=== PATIENT | male | born 1955 | race Caucasian/White ===

== ENCOUNTER 2018-12-15 03:45 | Emergency (ER) | payer OTHER, SELFPAY ==
[2018-12-15 03:46] VITALS: BP 159/102; PULSE 76; RESP 22; TEMP 36.4; O2SAT 100; BMI 29.9
--- NOTE | 2018-12-15 03:58 | ED.VISSUMM ---
- ER Visit Summary Date of Service: 12/15/18 Chief Complaint: Difficulty urinating, bleeding History of Present Illness: The patient is a 63 M who recently started to perform self cath at home due to not being able to empty his bladder. He is still undergoing testing. He follows with Dr. Menezes who comes down to the [facility]. Patient states he was given different chronic catheter to try that had a curved tip. He self cathed around midnight tonight after getting off work and has had bleeding from his penis since that time. He tried to increase fluids to flush himself out, but continues to bleed significantly. Patient takes baby aspirin daily but no other anticoagulants. Physical Examination: Vital signs significant for blood pressure 159/102, otherwise unremarkable. Patient standing at bedside holding a urinal with bloody urine in it. Heart is regular rate and rhythm. Lungs sounds are clear. Abdomen is soft nontender. Test Results: CBC was a hemoglobin of 12.0. Chemistry studies reveal glucose of 179, BUN 28, creatinine 1.83. Coags are normal. I do not have any prior lab values to compare to here. I checked [employer] and do not have prior lab values. Emergency Department Course and Treatment: Patient had a three-way catheter placed and irrigation was started.. There is return of dark bloody urine. Manual irrigation has been required frequently to break up clots. I did review notes from [facility] urology. Patient had an elevated PSA of 4.49 on October 02. He is scheduled to have a cystoscopy in December in [place]. I discussed with the patient his need for hospital admission. I spoke with our local urologist, but he will be out of town this weekend and not able to care for the patient unless bleeding stops very shortly. He recommended hospitalization at a tertiary facility. I spoke with [facility] and patient has been accepted by Dr. Delgado. Treatment Plan: [] Disposition: Transfer Impression: Gross hematuria This note was generated with [employer] dictation software. It may contain incorrect words, spelling, and punctuation that were not noted in review of the chart prior to signing ED Disposition - Plan for ED Patient: Referrals: Care Physician,No Primary [NON-STAFF] -
[2018-12-15 04:18] LABS: Absolute Lymphocyte Count 2.05 X10^3/ul (0.83-4.51); Basophil# 0.06 X10^3/uL; Basophil% 0.7 % (0-1); Eosinophil# 0.23 X10^3/uL; Eosinophils% 2.7 % (0-5); Hematocrit 35.5 % (40-54); Lymphocyte # 2.05 X10^3/ul (4.0); Lymphocyte % 24.5 % (19-41); Mean Corp Hgb Conc 33.8 g/gl (32-36); Mean Corpuscular Hgb 29.1 pg (27.0-32.0); Monocyte% 11.9 % (0-10); Neutrophil # 5.01 X10^3/uL (2.7-7.7); Platelet Count 259 K/mm3 (150-450); RBC Distribution Width CV 12.9 % (11.6-14.6); RBC Distribution Width SD 39.5 fl (35.1-43.9); Red Blood Count 4.13 M/mm3 (4.6-6.2); White Blood Count 8.4 K/mm3 (4.4-11.0)
[2018-12-15] MEDS: 0.9% Normal Saline 1,000 ML 150 ML IV (04:18)
[2018-12-15 04:19] LABS: POSITIVE COUNT NO; POSITIVE DIFFERENTIAL NO; POSITIVE MORPHOLOGY NO
[2018-12-15 04:27] LABS: Prothrombin Time (Protime)PT. 13.4 SECONDS (11.7-14.9)
[2018-12-15 04:28] LABS: Partial Thromboplast Time 29.1 Seconds (24.1-36.2)
[2018-12-15 04:36] LABS: Anion Gap 13 (5-15); BUN 28 mg/dL (7-18); BUN/Creat Ratio 15.3 RATIO (10-20); Calcium,Total 8.5 mg/dL (8.5-10.1); Chloride 105 mmol/L (98-107); Creatinine, Serum 1.83 mg/dL (0.70-1.30); EST Glomerular Filtration Rate 40 mL/min (>60); Est Glom Filt Rate - Afr Amer 48 mL/min (>60); Estimated Creatinine Clearance 42.86 ml/min; Glucose 179 mg/dL (74-106); Potassium 3.7 mmol/L (3.5-5.1); Sodium Level 139 mmol/L (136-145)
[2018-12-15] MEDS: LORazepam 2 MG/ML Syringe 0.5 MG IV (05:00)
--- NOTE | 2018-12-15 05:56 | ED.RN ---
PT DOOLEY MANUALLY IRRIGATED FOR MANY LUZ SIZE CLOTS. DOOLEY WILL DRAIN WITH THE CONTINUOUS IRRIGATION FOR BRIEF TIME THEN WILL REQUIRE MANUAL IRRIGATION. AT THIS TIME, DOOLEY DRAINING NUR RED
--- NOTE | 2018-12-15 06:11 | NURSING ---
ACCEPTED TO [facility] BY DR. LAM 1 BED REPORT
[2018-12-15 06:29] VITALS: BP 122/64; PULSE 76; RESP 16; O2SAT 98
[2018-12-15 07:04] VITALS: BP 122/74; PULSE 94; RESP 16; TEMP 36.4; O2SAT 98
[2018-12-15 08:21] VITALS: BP 124/71; PULSE 87; RESP 14; O2SAT 97
--- NOTE | 2018-12-15 08:22 | ED.RN ---
EMS IN ED.
== END 2018-12-15 08:28 | disposition short-term general hospital (02) ==
PROVIDERS: Emergency Provider Emergency Medicine; Family Provider Family Medicine; PCP Family Medicine
DX: R31.0 Gross hematuria (principal); E11.9 Type 2 diabetes mellitus without complications; E78.00 Pure hypercholesterolemia, unspecified; I10 Essential (primary) hypertension; Z79.82 Long term (current) use of aspirin; Z79.84 Long term (current) use of oral hypoglycemic drugs; Z79.899 Other long term (current) drug therapy
CPT/HCPCS: 51702; 80048; 85025; 85610; 85730; 86850; 86900; 96361; 96374; 99285; J7120; A4216

== ENCOUNTER → 2020-04-22 | Outpatient (CLI) | payer OTHER, SELFPAY ==
[2020-04-22 11:41] VITALS: BMI 28.7
--- NOTE | 2020-04-22 11:50 | LES_PTH ---
PATIENT: FABIO ROSE LOC: [facility] U#:[id number] AGE/SX: 64/M ROOM: RE04/22/[address]: Dr. Clifton Giles MD : [id number] BED: DIS: 04/22/2020 SPEC #: [id number] RECD: 04/22/20 12:46 STATUS: JOHANA CHERRYLele #: [id number] BERNARD: 04/22/20 11:[address]: Clifton Giles DEPT: SURGICAL PATHOLOGY RECD BY: Elkin Christine ENTERED: 04/23/20 09:26 SP TYPE: Lesion OTHR DR: Dr. Alexandre Giles III, MD Tissues: A - Skin of abdomen, NOS B - Skin of abdomen, NOS Procedures: Surgery Specimen Level IV HEADER OPERATION: Excision of abdominal lesion x2 PRE-OP DIAGNOSIS: Neoplasm abdomen x2 TISSUE SUBMITTED: A - Right superior abdomen, B - Right inferior abdomen MICROSCOPIC DIAGNOSIS A. Right superior abdomen lesion, excisional biopsy: Compound nevus, completely excised in the planes of sections examined. B. Right inferior abdomen lesion, excisional biopsy: Compound nevus, completely excised in the planes of sections examined. SJ:rg 04/24/20 COMMENT Case has been reviewed in consultation with Dr. Mathias who concurs with the above diagnosis. IDC:AM MICROSCOPIC DESCRIPTION Slides are reviewed. GROSS DESCRIPTION A - Received in fixative is one container labeled with the patient's name and designated right superior abdomen. The specimen consists of a piece of castillo-white skin measuring 1.4 x 0.5 x 0.3 cm. A brown lesion is noted on the surface measuring 0.3 x 0.3 cm. The specimen is inked, serially sectioned and submitted entirely in one cassette. B - Received in fixative is one container labeled with the patient's name and designated right inferior abdomen. The specimen consists of a piece of castillo-white skin measuring 1 x 0.5 cm and up to 0.5 cm in thickness. A brown lesion is noted in the center measuring 0.3 x 0.2 cm. The specimen is inked, serially sectioned and submitted entirely in one cassette. / JOHN:avila 04/23/20 TC:1 CPT: 87745 x2
== END | disposition home or self-care (01) ==
LOC: LABSPEC 12:50
PROVIDERS: PCP Family Medicine; Referring Provider Surgery; Visit Provider Surgery
DX: D22.5 Melanocytic nevi of trunk (principal)
CPT/HCPCS: 88305

== ENCOUNTER 2021-11-04 13:30 | Outpatient (CLI) | payer OTHER, SELFPAY ==
--- NOTE | 2021-11-04 13:34 | ECHOD_ITS ---
Reason For Study: Arrhythmia Procedure This was a 2D Doppler, Color Flow transthoracic echocardiogram. Exam performed in department. Left Ventricle Normal LV size. Left ventricular systolic function is normal. The estimated ejection fraction is 60 %. Stage 1 diastolic dysfunction. No regional wall motion abnormalities noted. Right Ventricle Normal RV size. Normal systolic function. Atria Normal left atrium. Normal right atrium. Mitral Valve Normal mitral valve. Mild (1+) eccentric mitral valve insufficiency. Tricuspid Valve Normal tricuspid valve. Mild (1+) tricuspid valve insufficiency. Pulmonary artery systolic pressure is 28 mmHg. Aortic Valve Trisinus/trileaflet aortic valve. Pulmonic Valve Normal pulmonic valve. Great Vessels Normal aortic root. The pulmonary artery is normal size. Normal inferior vena cava. Pericardium/Pleural No pericardial effusion. MMode/2D Measurements & Calculations LVIDd: 4.1 cm IVSd: 1.1 cm LA dimension: 4.5 cm LVIDs: 2.6 cm LVPWd: 0.94 cm FS: 35.0 % LAV(MOD-bp): 59.9 ml LA A4 area: 19.9 cm2 RA A4 area: 20.4 cm2 LAV(MOD-bp) Indexed: 28.6 ml/m2 LAV(MOD-sp2): 62.6 ml LAV(MOD-sp4): 56.0 ml Time Measurements MV dec time: 0.27 sec Doppler Measurements & Calculations MV E max sumit: 62.0 cm/sec Lat Peak E' Sumit: 6.5 cm/sec Med Peak E' Sumit: 4.4 cm/sec MV A max sumit: 97.5 cm/sec E/E' lat: 9.5 E/E' med: 14.1 MV E/A: 0.64 MV V2 max: 111.7 cm/sec MV P1/2t max sumit: 80.8 cm/sec Ao V2 max: 128.4 cm/sec MV max P.0 mmHg MV P1/2t: 102.7 msec Ao max P.6 mmHg MV V2 mean: 55.0 cm/sec MV dec slope: 230.3 cm/sec2 MV mean P.5 mmHg MVA(P1/2t): 2.1 cm2 MV V2 VTI: 25.8 cm LV V1 max: 105.1 cm/sec PA V2 max: 88.6 cm/sec TR max sumit: 245.0 cm/sec LV V1 max P.4 mmHg TR max P.0 mmHg ECHO/Echo Complete Interpretation Summary Normal LV size. Left ventricular systolic function is normal. The estimated ejection fraction is 60 %. Mild (1+) eccentric mitral valve insufficiency. Pulmonary artery systolic pressure is 28 mmHg. Stage 1 diastolic dysfunction. Structurally normal valves. Ordering Physician: Kashif Schneider Referring Physician: Cruz Damon Performed By: Michael Romeo RCS
== END 2021-11-04 23:59 | disposition short-term general hospital (02) ==
LOC: CVS 13:33
PROVIDERS: PCP Family Medicine; Referring Provider Internal Medicine Cardiovascular Disease; Visit Provider Internal Medicine Cardiovascular Disease
DX: I10 Essential (primary) hypertension (principal); I47.1 Supraventricular tachycardia
CPT/HCPCS: 93306

== ENCOUNTER 2022-02-03 10:09 | Emergency (ER) | payer OTHER, SELFPAY ==
[2022-02-03 10:11] VITALS: BP 153/90; PULSE 69; RESP 14; TEMP 36.5; O2SAT 98; BMI 28.4
--- NOTE | 2022-02-03 10:35 | EDS_ITS ---
HPI History of Present Illness Chief Complaint: Eye Problem Informant: patient Onset/Context/Timing Location: Right Eye Onset: Today Timing: Continuous Current Severity: Mild Maximum Severity: Mild Associated Symptoms Associated Symptoms - Eyes: Foreign body sensation and Itching; Negative for Burning, Crusting, Drainage, Eyelid swelling, Matting, Pain, Photophobia and Redness History of injury: No Narrative Narrative: History of diabetes and hypertension. He wears glasses. No contacts. No prior eye surgery. States 1 to 2 weeks ago it is similar episode where he felt there was a foreign body or something in his eye. He went to an urgent care they did not see anything specific they placed him on eye ointment. He denies any discharge or swelling no specific change in his vision. 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 Patient is having painless decreased vision in his right eye Prior similar symptoms: Yes Recent Illness/Hospitalization: No PFSH PFSH Medical History Anxiety Back problem BPH (benign prostatic hyperplasia) COVID-19 virus detected (07/06/21) Depression Dyslipidemia Essential hypertension GERD (gastroesophageal reflux disease) Paroxysmal supraventricular tachycardia Superficial spreading malignant melanoma of skin Type 2 diabetes mellitus Home Medications rosuvastatin 5 mg PO DAILY 03/13/17 [History Last Taken Unknown] cyclobenzaprine 10 mg tablet 10 mg PO TID PRN 02/12/20 [History Last Taken Unknown] esomeprazole magnesium 40 mg granules delayed release for susp 40 mg PO DAILY 02/12/20 [History Last Taken Unknown] dulaglutide 1.5 mg/0.5 mL subcutaneous pen injector 1.5 mg SUBCUT QWEEK 10/21/21 [History Last Taken Unknown] metformin 1,000 mg tablet 1,000 mg PO BIDCM tab 10/21/21 [History Last Taken Unknown] trazodone 100 mg tablet 100 mg PO DAILY tab 10/21/21 [History Last Taken Unknown] amlodipine 10 mg tablet 10 mg PO DAILY #90 tab 12/02/21 [Rx Last Taken Unknown] carvedilol 25 mg tablet 25 mg PO BID #180 tab 12/02/21 [Rx Last Taken Unknown] losartan 100 mg tablet 100 mg PO DAILY #90 tab 12/02/21 [Rx Last Taken Unknown] erythromycin 02/03/22 [History Last Taken Unknown] Allergy/AdvReac Type Severity Reaction Status Date / Time tramadol Allergy Mild rash Verified 02/03/22 10:13 amitriptyline Allergy Hives Verified 02/03/22 10:13 bee venom protein (honey bee) Allergy Anaphylaxis Verified 02/03/22 10:13 Family History Mother Cancer lung Father Alzheimer disease Surgical History History of colonoscopy History of prostatectomy History of radiofrequency ablation procedure for cardiac arrhythmia (2013) History of repair of left rotator cuff History of tonsillectomy Social History Smoking Status: Former smoker how long ago did patient quit smokin years ago alcohol intake: current alcohol intake frequency: holidays/special occasions only substance use type: does not use caffeine: Yes Type: coffee ROS ROS ED Review of Systems ROS Unobtainable: Denies due to encephalopathy Constitutional Constitutional ED: Denies fever(s) Eyes Eyes: Denies blurry vision, change in vision or diplopia ENT ENT ED: Denies ear pain Cardiovascular Cardiovascular: Denies chest pain Respiratory/Chest Respiratory/Chest: Denies dyspnea Gastrointestinal Gastrointestinal: Denies abdominal pain, diarrhea, nausea or vomiting Genitourinary Genitourinary ED: Denies dysuria Musculoskeletal Musculoskeletal: Denies myalgias Integumentary Denies rash Neurologic Neurologic: Denies headache(s) Psychiatric Psychiatric: Denies depression Endocrine Endocrinology: Denies polyuria Hematologic/Lymphatic Hematologic/Lymphatic: Denies easy bruising Allergic/Immunologic Allergic/Immunologic ED: Denies urticaria EXAM Physical Exam Narrative Exam Narrative: 66-year-old male no acute distress. Vital signs stable afebrile. Visual acuity is 20/50 right eye and 20/25 left eye and 20/25 bilaterally. Pupils round reactive light extra motions are intact. There is no signs of any swelling to either the upper or lower lid of the right eye. There is no discharge or drainage there is no excessive watering. He can open and close both eyes without difficulty. I everted the upper and lower lids of the right eye there is no foreign body or any abnormality. Lungs are clear. Heart regular rhythm. Abdomen soft nontender. Neurologic exam normal. Const Vital Signs: 02/03/22 10:11 Temperature 97.7 F L Temperature Source Temporal Pulse Rate 69 Respiratory Rate 14 Blood Pressure 153/90 H Blood Pressure Mean 111 Pulse Ox 98 Oxygen Delivery Method Room Air Positive well nourished and well developed; Negative for obese, cachectic, contractures or unkempt General Appearance ED: well developed and NAD; Negative for unkempt, cachectic or contractures Nutritional Appearance: Negative for cachectic or obese HEENT atraumatic; Negative for trauma or tenderness Eyes General Eye ED: Yes normal appearance of both eyes, normal light reflex and exophthalmos; Negative for enophthalmos, proptosis, pale conjunctiva or scleral icterus Visual Acuity: visual acuity right eye 50 and visual acuity left eye 25 Periorbital: periorbital findings normal Eyelid: eyelids normal Conjunctiva: conjunctiva normal Sclera: sclera normal Cornea: cornea normal Pupil: PERRL and accommodation reflex normal; Negative for dilated, fixed, irregular, not reactive, sluggish or Thiago [place] pupil Neck no lymphadenopathy, supple and no JVD General: Negative for tenderness Resp normal respiratory effort, no retractions, no use of accessory muscles, clear to auscultation bilaterally and No percussion normal Cardio regular rate, regular rhythm, S1 normal heart sound, S2 normal heart sound and no murmurs GI non-tender, non-distended and no masses Auscultation: normoactive bowel sounds Palpation: soft Back/Spine no CVA tenderness General Back: Negative for CVA tenderness Extremity normal to inspection General Extremety ED: Negative for edema General Extremity: Negative for edema Neuro oriented x3 Sensorium / Orientation: alert, oriented to person, oriented to place and oriented to time Psych Appearance: Negative for unkempt Attitude: No agitated Mood & Affect: Negative for depressed or tearful Skin no wounds Lesions: no lesions Rashes: no rashes MDM MDM MDM Narrative Medical decision making narrative: 66-year-old male with right eye discomfort and foreign body sensation. Visual acuity 20/50 in the right eye and 20/25 left eye. 20/25 bilaterally. Slit lamp examination of his right eye with fluorescein and tetracaine shows no abnormality. No scratch. No foreign body. No ulcer. Funduscopic exam was limited I did not see any acute abnormality. This was done with the pupil not dilated. Patient's neurologic exam is normal. He does not want undergo a CAT scan. I spoke to Dr. Ball from the [facility] they will see him in the office today at 1:00. I discussed this with the patient. He is comfortable with the plan. Discharge Plan Triage Chief Complaint: Eye Problem ED Provider: Rajeev Griffith Dx/Rx/DC Orders Clinical Impression: Decreased vision of right eye, History of diabetes mellitus Instructions: ED Blurred Vision Prescriptions: No Action esomeprazole magnesium [address] for susp in packet 40 mg PO DAILY RF: 0 cyclobenzaprine 10 mg tablet 10 mg PO TID PRNRF: 0 trazodone 100 mg tablet 100 mg PO DAILY RF: 0 Trulicity 1.5 mg/0.5 mL pen injector 1.5 mg subcut QWEEK RF: 0 amlodipine 10 mg tablet 10 mg PO DAILY Qty: 90 RF: 3 carvedilol 25 mg tablet 25 mg PO BID Qty: 180 RF: 3 losartan 100 mg tablet 100 mg PO DAILY Qty: 90 RF: 3 rosuvastatin 5 MG tablet 5 mg PO DAILY RF: 0 metformin 1,000 mg tablet 1,000 mg PO BIDCM RF: 0 erythromycin 5 mg/gram (0.5 %) ointment RF: 0 Primary Care Provider: rCuz Damon Referrals: Cruz Damon MD [Primary Care Provider] - Lexa Ball MD [STAFF PHYSICIAN] - (Go to the [facility] and I will see you today.) Activity Restrictions/Additional Instructions: Go to the [facility] and they will see you today at 1:00 p.m.. Disposition Disposition: Home, Self Care
[2022-02-03] MEDS: Tetracaine 0.5% Ophthalmic Bottle 1 DRP OPHTHALMIC (11:22)
[2022-02-03] MEDS: Fluorescein 1 MG STRIP 1 STRIP OPHTHALMIC (11:22)
== END 2022-02-03 11:22 | disposition home or self-care (01) ==
LOC: ED 10:53
PROVIDERS: Emergency Provider Emergency Medicine; PCP Family Medicine; Visit Provider Emergency Medicine
DX: H54.7 Unspecified visual loss (principal); E11.9 Type 2 diabetes mellitus without complications; I10 Essential (primary) hypertension; E78.5 Hyperlipidemia, unspecified; N40.0 Benign prostatic hyperplasia without lower urinary tract symptoms; Z86.16 Personal history of COVID-19; K21.9 Gastro-esophageal reflux disease without esophagitis; Z79.899 Other long term (current) drug therapy; Z79.84 Long term (current) use of oral hypoglycemic drugs; F41.9 Anxiety disorder, unspecified; F32.A Depression, unspecified; Z87.891 Personal history of nicotine dependence
CPT/HCPCS: 99283

== ENCOUNTER → 2022-08-04 | Outpatient (CLI) | payer OTHER, SELFPAY ==
--- NOTE | 2022-08-04 14:53 | NEURO ---
NCS and/or EMG Patient Report Ordering Doctor: Cruz Damon DATE OF SERVICE: 08/04/22 Dar presents for electrodiagnostic testing of the lower limbs. He reports frequent numbness in the toes. He reports intermittent low back pain. Electrodiagnostic findings right peroneal motor nerve demonstrates prolonged distal latency with reduced amplitude and reduced conduction velocity. Left peroneal motor nerve demonstrates reduced amplitude and reduced conduction velocity. Tibial motor conduction is decreased bilaterally. Sensory responses are within normal limits. Prolonged peroneal and tibial F waves bilaterally. Prolonged H reflex bilaterally. Needle EMG, all muscles tested in the lower limbs showed no evidence of denervation with normal motor unit action potentials. Electrodiagnostic impression: This is an abnormal study in the lower limbs 1. Electrodiagnostic findings suggestive of peripheral polyneuropathy, primarily with motor involvement and demyelination. 2. There is no electrodiagnostic evidence for lumbosacral radiculopathy.
== END | disposition home or self-care (01) ==
LOC: PSN 06:02
PROVIDERS: PCP Family Medicine; Referring Provider Family Medicine; Visit Provider Family Medicine
DX: R20.0 Anesthesia of skin (principal); R20.2 Paresthesia of skin
CPT/HCPCS: 95886; 95913

== ENCOUNTER 2023-05-10 17:05 | Emergency (ER) | payer OTHER, SELFPAY ==
[2023-05-10 17:09] VITALS: BP 152/69; PULSE 104; RESP 17; TEMP 36.3; O2SAT 98; BMI 27.9
[2023-05-10] MEDS: DiphenhydrAMINE 25 MG Capsule 50 MG PO (17:13)
--- NOTE | 2023-05-10 18:56 | ED.RN ---
PT STATES RASH TO B/L ARMS AND CHEST AFTER BEE STING. BENADRYL GIVEN AT 1713, PT STATES RASH IS MUCH BETTER AT THIS TIME
--- NOTE | 2023-05-10 19:43 | EDS_ITS ---
HPI History of Present Illness Chief Complaint: Allergic Reaction Narrative Narrative: 67-year-old male presenting with allergic reaction. He states that he got stung by a wasp and is allergic to bees. Initially had localized allergic reaction to the right leg but started having itching everywhere and developed a rash. He did state he had a little bit of shortness of breath but also states he was just anxious because of his allergy. No abdominal pain. [facility] Medical History Anxiety Back problem BPH (benign prostatic hyperplasia) COVID-19 virus detected (07/06/21) Depression Dyslipidemia Essential hypertension GERD (gastroesophageal reflux disease) Paroxysmal supraventricular tachycardia Superficial spreading malignant melanoma of skin Type 2 diabetes mellitus Home Medications metformin 1,000 mg tablet 1,000 mg PO BIDCM 10/21/21 [History Last Taken Unknown] epinephrine 0.3 mg/0.3 mL injection, auto-injector 0.3 ml subcut ONCE PRN 10/20/22 [History Last Taken Unknown] esomeprazole magnesium 40 mg capsule,delayed release 40 mg PO DAILY 10/20/22 [History Last Taken Unknown] fluticasone propionate 50 mcg/actuation nasal spray,suspension 2 spray intranasal DAILY PRN 10/20/22 [History Last Taken Unknown] gabapentin 100 mg capsule 200 mg PO DAILY 10/20/22 [History Last Taken Unknown] ropinirole 0.5 mg tablet 0.5 mg PO .COMPLEX 10/20/22 [History Last Taken Unknown] trazodone 100 mg tablet 100 mg PO QHS 10/20/22 [History Last Taken Unknown] amlodipine 10 mg tablet 10 mg PO DAILY #90 tabs 03/29/23 [Rx Last Taken Unknown] carvedilol 25 mg tablet 25 mg PO BID #180 tabs 03/29/23 [Rx Last Taken Unknown] losartan 100 mg tablet 100 mg PO DAILY #90 tabs 03/29/23 [Rx Last Taken Unknown] Allergy/AdvReac Type Severity Reaction Status Date / Time tramadol Allergy Mild rash Verified 10/20/22 10:55 amitriptyline Allergy Hives Verified 10/20/22 10:55 bee venom protein (honey bee) Allergy Anaphylaxis Verified 10/20/22 10:55 Family History Mother Cancer lung Father Alzheimer disease Surgical History History of colonoscopy History of prostatectomy History of radiofrequency ablation procedure for cardiac arrhythmia (2013) History of repair of left rotator cuff History of tonsillectomy Social History Smoking Status: Former smoker how long ago did patient quit smokin years ago alcohol intake: current alcohol intake frequency: holidays/special occasions only substance use type: does not use caffeine: Yes Type: coffee ROS ROS ED Constitutional Constitutional ED: Denies chills, fever(s) or sweats Eyes Eyes: Denies blurry vision or change in vision ENT ENT ED: Denies ear pain or sore throat Cardiovascular Cardiovascular: Denies chest pain, palpitations or racing heartbeat Respiratory/Chest Respiratory/Chest: Reports dyspnea; Denies cough or sputum Gastrointestinal Gastrointestinal: Denies abdominal pain, constipation, diarrhea, nausea or vomiting Genitourinary Genitourinary ED: Denies dysuria, hematuria or urinary frequency Musculoskeletal Musculoskeletal: Denies arthralgias, myalgias or neck pain Integumentary Reports rash; Denies abscess or Abrasions Neurologic Neurologic: Denies headache(s), paresthesias or weakness Psychiatric Psychiatric: Denies anxiety, depression, suicidal ideation or suicidal thoughts Endocrine Endocrinology: Denies polydipsia or polyuria EXAM Physical Exam Const Vital Signs: 05/10/23 17:09 05/10/23 19:53 Temperature 97.4 F L Temperature Source Temporal Pulse Rate 104 H 81 Respiratory Rate 17 18 Blood Pressure 152/69 H Blood Pressure Mean 96 Pulse Ox 98 98 Oxygen Delivery Method Room Air Positive well nourished General Appearance ED: NAD HEENT Reports moist mucous membranes Eyes PERRL and EOMs intact bilaterally General Eye ED: Negative for pale conjunctiva or scleral icterus Resp normal respiratory effort and clear to auscultation bilaterally Cardio regular rate and regular rhythm GI normal to inspection, nondistended, normoactive bowel sounds Neuro oriented x3 and CN's II-XII intact bilaterally Sensorium / Orientation: alert Skin Skin Narrative: Erythema to the right medial distal calf. No induration. Mild edema MDM MDM MDM Narrative Medical decision making narrative: Patient presenting with allergic reaction. Due to heavy volumes in the ER she did take a while for the patient to get back to her room. He was given Benadryl in triage. On examination he states his symptoms are nearly gone except for the place where he was actually stung. He does not have any shortness of breath. The rashes on his upper extremities have resolved. No abdominal pain he is not nauseous. At this point I feel he stable for discharge. Return precautions were discussed. Impression: 1. Allergic reaction 2. Wasp sting Discharge Plan Triage Chief Complaint: Allergic Reaction ED Provider: Nito Crystal Dx/Rx/DC Orders Instructions: ED Insect Sting, Local Reaction Prescriptions: No Action trazodone 100 mg tablet 100 mg PO QHS Patient Comments: Take 1 tablet by mouth daily at bedtime for 14 days. esomeprazole magnesium 40 mg capsule,delayed release(DR/EC) 40 mg PO DAILY ropinirole 0.5 mg tablet 0.5 mg PO .COMPLEX Rx Instructions: 0.5 mg orally; Take one tablet in an evening for 2 weeks then go to two in the evening. gabapentin 100 mg capsule 200 mg PO DAILY Patient Comments: TAKE 1 CAPSULE in the evening for one week then TAKE 2 CAPSULES DAILY FOR 1 WEEK, then TAKE 3 CAPSULES DAILY fluticasone propionate 50 mcg/actuation spray,suspension 2 spray intranasal DAILY PRN Patient Comments: Use 2 Sprays in each nostril once daily. Rinse mouth after use. epinephrine 0.3 mg/0.3 mL auto-injector 0.3 ml subcut ONCE PRN Patient Comments: Inject 0.3 mL intramuscularly as needed. metformin 1,000 mg tablet 1,000 mg PO BIDCM amlodipine 10 mg tablet 10 mg PO DAILY Qty: 90 3RF carvedilol 25 mg tablet 25 mg PO BID Qty: 180 3RF Rx Instructions: must administer with a meal/food losartan 100 mg tablet 100 mg PO DAILY Qty: 90 3RF Primary Care Provider: Cruz Damon Referrals: Cruz Damon MD [Primary Care Provider] - Disposition Disposition: Home, Self Care Discharge Date/Time: 05/10/23 19:53
[2023-05-10 19:53] VITALS: PULSE 81; RESP 18; O2SAT 98
== END 2023-05-10 19:53 | disposition home or self-care (01) ==
PROVIDERS: Emergency Provider Student in an Organized Health Care Education/Training Program; PCP Family Medicine; Visit Provider Student in an Organized Health Care Education/Training Program
DX: T63.464A Toxic effect of venom of wasps, undetermined, initial encounter (principal); E11.9 Type 2 diabetes mellitus without complications; Z87.891 Personal history of nicotine dependence; R06.02 Shortness of breath; I10 Essential (primary) hypertension; R21 Rash and other nonspecific skin eruption; E78.5 Hyperlipidemia, unspecified
CPT/HCPCS: 99283; A4216

== ENCOUNTER 2023-06-02 15:07 | Emergency (ER) | payer OTHER, SELFPAY ==
[2023-06-02] VITALS (33 sets, daily range): BP systolic 69–143; BP diastolic 40–85; PULSE 18–96; RESP 11–24; TEMP 36.4; O2SAT 91–100; BMI 28.3
--- NOTE | 2023-06-02 15:23 | EX.ED.DYSGE1 ---
HPI History of Present Illness Chief Complaint: Allergic Reaction Informant: patient Narrative Narrative: Patient is a 67-year-old male with history of anaphylaxis to bee stings as well as SVT, type 2 diabetes mellitus (last A1c less than 7) presenting after a bee sting to his left foot. Occurred approximately 50 minutes prior to arrival. While patient has an EpiPen at home he decided to come to the ER and not use his home EpiPen. He is complaining of itchy rash and he feels that his legs are swelling his chest is getting tight. He denies any nausea or vomiting. He has a history of anaphylaxis to bee stings. Did take 2 [id number] Benadryl prior to arrival. No other complaints or concerns at this time. [facility] Medical History Anxiety Back problem BPH (benign prostatic hyperplasia) COVID-19 virus detected (07/06/21) Depression Dyslipidemia Essential hypertension GERD (gastroesophageal reflux disease) Paroxysmal supraventricular tachycardia Superficial spreading malignant melanoma of skin Type 2 diabetes mellitus Home Medications metformin 1,000 mg tablet 1,000 mg PO BIDCM 10/21/21 [History Last Taken Unknown] epinephrine 0.3 mg/0.3 mL injection, auto-injector 0.3 ml subcut ONCE PRN 10/20/22 [History Last Taken Unknown] esomeprazole magnesium 40 mg capsule,delayed release 40 mg PO DAILY 10/20/22 [History Last Taken Unknown] fluticasone propionate 50 mcg/actuation nasal spray,suspension 2 spray intranasal DAILY PRN 10/20/22 [History Last Taken Unknown] gabapentin 100 mg capsule 200 mg PO DAILY 10/20/22 [History Last Taken Unknown] ropinirole 0.5 mg tablet 0.5 mg PO .COMPLEX 10/20/22 [History Last Taken Unknown] trazodone 100 mg tablet 100 mg PO QHS 10/20/22 [History Last Taken Unknown] carvedilol 25 mg tablet 25 mg PO BID #180 tabs 03/29/23 [Rx Last Taken Unknown] losartan 100 mg tablet 100 mg PO DAILY #90 tabs 03/29/23 [Rx Last Taken Unknown] amlodipine 10 mg tablet 10 mg PO DAILY #90 tabs 05/26/23 [Rx Last Taken Unknown] famotidine 20 mg tablet (Pepcid) 20 mg PO DAILY #7 tabs 06/02/23 [Rx Last Taken Unknown] prednisone 20 mg tablet 40 mg (2 x 20 mg) PO DAILY #8 tabs 06/02/23 [Rx Last Taken Unknown] Allergy/AdvReac Type Severity Reaction Status Date / Time tramadol Allergy Mild rash Verified 06/02/23 15:08 amitriptyline Allergy Hives Verified 06/02/23 15:08 bee venom protein (honey bee) Allergy Anaphylaxis Verified 06/02/23 15:08 Family History Mother Cancer lung Father Alzheimer disease Surgical History History of colonoscopy History of prostatectomy History of radiofrequency ablation procedure for cardiac arrhythmia (2013) History of repair of left rotator cuff History of tonsillectomy Social History Smoking Status: Former smoker how long ago did patient quit smokin years ago alcohol intake: current alcohol intake frequency: holidays/special occasions only substance use type: does not use caffeine: Yes Type: coffee ROS ROS ED Constitutional Constitutional ED: Denies chills or fever(s) Eyes Eyes: Denies blurry vision or change in vision ENT ENT ED: Reports other Details: lip swelling , itchy eyes ; Denies sore throat Cardiovascular Cardiovascular: Denies chest pain or palpitations Respiratory/Chest Respiratory/Chest: Denies cough Gastrointestinal Gastrointestinal: Denies abdominal pain, diarrhea, nausea or vomiting Musculoskeletal Musculoskeletal: Denies arthralgias or myalgias Integumentary Reports rash Neurologic Neurologic: Denies headache(s) Psychiatric Psychiatric: Reports anxiety EXAM Physical Exam Const Vital Signs: 06/02/23 15:08 06/02/23 15:07 06/02/23 15:28 Temperature 97.5 F L Temperature Source Temporal Pulse Rate 76 Respiratory Rate 18 14 Respiratory Effort Respiratory Depth Respiratory Pattern Blood Pressure 74/42 L 69/40 L 104/58 L Blood Pressure Mean 52 49 73 Pulse Ox 94 93 Oxygen Delivery Method Room Air Room Air 06/02/23 15:19 06/02/23 15:57 06/02/23 16:25 Temperature Temperature Source Pulse Rate 18 L 82 Respiratory Rate 16 15 Respiratory Effort Short of Breath Respiratory Depth Deep Respiratory Pattern Tachypnea Blood Pressure 124/70 H 143/80 H Blood Pressure Mean 88 101 Pulse Ox 100 96 Oxygen Delivery Method Room Air Room Air 06/02/23 16:43 06/02/23 15:58 06/02/23 16:00 Temperature Temperature Source Pulse Rate 83 78 72 Respiratory Rate 18 21 H 13 Respiratory Effort Respiratory Depth Respiratory Pattern Blood Pressure 143/80 H 131/73 H Blood Pressure Mean 101 91 Pulse Ox 96 95 96 Oxygen Delivery Method Room Air 06/02/23 16:10 06/02/23 16:15 06/02/23 16:22 Temperature Temperature Source Pulse Rate 80 79 Respiratory Rate 13 13 11 L Respiratory Effort Respiratory Depth Respiratory Pattern Blood Pressure 143/80 H Blood Pressure Mean 98 Pulse Ox 95 Oxygen Delivery Method 06/02/23 16:30 06/02/23 16:40 06/02/23 16:50 Temperature Temperature Source Pulse Rate 96 84 Respiratory Rate 18 18 24 H Respiratory Effort Respiratory Depth Respiratory Pattern Blood Pressure Blood Pressure Mean Pulse Ox 94 98 Oxygen Delivery Method 06/02/23 17:00 06/02/23 18:08 06/02/23 17:10 Temperature Temperature Source Pulse Rate 76 88 81 Respiratory Rate 19 H 16 19 H Respiratory Effort Respiratory Depth Respiratory Pattern Blood Pressure 126/85 H 118/77 Blood Pressure Mean 97 90 Pulse Ox 95 93 94 Oxygen Delivery Method Room Air 06/02/23 17:15 06/02/23 17:20 06/02/23 17:30 Temperature Temperature Source Pulse Rate 80 Respiratory Rate 17 Respiratory Effort Respiratory Depth Respiratory Pattern Blood Pressure 125/73 H 117/67 Blood Pressure Mean 90 83 Pulse Ox 95 92 Oxygen Delivery Method 06/02/23 17:40 06/02/23 17:45 06/02/23 17:50 Temperature Temperature Source Pulse Rate Respiratory Rate Respiratory Effort Respiratory Depth Respiratory Pattern Blood Pressure 115/70 Blood Pressure Mean 85 Pulse Ox 93 92 Oxygen Delivery Method 06/02/23 18:00 06/02/23 18:01 06/02/23 18:10 Temperature Temperature Source Pulse Rate Respiratory Rate Respiratory Effort Respiratory Depth Respiratory Pattern Blood Pressure 118/77 Blood Pressure Mean 86 Pulse Ox 94 92 Oxygen Delivery Method 06/02/23 18:15 06/02/23 18:20 06/02/23 18:30 Temperature Temperature Source Pulse Rate Respiratory Rate Respiratory Effort Respiratory Depth Respiratory Pattern Blood Pressure 108/74 118/74 Blood Pressure Mean 87 87 Pulse Ox 91 96 93 Oxygen Delivery Method 06/02/23 18:40 06/02/23 18:45 06/02/23 18:50 Temperature Temperature Source Pulse Rate Respiratory Rate Respiratory Effort Respiratory Depth Respiratory Pattern Blood Pressure 119/72 Blood Pressure Mean 86 Pulse Ox 92 93 96 Oxygen Delivery Method 06/02/23 19:28 Temperature Temperature Source Pulse Rate 76 Respiratory Rate Respiratory Effort Respiratory Depth Respiratory Pattern Blood Pressure 117/76 Blood Pressure Mean 86 Pulse Ox 96 Oxygen Delivery Method Positive well nourished and well developed General Appearance ED: well developed and NAD HEENT Reports moist mucous membranes HEENT Narrative: Normal tympanic membranes. No obvious oral pharyngeal or tongue swelling appreciated on my exam. No buccal edema. Eyes PERRL and EOMs intact bilaterally Eyes Narrative: Mild redness and puffiness around the eyes and some conjunctival injection present Neck supple and no JVD Neck Narrative: No stridor Chest Wall inspection of chest normal and palpation of chest normal Resp normal respiratory effort and clear to auscultation bilaterally Auscultation: Negative for rhonchi or wheezes Cardio regular rate, regular rhythm and no murmurs GI normal to inspection, nondistended, normoactive bowel sounds, non-tender and non-distended Extremity normal to inspection General Extremety ED: Negative for edema or tenderness General Extremity: Negative for edema Neuro oriented x3 Sensorium / Orientation: alert Motor Exam: Negative for general weakness Psych mental status grossly normal Mood & Affect: anxious Skin Skin Narrative: Scattered urticaria on the trunk as well as the extremities. Patient has pinpoint puncture wound on the top of the left ankle which is consistent with a bee sting, no retained stinger is appreciated MDM MDM MDM Narrative Medical decision making narrative: Patient is evaluated for allergic reaction after bee sting. Upon arrival he is hypotensive however blood pressure improved when he is brought back to the room. He does have hives. Given his hypotension decision was made to give him epinephrine in addition to IV Pepcid and Solu-Medrol. He is also given IV fluids with no further hypotension. Patient took 50 mg of oral Benadryl prior to arrival. Then an hour later patient started to feel that his tongue is swelling. I do not appreciate any significant angioedema at this time however his hives do appear mildly worse and will be given an additional dose of IM epinephrine. He is evaluated for additional 2 hours. He has improvement of symptoms. Will be discharged home with strict return precautions. He has an epinephrine pen at home. Is placed on a short burst of steroids as well as Pepcid and as needed Benadryl. Is given return precautions. Discharged home in stable and improved condition. Discharge Plan Triage Chief Complaint: Allergic Reaction ED Provider: Desiree Stubbs Dx/Rx/DC Orders Clinical Impression: Urticaria, Anaphylactic reaction to bee sting Prescriptions: New prednisone 20 mg tablet 40 mg PO DAILY Qty: 8 0RF famotidine [Pepcid] 20 mg tablet 20 mg PO DAILY Qty: 7 0RF Rx Instructions: for allergic reaction No Action trazodone 100 mg tablet 100 mg PO QHS Patient Comments: Take 1 tablet by mouth daily at bedtime for 14 days. esomeprazole magnesium 40 mg capsule,delayed release(DR/EC) 40 mg PO DAILY ropinirole 0.5 mg tablet 0.5 mg PO .COMPLEX Rx Instructions: 0.5 mg orally; Take one tablet in an evening for 2 weeks then go to two in the evening. gabapentin 100 mg capsule 200 mg PO DAILY Patient Comments: TAKE 1 CAPSULE in the evening for one week then TAKE 2 CAPSULES DAILY FOR 1 WEEK, then TAKE 3 CAPSULES DAILY fluticasone propionate 50 mcg/actuation spray,suspension 2 spray intranasal DAILY PRN Patient Comments: Use 2 Sprays in each nostril once daily. Rinse mouth after use. epinephrine 0.3 mg/0.3 mL auto-injector 0.3 ml subcut ONCE PRN Patient Comments: Inject 0.3 mL intramuscularly as needed. metformin 1,000 mg tablet 1,000 mg PO BIDCM carvedilol 25 mg tablet 25 mg PO BID Qty: 180 3RF Rx Instructions: must administer with a meal/food losartan 100 mg tablet 100 mg PO DAILY Qty: 90 3RF amlodipine 10 mg tablet 10 mg PO DAILY Qty: 90 3RF Stand Alone Forms: ED Work / School Excuse Primary Care Provider: Cruz Damon Referrals: Cruz Damon MD [Primary Care Provider] - Activity Restrictions/Additional Instructions: Please take 2 [id number] Benadryl capsules every 6 hours as needed for itching and allergic symptoms. If you have recurrence of your facial swelling/mouth swelling please use your EpiPen and then call 911. Disposition Disposition: Home, Self Care Discharge Date/Time: 06/02/23 19:53
[2023-06-02] MEDS: Epi Pen (EQUIV) 0.3 MG Syringe IM ×2 (15:24→16:26)
[2023-06-02] MEDS: Famotidine 200 MG/20 ML MDV 20 MG in 0.9% Normal Saline (Pres. free 8 ML 300 MG IV (15:26)
[2023-06-02] MEDS: 0.9% Normal Saline 1,000 ML 999 ML IV (15:26)
[2023-06-02] MEDS: MethylPREDNISolone 125 MG/2 ML Vial IV (15:26)
[2023-06-02] MEDS: Ondansetron 4 MG/2 ML Vial IV (16:09)
[2023-06-02] MEDS: DiphenhydrAMINE 50 MG/ML Syringe 25 MG IV (16:41)
== END 2023-06-02 19:53 | disposition home or self-care (01) ==
PROVIDERS: Emergency Provider Emergency Medicine; PCP Family Medicine; Visit Provider Emergency Medicine
DX: T63.441A Toxic effect of venom of bees, accidental (unintentional), initial encounter (principal); E11.9 Type 2 diabetes mellitus without complications; I95.9 Hypotension, unspecified; L50.9 Urticaria, unspecified; I10 Essential (primary) hypertension; E78.5 Hyperlipidemia, unspecified; N40.0 Benign prostatic hyperplasia without lower urinary tract symptoms; Z79.84 Long term (current) use of oral hypoglycemic drugs; Z79.899 Other long term (current) drug therapy; Z87.891 Personal history of nicotine dependence
CPT/HCPCS: 96361; 96372; 96374; 96375; 99283; J7030; A4216; J2405; J3490

== ENCOUNTER 2023-06-20 11:40 | Emergency (ER) | payer OTHER, SELFPAY ==
[2023-06-20 11:41] VITALS: BP 141/88; PULSE 84; RESP 17; TEMP 37; O2SAT 96; BMI 29.3
--- NOTE | 2023-06-20 11:51 | EX.ED.DYSGE1 ---
HPI History of Present Illness Chief Complaint: Allergic Reaction Detail of Chief Complaint: Bit by insect Informant: patient Onset/Context/Timing Onset: Hours (5 to 10 minutes prior to arrival) Context: Sudden Onset Timing: Continuous Quality: Pruritic area that is raised near the base of the occiput Location: Occiput Current Severity: Mild Maximum Severity: Mild Worsened by: Insect Relieved by: Nothing Associated Symptoms Associated Symptoms: Presently no others Narrative Narrative: Patient is a 4-year-old male with history of paroxysmal supraventricular tachycardia, essential hypertension, dyslipidemia and type 2 diabetes. Patient has had anaphylactic reaction to hymenoptera envenomation in the past. He is uncertain what he may have been stung/bit by. He presents because he was close to the hospital and has itching and swelling of the area. He denies systemic symptoms i.e. swelling of lips tongue or throat. He denies shortness of breath. [place] chest discomfort. Denies orthostatic symptoms. He denies nausea, vomiting or diarrhea. Patient was not carrying his EpiPen. Prior similar symptoms: Yes Recent Illness/Hospitalization: No PFSH PFSH Medical History Anxiety Back problem BPH (benign prostatic hyperplasia) COVID-19 virus detected (07/06/21) Depression Dyslipidemia Essential hypertension GERD (gastroesophageal reflux disease) Paroxysmal supraventricular tachycardia Superficial spreading malignant melanoma of skin Type 2 diabetes mellitus Home Medications metformin 1,000 mg tablet 1,000 mg PO BIDCM 10/21/21 [History Last Taken Unknown] epinephrine 0.3 mg/0.3 mL injection, auto-injector 0.3 ml subcut ONCE PRN anaphylaxis 10/20/22 [History Last Taken Unknown] esomeprazole magnesium 40 mg capsule,delayed release 40 mg PO DAILY 10/20/22 [History Last Taken Unknown] fluticasone propionate 50 mcg/actuation nasal spray,suspension 2 spray intranasal DAILY PRN nasal congestion 10/20/22 [History Last Taken Unknown] gabapentin 100 mg capsule 200 mg PO DAILY 10/20/22 [History Last Taken Unknown] ropinirole 0.5 mg tablet 0.5 mg PO .COMPLEX 10/20/22 [History Last Taken Unknown] trazodone 100 mg tablet 100 mg PO QHS 10/20/22 [History Last Taken Unknown] carvedilol 25 mg tablet 25 mg PO BID #180 tabs 03/29/23 [Rx Last Taken Unknown] losartan 100 mg tablet 100 mg PO DAILY #90 tabs 03/29/23 [Rx Last Taken Unknown] amlodipine 10 mg tablet 10 mg PO DAILY #90 tabs 05/26/23 [Rx Last Taken Unknown] famotidine 20 mg tablet (Pepcid) 20 mg PO DAILY #7 tabs 06/02/23 [Rx Last Taken Unknown] prednisone 20 mg tablet 40 mg (2 x 20 mg) PO DAILY #8 tabs 06/02/23 [Rx Last Taken Unknown] Allergy/AdvReac Type Severity Reaction Status Date / Time tramadol Allergy Mild rash Verified 06/20/23 11:40 amitriptyline Allergy Hives Verified 06/20/23 11:40 bee venom protein (honey bee) Allergy Anaphylaxis Verified 06/20/23 11:40 Family History Mother Cancer lung Father Alzheimer disease Surgical History History of colonoscopy History of prostatectomy History of radiofrequency ablation procedure for cardiac arrhythmia (2013) History of repair of left rotator cuff History of tonsillectomy Social History Smoking Status: Former smoker how long ago did patient quit smokin years ago alcohol intake: current alcohol intake frequency: holidays/special occasions only substance use type: does not use caffeine: Yes Type: coffee ROS ROS ED Constitutional Constitutional ED: Denies chills or fever(s) Eyes Eyes: Denies blurry vision or change in vision ENT ENT ED: Denies rhinorrhea or sore throat Cardiovascular Cardiovascular: Denies chest pain or palpitations Respiratory/Chest Respiratory/Chest: Denies dyspnea or dyspnea on exertion Gastrointestinal Gastrointestinal: Denies diarrhea, nausea or vomiting Musculoskeletal Musculoskeletal: Denies arthralgias or myalgias Integumentary Reports rash Neurologic Neurologic: Denies paresthesias Hematologic/Lymphatic Hematologic/Lymphatic: Reports systems reviewed and no addt'l complaints, except as documented Allergic/Immunologic Allergic/Immunologic ED: Denies mouth swelling, tongue swelling or urticaria EXAM Physical Exam Const Vital Signs: 06/20/23 11:41 Temperature 98.6 F Temperature Source Temporal Pulse Rate 84 Respiratory Rate 17 Blood Pressure 141/88 H Blood Pressure Mean 105 Pulse Ox 96 Oxygen Delivery Method Room Air Positive well nourished and well developed General Appearance ED: well developed and NAD; Negative for cyanotic, diaphoretic or pallor HEENT Reports moist mucous membranes HEENT Narrative: Head is atraumatic normocephalic. Patient does have a raised area with erythema where he was stung. There is no evidence of angioedema. Eyes PERRL and EOMs intact bilaterally General Eye ED: Negative for pale conjunctiva or scleral icterus Neck no lymphadenopathy, supple and no JVD Neck Narrative: Trachea is midline. There is no in-store expiratory stridor. There is no dysphonia. Chest Wall inspection of chest normal and palpation of chest normal Resp normal respiratory effort and clear to auscultation bilaterally Cardio regular rate, regular rhythm, S1 normal heart sound, S2 normal heart sound and no murmurs GI normal to inspection, nondistended, normoactive bowel sounds, non-tender, non-distended and no masses; Negative for hepatosplenomegaly Back/Spine Back/Spine Narrative: Inspection is normal. Extremity normal to inspection General Extremety ED: Negative for edema or tenderness General Extremity: Negative for edema Neuro oriented x3, CN's II-XII intact bilaterally and no sensory deficits noted Sensorium / Orientation: alert Psych mental status grossly normal Skin no wounds and skin turgor normal Skin Narrative: There are no hives. General Skin Exam: Negative for jaundice or pallor MDM MDM MDM Narrative Medical decision making narrative: Patient was placed on the monitor. IV was established. We will treat with H1 H2 estelita and systemic steroids. Since patient only has a raised area of 2 to 3 cm in diameter and no other findings and no systemic symptoms will not at this time treat with epinephrine. Treatment and Re-Evaluation :: Was reevaluated at 1230. Patient has no systemic symptoms. His itching is improved. Will discharge to home. Discharge Plan Triage Chief Complaint: Allergic Reaction ED Provider: Eloy Graham Dx/Rx/DC Orders Clinical Impression: Allergic reaction to insect sting, Essential hypertension, Type 2 diabetes mellitus, Dyslipidemia Instructions: Allergy Medicines: Nrif-kko-Rqqgste Prescriptions: No Action trazodone 100 mg tablet 100 mg PO QHS Patient Comments: Take 1 tablet by mouth daily at bedtime for 14 days. esomeprazole magnesium 40 mg capsule,delayed release(DR/EC) 40 mg PO DAILY ropinirole 0.5 mg tablet 0.5 mg PO .COMPLEX Rx Instructions: 0.5 mg orally; Take one tablet in an evening for 2 weeks then go to two in the evening. gabapentin 100 mg capsule 200 mg PO DAILY Patient Comments: TAKE 1 CAPSULE in the evening for one week then TAKE 2 CAPSULES DAILY FOR 1 WEEK, then TAKE 3 CAPSULES DAILY fluticasone propionate 50 mcg/actuation spray,suspension 2 spray intranasal DAILY PRN (Reason: nasal congestion) Patient Comments: Use 2 Sprays in each nostril once daily. Rinse mouth after use. epinephrine 0.3 mg/0.3 mL auto-injector 0.3 ml subcut ONCE PRN (Reason: anaphylaxis) Patient Comments: Inject 0.3 mL intramuscularly as needed. metformin 1,000 mg tablet 1,000 mg PO BIDCM prednisone 20 mg tablet 40 mg PO DAILY Qty: 8 0RF famotidine [Pepcid] 20 mg tablet 20 mg PO DAILY Qty: 7 0RF Rx Instructions: for allergic reaction carvedilol 25 mg tablet 25 mg PO BID Qty: 180 3RF Rx Instructions: must administer with a meal/food losartan 100 mg tablet 100 mg PO DAILY Qty: 90 3RF amlodipine 10 mg tablet 10 mg PO DAILY Qty: 90 3RF Primary Care Provider: Cruz Damon Referrals: Cruz Damon MD [Primary Care Provider] - As Needed Activity Restrictions/Additional Instructions: You should carry your EpiPen with you at all times. Disposition Disposition: Home, Self Care
[2023-06-20] MEDS: MethylPREDNISolone 125 MG/2 ML Vial IV (11:53)
[2023-06-20] MEDS: DiphenhydrAMINE 50 MG/ML Syringe 25 MG IV (11:53)
[2023-06-20] MEDS: Famotidine 200 MG/20 ML MDV 20 MG in 0.9% Normal Saline (Pres. free 8 ML 300 MG IV (12:04)
[2023-06-20 12:34] VITALS: BP 144/82; PULSE 81; RESP 18; O2SAT 98
== END 2023-06-20 12:36 | disposition home or self-care (01) ==
PROVIDERS: Emergency Provider Emergency Medicine; PCP Family Medicine; Visit Provider Emergency Medicine
DX: L29.9 Pruritus, unspecified (principal); E11.9 Type 2 diabetes mellitus without complications; L53.9 Erythematous condition, unspecified; T63.441A Toxic effect of venom of bees, accidental (unintentional), initial encounter; I10 Essential (primary) hypertension; Z87.891 Personal history of nicotine dependence; E78.5 Hyperlipidemia, unspecified
CPT/HCPCS: 96374; 96375; 99282; J7030; A4216; J3490

== ENCOUNTER → 2024-10-15 | Outpatient (CLI) | payer OTHER, SELFPAY ==
--- NOTE | 2024-10-15 08:28 | US_ITS ---
STUDY: ABDOMINAL ULTRASOUND - RIGHT UPPER QUADRANT; ELASTOGRAPHY REASON FOR VISIT: Male, 69 years old. Steatosis. Right upper quadrant pain. TECHNIQUE: Ultrasound evaluation of the right upper quadrant was performed with real-time and static almanza-scale imaging. Point quantification shear wave elastography was performed ([facility]). TECHNICAL QUALITY: Adequate. COMPARISON: None. FINDINGS: Liver: The liver measures 17.7 cm. There is increased echogenicity consistent with fatty infiltration. The bile ducts are within normal limits. There is hepatic color flow. The direction of portal flow is hepatopetal. There is a 2.7 cm x 1.9 cm x 1.8 cm cyst in the mid inferior aspect of the right lobe. There is also evidence of a 11 cm x 9.97 x 11 cm cyst in the inferior aspect of the right lobe of the liver. Median liver stiffness measured 8.7 kPa. Gallbladder: Normal distended gallbladder. The gallbladder wall measures 3 mm. There is a negative sonographic Mahoney''s sign. There is no pericholecystic fluid. There are no gallstones. Sludge is seen in the gallbladder lumen. Common Bile Duct (C.B.D.): The common bile duct measures 3.1 mm. Pancreas: There is normal echogenicity of the visualized pancreas. There is no demonstrated pancreatic mass or cyst. Right Kidney: Normal size of the right kidney. The right kidney measures 10.1 sono by 5.6 cm x 4.7 cm. Normal renal cortex. The right cortex measures 1.1 cm. There is a 2.3 cm x 2.7 x 2 cm cyst in the upper pole of the right kidney. There is no right hydronephrosis. US/ABD Limited w/ Elastography IMPRESSION: 1. Liver stiffness measures 8.7 kPa compatible with F2-F3 (Mild to moderate liver fibrosis) Metavir score. 2. Sludge is seen in the gallbladder lumen. 3. Cysts in the right lobe of liver. 4. Right renal cyst. Electronically Signed: Murphy Fan MD at 15:23 EST ,
== END | disposition home or self-care (01) ==
PROVIDERS: PCP Family Medicine; Referring Provider Nurse Practitioner Acute Care; Visit Provider Nurse Practitioner Acute Care
DX: R10.11 Right upper quadrant pain (principal); R19.4 Change in bowel habit; K76.89 Other specified diseases of liver; K76.0 Fatty (change of) liver, not elsewhere classified
CPT/HCPCS: 76705; 76981

== ENCOUNTER → 2024-11-13 | Outpatient (CLI) | payer OTHER, SELFPAY ==
--- NOTE | 2024-11-13 15:19 | MRI_ITS ---
MRI Abdomen w/ and w/out contrast 11/13/2024 3:39 PM COMPARISON: 10/15/2024 CLINICAL HISTORY: significantly larger liver cyst -- Attn LIVER, COMPARE TO ULTRASOUNDS TECHNIQUE: Multiplanar T1 and T2 weighted, diffusion and dynamic post-gadolinium images were obtained through the abdomen before and after administration of 17 cc of IV Clariscan.. FINDINGS: Liver: Multiple simple cysts throughout the liver, largest measuring 2.3 cm. Slightly nodular liver contour. Gallbladder: Unremarkable Pancreas: Unremarkable Spleen: Unremarkable Adrenal Glands: Unremarkable Kidneys: Multiple simple cysts throughout both kidneys, largest measuring 11.8 x 10.6 x 11 cm in the right upper renal pole. No evidence of signal dropout on T1 opposed phase images compared to T1 in phase images. No evidence of signal drop on fat saturation sequence. No significant enhancement. GI Tract: 2.8 x 2.9 x 2.8 cm round T1 and 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 No evidence of signal dropout on T1 opposed phase images compared to T1 in phase images. No evidence of signal drop on fat saturation sequence. It demonstrates heterogeneous gradual enhancement. Lymphadenopathy: Absent Ascites: Absent Bones: No suspicious lesions MRI/MRI Abd WITH and W/O Contrast IMPRESSION: 3 cm round enhancing intraluminal mass in the antrum of the stomach is concerning for malignancy. Recommend endoscopy. Simple nonenhancing 12 cm cyst in the right upper renal pole. Multiple nonenhancing simple cysts throughout the liver, largest measuring 2.3 cm. Slightly nodular liver contour could represent early cirrhosis. Electronically Signed: Reuben Lopez MD at 8:11 EST ,
== END | disposition home or self-care (01) ==
LOC: MRI 15:11
PROVIDERS: PCP Family Medicine; Referring Provider Nurse Practitioner Acute Care; Visit Provider Nurse Practitioner Acute Care
DX: R10.11 Right upper quadrant pain (principal); K76.89 Other specified diseases of liver

== ENCOUNTER 2024-11-20 12:31 | Day surgery (SDC) | payer OTHER, SELFPAY ==
--- NOTE | 2024-11-15 11:51 | PAT.ANESEVAL ---
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 When Was Last Pacemaker Check QUESTION #4 FULL TEXT: You/Your Family Experience fever (hyperthermia) with Anesthesia Last Oral Intake Last Oral intake: Last Oral Intake NPO since Meds taken in AM with sips of water? 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 Has anyone observed you stop No 11/15/24 10:33 breathing during sleep? STOP Results Positive 11/15/24 10:33 QUESTION #5 FULL TEXT : Do you snore loudly (louder than talking or can be heard through closed doors)? 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 Specify any problems Hx of Preganancy in last 3 N/A 11/15/24 10:33 Months Nurse Filling Out Transfusion [email or web address] 11/15/24 10:33 & Questions: Date: 11/15/24 11/15/24 10:33 Time: 10:36 11/15/24 10:33 Patient unable to answer at this time (ie. 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 Hx Now Gestational Age (in weeks): EDC: Hx Hx Para Hx Section SAB [facility] Medical History (Updated 11/15/24 @ 10:40 by Jun Newman) Wears glasses Cardiology follow-up encounter Anxiety COVID-19 virus detected (07/06/21) Dyslipidemia Paroxysmal supraventricular tachycardia Type 2 diabetes mellitus Essential hypertension Superficial spreading malignant melanoma of skin Depression BPH (benign prostatic hyperplasia) Back problem GERD (gastroesophageal reflux disease) Home Medications ?Medication ?Instructions ?Recorded ?Last Taken ?Type metformin 1,000 mg tablet 1,000 mg PO BIDCM 10/21/21 Unknown History epinephrine 0.3 mg/0.3 mL 0.3 ml subcut ONCE PRN anaphylaxis 10/20/22 Unknown History injection, auto-injector fluticasone propionate 50 2 spray intranasal DAILY PRN nasal 10/20/22 Unknown History mcg/actuation nasal congestion spray,suspension amlodipine 10 mg tablet 10 mg PO DAILY #90 tabs 09/06/24 Unknown Rx carvedilol 25 mg tablet 25 mg PO BID #180 tabs 09/06/24 Unknown Rx losartan 100 mg tablet 100 mg PO DAILY #90 tabs 09/06/24 Unknown Rx atorvastatin 10 mg tablet (Lipitor) 10 mg PO QHS 09/24/24 Unknown History baclofen 10 mg tablet 10 mg PO QHS PRN pain 09/24/24 Unknown History esomeprazole magnesium 40 mg 40 mg PO DAILY #90 caps 09/24/24 Unknown Rx capsule,delayed release trazodone 100 mg tablet 50 mg PO QHS 09/24/24 Unknown History dicyclomine 10 mg capsule 10 mg PO QHS 11/15/24 Unknown History semaglutide 0.25 mg or 0.5 mg (2 0.5 mg subcut TU 11/15/24 11/13/24 History mg/3 mL) subcutaneous pen injector (Ozempic) Allergy/AdvReac Type Severity Reaction Status Date / Time tramadol Allergy Mild rash Verified 11/15/24 10:27 amitriptyline Allergy Hives Verified 11/15/24 10:27 bee venom protein (honey bee) Allergy Anaphylaxis Verified 11/15/24 10:27 Family History (Updated 09/25/24 @ 07:55 by Julissa Rodriguez) Mother Cancer lung Father Alzheimer disease Son Ulcerative colitis Surgical History History of radiofrequency ablation procedure for cardiac arrhythmia (2013) History of colonoscopy History of prostatectomy History of tonsillectomy History of repair of left rotator cuff Social History Smoking Status: Former smoker how long ago did patient quit smokin years ago alcohol intake: current alcohol intake frequency: holidays/special occasions only substance use type: does not use caffeine: Yes Type: coffee Audit: Pertinent Findings Pertinent Findings EKG Perinent findings: 10/21/2021 sinus rhythm within normal limits Echo (EF%) pertinent findings: 11/04/2021 ejection fraction 60% structurally normal valves pulmonary artery pressure 28 Consult pertinent findings: Cardiology 10/20/2022 hypertension chronic stable paroxysmal supraventricular tachycardia chronic stable status post AV frankie ablation has had not any recurrence Recommendation Anesthesia Recommendation Anesthesia recommendation: OPTIMIZED for anesthesia
[2024-11-20] VITALS (8 sets, daily range): BP systolic 101–152; BP diastolic 67–80; PULSE 60–74; RESP 16; TEMP 36.2–36.6; O2SAT 93–100; BMI 26.9
[2024-11-20 13:12] LABS: Bedside Glucose 105 mg/dL (74-106)
--- NOTE | 2024-11-20 13:30 | EGD_PTH ---
PATIENT: FABIO ROSE LOC: [facility] U#:[id number] AGE/SX: 69/M ROOM: RE11/20/[address]: Dr. Dany Abdi DO : 1955 BED: DIS: 11/20/2024 SPEC #: [id number] RECD: 11/20/24 15:12 STATUS: JOHANA BHUPINDER #: [id number] BERNARD: 11/20/24 13:[address]: Dany Abdi DEPT: SURGICAL PATHOLOGY RECD BY: Mildred Segovia ENTERED: 11/21/24 08:45 SP TYPE: EGD BIOPSY JOSEPHINE DR: Dr. Cruz Damon MD Tissues: Esophagus, NOS Procedures: Special Stain Group I Surgery Specimen Level IV Alcian Blue/PAS (control) HEADER OPERATION: EGD with biopsy PRE-OP DIAGNOSIS: Right upper quadrant pain, liver cyst, steatosis of liver, altered bowel habits, GERD, Matthew's esophagus TISSUE SUBMITTED: Distal esophagus biopsy MICROSCOPIC DIAGNOSIS Distal esophagus, biopsy: Fragments of gastroesophageal mucosa with chronic inflammation. Intestinal metaplasia (goblet cell metaplasia) not identified. See comment. 11/22/2024 COMMENT Alcian blue/PAS stain with matched control is used in the evaluation of the specimen. MICROSCOPIC DESCRIPTION Slides are reviewed. GROSS DESCRIPTION Received in fixative is one container labeled with the patient's name and designated Distal esophagus biopsy. The specimen consists of multiple irregular fragments of light castillo soft tissue that in aggregate measure 1.2 x 0.3 x 0.2 cm. The specimen is totally submitted in one cassette. 11/21/2024 TC:3 CPT:86575,35848
--- NOTE | 2024-11-20 13:30 | PCM.HP.STD ---
HPI - General General Date of Admission: 11/20/24 Date of Service: 11/20/24 Chief Complaint: Abdominal plain and Matthew's esophagus HPI Narrative 68y/o male presents for c/o right sided abdominal pain. COLON: 06/01/2022 diverticulosis - recall 10 years EGD: 06/01/2022 short-segment Matthew's w/o dysplasia US: 2020 2 cysts are seen within the liver. The larger within the left lobe posteriorly measures 3.3 x 3.0 x 2.2 cm and demonstrates a thin septation. The smaller is within the inferior right hepatic lobe and measures 2.5 x 2.4 x 1.8 cm. - denies any family h/o colon or esophageal cancer - son with UC - personal h/o prostatectomy - s/p cardiac ablation - does not take any anticoagulants - bowel habits are unpredictable - right sided abdominal discomfort - reports a significant improvement with dicyclomine - HB well controlled with Nexium 40mg daily - he can have 2-3 BM a day that are small, diarrhea or constipation - alternating bowels have been an issue for many years - was using Dicyclomine in the past - states this has helped with bowels and RUQ discomfort in the past - RUQ discomfort has been present for many years - radiates through to his back at times - denies any N/V - denies any weight loss - denies any change with PO intake - 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 8pm in the evening making it hard to eat a balanced diet - reports walking can help alleviate RUQ discomfort - denies any alcohol - he is a non-smoker - Tylenol as needed - denies use of any NSAIDS - coffee daily B: skips L: often skips D: changes, not balanced RECALL EGD MAY 2025, COLONOSCOPY MAY 2032 PENDING SALE TO [facility] Medical History Wears glasses Cardiology follow-up encounter Anxiety COVID-19 virus detected (07/06/21) Dyslipidemia Paroxysmal supraventricular tachycardia Type 2 diabetes mellitus Essential hypertension Superficial spreading malignant melanoma of skin Depression BPH (benign prostatic hyperplasia) Back problem GERD (gastroesophageal reflux disease) Home Medications ?Medication ?Instructions ?Recorded ?Last Taken ?Type metformin 1,000 mg tablet 1,000 mg PO BIDCM 10/21/21 Unknown History epinephrine 0.3 mg/0.3 mL 0.3 ml subcut ONCE PRN anaphylaxis 10/20/22 Unknown History injection, auto-injector fluticasone propionate 50 2 spray intranasal DAILY PRN nasal 10/20/22 Unknown History mcg/actuation nasal congestion spray,suspension amlodipine 10 mg tablet 10 mg PO DAILY #90 tabs 09/06/24 11/20/24 08:00 Rx carvedilol 25 mg tablet 25 mg PO BID #180 tabs 09/06/24 11/20/24 08:00 Rx losartan 100 mg tablet 100 mg PO DAILY #90 tabs 09/06/24 11/20/24 08:00 Rx atorvastatin 10 mg tablet (Lipitor) 10 mg PO QHS 09/24/24 Unknown History baclofen 10 mg tablet 10 mg PO QHS PRN pain 09/24/24 Unknown History esomeprazole magnesium 40 mg 40 mg PO DAILY #90 caps 09/24/24 11/20/24 08:00 Rx capsule,delayed release trazodone 100 mg tablet 50 mg PO QHS 09/24/24 Unknown History dicyclomine 10 mg capsule 10 mg PO QHS 11/15/24 Unknown History semaglutide 0.25 mg or 0.5 mg (2 0.5 mg subcut TU 11/15/24 11/13/24 History mg/3 mL) subcutaneous pen injector (Ozempic) Allergy/AdvReac Type Severity Reaction Status Date / Time tramadol Allergy Mild rash Verified 11/20/24 12:51 amitriptyline Allergy Hives Verified 11/20/24 12:51 bee venom protein (honey bee) Allergy Anaphylaxis Verified 11/20/24 12:51 Family History Mother Cancer lung Father Alzheimer disease Son Ulcerative colitis Surgical History History of radiofrequency ablation procedure for cardiac arrhythmia (2013) History of colonoscopy History of prostatectomy History of tonsillectomy History of repair of left rotator cuff Social History Smoking Status: Former smoker how long ago did patient quit smokin years ago alcohol intake: current alcohol intake frequency: holidays/special occasions only substance use type: does not use caffeine: Yes Type: coffee ROS Constitutional Constitutional: Denies fatigue, fever(s), poor appetite, weight gain or weight loss Gastrointestinal Gastrointestinal: Denies belching, bloating, change in bowel habits, change in stool character, chewing difficulty, coffee ground emesis, constipation, cramping, diarrhea, dyspepsia, dysphagia, early satiety, excessive flatus, fecal incontinence, heartburn, hematemesis, hematochezia, hemorrhoids, loose stools, melena, nausea, odynophagia, rectal bleeding, tenesmus, vomiting or weight changes Vital Signs Vital Signs Vital Signs: 11/20/24 12:55 11/20/24 12:55 Temperature 97.2 F L Temperature Source Temporal Pulse Rate 60 Respiratory Rate 16 Respiratory Pattern Normal Blood Pressure 152/80 H Blood Pressure Mean 104 Blood Pressure Source Monitor Blood Pressure Position Semi-Fowlers Blood Pressure Location Left Arm Pulse Ox 100 Oxygen Delivery Method Room Air Weight Weight: 187 lb 13.341 oz Body Mass Index (BMI) 26.9 Physical Exam Const alert, oriented x3, no apparent distress and healthy appearing General Appearance: cooperative GI normal to inspection, nondistended, normoactive bowel sounds, soft to palpation, non-tender and non-distended Percussion: normal to percussion Rectal Exam: deferred Results Lab / Micro Data Labs: Laboratory Results - last 24 hr 11/20/24 12:52: POC Glucose 105 Assessment & Plan Assessment/Plan (1) Altered bowel habits: (2) RUQ pain: PLAN: Plan Assessment and Plan (1) RUQ pain: Status: Acute (2) Liver cyst: Status: Acute (3) Steatosis of liver: Status: Acute (4) Altered bowel habits: Status: Acute (5) GERD (gastroesophageal reflux disease): Qualifiers: Esophagitis presence: without esophagitis Qualified Code(s): K21.9 - Gastro-esophageal reflux disease without esophagitis (6) Barretts esophagus: Qualifiers: Matthew's esophagus type: without dysplasia Qualified Code(s): K22.70 - 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 Orders: Orders ABD Limited w/ Elastography Today K76.0 - Fatty (change of) liver, not elsewhere classified, K76.89 - Other specified diseases of liver, R10.11 - Right upper quadrant pain, R19.4 - Change in bowel habit Medications: New dicyclomine 10 mg PO BID 180 caps 1RF esomeprazole magnesium 40 mg PO DAILY 90 caps 3RF Plan 68y/o male presents for c/o right sided abdominal pain. His PMH is significant for HTN, short segment Matthew's (esomeprazole), GERD, liver cyst, diverticulosis. Family history is significant for son with UC. Pain is dull, intermittent, non-radiating and has been present for many years. He is unable to associate a trigger for pain but does note improvement with ambulation and dicyclomine. He reports a long history of alternating bowel habits and we have reviewed his dietary habits with lack of fiber are likely a main contributor. I have recommended a balanced diet with the addition of Fibercon tablets daily. ABD US completed in 2020 revealed a complex liver cyst and coarsened echotexture of the liver. He will schedule ABD US with Elastography and follow-up in three months. Patient Instructions: 1. Encouraged balanced diet with increased fiber intake 2. Start 2 Fibercon tablets daily every morning with at leats 8 ounces of water 3. Continue Esomeprazole indefinitely (Matthew's) 4. ABD US to f/u 2020 complex liver cyst 5. Elastography to f/u coarsened liver noted on 2020 US 6. Continue dicyclomine as needed; we have reviewed risks assoc. with antispasmodic medications 7. RECALL EGD MAY 2025 (Matthew's), RECALL COLONOSCOPY MAY 2032 8. Follow-up 3 months Plan Details
--- NOTE | 2024-11-20 13:38 | PRE.ANES_ITS ---
ASA Classification* ASA Classification ASA Classification: 2 Assessment & Plan Anesthesia* Anesthesia Assessment Anesthesia Assessment: Discussed sedation and/or anesthesia options, risks, benefits, and alternatives with patient/parents/legal guardian/POA. Questions invited. The patient/parents/legal guardian/POA seems to understand and agrees to proceed with anesthesia plan. Reviewed the physical assessment, medical history, allergy history and patient home medications list prior to surgery/procedure/anesthetic and documented any changes. Performed airway and anesthesia risk assessments. Anesthesia Type Anesthesia Type: MAC History Source History Obtained from:: Patient and Chart Anesthesia Focused Assessment* Temperature: 97.2 F Pulse Rate: 60 Blood Pressure: 152/80 Respiratory Rate: 16 Pulse Ox: 100 Oxygen Delivery Method: Room Air Airway Assessment Mouth opens: 2 cm Mallampati Score: III Teeth Condition: Intact Neck Range of motion (ROM): Full ROM Focused Labs Anesthesia Preop lab: CBC WBC 8.4 K/mm3 (4.4-11.0) 12/15/18 04:10 RBC 4.13 M/mm3 (4.6-6.2) L 12/15/18 04:10 Hgb 12.0 g/dl (13.0-16.5) L 12/15/18 04:10 Hct 35.5 % (40-54) L 12/15/18 04:10 Plt Count 259 K/mm3 (150-450) 12/15/18 04:10 CHEMISTRY Potassium 3.7 mmol/L (3.5-5.1) 12/15/18 04:10 Sodium 139 mmol/L (136-145) 12/15/18 04:10 BUN 28 mg/dL (7-18) H 12/15/18 04:10 Creatinine 1.83 mg/dL (0.70-1.30) H 12/15/18 04:10 Glucose 179 mg/dL (74-106) H 12/15/18 04:10 POC Glucose 105 mg/dL (74-106) 11/20/24 12:52 COAG PT 13.4 SECONDS (11.7-14.9) 12/15/18 04:10 Pre-Assessment Diagnosis/Proposed Procedure Planned Operative Procedure(s): EGD Anesthesia History 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 When Was Last Pacemaker Check QUESTION #4 FULL TEXT: You/Your Family Experience fever (hyperthermia) with Anesthesia Last Oral Intake Last Oral intake: Last Oral Intake NPO since 08:00 11/20/24 12:55 Meds taken in AM with sips of Yes 11/20/24 12:55 water? 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 Female No 11/15/24 10:33 HX of Motion Sickness No 11/15/24 10:33 HX of N/V After Surgery No 11/15/24 10:33 Non-Smoker Yes 11/15/24 10:33 Duration of Surgery greater No 11/15/24 10:33 than 60 minutes Number of Risk Factors 1 11/15/24 10:33 PONV Score Low Risk 11/15/24 10:33 Height & Weight Height & Weight: Anesthesia: Height & Weight Height 5 ft 10 in 11/20/24 12:55 Weight: 85.2 kg 11/20/24 12:55 Body Mass Index (BMI) 26.9 11/20/24 12:55 Respiratory Assessment Respiratory Assessment - butcher all round: Respiratory Tract Infection Hx - butcher all round Hx Respiratory Tract Infection No 11/15/24 10:33 STOP Sleep Apnea STOP Sleep Apnea - butcher all round: STOP Sleep Apnea - butcher all round Hx Hypertension Yes: CONTROLLED WITH MEDS 11/15/24 10:33 Hx Sleep Apnea No 11/15/24 10:33 CPAP BIPAP Do you snore loudly (louder Yes 11/15/24 10:33 than talking or can be heard Do you often feel tired/ No 11/15/24 10:33 fatigued/ sleepy during daytime? Has anyone observed you stop No 11/15/24 10:33 breathing during sleep? STOP Results Positive 11/15/24 10:33 QUESTION #5 FULL TEXT : Do you snore loudly (louder than talking or can be heard through closed doors)? 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 Specify any problems Hx of Preganancy in last 3 N/A 11/15/24 10:33 Months Nurse Filling Out Transfusion [email or web address] 11/15/24 10:33 & Questions: Date: 11/15/24 11/15/24 10:33 Time: 10:36 11/15/24 10:33 Patient unable to answer at this time (ie. 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 Hx Now Gestational Age (in weeks): EDC: Hx Hx Para Hx Section SAB PFSH Medical History Wears glasses Cardiology follow-up encounter Anxiety COVID-19 virus detected (07/06/21) Dyslipidemia Paroxysmal supraventricular tachycardia Type 2 diabetes mellitus Essential hypertension Superficial spreading malignant melanoma of skin Depression BPH (benign prostatic hyperplasia) Back problem GERD (gastroesophageal reflux disease) Home Medications ?Medication ?Instructions ?Recorded ?Last Taken ?Type metformin 1,000 mg tablet 1,000 mg PO BIDCM 10/21/21 Unknown History epinephrine 0.3 mg/0.3 mL 0.3 ml subcut ONCE PRN anaphylaxis 10/20/22 Unknown History injection, auto-injector fluticasone propionate 50 2 spray intranasal DAILY PRN nasal 10/20/22 Unknown History mcg/actuation nasal congestion spray,suspension amlodipine 10 mg tablet 10 mg PO DAILY #90 tabs 09/06/24 11/20/24 08:00 Rx carvedilol 25 mg tablet 25 mg PO BID #180 tabs 09/06/24 11/20/24 08:00 Rx losartan 100 mg tablet 100 mg PO DAILY #90 tabs 09/06/24 11/20/24 08:00 Rx atorvastatin 10 mg tablet (Lipitor) 10 mg PO QHS 09/24/24 Unknown History baclofen 10 mg tablet 10 mg PO QHS PRN pain 09/24/24 Unknown History esomeprazole magnesium 40 mg 40 mg PO DAILY #90 caps 09/24/24 11/20/24 08:00 Rx capsule,delayed release trazodone 100 mg tablet 50 mg PO QHS 09/24/24 Unknown History dicyclomine 10 mg capsule 10 mg PO QHS 11/15/24 Unknown History semaglutide 0.25 mg or 0.5 mg (2 0.5 mg subcut TU 11/15/24 11/13/24 History mg/3 mL) subcutaneous pen injector (Ozempic) Allergy/AdvReac Type Severity Reaction Status Date / Time tramadol Allergy Mild rash Verified 11/20/24 12:51 amitriptyline Allergy Hives Verified 11/20/24 12:51 bee venom protein (honey bee) Allergy Anaphylaxis Verified 11/20/24 12:51 Family History Mother Cancer lung Father Alzheimer disease Son Ulcerative colitis Surgical History History of radiofrequency ablation procedure for cardiac arrhythmia (2013) History of colonoscopy History of prostatectomy History of tonsillectomy History of repair of left rotator cuff Social History Smoking Status: Former smoker how long ago did patient quit smokin years ago alcohol intake: current alcohol intake frequency: holidays/special occasions only substance use type: does not use caffeine: Yes Type: coffee Review of Systems (Anesthesia) ROS Narrative System reviewed and no additional complaints, except as documented.
--- NOTE | 2024-11-20 14:03 | OP.EGD_ITS ---
Patient Name: Dar Manzano Procedure Date: 11/20/2024 1:35 PM Date of : 1955 Age: 69 Procedure: Upper GI endoscopy Indications: Epigastric abdominal pain, Follow-up of Matthew's esophagus Providers: Dany Abdi DO Referring MD: Cruz Damon MD Medicines: Monitored Anesthesia Care Patient Profile: This is a 69 year old male. Refer to note in patient chart for documentation of history and physical. Patient has symptoms of chronic abdominal distention, chronic epigastric abdominal pain, chronic dyspepsia and chronic nausea. Complications: No immediate complications. Procedure: Pre-Anesthesia Assessment: - Prior to the procedure, a History and Physical was performed, and patient medications and allergies were reviewed. The patient is competent. The risks and benefits of the procedure and the sedation options and risks were discussed with the patient. All questions were answered and informed consent was obtained. Patient identification and proposed procedure were verified by the physician in the pre-procedure area. Mental Status Examination: alert and oriented. Airway Examination: normal oropharyngeal airway and neck mobility. Respiratory Examination: clear to auscultation. CV Examination: normal. Prophylactic Antibiotics: The patient does not require prophylactic antibiotics. Prior Anticoagulants: The patient has taken no anticoagulant or antiplatelet agents except for NSAID medication. ASA Grade Assessment: II - A patient with mild systemic disease. After reviewing the risks and benefits, the patient was deemed in satisfactory condition to undergo the procedure. The anesthesia plan was to use monitored anesthesia care (MAC). Immediately prior to administration of medications, the patient was re-assessed for adequacy to receive sedatives. The heart rate, respiratory rate, oxygen saturations, blood pressure, adequacy of pulmonary ventilation, and response to care were monitored throughout the procedure. The physical status of the patient was re-assessed after the procedure. After obtaining informed consent, the endoscope was passed under direct vision. Throughout the procedure, the patient's blood pressure, pulse, and oxygen saturations were monitored continuously. The Endoscope was introduced through the mouth, and advanced to the second part of duodenum. The upper GI endoscopy was accomplished without difficulty. The patient tolerated the procedure well. Scope In: 1:51:29 PM Scope Out: 1:55:22 PM Total Procedure Duration Time 0 hours 3 minutes 53 seconds Findings: There were esophageal mucosal changes secondary to established short-segment Matthew's disease present in the lower third of the esophagus. The maximum longitudinal extent of these mucosal changes was 2 cm in length. Mucosa was biopsied with a cold forceps for histology in a targeted manner at intervals of 1 cm in the lower third of the esophagus. One specimen bottle was sent to pathology. Verification of patient identification for the specimen was done. Estimated blood loss was minimal. A large, submucosal, non-circumferential mass with no bleeding and no stigmata of recent bleeding was found at the incisura. No gross lesions were noted in the duodenal bulb. Impression: - 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 Biopsied. 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 - No gross lesions in the duodenal bulb. Recommendation: - Discharge patient to home. - Resume previous diet. - Continue present medications. - Await pathology results. - Endoscopic ultrasound with possible fine-needle aspiration Procedure Code(s): --- Professional --- 20784, Esophagogastroduodenoscopy, flexible, transoral; with biopsy, single or multiple CPT copyright 2021 [employer]. All rights reserved. The codes documented in this report are preliminary and upon recycling tech review may be revised to meet current compliance requirements. Dany Abdi DO 11/20/2024 2:03:34 PM This report has been signed electronically. Number of Addenda: 0 Note Initiated On: 11/20/2024 1:35 PM
--- NOTE | 2024-11-20 14:03 | OP.CCLET_ITS ---
11/20/2024 Cruz Damon MD Re : Upper GI endoscopy procedure for Dar Manzano Dear Dr. Damon This procedure was performed on Wednesday, November 20, 2024. My impressions and recommendations are as follows: Impressions : - 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 Biopsied. 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 - No gross lesions in the duodenal bulb. Recommendations : - Discharge patient to home. - Resume previous diet. - Continue present medications. - Await pathology results. - Endoscopic ultrasound with possible fine-needle aspiration My findings are described in the full procedure note, which is enclosed. If I can be of further assistance, please feel free to contact me at . Sincerely, Dany Abdi, 11/20/2024 2:03:34 PM This report has been signed electronically.
--- NOTE | 2024-11-20 14:06 | PCM.POST.ANE ---
Anesthesia: Postop Eval I Current Vital Signs Temperature: 98 F Pulse Rate: 74 Blood Pressure: 101/67 Respiratory Rate: 16 Pulse Ox: 96 Oxygen Delivery Method: Room Air Assessment Airway patent: Yes Spontaneous unlabored respirations: Yes Mental status: Awake and Calm nausea: No Vomiting: No Anesthesia Complication: No Fluid Hydration Crystalloid volume administer (ml): 30 Total IV fluid infused: 30 Progress Note Anesthesia document: Postop Eval 1 completed: Yes
--- NOTE | 2024-11-20 19:42 | PCM.POSTANE2 ---
Anesthesia Postop Eval I Sum Postop Eval Completion status Anesthesia document: Postop Eval 1 completed: Yes Anesthesia Postop Eval I Summary Anesthesia Postop Eval I Summary: Anesthesia Postop Eval I: Assessment Summary Airway patent Yes 11/20/24 14:07 [email or web address] Spontaneous unlabored Yes 11/20/24 14:07 [email or web address] respirations Mental status Awake,Calm 11/20/24 14:07 [email or web address] nausea No 11/20/24 14:07 [email or web address] Vomiting No 11/20/24 14:07 [email or web address] Anesthesia Postop Eval I: Fluid Summary Crystalloid volume administer 30 11/20/24 14:07 [email or web address] (ml) Colloids volume administered ( ml) Blood Product volume administered (ml) Total IV fluid infused 30 11/20/24 14:07 [email or web address] Anesthesia Postop Eval I: Summary Notes Anesthesia Complication No 11/20/24 14:07 [email or web address] Anesthesia Complication Comment: Post-operative progress note Anesthesia: Postop Eval II Evaluation Mental status: Awake and Calm Pain Level: 0 nausea: No Vomiting: No Complications Anesthesia Complication: No
== END 2024-11-20 14:45 | disposition home or self-care (01) ==
LOC: EN 12:31 → AC 12:34
PROVIDERS: PCP Family Medicine; Referring Provider Family Medicine; Visit Provider Internal Medicine Gastroenterology
PROC: 0DJ08ZZ Inspection of Upper Intestinal Tract, Via Natural or Artificial Opening Endoscopic (ICD-10-PCS; CPT 43235; principal; 2024-11-20 13:25)
DX: K21.00 Gastro-esophageal reflux disease with esophagitis, without bleeding (principal); E11.9 Type 2 diabetes mellitus without complications; K22.70 Barrett's esophagus without dysplasia; I10 Essential (primary) hypertension; Z87.891 Personal history of nicotine dependence; E78.5 Hyperlipidemia, unspecified; Z79.899 Other long term (current) drug therapy; Z79.85 Long-term (current) use of injectable non-insulin antidiabetic drugs
CPT/HCPCS: 43239; 82962; 88305; 88312; A4216; J2405

== ENCOUNTER → 2024-11-28 | Outpatient (CLI) | payer OTHER, SELFPAY ==
[2024-11-28 16:14] LABS: Absolute Lymphocyte Count 1.44 X10^3/uL (0.83-4.51); Absolute Neutrophil Count 5.3 X10^3/uL (2.0-7.7); Basophil# 0.07 X10^3/uL; Basophil% 0.9 % (0-1); Eosinophil# 0.23 X10^3/uL; Hematocrit 37.6 % (40-54); Hemoglobin 12.5 g/dL (13.0-16.5); Lymphocyte # 1.44 X10^3/ul (0.83-4.51); Lymphocyte % 18.9 % (19-41); Mean Corp Hgb Conc 33.2 g/dL (32-36); Mean Corpuscular Hgb 28.7 pg (27.0-32.0); Mean Corpuscular Volume 86.4 fL (80-94); Mean Platelet Vol. 9.9 fl (6.2-12.0); Monocyte# 0.61 X10^3/uL; NRBC Flagged by Analyzer 0 % (0-5); Neutrophil # 5.25 X10^3/uL (2.7-7.7); Neutrophil % 68.8 % (47-70); Platelet Count 290 K/mm3 (150-450); RBC Distribution Width SD 40.9 fl (35.1-43.9); Red Blood Count 4.35 M/mm3 (4.6-6.2); White Blood Count 7.6 K/mm3 (4.4-11.0)
[2024-11-28 17:09] LABS: ALB/GLOB Ratio 1.3 RATIO (0.9-2.4); AST(SGOT) 15 U/L (15-37); Alanine Aminotransfer ALT/SGPT 25 U/L (16-61); Albumin, Serum 3.9 g/dL (3.2-5.0); Alkaline Phosphatase 57 U/L (45-117); Anion Gap 7 (5-15); BUN 17 mg/dL (7-18); BUN/Creat Ratio 10.9 RATIO (10-20); Calcium,Total 8.9 mg/dL (8.5-10.1); Chloride 106 mmol/L (98-107); Creatinine, Serum 1.56 mg/dL (0.70-1.30); EST Glomerular Filtration Rate 47 mL/min (>60); Est Glom Filt Rate - Afr Amer 57 mL/min (>60); Globulin 3.1 g/dL (2.2-4.2); Glucose 101 mg/dL (74-106); Potassium 4.2 mmol/L (3.5-5.1); Sodium Level 137 mmol/L (136-145)
[2024-11-28 17:33] LABS: Hepatitis B Surface Antibody Reactive; Hepatitis B Surface Antigen Non-Reactive (Nonreactive); Hepatitis C Antibody Non-Reactive (Nonreactive)
[2024-11-30 05:06] LABS: Hepatitis A AB, Total Negative (Negative); Hepatitis B Core Ab Total Negative (Negative)
== END | disposition home or self-care (01) ==
PROVIDERS: PCP Family Medicine; Referring Provider Nurse Practitioner Acute Care; Visit Provider Nurse Practitioner Acute Care
DX: K31.89 Other diseases of stomach and duodenum (principal); E11.9 Type 2 diabetes mellitus without complications; K76.89 Other specified diseases of liver; K76.0 Fatty (change of) liver, not elsewhere classified
CPT/HCPCS: 36415; 80053; 85025; 86704; 86706; 86708; 86803; 87340

== ENCOUNTER → 2025-08-17 | Outpatient (CLI) | payer OTHER, SELFPAY ==
--- OUTSIDE RECORDS SUMMARY | 2025-08-17 10:11 | XMS RPT_ITS | CCD ---
Author Organization [facility] Care Team Providers Care [employer] Name Role Phone Say Snyder Unavailable Unavailable PROVIDER, UNKNOWN Unavailable Unavailable UNKNOWN, PROVIDER Unavailable Unavailable Cruz Prado MD Primary Care Provider Dr. Alexandre Giles III Referring Provider Dr. Kashif Schneider Attending Provider Dr. Cruz Prado Primary Care Provider Dr. Cruz Prado Referring Provider Stewart DELONG, BALJEET-C Susi Attending Provider Cruz Prado MD Primary Care Provider Tisha MONTOYA MD, Frank A Primary Care Provider Sue saloilable Cruz Prado MD Primary Care Provider Dr. rCuz Prado Primary Care Provider Dr. Cruz Prado Referring Provider Stewart DELONG, BALJEET-C Susi Attending Provider Cruz Prado MD Primary Care Provider LORIE MOSES Referring Unavailable CRUZ PRADO Primary Care Unavailable Cruz Prado MD Primary Care Provider Tisha MONTOYA MD, Frank A Primary Care Provider Sue vailafreda Moses LIFE SCIENCE TECHNICAL OFFICER.Lorie CRISOSTOMO Unavailable Anette Arreola PA-C Unavailable Dr. Cruz Prado MD Primary Care Provider Dr. Cruz Prado MD Referring Provider Juan Manuel GAYTANCWhit Attending Provider Talya MCKAY.SOCIAL MEDIA MANAGER, Lorie Unavailable Anette Arreola PA-C Unavailable Kevin UNDERGROUND ROOF BOLTER-CIrma Attending Provider Johan, Cruz Primary Care Unavailable Whit Zambrano Attending Unavailable Johan, Cruz Referring Unavailable Johan, Cruz Primary Care Unavailable Johan, Cruz Referring Unavailable FriendDany Attending Unavailable Johan, Cruz Primary Care Unavailable Assessment, Health Risk Attending Unavaila ble Assessment, Health Risk Referring Unavaila ble Irma Brown Referring Unavailable Irma Brown Attending Unavailable Johan, Cruz Primary Care Unavailable KevinIrma ya Referring Unavailable Johan, Cruz Primary Care Unavailable KevinIrma ya Attending Unavailable Johan, Cruz Primary Care Unavailable Johan, Cruz Referring Unavailable Whit Zambrano Attending Unavailable Johan, Cruz Primary Care Unavailable Irma Brown Attending Unavailable Johan, Cruz Referring Unavailable Johan, Cruz Primary Care Unavailable Dany Abdi Consulting Unavailable FriendDany Attending Unavailable Johan, Cruz Referring Unavailable Johan, Cruz Primary Care Unavailable Whit Zambrano Attending Unavailable Johan, Cruz Referring Unavailable Johan, Cruz Primary Care Unavailable KevinIrma ya Attending Unavailable Johan, Cruz Referring Unavailable Johan, Cruz Primary Care Unavailable KevinIrma ya Attending Unavailable Johan, Cruz Referring Unavailable Lucrecia Rayo Attending Unavailabl e Johan, Cruz Primary Care Unavailable Johan, Cruz Referring Unavailable KevinIrma Attending Unavailable KevinIrma Referring Unavailable Johan, Cruz Primary Care Unavailable Johan GUERRERO, Dr. Arroyo Primary Care Physician Dr. Cruz Prado MD Referring Provider Juan Manuel UNDERGROUND ROOF BOLTERWhit Garcia Attending Physician Irma Philippe Attending Physician [phone] JOHAN, CRUZ A Referring Unavailable JOHAN, CRUZ A Primary Care Unavailable JOHAN, CRUZ A Attending Unavailable JOHAN, CRUZ A Primary Care Unavailable JOHAN, CRUZ A Primary Care Unavailable JOHAN, CRUZ A Primary Care Unavailable LORIE MOSES Referring Unavailable CRUZ PRADO A Attending Unavailable CRUZ PRADO A Primary Care Unavailable CRUZ PRADO A Referring Unavailable CRUZ PRADO A Primary Care Unavailable ANI LINARES Attending Unavailable JOHAN, CRUZ A Primary Care Unavailable LOREN VALLECILLO Attending Unavailable JOHAN, CRUZ A Primary Care Unavailable JOHAN, CRUZ A Primary Care Unavailable CRUZ PRADO A Primary Care Unavailable ASIM DENIS Attending Unavailable ANI LINARES Attending Unavailable SELF Referring Unavailable JOHANCHERYL CASTREY A Primary Care Unavailable JOHANCHERYL CASTREY A Referring Unavailable JOHANCHERYL CASTREY A Primary Care Unavailable Allergies Allergy Classification Reported Allergen(s) Allergy Type Date of Onset Reaction(s) Facility Amitriptyline (1 source) Amitriptyline Drug Allergy 8 Intolerance [facility] Work Phone: Opioid Agonists (1 source) traMADol Drug Allergy 8 Vomiting [facility] (20 sources) Amitriptyline; Translations: [AMITRIPTYLINE] Drug Allergy 8 Intolerance [facility] Work Phone: (20 sources) traMADol; Translations: [TRAMADOL] Drug Allergy 8 Vomiting [facility] Work Phone: (20 sources) Bee Sting; Translations: [BEE STING] Allergy to substance 1 Anaphylaxis [facility] Work Phone: (8 sources) bee venom protein (honey bee) Allergy to substance 2 Anaphylaxis [facility] (10 sources) traZODone; Translations: [TRAZODONE] Drug Allergy 5 Other: See Comments [facility] (1 source) Amitriptyline Drug Allergy 5 [facility] (1 source) traMADol Drug Allergy 5 [facility] (1 source) bee venom protein (honey bee) Drug allergy (disorder) 5 [facility] Medications Current Medications Medication Drug Class(es) Dates Sig (Normalized) Sig (Original) amoxicillin 875 mg / clavulanate 125 mg oral tablet (8 sources) Penicillin-class Antibacterial Start: 02-18-2025 End: 02-25-2025 take 1 tablet by mouth twice daily amoxicillin-clavulan ate potassium (AUGMENTIN) 875-125 mg per tablet Indications: Rhinosinusitis Take 1 tablet by mouth two times a day for 7 days. 14 tablet 02/18/2025 02/25/2025 Active Start: 12-12-2024 End: 12-22-2024 take 1 tablet by mouth twice daily amoxicillin-clavulanate potassium (AUGMENTIN) 875-125 mg per tablet Indications: Acute recurrent sinusitis, unspecified location Take 1 tablet by mouth two times a day for 10 days. 20 tablet 12/12/2024 12/22/2024 Active Start: 04-02-2024 End: 04-07-2024 take 1 tablet by mouth twice daily amoxicillin-clavulanate potassium (AUGMENTIN) 875-125 mg per tablet Indications: Acute non-recurrent sinusitis, unspecified location Take 1 tablet by mouth two times a day for 5 days. 10 tablet 0 04/02/2024 04/07/2024 Start: 09-27-2023 End: 10-07-2023 take 1 tablet by mouth twice daily amoxicillin-clavulanate potassium (AUGMENTIN) 875-125 mg per tablet Indications: Pain of maxillary sinus Take 1 tablet by mouth two times a day for 10 days. 20 tablet 0 09/27/2023 10/07/2023 Active Start: 02-19-2022 End: 02-24-2022 take 1 tablet by mouth twice daily amoxicillin-clavulanic acid (AUGMENTIN) 875-125 mg per tablet Take 1 tablet by mouth twice daily for 5 days. 10 tablet 0 02/19/2022 02/24/2022 Active Comment on above: Take 1 tablet by gulshan th twice daily for 5 days. Take 1 tablet by gulshan th two times a day for 10 days. atorvastatin 10 mg oral tablet (20 sources) HMG-CoA Reductase Inhibitor Start: End: take 1 tablet by mouth at bedtime Atorvastatin (Lipitor) 10 mg tablet Active 10 mg PO AT BEDTIME September 24, 2024 1:00am Complies with drug therapy Comment on above: Take 1 tablet by gulshan th daily at bedtime. For cholesterol. azelastine hydrochloride 0.137 mg/actuat metered dose nasal spray (3 sources) Histamine-1 Receptor Antagonist Start: 5 take 1 spray(s) nasal route twice daily azelastine 0.1% nasal spray Indications: Seasonal allergic rhinitis due to other allergic trigger Use 1 spray in each nostril two times a day. 30 mL 2 04/01/2025 Active baclofen 10 mg oral tablet (20 sources) gamma-Aminobutyric Acid-ergic Agonist Start: 4 End: 5 take 1 tablet by mouth at bedtime as needed for pain Baclofen 10 mg tablet Active 10 mg PO AT BEDTIME as needed for pain September 24, 2024 1:00am Complies with drug therapy Start: 08-04-2023 take 1 tablet by gulshan th every eight hours as needed baclofen 10 mg tablet Take 1 tablet by mouth three times a day as needed (muscle spasms). 30 tablet 5 08/04/2023 Active Comment on above: Take 1 tablet by gulshan th three times a day as needed (muscle spasms). benzonatate 100 mg oral capsule (2 sources) Non-narcotic Antitussive Start: 5 End: 5 take 1 capsule by mouth three times daily as needed for cough benzonatate (TESSALON PERLE) 100 mg capsule Indications: Acute cough Take 1 capsule by mouth three times a day as needed for cough for up to 7 days. 21 capsule 04/01/2025 04/08/2025 Active Start: 12-12-2024 End: 12-19-2024 take 1 capsule by mouth three times daily as needed for cough benzonatate (TESSALON PERLE) 100 mg capsule Indications: Acute recurrent sinusitis, unspecified location Take 1 capsule by mouth three times a day as needed for cough for up to 7 days. 21 capsule 12/12/2024 12/19/2024 Active Blood-Glucose Meter (Onetouch Verio Reflect) kit (3 sources) Start: 04-29-2025 Blood-Glucose Meter (Onetouch Verio Reflect) kit Active 0 .Route 1 0 April 29, 2025 12:00am Type 2 diabetes mellitus Type 2 diabetes mellitus without complications As directed Blood-Glucose Meter monitoring kit (1 source) Start: 10-18-2024 End: 10-19-2024 Blood-Glucose Meter monitoring kit Glucose Meter of Choice - Kit - Dx: Other DM Code E11.22 1 Each 10/18/2024 10/19/2024 Active docusate sodium 100 mg oral capsule (20 sources) Start: 02-03-2019 End: 05-02-2024 take 1 capsule by mouth every twelve hours as needed docusate sodium (COLACE) 100 mg capsule Take 1 capsule by mouth two times a day as needed for constipation. 60 capsule 5 05/02/2024 Active Comment on above: Take 1 capsule by mo uth twice daily as needed for Constipation. Take 1 capsule by mo uth two times a day as needed for constipation. doxycycline monohydrate 100 mg oral capsule (6 sources) Tetracycline-c lass Drug Start: 04-01-2025 End: 04-08-2025 take 1 capsule by mouth twice daily doxycycline monohydrate (MONODOX) 100 mg capsule Indications: Acute non-recurrent pansinusitis Take 1 capsule by mouth two times a day for 7 days. 14 capsule 04/01/2025 04/08/2025 Active Start: 07-19-2022 End: 07-24-2022 take 1 tablet by mouth twice daily doxycycline monohydrate 100 mg tablet Take 1 tablet by mouth twice daily for 5 days. 10 tablet 0 07/19/2022 07/24/2022 Active Start: 07-08-2022 End: 07-18-2022 take 1 tablet by mouth twice daily doxycycline (VIBRA-TABS) 100 mg tablet Take 1 tablet by mouth twice daily for 10 days. 20 tablet 0 07/08/2022 07/18/2022 Active Comment on above: Take 1 tablet by gulshan twice daily for 10 days. Take 1 tablet by gulshan twice daily for 5 days. [id number] 0.3 ml EPINEPHrine 1 mg/ml auto-injector (20 sources) alpha-Adrenergic Agonist, beta-Adrenergic Agonist, Catecholamine Start: 10-20-2022 Epinephrine 0.3 mg/0.3 mL auto-injector Active 0.3 mL SC ONCE as needed for anaphylaxis October 20, 2022 1:00am Complies with drug therapy Start: 10-20-2022 Epinephrine Ac tive 0.3 ML SC ONCE October 20, 2022 1:00am Start: 05-20-2021 End: 08-31-2024 EPINEPHrine (AUVI-Q) 0.3 mg/ 0.3 mL auto-injector Inject 0.3 mL intramuscularly as needed. 1 Each 1 08/31/2024 Active Comment on above: Inject 0.3 mL intram uscularly as needed. erythromycin 0.005 mg/mg ophthalmic ointment (20 sources) Macrolide, Macrolide Antimicrobial Start: 01-08-2023 End: 01-15-2023 erythromycin (ROMYCIN) 5 mg/gram (0.5 %) ophthalmic ointment Use 1 application in the left eye four times daily for 7 days. 1 g 0 01/08/2023 01/15/2023 Active Start: 02-03-2022 End: 06-15-2022 Erythromycin 5 mg/gram (0.5 %) ointment Discontinued February 03, 2022 12:00am June 15, 2022 8:19am Start: 01-24-2022 End: 01-08-2023 erythromycin (ROMYCIN) 5 mg/ gram (0.5 %) ophthalmic ointment Indications: Irritation of right eye Use 1 application in the right eye three times daily. 3.5 g 0 01/24/2022 01/08/2023 Discontinued Comment on above: Use 1 application in the right eye three times daily. Use 1 application in the left eye four times daily for 7 days. esomeprazole 40 mg delayed release oral capsule (20 sources) Proton Pump Inhibitor Start: 01-17-20 take 1 capsule by mouth twice daily esomeprazole (NEXIUM) 40 mg capsule Indications: Gastroesophageal reflux disease with esophagitis without hemorrhage Take 1 capsule by mouth two times a day. 180 capsule 1 01/16/2025 Active Start: 08-04-2022 End: 01-16-2025 take 1 capsule by mouth once daily Esomeprazole Magnesium 40 mg capsule,delayed release(DR/EC) Discontinued 40 mg PO DAILY October 20, 2022 1:00am September 24, 2024 10:11am Start: 12-14-2021 End: 02-18-2022 take 1 capsule by mouth once daily esomeprazole (NEXIUM) 40 mg capsule Take 1 capsule by mouth once daily. 90 capsule 1 02/19/2022 Active Start: 03-12-2020 End: 11-06-2021 take 1 capsule by mouth once daily esomeprazole (NEXIUM) 40 mg capsule Take 1 capsule by mouth once daily. 90 capsule 3 09/11/2020 05/20/2021 Discontinued Start: 02-12-2020 End: 10-20-2022 take 40 mg by mouth once daily Esomeprazole Magnesium [address] for susp in packet Discontinued 40 mg PO DAILY February 12, 2020 12:00am October 20, 2022 11:56am Comment on above: Take 1 capsule by [facility] once daily. ferrous sulfate 325 mg oral tablet (17 sources) Start: 01-18-2025 take 1 tablet by mouth every other day ferrous sulfate 325 mg (65 mg iron) tablet Take 1 tablet by mouth every other day. 45 tablet 3 01/18/2025 Active Start: 02-12-2020 End: 10-20-2021 take 1 tablet by mouth twice daily Ferrous Sulfate (Iron (Ferrous Sulfate)) 325 mg (65 mg iron) tablet Discontinued 325 mg PO TWICE A DAY February 12, 2020 12:00am October 20, 2021 10:33pm fluticasone propionate 0.05 mg/actuat metered dose nasal spray (20 sources) Corticosteroid Start: 04-01-2025 take 1 spray(s) nasal route twice daily fluticasone (FLONASE ALLERGY RELIEF) 50 mcg/actuation nasal spray Indications: Seasonal allergic rhinitis due to other allergic trigger Use 1 spray in each nostril two times a day. 16 g 2 04/01/2025 Active Start: 10-20-2022 Fluticasone Pr opionate 50 mcg/actuation spray,suspension Active 2 NMA INTRANASAL DAILY as needed for nasal congestion October 20, 2022 1:00am Complies with drug therapy Start: 10-20-2022 Fluticasone Pr opionate Active 2 SPRAY INTRANASAL DAILY October 20, 2022 1:00am Start: 02-12-2020 End: 10-21-2021 Fluticasone Propionate 50 mc g/actuation spray,suspension Discontinued INTRANASAL February 12, 2020 12:00am October 21, 2021 12:41pm Start: 02-24-2019 End: 04-01-2025 take 2 spray(s) by mouth once daily fluticasone (FLONASE) 50 mcg/actuation nasal spray Indications: ETD (Eustachian tube dysfunction), bilateral , Seasonal allergic rhinitis due to other allergic trigger Use 2 Sprays in each nostril once daily. Rinse mouth after use. 1 Each 08/31/2024 04/01/2025 Discontinued Comment on above: Use 2 Sprays in each nostril once daily. Rinse mouth after use. meloxicam 15 mg oral tablet (2 sources) Nonsteroidal Anti-inflammatory Drug Start: 09-26-20 End: 11-25-19 take 1 tablet by mouth once daily meloxicam (MOBIC) 15 mg tablet Indications: Trigger ring finger of right hand , Dupuytren's disease of palm Take 1 tablet by mouth once daily. 30 tablet 1 09/26/2023 11/25/2023 Active Comment on above: Take 1 tablet by gulshan once daily. nirmatrelvir tablet 150 mg and ritonavir tablet 100 mg in a dose pack (PAXLOVID) (1 source) Start: 07-09-20 End: 07-14-20 nirmatrelvir tablet 150 mg and ritonavir tablet 100 mg in a dose pack (PAXLOVID) Indications: Upper respiratory tract infection due to COVID-19 virus Administer ONE pink nirmatrelvir 150 mg tablet and ONE white ritonavir 100 mg tablet for a total of two tablets twice daily. 20 tablet 0 07/09/2022 07/14/2022 Active Comment on above: Administer ONE pink nirmatrelvir 150 mg tablet and ONE white ritonavir 100 mg tablet for a total of two tablets twice daily. predniSONE 10 mg oral tablet (20 sources) Start: 04-12-20 End: 04-18-20 take 4 tablets by mouth once daily, then take 2 tablets by mouth once daily, then take 1 tablet by mouth once daily predniSONE (DELTASONE) 10 mg tablet Indications: Chronic sinusitis, unspecified location Take 4 tablets by mouth once daily for 3 days, THEN 2 tablets once daily for 2 days, THEN 1 tablet once daily for 1 day. Take with food.. 17 tablet 0 04/12/2024 04/18/2024 Active Start: 10-26-2023 predniSONE (DE LTASONE) 10 mg tablet Indications: Trigger ring finger of right hand , Dupuytren's disease of palm 6 tabs po day 1, then 5 tabs day 2, 4 tabs day 3, 3 tabs day 4, 2 tabs day 5, 1 tab day 6. 21 tablet 0 10/26/2023 Active Start: 06-02-2023 End: 09-24-2024 take 2 tablets by mouth once daily Prednisone 20 mg tablet Discontinued 40 mg PO DAILY 8 June 02, 2023 12:00am September 24, 2024 9:29am Start: 06-02-2023 take 40 mg by mouth once daily Prednisone Active 40 MG PO DAILY June 02, 2023 12:00am Start: 01-21-2023 End: 05-13-2023 predniSONE (DELTASONE) 10 mg tablet Indications: Greater trochanteric bursitis of both hips Take 6 tabs by mouth for 3 days then 4 tabs a day for 3 days then 2 tabs a day for 3 days and then 1 tab a day for 3 days. 39 tablet 01/21/2023 05/13/2023 Discontinued Start: 12-09-2022 predniSONE (DE LTASONE) 10 mg tablet Indications: Greater trochanteric bursitis of both hips Take 6 tabs by mouth for 3 days then 4 tabs a day for 3 days then 2 tabs a day for 3 days and then 1 tab a day for 3 days. 39 tablet 0 12/09/2022 Active Start: 08-23-2022 End: 08-28-2022 take 2 tablets by mouth once daily predniSONE (DELTASONE) 20 mg tablet Indications: ETD (Eustachian tube dysfunction), bilateral Take 2 tablets by mouth once daily for 5 days. 10 tablet 0 08/23/2022 08/28/2022 Active Start: 07-19-2022 End: 07-24-2022 take 1 tablet by mouth once daily predniSONE (DELTASONE) 20 mg tablet Take 1 tablet by mouth once daily for 5 days. 5 tablet 0 07/19/2022 07/24/2022 Active Comment on above: Take 1 tablet by gulshan once daily for 5 days. Take 2 tablets by mo [facility] once daily for 5 days. Take 6 tabs by mouth for 3 days then 4 tabs a day for 3 days then 2 tabs a day for 3 days and then 1 tab a day for 3 days. 6 tabs po day 1, the n 5 tabs day 2, 4 tabs day 3, 3 tabs day 4, 2 tabs day 5, 1 tab day 6. 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 1 Each 1 10/17/2024 Active sodium chloride 0.111 meq/ml nasal spray (20 sources) Start: 04-01-2025 sodium chlorid e (SALINE NASAL) 0.65 % nasal spray Indications: Seasonal allergic rhinitis due to other allergic trigger Use 1 spray in the nose two times a day. 100 mL 2 04/01/2025 Active Start: 07-08-2022 End: 05-13-2023 sodium chloride (SALINE MIST ) 0.65 % nasal spray Use 1 [place] in the nose as needed for cold/allergy symptoms. 15 mL 07/08/2022 05/13/2023 Discontinued Comment on above: Use 1 [place] in the n ose as needed for cold/allergy symptoms. traZODone hydrochloride 50 mg oral tablet (20 sources) Serotonin Reuptake Inhibitor Start: End: take 1 tablet by mouth once daily at bedtime traZODone (DESYREL) 50 mg tablet Indications: Chronic insomnia Take 1 tablet by mouth daily at bedtime. 90 tablet 1 05/30/2025 11/26/2025 Active Start: 03-29-2025 End: 09-25-2025 take 0.5 tablet by mouth once daily at bedtime traZODone (DESYREL) 50 mg tablet Indications: Chronic insomnia Take 0.5 tablets by mouth daily at bedtime. 45 tablet 1 03/29/2025 05/30/2025 Discontinued Start: 09-24-2024 End: 04-29-2025 Trazodone 100 mg tablet Disc ontinued 50 mg PO AT BEDTIME September 24, 2024 9:30am April 29, 2025 9:08am Start: 05-02-2024 End: 04-27-2025 take 1 tablet by mouth once daily at bedtime traZODone (DESYREL) 50 mg tablet Indications: Chronic insomnia Take 1 tablet by mouth daily at bedtime. 90 tablet 1 10/29/2024 01/16/2025 Discontinued (Adverse Reaction) Start: 09-21-2021 End: 09-24-2024 take 1 tablet by mouth at bedtime Trazodone 100 mg tablet Discontinued 100 mg PO AT BEDTIME October 20, 2022 11:56am September 24, 2024 9:33am Start: 02-12-2020 End: 10-20-2021 Trazodone 50 mg tablet Disco ntinued PO February 12, 2020 12:00am October 20, 2021 10:33pm Start: 02-12-2020 End: 10-20-2021 take 0.5 tablet by mouth once daily at bedtime traZODone (DESYREL) 50 mg tablet Take 0.5 tablets by mouth daily at bedtime. 45 tablet 3 09/11/2020 01/23/2021 Discontinued Comment on above: Take 1 tablet by gulshan th daily at bedtime. Completed/Discontinued Medications Medication Drug Class(es) Dates Sig (Normalized) Sig (Original) 24 hr alfuzosin hydrochloride 10 mg extended release oral tablet (8 sources) alpha-Adrenergic Estelita Start: 03-13-2017 End: 02-12-2020 take 1 tablet by mouth once daily Alfuzosin 10 MG tablet extended release 24 hr Discontinued 10 mg PO DAILY March 13, 2017 12:00am February 12, 2020 8:23am amLODIPine 10 mg oral tablet (20 sources) Dihydropyridine Calcium Channel Estelita Start: 10-21-2021 End: 09-06-2024 take 1 tablet by mouth once daily Amlodipine 10 mg tablet Discontinued 10 mg PO DAILY 90 3 March 02, 2024 4:00pm September 06, 2024 11:17am Comment on above: Take 1 tablet by gulshan th once daily. Per CardioDr. Schneider aspirin 81 mg chewable tablet (8 sources) Platelet Aggregation Inhibitor, Nonsteroidal Anti-inflammatory Drug Start: 03-13-2017 End: 02-12-2020 take 1 tablet by mouth once daily Aspirin 81 MG tablet,chewable Discontinued 81 mg PO DAILY@0800 March 13, 2017 12:00am February 12, 2020 8:23am baclofen 2 % cmap (5 sources) Start: 09-01-2023 baclofen 2 % cmap Indications: Muscle tightness Apply 1 Dose to affected area two times a day as needed. 30 g 1 09/01/2023 Active Comment on above: Apply 1 Dose to affe cted area two times a day as needed. betamethasone 3 mg/ml / betamethasone acetate 3 mg/ml injectable suspension (2 sources) Corticosteroid Start: 12-24-2019 End: 04-01-2021 betamethasone acetate-betamethas one sodium phosphate 3 mg injection (CELESTONE) carvedilol 25 mg oral tablet (20 sources) alpha-Adrenergic Estelita, beta-Adrenergic Estelita Start: 10-21-2021 End: 09-06-2024 take 1 tablet by mouth twice daily at mealtime Carvedilol 25 mg tablet Discontinued 25 mg PO TWICE A DAY 180 3 November 29, 2023 1:18pm September 06, 2024 11:17am must administer with a meal/food Start: 03-13-2017 End: 10-21-2021 take 1 capsule by mouth once daily Carvedilol Phosphate 20 MG capsule, ER multiphase 24 hr Discontinued 20 mg PO DAILY March 13, 2017 12:00am October 21, 2021 1:08pm Comment on above: [facility] Per [facility]. Schneider celecoxib 200 mg oral capsule (13 sources) Nonsteroidal Anti-inflammatory Drug Start: 2022 End: 2022 take 1 capsule by mouth once daily celecoxib (CELEBREX) 200 mg capsule Take 1 capsule by mouth once daily. 90 capsule 1 05/19/2023 08/19/2023 Discontinued (Course of therapy completed) Comment on above: Take 1 capsule by mo [facility] once daily. cyclobenzaprine hydrochloride 10 mg oral tablet (20 sources) Muscle Relaxant Start: 2019 End: 2022 take 1 tablet by mouth three times daily as needed Cyclobenzaprine 10 mg tablet Discontinued 10 mg PO THREE TIMES A DAY as needed February 12, 2020 12:00am June 15, 2022 8:19am Comment on above: Take 1 tablet by gulshan three times daily as needed. dicyclomine hydrochloride 10 mg oral capsule (20 sources) Anticholinergic Start: 2022 End: 2024 take 1 capsule by mouth twice daily Dicyclomine 10 mg capsule Discontinued 10 mg PO TWICE A DAY 180 September 24, 2024 10:04am November 15, 2024 11:29am Comment on above: Take 1 capsule by mo ut before meals and at bedtime. 0.5 ml dulaglutide 1.5 mg/ml auto-injector (20 sources) GLP-1 Receptor Agonist Start: 2023 End: 2023 inject 0.75 mg by subcutaneous injection every week dulaglutide (TRULICITY) 0.75 mg/0.5 mL pen injector Inject 0.75 mg subcutaneously one time a week. Inject dose once per week. Discard Pen After 1 Each 10/08/2024 10/17/2024 Discontinued (Not on Formulary) Start: 11-29-2023 End: 11-15-2024 Dulaglutide (Trulicity) 1.5 mg/0.5 mL pen injector Discontinued 1.5 mg SC EVERY WEEK September 24, 2024 1:00am November 15, 2024 11:28am Start: 08-04-2022 End: 08-04-2023 dulaglutide (TRULICITY) 1.5 mg/0.5 mL pen injector Indications: Controlled type 2 diabetes mellitus with stage 3 chronic kidney disease, without long-term current use of insulin (HCC) Inject 1.5 mg subcutaneously one time a week. Inject once per week. Discard Pen After 12 Each 1 08/04/2023 Active Start: 02-16-2021 End: 06-15-2022 Dulaglutide (Trulicity) 1.5 mg/0.5 mL pen injector Discontinued 1.5 mg SC EVERY WEEK October 21, 2021 1:00am June 15, 2022 8:19am Start: 02-12-2020 End: 10-21-2021 Dulaglutide 0.75 mg/0.5 mL p en injector Discontinued mg SC February 12, 2020 12:00am October 21, 2021 12:41pm Comment on above: Inject 1.5 mg subcut aneously one time a week. Inject once per week. Discard Pen After empagliflozin 25 mg oral tablet (8 sources) Sodium-Glucose Cotransporter 2 Inhibitor Start: 01-29-20 End: 05-30-20 take 1 tablet by mouth once daily in the morning Empagliflozin (Jardiance) 25 mg tablet Discontinued 25 mg PO EVERY MORNING 90 January 28, 2025 12:00am April 29, 2025 9:07am famotidine 20 mg oral tablet (5 sources) Histamine-2 Receptor Antagonist Start: 06-02-20 End: 09-24-20 take 1 tablet by mouth once daily Famotidine (Pepcid) 20 mg tablet Discontinued 20 mg PO DAILY 7 June 02, 2023 12:00am September 24, 2024 9:28am for allergic reaction ferrous sulfate (SLOW FE) 137 mg (45 mg iron) TbER (20 sources) Start: 08-31-20 End: 01-17-20 take 1 tablet by mouth every other day ferrous sulfate (SLOW FE) 137 mg (45 mg iron) TbER Take 1 tablet by mouth every other day. 90 tablet 1 08/31/2024 01/16/2025 Discontinued (Discontinued by Patient) Start: 08-31-2024 take 1 tablet by gulshan th every other day ferrous sulfate (SLOW FE) 137 mg (45 mg iron) TbER Take 1 tablet by mouth every other day. 90 tablet 1 08/31/2024 Active Start: 05-02-2024 End: 08-31-2024 take 1 tablet by mouth every other day ferrous sulfate (SLOW FE) 137 mg (45 mg iron) TbER Take 1 tablet by mouth every other day. 90 tablet 1 05/02/2024 08/31/2024 Discontinued Start: 05-02-2024 take 1 tablet by gulshan th every other day ferrous sulfate (SLOW FE) 137 mg (45 mg iron) TbER Take 1 tablet by mouth every other day. 90 tablet 1 05/02/2024 Active Start: 12-30-2023 End: 05-02-2024 take 1 tablet by mouth every other day ferrous sulfate (SLOW FE) 137 mg (45 mg iron) TbER Take 1 tablet by mouth every other day. 0 12/30/2023 05/02/2024 Discontinued Start: 12-30-2023 take 1 tablet by gulshan th every other day ferrous sulfate (SLOW FE) 137 mg (45 mg iron) TbER Take 1 tablet by mouth every other day. 0 12/30/2023 Active Comment on above: Take 1 tablet by gulshan th every other day. gabapentin 100 mg oral capsule (20 sources) Anti-epileptic Agent Start: 03-29-2025 End: 09-25-2025 gabapentin (NEURONTIN) 100 mg capsule Take gabapentin 100 mg in the evening before bed. 03/29/2025 05/30/2025 Discontinued Start: 01-16-2025 End: 11-26-2025 take 2 capsules by mouth once daily at bedtime gabapentin (NEURONTIN) 100 mg capsule Take 2 capsules by mouth daily at bedtime for 180 days. Take gabapentin 100 mg in the evening before bed. 180 capsule 1 05/30/2025 11/26/2025 Active Start: 10-20-2022 End: 09-24-2024 take 2 capsules by mouth once daily Gabapentin 100 mg capsule Discontinued 200 mg PO DAILY October 20, 2022 1:00am September 24, 2024 9:28am Start: 10-20-2022 take 200 mg by mouth once albino y Gabapentin Active 200 MG PO DAILY October 20, 2022 1:00am Start: 09-09-2022 End: 05-13-2023 gabapentin (NEURONTIN) 100 m g capsule Take gabapentin 100 mg in the evening for a week, then increase to two 100 mg capsules for a week, and then increase up to three 100 mg capsules 90 capsule 5 09/09/2022 05/13/2023 Discontinued Start: 02-12-2020 End: 10-20-2021 take 1 capsule by mouth three times daily Gabapentin (Neurontin) 100 mg capsule Discontinued 100 mg PO THREE TIMES A DAY February 12, 2020 12:00am October 20, 2021 10:33pm Comment on above: Take gabapentin 100 mg in the evening for a week, then increase to two 100 mg capsules for a week, and then increase up to three 100 mg capsules hydroCHLOROthiazide 12.5 mg oral capsule (10 sources) Thiazide Diuretic Start: End: Hydrochlorothiazide 12.5 mg capsule Discontinued PO February 12, 2020 12:00am October 20, 2021 10:33pm Start: 02-12-2020 End: 10-20-2021 take 1 capsule by mouth once daily Hydrochlorothiazide 12.5 mg capsule Take 1 capsule by mouth once daily. 10 capsule 1 06/20/2020 01/12/2021 Discontinued (Changing Therapy/Dosage Form) hydrOXYzine hydrochloride 10 mg oral tablet (20 sources) Antihistamine Start: 05-13-2023 take 1 tablet by mouth every eight hours as needed for anxiety and anxiety hydrOXYzine HCl (ATARAX) 10 mg tablet Indications: Anxiety Take 1 tablet by mouth three times daily as needed for anxiety. 270 tablet 1 05/13/2023 Active Start: 01-21-2023 End: 01-26-2023 take 1 tablet by mouth every eight hours as needed for anxiety and anxiety hydrOXYzine HCl (ATARAX) 10 mg tablet Indications: Anxiety Take 1 tablet by mouth three times daily as needed for anxiety. 270 tablet 1 01/21/2023 01/26/2023 Discontinued Start: 08-09-2022 take 1 tablet by gulshan th every eight hours as needed for anxiety and anxiety hydrOXYzine HCl (ATARAX) 10 mg tablet Indications: Anxiety Take 1 tablet by mouth three times daily as needed for anxiety. 270 tablet 1 08/09/2022 Active Start: 05-20-2021 End: 08-06-2022 take 1 tablet by mouth three times daily as needed Hydroxyzine Hcl 10 mg tablet Discontinued 10 mg PO THREE TIMES A DAY as needed October 20, 2021 1:00am October 21, 2021 12:41pm Comment on above: Take 1 tablet by gulshan th three times daily as needed for anxiety. 10 ml lidocaine hydrochloride 10 mg/ml injection (2 sources) Antiarrhythmic, Amide Local Anesthetic Start: 12-24-19 End: 04-01-20 lidocaine (PF) 10 mg/mL (1 %) 0.5 mL injection (XYLOCAINE) lisinopril 10 mg oral tablet (8 sources) Angiotensin Converting Enzyme Inhibitor Start: 03-13-20 End: 02-12-20 take 1 tablet by mouth once daily Lisinopril 10 MG tablet Discontinued 10 mg PO DAILY March 13, 2017 12:00am February 12, 2020 8:23am LORazepam 2 mg oral tablet (13 sources) Benzodiazepine End: 05-13-20 23 LORazepam (ATIVAN) 2 mg tab 05/13/2023 Discontinued losartan potassium 100 mg oral tablet (20 sources) Angiotensin 2 Receptor Estelita Start: 06-10-20 End: 09-06-20 24 take 1 tablet by mouth once daily Losartan 100 mg tablet Discontinued 100 mg PO DAILY 90 3 November 29, 2023 1:18pm September 06, 2024 11:17am Start: 02-12-2020 End: 10-20-2021 Losartan 50 mg tablet Discon tinued PO February 12, 2020 12:00am October 20, 2021 10:31pm Start: 02-12-2020 End: 10-20-2021 take 1 tablet by mouth once daily losartan (COZAAR) 50 mg tablet Indications: Essential hypertension, benign Take 1 tablet by mouth once daily. 30 tablet 07/10/2020 01/12/2021 Discontinued Comment on above: Take 1 tablet by gulshan th once daily. MEDICATION, NON-DATABASE (2 sources) End: 11-06-2021 MEDICATION, NON-DATABASE SARAPIN INJECTION NEEDED LIDOCAINE INJECTION NEEDED 11/06/2021 Discontinued metFORMIN hydrochloride 1000 mg oral tablet (20 sources) Biguanide Start: 10-20-2021 End: 10-21-2021 Metformin 1,000 mg tablet Discontinued 500 mg PO TWICE DAILY WITH MEALS October 20, 2021 10:32pm October 21, 2021 12:41pm Start: 10-20-2021 End: 10-21-2021 take 500 mg by mouth twice daily at mealtime Metformin Discontinued 500 MG PO TWICE DAILY WITH MEALS October 20, 2021 10:32pm October 21, 2021 12:41pm Start: 06-21-2020 End: 10-21-2020 take 0.5 tablet by mouth twice daily at mealtime metFORMIN (GLUCOPHAGE) 1,000 mg tablet Take 0.5 tablets by mouth twice daily with meals. 180 tablet 3 06/21/2020 10/21/2020 Discontinued Start: 03-13-2017 End: 01-28-2025 take 1 tablet by mouth twice daily at mealtime Metformin 1,000 mg tablet Discontinued 1000 mg PO TWICE DAILY WITH MEALS October 21, 2021 12:40pm January 28, 2025 10:28am Comment on above: Take 1 tablet by gulshan th twice daily with meals. Take 1 tablet by gulshan th two times a day with meals. omeprazole 40 mg delayed release oral capsule (8 sources) Proton Pump Inhibitor Start: 03-13-20 End: 02-12-20 take 1 capsule by mouth once daily Omeprazole 40 MG capsule Discontinued 40 mg PO DAILY March 13, 2017 12:00am February 12, 2020 8:19am ondansetron 4 mg disintegrating oral tablet (20 sources) Serotonin-3 Receptor Antagonist Start: 01-31-20 24 End: 05-30-20 25 take 1 tablet by mouth every six hours as needed for nausea ondansetron orally disintegrating (ZOFRAN ODT) 4 mg disintegrating tablet Indications: Irritable bowel syndrome with both constipation and diarrhea Take 1 tablet by mouth every 6 hours as needed for nausea/vomiting. 30 tablet 01/31/2024 05/30/2025 Discontinued (Course of therapy completed) Comment on above: Take 1 tablet by gulshan th every 6 hours as needed for nausea/vomiting. phentolamine-alprostad il 0.5 mg - 20 mcg/mL injection (CPD) (20 sources) Start: 01-30-20 End: 05-13-20 23 phentolamine-alprostad il 0.5 mg - 20 mcg/mL injection (CPD) Inject 20 units into the intracavernosal region of the penis 5 mL 2 01/29/2022 05/13/2023 Discontinued Start: 01-29-2022 phentolamine-a lprostadil 0.5 mg - 20 mcg/mL injection (CPD) Inject 20 units into the intracavernosal region of the penis 5 mL 2 01/29/2022 Active Comment on above: Inject 20 units into the intracavernosal region of the penis polyethylene glycol 3350 984678 mg / potassium chloride 2970 mg / sodium bicarbonate 6740 mg / sodium chloride 5860 mg / sodium sulfate 89320 mg powder for oral solution (2 sources) Osmotic Laxative Start: End: peg 3350-Electrolytes (GOLYTELY) 236-22.74-6.74 -5.86 gram suspension Take 4,000 mL by mouth one time only for 1 dose. 1 Each 0 04/02/2022 04/02/2022 Comment on above: Take 4,000 mL by gulshan th one time only for 1 dose. polymyxin b 38021 unt/ml / trimethoprim 1 mg/ml ophthalmic solution (10 sources) Dihydrofolate Reductase Inhibitor Antibacterial, Polymyxin-class Antibacterial Start: 023 take 2 drop(s) into the eye(s) three times daily trimethoprim-polymyxin (POLYTRIM) 10,000 unit- 1 mg/mL ophthalmic solution Use 2 Drops in the left eye three times a day. 10 mL 0 08/19/2023 Active Comment on above: Use 2 Drops in the l eft eye three times a day. pseudoephedrine hydrochloride 30 mg oral tablet (20 sources) alpha-Adrenergic Agonist Start: End: pseudoephedrine (SUDAFED) 30 mg tablet Take Four 4 (30 mg) Tablets for an erection lasting more than 2 hours. If not improved in 1 hour MUST go to ER 12 tablet 1 02/16/2022 01/03/2024 Discontinued Comment on above: Take Four 4 (30 mg) Tablets for an erection lasting more than 2 hours. If not improved in 1 hour MUST go to ER rOPINIRole 0.5 mg oral tablet (20 sources) Nonergot Dopamine Agonist Start: End: Ropinirole 0.5 mg tablet Discontinued 0.5 mg PO .COMPLEX October 20, 2022 1:00am September 24, 2024 9:30am 0.5 mg orally; Take one tablet in an evening for 2 weeks then go to two in the evening. Start: 10-13-2022 End: 05-13-2023 take 1 tablet by mouth three times daily rOPINIRole (REQUIP) 1 mg tablet Take 1 tablet by mouth three times daily. 270 tablet 1 10/18/2022 05/13/2023 Discontinued Comment on above: Take one tablet in a n evening for 2 weeks then go to two in the evening. Take 1 tablet by gulshan th three times daily. rosuvastatin calcium 5 mg oral tablet (20 sources) HMG-CoA Reductase Inhibitor Start: 7 End: 2 take 1 tablet by mouth once daily Rosuvastatin 5 MG tablet Discontinued 5 mg PO DAILY March 13, 2017 12:00am June 15, 2022 8:19am Comment on above: Take 1 tablet by gulshan th daily at bedtime. Semaglutide (6 sources) Start: 5 End: 5 Semaglutide (Ozempic) 0.25 mg or 0.5 mg (2 mg/3 mL) pen injector Discontinued 0.5 mg SC February 20, 2025 3:08pm July 29, 2025 3:01pm Type 2 diabetes mellitus Type 2 diabetes mellitus without complications Start: 02-20-2025 Semaglutide (O zempic) 0.25 mg or 0.5 mg (2 mg/3 mL) pen injector Active 0.5 mg SC February 20, 2025 3:08pm Type 2 diabetes mellitus Type 2 diabetes mellitus without complications Start: 11-15-2024 End: 02-20-2025 Semaglutide (Ozempic) 0.25 m g or 0.5 mg (2 mg/3 mL) pen injector Discontinued 0.5 mg SC November 15, 2024 1:00am February 20, 2025 3:08pm tadalafil 20 mg oral tablet (20 sources) Phosphodiesterase 5 Inhibitor Start: 10-20-2021 End: 10-21-2021 take 1 tablet by mouth every twenty-four hours Tadalafil (Cialis) 20 mg tablet Discontinued 20 mg PO DAILY as needed October 20, 2021 1:00am October 21, 2021 12:41pm administer approximately 30min before sexual activity; do not use more than 1 dose per 24hrs Start: 05-20-2021 End: 05-13-2023 take 1 tablet by mouth once daily as needed Tadalafil (CIALIS) 20 mg tab(s) Take 1 tablet by mouth once daily. As needed 30 tablet 2 05/20/2021 05/13/2023 Discontinued Comment on above: Take 1 tablet by gulshan once daily. As needed Problems Active Problems Problem Classification Problem Date Documented Da te Episodic/Chronic Allergic reactions (5 sources) Urticaria; Translations: [Urticaria, unspecified] 06-02-2023 Episodic Anxiety disorders (20 sources) Anxiety; Translations: [Anxiety disorder, unspecified] Onset: 3 05-20-2021 Chronic Blindness and vision defects (8 sources) Visual impairment; Translations: [Unqualified visual loss, right eye, normal vision left eye] 02-11-2022 Chronic Cardiac dysrhythmias (20 sources) Supraventricular tachycardia; Translations: [Supraventricular tachycardia] Onset: 1 11-06-2021 Chronic Comment on above: AVNRT Cardiac dysrhythmias (8 sources) Palpitations - rapid; Translations: [Palpitations] 10-19-2022 Episodic Cataract (20 sources) Nuclear sclerotic cataract; Translations: [Age-related nuclear cataract, bilateral] Onset: 5 05-20-2021 Chronic Chronic kidney disease (20 sources) Chronic kidney disease stage 3A ; Translations: [Stage 3a chronic kidney disease (HCC)] Onset: 4 07-12-2024 Chronic Chronic kidney disease (2 sources) Chronic kidney disease; Translations: [Chronic kidney disease, stage 3a] Onset: 5 Diabetes mellitus with complications (20 sources) Type 2 diabetes mellitus; Translations: [Type 2 diabetes mellitus with diabetic chronic kidney disease] Onset: 7 Resolved: 9 Chronic Diabetes mellitus without complication (17 sources) Type 2 diabetes mellitus without complications; Translations: [Type 2 diabetes mellitus] Onset: 8 10-20-2021 Chronic Diabetes mellitus without complication (1 source) Diabetes mellitus without complication; Translations: [Controlled type 2 diabetes mellitus with stage 3 chronic kidney disease, without long-term current use of insulin ([facility])] Onset: 5 Disorders of lipid metabolism (20 sources) Mixed hyperlipidemia; Translations: [Mixed hyperlipidemia] Onset: 3 05-20-2021 Chronic Diverticulosis and diverticulitis (1 source) Diverticular disease; Translations: [Diverticulosis of intestine, part unspecified, without perforation or abscess without bleeding] Chronic Esophageal disorders (20 sources) Gastro-esophageal reflux disease without esophagitis; 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] Onset: 6 Resolved: 8 05-20-2021 Chronic Esophageal disorders (1 source) Esophageal disorders; Translations: [Gastroesophageal reflux disease with esophagitis without hemorrhage] Onset: 1 Essential hypertension (20 sources) Essential (primary) hypertension; Translations: [Benign essential hypertension] Onset: 6 05-20-2021 Chronic Gastritis and duodenitis (1 source) Chronic superficial gastritis; Translations: [Chronic superficial gastritis without bleeding] Chronic Genitourinary symptoms and ill-defined conditions (20 sources) Blood in urine; Translations: [Hematuria, unspecified] Onset: 9 Resolved: 9 12-17-2018 Episodic Hepatitis (20 sources) Steatohepatitis; Translations: [Nonalcoholic steatohepatitis (MCKEON)] Onset: 4 10-17-2024 Chronic Inflammation; infection of eye (except that caused by tuberculosis or sexually transmitteddisease) (20 sources) Chronic allergic conjunctivitis; Translations: [Other chronic allergic conjunctivitis] Onset: 5 Resolved: 8 08-17-2018 Chronic Inflammation; infection of eye (except that caused by tuberculosis or sexually transmitteddisease) (1 source) Conjunctivitis of left eye; Translations: [Unspecified conjunctivitis] Episodic Malaise and fatigue (20 sources) Fatigue; Translations: [Other fatigue] Onset: 3 Episodic Melanomas of skin (20 sources) Malignant melanoma of trunk; Translations: [Malignant melanoma of other part of trunk] Onset: 0 05-20-2021 Chronic Melanomas of skin (1 source) H/O Malignant melanoma; Translations: [Personal history of malignant melanoma of skin] Episodic Miscellaneous mental health disorders (20 sources) Chronic insomnia; Translations: [Psychophysiologic insomnia] Onset: 9 05-20-2021 Chronic Osteoarthritis (4 sources) Arthritis of joint of toe; Translations: [Primary osteoarthritis, unspecified ankle and foot] Onset: 5 01-29-2025 Chronic Other and unspecified benign neoplasm (3 sources) History of polyp of colon; Translations: [Personal history of colonic polyps] Episodic Other connective tissue disease (1 source) Pain in both feet; Translations: [Pain in right foot] Episodic Other connective tissue disease (2 sources) Dupuytren's disease of palm; Translations: [Palmar fascial fibromatosis [Dupuytren]] 08-22-2023 Episodic Other connective tissue disease (1 source) Bursitis of right foot; Translations: [Other enthesopathy of right foot and ankle] 05-27-2025 Episodic Other connective tissue disease (1 source) Other enthesopathy of right foot and ankle; Translations: [Bursitis of right foot] Onset: 5 Episodic Other diseases of veins and lymphatics (1 source) Vascular insufficiency; Translations: [Venous insufficiency (chronic) (peripheral)] 06-07-2024 Episodic Other disorders of stomach and duodenum (4 sources) Lesion of stomach; Translations: [Other diseases of stomach and duodenum] 11-27-2024 Episodic Other ear and sense organ disorders (1 source) Impacted cerumen in left ear; Translations: [Impacted cerumen, left ear] 04-12-2024 Episodic Other eye disorders (20 sources) Vitreous syneresis; Translations: [Other vitreous opacities, bilateral] Onset: 5 05-20-2021 Chronic Other eye disorders (20 sources) Posterior vitreous detachment of left eye; Translations: [Vitreous degeneration, left eye] Onset: 6 05-20-2021 Chronic Other eye disorders (20 sources) Posterior vitreous detachment of right eye; Translations: [Vitreous degeneration, right eye] Onset: 7 05-20-2021 Chronic Other eye disorders (1 source) Inflammatory disorder of the eye; Translations: [Other specified disorders of eye and adnexa] Episodic Other eye disorders (1 source) Disorder of eye; Translations: [Unspecified disorder of eye and adnexa] 08-19-2023 Episodic Other gastrointestinal disorders (20 sources) Irritable bowel syndrome; Translations: [Mixed irritable bowel syndrome] Onset: 1 07-31-2021 Chronic Other gastrointestinal disorders (1 source) Diarrhea; Translations: [Diarrhea, unspecified] Episodic Other gastrointestinal disorders (3 sources) Altered bowel function; Translations: [Change in bowel habit] 09-24-2024 Episodic Other liver diseases (20 sources) Liver cyst; Translations: [Other specified diseases of liver] Onset: 1 08-10-2021 Chronic Other liver diseases (5 sources) Fatty (change of) liver, not elsewhere classified; Translations: [Metabolic dysfunction-associated steatotic liver disease (MASLD)] Onset: 5 11-27-2024 Chronic Other liver diseases (3 sources) Steatosis of liver; Translations: [Fatty (change of) liver, not elsewhere classified] 09-24-2024 Chronic Other liver diseases (1 source) Other specified diseases of liver; Translations: [Other specified diseases of liver] Onset: 5 Chronic Other lower respiratory disease (1 source) Snoring; Translations: [Snoring] Episodic Other lower respiratory disease (1 source) Cough; Translations: [Acute cough] 04-01-2025 Episodic Other male genital disorders (20 sources) Male erectile dysfunction, unspecified; Translations: [Impotence of organic origin] Onset: 1 05-20-2021 Chronic Other male genital disorders (2 sources) Secondary erectile dysfunction; Translations: [Male erectile dysfunction, unspecified] Chronic Other male genital disorders (20 sources) H/O: male genital disorder; Translations: [Personal history of other diseases of male genital organs] Episodic Other male genital disorders (1 source) Right testicular pain; Translations: [Right testicular pain] Onset: 3 Episodic Other nervous system disorders (5 sources) Neuropathy; Translations: [Polyneuropathy, unspecified] 01-28-2025 Chronic Other nervous system disorders (2 sources) Paresthesia of foot ; Translations: [Other disturbances of skin sensation] Episodic Other nutritional; endocrine; and metabolic disorders (1 source) Hypercalcemia; Translations: [Hypercalcemia] 01-17-2025 Chronic Other nutritional; endocrine; and metabolic disorders (1 source) Hypercalcemia; Translations: [Hypercalcemia] Onset: 5 Chronic Other nutritional; endocrine; and metabolic disorders (8 sources) H/O: diabetes mellitus; Translations: [Personal history of other endocrine, nutritional and metabolic disease] 02-11-2022 Episodic Other nutritional; endocrine; and metabolic disorders (8 sources) Overweight; Translations: [Overweight] 01-28-2025 Episodic Other skin disorders (1 source) Scar of skin; Translations: [Scar conditions and fibrosis of skin] 05-02-2024 Episodic Other upper respiratory disease (2 sources) Seasonal allergic rhinitis; Translations: [Other allergic rhinitis] 08-31-2024 Chronic Other upper respiratory disease (1 source) Other allergic rhinitis; Translations: [Seasonal allergic rhinitis due to other allergic trigger] Onset: 5 Chronic Other upper respiratory disease (1 source) Respiratory tract congestion; Translations: [Nasal congestion] Episodic Other upper respiratory disease (1 source) Congestion of nasal sinus; Translations: [Nasal congestion] Episodic Other upper respiratory disease (1 source) Maxillary sinus pain; Translations: [Other specified disorders of nose and nasal sinuses] 09-27-2023 Episodic Other upper respiratory infections (3 sources) Chronic sinusitis; Translations: [Chronic sinusitis, unspecified] Onset: 5 04-12-2024 Chronic Otitis media and related conditions (1 source) Dysfunction of bilateral eustachian tubes; Translations: [Unspecified Eustachian tube disorder, bilateral] 08-31-2024 Episodic Poisoning by nonmedicinal substances (9 sources) Bee sting-induced anaphylaxis; Translations: [Toxic effect of venom of bees, accidental (unintentional), initial encounter] 06-02-2023 Episodic Residual codes; unclassified (1 source) Hypersomnia; Translations: [Hypersomnia, unspecified] Chronic Retinal detachments; defects; vascular occlusion; and retinopathy (20 sources) Drusen of retina of bilateral eyes; Translations: [Drusen (degenerative) of macula, bilateral] Onset: 5 05-20-2021 Chronic Skin and subcutaneous tissue infections (1 source) Infection of skin; Translations: [Local infection of the skin and subcutaneous tissue, unspecified] Episodic Spondylosis; intervertebral disc disorders; other back problems (20 sources) Prolapsed lumbar intervertebral disc; Translations: [Other intervertebral disc displacement, lumbar region] Onset: 3 05-20-2021 Chronic Superficial injury; contusion (2 sources) Contusion of left lesser toe; Translations: [Contusion of left lesser toe(s) without damage to nail, initial encounter] Onset: 5 05-27-2025 Episodic Unclassified (2 sources) senior living (current) use of oral hypoglycemic drugs; Translations: [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] Onset: 8 Unclassified (1 source) Acute cough; Translations: [Acute cough] Onset: 5 Past or Other Problems Problem Classification Problem Date Documented Da te Episodic/Chronic Abdominal pain (20 sources) Right upper quadrant pain; Translations: [Right upper quadrant pain] Onset: 07-31-2021 07-31-2021 Episodic Administrative/social admission (20 sources) Advance directive discussed with patient; Translations: [Other specified counseling] Onset: 10-13-2022 Episodic Calculus of urinary tract (2 sources) Personal history of urinary calculi; Translations: [Personal history of urinary calculi] Onset: 12-23-2017 Episodic Deficiency and other anemia (20 sources) Iron deficiency anemia; Translations: [Iron deficiency anemia, unspecified] Onset: 06-21-2020 05-20-2021 Episodic Deficiency and other anemia (1 source) Iron deficiency anemia, unspecified; Translations: [Iron deficiency anemia, unspecified iron deficiency anemia type] Onset: 05-20-2021 Episodic Immunizations and screening for infectious disease (2 sources) Vaccination needed; Translations: [Encounter for immunization] Onset: 03-19-2025 01-16-2025 Episodic Other aftercare (20 sources) Patient encounter status; Translations: [Other 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 (current) drug therapy] Onset: 08-23-2022 Episodic Other aftercare (1 source) Other mcc (current) drug therapy; Translations: [Medication management] Onset: 08-23-2022 Episodic Other connective tissue disease (4 sources) Trigger finger, left ring finger; Translations: [Palmar fascial fibromatosis [Dupuytren]] Onset: 12-23-2017 Episodic Other connective tissue disease (20 sources) Cramp in lower limb; Translations: [Cramp and spasm] Onset: 01-30-2018 05-20-2021 Episodic Other connective tissue disease (20 sources) Pain in bilateral legs; Translations: [Pain in right leg] Onset: 10-13-2022 Episodic Other connective tissue disease (20 sources) Trochanteric bursitis; Translations: [Trochanteric bursitis, right hip] Onset: 01-10-2023 Resolved: 04-01-2023 Episodic Other connective tissue disease (20 sources) Muscle weakness of limb; Translations: [Muscle weakness (generalized)] Onset: 01-10-2023 Resolved: 04-01-2023 Episodic Other connective tissue disease (20 sources) Triggering of digit; Translations: [Trigger finger, right ring finger] Onset: 08-25-2017 Resolved: 08-17-2018 08-22-2023 Episodic Other connective tissue disease (20 sources) Dupuytren's contracture; Translations: [Palmar fascial fibromatosis [Dupuytren]] Onset: 08-25-2017 Resolved: 08-17-2018 08-17-2018 Episodic Other diseases of kidney and ureters (20 sources) Cyst of kidney; Translations: [Cyst of kidney, acquired] Onset: 08-10-2021 08-10-2021 Episodic Other disorders of stomach and duodenum (1 source) Other diseases of stomach and duodenum; Translations: [Other diseases of stomach and duodenum] Onset: 12-17-2024 Episodic Other ear and sense organ disorders (20 sources) Bilateral tinnitus; Translations: [Tinnitus, bilateral] Onset: 12-30-2023 12-30-2023 Episodic Other gastrointestinal disorders (2 sources) Change in bowel habit; Translations: [Change in bowel habit] Onset: 09-24-2024 Episodic Other infections; including parasitic (20 sources) Personal history of other infectious and parasitic diseases; Translations: [History of COVID-19] Onset: 08-03-2021 08-03-2021 Episodic Other non-traumatic joint disorders (20 sources) Hip pain; Translations: [Pain in right hip] Onset: 01-21-2023 01-21-2023 Episodic Other screening for suspected conditions (not mental disorders or infectious disease) (20 sources) Decreased testosterone level ; Translations: [Other specified abnormal findings of blood chemistry] Onset: 06-21-2020 05-20-2021 Episodic Other skin disorders (20 sources) Actinic keratosis; Translations: [Actinic keratosis] Onset: 05-20-2021 05-20-2021 Episodic Other skin disorders (20 sources) Foot callus; Translations: [Corns and callosities] Onset: 09-22-2023 08-16-2023 Episodic Other skin disorders (1 source) Corns and callosities; Translations: [Callus of foot] Onset: 09-22-2023 Episodic Other upper respiratory infections (7 sources) Acute upper respiratory infection; Translations: [Acute upper respiratory infection, unspecified] Onset: 04-01-2025 Episodic Residual codes; unclassified (20 sources) Reduced libido; Translations: [Decreased libido] Onset: 01-30-2018 05-20-2021 Episodic Residual codes; unclassified (20 sources) Active living will ; Translations: [Other specified health status] Onset: 10-13-2022 Episodic Screening or history of mental health and substance abuse (20 sources) Personal history of nicotine dependence; Translations: [H/O: depression] Onset: 12-23-2017 05-20-2021 Episodic Spondylosis; intervertebral disc disorders; other back problems (20 sources) Lumbar radiculopathy; Translations: [Radiculopathy, lumbar region] Onset: 02-24-2019 Resolved: 04-01-2023 05-20-2021 Episodic Viral infection (8 sources) COVID-19; Translations: [Severe acute respiratory syndrome coronavirus 2 (SARS-CoV-2) detected] Onset: 07-06-2021 10-19-2022 Episodic Results Test Name Value Interpretation Reference Range Facil ity CNOVon 08-05-2025 CNOV Office Visit (FAMPWS ) DAR ROSE ([id number]) 1955 M Date Time Provider Department 08/05/25 10:20 AM [facility] During your visit today, we recorded the following information about you: Pulse Respiration Blood pressure Weight 66/minute 16/minute 137/78 84.9 kg Cruz Prado MD 08/05/2025 5:06 PM Signed Chief Complaint Patient presents with: F/U 6 Month HPI Dar Rose is a 69 year old male who presents here today for a routine follow up. Patient with hx of HTN, hyperlipidemia, SVT, DM2, CKD, Matthew's melanoma, and those as below. 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 He also notes occasional mild pedal edema, which he describes as sock johnson that resolve by morning. He denies any recent fevers, lumps or swelling in the neck, wheezing, dyspnea, hemoptysis, chest pain, palpitations, or leg swelling. Reagan is currently taking Nexium for heartburn, which is well-controlled. He is also on Neurontin for neuropathy, which he takes at night. While he does not believe it resolves his neuropathy, he notes some improvement. He uses compression sleeves on his feet at night for additional relief. He reports that his feet are very touchy and cannot be covered by blankets due to neuropathy. Reagan is on trazodone for sleep, which he reports helps, but he still experiences poor sleep quality. He has not been tested for sleep apnea and is not currently interested in a sleep study. Reagan received cataract surgery and reports significant improvement in vision, stating he can see 100% better out of the affected eye. However, he continues to experience floaters, which he finds bothersome. He denies frequent headaches, syncope, seizures, or tremors. Reagan is on Ozempic, which was recently increased to 1 mg. He reports constipation as a side effect, for which he has been using Miralax with good effect. He denies any other adverse effects from Ozempic. He also reports occasional dysuria, which he attributes to fatigue, and notes frequent urination. He denies hematuria. Reagan experiences occasional symptoms of hypoglycemia and carries glucose tablets for management. He denies frequent headaches, syncope, seizures, or tremors. He also reports a lack of energy, which he attributes to multiple episodes of COVID-19, having had it three times. Reagan has a history of prostate removal 6-7 years ago for BPH and denies any current issues related to it. He also reports a recent insect bite, for which he applied Benadryl cream. He notes a history of anaphylactic reactions to bee stings but not to wasp stings. Past medical history, appointments, medications, allergies reviewed. 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 07/06/2018 Basal cell carcinoma 12/02/2021 Bilateral hip pain 01/21/2023 BPH (benign prostatic hyperplasia) s/p removal Callus of foot 09/22/2023 Seeing podiatry Chronic insomnia 02/24/2019 Controlled type 2 diabetes mellitus with stage 3 chronic kidney disease, without long-term current use of insulin (HCC) 02/24/2019 Decreased libido 01/30/2018 Degenerative retinal drusen of both eyes 05/30/2015 Diabetic eye exam (HCC) 03/18/2022 Last done 01/05/22 Non-Proliferative Diabetic Retinopathy mild [facility] (erectile dysfunction) 05/20/2021 Essential hypertension, benign 06/06/2006 Ex-smoker 05/20/2021 Started age 16, up to 2 PPD quit age 21 Fatigue 08/05/2025 Gastroesophageal reflux disease with esophagitis without hemorrhage 05/20/2021 Herniated lumbar intervertebral disc History of BPH s/p removal History of depression Iron deficiency anemia 06/21/2020 Irritable bowel syndrome with both constipation and diarrhea 07/31/2021 Leg cramps 01/30/2018 Living will on file at physician's office 10/13/2022 DPA: catherine () Low testosterone in male 06/21/2020 Lumbar radiculopathy 02/24/2019 Lumbar spinal stenosis 05/18/2023 MRI 02/2023- [facility] Malignant melanoma of torso excluding breast (HCC) 02/11/2020 Metabolic dysfunction-associate d steatohepatitis (MASH) 10/17/2024 US with elstography 09/2024 was F2-F3, seeing ? 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 Normal [facility] 08-05-2025 CNPN Telephone (INTMWS) DAR ROSE ([id number]) 1955 M Date Time Provider Department 08/05/25 [facility] PRAD[facility] During your visit today, we recorded the following information about you: Patricia Johnson LPN 08/05/2025 3:48 PM Signed Thank you for creating a prior authorization request using [employer]. The prior authorization department will contact you if additional information is needed. Once a decision is made you will be notified of the decision. You can check the status of your request using the Check Status link. Please note down (Prior Auth EOC ID) to check status. Prior Authorization request details: Prior Auth (EOC) ID: [id number] Drug/Service Name: ESOMEPRAZOLE MAG DR 40 MG CAP Patient: DAR ROSE Date Requested: 08/05/2025 3:39:22 PM MemberID: [id number] : 1955 Unable to complete PA on covermymeds. Notes to complete on rxb promptpa Natasha Saunders MA 08/08/2025 8:19 AM Signed Approval received via fax. Approved from 08/06/25 - 08/05/26. Has been scanned into pt's chart. Natasha Saunders MA Allergies As of Date: 08/05/2025 Noted Allergy Reaction BEE STING 09/29/2011 10 - Anaphylaxis AMITRIPTYLINE 12/30/2017 5 - Intolerance TRAMADOL 08/17/2018 11 - Vomiting Comments: Pt reports that he can take this medication, does not need to have listed Date Reviewed: 08/05/2025 Reviewed by: Cruz Prado MD - Fully Assessed Reason for Visit: Insurance Authorization [[id number]] Prescriptions as of 08/08/2025 - esomeprazole (NEXIUM) 40 mg capsule Take 1 capsule by mouth two times a day. - atorvastatin (LIPITOR) 10 mg tablet Take 1 tablet by mouth daily at bedtime. For cholesterol. - dicyclomine (BENTYL) 10 mg capsule Take 1 capsule by mouth before meals and at bedtime. PRN - EPINEPHrine (EPIPEN) 0.3 mg/0.3 mL auto-injector Inject 0.3 mL intramuscularly as needed. - losartan (COZAAR) 100 mg tablet Take 1 tablet by mouth once daily. - semaglutide (OZEMPIC) 1 mg/dose (4 mg/3 mL) pen Inject 1 mg subcutaneously one time a week. Per Curly Mireles - traZODone (DESYREL) 50 mg tablet Take 1 tablet by mouth daily at bedtime. - gabapentin (NEURONTIN) 100 mg capsule Take 2 capsules by mouth daily at bedtime for 180 days. Take gabapentin 100 mg in the evening before bed. - sodium chloride (SALINE NASAL) 0.65 % nasal spray Use 1 spray in the nose two times a day. - azelastine 0.1% nasal spray Use 1 spray in each nostril two times a day. - fluticasone (FLONASE ALLERGY RELIEF) 50 mcg/actuation nasal spray Use 1 spray in each nostril two times a day. - ferrous sulfate 325 mg (65 mg iron) tablet Take 1 tablet by mouth every other day. - blood sugar diagnostic (BLOOD GLUCOSE TEST) test strip Test blood sugar(s) 2 times daily. Dx: Other DM Code E11.22 Insulin: No - Lancets Test blood sugar(s) 2 times daily. Dx: Other DM Code E11.22 Insulin: No - docusate sodium (COLACE) 100 mg capsule Take 1 capsule by mouth two times a day as needed for constipation. - carvedilol (COREG) 25 mg tablet Take 1 tablet by mouth twice daily. Per Cardio, Dr. Schneider - amLODIPine (NORVASC) 10 mg tablet Take 1 tablet by mouth once daily. Per CardioDr. Schneider Problem List As Of Date 08/05/2025 Noted Resolved Essential hypertension, benign [I10] 06/06/2006 Health maintenance examination [Z00.00] 09/29/2011 02/15/2013 Anxiety [F41.9] 11/16/2012 Herniated lumbar intervertebral disc [M51.26] Mixed hyperlipidemia [E78.2] 03/20/2013 Nuclear sclerotic cataract of both eyes [H25.13]05/30/2015 Other chronic allergic conjunctivitis [H10.45] 05/30/2015 08/17/2018 Degenerative retinal drusen of both eyes [H35.3*05/30/2015 Vitreous syneresis of both eyes [H43.393] 05/30/2015 Posterior vitreous detachment of left eye [H43.*08/31/2016 Senile nuclear sclerosis [H25.10] 05/17/2017 Posterior vitreous detachment of right eye [H43*09/09/2017 Type 2 diabetes mellitus with retinopathy, with*09/09/2017 Senile nuclear sclerosis, bilateral [H25.13] 09/09/2017 Peripheral retinal degeneration, paving stone, *09/09/2017 Matthew's esophagus [K22.70] 04/01/2016 08/28/2018 Leg cramps [R25.2] 01/30/2018 Uncontrolled type 2 diabetes mellitus with stag*01/30/2018 02/24/2019 Decreased libido [R68.82] 01/30/2018 Dupuytren contracture [M72.0] 08/25/2017 08/17/2018 Trigger middle finger of right hand [M65.331] 08/25/2017 08/17/2018 Trigger ring finger of left hand [M65.342] 08/25/2017 08/17/2018 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 Normal [facility] 08-02-2025 [facility] ([id number]) 1955 M Date Time Provider Department 08/02/25 [facility] During your visit today, we recorded the following information about you: An Renee 08/02/2025 8:44 AM Signed Patient requesting the following medication that is : lisinopril (ZESTRIL) 40 mg tablet Patient last seen: 03-19-25 Future visit scheduled: no PHARMACY: [facility]. Cruz Prado MD 08/05/2025 3:01 PM Signed Let patient know he is no longer on lisinopril he is on losartan instead and it was refilled on 08/02/2025. Natasha Saunders MA 08/07/2025 2:13 PM Addendum Call to pt received VM, didn't LM. Sent pt a [employer] message notifying him of message below from PCP. Pt also seen in office on 08/05/25. Natasha Saunders MA Allergies As of Date: 08/02/2025 Noted Allergy Reaction BEE STING 09/29/2011 10 - Anaphylaxis AMITRIPTYLINE 12/30/2017 5 - Intolerance TRAMADOL 08/17/2018 11 - Vomiting Date Reviewed: 05/27/2025 Reviewed by: Izabela Garcia RN - Fully Assessed Reason for Visit: requesting medication that is [Other] Prescriptions as of 08/07/2025 - esomeprazole (NEXIUM) 40 mg capsule Take 1 capsule by mouth two times a day. - atorvastatin (LIPITOR) 10 mg tablet Take 1 tablet by mouth daily at bedtime. For cholesterol. - dicyclomine (BENTYL) 10 mg capsule Take 1 capsule by mouth before meals and at bedtime. PRN - EPINEPHrine (EPIPEN) 0.3 mg/0.3 mL auto-injector Inject 0.3 mL intramuscularly as needed. - losartan (COZAAR) 100 mg tablet Take 1 tablet by mouth once daily. - semaglutide (OZEMPIC) 1 mg/dose (4 mg/3 mL) pen Inject 1 mg subcutaneously one time a week. Per Curly Mireles - traZODone (DESYREL) 50 mg tablet Take 1 tablet by mouth daily at bedtime. - gabapentin (NEURONTIN) 100 mg capsule Take 2 capsules by mouth daily at bedtime for 180 days. Take gabapentin 100 mg in the evening before bed. - sodium chloride (SALINE NASAL) 0.65 % nasal spray Use 1 spray in the nose two times a day. - azelastine 0.1% nasal spray Use 1 spray in each nostril two times a day. - fluticasone (FLONASE ALLERGY RELIEF) 50 mcg/actuation nasal spray Use 1 spray in each nostril two times a day. - ferrous sulfate 325 mg (65 mg iron) tablet Take 1 tablet by mouth every other day. - blood sugar diagnostic (BLOOD GLUCOSE TEST) test strip Test blood sugar(s) 2 times daily. Dx: Other DM Code E11.22 Insulin: No - Lancets Test blood sugar(s) 2 times daily. Dx: Other DM Code E11.22 Insulin: No - docusate sodium (COLACE) 100 mg capsule Take 1 capsule by mouth two times a day as needed for constipation. - carvedilol (COREG) 25 mg tablet Take 1 tablet by mouth twice daily. Per Cardio, Dr. Schneider - amLODIPine (NORVASC) 10 mg tablet Take 1 tablet by mouth once daily. Per Cardio, Dr. Schneider Problem List As Of Date 08/02/2025 Noted Resolved Essential hypertension, benign [I10] 06/06/2006 Health maintenance examination [Z00.00] 09/29/2011 02/15/2013 Anxiety [F41.9] 11/16/2012 Herniated lumbar intervertebral disc [M51.26] Mixed hyperlipidemia [E78.2] 03/20/2013 Nuclear sclerotic cataract of both eyes [H25.13]05/30/2015 Other chronic allergic conjunctivitis [H10.45] 05/30/2015 08/17/2018 Degenerative retinal drusen of both eyes [H35.3*05/30/2015 Vitreous syneresis of both eyes [H43.393] 05/30/2015 Posterior vitreous detachment of left eye [H43.*08/31/2016 Senile nuclear sclerosis [H25.10] 05/17/2017 Posterior vitreous detachment of right eye [H43*09/09/2017 Type 2 diabetes mellitus with retinopathy, with*09/09/2017 Senile nuclear sclerosis, bilateral [H25.13] 09/09/2017 Peripheral retinal degeneration, paving stone, *09/09/2017 Matthew's esophagus [K22.70] 04/01/2016 08/28/2018 Leg cramps [R25.2] 01/30/2018 Uncontrolled type 2 diabetes mellitus with stag*01/30/2018 02/24/2019 Decreased libido [R68.82] 01/30/2018 Dupuytren contracture [M72.0] 08/25/2017 08/17/2018 Trigger middle finger of right hand [M65.331] 08/25/2017 08/17/2018 Trigger ring finger of left hand [M65.342] 08/25/2017 08/17/2018 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 [K22.70] 07/06/2018 Hematuria [R31.9] 12/15/2018 12/16/2018 Controlled type 2 diabetes mellitus with stage *02/24/2019 Lumbar radiculopathy [M54.16] 02/24/2019 Chronic insomnia [F51.04] 02/24/2019 Malignant melanoma of torso excluding breast (H*02/11/2020 Low testosterone in male [R79.89] 06/21/2020 Iron deficiency anemia [D50.9] 06/21/2020 History of depression [Z86.59] Ex-smoker [Z87.891] 05/20/2021 Gastroesophageal reflux disease with esophagiti*05/20/2021 ED (erectile dysfunction) [N52.9] 05/20/2021 SVT (supraventricular tachycardia) (HCC) [I47.1*05/20/2021 AK (actinic keratosis) [L57.0] 05/20/2021 Irritable bowel syndrome with both constipation*07/31/20 RUQ abdominal pain [R10.11] 07/31/2021 History of COVID-1 (more content not included)... Normal [facility] CBC W Auto Differential pane l (Bld)on 07-30-2025 Basophils (Bld) [#/Vol] 0.06 10*3/uL Normal <0.11 [facility] Comment on above: Order Comment: Speci men Type: BLOOD SPECIMENOrdering Facility: [facility] Address: [address] [place] [address] Performed By: #### 5 7021-8 ####[facility] [id number] [place] [address] [place] Basophils/100 WBC (Bld) 0.8 % Normal [facility] Comment on above: Order Comment: Speci men Type: BLOOD SPECIMENOrdering Facility: [facility] Address: [address] [place] [address] Performed By: #### 5 7021-8 ####[facility] [id number] [address], [place] [address] [place] Differential cell count method Nom (Bld) Auto Normal [facility] Comment on above: Order Comment: Speci men Type: BLOOD SPECIMENOrdering Facility: [facility] Address: [address] [place] [address] Performed By: #### 5 7021-8 ####[facility] [id number] [place] [address] [place] Eosinophils (Bld) [#/Vol] 0.21 10*3/uL Normal <0.46 [facility] Comment on above: Order Comment: Speci men Type: BLOOD SPECIMENOrdering Facility: [facility] Address: [address] [place] [address] Performed By: #### 5 7021-8 ####[facility] [id number] [place] [address] [place] Eosinophils/100 WBC (Bld) 2.6 % Normal [facility] Comment on above: Order Comment: Speci men Type: BLOOD SPECIMENOrdering Facility: [facility] Address: [address] [place] [address] Performed By: #### 5 7021-8 ####[facility] [id number] [place] [address] [place] Erythrocyte distribution width (RBC) [Ratio] 13.1 % Normal 11.5-15.0 [facility] Comment on above: Order Comment: Speci men Type: BLOOD SPECIMENOrdering Facility: [facility] Address: [address] [place] [address] Performed By: #### 5 7021-8 ####[facility] [id number] [place] [id number] [place] Hematocrit (Bld) [Volume fraction] 41.2 % Normal 39.0-51.0 [facility] Comment on above: Order Comment: Speci men Type: BLOOD SPECIMENOrdering Facility: [facility] Address: [address] [place] [address] Performed By: #### 5 7021-8 ####[facility] [id number] [place] [address] [place] Hemoglobin (Bld) [Mass/Vol] 13.7 g/dL Normal 13.0-17.0 [facility] Comment on above: Order Comment: Speci men Type: BLOOD SPECIMENOrdering Facility: [facility] Address: [address] [place] [address] Performed By: #### 5 7021-8 ####[facility] [id number] [place] [address] [place] Immature granulocytes (Bld) [#/Vol] 0.03 10*3/uL Normal <0.10 [facility] Comment on above: Order Comment: Speci men Type: BLOOD SPECIMENOrdering Facility: [facility] Address: [address] [place] [address] Performed By: #### 5 7021-8 ####[facility] [id number] [place] [address] [place] Immature granulocytes/100 WBC (Bld) 0.4 % Normal [facility] Comment on above: Order Comment: Speci men Type: BLOOD SPECIMENOrdering Facility: [facility] Address: [address] [place] [address] Performed By: #### 5 7021-8 ####[facility] [id number] [place] [address] [place] Lymphocytes (Bld) [#/Vol] 1.10 10*3/uL Normal 1.00-4.00 [facility] Comment on above: Order Comment: Speci men Type: BLOOD SPECIMENOrdering Facility: [facility] Address: [address] [place] [address] Performed By: #### 5 7021-8 ####[facility] [id number] [place] [address] [place] Lymphocytes/100 WBC (Bld) 13.8 % Normal [facility] Comment on above: Order Comment: Speci men Type: BLOOD SPECIMENOrdering Facility: [facility] Address: [address] [place] [address] Performed By: #### 5 7021-8 ####[facility] [id number] [place] [address] [place] MCH (RBC) [Entitic mass] 30.0 pg Normal 26.0-34.0 [facility] Comment on above: Order Comment: Speci men Type: BLOOD SPECIMENOrdering Facility: [facility] Address: [address] [place] [address] Performed By: #### 5 7021-8 ####[facility] [id number] [place] [address] [place] MCHC (RBC) [Mass/Vol] 33.3 g/dL Normal 30.5-36.0 [facility] Comment on above: Order Comment: Speci men Type: BLOOD SPECIMENOrdering Facility: [facility] Address: [address] [place] [address] Performed By: #### 5 7021-8 ####[facility] [id number] [place] [address] [place] MCV (RBC) [Entitic vol] 90.2 fL Normal 80.0-100.0 [facility] Comment on above: Order Comment: Speci men Type: BLOOD SPECIMENOrdering Facility: [facility] Address: [address] [place] [address] Performed By: #### 5 7021-8 ####[facility] [id number] [place] [address] [place] Monocytes (Bld) [#/Vol] 0.69 10*3/uL Normal <0.87 [facility] Comment on above: Order Comment: Speci men Type: BLOOD SPECIMENOrdering Facility: [facility] Address: [address] [place] [address] Performed By: #### 5 7021-8 ####[facility] [id number] [address] [address] [place] Monocytes/100 WBC (Bld) 8.6 % Normal [facility] Comment on above: Order Comment: Speci men Type: BLOOD SPECIMENOrdering Facility: [facility] Address: [address] [place] [address] Performed By: #### 5 7021-8 ####[facility] [id number] [address], [place] [address] [place] Neutrophils (Bld) [#/Vol] 5.90 10*3/uL Normal 1.45-7.50 [facility] Comment on above: Order Comment: Speci men Type: BLOOD SPECIMENOrdering Facility: [facility] Address: [address] [place] [address] Performed By: #### 5 7021-8 ####[facility] [id number] [place] [id number] [place] Neutrophils/100 WBC (Bld) 73.8 % Normal [facility] Comment on above: Order Comment: Speci men Type: BLOOD SPECIMENOrdering Facility: [facility] Address: [address] [place] [address] Performed By: #### 5 7021-8 ####[facility] [id number] [place] [id number] [place] Nucleated RBC (Bld) [#/Vol] 10*3/uL Normal <0.01 [facility] Comment on above: Order Comment: Speci men Type: BLOOD SPECIMENOrdering Facility: [facility] Address: [address] [place] [address] Performed By: #### 5 7021-8 ####[facility] [id number] [address], [place] [address] [place] Nucleated RBC/100 WBC (Bld) [Ratio] 0.0 /100 WBC Normal [facility] Comment on above: Order Comment: Speci men Type: BLOOD SPECIMENOrdering Facility: [facility] Address: [address] [place] [address] Performed By: #### 5 7021-8 ####[facility] [id number] [address], [place] [address] [place] Platelet mean volume (Bld) [Entitic vol] 10.5 fL Normal 9.0-12.7 [facility] Comment on above: Order Comment: Speci men Type: BLOOD SPECIMENOrdering Facility: [facility] Address: [address] [place] [address] Performed By: #### 5 7021-8 ####[facility] [id number] [place] [address] [place] Platelets (Bld) [#/Vol] 243 10*3/uL Normal 150-400 [facility] Comment on above: Order Comment: Speci men Type: BLOOD SPECIMENOrdering Facility: [facility] Address: [address] [place] [address] Performed By: #### 5 7021-8 ####[facility] [id number] [place] [address] [place] RBC (Bld) [#/Vol] 4.57 10*6/uL Normal 4.20-6.00 [facility] Comment on above: Order Comment: Speci men Type: BLOOD SPECIMENOrdering Facility: [facility] Address: [address] [place] [address] Performed By: #### 5 7021-8 ####[facility] [id number] [place] [id number] [place] WBC (Bld) [#/Vol] 7.99 10*3/uL Normal 3.70-11.00 [facility] Comment on above: Order Comment: Speci men Type: BLOOD SPECIMENOrdering Facility: [facility] Address: [address] [place] [address] Performed By: #### 5 7021-8 ####[facility] [id number] [place] [address] [place] Comprehensive metabolic 2000 panelon 07-30-2025 Albumin [Mass/Vol] 4.2 g/dL Normal 3.9-4.9 [facility] Comment on above: Order Comment: Speci men Type: BLOOD SPECIMENOrdering Facility: [facility] Address: [address] [place] [address] Performed By: #### 2 4323-8, LIPNF, 50846-4 ####[facility] [id number] [place] [address] [place] ALP [Catalytic activity/Vol] 68 U/L Normal 38-113 [facility] Comment on above: Order Comment: Speci men Type: BLOOD SPECIMENOrdering Facility: [facility] Address: [address] [place] [address] Performed By: #### 2 4323-8, LIPNF, 35661-3 ####[facility] [id number] [place] [address] [place] ALT [Catalytic activity/Vol] 26 U/L Normal 10-54 [facility] Comment on above: Order Comment: Speci men Type: BLOOD SPECIMENOrdering Facility: [facility] Address: [address] [place] [address] Performed By: #### 2 4323-8, LIPNF, 93386-4 ####[facility] [id number] [place] [id number] [place] Anion gap [Moles/Vol] 12 mmol/L Normal 8-15 [facility] Comment on above: Order Comment: Speci men Type: BLOOD SPECIMENOrdering Facility: [facility] Address: [address] [place] [address] Performed By: #### 2 4323-8, LIPNF, 89091-4 ####[facility] [id number] [place] [id number] [place] AST [Catalytic activity/Vol] 21 U/L Normal 14-40 [facility] Comment on above: Order Comment: Speci men Type: BLOOD SPECIMENOrdering Facility: [facility] Address: [address] [place] [address] Performed By: #### 2 4323-8, LIPNF, 40245-9 ####[facility] [id number] [place] [address] [place] Bilirubin [Mass/Vol] 0.4 mg/dL Normal 0.2-1.3 [facility] Comment on above: Order Comment: Speci men Type: BLOOD SPECIMENOrdering Facility: [facility] Address: [address] [place] [address] Performed By: #### 2 4323-8, LIPNF, 83403-7 ####[facility] [id number] [place] [id number] [place] Calcium [Mass/Vol] 9.3 mg/dL Normal 8.5-10.2 [facility] Comment on above: Order Comment: Speci men Type: BLOOD SPECIMENOrdering Facility: [facility] Address: [address] [place], [place] [address] Performed By: #### 2 4323-8, LIPNF, 95320-0 ####[facility] [id number] [place] [id number] [place] Chloride [Moles/Vol] 100 mmol/L Normal 98-107 [facility] Comment on above: Order Comment: Speci men Type: BLOOD SPECIMENOrdering Facility: [facility] Address: [address] [place] [address] Performed By: #### 2 4323-8, LIPNF, 84673-7 ####[facility] [id number] [place] [address] [place] CO2 [Moles/Vol] 24 mmol/L Normal 22-30 [facility] Comment on above: Order Comment: Speci men Type: BLOOD SPECIMENOrdering Facility: [facility] Address: [address] [place] [address] Performed By: #### 2 4323-8, LIPNF, 05362-0 ####[facility] [id number] [place] [address] [place] Creatinine [Mass/Vol] 1.66 mg/dL High 0.73-1.22 [facility] Comment on above: Order Comment: Speci men Type: BLOOD SPECIMENOrdering Facility: [facility] Address: [address] [place] [address] Performed By: #### 2 4323-8, LIPNF, 87689-7 ####[facility] [id number] [place] [address] [place] eGFRcr SerPlBld CKD-EPI 2020 44 mL/min/1.73m??? Low >=60 [facility] Comment on above: Order Comment: Speci men Type: BLOOD SPECIMENOrdering Facility: [facility] Address: [address] [place] [address] Result Comment: Rosalba mated Glomerular Filtration Rate (eGFR) is calculated using the 2020 CKD-EPI creatinine equation. This equation utilizes serum creatinine, sex, and age as parameters. The creatinine assay has traceable calibration to isotope dilution-mass spectrometry. Refer to KDIGO guidelines for clinical interpretation. In patients with unstable renal function, e.g. those with acute kidney injury, the eGFR may not accurately reflect actual GFR. Performed By: #### 2 4323-8, LIPNF, 64669-5 ####[facility] [id number] [place] [address] [place] Glucose [Mass/Vol] 160 mg/dL High 74-99 [facility] Comment on above: Order Comment: Speci men Type: BLOOD SPECIMENOrdering Facility: [facility] Address: [address] [place] [address] Result Comment: The [place] Diabetes Association (ADA) provides guidance for cutoff values for fasting glucose and random glucose. The ADA defines fasting as no caloric intake for at least 8 hours. Fasting plasma glucose results between 100 to 125 mg/dL indicate increased risk for diabetes (prediabetes). Fasting plasma glucose results greater than or equal to 126 mg/dL meet the criteria for diagnosis of diabetes. In the absence of unequivocal hyperglycemia, results should be confirmed by repeat testing. In a patient with classic symptoms of hyperglycemia or hyperglycemic crisis, random plasma glucose results greater than or equal to 200 mg/dL meet the criteria for diagnosis of diabetes. Reference: Standards of Medical Care in Diabetes 2016, [place] Diabetes Association. Diabetes Care. 2016.39(Suppl 1). Performed By: #### 2 4323-8, LIPNF, 74943-5 ####[facility] [id number] [place] [address] [place] Potassium [Moles/Vol] 4.6 mmol/L Normal 3.7-5.1 [facility] Comment on above: Order Comment: Speci men Type: BLOOD SPECIMENOrdering Facility: [facility] Address: [address] [place] [address] Performed By: #### 2 4323-8, LIPNF, 55787-5 ####[facility] [id number] [place] [address] [place] Protein [Mass/Vol] 6.5 g/dL Normal 6.3-8.0 [facility] Comment on above: Order Comment: Speci men Type: BLOOD SPECIMENOrdering Facility: [facility] Address: [address] [place] [address] Performed By: #### 2 4323-8, LIPNF, 15151-9 ####[facility] [id number] [address] [place] [address] [place] Sodium [Moles/Vol] 136 mmol/L Normal 136-144 [facility] Comment on above: Order Comment: Speci men Type: BLOOD SPECIMENOrdering Facility: [facility] Address: [address] [place] [address] Performed By: #### 2 4323-8, LIPCORNELIO, 43896-7 ####[facility] [id number] [address] [place] [address] [place] Urea nitrogen [Mass/Vol] 23 mg/dL Normal 9-24 [facility] Comment on above: Order Comment: Speci men Type: BLOOD SPECIMENOrdering Facility: [facility] Address: [address] [place] [address] Performed By: #### 2 4323-8, LIPCORNELIO, 84732-8 ####[facility] [id number] [address] [place] [address] [place] HbA1c (Bld)on 07-30-2025 Average glucose Estimated from glycated hemoglobin (Bld) [Mass/Vol] 123 mg/dL Normal [facility] Comment on above: Order Comment: Speci men Type: BLOOD SPECIMENOrdering Facility: [facility] Address: [address] [place] [address] Result Comment: eAG: (Estimated average glucose) is a calculated value from HgbA1c and is client care representative of the average blood glucose level in the last 2-3 month period. Performed By: #### 5 5454-3 ####[facility] [id number] [address] [address] [place] HbA1c (Bld) [Mass fraction] 5.9 % High 4.3-5.6 [facility] Comment on above: Order Comment: Speci men Type: BLOOD SPECIMENOrdering Facility: [facility] Address: [address] [place] [address] Result Comment: Amer [place] Diabetes Association guidelines indicate that patients with HgbA1c in the range 5.7-6.4% are at increased risk for development of diabetes, and intervention by lifestyle modification may be beneficial. HgbA1c greater or equal to 6.5% is considered diagnostic of diabetes. Performed By: #### 5 5454-3 ####[facility] [id number] [address] [address] [place] Iron and Iron binding capaci ty panelon 07-30-2025 Iron [Mass/Vol] 70 ug/dL Normal 41-186 [facility] Comment on above: Order Comment: Speci men Type: BLOOD SPECIMENOrdering Facility: [facility] Address: [address] [place] [address] Performed By: #### 2 4323-8, LIPNF, 23898-9 ####[facility] [id number] [place] [address] [place] [facility] Iron binding capacity [Mass/Vol] 310 ug/dL Normal 232-386 [facility] Comment on above: Order Comment: Speci men Type: BLOOD SPECIMENOrdering Facility: [facility] Address: [address] [place] [address] Performed By: #### 2 4323-8, LIPNF, 25104-3 ####[facility] [id number] [address] [address] [place] Iron/TIBC [Molar ratio] 22.6 % Normal 15.0-57.0 [facility] Comment on above: Order Comment: Speci men Type: BLOOD SPECIMENOrdering Facility: [facility] Address: [address] [place] [id number] Performed By: #### 2 4323-8, LIPNF, 80699-4 ####[facility] [id number] [address] [address] [place] LIPID PANEL, NONFASTINGon Cholesterol [Mass/Vol] 112 mg/dL Normal <200 [facility] Comment on above: Order Comment: Speci men Type: BLOOD SPECIMENOrdering Facility: [facility] Address: [address] [place] [address] Result Comment: <200 mg/dL, Desirable 200-239 mg/dL, Borderline high >239 mg/dL, High Performed By: #### 2 4323-8, LIPNF, 92573-8 ####[facility] [id number] [facility] [place] [id number], [place] [address] [place] HDL CHOLESTEROL, NF 33 mg/dL Low >39 [facility] Comment on above: Order Comment: Speci men Type: BLOOD SPECIMENOrdering Facility: [facility] Address: [address] [place] [address] Result Comment: 40-5 9 mg/dL, Acceptable >59 mg/dL, High: Negative risk factor for coronary heart disease <40 mg/dL, Low: Positive risk factor for coronary heart disease Performed By: #### 2 4323-8, LIPNF, 66604-4 ####[facility] [id number] [address], [facility] [place] LDL CHOLESTEROL CALCULATED, NF 55 mg/dL Normal <100 [facility] Comment on above: Order Comment: Speci men Type: BLOOD SPECIMENOrdering Facility: [facility] Address: [address] [place] [address] Result Comment: <100 mg/dL, Optimal 100-129 mg/dL, Near optimal/above optimal 130-159 mg/dL, Borderline high 160-189 mg/dL, High >189 mg/dL, Very high Secondary prevention optimal LDL Cholesterol levels are recommended to be <70 mg/dL LDL cholesterol is calculated using the Flowers-NIH equation. Performed By: #### 2 4323-8, LIPNF, 33503-1 ####[facility] [id number] [facility] [id number], [place] [address] [place] LDL/HDL RATIO, NF 1.67 mg/dL Normal <2.54 [facility] Comment on above: Order Comment: Speci men Type: BLOOD SPECIMENOrdering Facility: [facility] Address: [address] [place] [address] Result Comment: Denise benitez: 1. National Cholesterol Education Program ATP III Guideline At-A-Glance Quick Desk Reference: National Heart, Lung, and Blood Stearns. National Institutes of Health. 2001: NIH Publication No. 01-3305. 2. An International Atherosclerosis Society position paper: global recommendations for the management of dyslipidemia: executive summary, Atherosclerosis. 2014: 232(2):410-413. Performed By: #### 2 4323-8, LIPNF, 01797-9 ####[facility] [id number] [place] [address] [place] NON HDL CHOL, NF 79 mg/dL Normal <130 [facility] Comment on above: Order Comment: Speci men Type: BLOOD SPECIMENOrdering Facility: [facility] Address: [address] [place] [address] Result Comment: <130 mg/dL, Optimal 130-159 mg/dL, Near optimal/above optimal 160-189 mg/dL, Borderline high 190-219 mg/dL, High >219 mg/dL, Very high Secondary prevention optimal non HDL Cholesterol levels are recommended to be <100 mg/dL Performed By: #### 2 4323-8, LIPNF, 50397-9 ####[facility] [id number] [place] [address] [place] T CHOL/HDL RATIO NF 3.39 mg/dL Normal <5.10 [facility] Comment on above: Order Comment: Speci men Type: BLOOD SPECIMENOrdering Facility: [facility] Address: [address] [place] [address] Performed By: #### 2 4323-8, LIPNF, 11902-9 ####[facility] [id number] [place] [id number] [place] TRIGLYCERIDES, NF 139 mg/dL Normal <150 [facility] Comment on above: Order Comment: Speci men Type: BLOOD SPECIMENOrdering Facility: [facility] Address: [address] [place] [id number] Result Comment: <150 mg/dL, Normal 150-199 mg/dL, Borderline high 200-499 mg/dL, High >499 mg/dL, Very high Performed By: #### 2 4323-8, LIPNF, 98297-2 ####[facility] [id number] [place] [id number] [place] VLDL CHOLESTEROL, NF 20 mg/dL Normal <30 [facility] Comment on above: Order Comment: Speci men Type: BLOOD SPECIMENOrdering Facility: [facility] Address: [address] [place] [address] Performed By: #### 2 4323-8, LIPNF, 58048-0 ####[facility] [id number] [place] [id number] [place] Endocrinology Visit Reporton 07-29-2025 Endocrinology Visit Report [facility] [address] [place] [address] OFFICE VISIT Date of Service: 07/29/25 MR#: [id number] Acct: [id number] Name: DAR ROSE Rep #: [id number] : 1955 Provider: AKOSUA huffman Age/Sex: 69/M [place] [facility] [place]: Signed Intake Vital Signs 04/29/25 09:03 05/28/25 09:07 07/29/25 14:40 Height 5 ft 10 in 5 ft 10 in 5 ft 10 in Weight: 185 lb 186 lb 188 lb 4 oz BMI 26.5 26.6 27.0 BP 145/81 H 118/75 130/78 H Blood Pressure Location Lt brachial Rt brachial Position Sitting Respiration 16 Pulse 63 69 66 Pulse Source Monitor Monitor Temp 98.1 F Temp Source Temporal Pulse Oximetry (%) 98 95 97 Oxygen Delivery Method room air room air room air Intake Visit Reasons: 3 M FU Chief Complaint: f/u diabetes Is patient in pain?: No Allergies bee venom protein (honey bee) Allergy (Verified 07/29/25 14:44) Anaphylaxis Medications ???Medication ???Instructions ???Recorded ???Confirmed ???Type epinephrine 0.3 mg/0.3 mL 0.3 ml subcut ONCE PRN anaphylaxis 10/20/22 07/29/25 History injection, auto-injector fluticasone propionate 50 2 spray intranasal DAILY PRN nasal 10/20/22 07/29/25 History mcg/actuation nasal congestion spray,suspension amlodipine 10 mg tablet 10 mg PO DAILY #90 tabs 09/06/24 0 07/29/25 Rx carvedilol 25 mg tablet 25 mg PO BID #180 tabs 09/06/24 Rx losartan 100 mg tablet 100 mg PO DAILY #90 tabs 09/06/24 07/29/25 Rx atorvastatin 10 mg tablet (Lipitor) 10 mg PO QHS 09/24/24 07/29/25 History baclofen 10 mg tablet 10 mg PO QHS PRN pain 09/24/24 History esomeprazole magnesium 40 mg 40 mg PO DAILY #90 caps 09/24/24 0 07/29/25 Rx capsule,delayed release dicyclomine 10 mg capsule 10 mg PO QHS 11/15/24 07/29/25 His tory blood sugar diagnostic (OneTouch #100 ea 04/29/25 07/29/25 Rx Verio test strips) blood-glucose meter (OneTouch #1 ea 04/29/25 07/29/25 Rx Verio Reflect kit) trazodone 50 mg tablet 25 mg PO QHS 04/29/25 07/29/25 His tory semaglutide 1 mg/dose (4 mg/3 mL) 1 mg (0.75 mL) subcut QWEEK #3 mL 07/29/25 07/29/25 Rx subcutaneous pen injector (Ozempic) Have you fallen in the past year?: No PFSH Medical History (Updated 05/28/25 @ 09:21 by AKOSUA Durant) Wears glasses Cardiology follow-up encounter Anxiety COVID-19 virus detected (07/06/21) Dyslipidemia Paroxysmal supraventricular tachycardia Type 2 diabetes mellitus Essential hypertension Superficial spreading malignant melanoma of skin Depression BPH (benign prostatic hyperplasia) Back problem GERD (gastroesophageal reflux disease) Surgical History History of radiofrequency ablation procedure for cardiac arrhythmia (2013) History of colonoscopy History of prostatectomy History of tonsillectomy History of repair of left rotator cuff Family History Mother Cancer lung Father Alzheimer disease Son Ulcerative colitis Social History Smoking Status: Former smoker how long ago did patient quit smokin years ago alcohol intake: current alcohol intake frequency: holidays/special occasions only substance use type: does not use caffeine: Yes Type: coffee HPI HPI Chief Complaint: f/u diabetes Details: DAR ROSE, is a 69 M who presents to the office today for evaluation and management of diabetes. A1C today is 6.1%, consistent with 04/29/25. He has gained 3 lbs since that time, this is upsetting to him. Currently taking Ozempic 0.5 mg qweek- tolerating well. He admits that he has indulged in more processed carbs than typical, he was also on vacation. BP is stable. Currently taking amlodipine 5m once daily, losartan 50 mg once daily, and carvedilol 25 mg BID. He has CKD and microalbuminuria. He was unable to tolerate SGLT2. He is taking a daily statin. He has labs ordered through the [facility], he intends to have these done within the upcoming weeks. Denies any acute concerns. ROS Const Constitutional: Positive for fatigue and weight change (gain) ENT ENT: No dizziness/vertigo Cardio Cardiology: No chest pain at rest, chest pain with exertion, shortness of breath or palpitations Skin Skin: No wounds Endo Endocrine: Positive for fatigue and weight change (gain) Exam Const General: cooperative, healthy appearing, comfortable and no acute distress Nutritional Appearance: overweight Orientation: alert, awake and oriented x3 HENMT Head: normal to inspection Ears: hearing grossly normal bilaterally Nose: external nose normal Face and sinus: normal (more content not included)... [facility] Telephone (FAMDNA) DAR ROSE ([id number]) 1955 M Date Time Provider Department 05/30/25 CRUZ PRADO During your visit today, we recorded the following information about you: [place] 05/30/2025 12:14 PM Signed Reagan is calling Cruz Prado MD today with concern regarding the change in lower dose of Trazodone 50 mg tablet that was reduced to one half tab daily is not working so patient has been taking a whole 50 mg tablet and is now running out. Please advise if provider will switch back to the Trazodone 50 mg tablet once daily at bedtime? Second medication patient asking too switch back to 200 mg gabapentin as the 100 mg is not effective. Please send new RX for the 200 mg gabapentin if provider agrees. Patient does have one week left of that medication Pharmacy is [facility] please send new Rx's to that pharmacy Patient has been identified by name and birthdate. Duration of symptoms: N/A Person calling: self Call patient at: on cell [phone] (home) [phone] (cell) Was an appointment scheduled: No Closing statement: Results or non-symptom based questions: Thank you for calling [facility], your call will be returned within the next business day. Rain Lanier [facility] LPN 05/30/2025 1:09 PM Signed Please see message from patient. Prescription Refill Information The patient has been identified by name and date of : Yes Caregiver verified no other encounters exist for this prescription request: Yes Caregiver confirmed with patient/requestor that no other refills are due, in the near future, with this provider at this time: Yes The last office visit in the department: 01/16/25 Does the patient have a future office visit with this provider/department: Yes 07/23/25 Requested Prescriptions Pending Prescriptions Disp Refills traZODone (DESYREL) 50 mg tablet 45 tablet 1 Sig: Take by mouth daily at bedtime. gabapentin (NEURONTIN) 100 mg capsule Sig: Take 2 capsules by mouth daily at bedtime. Take gabapentin 100 mg in the evening before bed. Nely Soriano LPN May 30, 2025 1:08 PM Cruz Prado MD 05/30/2025 8:39 PM Signed Let patient know both med refills sent in. However remind him that he was advised with the last change not to make changes in his meds on his own with discussing with me first. 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 The following approved medication requests have been transmitted electronically. Requested Prescriptions Signed Prescriptions Disp Refills traZODone (DESYREL) 50 mg tablet 90 tablet 1 Sig: Take 1 tablet by mouth daily at bedtime. Authorizing Provider: CRUZ PRADO gabapentin (NEURONTIN) 100 mg capsule 180 capsule 1 Sig: Take 2 capsules by mouth daily at bedtime for 180 days. Take gabapentin 100 mg in the evening before bed. Authorizing Provider: CRUZ PRADO semaglutide (OZEMPIC) 0.25 mg or 0.5 mg (2 mg/3 mL) pen Sig: Inject 0.5 mg subcutaneously one time a week. Per Curly Mireles Authorizing Provider: CRUZ PRADO MD Hambel, Sherill A, LPN 05/31/2025 1:44 PM Signed Spoke with pt and advised him word for word of Dr Prado's message. Pt verbalizes understanding. Raul Domingo LPN Allergies As of Date: 05/30/2025 Noted Allergy Reaction BEE STING 09/29/2011 10 - Anaphylaxis AMITRIPTYLINE 12/30/2017 5 - Intolerance TRAMADOL 08/17/2018 11 - Vomiting Date Reviewed: 05/27/2025 Reviewed by: Izabela Garcia, PATEL - Fully Assessed Reason for Visit: Medication Request [138] Cmt: Request to increase two medications Primary Visit Diagnosis:Type 2 diabetes mellitus with retinopathy, without long-term current use of insulin, macular edema presence unspecified, unspecified laterality, unspecified retinopathy severity (HCC) [E11.319] Other Visit Diagnoses:Chronic insomnia [F51.04] Controlled type 2 diabetes mellitus with stage 3 chronic kidney disease, without long-term current use of insulin (HCC) [E11.22, N18.30] 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) [E11.42] Order(s):traZODone (DESYREL) 50 mg tabletTake 1 tablet by mouth daily at bedtime.Disp: 90 tabletRfl: 1 gabapentin (NEURONTIN) 100 mg capsuleTake 2 capsules by mouth daily at bedtime for 180 days. Take gabapentin 100 mg in the evening before bed.Disp: 180 capsuleRfl: 1 semaglutide (OZEMPIC) 0.25 mg or 0.5 mg (2 mg/3 mL) penInject 0.5 mg subcutaneously one time a week. Per Curly Celestin: Rfl: Prescriptions as of 05/31/2025 - traZODone (DESYREL) 50 mg tablet Take 1 tablet by mouth daily at bedtime. - gabapentin (NEURONTIN) 100 mg capsule Take 2 capsules by mouth daily at bedtime f (more content not included)... Normal [facility] Gastroenterology Visit Repor ton 05-28-2025 Gastroenterology Visit Report [facility] Gastroenterology [address] [place] [address] OFFICE VISIT Date of Service: 05/28/25 MR#: [id number] Acct: [id number] Name: DAR ROSE Rep #: [id number] : 1955 Provider: AKOSUA medina Age/Sex: 69/M [place] [facility] [place] Status: Signed Intake Vital Signs 11/27/24 08:38 01/28/25 09:45 04/29/25 09:03 05/28/25 09:07 Height 5 ft 10 in 5 ft 10 in 5 ft 10 in 5 ft 10 in Weight: 182 lb 6 oz 186 lb BMI 26.2 26.6 BP 132/76 H 118/75 Blood Pressure Location Rt brachial Position Sitting Respiration 16 Pulse 55 L 69 Pulse Source Monitor Temp 98.1 F Temp Source Temporal Pulse Oximetry (%) 98 95 Oxygen Delivery Method room air room air Intake Visit Reasons: 6 M FU Chief Complaint: follow-up [place] Required: No Accompanied by: Self Is patient in pain?: No Allergies bee venom protein (honey bee) Allergy (Verified 05/28/25 08:56) Anaphylaxis Medications ???Medication ???Instructions ???Recorded ???Confirmed ???Type epinephrine 0.3 mg/0.3 mL 0.3 ml subcut ONCE PRN anaphylaxis 10/20/22 05/28/25 History injection, auto-injector fluticasone propionate 50 2 spray intranasal DAILY PRN nasal 10/20/22 05/28/25 History mcg/actuation nasal congestion spray,suspension amlodipine 10 mg tablet 10 mg PO DAILY #90 tabs 09/06/24 0 05/28/25 Rx carvedilol 25 mg tablet 25 mg PO BID #180 tabs 09/06/24 Rx losartan 100 mg tablet 100 mg PO DAILY #90 tabs 09/06/24 05/28/25 Rx atorvastatin 10 mg tablet (Lipitor) 10 mg PO QHS 09/24/24 05/28/25 History baclofen 10 mg tablet 10 mg PO QHS PRN pain 09/24/24 History esomeprazole magnesium 40 mg 40 mg PO DAILY #90 caps 09/24/24 0 05/28/25 Rx capsule,delayed release dicyclomine 10 mg capsule 10 mg PO QHS 11/15/24 05/28/25 His tory semaglutide 0.25 mg or 0.5 mg (2 0.5 mg (0.736 mL) subcut TU #3 mL 02/20/25 05/28/25 Rx mg/3 mL) subcutaneous pen injector (SplashCast) blood sugar diagnostic (OneTouch #100 ea 04/29/25 05/28/25 Rx Verio test strips) blood-glucose meter (OneTouch #1 ea 04/29/25 05/28/25 Rx Verio Reflect kit) trazodone 50 mg tablet 25 mg PO QHS 04/29/25 05/28/25 His tory Have you fallen in the past year?: No PFSH Medical History (Updated 05/28/25 @ 09:21 by AKOSUA Durant) Wears glasses Cardiology follow-up encounter Anxiety COVID-19 virus detected (07/06/21) Dyslipidemia Paroxysmal supraventricular tachycardia Type 2 diabetes mellitus Essential hypertension Superficial spreading malignant melanoma of skin Depression BPH (benign prostatic hyperplasia) Back problem GERD (gastroesophageal reflux disease) Surgical History History of radiofrequency ablation procedure for cardiac arrhythmia (2013) History of colonoscopy History of prostatectomy History of tonsillectomy History of repair of left rotator cuff Family History Mother Cancer lung Father Alzheimer disease Son Ulcerative colitis Social History Smoking Status: Former smoker how long ago did patient quit smokin years ago alcohol intake: current alcohol intake frequency: holidays/special occasions only substance use type: does not use caffeine: Yes Type: coffee HPI HPI Chief Complaint: follow-up Details: MRI 11/13/2024 GI Tract: 2.8 x 2.9 x 2.8 cm round T1 and 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 No evidence of signal dropout on T1 opposed phase images compared to T1 in phase images. No evidence of signal drop on fat saturation sequence. It demonstrates heterogeneous gradual enhancement. 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 Biopsied. 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 - No gross lesions in the duodenal bulb. - Endoscopic ultrasound with possible fine-needle aspiration OV 11/27/2024 69y/o male presents for three month follow-up. He was initially seen in the office 09/24/2024 with complaints of right sided abdominal pain. Today he presents with improvement in pain with dietary modifications and weight loss. Abdominal US completed 10/15/2024 was revealing for a large cyst within the right lobe of the liver, significantly larger than previous imaging in 2020. MRI reveals multiple simple liver cysts, largest measuring 2.3cm. Of greater concern is a lesion noted within the stomach. 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 EUS is recommended for further evaluation, I have provided him a referral to Dr. Denisse Miller at [facility] in (more content not included)... Normal [facility] CNOVon 05-27-2025 CNOV Office Visit (PODIWS ) DAR ROSE ([id number]) 1955 M Date Time Provider Department 05/27/25 11:30 AM ANI LINARES During your visit today, we recorded the following information about you: Izabela Garcia, PATEL 05/27/2025 12:41 PM Signed Patient presents with: Right Foot - Established Patient, Follow Up Left Foot - Established Patient, Pain AMB ROOMING INTAKE FLOWSHEET DATA Pain Pain Level: 8 (when wearing shoes) Pain Location: Foot-Right Patient presents for right foot follow up. Has corn to right great toe, has been using at home treatments. States that he did not get the xrays that were ordered previously. Also states that he stubbed his left 3rd toe 2 days ago, some pain, bruising noted to toe tip. ROBSON 01/29/25 Ani Linares 05/27/2025 12:01 PM Signed Diabetes Foot Care Instructions When you have diabetes, proper foot care is very important. Poor foot care may lead to amputation of a foot or leg. As a person with diabetes, you are more vulnerable to foot problems, because diabetes can damage your nerves and reduce blood flow to your feet. Here are some diabetes foot care tips to follow: Wash and Dry Your Feet Daily Use mild soaps Use warm water Pat your skin dry; do not rub. Thoroughly dry your feet. After washing, use lotion on your feet to prevent cracking. Do not put lotion between your toes. Examine Your Feet Each Day Check the tops and bottoms of your feet. Have someone else look at your feet if you cannot see them. Check for dry, cracked skin. Look for blisters, cuts, scratches, or other sores. Check for redness, increased warmth, or tenderness when touching any area of your feet. Check for ingrown toenails, corns, and calluses. If you get a blister or sore from your shoes, do not pop it. Apply a bandage and wear a different pair of shoes. Take Care of Your Toenails Cut toenails after bathing, when they are soft. Cut toenails straight across and smooth with a nail file. Avoid cutting into the corners of toes. Do not cut cuticles. If you have neuropathy (or decreased sensation in your feet) a air pumper should always cut your toenails. Be Careful When Exercising Walk and exercise in comfortable shoes. Do not exercise when you have open sores on your feet. Protect Your Feet With Shoes and Socks Never go barefoot. Always protect your feet by wearing shoes or hard-soled slippers or footwear. Avoid shoes with high heels and pointed toes. Avoid shoes that expose your toes or heels (such as open-toed shoes or sandals). These types of shoes increase your risk for injury and potential infections. Try on new footwear with the type of socks you usually wear. Do not wear new shoes for more than an hour at a time. Change your socks daily. Look and feel inside your shoes before putting them on to make sure there are no foreign objects or rough areas. Avoid tight socks. Wear natural-fiber socks (cotton, wool, or a cotton-wool blend). Wear special shoes if your health care provider recommends them. Wear shoes/boots that will protect your feet from various weather conditions (cold, moisture, etc.). Make sure your shoes fit properly. If you have neuropathy (nerve damage), you may not notice that your shoes are too tight. Perform the footwear test described below. Footwear Test Use this simple test to see if your shoes fit correctly: Stand on a piece of paper. (Make sure you are standing and not sitting, because your foot changes shape when you stand.) Trace the outline of your foot. Trace the outline of your shoe. Compare the tracings: Is the shoe too narrow? Is your foot crammed into the shoe? The shoe should be at least 1/2 inch longer than your longest toe and as wide as your foot. Proper Shoe Choices The following types of shoes are best for people with diabetes Closed toes and heels Leather uppers without a seam inside At least 1/2 inch extra space at the end of your longest toe Inside of shoe should be soft with no rough areas Outer sole should be made of stiff material Shoes should be at least as wide as your feet Tips for Foot Care in Diabetes Don't wait to treat a minor foot problem if you have diabetes. Follow your health care provider's guidelines and first aid guidelines. Report foot injuries and infections to your health care provider immediately. Check water temperature with your elbow, not your foot. Do not use a heating pad on your feet. Do not cross your legs. Do not self-treat your corns, calluses, or other foot problems. Go to your health care provider or air pumper to treat these conditions. Powerstep Original Full length. Can purchase at [employer] and boots,shoes and more here in [place], [employer] in [place] or [place]. Also can find in [place] in [facility]. Powersteps can also be purchased [employer] (more content not included)... Normal [facility] Endocrinology Visit Reporton 04-29-2025 Endocrinology Visit Report [facility] [address] [place] [address] OFFICE VISIT Date of Service: 04/29/25 MR#: [id number] Acct: [id number] Name: DAR ROSE Rep #: [id number] : 1955 Provider: AKOSUA huffman Age/Sex: 69/M [place] [facility] [place] Signed Intake Vital Signs 01/28/25 09:45 04/29/25 09:03 Height 5 ft 10 in 5 ft 10 in Weight: 182 lb 6 oz 185 lb BMI 26.2 26.5 BP 132/76 H 145/81 H Blood Pressure Location Rt brachial Lt brachial Position Sitting Sitting Pulse 55 L 63 Pulse Source Monitor Monitor Pulse Oximetry (%) 98 98 Oxygen Delivery Method room air room air Intake Visit Reasons: 3 M FU Chief Complaint: f/u diabetes [place] Required: No Accompanied by: Self Is patient in pain?: No Allergies bee venom protein (honey bee) Allergy (Verified 12/24/24 09:22) Anaphylaxis Medications ???Medication ???Instructions ???Recorded ???Confirmed ???Type epinephrine 0.3 mg/0.3 mL 0.3 ml subcut ONCE PRN anaphylaxis 10/20/22 04/29/25 History injection, auto-injector fluticasone propionate 50 2 spray intranasal DAILY PRN nasal 10/20/22 04/29/25 History mcg/actuation nasal congestion spray,suspension amlodipine 10 mg tablet 10 mg PO DAILY #90 tabs 09/06/24 0 04/29/25 Rx carvedilol 25 mg tablet 25 mg PO BID #180 tabs 09/06/24 Rx losartan 100 mg tablet 100 mg PO DAILY #90 tabs 09/06/24 01/28/25 Rx atorvastatin 10 mg tablet (Lipitor) 10 mg PO QHS 09/24/24 04/29/25 History baclofen 10 mg tablet 10 mg PO QHS PRN pain 09/24/24 History esomeprazole magnesium 40 mg 40 mg PO DAILY #90 caps 09/24/24 0 04/29/25 Rx capsule,delayed release dicyclomine 10 mg capsule 10 mg PO QHS 11/15/24 04/29/25 His tory semaglutide 0.25 mg or 0.5 mg (2 0.5 mg (0.736 mL) subcut TU #3 mL 02/20/25 04/29/25 Rx mg/3 mL) subcutaneous pen injector (SplashCast) blood sugar diagnostic (OneTouch #100 ea 04/29/25 04/29/25 Rx Verio test strips) blood-glucose meter (OneTouch #1 ea 04/29/25 04/29/25 Rx Verio Reflect kit) trazodone 50 mg tablet 25 mg PO QHS 04/29/25 04/29/25 His tory Have you fallen in the past year?: No PFSH Medical History Wears glasses Cardiology follow-up encounter Anxiety COVID-19 virus detected (07/06/21) Dyslipidemia Paroxysmal supraventricular tachycardia Type 2 diabetes mellitus Essential hypertension Superficial spreading malignant melanoma of skin Depression BPH (benign prostatic hyperplasia) Back problem GERD (gastroesophageal reflux disease) Surgical History History of radiofrequency ablation procedure for cardiac arrhythmia (2013) History of colonoscopy History of prostatectomy History of tonsillectomy History of repair of left rotator cuff Family History Mother Cancer lung Father Alzheimer disease Son Ulcerative colitis Social History Smoking Status: Former smoker how long ago did patient quit smokin years ago alcohol intake: current alcohol intake frequency: holidays/special occasions only substance use type: does not use caffeine: Yes Type: coffee HPI HPI Chief Complaint: f/u diabetes Details: DAR ROSE, is a 69 M who presents to the office today for evaluation and management of diabetes. A1C today is 6.1%, increased from 01/28/25 at 5.9%. He he has gained 3 lbs since that time. Currently taking Ozempic 0.5 mg qweek- tolerating well. At initial appointment he was placed on Jardiance 25 mg once daily. He was experiencing frequent low blood sugars with weakness and general feelings of being unwell. He did try reducing the dose without improvement and ultimately discontinued medication approximately 1 month ago. He states since stopping medication that he is feeling better and is without complaint. He reports continued feelings of low blood sugar late mornings with activity, he is taking glucose tablets to address. BP is controlled. Currently taking amlodipine 10 mg once daily, carvedilol 25 mg BID, and losartan 100 mg once daily. He has CKD and microalbuminuria. He is taking taking a daily statin. He has labs scheduled with PCP this coming fall. Denies any acute concerns. ROS Const Constitutional: Positive for other (ROS negative x10 body systems ) Exam Const General: cooperative, healthy appearing, comfortable and no acute distress Nutritional Appearance: overweight Orientation: alert, awake and oriented x3 HENMT Head: normal to inspection Ears: hearing grossly normal bilaterally Nose: external nose normal (more content not included)... Normal [facility] - Hematology and Cell countsOrdered By: Whit Zambrano on 04-29-2025 HbA1c (Bld) [Mass fraction] 6.1 % 4.2-6.3 [facility] CNOVon 04-01-2025 CNOV Office Visit (UCWSTR ) MILTON,DAR Coello ([id number]) 1955 M Date Time Provider Department 04/01/25 8:15 AM LOREN VALLECILLOWSTR During your visit today, we recorded the following information about you: Temperature Pulse Respiration Blood pressure 97.2 degrees 60/minute 16/minute 122/78 Weight 84.2 kg Loren Vallecillo APRN.SOCIAL MEDIA MANAGER 04/01/2025 8:40 AM Signed Patient presents with: Cough: Cough, sinus, congestion and WYNN x 2 weeks 69 year old male presents with two weeks of symptoms including dry cough, facial pain, and facial tenderness and are gradually worsening since that time. PMH: Sinusitis Seasonal allergies Review of Systems Constitutional: Positive for fever and malaise/fatigue. Negative for chills. HENT: Positive for sinus pain. Eyes: Negative for pain, discharge and redness. Respiratory: Positive for cough. Negative for shortness of breath and wheezing. Cardiovascular: Negative for chest pain, palpitations and leg swelling. Gastrointestinal: Negative for diarrhea, heartburn, nausea and vomiting. Genitourinary: Negative for dysuria, frequency and urgency. Musculoskeletal: Negative for myalgias. Skin: Negative for rash. Neurological: Negative for headaches. Physical Exam Vitals reviewed. Constitutional: General: He is not in acute distress. Appearance: Normal appearance. He is not ill-appearing or toxic-appearing. HENT: Head: Normocephalic and atraumatic. Right Ear: Hearing, ear canal and external ear normal. Left Ear: Hearing, ear canal and external ear normal. Nose: Mucosal edema present. Right Turbinates: Swollen and pale. Left Turbinates: Swollen and pale. Right Sinus: Maxillary sinus tenderness and frontal sinus tenderness present. Left Sinus: Maxillary sinus tenderness and frontal sinus tenderness present. Mouth/Throat: Mouth: Mucous membranes are moist. Pharynx: Oropharynx is clear. No oropharyngeal exudate or posterior oropharyngeal erythema. Eyes: Extraocular Movements: Extraocular movements intact. Conjunctiva/sclera: Conjunctivae normal. Pupils: Pupils are equal, round, and reactive to light. Cardiovascular: Rate and Rhythm: Normal rate and regular rhythm. Pulses: Normal pulses. Heart sounds: Normal heart sounds. No murmur heard. Pulmonary: Effort: Pulmonary effort is normal. No respiratory distress. Breath sounds: Normal breath sounds. No wheezing or rhonchi. Abdominal: General: Bowel sounds are normal. Palpations: Abdomen is soft. Musculoskeletal: Cervical back: Normal range of motion and neck supple. No tenderness. Lymphadenopathy: Cervical: No cervical adenopathy. Skin: General: Skin is warm and dry. Capillary Refill: Capillary refill takes less than 2 seconds. Neurological: General: No focal deficit present. Mental Status: He is alert and oriented to person, place, and time. ASSESSMENT: (J01.40) Acute non-recurrent pansinusitis (primary encounter diagnosis) Comment: Plan: doxycycline monohydrate (MONODOX) 100 mg capsule (J30.89) Seasonal allergic rhinitis due to other allergic trigger Plan: sodium chloride (SALINE NASAL) 0.65 % nasal spray, azelastine 0.1% nasal spray, fluticasone (FLONASE ALLERGY RELIEF) 50 mcg/actuation nasal spray (R05.1) Acute cough Plan: benzonatate (TESSALON PERLE) 100 mg capsule Patient given educational materials - see patient instructions. Discussed use, benefit, and side effects of prescribed medications. All patient questions answered. Pt voiced understanding and agrees with treatment plan. Patient advised to follow up with PCP within one week, or sooner if symptoms worsen or persist. If symptoms become severe- GO TO ED. Patient agreeable with treatment plan. Loren Vallecillo APRN.SOCIAL MEDIA MANAGER Subjective The patient is a 69-year-old male with a history of recurrent sinusitis and HTN, presenting with worsening sinus congestion and ear fullness over melisas past 2 weeks. Sinus Congestion: - Worsening sinus congestion x2 weeks. - Experiences sinus issues approximately 3 times a year. - Uses nasal spray PRN when unable to breathe through the nose. - Currently using an OTC decongestant. - Denies sore throat, significant facial pressure, or dyspnea. - Reports low-grade fever and inability to breathe through the nose. - Wakes up at 0300 and is unable to return to sleep due to nasal congestion. - Denies hemoptysis, nausea, emesis, diarrhea, or urinary issues. 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 Ear Fullness: - Chronic ear fullness, exacerbated by changes in elevation and weather. - Reports dizziness associated with ear fullness. - Denies otalgia. HTN: - Cautious with decongestant use due to HTN and medications. - Reports dizziness as a side effect of medications. GERD: - Managed with Nexium (more content not included)... Normal [facility] CNPNon 03-28-2025 [facility] (FAMPWS[facility] MILTONDAR Mode ([id number]) 1955 Date Time Provider Department 03/28/25 CRUZ PRADO During your visit today, we recorded the following information about you: Irma Schmid 03/28/2025 2:02 PM Signed Prescription Refill Information The patient has been identified by name and date of : Yes Caregiver verified no other encounters exist for this prescription request: Yes Caregiver confirmed with patient/requestor that no other refills are due, in the near future, with this provider at this time: Yes The last office visit in the department: 01-16-25 Does the patient have a future office visit with this provider/department: Yes Requested prescription Trazodone 50 mg tablet 1 tablet daily 90 tablets. Pharmacy has been updated in [facility] Irma Collier March 28, 2025 1:59 PM Irma Schmid 03/28/2025 2:02 PM Signed Patient states that he uses 100 mg of gabapentin at night, but it makes him too sleepy during the day, so he is requesting the trazodonexw to be reinstated. Raul Domingo LPN 03/28/2025 2:34 PM Signed Please see message below. ROBSON 01/16/25 NOV 07/23/25 Cruz Prado MD 03/28/2025 3:31 PM Signed Let patient know that with stopping the gabapentin his neuropathy will most likely increase again. I also have that he stopped the trazodone due to feeling to tired the next day. Izabela Skelton RN 03/28/2025 7:03 PM Signed Pt called and is notified of providers message. Pt states he didn't stop taking them. He states he is only taking 100 mg of the Gabapentin in the evening and 25 mg of the Trazodone. Pt states he is cutting the Trazodone pills in half, he said he doesn't know if they come in 25 mg. PATEL Stapleton Jeffrey A, MD 03/29/2025 8:46 AM Signed So let patient know per our last office visit on 01/16/2025 I have he did not like the fogginess he was getting from the trazodone. He was instructed to stop the trazodone before bed and start gabapentin 100 mg before bed for a week and the go to taking 2 100 mg tabs before bed. I see no interaction between now and then that we discussed any issues with the gabapentin and a discission was made to cut back on the gabapentin 100 mg to one before bed and to re-start the Trazodone 50 mg at 1/2 a tab. Patient's are not supposed to make medication changes on their own without discussing it with their provider first. I adjusted the gabapentin order in his chart to one before bed. I sent in a script for trazodone 50 mg 1/2 a tab before bed since there is no 25 mg dosage. The following approved medication requests have been transmitted electronically. Requested Prescriptions Signed Prescriptions Disp Refills gabapentin (NEURONTIN) 100 mg capsule Sig: Take gabapentin 100 mg in the evening before bed. Authorizing Provider: CRUZ PRADO traZODone (DESYREL) 50 mg tablet 45 tablet 1 Sig: Take 0.5 tablets by mouth daily at bedtime. Authorizing Provider: CRUZ PRADO MD James, Roxanne, MA 03/29/2025 10:20 AM Signed Patient notified and voiced understanding. Milind Denis MA Allergies As of Date: 03/28/2025 Noted Allergy Reaction BEE STING 09/29/2011 10 - Anaphylaxis AMITRIPTYLINE 12/30/2017 5 - Intolerance TRAMADOL 08/17/2018 11 - Vomiting TRAZODONE 01/16/2025 14 - Other: See Comments Comments: Makes him groggy the next day Date Reviewed: 02/18/2025 Reviewed by: Kelsey Silva MA - Fully Assessed Reason for Visit: Refill Request [94] Visit Diagnosis:Chronic insomnia [F51.04] Order(s):gabapentin (NEURONTIN) 100 mg capsuleTake gabapentin 100 mg in the evening before bed.Disp: Rfl: traZODone (DESYREL) 50 mg tabletTake 0.5 tablets by mouth daily at bedtime.Disp: 45 tabletRfl: 1 Prescriptions as of 03/29/2025 - gabapentin (NEURONTIN) 100 mg capsule Take gabapentin 100 mg in the evening before bed. - traZODone (DESYREL) 50 mg tablet Take 0.5 tablets by mouth daily at bedtime. - empagliflozin (JARDIANCE) 25 mg tablet Take 1 tablet by mouth daily with breakfast. Per Endo: Dr. Mireles - ferrous sulfate 325 mg (65 mg iron) tablet Take 1 tablet by mouth every other day. - atorvastatin (LIPITOR) 10 mg tablet Take 1 tablet by mouth daily at bedtime. For cholesterol. - esomeprazole (NEXIUM) 40 mg capsule Take 1 capsule by mouth two times a day. - semaglutide (OZEMPIC) 0.25 mg or 0.5 mg (2 mg/3 mL) pen Inject 0.25 mg subcutaneously one time a week. - blood sugar diagnostic (BLOOD GLUCOSE TEST) test strip Test blood sugar(s) 2 times daily. Dx: Other DM Code E11.22 Insulin: No - Lancets Test blood sugar(s) 2 times daily. Dx: Other DM Code E11.22 Insulin: No - dicyclomine (BENTYL) 10 mg capsule Take 1 capsule by mouth before meals and at bedtime. PRN - EPINEPHrine (AUVI-Q) 0.3 mg/0.3 mL auto-injecto (more content not included)... [facility] Nurse Visit (FAMPWS) DAR ROSE ([id number]) 1955 M Date Time Provider Department 03/19/25 10:00 AM [place] NURSE MICK During your visit today, we recorded the following information about you: ESTHER YESSICA 03/19/2025 10:25 AM Signed Patient presents for Shingrix vaccine. Denies any problems at this time. Tolerated injection well. Yessica Smith LPN Allergies As of Date: 03/19/2025 Noted Allergy Reaction BEE STING 09/29/2011 10 - Anaphylaxis AMITRIPTYLINE 12/30/2017 5 - Intolerance TRAMADOL 08/17/2018 11 - Vomiting TRAZODONE 01/16/2025 14 - Other: See Comments Comments: Makes him groggy the next day Date Reviewed: 02/18/2025 Reviewed by: Kelsey Silva MA - Fully Assessed Reason for Visit: Imm/Inj [58] Primary Visit Diagnosis:Encounter for immunization [Z23] Prescriptions as of 03/19/2025 - empagliflozin (JARDIANCE) 25 mg tablet Take 1 tablet by mouth daily with breakfast. Per Endo: Dr. Mireles - ferrous sulfate 325 mg (65 mg iron) tablet Take 1 tablet by mouth every other day. - atorvastatin (LIPITOR) 10 mg tablet Take 1 tablet by mouth daily at bedtime. For cholesterol. - esomeprazole (NEXIUM) 40 mg capsule Take 1 capsule by mouth two times a day. - gabapentin (NEURONTIN) 100 mg capsule Take gabapentin 100 mg in the evening for a week, then increase to two 100 mg capsules before bed. - semaglutide (OZEMPIC) 0.25 mg or 0.5 mg (2 mg/3 mL) pen Inject 0.25 mg subcutaneously one time a week. - blood sugar diagnostic (BLOOD GLUCOSE TEST) test strip Test blood sugar(s) 2 times daily. Dx: Other DM Code E11.22 Insulin: No - Lancets Test blood sugar(s) 2 times daily. Dx: Other DM Code E11.22 Insulin: No - dicyclomine (BENTYL) 10 mg capsule Take 1 capsule by mouth before meals and at bedtime. PRN - EPINEPHrine (AUVI-Q) 0.3 mg/0.3 mL auto-injector Inject 0.3 mL intramuscularly as needed. - fluticasone (FLONASE) 50 mcg/actuation nasal spray Use 2 Sprays in each nostril once daily. Rinse mouth after use. - docusate sodium (COLACE) 100 mg capsule Take 1 capsule by mouth two times a day as needed for constipation. - ondansetron orally disintegrating (ZOFRAN ODT) 4 mg disintegrating tablet Take 1 tablet by mouth every 6 hours as needed for nausea/vomiting. - losartan (COZAAR) 100 mg tablet Take 1 tablet by mouth once daily. - carvedilol (COREG) 25 mg tablet Take 1 tablet by mouth twice daily. Per Cardio, Dr. Schneider - amLODIPine (NORVASC) 10 mg tablet Take 1 tablet by mouth once daily. Per Cardio, Dr. Schneider Problem List As Of Date 03/19/2025 Noted Resolved Essential hypertension, benign [I10] 06/06/2006 Health maintenance examination [Z00.00] 09/29/2011 02/15/2013 Anxiety [F41.9] 11/16/2012 Herniated lumbar intervertebral disc [M51.26] Mixed hyperlipidemia [E78.2] 03/20/2013 Nuclear sclerotic cataract of both eyes [H25.13]05/30/2015 Other chronic allergic conjunctivitis [H10.45] 05/30/2015 08/17/2018 Degenerative retinal drusen of both eyes [H35.3*05/30/2015 Vitreous syneresis of both eyes [H43.393] 05/30/2015 Posterior vitreous detachment of left eye [H43.*08/31/2016 Senile nuclear sclerosis [H25.10] 05/17/2017 Posterior vitreous detachment of right eye [H43*09/09/2017 Type 2 diabetes mellitus with retinopathy, with*09/09/2017 Senile nuclear sclerosis, bilateral [H25.13] 09/09/2017 Peripheral retinal degeneration, paving stone, *09/09/2017 Matthew's esophagus [K22.70] 04/01/2016 08/28/2018 Leg cramps [R25.2] 01/30/2018 Uncontrolled type 2 diabetes mellitus with stag*01/30/2018 02/24/2019 Decreased libido [R68.82] 01/30/2018 Dupuytren contracture [M72.0] 08/25/2017 08/17/2018 Trigger middle finger of right hand [M65.331] 08/25/2017 08/17/2018 Trigger ring finger of left hand [M65.342] 08/25/2017 08/17/2018 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 [K22.70] 07/06/2018 Hematuria [R31.9] 12/15/2018 12/16/2018 Controlled type 2 diabetes mellitus with stage *02/24/2019 Lumbar radiculopathy [M54.16] 02/24/2019 Chronic insomnia [F51.04] 02/24/2019 Malignant melanoma of torso excluding breast (H*02/11/2020 Low testosterone in male [R79.89] 06/21/2020 Iron deficiency anemia [D50.9] 06/21/2020 History of depression [Z86.59] Ex-smoker [Z87.891] 05/20/2021 Gastroesophageal reflux disease with esophagiti*05/20/2021 ED (erectile dysfunction) [N52.9] 05/20/2021 SVT (supraventricular tachycardia) (HCC) [I47.1*05/20/2021 AK (actinic keratosis) [L57.0] 05/20/2021 Irritable bowel syndrome with both constipation*07/31/20 RUQ abdominal pain [R10.11] 07/31/2021 History of COVID-19 [Z86.16] 08/03/2021 Renal cyst, right [N28.1] 08/10/2021 Liver cyst [K76.89] 08/10/2021 Diabetic eye exam (HCC) [Z01.00, E11.9] 03/18/2022 Retinopathy [H35.00] 03/19/2022 Medication management [Z79.899] 08/23/2022 Well adult exam [Z00.00] 08/23/2022 Peripheral sensory neuropathy due to t (more content not included)... Normal [facility] CNOVon 02-18-2025 CNOV Office Visit (UCWSTR ) DAR ROSE ([id number]) 1955 M Date Time Provider Department 02/18/25 8:45 AM ASIM DENIS During your visit today, we recorded the following information about you: Temperature Pulse Respiration Blood pressure 96.9 degrees 78/minute 16/minute 102/60 Weight 83.2 kg Asim Denis APRN.SOCIAL MEDIA MANAGER 02/18/2025 9:06 AM Signed [facility] Subjective Dar Rose is a 69 year old male. Patient presents with: Sinus Problem: sinus pressure, drainage, left ear and jaw pain x 2 weeks Patient came in with complaints of left-sided ear pain sinus pressure and congestion for about 2 weeks. Said he also has a little bit of tooth pain on the left side.. Denies any shortness of breath. Denies any other symptoms. Patient says he usually does get sinus infections. The history is provided by the patient. No language arts teacher was used. Sinus Problem Associated symptoms include congestion. Review of Systems Constitutional: Negative. HENT: Positive for congestion, ear pain and sinus pressure. Objective BP 102/60 Pulse 78 Temp 36.1 ?C (96.9 ?F) Resp 16 Wt 83.2 kg (183 lb 6.8 oz) SpO2 97% BMI 27.48 kg/m? Physical Exam Constitutional: Appearance: Normal appearance. HENT: Right Ear: Tympanic membrane, ear canal and external ear normal. Left Ear: Tympanic membrane, ear canal and external ear normal. Mouth/Throat: Mouth: Mucous membranes are moist. Pharynx: Oropharynx is clear. Comments: Some dental caries noted. No significant swelling redness or abscesses noted. No trismus noted. Eyes: Pupils: Pupils are equal, round, and reactive to light. Cardiovascular: Rate and Rhythm: Normal rate and regular rhythm. Heart sounds: Normal heart sounds. Pulmonary: Effort: Pulmonary effort is normal. Breath sounds: Normal breath sounds. Neurological: Mental Status: He is alert. 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 07/06/2018 Basal cell carcinoma 12/02/2021 Bilateral hip pain 01/21/2023 BPH (benign prostatic hyperplasia) s/p removal Callus of foot 09/22/2023 Seeing podiatry Chronic insomnia 02/24/2019 Controlled type 2 diabetes mellitus with stage 3 chronic kidney disease, without long-term current use of insulin (HCC) 02/24/2019 Decreased libido 01/30/2018 Degenerative retinal drusen of both eyes 05/30/2015 Diabetic eye exam (HCC) 03/18/2022 Last done 01/05/22 Non-Proliferative Diabetic Retinopathy mild [facility] (erectile dysfunction) 05/20/2021 Essential hypertension, benign 06/06/2006 Ex-smoker 05/20/2021 Started age 16, up to 2 PPD quit age 21 Gastroesophageal reflux disease with esophagitis without hemorrhage 05/20/2021 Herniated lumbar intervertebral disc History of BPH s/p removal History of depression Iron deficiency anemia 06/21/2020 Irritable bowel syndrome with both constipation and diarrhea 07/31/2021 Leg cramps 01/30/2018 Living will on file at physician's office 10/13/2022 DPA: catherine () Low testosterone in male 06/21/2020 Lumbar radiculopathy 02/24/2019 Lumbar spinal stenosis 05/18/2023 MRI 02/2023- [facility] Malignant melanoma of torso excluding breast (HCC) 02/11/2020 Metabolic dysfunction-associate d steatohepatitis (MASH) 10/17/2024 US with elstography 09/2024 was F2-F3, seeing ? 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 Along with HS's and body aches: Has FMLA for Posterior vitreous detachment of left eye 08/31/2016 Posterior vitreous detachment of right eye 09/09/2017 Renal cyst, right 08/10/2021 Simple, benign US 07/2021 Retinopathy 03/19/2022 Mild B/l Rotator cuff tear, left Senile nuclear sclerosis 05/17/2017 Senile nuclear sclerosis, bilateral 09/09/2017 Stage 3a chronic kidney disease ([facility]) 07/12/2024 SVT (supraventricular tachycardia) ([facility]) 05/20/2021 Treated with Ablation: 2013 Tinnitus of both ears 12/30/2023 Type 2 diabetes mellitus with retinopathy, without long-term current use of insulin ([facility]) 09/09/2017 Uncontrolled type 2 diabetes mellitus with stage 3 chronic kidney disease, without long-term current use of insulin 01/30/2018 Vitreous syneresis of both eyes 05/30/2015 Well adult exam 08/23/2022 PAST SURGICAL HISTORY Procedure Laterality Date COLONOSCOPY 2011 COLONOSCOPY 06/01/2022 COLONOSCOPY FLX (more content not included)... Normal [facility] CNOVon 01-29-2025 CNOV Office Visit (PODIWS ) MILTON,DAR Mode ([id number]) 1955 M Date Time Provider Department 01/29/25 10:15 AM ANI LINARES During your visit today, we recorded the following information about you: Izabela Garcia, RN 01/29/2025 12:44 PM Signed Patient presents with: Right Foot - Established Patient, Follow Up, Pain, Diabetic Foot Care Left Foot - Established Patient, Diabetic Foot Care Patient presents for right big toe pain. State that this is the same one he has seen us for previously, pain has returned as the corn has returned. Hx of neuropathy and diabetes. ROBSON 06/07/24 Ani Linares 01/29/2025 12:44 PM Signed Initial Office Visit Subjective: This 69 year old male presents to clinic for diabetic foot check. Patient has the following complaints: corn of right hallux. Patient presents to clinic with primary complaint of corn to the right great toe. He complains of annoying type pain. He has treated with corn pad. He states the pain is steadily getting worse. Patient admits to being diabetic for multiple years now. Patient +B/T/N in feet at this time. Patient is now taking gabapentin at night and that does seem to help. Patient -pain in legs when walking. No other pedal complaints at this time. No change in medications or medical history since last visit. PAIN EVALUATION No data found in the last 1 encounters. 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 07/06/2018 Basal cell carcinoma 12/02/2021 Bilateral hip pain 01/21/2023 BPH (benign prostatic hyperplasia) s/p removal Callus of foot 09/22/2023 Seeing podiatry Chronic insomnia 02/24/2019 Controlled type 2 diabetes mellitus with stage 3 chronic kidney disease, without long-term current use of insulin ([facility]) 02/24/2019 Decreased libido 01/30/2018 Degenerative retinal drusen of both eyes 05/30/2015 Diabetic eye exam (HCC) 03/18/2022 Last done 01/05/22 Non-Proliferative Diabetic Retinopathy mild [facility] (erectile dysfunction) 05/20/2021 Essential hypertension, benign 06/06/2006 Ex-smoker 05/20/2021 Started age 16, up to 1 PPD quit age 21 Gastroesophageal reflux disease with esophagitis without hemorrhage 05/20/2021 Herniated lumbar intervertebral disc History of BPH s/p removal History of depression Iron deficiency anemia 06/21/2020 Irritable bowel syndrome with both constipation and diarrhea 07/31/2021 Leg cramps 01/30/2018 Living will on file at physician's office 10/13/2022 DPA: catherine () Low testosterone in male 06/21/2020 Lumbar radiculopathy 02/24/2019 Lumbar spinal stenosis 05/18/2023 MRI 02/2023- [facility] Malignant melanoma of torso excluding breast (HCC) 02/11/2020 Metabolic dysfunction-associate d steatohepatitis (MASH) 10/17/2024 US with elstography 09/2024 was F2-F3, seeing ? 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 Along with HS's and body aches: Has FMLA for Posterior vitreous detachment of left eye 08/31/2016 Posterior vitreous detachment of right eye 09/09/2017 Renal cyst, right 08/10/2021 Simple, benign US 07/2021 Retinopathy 03/19/2022 Mild B/l Rotator cuff tear, left Senile nuclear sclerosis 05/17/2017 Senile nuclear sclerosis, bilateral 09/09/2017 Stage 3a chronic kidney disease (HCC) 07/12/2024 SVT (supraventricular tachycardia) ([facility]) 05/20/2021 Treated with Ablation: 2013 Tinnitus of both ears 12/30/2023 Type 2 diabetes mellitus with retinopathy, without long-term current use of insulin (HCC) 09/09/2017 Uncontrolled type 2 diabetes mellitus with stage 3 chronic kidney disease, without long-term current use of insulin 01/30/2018 Vitreous syneresis of both eyes 05/30/2015 Well adult exam 08/23/2022 Current Outpatient Medications Medication Sig ferrous sulfate 325 mg (65 mg iron) tablet Take 1 tablet by mouth every other day. atorvastatin (LIPITOR) 10 mg tablet Take 1 tablet by mouth daily at bedtime. For cholesterol. esomeprazole (NEXIUM) 40 mg capsule Take 1 capsule by mouth two times a day. gabapentin (NEURONTIN) 100 mg capsule Take gabapentin 100 mg in the evening for a week, then i (more content not included)... Normal [facility] Endocrinology Visit Reporton 01-28-2025 Endocrinology Visit Report [facility] [address] [place] [address] OFFICE VISIT Date of Service: 01/28/25 MR#: [id number] Acct: [id number] Name: DAR ROSE Rep #: [id number] : 1955 Provider: AKOSUA huffman Age/Sex: 69/M [place] [facility] [place] Status: Signed Intake Vital Signs 06/20/23 11:41 12/24/24 08:46 01/28/25 09:45 Height 5 ft 10.08 in 5 ft 10 in 5 ft 10 in Weight: 183 lb 182 lb 6 oz BMI 26.2 26.2 BP 116/72 132/76 H Blood Pressure Location Lt brachial Rt brachial Position Sitting Sitting Respiration 18 Pulse 68 55 L Pulse Source Monitor Monitor Pulse Oximetry (%) 98 98 Oxygen Delivery Method room air Intake Visit Reasons: Diabetes Chief Complaint: establish care- diabetes Is patient in pain?: No Allergies bee venom protein (honey bee) Allergy (Verified 12/24/24 09:22) Anaphylaxis Medications ???Medication ???Instructions ???Recorded ???Confirmed ???Type epinephrine 0.3 mg/0.3 mL 0.3 ml subcut ONCE PRN anaphylaxis 10/20/22 01/28/25 History injection, auto-injector fluticasone propionate 50 2 spray intranasal DAILY PRN nasal 10/20/22 01/28/25 History mcg/actuation nasal congestion spray,suspension amlodipine 10 mg tablet 10 mg PO DAILY #90 tabs 09/06/24 0 01/28/25 Rx carvedilol 25 mg tablet 25 mg PO BID #180 tabs 09/06/24 Rx losartan 100 mg tablet 100 mg PO DAILY #90 tabs 09/06/24 01/28/25 Rx atorvastatin 10 mg tablet (Lipitor) 10 mg PO QHS 09/24/24 01/28/25 History baclofen 10 mg tablet 10 mg PO QHS PRN pain 09/24/24 History esomeprazole magnesium 40 mg 40 mg PO DAILY #90 caps 09/24/24 0 01/28/25 Rx capsule,delayed release trazodone 100 mg tablet 50 mg PO QHS 09/24/24 01/28/25 His tory dicyclomine 10 mg capsule 10 mg PO QHS 11/15/24 01/28/25 His tory semaglutide 0.25 mg or 0.5 mg (2 0.5 mg subcut TU 11/15/24 01/28/25 History mg/3 mL) subcutaneous pen injector (Ozempic) empagliflozin 25 mg tablet 25 mg PO QAM #90 tabs 01/28/25 Rx (Jardiance) Have you fallen in the past year?: No PFSH Medical History Wears glasses Cardiology follow-up encounter Anxiety COVID-19 virus detected (07/06/21) Dyslipidemia Paroxysmal supraventricular tachycardia Type 2 diabetes mellitus Essential hypertension Superficial spreading malignant melanoma of skin Depression BPH (benign prostatic hyperplasia) Back problem GERD (gastroesophageal reflux disease) Surgical History History of radiofrequency ablation procedure for cardiac arrhythmia (2013) History of colonoscopy History of prostatectomy History of tonsillectomy History of repair of left rotator cuff Family History Mother Cancer lung Father Alzheimer disease Son Ulcerative colitis Social History Smoking Status: Former smoker how long ago did patient quit smokin years ago alcohol intake: current alcohol intake frequency: holidays/special occasions only substance use type: does not use caffeine: Yes Type: coffee HPI HPI Chief Complaint: establish care- diabetes Details: DAR ROSE, is a 69 M who presents to the office today for evaluation and management of diabetes. Patient requested referral to endocrine office. He has been seen by endocrine years prior. He was diagnosed with diabetes approximately 20+ years ago. Denies family history. Complications include neuropathy to bilateral lower extremities, retinopathy to bilateral eyes, and CKD with proteinuria. A1C on 01/16/25 with PCP was 5.7%. His diabetes has typically been well controlled. Currently taking Ozempic 0.5 mg qweek- tolerating well and metformin 1 gm once daily. BP is controlled. Currently taking amlodipine 10 mg once daily, carvedilol 25 mg BID (hx of SVT), and losartan 100 mg once daliy. He takes a daily statin. Labs are up to date and unremarkable. He denies any acute concerns. ROS Const Constitutional: No fatigue or weight change ENT ENT: No dizziness/vertigo Cardio Cardiology: No chest pain at rest, chest pain with exertion, shortness of breath or palpitations Musc Musculoskeletal: Positive for numbness (bilateral lower extremities) and tingling Neuro Neurology: Positive for numbness (bilateral lower extremities) and tingling Skin Skin: No wounds Endo Endocrine: No fatigue or weight change Exam Const General: cooperative, healthy appearing, comfortable and no acute distress Nutritional Appearance: overweight Orientation: alert, awake and oriented x3 HENMT Head: normal to inspectio (more content not included)... Normal [facility] 25(OH)D3 [facility] 25-hydroxyvitamin D3 [Mass/Vol] 33.6 ng/mL Normal 31.0-80.0 [facility] Comment on above: Order Comment: Speci men Type: BLOOD SPECIMENOrdering Facility: [facility] Address: [address] [place] [address] Result Comment: Clas sification of 25 [place] Vitamin D status: Deficiency/Insufficiency: < or = 30 ng/ml. Sufficiency/Optimal Levels: 31-80 ng/mL Toxicity: > 100 ng/mL. Test performed by chemiluminescent immunoassay. Performed By: #### 1 989-3 ####[facility] [id number] [place] [address] [place] Calcium [facility] 025 Calcium [Mass/Vol] 9.7 mg/dL Normal 8.5-10.2 [facility] Comment on above: Order Comment: Speci men Type: BLOOD SPECIMENOrdering Facility: [facility] Address: [address] [place] [address] Performed By: #### 1 7861-6, 2731-8 ####[facility] [id number] [place] [address] [place] PTH-Intact [facility] - Parathyrin.intact [Mass/Vol] 35 pg/mL Normal 15-65 [facility] Comment on above: Order Comment: Speci men Type: BLOOD SPECIMENOrdering Facility: [facility] Address: [address] [place] [address] Performed By: #### 1 7861-6, 2731-8 ####[facility] [id number] [place] [address] [place] ALBUMIN/CREATININE RATIO, UR INEon 01-16-2025 Albumin DL <= 20 mg/L (U) [Mass/Vol] mg/dL Normal [facility] Comment on above: Order Comment: Speci men Type: URINE SPECIMENOrdering Facility: [facility] Address: [address] [place] [address] Performed By: #### U ACR ####[facility] [id number] [place] [address] [place] Albumin/Creatinine (U) [Mass ratio] <15 Normal <30 [facility] Comment on above: Order Comment: Speci men Type: URINE SPECIMENOrdering Facility: [facility] Address: [address] [place] [address] Result Comment: Adul t Male and Female Nephrotic Criteria: <30 mg/g is considered normal to mildly increased 30-300 mg/g is considered moderately increased >300 mg/g is considered severely increased KDIGO. (2013). KDIGO 2012 Clinical Practice Guideline for the Evaluation and Management of Chronic Kidney Disease. Official Journal of the International Society of Nephrology, 3(1), 1-150. Performed By: #### U ACR ####[facility] [id number] [place] [address] [place] Creatinine (U) [Mass/Vol] 82.7 mg/dL Normal 20.0-300.0 [facility] Comment on above: Order Comment: Speci men Type: URINE SPECIMENOrdering Facility: [facility] Address: [address] [place] [address] Performed By: #### U ACR ####[facility] [id number] [address], [facility]95 [place] CBC W Auto Differential pane l (Bld)on 01-16-2025 Basophils (Bld) [#/Vol] 0.05 10*3/uL Normal <0.11 [facility] Comment on above: Order Comment: Speci men Type: BLOOD SPECIMENOrdering Facility: [facility] Address: [address] [place] [address] Performed By: #### 5 7021-8 ####[facility] [id number] [address], [place] [address] [place] Basophils/100 WBC (Bld) 0.8 % Normal [facility] Comment on above: Order Comment: Speci men Type: BLOOD SPECIMENOrdering Facility: [facility] Address: [address] [place] [address] Performed By: #### 5 7021-8 ####[facility] [id number] [place] [address] [place] Differential cell count method Nom (Bld) Auto Normal [facility] Comment on above: Order Comment: Speci men Type: BLOOD SPECIMENOrdering Facility: [facility] Address: [address] [place] [address] Performed By: #### 5 7021-8 ####[facility] [id number] [place] [address] [place] Eosinophils (Bld) [#/Vol] 0.18 10*3/uL Normal <0.46 [facility] Comment on above: Order Comment: Speci men Type: BLOOD SPECIMENOrdering Facility: [facility] Address: [address] [place] [address] Performed By: #### 5 7021-8 ####[facility] [id number] [place] [address] [place] Eosinophils/100 WBC (Bld) 2.7 % Normal [facility] Comment on above: Order Comment: Speci men Type: BLOOD SPECIMENOrdering Facility: [facility] Address: [address] [place] [address] Performed By: #### 5 7021-8 ####[facility] [id number] [place] [address] [place] Erythrocyte distribution width (RBC) [Ratio] 13.2 % Normal 11.5-15.0 [facility] Comment on above: Order Comment: Speci men Type: BLOOD SPECIMENOrdering Facility: [facility] Address: [address] [place] [address] Performed By: #### 5 7021-8 ####[facility] [id number] [place] [address] [place] Hematocrit (Bld) [Volume fraction] 39.5 % Normal 39.0-51.0 [facility] Comment on above: Order Comment: Speci men Type: BLOOD SPECIMENOrdering Facility: [facility] Address: [address] [place] [address] Performed By: #### 5 7021-8 ####[facility] [id number] [place] [address] [place] Hemoglobin (Bld) [Mass/Vol] 12.9 g/dL Low 13.0-17.0 [facility] Comment on above: Order Comment: Speci men Type: BLOOD SPECIMENOrdering Facility: [facility] Address: [address] [place] [address] Performed By: #### 5 7021-8 ####[facility] [id number] [place] [address] [place] Immature granulocytes (Bld) [#/Vol] 0.03 10*3/uL Normal <0.10 [facility] Comment on above: Order Comment: Speci men Type: BLOOD SPECIMENOrdering Facility: [facility] Address: [address] [place] [address] Performed By: #### 5 7021-8 ####[facility] [id number] [place] [address] [place] Immature granulocytes/100 WBC (Bld) 0.5 % Normal [facility] Comment on above: Order Comment: Speci men Type: BLOOD SPECIMENOrdering Facility: [facility] Address: [address] [place] [address] Performed By: #### 5 7021-8 ####[facility] [id number] [place] [address] [place] Lymphocytes (Bld) [#/Vol] 1.37 10*3/uL Normal 1.00-4.00 [facility] Comment on above: Order Comment: Speci men Type: BLOOD SPECIMENOrdering Facility: [facility] Address: [address] [place] [address] Performed By: #### 5 7021-8 ####[facility] [id number] [place] [address] [place] Lymphocytes/100 WBC (Bld) 20.7 % Normal [facility] Comment on above: Order Comment: Speci men Type: BLOOD SPECIMENOrdering Facility: [facility] Address: [address] [place] [address] Performed By: #### 5 7021-8 ####[facility] [id number] [place] [address] [place] MCH (RBC) [Entitic mass] 28.8 pg Normal 26.0-34.0 [facility] Comment on above: Order Comment: Speci men Type: BLOOD SPECIMENOrdering Facility: [facility] Address: [address] [place] [address] Performed By: #### 5 7021-8 ####[facility] [id number] [place] [id number] [place] MCHC (RBC) [Mass/Vol] 32.7 g/dL Normal 30.5-36.0 [facility] Comment on above: Order Comment: Speci men Type: BLOOD SPECIMENOrdering Facility: [facility] Address: [address] [place] [address] Performed By: #### 5 7021-8 ####[facility] [id number] [address] [address] [place] MCV (RBC) [Entitic vol] 88.2 fL Normal 80.0-100.0 [facility] Comment on above: Order Comment: Speci men Type: BLOOD SPECIMENOrdering Facility: [facility] Address: [address] [place] [address] Performed By: #### 5 7021-8 ####[facility] [id number] [place] [address] [place] Monocytes (Bld) [#/Vol] 0.60 10*3/uL Normal <0.87 [facility] Comment on above: Order Comment: Speci men Type: BLOOD SPECIMENOrdering Facility: [facility] Address: [address] [place] [address] Performed By: #### 5 7021-8 ####[facility] [id number] [place] [address] [place] Monocytes/100 WBC (Bld) 9.0 % Normal [facility] Comment on above: Order Comment: Speci men Type: BLOOD SPECIMENOrdering Facility: [facility] Address: [address] [place] [address] Performed By: #### 5 7021-8 ####[facility] [id number] [place] [address] [place] Neutrophils (Bld) [#/Vol] 4.40 10*3/uL Normal 1.45-7.50 [facility] Comment on above: Order Comment: Speci men Type: BLOOD SPECIMENOrdering Facility: [facility] Address: [address] [place] [address] Performed By: #### 5 7021-8 ####[facility] [id number] [place] [address] [place] Neutrophils/100 WBC (Bld) 66.3 % Normal [facility] Comment on above: Order Comment: Speci men Type: BLOOD SPECIMENOrdering Facility: [facility] Address: [address] [place] [address] Performed By: #### 5 7021-8 ####[facility] [id number] [place] [address] [place] Nucleated RBC (Bld) [#/Vol] 10*3/uL Normal <0.01 [facility] Comment on above: Order Comment: Speci men Type: BLOOD SPECIMENOrdering Facility: [facility] Address: [address] [place] [address] Performed By: #### 5 7021-8 ####[facility] [id number] [place] [address] [place] Nucleated RBC/100 WBC (Bld) [Ratio] 0.0 /100 WBC Normal [facility] Comment on above: Order Comment: Speci men Type: BLOOD SPECIMENOrdering Facility: [facility] Address: [address] [place] [address] Performed By: #### 5 7021-8 ####[facility] [id number] [place] [address] [place] Platelet mean volume (Bld) [Entitic vol] 10.4 fL Normal 9.0-12.7 [facility] Comment on above: Order Comment: Speci men Type: BLOOD SPECIMENOrdering Facility: [facility] Address: [address] [place] [address] Performed By: #### 5 7021-8 ####[facility] [id number] [place] [address] [place] Platelets (Bld) [#/Vol] 308 10*3/uL Normal 150-400 [facility] Comment on above: Order Comment: Speci men Type: BLOOD SPECIMENOrdering Facility: [facility] Address: [address] [place] [address] Performed By: #### 5 7021-8 ####[facility] [id number] [place] [address] [place] RBC (Bld) [#/Vol] 4.48 10*6/uL Normal 4.20-6.00 [facility] Comment on above: Order Comment: Speci men Type: BLOOD SPECIMENOrdering Facility: [facility] Address: [address] [place] [address] Performed By: #### 5 7021-8 ####[facility] [id number] [place] [address] [place] WBC (Bld) [#/Vol] 6.63 10*3/uL Normal 3.70-11.00 [facility] Comment on above: Order Comment: Speci men Type: BLOOD SPECIMENOrdering Facility: [facility] Address: [address] [place] [address] Performed By: #### 5 7021-8 ####[facility] [id number] [place] [address] [place] CNOVon 01-16-2025 CNOV Office Visit (FAMPWS ) DAR ROSE ([id number]) 1955 M Date Time Provider Department 01/16/25 8:00 AM CRUZ PRADO FAMPWS During your visit today, we recorded the following information about you: Pulse Respiration Blood pressure Weight 72/minute 16/minute 118/70 81.2 kg Height 1.74 m Cruz Prado MD 01/16/2025 9:48 AM Signed Chief Complaint Patient presents with: Physical HPI Dar Rose is a 69 year old male who presents here today for Physical. Patient with hx of HTN, hyperlipidemia, SVT, DM2, CKD, Matthew's melanoma, and those as below. Ref Range AND Units 1 mo ago (11/21/24) 7 mo ago (05/28/24) 1 yr ago (11/25/23) 1 yr ago (05/09/23) 2 yr ago (09/29/22) 2 yr ago (04/02/22) 3 yr ago (11/06/21) Hemoglobin A1C 4.3 - 5.6 % 5.7 High 6.3 High CM 6.3 High CM 6.3 High CM 6.0 High CM 6.0 High CM 6.9 High CM Comment: [place] [employer] guidelines indicate that patients with HgbA1c in the range 5.7-6.4% ar Patient sees Podiatry next visit 01/2025 Patient sees Ophthalmology last visit 05/[address] Abdi in [facility] for his MASH. Last 6 Encounter BP Readings: Date: BP: 07/12/2024 148/78 05/02/2024 130/70 04/12/2024 158/80 04/04/2024 120/64 04/02/2024 134/68 01/31/2024 142/80 Patient has been doing ok. Has noted he sometimes needs an extra dose of nexiu inj the evenings and would like to have his script adjust to support this when needed. He would also like to see if he can try something different then the trazodone for sleep since it makes him feel groggy the next day. Otherwise has been on the same medication for about 6 years with good benefit. He is also noting increased neuropathy in both feet at night which affects his sleep. Past medical history, appointments, medications, allergies reviewed. 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 07/06/2018 Basal cell carcinoma 12/02/2021 Bilateral hip pain 01/21/2023 BPH (benign prostatic hyperplasia) s/p removal Callus of foot 09/22/2023 Seeing podiatry Chronic insomnia 02/24/2019 Controlled type 2 diabetes mellitus with stage 3 chronic kidney disease, without long-term current use of insulin (HCC) 02/24/2019 Decreased libido 01/30/2018 Degenerative retinal drusen of both eyes 05/30/2015 Diabetic eye exam (HCC) 03/18/2022 Last done 01/05/22 Non-Proliferative Diabetic Retinopathy mild [facility] (erectile dysfunction) 05/20/2021 Essential hypertension, benign 06/06/2006 Ex-smoker 05/20/2021 Started age 16, up to 2 PPD quit age 21 Gastroesophageal reflux disease with esophagitis without hemorrhage 05/20/2021 Herniated lumbar intervertebral disc History of BPH s/p removal History of depression Iron deficiency anemia 06/21/2020 Irritable bowel syndrome with both constipation and diarrhea 07/31/2021 Leg cramps 01/30/2018 Living will on file at physician's office 10/13/2022 DPA: catherine () Low testosterone in male 06/21/2020 Lumbar radiculopathy 02/24/2019 Lumbar spinal stenosis 05/18/2023 MRI 02/2023- [facility] Malignant melanoma of torso excluding breast (HCC) 02/11/2020 Metabolic dysfunction-associate d steatohepatitis (MASH) 10/17/2024 US with elstography 09/2024 was F2-F3, seeing ? 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 Along with HS's and body aches: Has FMLA for Posterior vitreous detachment of left eye 08/31/2016 Posterior vitreous detachment of right eye 09/09/2017 Renal cyst, right 08/10/2021 Simple, benign US 07/2021 Retinopathy 03/19/2022 Mild B/l Rotator cuff tear, left Senile nuclear sclerosis 05/17/2017 Senile nuclear sclerosis, bilateral 09/09/2017 SVT (supraventricular tachycardia) (HCC) 05/20/2021 Treated with Ablation: 2013 Tinnitus of both ears 12/30/2023 Type 2 diabetes mellitus with retinopathy, without long-term current use of insulin (HCC) 09/09/2017 Uncontrolled type 2 diabetes mellitus with stage 3 chronic kidney disease, without long-term current use of insulin 01/30/2018 Vitreous syneresis of both eyes 05/30/2015 Well adult exam 08/23/2022 Previous Surgical History PAST SURGICAL HISTORY Procedure Laterality Date COLONOSCOPY 2012 COLONOSCOPY 06/01/2022 COLONOSCOPY FLX DX W/COLLJ SPEC WHEN PFRMD 08/21/2018 repeat 5 years EGD (more content not included)... Normal [facility] Comprehensive metabolic 2000 panelon 01-16-2025 Albumin [Mass/Vol] 4.6 g/dL Normal 3.9-4.9 [facility] Comment on above: Order Comment: Speci men Type: BLOOD SPECIMENOrdering Facility: [facility] Address: [address] [place] [address] Performed By: #### 2 4323-8, 39908-7, LIPNF, 20744-4 ####[facility] [id number] [place] [address] [place] ALP [Catalytic activity/Vol] 55 U/L Normal 38-113 [facility] Comment on above: Order Comment: Speci men Type: BLOOD SPECIMENOrdering Facility: [facility] Address: [address] [place] [address] Performed By: #### 2 4323-8, 81955-3, LIPNF, 90519-4 ####[facility] [id number] [place] [id number] [place] ALT [Catalytic activity/Vol] 26 U/L Normal 10-54 [facility] Comment on above: Order Comment: Speci men Type: BLOOD SPECIMENOrdering Facility: [facility] Address: [address] [place] [address] Performed By: #### 2 4323-8, 44533-8, LIPNF, 92179-4 ####[facility] [id number] [address] [address] [place] Anion gap [Moles/Vol] 11 mmol/L Normal 8-15 [facility] Comment on above: Order Comment: Speci men Type: BLOOD SPECIMENOrdering Facility: [facility] Address: [address] [place] [address] Performed By: #### 2 4323-8, 04521-7, LIPNF, 16542-5 ####[facility] [id number] [place] [address] [place] AST [Catalytic activity/Vol] 27 U/L Normal 14-40 [facility] Comment on above: Order Comment: Speci men Type: BLOOD SPECIMENOrdering Facility: [facility] Address: [address] [place] [address] Performed By: #### 2 4323-8, 58715-7, LIPNF, 92638-3 ####[facility] [id number] [place] [id number] [place] Bilirubin [Mass/Vol] 0.3 mg/dL Normal 0.2-1.3 [facility] Comment on above: Order Comment: Speci men Type: BLOOD SPECIMENOrdering Facility: [facility] Address: [address] [place] [address] Performed By: #### 2 4323-8, 53048-7, LIPNF, 97109-8 ####[facility] [id number] [place] [id number] [place] Calcium [Mass/Vol] 10.8 mg/dL High 8.5-10.2 [facility] Comment on above: Order Comment: Speci men Type: BLOOD SPECIMENOrdering Facility: [facility] Address: [address] [place] [address] Performed By: #### 2 4323-8, 65020-1, LIPNF, 33965-9 ####[facility] [id number] [address] [address] [place] Chloride [Moles/Vol] 102 mmol/L Normal 98-107 [facility] Comment on above: Order Comment: Speci men Type: BLOOD SPECIMENOrdering Facility: [facility] Address: [address] [place] [address] Performed By: #### 2 4323-8, 67267-4, LIPNF, 97409-0 ####[facility] [id number] [place] [address] [place] CO2 [Moles/Vol] 26 mmol/L Normal 22-30 [facility] Comment on above: Order Comment: Speci men Type: BLOOD SPECIMENOrdering Facility: [facility] Address: [address] [place] [address] Performed By: #### 2 4323-8, 12097-7, LIPNF, 31893-6 ####[facility] [id number] [place] [address] [place] Creatinine [Mass/Vol] 1.58 mg/dL High 0.73-1.22 [facility] Comment on above: Order Comment: Speci men Type: BLOOD SPECIMENOrdering Facility: [facility] Address: [address] [place] [address] Performed By: #### 2 4323-8, 69843-6, LIPNF, 35402-7 ####[facility] [id number] [place] [id number] [place] Creatinine and Glomerular filtration rate.predicted panel (S/P/Bld) 46 mL/min/1.73m??? Low >=60 [facility] Comment on above: Order Comment: Speci men Type: BLOOD SPECIMENOrdering Facility: [facility] Address: [address] [place], [place] [address] Result Comment: Rosalba mated Glomerular Filtration Rate (eGFR) is calculated using the 2020 CKD-EPI creatinine equation. This equation utilizes serum creatinine, sex, and age as parameters. The creatinine assay has traceable calibration to isotope dilution-mass spectrometry. Refer to KDIGO guidelines for clinical interpretation. In patients with unstable renal function, e.g. those with acute kidney injury, the eGFR may not accurately reflect actual GFR. Performed By: #### 2 4323-8, 98349-7, STEPHANE, 71018-5 ####[facility] [id number] [address] [address] [place] Glucose [Mass/Vol] 74 mg/dL Normal 74-99 [facility] Comment on above: Order Comment: Morena edwards Type: BLOOD SPECIMENOrdering Facility: [facility] [facility] Address: [address] [place] [address] Result Comment: The [place] Diabetes Association (ADA) provides guidance for cutoff values for fasting glucose and random glucose. The ADA defines fasting as no caloric intake for at least 8 hours. Fasting plasma glucose results between 100 to 125 mg/dL indicate increased risk for diabetes (prediabetes). Fasting plasma glucose results greater than or equal to 126 mg/dL meet the criteria for diagnosis of diabetes. In the absence of unequivocal hyperglycemia, results should be confirmed by repeat testing. In a patient with classic symptoms of hyperglycemia or hyperglycemic crisis, random plasma glucose results greater than or equal to 200 mg/dL meet the criteria for diagnosis of diabetes. Reference: Standards of Medical Care in Diabetes 2016, [place] Diabetes Association. Diabetes Care. 2016.39(Suppl 1). Performed By: #### 2 4323-8, 53700-1, STEPHANE, 97183-6 ####[facility] [id number] [address] [address] [place] Potassium [Moles/Vol] 5.0 mmol/L Normal 3.7-5.1 [facility] Comment on above: Order Comment: Speci men Type: BLOOD SPECIMENOrdering Facility: [facility] Address: [address] [place] [address] Performed By: #### 2 3-8, 47761-9, LIPNF, 74034-8 ####[facility] [id number] [address] [address] [place] Protein [Mass/Vol] 7.0 g/dL Normal 6.3-8.0 [facility] Comment on above: Order Comment: Speci men Type: BLOOD SPECIMENOrdering Facility: [facility] Address: [address] [place] [address] Performed By: #### 2 4323-8, 77388-6, LIPNF, 75018-4 ####[facility] [id number] [place] [id number] [place] Sodium [Moles/Vol] 139 mmol/L Normal 136-144 [facility] Comment on above: Order Comment: Speci men Type: BLOOD SPECIMENOrdering Facility: [facility] Address: [address] [place] [address] Performed By: #### 2 4323-8, 34164-3, LIPNF, 94027-5 ####[facility] [id number] [place] [id number] [place] Urea nitrogen [Mass/Vol] 28 mg/dL High 9-24 [facility] Comment on above: Order Comment: Speci men Type: BLOOD SPECIMENOrdering Facility: [facility] Address: [address] [place] [address] Performed By: #### 2 4323-8, 36370-9, LIPNF, 50873-4 ####[facility] [id number] [address] [address] [place] HbA1c (Bld)on 01-16-2025 Average glucose Estimated from glycated hemoglobin (Bld) [Mass/Vol] 117 mg/dL Normal [facility] Comment on above: Order Comment: Speci men Type: BLOOD SPECIMENOrdering Facility: [facility] Address: [address] [place] [address] Result Comment: eAG: (Estimated average glucose) is a calculated value from HgbA1c and is client care representative of the average blood glucose level in the last 2-3 month period. Performed By: #### 5 5454-3 ####[facility] [id number] [place] [address] [place] HbA1c (Bld) [Mass fraction] 5.7 % High 4.3-5.6 [facility] Comment on above: Order Comment: Speci men Type: BLOOD SPECIMENOrdering Facility: [facility] Address: [address] [place] [address] Result Comment: Amer [place] Diabetes Association guidelines indicate that patients with HgbA1c in the range 5.7-6.4% are at increased risk for development of diabetes, and intervention by lifestyle modification may be beneficial. HgbA1c greater or equal to 6.5% is considered diagnostic of diabetes. Performed By: #### 5 5454-3 ####[facility] [id number] [place] [address] [place] Iron and Iron binding capaci ty panelon 01-16-2025 Iron [Mass/Vol] 63 ug/dL Normal 41-186 [facility] Comment on above: Order Comment: Speci men Type: BLOOD SPECIMENOrdering Facility: [facility] Address: [address] [place] [address] Performed By: #### 2 4323-8, 75065-0, LIPNF, 96268-1 ####[facility] [id number] [address] [place] Iron binding capacity [Mass/Vol] 412 ug/dL High 232-386 [facility] Comment on above: Order Comment: Speci men Type: BLOOD SPECIMENOrdering Facility: [facility] Address: [address] [place] [address] Performed By: #### 2 4323-8, 31328-2, LIPNF, 26967-2 ####[facility] [id number] [place] [id number] [place] Iron/TIBC [Molar ratio] 15.3 % Normal 15.0-57.0 [facility] Comment on above: Order Comment: Speci men Type: BLOOD SPECIMENOrdering Facility: [facility] Address: [address] [place] [address] Performed By: #### 2 4323-8, 75823-8, LIPNF, 98433-5 ####[facility] [id number] [address], [address] [place] LIPID PANEL, NONFASTINGon Cholesterol [Mass/Vol] 138 mg/dL Normal <200 [facility] Comment on above: Order Comment: Speci men Type: BLOOD SPECIMENOrdering Facility: [facility] Address: [address] [place] [address] Result Comment: <200 mg/dL, Desirable 200-239 mg/dL, Borderline high >239 mg/dL, High Performed By: #### 2 4323-8, 11019-4, LIPNF, 42245-8 ####[facility] [id number] [place] [id number] [place] HDL CHOLESTEROL, NF 38 mg/dL Low >39 [facility] Comment on above: Order Comment: Speci men Type: BLOOD SPECIMENOrdering Facility: [facility] Address: [address] [place] [address] Result Comment: 40-5 9 mg/dL, Acceptable >59 mg/dL, High: Negative risk factor for coronary heart disease <40 mg/dL, Low: Positive risk factor for coronary heart disease Performed By: #### 2 4323-8, 93527-8, LIPNF, 77947-0 ####[facility] [id number] [place] [id number] [place] LDL CHOLESTEROL, NF 83 mg/dL Normal <100 [facility] Comment on above: Order Comment: Speci men Type: BLOOD SPECIMENOrdering Facility: [facility] Address: [address] [place] [address] Result Comment: <100 mg/dL, Optimal 100-129 mg/dL, Near optimal/above optimal 130-159 mg/dL, Borderline high 160-189 mg/dL, High >189 mg/dL, Very high Secondary prevention optimal LDL Cholesterol levels are recommended to be < 70 mg/dL Performed By: #### 2 4323-8, 61178-2, LIPNF, 24887-2 ####[facility] [id number] [address] OF [facility] LDL/HDL RATIO, NF 2.18 mg/dL Normal <2.54 [facility] Comment on above: Order Comment: Speci men Type: BLOOD SPECIMENOrdering Facility: [facility] Address: [address] [place] [address] Result Comment: Refe rence: 1. National Cholesterol Education Program ATP III Guideline At-A-Glance Quick Desk Reference: National Heart, Lung, and Blood Stearns. National Institutes of Health. 2001: NIH Publication No. 01-3305. 2. An International Atherosclerosis Society position paper: global recommendations for the management of dyslipidemia: executive summary, Atherosclerosis. 2014: 232(2):410-413. Performed By: #### 2 4323-8, 07646-5, LIPNF, 16809-5 ####[facility] [id number] [address] [place] NON HDL CHOL, NF 100 mg/dL Normal <130 [facility] Comment on above: Order Comment: Morena men Type: BLOOD SPECIMENOrdering Facility: [facility] Address: [address] [place] [address] Result Comment: <130 mg/dL, Optimal 130-159 mg/dL, Near optimal/above optimal 160-189 mg/dL, Borderline high 190-219 mg/dL, High >219 mg/dL, Very high Secondary prevention optimal non HDL Cholesterol levels are recommended to be <100 mg/dL Performed By: #### 2 4323-8, 96560-0, LIPNF, 30868-7 ####[facility] [id number] [address] [place] [address] [place] T CHOL/HDL RATIO NF 3.63 mg/dL Normal <5.10 [facility] Comment on above: Order Comment: Speci men Type: BLOOD SPECIMENOrdering Facility: [facility] Address: [address] [place] [address] Performed By: #### 2 4323-8, , LIPNF, 20225-5 ####[facility] [id number] [address] [address] [place] TRIGLYCERIDES, NF 86 mg/dL Normal <150 [facility] Comment on above: Order Comment: Speci men Type: BLOOD SPECIMENOrdering Facility: [facility] Address: [address] [place] [address] Result Comment: <150 mg/dL, Normal 150-199 mg/dL, Borderline high 200-499 mg/dL, High >499 mg/dL, Very high Performed By: #### 2 4323-8, , LIPNF, 91584-7 ####[facility] [id number] [place] [id number] [place] VLDL CHOLESTEROL, NF 17 mg/dL Normal <30 [facility] Comment on above: Order Comment: Speci men Type: BLOOD SPECIMENOrdering Facility: [facility] Address: [address] [place] [address] Performed By: #### 2 4323-8, , LIPNF, 20193-0 ####[facility] [id number] [address] [place] [address] [place] Magnesium SerPl-mCncon 01-16 Magnesium [Mass/Vol] 2.0 mg/dL Normal 1.7-2.3 [facility] Comment on above: Order Comment: Speci men Type: BLOOD SPECIMENOrdering Facility: [facility] Address: [address] [place] [address] Performed By: #### 2 4323-8, 44317-4, LIPNF, 46456-8 ####[facility] [id number] [address], [facility]95 [place] Urinalysis complete panel (U )on 01-16-2025 Bacteria LM.HPF (Urine sed) [#/Area] Negative Normal Negative [facility] Comment on above: Order Comment: Speci men Type: URINE SPECIMENOrdering Facility: [facility] Address: [address] [place] [address] Performed By: #### 2 4356-8 ####[facility] [id number] [place] [address] [place] Bilirubin Ql (U) Negative Normal Negative [facility] Comment on above: Order Comment: Speci men Type: URINE SPECIMENOrdering Facility: [facility] Address: [address] [place] [address] Performed By: #### 2 4356-8 ####[facility] [id number] [place] [phone] [place] Clarity (Unsp spec) Clear Normal Clear [facility] Comment on above: Order Comment: Speci men Type: URINE SPECIMENOrdering Facility: [facility] Address: [address] [place] [address] Performed By: #### 2 4356-8 ####[facility] [id number] [place] [id number] [place] [facility] Color (U) Yellow Normal Yellow [facility] Comment on above: Order Comment: Speci men Type: URINE SPECIMENOrdering Facility: [facility] Address: [address] [place] [address] Performed By: #### 2 4356-8 ####[facility] [id number] [address] [place] [address] [place] Epithelial cells LM.HPF (Urine sed) [#/Area] None Seen Normal [facility] Comment on above: Order Comment: Speci men Type: URINE SPECIMENOrdering Facility: [facility] Address: [address] [place] [address] Performed By: #### 2 4356-8 ####[facility] [id number] [address] [place] [address] [place] Glucose Test strip (U) [Mass/Vol] Negative Normal Negative [facility] Comment on above: Order Comment: Speci men Type: URINE SPECIMENOrdering Facility: [facility] Address: [address] [place] [address] Performed By: #### 2 4356-8 ####[facility] [id number] [address], [place] [address] [place] Hemoglobin Ql (U) Negative Normal Negative [facility] Comment on above: Order Comment: Speci men Type: URINE SPECIMENOrdering Facility: [facility] Address: [address] [place] [address] Performed By: #### 2 4356-8 ####[facility] [id number] [address], [place] [address] [place] Hyaline casts (Urine sed) [#/Area] 0 /[LPF] Normal 0 /LPF [facility] Comment on above: Order Comment: Speci men Type: URINE SPECIMENOrdering Facility: [facility] Address: [address] [place] [address] Performed By: #### 2 4356-8 ####[facility] [id number] [address] [place] [address] [place] Ketones Ql (U) Negative Normal Negative [facility] Comment on above: Order Comment: Speci men Type: URINE SPECIMENOrdering Facility: [facility] Address: [address] [place] [address] Performed By: #### 2 4356-8 ####[facility] [id number] [place] [address] [place] Leukocyte esterase Test strip Ql (U) Negative Normal Negative [facility] Comment on above: Order Comment: Speci men Type: URINE SPECIMENOrdering Facility: [facility] Address: [address] [place] [address] Performed By: #### 2 4356-8 ####[facility] [id number] [place] [address] [place] Nitrite Ql (U) Negative Normal Negative [facility] Comment on above: Order Comment: Speci men Type: URINE SPECIMENOrdering Facility: [facility] Address: [address] [place] [address] Performed By: #### 2 4356-8 ####[facility] [id number] [place] [address] [place] pH (U) 6.0 [pH] Normal <8.5 [facility] Comment on above: Order Comment: Speci men Type: URINE SPECIMENOrdering Facility: [facility] Address: [address] [place] [address] Performed By: #### 2 4356-8 ####[facility] [id number] [place] [address] [place] Protein (U) [Mass/Vol] Negative Normal Negative [facility] Comment on above: Order Comment: Speci men Type: URINE SPECIMENOrdering Facility: [facility] Address: [address] [place] [address] Performed By: #### 2 4356-8 ####[facility] [id number] [place] [address] [place] RBC LM.HPF (Urine sed) [#/Area] 0-2 /HPF Normal 0-2 /HPF [facility] Comment on above: Order Comment: Speci men Type: URINE SPECIMENOrdering Facility: [facility] Address: [address] [place] [address] Performed By: #### 2 4356-8 ####[facility] [id number] [place] [address] [place] Specific gravity (U) [Rel density] 1.016 Normal 1.005-1.030 [facility] Comment on above: Order Comment: Speci men Type: URINE SPECIMENOrdering Facility: [facility] Address: [address] [place] [address] Performed By: #### 2 4356-8 ####[facility] [id number] [place] [address] [place] Urobilinogen Ql (U) 0.2 EU/dL Normal 0.2-1.0 EU/dL [facility] Comment on above: Order Comment: Speci men Type: URINE SPECIMENOrdering Facility: [facility] Address: [address] [place] [address] Performed By: #### 2 4356-8 ####[facility] [id number] [place] [address] [place] WBC LM.HPF (Urine sed) [#/Area] 0-5 /HPF Normal 0-5 /HPF [facility] Comment on above: Order Comment: Speci men Type: URINE SPECIMENOrdering Facility: [facility] Address: [address] [place] [address] Performed By: #### 2 4356-8 ####[facility] [id number] [place] [address] [place] Vit [facility]2 025 Cobalamin (Vitamin B12) [Mass/Vol] 725 pg/mL Normal 232-1245 [facility] Comment on above: Order Comment: Speci men Type: BLOOD SPECIMENOrdering Facility: [facility] Address: [address] [place] [address] Performed By: #### 2 132-9 ####[facility] [id number] [address] [address] [place] Cardiology Visit Reporton Cardiology Visit Report [facility] [address] [place], [place] [address] OFFICE VISIT Date of Service: 12/24/24 MR#: [id number] Acct: [id number] Name: DAR ROSE Rep #: [id number] : 1955 Provider: EDY Flores Age/Sex: 69/M Location: [facility] Status: Signed HPI HPI History of Present Illness Details: Dar Rose is a 69-year-old male who presents to the office today for a cardiovascular visit. 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 He had undergone radiofrequency ablation in 2013. Since then he has had hypertension in addition to dyslipidemia. He did undergo an echocardiographic in 2021 evaluation which demonstrated an ejection fraction of 60% with mild concentric hypertrophy. He was last seen in the office in 2021. 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 He is retired from [employer]. From a cardiac standpoint, patient is doing well. He does not have any chest discomfort/heaviness/ tightness. His exercise tolerance is stable for his age. He does not have any worsening symptoms of shortness of breath. He denies any PND. He does not have any orthopnea. He does not have any symptoms of congestive heart failure. He does rarely have palpitations. He does sometimes have positional dizziness. He does not have any near-syncope or syncope. He does not have any lower extremity edema. He does not have any symptoms of claudication. Intake Vital Signs 06/20/23 11:41 12/24/24 08:46 Height 5 ft 10.08 in 5 ft 10 in Weight: 183 lb BMI 26.2 BP 116/72 Blood Pressure Location Lt brachial Position Sitting Respiration 18 Pulse 68 Pulse Source Monitor Pulse Oximetry (%) 98 Intake Visit Reasons: 1 Y [employer] Required: No Is patient in pain?: No Allergies tramadol Allergy (Mild, Verified 12/24/24 09:22) rash amitriptyline Allergy (Verified 12/24/24 09:22) Hives bee venom protein (honey bee) Allergy (Verified 12/24/24 09:22) Anaphylaxis Medications ???Medication ???Instructions ???Recorded ???Confirmed ???Type metformin 1,000 mg tablet 1,000 mg PO BIDCM 10/21/21 5 History epinephrine 0.3 mg/0.3 mL 0.3 ml subcut ONCE PRN anaphylaxis 10/20/22 12/24/24 History injection, auto-injector fluticasone propionate 50 2 spray intranasal DAILY PRN nasal 10/20/22 12/24/24 History mcg/actuation nasal congestion spray,suspension amlodipine 10 mg tablet 10 mg PO DAILY #90 tabs 09/06/24 0 12/24/24 Rx carvedilol 25 mg tablet 25 mg PO BID #180 tabs 09/06/24 Rx losartan 100 mg tablet 100 mg PO DAILY #90 tabs 09/06/24 12/24/24 Rx atorvastatin 10 mg tablet (Lipitor) 10 mg PO QHS 09/24/24 12/24/24 History baclofen 10 mg tablet 10 mg PO QHS PRN pain 09/24/24 History esomeprazole magnesium 40 mg 40 mg PO DAILY #90 caps 09/24/24 0 12/24/24 Rx capsule,delayed release trazodone 100 mg tablet 50 mg PO QHS 09/24/24 11/27/24 His tory dicyclomine 10 mg capsule 10 mg PO QHS 11/15/24 12/24/24 His tory semaglutide 0.25 mg or 0.5 mg (2 0.5 mg subcut TU 11/15/24 12/24/24 History mg/3 mL) subcutaneous pen injector (Ozempic) Ejection fraction %: 60 Have you fallen in the past year?: No [facility] Medical History (Updated 12/24/24 @ 09:51 by Lucrecia SNOW, PA) Wears glasses Cardiology follow-up encounter Anxiety COVID-19 virus detected (07/06/21) Dyslipidemia Paroxysmal supraventricular tachycardia Type 2 diabetes mellitus Essential hypertension Superficial spreading malignant melanoma of skin Depression BPH (benign prostatic hyperplasia) Back problem GERD (gastroesophageal reflux disease) Surgical History History of radiofrequency ablation procedure for cardiac arrhythmia (2014) History of colonoscopy History of prostatectomy History of tonsillectomy History of repair of left rotator cuff Family History Mother Cancer lung Father Alzheimer disease Son Ulcerative colitis Social History Smoking Status: Former smoker how long ago did patient quit smokin years ago alcohol intake: current alcohol intake frequency: holidays/special occasions only substance use type: does not use caffeine: Yes Type: coffee ROS Const Const: Negative for fatigue, weakness, body ache, fever(s), headache(s), chills, frequent falls, night sweats, daytime sleepiness, difficulty sleeping, excessive sweating, weight gain, weight loss, increased appetite, poor appetite, ano (more content not included)... [facility] DAR ROSE ([id number]) 1955 M Date Time Provider Department 12/12/24 8:15 AM JEFFERY BROTHERS [facility] During your visit today, we recorded the following information about you: Temperature Pulse Respiration Blood pressure 97 degrees 69/minute 18/minute 148/75 Weight 83.3 kg Jeffery Brothers PA-C 12/12/2024 8:36 AM Signed This note was created using [employer]. Subjective Dar Rose is a 69 year old male. Patient is a 69-year-old male who complains of ongoing and worsening congestion, sinus pressure, ear fullness, sore throat and cough that he has been experiencing for the past 2 weeks. Patient denies fever, chills or myalgia. Patient did get the influenza vaccine and states he had been feeling in good health prior to onset of his sinus congestion symptoms 2 weeks ago. Patient states that he does have a history of sinus infection and explains that his current symptoms are entirely consistent with same. Cough Associated symptoms include ear pain and sore throat. Review of Systems HENT: Positive for congestion, ear pain, sinus pressure, sinus pain and sore throat. Respiratory: Positive for cough. All other systems reviewed and are negative. Objective BP 148/75 Pulse 69 Temp 36.1 ?C (97 ?F) Resp 18 Wt 83.3 kg (183 lb 10.3 oz) SpO2 99% BMI 27.32 kg/m? Physical Exam Vitals and nursing note reviewed. Constitutional: Appearance: Normal appearance. He is normal weight. HENT: Head: Normocephalic and atraumatic. Right Ear: Tympanic membrane, ear canal and external ear normal. Left Ear: Tympanic membrane, ear canal and external ear normal. Nose: Congestion present. Mouth/Throat: Mouth: Mucous membranes are moist. Pharynx: Oropharynx is clear. Eyes: Extraocular Movements: Extraocular movements intact. Conjunctiva/sclera: Conjunctivae normal. Pupils: Pupils are equal, round, and reactive to light. Cardiovascular: Rate and Rhythm: Normal rate and regular rhythm. Pulses: Normal pulses. Heart sounds: Normal heart sounds. Pulmonary: Effort: Pulmonary effort is normal. Breath sounds: Normal breath sounds. Musculoskeletal: Cervical back: Normal range of motion and neck supple. Skin: General: Skin is warm and dry. Capillary Refill: Capillary refill takes less than 2 seconds. Neurological: General: No focal deficit present. Mental Status: He is alert and oriented to person, place, and time. Psychiatric: Mood and Affect: Mood normal. Behavior: Behavior normal. Thought Content: Thought content normal. Judgment: Judgment normal. Assessment and Plan Physical exam findings as noted above. Patient was provided with prescriptions for Augmentin 875-125 mg and Tessalon 100 mg and supportive care instructions were discussed. Patient verbalizes excellent understanding of same. CLINICAL IMPRESSION: Acute Sinusitis ASSESSMENT/PLAN: 1. Acute recurrent sinusitis, unspecified location - ICD9: 461.9, ICD10: J01.91 - AMOXICILLIN 875 MG-POTASSIUM CLAVULANATE 125 MG TABLET - BENZONATATE 100 MG CAPSULE [employer] Allergies As of Date: 12/12/2024 Noted Allergy Reaction BEE STING 09/29/2011 10 - Anaphylaxis AMITRIPTYLINE 12/30/2017 5 - Intolerance TRAMADOL 08/17/2018 11 - Vomiting Date Reviewed: 12/12/2024 Reviewed by: Yuko Corbin MA - Fully Assessed Reason for Visit: Cough [28] Cmt: ST, congestion x1 week Primary Visit Diagnosis:Acute recurrent sinusitis, unspecified location [J01.91] Order(s):amoxicillin- clavulanate potassium (AUGMENTIN) 875-125 mg per tabletTake 1 tablet by mouth two times a day for 10 days.Disp: 20 tabletRfl: 0 benzonatate (TESSALON PERLE) 100 mg capsuleTake 1 capsule by mouth three times a day as needed for cough for up to 7 days.Disp: 21 capsuleRfl: 0 Prescriptions as of 12/12/2024 - amoxicillin-clavulana te potassium (AUGMENTIN) 875-125 mg per tablet Take 1 tablet by mouth two times a day for 10 days. - benzonatate (TESSALON PERLE) 100 mg capsule Take 1 capsule by mouth three times a day as needed for cough for up to 7 days. - metFORMIN (GLUCOPHAGE) 1,000 mg tablet Take 1 tablet by mouth two times a day with meals. - traZODone (DESYREL) 50 mg tablet Take 1 tablet by mouth daily at bedtime. - baclofen 10 mg tablet Take 1 tablet by mouth three times a day as needed (muscle spasms). - blood sugar diagnostic (BLOOD GLUCOSE TEST) test strip Test blood sugar(s) 2 times daily. Dx: Other DM Code E11.22 Insulin: No - Lancets Test blood sugar(s) 2 times daily. Dx: Other DM Code E11.22 Insulin: No - semaglutide (OZEMPIC) 0.25 mg or 0.5 mg (2 mg/3 mL) pen Inject 0.25 mg subcutaneously one time a week. - ferrous sulfate (SLOW FE) 137 mg (45 mg iron) TbER Take 1 tablet by mouth every other day. - dicyclomine (BENTYL) 10 mg capsule Take 1 capsule by mouth before meals and at bedtime. PRN (more content not included)... Normal [facility] L3410.9998on 12-03-2024 [facility] Misc. COMMENT Normal . [facility] Comment on above: Order Comment: [id number] 9ELF SERUM RED RF Result Comment: Test Ordered: [id number] Enhanced Liver Fibrosis (ELF) ELF(TM) Score 9.31 Reference Range: <9.80 ELF(TM) Score Interpretation: Risk cut-offs to assess the likelihood of progression to cirrhosis and liver-related clinical events within 3.9 years following baseline ELF score (IQR: 14.0-22.4 months)*: Lower risk < 9.80 Mid risk 9.80 - 11.29 Higher risk >11.29 Note: The ELF(TM) Score is a unitless numerical value. *Greg SA, Scooby VW, George T, et al. Selonsertib for patients with bridging fibrosis or compensated cirrhosis due to MCKEON: Results from randomized phase III STELLAR trials. J Hepatol. 2020 Apr;73(1):26-39. Performed at: [address] [id number] Senior Manager Asset Protection: Josh Jolley MD, Phone: [phone] Performed at: [address] [id number] Senior Manager Asset Protection: Julio Cesar Cooper PhD, Phone: [phone] Performed By: #### L 3890.6300, L3100.0300, L3100.0460, L3410.9998, L100.0100, L500.4050, L3890.6100, L3890.6200 ####[facility] [address] [place], [place], [address] Hepatitis A AB, Totalon - HEPATITIS A,TOT Negative Normal Negative [facility] Comment on above: Result Comment: Comm ent: The HAV total antibody assay detects both IgG and IgM but does not differentiate between them. A negative result suggests susceptibility to infection. A positive result could be due to vaccination, previously resolved infection or active infection. Testing for HAV IgM should be performed if active HAV infection is suspected. [facility] offers profiles that will automatically reflex positive HAV total antibody results to IgM (e.g., panel #[id number] HAV Antibody w/ Rfx). Performed at: [address] [id number] Senior Manager Asset Protection: Julio Cesar Cooper PhD, Phone: [phone] Performed By: #### L 3890.6300, L3100.0300, L3100.0460, L3410.9998, L100.0100, L500.4050, L3890.6100, L3890.6200 ####[facility] [address] [place], [address] Hepatitis B Core Ab Totalon 11-30-2024 HEP B CORE,TOT Negative Normal Negative [facility] Comment on above: Performed By: #### L 3890.6300, L3100.0300, L3100.0460, L3410.9998, L100.0100, L500.4050, L3890.6100, L3890.6200 ####[facility] [address] [place], [address] CBC W/Diff, Automatedon 11-01 Absolute Lymph 1.44 X10 3/uL Normal 0.83-4.51 [facility] Comment on above: Performed By: #### P SSI #### [facility] [address] [place], [address] Absolute Neut 5.3 X10 3/uL Normal 2.0-7.7 [facility] Comment on above: Performed By: #### P SSI #### [facility] [address] [place], [address] Basophils/100 WBC (Bld) 0.9 % Normal 0-1 [facility] Comment on above: Performed By: #### P SSI #### [facility] [address] [place], [address] Eosinophils/100 WBC (Bld) 3.0 % Normal 0-5 [facility] Comment on above: Performed By: #### P SSI #### [facility] [address] [place], [address] Erythrocyte distribution width (RBC) [Ratio] 13.0 % Normal 11.6-14.6 [facility] Comment on above: Performed By: #### P SSI #### [facility] [address] [place], [address] Hematocrit (Bld) [Volume fraction] 37.6 % Low 40-54 [facility] Comment on above: Performed By: #### P SSI #### [facility] [address] [place], [address] Hemoglobin (Bld) [Mass/Vol] 12.5 g/dL Low 13.0-16.5 [facility] Comment on above: Performed By: #### P SSI #### [facility] [address] [place], [address] IG% 0.400 Normal 0.0-0.9 [facility] Comment on above: Result Comment: IG% - Immature Granulocytes (promyelocytes, myelocytes and metamyelocytes) > 1% indicates that a LEFT SHIFT is Present. Performed By: #### P SSI #### [facility] [address] [place], [address] Lymphocytes/100 WBC (Bld) 18.9 % Low 19-41 [facility] Comment on above: Performed By: #### P SSI #### [facility] [address] [place], [address] MCH (RBC) [Entitic mass] 28.7 pg Normal 27.0-32.0 [facility] Comment on above: Performed By: #### P SSI #### [facility] [address] [place], [address] MCHC (RBC) [Mass/Vol] 33.2 g/dL Normal 32-36 [facility] Comment on above: Performed By: #### P SSI #### [facility] [address] [place], [address] MCV (RBC) [Entitic vol] 86.4 fL Normal 80-94 [facility] Comment on above: Performed By: #### P SSI #### [facility] [address] [place], [address] Monocytes/100 WBC (Bld) 8.0 % Normal 0-10 [facility] Comment on above: Performed By: #### P SSI #### [facility] [address] [place], [address] Neutrophils/100 WBC (Bld) 68.8 % Normal 47-70 [facility] Comment on above: Performed By: #### P SSI #### [facility] [address] [place], [address] Nucleated RBC (Bld) [#/Vol] 0 10*3/uL Normal 0-5 [facility] Comment on above: Performed By: #### P SSI #### [facility] [address] [place], [address] Platelet mean volume (Bld) [Entitic vol] 9.9 fL Normal 6.2-12.0 [facility] Comment on above: Performed By: #### P SSI #### [facility] [address] [place], [address] Platelets (Bld) [#/Vol] 290 10*3/uL Normal 150-450 [facility] Comment on above: Performed By: #### P SSI #### [facility] [address] [place], [address] RBC (Bld) [#/Vol] 4.35 10*6/uL Low 4.6-6.2 [facility] Comment on above: Performed By: #### P SSI #### [facility] [address] [place], [address] RDW SD 40.9 fl Normal 35.1-43.9 [facility] Comment on above: Performed By: #### P SSI #### [facility] [address] [place], [address] WBC (Bld) [#/Vol] 7.6 10*3/uL Normal 4.4-11.0 [facility] Comment on above: Performed By: #### P SSI #### [facility] [address] [place], [address] Comprehensive Metabolic Prof ilon 11-28-2024 Albumin [Mass/Vol] 3.9 g/dL Normal 3.2-5.0 [facility] Comment on above: Performed By: #### P SSI #### [facility] [address] [place], [address] Albumin/Globulin [Mass ratio] 1.3 {ratio} Normal 0.9-2.4 [facility] Comment on above: Performed By: #### P SSI #### [facility] [address] [place], [address] ALK P 57 U/L Normal 45-117 [facility] Comment on above: Performed By: #### P SSI #### [facility] [address] [place], [address] ALT [Catalytic activity/Vol] 25 U/L Normal 16-61 [facility] Comment on above: Performed By: #### P SSI #### [facility] [address] [place], [address] AST [Catalytic activity/Vol] 15 U/L Normal 15-37 [facility] Comment on above: Performed By: #### P SSI #### [facility] [address] [place], [address] Bilirubin [Mass/Vol] 0.30 mg/dL Normal 0.20-1.00 [facility] Comment on above: Result Comment: For patients on eltrombopag therapy, use of Dimension [place] TBIL is not recommended. Performed By: #### P SSI #### [facility] [address] [place], [address] BUN/CRE 10.9 RATIO Normal 10-20 [facility] Comment on above: Performed By: #### P SSI #### [facility] [address] [place], [address] CA,Total 8.9 mg/dL Normal 8.5-10.1 [facility] Comment on above: Performed By: #### P SSI #### [facility] [address] [place], [address] Chloride [Moles/Vol] 106 mmol/L Normal 98-107 [facility] Comment on above: Performed By: #### P SSI #### [facility] [address] [place], [address] CO2 [Moles/Vol] 25.0 mmol/L Normal 21.0-32.0 [facility] Comment on above: Performed By: #### P SSI #### [facility] [address] [place], [address] Creatinine [Mass/Vol] 1.56 mg/dL High 0.70-1.30 [facility] Comment on above: Result Comment: The validity of the calculated GFR GFRAA in patients over 70 years has not been determined. Clinical correlation is essential. Performed By: #### P SSI #### [facility] [address] [place], [address] EST GFR - AA 57 mL/min Low >60 [facility] Comment on above: Result Comment: Afri can [place] GFR Calc Performed By: #### P SSI #### [facility] [address] [place], [address] GAP 7 Normal 5-15 [facility] Comment on above: Performed By: #### P SSI #### [facility] [address] [place], [address] GFR/1.73 sq M.predicted among non-blacks MDRD (S/P/Bld) [Vol rate/Area] 47 mL/min/{1.73_m2} Low >60 [facility] Comment on above: Result Comment: Non- GFR Calc Performed By: #### P SSI #### [facility] [address] [place], [address] Globulin (S) [Mass/Vol] 3.1 g/dL Normal 2.2-4.2 [facility] Comment on above: Performed By: #### P SSI #### [facility] [address] [place], [address] Glucose [Mass/Vol] 101 mg/dL Normal 74-106 [facility] Comment on above: Result Comment: Fast ing Glucose result from 100 to 125 mg/dL suggests IMPAIRED HOMEOSTASIS per A.D.A. criteria. Performed By: #### P SSI #### [facility] [address] [place], [address] Potassium [Moles/Vol] 4.2 mmol/L Normal 3.5-5.1 [facility] Comment on above: Performed By: #### P SSI #### [facility] [address] [place], [address] Sodium [Moles/Vol] 137 mmol/L Normal 136-145 [facility] Comment on above: Performed By: #### P SSI #### [facility] [address] [place], [address] T PROT 7.0 g/dL Normal 6.4-8.2 [facility] Comment on above: Performed By: #### P SSI #### [facility] [address] [place], [address] Urea nitrogen [Mass/Vol] 17 mg/dL Normal 7-18 [facility] Comment on above: Performed By: #### P SSI #### [facility] [address] [place], [address] Hepatitis B Surface Antibody on 11-28-2024 HEP B Surf Ab Reactive Normal [facility] Comment on above: Order Comment: Reaso n for Exam: MASLD Result Comment: Non Reactive: Inconsistent with immunity less than <10 mIU/mL Reactive: Consistent with immunity greater than or equal to 10 mIU/mL Performed By: #### P SSI #### [facility] [address] [place], [place], [address] Hepatitis B Surface Antigeno n 11-28-2024 HEP B Surf Ag Non-Reactive Normal Nonreactive [facility] Comment on above: Order Comment: Reaso n for Exam: MASLD Performed By: #### P SSI #### [facility] [address] [place], [address] Hepatitis C Antibodyon 11-28 Hepatitis C AB Non-Reactive Normal Nonreactive [facility] Comment on above: Order Comment: Reaso n for Exam: MASLD Result Comment: Non Reactive: < 0.8 Equivocal: >/= 0.8 to < 1.0 Reactive: >/= 1.0 The CDC requires that a reactive/equivocal HCV antibody result be sent out for confirmation. HCV Quant by PCR testing. Performed By: #### L 3890.6300, L3100.0300, L3100.0460, L3410.9998, L100.0100, L500.4050, L3890.6100, L3890.6200 ####[facility] [address] [place], [place], [address] Gastroenterology Visit Repor ton 11-27-2024 Gastroenterology Visit Report [facility] [address] [place] [address] OFFICE VISIT Date of Service: 11/27/24 MR#: [id number] Acct: [id number] Name: DAR ROSE Rep #: [id number] : 1955 Provider: AKOSUA medina Age/Sex: 69/M [place] [facility] Status: Signed Intake Vital Signs 06/20/23 11:41 11/20/24 12:55 11/27/24 08:38 Height 5 ft 10.08 in 5 ft 10 in 5 ft 10 in Weight: 187 lb 4 oz BMI 26.9 BP 154/81 H Respiration 18 Pulse 64 Pulse Oximetry (%) 98 Oxygen Delivery Method room air Intake Visit Reasons: 3 M FU Chief Complaint: RUQ pain [place] Required: No Accompanied by: Is patient in pain?: No Allergies tramadol Allergy (Mild, Verified 11/27/24 08:39) rash amitriptyline Allergy (Verified 11/27/24 08:39) Hives bee venom protein (honey bee) Allergy (Verified 11/27/24 08:39) Anaphylaxis Medications ???Medication ???Instructions ???Recorded ???Confirmed ???Type metformin 1,000 mg tablet 1,000 mg PO BIDCM 10/21/21 11/27/24 History epinephrine 0.3 mg/0.3 mL 0.3 ml subcut ONCE PRN anaphylaxis 10/20/22 11/27/24 History injection, auto-injector fluticasone propionate 50 2 spray intranasal DAILY PRN nasal 10/20/22 11/27/24 History mcg/actuation nasal congestion spray,suspension amlodipine 10 mg tablet 10 mg PO DAILY #90 tabs 09/06/24 11/27/24 Rx carvedilol 25 mg tablet 25 mg PO BID #180 tabs 09/06/24 11/27/24 Rx losartan 100 mg tablet 100 mg PO DAILY #90 tabs 09/06/24 11/27/24 Rx atorvastatin 10 mg tablet (Lipitor) 10 mg PO QHS 09/24/24 11/27/24 History baclofen 10 mg tablet 10 mg PO QHS PRN pain 09/24/24 11/27/24 History esomeprazole magnesium 40 mg 40 mg PO DAILY #90 caps 09/24/24 11/27/24 Rx capsule,delayed release trazodone 100 mg tablet 50 mg PO QHS 09/24/24 11/27/24 History dicyclomine 10 mg capsule 10 mg PO QHS 11/15/24 11/27/24 History semaglutide 0.25 mg or 0.5 mg (2 0.5 mg subcut TU 11/15/24 11/27/24 History mg/3 mL) subcutaneous pen injector (Ozempic) Have you fallen in the past year?: No Nurse's Note: Just has episodes of gas and occasional bloating. Here for results and plan going forward. [facility] Medical History Wears glasses Cardiology follow-up encounter Anxiety COVID-19 virus detected (07/06/21) Dyslipidemia Paroxysmal supraventricular tachycardia Type 2 diabetes mellitus Essential hypertension Superficial spreading malignant melanoma of skin Depression BPH (benign prostatic hyperplasia) Back problem GERD (gastroesophageal reflux disease) Surgical History History of radiofrequency ablation procedure for cardiac arrhythmia (2013) History of colonoscopy History of prostatectomy History of tonsillectomy History of repair of left rotator cuff Family History Mother Cancer lung Father Alzheimer disease Son Ulcerative colitis Social History Smoking Status: Former smoker how long ago did patient quit smokin years ago alcohol intake: current alcohol intake frequency: holidays/special occasions only substance use type: does not use caffeine: Yes Type: coffee HPI HPI Chief Complaint: RUQ pain Details: DAR ROSE, is a 69 M who presents to the office today for - patient seen in office today with EGD 11/20/2024 - 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 Biopsied. 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 - No gross lesions in the duodenal bulb. 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 HAV Total Ab: HBVsAg: HBVsAb: HBV Core Ab Total: HCV Ab: ELF: CBC: CMP: - Metamucil has loosened stools - he is having a BM daily - normal formed without Metamucil - Right sided abdominal discomfort has improved - believes this is secondary to dietary modifications - reports he is now on Ozempic and no longer has any cravings for sweets - he has reduced his carbohydrate intake - he is also limiting fried foods - he is eating - denies any alcohol consumption - maybe 1 beer a year - he is a non-smoker - DM II ROS Const Constitutional: Positive for weight change; No fatigue or fever(s) ENT ENT: No difficulty swallowing Gastro GI: Positive for bloating, constipation and heartburn; No abdominal pain, belching, change in bowel habits, change in stool character, coffee ground emesis, cramping, diarrhea, difficulty swallowing, feeling full early, excessive flatus, incontinent of stools, V (more content not included)... Normal [facility] 11[facility]21-20[facility] MILTONDAR Mode ([id number]) 1955 M Date Time Provider Department 11/21/24 CRUZ PRADO During your visit today, we recorded the following information about you: Cruz Prado MD 11/21/2024 7:21 PM Signed Let patient know his A1c is very good at 5.7% Izabela Skelton RN 11/22/2024 8:41 AM Signed Pt called and is notified of providers results. Pt voices understanding. Izabela Skelton RN Allergies As of Date: 11/21/2024 Noted Allergy Reaction BEE STING 09/29/2011 10 - Anaphylaxis AMITRIPTYLINE 12/30/2017 5 - Intolerance Comments: Did not tolerate. TRAMADOL 08/17/2018 11 - Vomiting Date Reviewed: 07/12/2024 Reviewed by: Raul Domingo LPN - Fully Assessed Reason for Visit: Results [95] Prescriptions as of 11/22/2024 - metFORMIN (GLUCOPHAGE) 1,000 mg tablet Take 1 tablet by mouth two times a day with meals. - traZODone (DESYREL) 50 mg tablet Take 1 tablet by mouth daily at bedtime. - baclofen 10 mg tablet Take 1 tablet by mouth three times a day as needed (muscle spasms). - blood sugar diagnostic (BLOOD GLUCOSE TEST) test strip Test blood sugar(s) 2 times daily. Dx: Other DM Code E11.22 Insulin: No - Lancets Test blood sugar(s) 2 times daily. Dx: Other DM Code E11.22 Insulin: No - semaglutide (OZEMPIC) 0.25 mg or 0.5 mg (2 mg/3 mL) pen Inject 0.25 mg subcutaneously one time a week. - ferrous sulfate (SLOW FE) 137 mg (45 mg iron) TbER Take 1 tablet by mouth every other day. - dicyclomine (BENTYL) 10 mg capsule Take 1 capsule by mouth before meals and at bedtime. PRN - EPINEPHrine (AUVI-Q) 0.3 mg/0.3 mL auto-injector Inject 0.3 mL intramuscularly as needed. - fluticasone (FLONASE) 50 mcg/actuation nasal spray Use 2 Sprays in each nostril once daily. Rinse mouth after use. - esomeprazole (NEXIUM) 40 mg capsule Take 1 capsule by mouth once daily. - atorvastatin (LIPITOR) 10 mg tablet Take 1 tablet by mouth daily at bedtime. For cholesterol. - docusate sodium (COLACE) 100 mg capsule Take 1 capsule by mouth two times a day as needed for constipation. - ondansetron orally disintegrating (ZOFRAN ODT) 4 mg disintegrating tablet Take 1 tablet by mouth every 6 hours as needed for nausea/vomiting. - losartan (COZAAR) 100 mg tablet Take 1 tablet by mouth once daily. - carvedilol (COREG) 25 mg tablet Take 1 tablet by mouth twice daily. Per CardioDr. Schneider - amLODIPine (NORVASC) 10 mg tablet Take 1 tablet by mouth once daily. Per CardioDr. Schneider Meds Comments as of 09/09/2017: Patient states that he is on a new medication and unsure of the name at this time. Problem List As Of Date 11/21/2024 Noted Resolved Essential hypertension, benign [I10] 06/06/2006 Health maintenance examination [Z00.00] 09/29/2011 02/15/2013 Anxiety [F41.9] 11/16/2012 Herniated lumbar intervertebral disc [M51.26] Mixed hyperlipidemia [E78.2] 03/20/2013 Nuclear sclerotic cataract of both eyes [H25.13]05/30/2015 Other chronic allergic conjunctivitis [H10.45] 05/30/2015 08/17/2018 Degenerative retinal drusen of both eyes [H35.3*05/30/2015 Vitreous syneresis of both eyes [H43.393] 05/30/2015 Posterior vitreous detachment of left eye [H43.*08/31/2016 Senile nuclear sclerosis [H25.10] 05/17/2017 Posterior vitreous detachment of right eye [H43*09/09/2017 Type 2 diabetes mellitus with retinopathy, with*09/09/2017 Senile nuclear sclerosis, bilateral [H25.13] 09/09/2017 Peripheral retinal degeneration, paving stone, *09/09/2017 Matthew's esophagus [K22.70] 04/01/2016 08/28/2018 Leg cramps [R25.2] 01/30/2018 Uncontrolled type 2 diabetes mellitus with stag*01/30/2018 02/24/2019 Decreased libido [R68.82] 01/30/2018 Dupuytren contracture [M72.0] 08/25/2017 08/17/2018 Trigger middle finger of right hand [M65.331] 08/25/2017 08/17/2018 Trigger ring finger of left hand [M65.342] 08/25/2017 08/17/2018 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 [K22.70] 07/06/2018 Hematuria [R31.9] 12/15/2018 12/16/2018 Controlled type 2 diabetes mellitus with stage *02/24/2019 Lumbar radiculopathy [M54.16] 02/24/2019 Chronic insomnia [F51.04] 02/24/2019 Malignant melanoma of torso excluding breast (H*02/11/2020 Low testosterone in male [R79.89] 06/21/2020 Iron deficiency anemia [D50.9] 06/21/2020 History of depression [Z86.59] Ex-smoker [Z87.891] 05/20/2021 Gastroesophageal reflux disease with esophagiti*05/20/2021 ED (erectile dysfunction) [N52.9] 05/20/2021 SVT (supraventricular tachycardia) (HCC) [I47.1*05/20/2021 AK (actinic keratosis) [L57.0] 05/20/2021 Irritable bowel syndrome with both constipation*07/31/20 RUQ abdominal pain [R10.11] 07/31/2021 History of COVID-19 [Z86.16] 08/03/2021 Renal cyst, right [N28.1] 08/10/2021 Liver cyst [K76.89] 08/10/2021 Diabetic eye exam (HCC) [Z01.00, E11.9] 03/18/2022 Retinopathy [H35.00] 03/19/2022 Medication management [Z (more content not included)... Normal [facility] HbA1c (Bld)on 11-21-2024 Average glucose Estimated from glycated hemoglobin (Bld) [Mass/Vol] 117 mg/dL Normal [facility] Comment on above: Order Comment: Speci men Type: BLOOD SPECIMENOrdering Facility: [facility] Address: [address] [place] [address] Result Comment: eAG: (Estimated average glucose) is a calculated value from HgbA1c and is client care representative of the average blood glucose level in the last 2-3 month period. Performed By: #### 5 5454-3 ####[facility] [id number] [place] [address] [place] HbA1c (Bld) [Mass fraction] 5.7 % High 4.3-5.6 [facility] Comment on above: Order Comment: Morena edwards Type: BLOOD SPECIMENOrdering Facility: [facility] Address: [address] [place] [address] Result Comment: [place] Diabetes Association guidelines indicate that patients with HgbA1c in the range 5.7-6.4% are at increased risk for development of diabetes, and intervention by lifestyle modification may be beneficial. HgbA1c greater or equal to 6.5% is considered diagnostic of diabetes. Performed By: #### 5 5454-3 ####[facility] [id number] [place] [address] [place] Bedside Glucoseon 11-20-2024 FINGERSTICK GLU 105 mg/dL Normal 74-106 [facility] Comment on above: Result Comment: OMID KATE OF PATIENT CARE PER NURSING PROTOCOL Performed By: #### L 501.080 #### [facility] [address] [place], [address] EGD Reporton 11-20-2024 EGD Report [facility] Medical Records Department [address] [place] [address] EGD Report MR#: [id number] Acct: [id number] Name: DAR ROSE Rep #: [id number] : 1955 69 From: Dany Abdi DO PCP: Dr. Cruz Prado MD Status:[facility] Patient Name: Dar Rose Procedure Date: 11/20/2024 1:35 PM Date of : 1955 Age: 69 Procedure: Upper GI endoscopy Indications: Epigastric abdominal pain, Follow-up of Matthew's esophagus Providers: Dany Abdi DO Referring MD: Cruz Prado MD Medicines: Monitored Anesthesia Care Patient Profile: This is a 69 year old male. Refer to note in patient chart for documentation of history and physical. Patient has symptoms of chronic abdominal distention, chronic epigastric abdominal pain, chronic dyspepsia and chronic nausea. Complications: No immediate complications. Procedure: Pre-Anesthesia Assessment: - Prior to the procedure, a History and Physical was performed, and patient medications and allergies were reviewed. The patient is competent. The risks and benefits of the procedure and the sedation options and risks were discussed with the patient. All questions were answered and informed consent was obtained. Patient identification and proposed procedure were verified by the physician in the pre-procedure area. Mental Status Examination: alert and oriented. Airway Examination: normal oropharyngeal airway and neck mobility. Respiratory Examination: clear to auscultation. CV Examination: normal. Prophylactic Antibiotics: The patient does not require prophylactic antibiotics. Prior Anticoagulants: The patient has taken no anticoagulant or antiplatelet agents except for NSAID medication. ASA Grade Assessment: II - A patient with mild systemic disease. After reviewing the risks and benefits, the patient was deemed in satisfactory condition to undergo the procedure. The anesthesia plan was to use monitored anesthesia care (MAC). Immediately prior to administration of medications, the patient was re-assessed for adequacy to receive sedatives. The heart rate, respiratory rate, oxygen saturations, blood pressure, adequacy of pulmonary ventilation, and response to care were monitored throughout the procedure. The physical status of the patient was re-assessed after the procedure. After obtaining informed consent, the endoscope was passed under direct vision. Throughout the procedure, the patient's blood pressure, pulse, and oxygen saturations were monitored continuously. The Endoscope was introduced through the mouth, and advanced to the second part of duodenum. The upper GI endoscopy was accomplished without difficulty. The patient tolerated the procedure well. Scope In: 1:51:29 PM Scope Out: 1:55:22 PM Total Procedure Duration Time 0 hours 3 minutes 53 seconds Findings: There were esophageal mucosal changes secondary to established short-segment Matthew's disease present in the lower third of the esophagus. The maximum longitudinal extent of these mucosal changes was 2 cm in length. Mucosa was biopsied with a cold forceps for histology in a targeted manner at intervals of 1 cm in the lower third of the esophagus. One specimen bottle was sent to pathology. Verification of patient identification for the specimen was done. Estimated blood loss was minimal. A large, submucosal, non-circumferential mass with no bleeding and no stigmata of recent bleeding was found at the incisura. No gross lesions were noted in the duodenal bulb. Impression: - 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 Biopsied. 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 - No gross lesions in the duodenal bulb. Recommendation: - Discharge patient to home. - Resume previous diet. - Continue present medications. - Await pathology results. - Endoscopic ultrasound with possible fine-needle aspiration Procedure Code(s): --- Professional --- 04690, Esophagogastroduodeno scopy, flexible, transoral; with biopsy, single or multiple CPT copyright 2021 [employer]. All rights reserved. The codes documented in this report are preliminary and upon supervisor functional testing review may be revised to meet current compliance requirements. Dany Abdi DO 11/20/2024 2:03:34 PM This report has been signed electronically. Number of Addenda: 0 Note Initiated On: 11/20/2024 1:35 PM 11/20/24 140 Date Dany Davila Signature: Date (if indicated) CC: Dr. Cruz Prado MD; Dany Abdi DO Date Dictated: 11/20/24 1335 Date Transcribed: Kitchen Aide: BENJA Signed [facility] MR/POSTOP.ANE 11-20-2024 MR/POSTOP.[facility] Medical Records Department [address] [place] [address] Anesthesia Postop Eval I 11/20/241405 MR#: [id number] Acct: [id number] Name: DAR ROSE Rep #: [id number] : 1955 69 From: Payton José PCP: Dr. Cruz Prado MD Status:REG SD Y Race: C Location: [place] [address] Anesthesia: Postop Eval I Current Vital Signs Temperature: 98 F Pulse Rate: 74 Blood Pressure: 101/67 Respiratory Rate: 16 Pulse Ox: 96 Oxygen Delivery Method: Room Air Assessment Airway patent: Yes Spontaneous unlabored respirations: Yes Mental status: Awake and Calm nausea: No Vomiting: No Anesthesia Complication: No Fluid Hydration Crystalloid volume administer (ml): 30 Total IV fluid infused: 30 Progress Note Anesthesia document: Postop Eval 1 completed: Yes 11/20/241406 Date Payton Chapman Signature: Date CC: Signed [facility] MR/KUOLTRWI2da 11-20-2024 MR/POSTOPAN2 [facility] Medical Records Department [address] [place] [address] Anesthesia Postop Eval II 11/20/241941 MR#: [id number] Acct: [id number] Name: DAR ROSE Rep #: [id number] : 1955 69 From: Addison Ellis MD PCP: Dr. Cruz Prado MD Status:[facility] Y Race: C Location: EN Anesthesia Postop Eval I Sum Postop Eval Completion status Anesthesia document: Postop Eval 1 completed: Yes Anesthesia Postop Eval I Summary Anesthesia Postop Eval I Summary: Anesthesia Postop Eval I: Assessment Summary Airway patent Yes 11/20/24 14:07 [email or web address] Spontaneous unlabored Yes 11/20/24 14:07 [email or web address] respirations Mental status Awake,Calm 11/20/24 14:07 [email or web address] nausea No 11/20/24 14:07 [email or web address] Vomiting No 11/20/24 14:07 [email or web address] Anesthesia Postop Eval I: Fluid Summary Crystalloid volume administer 30 11/20/24 14:07 [email or web address] (ml) Colloids volume administered ( ml) Blood Product volume administered (ml) Total IV fluid infused 30 11/20/24 14:07 [email or web address] Anesthesia Postop Eval I: Summary Notes Anesthesia Complication No 11/20/24 14:07 [email or web address] Anesthesia Complication Comment: Post-operative progress note Anesthesia: Postop Eval II Evaluation Mental status: Awake and Calm Pain Level: 0 nausea: No Vomiting: No Complications Anesthesia Complication: No 11/20/241941 Date Addison Ellis MD Cosigner Signature: Date CC: Signed [facility] Special Stain Group Ion 11-01 Special Stain Group I --- -------- Patient Age/Sex Location Account Attending Physician -------- DAR ROSE 69/M EN [id number] Dany Abdi DO -------- Specimen: [id number] Received: 11/20/24 Status: JOHANA Dahl Num: [id number] Spec Type: EGD BIOPSY Subm Dr: Dany Abdi DO HEADER OPERATION: EGD with biopsy PRE-OP DIAGNOSIS: Right upper quadrant pain, liver cyst, steatosis of liver, altered bowel habits, GERD, Matthew's esophagus TISSUE SUBMITTED: Distal esophagus biopsy -------- MICROSCOPIC DIAGNOSIS Distal esophagus, biopsy: Fragments of gastroesophageal mucosa with chronic inflammation. Intestinal metaplasia (goblet cell metaplasia) not identified. See comment. SJ.mr 11/22/2024 COMMENT Alcian blue/PAS stain with matched control is used in the evaluation of the specimen. MICROSCOPIC DESCRIPTION Slides are reviewed. GROSS DESCRIPTION Received in fixative is one container labeled with the patient's name and designated Distal esophagus biopsy. The specimen consists of multiple irregular fragments of light castillo soft tissue that in aggregate measure 1.2 x 0.3 x 0.2 cm. The specimen is totally submitted in one cassette. BW.mr 11/21/2024 TC:3 [facility]:[id number] -------- Patient Age/Sex Location Account Attending Physician -------- DAR ROSE 69/M EN [id number] Dany Abdi DO -------- Signed (signature on file) Dr. David Ruiz MD 11/22/24 1155 -------- [facility] Comment on above: Performed By: #### P SSI #### [facility] [address] [place], [address] MR/PAT.ANEon 11-15-2024 MR/PAT.ANE [facility] Medical Records Department [address] [place] [address] PAT - Anesthesia 11/15/24 1151 MR#: [id number] Acct: [id number] Name: DAR ROSE Rep #: [id number] : 1955 69 From: Tony Lilly MD PCP: Dr. Cruz Prado MD Status:PRE SD Y Race: C Location: EN Pre-Assessment Diagnosis/Proposed Procedure Planned Operative Procedure(s): EGD Anesthesia History Anesthesia History - cleat feeder: Anesthesia History - cleat feeder Hx Hospitalization No 11/15/24 10:33 Any Problems With Anesthesia No 11/15/24 10:33 Cholinesterase deficiency No 11/15/24 10:33 You/Your Family Experience No 11/15/24 10:33 fever (hyperthermia) with Relationship Recent Exposure to Contagious Disease Does patient have nerve No 11/15/24 10:33 stimulator Patient instructed to have device shut off --Does patient have Pacemaker or ICD? When Was Last Pacemaker Check QUESTION #4 FULL TEXT: You/Your Family Experience fever (hyperthermia) with Anesthesia Last Oral Intake Last Oral intake: Last Oral Intake NPO since Meds taken in AM with sips of water? Meds patient instructed to take am of surgery PONV PONV - cleat feeder: PONV - cleat feeder Female No 11/15/24 10:33 HX of Motion Sickness No 11/15/24 10:33 HX of N/V After Surgery No 11/15/24 10:33 Non-Smoker Yes 11/15/24 10:33 Duration of Surgery greater No 11/15/24 10:33 than 60 minutes Number of Risk Factors 1 11/15/24 10:33 PONV Score Low Risk 11/15/24 10:33 Height Weight Height Weight: Anesthesia: Height Weight Height 5 ft 10.08 in 06/20/23 11:41 Respiratory Assessment Respiratory Assessment - cleat feeder: Respiratory Tract Infection Hx - cleat feeder Hx Respiratory Tract Infection No 11/15/24 10:33 STOP Sleep Apnea STOP Sleep Apnea - cleat feeder: STOP Sleep Apnea - cleat feeder Hx Hypertension Yes: CONTROLLED WITH MEDS 11/15/24 10:33 Hx Sleep Apnea No 11/15/24 10:33 CPAP BIPAP Do you snore loudly (louder Yes 11/15/24 10:33 than talking or can be heard Do you often feel tired/ No 11/15/24 10:33 fatigued/ sleepy during daytime? Has anyone observed you stop No 11/15/24 10:33 breathing during sleep? STOP Results Positive 11/15/24 10:33 QUESTION #5 FULL TEXT : Do you snore loudly (louder than talking or can be heard through closed doors)? 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 Specify any problems Hx of Preganancy in last 3 N/A 11/15/24 10:33 Months Nurse Filling Out Transfusion [email or web address] 11/15/24 10:33 Questions: Date: 11/15/24 11/15/24 10:33 Time: 10:36 11/15/24 10:33 Patient unable to answer at this time (ie. confused, unrespo /Reproductio n History /Reproductiv e History - cleat feeder: /Reproductiv e Hx- cleat feeder Hx Now Gestational Age (in weeks): EDC: Hx Hx Para Hx Section SAB [facility] Medical History (Updated 11/15/24 @ 10:40 by Jun Newman) Wears glasses Cardiology follow-up encounter Anxiety COVID-19 virus detected (07/06/21) Dyslipidemia Paroxysmal supraventricular tachycardia Type 2 diabetes mellitus Essential hypertension Superficial spreading malignant melanoma of skin Depression BPH (benign prostatic hyperplasia) Back problem GERD (gastroesophageal reflux disease) Home Medications ???Medication ???Instructions ???Recorded ???Last Taken ???Type metformin 1,000 mg tablet 1,000 mg PO BIDCM 10/21/21 Unknown History epinephrine 0.3 mg/0.3 mL 0.3 ml subcut ONCE PRN anaphylaxis 10/20/22 Unknown History injection, auto-injector fluticasone propionate 50 2 spray intranasal DAILY PRN nasal 10/20/22 Unknown History mcg/actuation nasal congestion spray,suspension amlodipine 10 mg tablet 10 mg PO DAILY #90 tabs 09/06/24 Unknown Rx carvedilol 25 mg tablet 25 mg PO BID #180 tabs 09/06/24 (more content not included)... [facility] MRI Abd WITH and W/O Contras ton 11-13-2024 MRI Abd WITH and W/O Contrast [facility] Imaging Services [address] [place] [id number] MRI Abd WITH and W/O Contrast MR#: [id number] Acct: [id number] Name: DAR ROSE Rep #: [id number] : 1955 M 69 From: Reuben brewster MD PCP: Dr. Cruz Prado MD Status: REG CLI Study: MRI Abd WITH and W/O Contrast Date of Exam: Exam# [id number] Ordering Dr: Irma Brown [employer]ER[employer]OOF BOLTER- C [id number] MRI Abdomen w/ and w/out contrast 11/13/2024 3:39 PM COMPARISON: 10/15/2024 CLINICAL HISTORY: significantly larger liver cyst -- Attn LIVER, COMPARE TO ULTRASOUNDS TECHNIQUE: Multiplanar T1 and T2 weighted, diffusion and dynamic post-gadolinium images were obtained through the abdomen before and after administration of 17 cc of IV Clariscan.. FINDINGS: Liver: Multiple simple cysts throughout the liver, largest measuring 2.3 cm. Slightly nodular liver contour. Gallbladder: Unremarkable Pancreas: Unremarkable Spleen: Unremarkable Adrenal Glands: Unremarkable Kidneys: Multiple simple cysts throughout both kidneys, largest measuring 11.8 x 10.6 x 11 cm in the right upper renal pole. No evidence of signal dropout on T1 opposed phase images compared to T1 in phase images. No evidence of signal drop on fat saturation sequence. No significant enhancement. GI Tract: 2.8 x 2.9 x 2.8 cm round T1 and 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 No evidence of signal dropout on T1 opposed phase images compared to T1 in phase images. No evidence of signal drop on fat saturation sequence. It demonstrates heterogeneous gradual enhancement. Lymphadenopathy: Absent Ascites: Absent Bones: No suspicious lesions MRI/MRI Abd WITH and W/O Contrast IMPRESSION: 3 cm round enhancing intraluminal mass in the antrum of the stomach is concerning for malignancy. Recommend endoscopy. Simple nonenhancing 12 cm cyst in the right upper renal pole. Multiple nonenhancing simple cysts throughout the liver, largest measuring 2.3 cm. Slightly nodular liver contour could represent early cirrhosis. Electronically Signed: Reuben Lopez MD at 8:11 EST , CC: AKOSUA Brown; Dr. Cruz Prado MD Kitchen Aide: Signed [facility] 11-07-2024 [facility] Telephone (FAMPWS) DAR ROSE ([id number]) 1955 M Date Time Provider Department 11/07/24 CRUZ PRADO During your visit today, we recorded the following information about you: Mary Beltran, RN 11/07/2024 1:32 PM Signed [facility] reports the fax sent to them this morning needs resent, only received 2 pages out of 19, and the 2 they have are blurred and difficult to read. Re-faxed recent ov notes, demographics, consult order, lab results to [facility]- attn: Dr. Mireles, to fax # [phone] Allergies As of Date: 11/07/2024 Noted Allergy Reaction BEE STING 09/29/2011 10 - Anaphylaxis AMITRIPTYLINE 12/30/2017 5 - Intolerance Comments: Did not tolerate. TRAMADOL 08/17/2018 11 - Vomiting Date Reviewed: 07/12/2024 Reviewed by: Raul Domingo LPN - Fully Assessed Reason for Visit: Faxed to [facility] [Other] Prescriptions as of 11/07/2024 - metFORMIN (GLUCOPHAGE) 1,000 mg tablet Take 1 tablet by mouth two times a day with meals. - traZODone (DESYREL) 50 mg tablet Take 1 tablet by mouth daily at bedtime. - baclofen 10 mg tablet Take 1 tablet by mouth three times a day as needed (muscle spasms). - blood sugar diagnostic (BLOOD GLUCOSE TEST) test strip Test blood sugar(s) 2 times daily. Dx: Other DM Code E11.22 Insulin: No - Lancets Test blood sugar(s) 2 times daily. Dx: Other DM Code E11.22 Insulin: No - semaglutide (OZEMPIC) 0.25 mg or 0.5 mg (2 mg/3 mL) pen Inject 0.25 mg subcutaneously one time a week. - ferrous sulfate (SLOW FE) 137 mg (45 mg iron) TbER Take 1 tablet by mouth every other day. - dicyclomine (BENTYL) 10 mg capsule Take 1 capsule by mouth before meals and at bedtime. PRN - EPINEPHrine (AUVI-Q) 0.3 mg/0.3 mL auto-injector Inject 0.3 mL intramuscularly as needed. - fluticasone (FLONASE) 50 mcg/actuation nasal spray Use 2 Sprays in each nostril once daily. Rinse mouth after use. - esomeprazole (NEXIUM) 40 mg capsule Take 1 capsule by mouth once daily. - atorvastatin (LIPITOR) 10 mg tablet Take 1 tablet by mouth daily at bedtime. For cholesterol. - docusate sodium (COLACE) 100 mg capsule Take 1 capsule by mouth two times a day as needed for constipation. - ondansetron orally disintegrating (ZOFRAN ODT) 4 mg disintegrating tablet Take 1 tablet by mouth every 6 hours as needed for nausea/vomiting. - losartan (COZAAR) 100 mg tablet Take 1 tablet by mouth once daily. - carvedilol (COREG) 25 mg tablet Take 1 tablet by mouth twice daily. Per Cardio, Dr. Schneider - amLODIPine (NORVASC) 10 mg tablet Take 1 tablet by mouth once daily. Per Cardio, Dr. Schneider Meds Comments as of 09/09/2017: Patient states that he is on a new medication and unsure of the name at this time. Problem List As Of Date 11/07/2024 Noted Resolved Essential hypertension, benign [I10] 06/06/2006 Health maintenance examination [Z00.00] 09/29/2011 02/15/2013 Anxiety [F41.9] 11/16/2012 Herniated lumbar intervertebral disc [M51.26] Mixed hyperlipidemia [E78.2] 03/20/2013 Nuclear sclerotic cataract of both eyes [H25.13]05/30/2015 Other chronic allergic conjunctivitis [H10.45] 05/30/2015 08/17/2018 Degenerative retinal drusen of both eyes [H35.3*05/30/2015 Vitreous syneresis of both eyes [H43.393] 05/30/2015 Posterior vitreous detachment of left eye [H43.*08/31/2016 Senile nuclear sclerosis [H25.10] 05/17/2017 Posterior vitreous detachment of right eye [H43*09/09/2017 Type 2 diabetes mellitus with retinopathy, with*09/09/2017 Senile nuclear sclerosis, bilateral [H25.13] 09/09/2017 Peripheral retinal degeneration, paving stone, *09/09/2017 Matthew's esophagus [K22.70] 04/01/2016 08/28/2018 Leg cramps [R25.2] 01/30/2018 Uncontrolled type 2 diabetes mellitus with stag*01/30/2018 02/24/2019 Decreased libido [R68.82] 01/30/2018 Dupuytren contracture [M72.0] 08/25/2017 08/17/2018 Trigger middle finger of right hand [M65.331] 08/25/2017 08/17/2018 Trigger ring finger of left hand [M65.342] 08/25/2017 08/17/2018 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 [K22.70] 07/06/2018 Hematuria [R31.9] 12/15/2018 12/16/2018 Controlled type 2 diabetes mellitus with stage *02/24/2019 Lumbar radiculopathy [M54.16] 02/24/2019 Chronic insomnia [F51.04] 02/24/2019 Malignant melanoma of torso excluding breast (H*02/11/2020 Low testosterone in male [R79.89] 06/21/2020 Iron deficiency anemia [D50.9] 06/21/2020 History of depression [Z86.59] Ex-smoker [Z87.891] 05/20/2021 Gastroesophageal reflux disease with esophagiti*05/20/2021 ED (erectile dysfunction) [N52.9] 05/20/2021 SVT (supraventricular tachycardia) (HCC) [I47.1*05/20/2021 AK (actinic keratosis) [L57.0] 05/20/2021 Irritable bowel syndrome with both constipation*07/31/20 RUQ abdominal pain [R10.11] 07/31/2021 History of COVID-19 [Z86.16] 08/03/2021 Renal cyst, right [N28.1] 08/10/2021 Liver cyst [K76.89] more content not included)... Normal [facility] 10-17-2024 [facility] Tele[facility] (FAMWS) DAR ROSE ([id number]) 1955 Date Time Provider Department 10/17/24 [facility] During your visit today, we recorded the following information about you: Kori Mike LPN 10/17/2024 9:24 AM Signed Pt calling to let you know he has been off the Trulicity for 2 months due to change in insurance. Pt was given the higher dose of Trulicity but felt he needed to start back on the lower dose. Pt's insurance will not cover the lower dose. Pt would like to not take Trulicity and start on Ozempic at the lower dose. Please advise pt. TIA Holloway Jeffrey A, MD 10/17/2024 10:14 AM Signed Let patient know script for Ozempic at starting dose sent. The following approved medication requests have been transmitted electronically. Requested Prescriptions Signed Prescriptions Disp Refills semaglutide (OZEMPIC) 0.25 mg or 0.5 mg (2 mg/3 mL) pen 1 Each 1 Sig: Inject 0.25 mg subcutaneously one time a week. Authorizing Provider: CRUZ PRADO MD James, Roxanne, MA 10/17/2024 10:42 AM Signed Patient notified and voiced understanding. Milind Denis MA Allergies As of Date: 10/17/2024 Noted Allergy Reaction BEE STING 09/29/2011 10 - Anaphylaxis AMITRIPTYLINE 12/30/2017 5 - Intolerance Comments: Did not tolerate. TRAMADOL 08/17/2018 11 - Vomiting Date Reviewed: 07/12/2024 Reviewed by: Raul Domingo LPN - Fully Assessed Reason for Visit: medication issue [Other] Primary Visit Diagnosis:Controlled type 2 diabetes mellitus with stage 3 chronic kidney disease, without long-term current use of insulin (HCC) [E11.22, N18.30] Other Visit Diagnosis: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) [E11.42] Order(s):semaglutide (OZEMPIC) 0.25 mg or 0.5 mg (2 mg/3 mL) penInject 0.25 mg subcutaneously one time a week.Disp: 1 EachRfl: 1 Prescriptions as of 10/17/2024 - semaglutide (OZEMPIC) 0.25 mg or 0.5 mg (2 mg/3 mL) pen Inject 0.25 mg subcutaneously one time a week. - ferrous sulfate (SLOW FE) 137 mg (45 mg iron) TbER Take 1 tablet by mouth every other day. - metFORMIN (GLUCOPHAGE) 1,000 mg tablet Take 1 tablet by mouth two times a day with meals. - traZODone (DESYREL) 50 mg tablet Take 1 tablet by mouth daily at bedtime. - baclofen 10 mg tablet Take 1 tablet by mouth three times a day as needed (muscle spasms). - dicyclomine (BENTYL) 10 mg capsule Take 1 capsule by mouth before meals and at bedtime. PRN - EPINEPHrine (AUVI-Q) 0.3 mg/0.3 mL auto-injector Inject 0.3 mL intramuscularly as needed. - fluticasone (FLONASE) 50 mcg/actuation nasal spray Use 2 Sprays in each nostril once daily. Rinse mouth after use. - esomeprazole (NEXIUM) 40 mg capsule Take 1 capsule by mouth once daily. - atorvastatin (LIPITOR) 10 mg tablet Take 1 tablet by mouth daily at bedtime. For cholesterol. - docusate sodium (COLACE) 100 mg capsule Take 1 capsule by mouth two times a day as needed for constipation. - ondansetron orally disintegrating (ZOFRAN ODT) 4 mg disintegrating tablet Take 1 tablet by mouth every 6 hours as needed for nausea/vomiting. - blood sugar diagnostic (BLOOD GLUCOSE TEST) test strip Test blood sugar(s) 2 times daily. Dx: Other DM Code E11.22 Insulin: Yes - losartan (COZAAR) 100 mg tablet Take 1 tablet by mouth once daily. - carvedilol (COREG) 25 mg tablet Take 1 tablet by mouth twice daily. Per Cardio, Dr. Schneider - amLODIPine (NORVASC) 10 mg tablet Take 1 tablet by mouth once daily. Per Cardio, Dr. Schneider - Lancets lancets Test blood sugar(s) 2 times daily. Dx: Other DM Code E11.22 Insulin: Yes Meds Comments as of 09/09/2017: Patient states that he is on a new medication and unsure of the name at this time. Problem List As Of Date 10/17/2024 Noted Resolved Essential hypertension, benign [I10] 06/06/2006 Health maintenance examination [Z00.00] 09/29/2011 02/15/2013 Anxiety [F41.9] 11/16/2012 Herniated lumbar intervertebral disc [M51.26] Mixed hyperlipidemia [E78.2] 03/20/2013 Nuclear sclerotic cataract of both eyes [H25.13]05/30/2015 Other chronic allergic conjunctivitis [H10.45] 05/30/2015 08/17/2018 Degenerative retinal drusen of both eyes [H35.3*05/30/2015 Vitreous syneresis of both eyes [H43.393] 05/30/2015 Posterior vitreous detachment of left eye [H43.*08/31/2016 Senile nuclear sclerosis [H25.10] 05/17/2017 Posterior vitreous detachment of right eye [H43*09/09/2017 Type 2 diabetes mellitus with retinopathy, with*09/09/2017 Senile nuclear sclerosis, bilateral [H25.13] 09/09/2017 Peripheral retinal degeneration, paving stone, *09/09/2017 Matthew's esophagus [K22.70] 04/01/2016 08/28/2018 Leg cramps [R25.2] 01/30/2018 Uncontrolled type 2 diabetes mellitus with stag*01/30/2018 02/24/2019 Decreased libido [R68.82] 01/30/2018 Dupuytren contracture [M72.0] (more content not included)... [facility] ([id number]) 1955 M Date Time Provider Department 10/17/24 CRUZ PRADO INTMWS During your visit today, we recorded the following information about you: Patricai Johnson LPN 10/18/2024 11:30 AM Addendum PA completed for ozemppic. Geri Baptiste MA 10/18/2024 5:59 PM Addendum PA is denied did call Rx benefits to see why denied and was due to documetntaion not received. Completed all new PA and faxed with chart notes/a1c GALLO Dubon Janice, LPN 10/19/2024 8:35 AM Signed Appeal approval rec'd for Ozmepic 0.25/0.5mg pens from 10/18/24 to 10/17/25. Pharmacy notified and pt via my chart. Shabana Reed LPN 10/19/2024 10:21 AM Signed Patient calling asking about PA, went over notes below with understanding. Allergies As of Date: 10/17/2024 Noted Allergy Reaction BEE STING 09/29/2011 10 - Anaphylaxis AMITRIPTYLINE 12/30/2017 5 - Intolerance Comments: Did not tolerate. 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 Dx: Other DM Code E11.22 Insulin: No - Lancets Test blood sugar(s) 2 times daily. Dx: Other DM Code E11.22 Insulin: No - Blood-Glucose Meter monitoring kit Glucose Meter of Choice - Kit - Dx: Other DM Code E11.22 - semaglutide (OZEMPIC) 0.25 mg or 0.5 mg (2 mg/3 mL) pen Inject 0.25 mg subcutaneously one time a week. - ferrous sulfate (SLOW FE) 137 mg (45 mg iron) TbER Take 1 tablet by mouth every other day. - metFORMIN (GLUCOPHAGE) 1,000 mg tablet Take 1 tablet by mouth two times a day with meals. - traZODone (DESYREL) 50 mg tablet Take 1 tablet by mouth daily at bedtime. - baclofen 10 mg tablet Take 1 tablet by mouth three times a day as needed (muscle spasms). - dicyclomine (BENTYL) 10 mg capsule Take 1 capsule by mouth before meals and at bedtime. PRN - EPINEPHrine (AUVI-Q) 0.3 mg/0.3 mL auto-injector Inject 0.3 mL intramuscularly as needed. - fluticasone (FLONASE) 50 mcg/actuation nasal spray Use 2 Sprays in each nostril once daily. Rinse mouth after use. - esomeprazole (NEXIUM) 40 mg capsule Take 1 capsule by mouth once daily. - atorvastatin (LIPITOR) 10 mg tablet Take 1 tablet by mouth daily at bedtime. For cholesterol. - docusate sodium (COLACE) 100 mg capsule Take 1 capsule by mouth two times a day as needed for constipation. - ondansetron orally disintegrating (ZOFRAN ODT) 4 mg disintegrating tablet Take 1 tablet by mouth every 6 hours as needed for nausea/vomiting. - losartan (COZAAR) 100 mg tablet Take 1 tablet by mouth once daily. - carvedilol (COREG) 25 mg tablet Take 1 tablet by mouth twice daily. Per Cardio, Dr. Schneider - amLODIPine (NORVASC) 10 mg tablet Take 1 tablet by mouth once daily. Per Cardio, Dr. Schneider Meds Comments as of 09/09/2017: Patient states that he is on a new medication and unsure of the name at this time. Problem List As Of Date 10/17/2024 Noted Resolved Essential hypertension, benign [I10] 06/06/2006 Health maintenance examination [Z00.00] 09/29/2011 02/15/2013 Anxiety [F41.9] 11/16/2012 Herniated lumbar intervertebral disc [M51.26] Mixed hyperlipidemia [E78.2] 03/20/2013 Nuclear sclerotic cataract of both eyes [H25.13]05/30/2015 Other chronic allergic conjunctivitis [H10.45] 05/30/2015 08/17/2018 Degenerative retinal drusen of both eyes [H35.3*05/30/2015 Vitreous syneresis of both eyes [H43.393] 05/30/2015 Posterior vitreous detachment of left eye [H43.*08/31/2016 Senile nuclear sclerosis [H25.10] 05/17/2017 Posterior vitreous detachment of right eye [H43*09/09/2017 Type 2 diabetes mellitus with retinopathy, with*09/09/2017 Senile nuclear sclerosis, bilateral [H25.13] 09/09/2017 Peripheral retinal degeneration, paving stone, *09/09/2017 Matthew's esophagus [K22.70] 04/01/2016 08/28/2018 Leg cramps [R25.2] 01/30/2018 Uncontrolled type 2 diabetes mellitus with stag*01/30/2018 02/24/2019 Decreased libido [R68.82] 01/30/2018 Dupuytren contracture [M72.0] 08/25/2017 08/17/2018 Trigger middle finger of right hand [M65.331] 08/25/2017 08/17/2018 Trigger ring finger of left hand [M65.342] 08/25/2017 08/17/2018 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 [K22.70] 07/06/2018 Hematuria [R31.9] 12/15/2018 12/16/2018 Controlled type 2 diabetes mellitus with stage *02/24/2019 Lumbar radiculopathy [M54.16] 02/24/2019 Chronic insomnia [F51.04] 02/24/2019 Malignant melanoma of torso exclud (more content not included)... Normal [facility] ABD Limited w/ Elastographyo n 10-15-2024 ABD Limited w/ Elastography [facility] Services [address] [place] [address] [id number] ABD Limited w/ Elastography MR#: [id number] Acct: [id number] Name: DAR ROSE Rep #: [id number] : 1955 M 69 From: Murphy scott MD PCP: Dr. Cruz Prado MD Status: [facility] CL Study: ABD Limited w/ Elastography Date of Exam: 09/30 04/23 Exam# [id number] Ordering Dr: Irma Brown [employer]ERGROUND [employer]OOF BOLTER- Sukumar [id number] STUDY: ABDOMINAL ULTRASOUND - RIGHT UPPER QUADRANT; ELASTOGRAPHY REASON FOR VISIT: Male, 69 years old. Steatosis. Right upper quadrant pain. TECHNIQUE: Ultrasound evaluation of the right upper quadrant was performed with real-time and static almanza-scale imaging. Point quantification shear wave elastography was performed ([employer]). TECHNICAL QUALITY: Adequate. COMPARISON: None. FINDINGS: Liver: The liver measures 17.7 cm. There is increased echogenicity consistent with fatty infiltration. The bile ducts are within normal limits. There is hepatic color flow. The direction of portal flow is hepatopetal. There is a 2.7 cm x 1.9 cm x 1.8 cm cyst in the mid inferior aspect of the right lobe. There is also evidence of a 11 cm x 9.97 x 11 cm cyst in the inferior aspect of the right lobe of the liver. Median liver stiffness measured 8.7 kPa. Gallbladder: Normal distended gallbladder. The gallbladder wall measures 3 mm. There is a negative sonographic Mahoney''s sign. There is no pericholecystic fluid. There are no gallstones. Sludge is seen in the gallbladder lumen. Common Bile Duct (C.B.D.): The common bile duct measures 3.1 mm. Pancreas: There is normal echogenicity of the visualized pancreas. There is no demonstrated pancreatic mass or cyst. Right Kidney: Normal size of the right kidney. The right kidney measures 10.1 sono by 5.6 cm x 4.7 cm. Normal renal cortex. The right cortex measures 1.1 cm. There is a 2.3 cm x 2.7 x 2 cm cyst in the upper pole of the right kidney. There is no right hydronephrosis. US/ABD Limited w/ Elastography IMPRESSION: 1. Liver stiffness measures 8.7 kPa compatible with F2-F3 (Mild to moderate liver fibrosis) Metavir score. 2. Sludge is seen in the gallbladder lumen. 3. Cysts in the right lobe of liver. 4. Right renal cyst. Electronically Signed: Murphy Fan MD at 15:23 EST , CC: AKOSUA Brown; Dr. Cruz Prado MD Kitchen Aide: [facility]FAMPWS[facility] MILTONDAR Coello ([id number]) 1955 M Date Time Provider Department 10/08/24 [facility] During your visit today, we recorded the following information about you: Milind Denis MA 10/08/2024 11:07 AM Signed Was speaking to the patient regarding his medications and he indicated that was billed for $840.00 for an office visit in 07/12/2024. Patient indicated that he has no recollection of coming in and the reason he wouldn't have come in because he was without insurance from July until August so he didn't come in as to not incur any medication bills and he would not have come in for just a follow up. I explained that it shows that an appointment was made; and he checked into the [employer] machine on 07/12/12 and that Anette did a routine visit. I indicated that vitals were completed and complete chart shows. Again patient indicated that he didn't come in. GALLO Leung Rayanne, PA-C 10/08/2024 11:18 AM Signed The visit occurred. He will need to speak with the financial department if he is concerned about cost. NELY Castillo Sherill A, LPN 10/08/2024 12:59 PM Signed Spoke with pt and advised him of Anette's message and instructions. Pt verbalizes understanding. Pt was not where he could write down denny phone numbers. Advised pt that this nurse could send them to him through My Chart. Pt agreeable to this. Phone numbers to [facility] billing sent to pt via . Raul Domingo LPN Allergies As of Date: 10/08/2024 Noted Allergy Reaction BEE STING 09/29/2011 10 - Anaphylaxis AMITRIPTYLINE 12/30/2017 5 - Intolerance Comments: Did not tolerate. TRAMADOL 08/17/2018 11 - Vomiting Date Reviewed: 07/12/2024 Reviewed by: Raul Domingo LPN - Fully Assessed Reason for Visit: Appointment [186] Prescriptions as of 10/08/2024 - dulaglutide (TRULICITY) 0.75 mg/0.5 mL pen injector Inject 0.75 mg subcutaneously one time a week. Inject dose once per week. Discard Pen After - dulaglutide (TRULICITY) 1.5 mg/0.5 mL pen injector Inject 1.5 mg subcutaneously one time a week. Inject once per week. Discard Pen After - ferrous sulfate (SLOW FE) 137 mg (45 mg iron) TbER Take 1 tablet by mouth every other day. - metFORMIN (GLUCOPHAGE) 1,000 mg tablet Take 1 tablet by mouth two times a day with meals. - traZODone (DESYREL) 50 mg tablet Take 1 tablet by mouth daily at bedtime. - baclofen 10 mg tablet Take 1 tablet by mouth three times a day as needed (muscle spasms). - dicyclomine (BENTYL) 10 mg capsule Take 1 capsule by mouth before meals and at bedtime. PRN - EPINEPHrine (AUVI-Q) 0.3 mg/0.3 mL auto-injector Inject 0.3 mL intramuscularly as needed. - fluticasone (FLONASE) 50 mcg/actuation nasal spray Use 2 Sprays in each nostril once daily. Rinse mouth after use. - esomeprazole (NEXIUM) 40 mg capsule Take 1 capsule by mouth once daily. - atorvastatin (LIPITOR) 10 mg tablet Take 1 tablet by mouth daily at bedtime. For cholesterol. - docusate sodium (COLACE) 100 mg capsule Take 1 capsule by mouth two times a day as needed for constipation. - ondansetron orally disintegrating (ZOFRAN ODT) 4 mg disintegrating tablet Take 1 tablet by mouth every 6 hours as needed for nausea/vomiting. - blood sugar diagnostic (BLOOD GLUCOSE TEST) test strip Test blood sugar(s) 2 times daily. Dx: Other DM Code E11.22 Insulin: Yes - losartan (COZAAR) 100 mg tablet Take 1 tablet by mouth once daily. - carvedilol (COREG) 25 mg tablet Take 1 tablet by mouth twice daily. Per Cardio, Dr. Schneider - amLODIPine (NORVASC) 10 mg tablet Take 1 tablet by mouth once daily. Per Cardio, Dr. Schneider - Lancets lancets Test blood sugar(s) 2 times daily. Dx: Other DM Code E11.22 Insulin: Yes Meds Comments as of 09/09/2017: Patient states that he is on a new medication and unsure of the name at this time. Problem List As Of Date 10/08/2024 Noted Resolved Essential hypertension, benign [I10] 06/06/2006 Health maintenance examination [Z00.00] 09/29/2011 02/15/2013 Anxiety [F41.9] 11/16/2012 Herniated lumbar intervertebral disc [M51.26] Mixed hyperlipidemia [E78.2] 03/20/2013 Nuclear sclerotic cataract of both eyes [H25.13]05/30/2015 Other chronic allergic conjunctivitis [H10.45] 05/30/2015 08/17/2018 Degenerative retinal drusen of both eyes [H35.3*05/30/2015 Vitreous syneresis of both eyes [H43.393] 05/30/2015 Posterior vitreous detachment of left eye [H43.*08/31/2016 Senile nuclear sclerosis [H25.10] 05/17/2017 Posterior vitreous detachment of right eye [H43*09/09/2017 Type 2 diabetes mellitus with retinopathy, with*09/09/2017 Senile nuclear sclerosis, bilateral [H25.13] 09/09/2017 Peripheral retinal degeneration, paving stone, *09/09/2017 Matthew's esophagus [K22.70] 04/01/2016 08/28/2018 Leg cramps [R25.2] 01/30/2018 Uncontrolled type 2 diabetes reji (more content not included)... Normal [facility] CNPN Telephone (FAMPWS) DAR ROSE ([id number]) 1955 Date Time Provider Department 10/08/24 CRUZ PRADO During your visit today, we recorded the following information about you: Jenn Goodman RN 10/08/2024 10:08 AM Signed Patient calls to ask about Trulicity 1.5 mg. Patient reports that he went without Trulicity for two months because of insurance. He now has Trulicity medication back. Took first dose last Tuesday10/01/2024 and experienced facial flushing and face felt like it was on fire for a couple of days. No breathing difficulties. Patient asking if he should continue taking the Trulicity 1.5 mg dose or should he have started back on the lower dose (he would need a prescription for this). Please review and advise, PATEL Colindres Jeffrey A, MD 10/08/2024 10:24 AM Signed Let patient know he needs to start back at the starting dose of 0.75 mg a week for the first month and then go back to the 1.5 mg dosing. The following approved medication requests have been transmitted electronically. Requested Prescriptions Signed Prescriptions Disp Refills dulaglutide (TRULICITY) 0.75 mg/0.5 mL pen injector 1 Each 0 Sig: Inject 0.75 mg subcutaneously one time a week. Inject dose once per week. Discard Pen After Authorizing Provider: CRUZ PRADO MD James, Roxanne, MA 10/08/2024 11:02 AM Signed Spoke with patient and gave instructions. Patient would like this to go [facility] pharmacy. Removed Drug [place]. GALLO Leung Jeffrey A, MD 10/08/2024 11:11 AM Signed The following approved medication requests have been transmitted electronically. Requested Prescriptions Signed Prescriptions Disp Refills dulaglutide (TRULICITY) 0.75 mg/0.5 mL pen injector 1 Each 0 Sig: Inject 0.75 mg subcutaneously one time a week. Inject dose once per week. Discard Pen After Authorizing Provider: CRUZ PRADO MD Allergies As of Date: 10/08/2024 Noted Allergy Reaction BEE STING 09/29/2011 10 - Anaphylaxis AMITRIPTYLINE 12/30/2017 5 - Intolerance Comments: Did not tolerate. TRAMADOL 08/17/2018 11 - Vomiting Date Reviewed: 07/12/2024 Reviewed by: Raul Domingo LPN - Fully Assessed Reason for Visit: Patient Question [1477] Order(s):dulaglutide (TRULICITY) 0.75 mg/0.5 mL pen injectorInject 0.75 mg subcutaneously one time a week. Inject dose once per week. Discard Pen AfterDisp: 1 EachRfl: 0 Prescriptions as of 10/08/2024 - dulaglutide (TRULICITY) 0.75 mg/0.5 mL pen injector Inject 0.75 mg subcutaneously one time a week. Inject dose once per week. Discard Pen After - dulaglutide (TRULICITY) 1.5 mg/0.5 mL pen injector Inject 1.5 mg subcutaneously one time a week. Inject once per week. Discard Pen After - ferrous sulfate (SLOW FE) 137 mg (45 mg iron) TbER Take 1 tablet by mouth every other day. - metFORMIN (GLUCOPHAGE) 1,000 mg tablet Take 1 tablet by mouth two times a day with meals. - traZODone (DESYREL) 50 mg tablet Take 1 tablet by mouth daily at bedtime. - baclofen 10 mg tablet Take 1 tablet by mouth three times a day as needed (muscle spasms). - dicyclomine (BENTYL) 10 mg capsule Take 1 capsule by mouth before meals and at bedtime. PRN - EPINEPHrine (AUVI-Q) 0.3 mg/0.3 mL auto-injector Inject 0.3 mL intramuscularly as needed. - fluticasone (FLONASE) 50 mcg/actuation nasal spray Use 2 Sprays in each nostril once daily. Rinse mouth after use. - esomeprazole (NEXIUM) 40 mg capsule Take 1 capsule by mouth once daily. - atorvastatin (LIPITOR) 10 mg tablet Take 1 tablet by mouth daily at bedtime. For cholesterol. - docusate sodium (COLACE) 100 mg capsule Take 1 capsule by mouth two times a day as needed for constipation. - ondansetron orally disintegrating (ZOFRAN ODT) 4 mg disintegrating tablet Take 1 tablet by mouth every 6 hours as needed for nausea/vomiting. - blood sugar diagnostic (BLOOD GLUCOSE TEST) test strip Test blood sugar(s) 2 times daily. Dx: Other DM Code E11.22 Insulin: Yes - losartan (COZAAR) 100 mg tablet Take 1 tablet by mouth once daily. - carvedilol (COREG) 25 mg tablet Take 1 tablet by mouth twice daily. Per Cardio, Dr. Schneider - amLODIPine (NORVASC) 10 mg tablet Take 1 tablet by mouth once daily. Per Cardio, Dr. Schneider - Lancets lancets Test blood sugar(s) 2 times daily. Dx: Other DM Code E11.22 Insulin: Yes Meds Comments as of 09/09/2017: Patient states that he is on a new medication and unsure of the name at this time. Problem List As Of Date 10/08/2024 Noted Resolved Essential hypertension, benign [I10] 06/06/2006 Health maintenance examination [Z00.00] 09/29/2011 02/15/2013 Anxiety [F41.9] 11/16/2012 Herniated lumbar intervertebral disc [M51.26] Mixed hyperlipidemia [E78.2] 03/20/2013 Nuclear sclerotic cataract of both eyes [H25.13]05/30/2015 O (more content not included)... Normal [facility] Gastroenterology Visit Repor ton 09-24-2024 Gastroenterology Visit Report [facility] Gastroenterology [address] [place] [address] OFFICE VISIT Date of Service: 09/24/24 MR#: [id number] Acct: [id number] Name: DAR ROSE Rep #: [id number] : 1955 Provider: AKOSUA medina Age/Sex: 68/M [place] [facility] [place]: Signed Intake Vital Signs 06/20/23 11:41 09/24/24 08:36 Height 5 ft 10.08 in Weight: 200 lb 6 oz BP 130/85 H Respiration 16 Pulse 63 Pulse Oximetry (%) 97 Oxygen Delivery Method room air Intake Visit Reasons: Right side pain Chief Complaint: RUQ pain [place] Required: No Is patient in pain?: Yes Allergies tramadol Allergy (Mild, Verified 09/24/24 08:26) rash amitriptyline Allergy (Verified 09/24/24 08:26) Hives bee venom protein (honey bee) Allergy (Verified 09/24/24 08:26) Anaphylaxis Medications ???Medication ???Instructions ???Recorded ???Confirmed ???Type metformin 1,000 mg tablet 1,000 mg PO BIDCM 10/21/21 09/24/24 History epinephrine 0.3 mg/0.3 mL 0.3 ml subcut ONCE PRN anaphylaxis 10/20/22 09/24/24 History injection, auto-injector fluticasone propionate 50 2 spray intranasal DAILY PRN nasal 10/20/22 09/24/24 History mcg/actuation nasal congestion spray,suspension amlodipine 10 mg tablet 10 mg PO DAILY #90 tabs 09/06/24 09/24/24 Rx carvedilol 25 mg tablet 25 mg PO BID #180 tabs 09/06/24 09/24/24 Rx losartan 100 mg tablet 100 mg PO DAILY #90 tabs 09/06/24 09/24/24 Rx atorvastatin 10 mg tablet (Lipitor) 10 mg PO QHS 09/24/24 09/24/24 History baclofen 10 mg tablet 10 mg PO QHS PRN 09/24/24 09/24/24 History dicyclomine 10 mg capsule 10 mg PO BID #180 caps 09/24/24 09/24/24 Rx dulaglutide 1.5 mg/0.5 mL 1.5 mg subcut QWEEK 09/24/24 09/24/24 History subcutaneous pen injector (Trulicity) esomeprazole magnesium 40 mg 40 mg PO DAILY #90 caps 09/24/24 09/24/24 Rx capsule,delayed release trazodone 100 mg tablet 50 mg PO QHS 09/24/24 09/24/24 History Have you fallen in the past year?: No Nurse's Note: Feels like something is stuck in the right abd. This has been happening off and on for years. Walking helps. Bowel habits are unpredictable. They range from normal to constipation to diarrhea. Had a colonoscopy and EGD a few years ago at [facility]. [facility] Medical History Anxiety Back problem BPH (benign prostatic hyperplasia) COVID-19 virus detected (07/06/21) Depression Dyslipidemia Essential hypertension GERD (gastroesophageal reflux disease) Paroxysmal supraventricular tachycardia Superficial spreading malignant melanoma of skin Type 2 diabetes mellitus Surgical History History of colonoscopy History of prostatectomy History of radiofrequency ablation procedure for cardiac arrhythmia (2013) History of repair of left rotator cuff History of tonsillectomy Family History Mother Cancer lung Father Alzheimer disease Son No problems noted. Social History Smoking Status: Former smoker how long ago did patient quit smokin years ago alcohol intake: current alcohol intake frequency: holidays/special occasions only substance use type: does not use caffeine: Yes Type: coffee HPI HPI Chief Complaint: RUQ pain Details: 68y/o male presents for c/o right sided abdominal pain. COLON: 06/01/2022 diverticulosis - recall 10 years EGD: 06/01/2022 short-segment Matthew's w/o dysplasia US: 2020 2 cysts are seen within the liver. The larger within the left lobe posteriorly measures 3.3 x 3.0 x 2.2 cm and demonstrates a thin septation. The smaller is within the inferior right hepatic lobe and measures 2.5 x 2.4 x 1.8 cm. - denies any family h/o colon or esophageal cancer - son with UC - personal h/o prostatectomy - s/p cardiac ablation - does not take any anticoagulants - bowel habits are unpredictable - right sided abdominal discomfort - reports a significant improvement with dicyclomine - HB well controlled with Nexium 40mg daily - he can have 2-3 BM a day that are small, diarrhea or constipation - alternating bowels have been an issue for many years - was using Dicyclomine in the past - states this has helped with bowels and RUQ discomfort in the past - RUQ discomfort has been present for many years - radiates through to his back at times - denies any N/V - denies any weight loss - denies any change with PO intake - 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 [facility] Telephone (INTMWS) DAR ROSE ([id number]) 1955 M Date Time Provider Department 09/21/24 CRUZ PRADO INTMWS During your visit today, we recorded the following information about you: Patricia Johnson LPN 09/21/2024 3:08 PM Signed ELECTRONIC PA REC'D AND COMPLETED FOR Geri Francisco MA 09/24/2024 3:23 PM Signed Rx needs completed through rx[facility] Completed through portal Prior Auth (EOC) ID: [id number] MemberID: [id number] [email or web address]_so- [email or web address] Dutm_medium=referralA NDutm_campaign=prior+ auth+Geri Barr MA 09/26/2024 3:06 PM Signed PA approved till 09/23/25 and was faxed to pharmacy. Patient was notified. Geri Baptiste MA Allergies As of Date: 09/21/2024 Noted Allergy Reaction BEE STING 09/29/2011 10 - Anaphylaxis AMITRIPTYLINE 12/30/2017 5 - Intolerance Comments: Did not tolerate. TRAMADOL 08/17/2018 11 - Vomiting Date Reviewed: 07/12/2024 Reviewed by: Raul Domingo LPN - Fully Assessed Reason for Visit: Insurance Authorization [[id number]] Prescriptions as of 09/26/2024 - dulaglutide (TRULICITY) 1.5 mg/0.5 mL pen injector Inject 1.5 mg subcutaneously one time a week. Inject once per week. Discard Pen After - ferrous sulfate (SLOW FE) 137 mg (45 mg iron) TbER Take 1 tablet by mouth every other day. - metFORMIN (GLUCOPHAGE) 1,000 mg tablet Take 1 tablet by mouth two times a day with meals. - traZODone (DESYREL) 50 mg tablet Take 1 tablet by mouth daily at bedtime. - baclofen 10 mg tablet Take 1 tablet by mouth three times a day as needed (muscle spasms). - dicyclomine (BENTYL) 10 mg capsule Take 1 capsule by mouth before meals and at bedtime. PRN - EPINEPHrine (AUVI-Q) 0.3 mg/0.3 mL auto-injector Inject 0.3 mL intramuscularly as needed. - fluticasone (FLONASE) 50 mcg/actuation nasal spray Use 2 Sprays in each nostril once daily. Rinse mouth after use. - esomeprazole (NEXIUM) 40 mg capsule Take 1 capsule by mouth once daily. - atorvastatin (LIPITOR) 10 mg tablet Take 1 tablet by mouth daily at bedtime. For cholesterol. - docusate sodium (COLACE) 100 mg capsule Take 1 capsule by mouth two times a day as needed for constipation. - ondansetron orally disintegrating (ZOFRAN ODT) 4 mg disintegrating tablet Take 1 tablet by mouth every 6 hours as needed for nausea/vomiting. - blood sugar diagnostic (BLOOD GLUCOSE TEST) test strip Test blood sugar(s) 2 times daily. Dx: Other DM Code E11.22 Insulin: Yes - losartan (COZAAR) 100 mg tablet Take 1 tablet by mouth once daily. - carvedilol (COREG) 25 mg tablet Take 1 tablet by mouth twice daily. Per Cardio, Dr. Schneider - amLODIPine (NORVASC) 10 mg tablet Take 1 tablet by mouth once daily. Per Cardio, Dr. Schneider - Lancets lancets Test blood sugar(s) 2 times daily. Dx: Other DM Code E11.22 Insulin: Yes Meds Comments as of 09/09/2017: Patient states that he is on a new medication and unsure of the name at this time. Problem List As Of Date 09/21/2024 Noted Resolved Essential hypertension, benign [I10] 06/06/2006 Health maintenance examination [Z00.00] 09/29/2011 02/15/2013 Anxiety [F41.9] 11/16/2012 Herniated lumbar intervertebral disc [M51.26] Mixed hyperlipidemia [E78.2] 03/20/2013 Nuclear sclerotic cataract of both eyes [H25.13]05/30/2015 Other chronic allergic conjunctivitis [H10.45] 05/30/2015 08/17/2018 Degenerative retinal drusen of both eyes [H35.3*05/30/2015 Vitreous syneresis of both eyes [H43.393] 05/30/2015 Posterior vitreous detachment of left eye [H43.*08/31/2016 Senile nuclear sclerosis [H25.10] 05/17/2017 Posterior vitreous detachment of right eye [H43*09/09/2017 Type 2 diabetes mellitus with retinopathy, with*09/09/2017 Senile nuclear sclerosis, bilateral [H25.13] 09/09/2017 Peripheral retinal degeneration, paving stone, *09/09/2017 Matthew's esophagus [K22.70] 04/01/2016 08/28/2018 Leg cramps [R25.2] 01/30/2018 Uncontrolled type 2 diabetes mellitus with stag*01/30/2018 02/24/2019 Decreased libido [R68.82] 01/30/2018 Dupuytren contracture [M72.0] 08/25/2017 08/17/2018 Trigger middle finger of right hand [M65.331] 08/25/2017 08/17/2018 Trigger ring finger of left hand [M65.342] 08/25/2017 08/17/2018 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 [K22.70] 07/06/2018 Hematuria [R31.9] 12/15/2018 12/16/2018 Controlled type 2 diabetes mellitus with stage *02/24/2019 Lumbar radiculopathy [M54.16] 02/24/2019 Chronic insomnia [F51.04] 02/24/2019 Malignant melanoma of torso excluding breast (H*02/11/2020 Low testosterone in male [R79.89] 06/21/2020 Iron deficiency anemia [D50.9] 06/21/2020 History of depression [Z86.59] Ex-smoker [Z87.891] 05/20/2021 Gastroesophageal reflux disease with esophagiti*05/20/2021 ED (erectile dysfunction) [N52.9] 05/20/2021 SVT (supraventricular tachy (more content not included)... Normal [facility] 09-11-2024 [facility] Telephone (FAMPWS) DAR ROSE ([id number]) 1955 M Date Time Provider Department 09/11/24 MILIND DENIS [facility] During your visit today, we recorded the following information about you: Milind Denis MA 09/11/2024 10:42 AM Signed Let patient know I received a copy of his Hep B immunity test which shows he is not immune. He needs to get the Hep- B series. Milind Denis MA Spoke with patient and he just finished his series. Milind Denis MA Allergies As of Date: 09/11/2024 Noted Allergy Reaction BEE STING 09/29/2011 10 - Anaphylaxis AMITRIPTYLINE 12/30/2017 5 - Intolerance Comments: Did not tolerate. TRAMADOL 08/17/2018 11 - Vomiting Date Reviewed: 07/12/2024 Reviewed by: Raul Domingo LPN - Fully Assessed Reason for Visit: Results [95] Prescriptions as of 09/11/2024 - ferrous sulfate (SLOW FE) 137 mg (45 mg iron) TbER Take 1 tablet by mouth every other day. - metFORMIN (GLUCOPHAGE) 1,000 mg tablet Take 1 tablet by mouth two times a day with meals. - traZODone (DESYREL) 50 mg tablet Take 1 tablet by mouth daily at bedtime. - baclofen 10 mg tablet Take 1 tablet by mouth three times a day as needed (muscle spasms). - dulaglutide (TRULICITY) 1.5 mg/0.5 mL pen injector Inject 1.5 mg subcutaneously one time a week. Inject once per week. Discard Pen After - dicyclomine (BENTYL) 10 mg capsule Take 1 capsule by mouth before meals and at bedtime. PRN - EPINEPHrine (AUVI-Q) 0.3 mg/0.3 mL auto-injector Inject 0.3 mL intramuscularly as needed. - fluticasone (FLONASE) 50 mcg/actuation nasal spray Use 2 Sprays in each nostril once daily. Rinse mouth after use. - esomeprazole (NEXIUM) 40 mg capsule Take 1 capsule by mouth once daily. - atorvastatin (LIPITOR) 10 mg tablet Take 1 tablet by mouth daily at bedtime. For cholesterol. - docusate sodium (COLACE) 100 mg capsule Take 1 capsule by mouth two times a day as needed for constipation. - ondansetron orally disintegrating (ZOFRAN ODT) 4 mg disintegrating tablet Take 1 tablet by mouth every 6 hours as needed for nausea/vomiting. - blood sugar diagnostic (BLOOD GLUCOSE TEST) test strip Test blood sugar(s) 2 times daily. Dx: Other DM Code E11.22 Insulin: Yes - losartan (COZAAR) 100 mg tablet Take 1 tablet by mouth once daily. - carvedilol (COREG) 25 mg tablet Take 1 tablet by mouth twice daily. Per Cardio, Dr. Schneider - amLODIPine (NORVASC) 10 mg tablet Take 1 tablet by mouth once daily. Per Cardio, Dr. Schneider - Lancets lancets Test blood sugar(s) 2 times daily. Dx: Other DM Code E11.22 Insulin: Yes Meds Comments as of 09/09/2017: Patient states that he is on a new medication and unsure of the name at this time. Problem List As Of Date 09/11/2024 Noted Resolved Essential hypertension, benign [I10] 06/06/2006 Health maintenance examination [Z00.00] 09/29/2011 02/15/2013 Anxiety [F41.9] 11/16/2012 Herniated lumbar intervertebral disc [M51.26] Mixed hyperlipidemia [E78.2] 03/20/2013 Nuclear sclerotic cataract of both eyes [H25.13]05/30/2015 Other chronic allergic conjunctivitis [H10.45] 05/30/2015 08/17/2018 Degenerative retinal drusen of both eyes [H35.3*05/30/2015 Vitreous syneresis of both eyes [H43.393] 05/30/2015 Posterior vitreous detachment of left eye [H43.*08/31/2016 Senile nuclear sclerosis [H25.10] 05/17/2017 Posterior vitreous detachment of right eye [H43*09/09/2017 Type 2 diabetes mellitus with retinopathy, with*09/09/2017 Senile nuclear sclerosis, bilateral [H25.13] 09/09/2017 Peripheral retinal degeneration, paving stone, *09/09/2017 Matthew's esophagus [K22.70] 04/01/2016 08/28/2018 Leg cramps [R25.2] 01/30/2018 Uncontrolled type 2 diabetes mellitus with stag*01/30/2018 02/24/2019 Decreased libido [R68.82] 01/30/2018 Dupuytren contracture [M72.0] 08/25/2017 08/17/2018 Trigger middle finger of right hand [M65.331] 08/25/2017 08/17/2018 Trigger ring finger of left hand [M65.342] 08/25/2017 08/17/2018 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 [K22.70] 07/06/2018 Hematuria [R31.9] 12/15/2018 12/16/2018 Controlled type 2 diabetes mellitus with stage *02/24/2019 Lumbar radiculopathy [M54.16] 02/24/2019 Chronic insomnia [F51.04] 02/24/2019 Malignant melanoma of torso excluding breast (H*02/11/2020 Low testosterone in male [R79.89] 06/21/2020 Iron deficiency anemia [D50.9] 06/21/2020 History of depression [Z86.59] Ex-smoker [Z87.891] 05/20/2021 Gastroesophageal reflux disease with esophagiti*05/20/2021 ED (erectile dysfunction) [N52.9] 05/20/2021 SVT (supraventricular tachycardia) (HCC) [I47.1*05/20/2021 AK (actinic keratosis) [L57.0] 05/20/2021 Irritable bowel syndrome with both constipation*07/31/20 21 RUQ abdominal pain [R10.11] 07/31/2021 History of COVID-19 [Z86.16] 08/03/2021 Renal cyst, right [N28.1] 08/10/2021 Liver cyst [K76.89] 08/10/2021 Diabetic eye exam (HCC) [Z01.00, E11 (more content not included)... Normal [facility] Hepatitis B Surf AB - EMPon 09-07-2024 HEP B Surf Ab Reactive Normal [facility] Comment on above: Result Comment: Non Reactive: Inconsistent with immunity less than <10 mIU/mL Reactive: Consistent with immunity greater than or equal to 10 mIU/mL Performed By: #### L [phone] ####[facility] [id number] [place], [address] [facility] Telephone ([facility]) DAR ROSE ([id number]) 1955 M Date Time Provider Department 08/20/24 CRUZ PRADO [facility] During your visit today, we recorded the following information about you: An Renee 08/20/2024 10:00 AM Signed Patient requesting the following medication that is no longer on list. Patient last seen: 07-12-24 Future visit scheduled: yes PHARMACY: [facility]. Milind Denis MA 08/20/2024 10:15 AM Signed Prescription Refill Information The patient has been identified by name and date of : Yes Caregiver verified no other encounters exist for this prescription request: Yes Caregiver confirmed with patient/requestor that no other refills are due, in the near future, with this provider at this time: Yes The last office visit in the department: 07/2024 Does the patient have a future office visit with this provider/department: Yes 12/2024 Requested Prescriptions Pending Prescriptions Disp Refills esomeprazole (NEXIUM) 40 mg capsule 90 capsule 1 Sig: Take 1 capsule by mouth once daily. Milind Denis MA August 20, 2024 10:14 AM Allergies As of Date: 08/20/2024 Noted Allergy Reaction BEE STING 09/29/2011 10 - Anaphylaxis AMITRIPTYLINE 12/30/2017 5 - Intolerance Comments: Did not tolerate. TRAMADOL 08/17/2018 11 - Vomiting Date Reviewed: 07/12/2024 Reviewed by: Raul Domingo LPN - Fully Assessed Reason for Visit: requesting medication that is [Other] Primary Visit Diagnosis:Gastroesoph ageal reflux disease with esophagitis without hemorrhage [K21.00] Order(s):esomeprazole (NEXIUM) 40 mg capsuleTake 1 capsule by mouth once daily.Disp: 90 capsuleRfl: 1 Prescriptions as of 08/20/2024 - esomeprazole (NEXIUM) 40 mg capsule Take 1 capsule by mouth once daily. - atorvastatin (LIPITOR) 10 mg tablet Take 1 tablet by mouth daily at bedtime. For cholesterol. - docusate sodium (COLACE) 100 mg capsule Take 1 capsule by mouth two times a day as needed for constipation. - ferrous sulfate (SLOW FE) 137 mg (45 mg iron) TbER Take 1 tablet by mouth every other day. - metFORMIN (GLUCOPHAGE) 1,000 mg tablet Take 1 tablet by mouth two times a day with meals. - traZODone (DESYREL) 50 mg tablet Take 1 tablet by mouth daily at bedtime. - baclofen 10 mg tablet Take 1 tablet by mouth three times a day as needed (muscle spasms). - ondansetron orally disintegrating (ZOFRAN ODT) 4 mg disintegrating tablet Take 1 tablet by mouth every 6 hours as needed for nausea/vomiting. - dulaglutide (TRULICITY) 1.5 mg/0.5 mL pen injector Inject 1.5 mg subcutaneously one time a week. Inject once per week. Discard Pen After - dicyclomine (BENTYL) 10 mg capsule Take 1 capsule by mouth before meals and at bedtime. - EPINEPHrine (AUVI-Q) 0.3 mg/0.3 mL auto-injector Inject 0.3 mL intramuscularly as needed. - blood sugar diagnostic (BLOOD GLUCOSE TEST) test strip Test blood sugar(s) 2 times daily. Dx: Other DM Code E11.22 Insulin: Yes - fluticasone (FLONASE) 50 mcg/actuation nasal spray Use 2 Sprays in each nostril once daily. Rinse mouth after use. - losartan (COZAAR) 100 mg tablet Take 1 tablet by mouth once daily. - carvedilol (COREG) 25 mg tablet Take 1 tablet by mouth twice daily. Per Cardio, Dr. Schneider - amLODIPine (NORVASC) 10 mg tablet Take 1 tablet by mouth once daily. Per Cardio, Dr. Schneider - Lancets lancets Test blood sugar(s) 2 times daily. Dx: Other DM Code E11.22 Insulin: Yes Meds Comments as of 09/09/2017: Patient states that he is on a new medication and unsure of the name at this time. Problem List As Of Date 08/20/2024 Noted Resolved Essential hypertension, benign [I10] 06/06/2006 Health maintenance examination [Z00.00] 09/29/2011 02/15/2013 Anxiety [F41.9] 11/16/2012 Herniated lumbar intervertebral disc [M51.26] Mixed hyperlipidemia [E78.2] 03/20/2013 Nuclear sclerotic cataract of both eyes [H25.13]05/30/2015 Other chronic allergic conjunctivitis [H10.45] 05/30/2015 08/17/2018 Degenerative retinal drusen of both eyes [H35.3*05/30/2015 Vitreous syneresis of both eyes [H43.393] 05/30/2015 Posterior vitreous detachment of left eye [H43.*08/31/2016 Senile nuclear sclerosis [H25.10] 05/17/2017 Posterior vitreous detachment of right eye [H43*09/09/2017 Type 2 diabetes mellitus with retinopathy, with*09/09/2017 Senile nuclear sclerosis, bilateral [H25.13] 09/09/2017 Peripheral retinal degeneration, paving stone, *09/09/2017 Matthew's esophagus [K22.70] 04/01/2016 08/28/2018 Leg cramps [R25.2] 01/30/2018 Uncontrolled type 2 diabetes mellitus with stag*01/30/2018 02/24/2019 Decreased libido [R68.82] 01/30/2018 Dupuytren contracture [M72.0] 08/25/2017 08/17/2018 Trigger middle finger of right hand [M65.331] 08/25/2017 08/17/2018 Trigger ring finger of left hand [M65.342] 08/25/2017 08/17/2018 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 [K2 (more content not included)... [facility][id number][facility] 1955 M Date Time Provider Department 08/20/24 CRUZ PRADO During your visit today, we recorded the following information about you: Bebe Hines RN 08/20/2024 1:49 PM Signed Patient calling to request referral to GASTRO be faxed to [facility]. Order from 01/31/24, demographics and OV note faxed per request. Bebe Hines RN Allergies As of Date: 08/20/2024 Noted Allergy Reaction BEE STING 09/29/2011 10 - Anaphylaxis AMITRIPTYLINE 12/30/2017 5 - Intolerance Comments: Did not tolerate. TRAMADOL 08/17/2018 11 - Vomiting Date Reviewed: 07/12/2024 Reviewed by: Raul Domingo LPN - Fully Assessed Reason for Visit: Consult [502] Prescriptions as of 08/20/2024 - esomeprazole (NEXIUM) 40 mg capsule Take 1 capsule by mouth once daily. - atorvastatin (LIPITOR) 10 mg tablet Take 1 tablet by mouth daily at bedtime. For cholesterol. - docusate sodium (COLACE) 100 mg capsule Take 1 capsule by mouth two times a day as needed for constipation. - ferrous sulfate (SLOW FE) 137 mg (45 mg iron) TbER Take 1 tablet by mouth every other day. - metFORMIN (GLUCOPHAGE) 1,000 mg tablet Take 1 tablet by mouth two times a day with meals. - traZODone (DESYREL) 50 mg tablet Take 1 tablet by mouth daily at bedtime. - baclofen 10 mg tablet Take 1 tablet by mouth three times a day as needed (muscle spasms). - ondansetron orally disintegrating (ZOFRAN ODT) 4 mg disintegrating tablet Take 1 tablet by mouth every 6 hours as needed for nausea/vomiting. - dulaglutide (TRULICITY) 1.5 mg/0.5 mL pen injector Inject 1.5 mg subcutaneously one time a week. Inject once per week. Discard Pen After - dicyclomine (BENTYL) 10 mg capsule Take 1 capsule by mouth before meals and at bedtime. - EPINEPHrine (AUVI-Q) 0.3 mg/0.3 mL auto-injector Inject 0.3 mL intramuscularly as needed. - blood sugar diagnostic (BLOOD GLUCOSE TEST) test strip Test blood sugar(s) 2 times daily. Dx: Other DM Code E11.22 Insulin: Yes - fluticasone (FLONASE) 50 mcg/actuation nasal spray Use 2 Sprays in each nostril once daily. Rinse mouth after use. - losartan (COZAAR) 100 mg tablet Take 1 tablet by mouth once daily. - carvedilol (COREG) 25 mg tablet Take 1 tablet by mouth twice daily. Per Cardio, Dr. Schneider - amLODIPine (NORVASC) 10 mg tablet Take 1 tablet by mouth once daily. Per Cardio, Dr. Schneider - Lancets lancets Test blood sugar(s) 2 times daily. Dx: Other DM Code E11.22 Insulin: Yes Meds Comments as of 09/09/2017: Patient states that he is on a new medication and unsure of the name at this time. Problem List As Of Date 08/20/2024 Noted Resolved Essential hypertension, benign [I10] 06/06/2006 Health maintenance examination [Z00.00] 09/29/2011 02/15/2013 Anxiety [F41.9] 11/16/2012 Herniated lumbar intervertebral disc [M51.26] Mixed hyperlipidemia [E78.2] 03/20/2013 Nuclear sclerotic cataract of both eyes [H25.13]05/30/2015 Other chronic allergic conjunctivitis [H10.45] 05/30/2015 08/17/2018 Degenerative retinal drusen of both eyes [H35.3*05/30/2015 Vitreous syneresis of both eyes [H43.393] 05/30/2015 Posterior vitreous detachment of left eye [H43.*08/31/2016 Senile nuclear sclerosis [H25.10] 05/17/2017 Posterior vitreous detachment of right eye [H43*09/09/2017 Type 2 diabetes mellitus with retinopathy, with*09/09/2017 Senile nuclear sclerosis, bilateral [H25.13] 09/09/2017 Peripheral retinal degeneration, paving stone, *09/09/2017 Matthew's esophagus [K22.70] 04/01/2016 08/28/2018 Leg cramps [R25.2] 01/30/2018 Uncontrolled type 2 diabetes mellitus with stag*01/30/2018 02/24/2019 Decreased libido [R68.82] 01/30/2018 Dupuytren contracture [M72.0] 08/25/2017 08/17/2018 Trigger middle finger of right hand [M65.331] 08/25/2017 08/17/2018 Trigger ring finger of left hand [M65.342] 08/25/2017 08/17/2018 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 [K22.70] 07/06/2018 Hematuria [R31.9] 12/15/2018 12/16/2018 Controlled type 2 diabetes mellitus with stage *02/24/2019 Lumbar radiculopathy [M54.16] 02/24/2019 Chronic insomnia [F51.04] 02/24/2019 Malignant melanoma of torso excluding breast (H*02/11/2020 Low testosterone in male [R79.89] 06/21/2020 Iron deficiency anemia [D50.9] 06/21/2020 History of depression [Z86.59] Ex-smoker [Z87.891] 05/20/2021 Gastroesophageal reflux disease with esophagiti*05/20/2021 ED (erectile dysfunction) [N52.9] 05/20/2021 SVT (supraventricular tachycardia) (HCC) [I47.1*05/20/2021 AK (actinic keratosis) [L57.0] 05/20/2021 Irritable bowel syndrome with both constipation*07/31/20 21 RUQ abdominal pain [R10.11] 07/31/2021 History of COVID-19 [Z86.16] 08/03/2021 Renal cyst, right [N28.1] 08/10/2021 Liver cyst [K76.89] 08/10/2021 Diabetic eye exam (HCC) [Z01.00, E11.9] 03/18/2022 Retinopathy [H35.00] 03/19 (more content not included)... Normal [facility] US SCROTUM AND CONTENTSon US SCROTUM AND CONTENTS * * *Final Report* * * DATE OF EXAM: Oct 27 2023 9:07AM LDU 1063 - US SCROTUM AND CONTENTS / PROCEDURE REASON: Right testicular pain * * * * Physician Interpretation * * * * EXAMINATION: SCROTAL ULTRASOUND WITH DOPPLER IMAGING CLINICAL HISTORY: Right testicular pain TECHNIQUE: Sonography of the scrotal contents with color flow and spectral Doppler imaging of the testicular vasculature was performed. Images were obtained and stored in a permanent archive. M: [id number] COMPARISON: None RESULT: RIGHT SCROTUM: Right testis: 3.9 x 2.8 x 2.3 cm. Homogeneous with no calcifications or mass. Normal intratesticular arterial and venous flow with normal spectral waveforms. Epididymis: Normal. Vascular flow on Color Doppler is symmetric to the contralateral side. Hydrocele: Absent. Varicocele: Small. LEFT SCROTUM: Left testis: 2.9 x 2.9 x 1.7 cm. Homogeneous with no calcifications or mass. Normal intratesticular arterial and venous flow with normal spectral waveforms. Epididymis: Normal. Vascular flow on Color Doppler is symmetric to the contralateral side. Hydrocele: Absent. Varicocele: Small. IMPRESSION: 1. Small bilateral varicoceles. 2. Remainder of scrotal contents are normal. Kitchen Aide: LARRY Transcribe Date/Time: Oct 27 2023 9:12A Dictated by : PAYTON STAPLES MD This examination was interpreted and the report reviewed and electronically signed by: PAYTON STAPLES MD on Oct 27 2023 9:14AM EST [id number] N Normal [facility] COVID NAAT, UPPER RESPIRATOR Y, ROUTINEon 08-06-2023 SARS-CoV-2 (COVID-19) RNA CHRISTA+probe Ql (Resp) Not detected See comment [facility] ROUTINE FLU A/B + RSVon 10-0 FLUAV RNA CHRISTA+probe Ql (Unsp spec) Not detected Not Detected [facility] FLUBV RNA CHRISTA+probe Ql (Unsp spec) Not detected Not Detected [facility] RSV A RNA CHRISTA+probe Ql (Unsp spec) Not detected Not Detected [facility] XR HIP BILATERAL 5V PEL/AP/L AT EACH HIPon 01-26-2023 IMPRESSION: No acute osseous abnormality. Mild RIGHT hip osteoarthritis. Kitchen Aide: ROBERTS CHAPEL Transcribe Date/Time: Jan 26 2023 11:48A Dictated by : TUSHAR ESTRADA DO This examination was interpreted and the report reviewed and electronically signed by: TUSHAR ESTRADA DO on Jan 26 2023 11:51AM [facility] DIVISION OF RADIOLOGY * * *Final Report* * * DATE OF EXAM: Jan 21 2023 10:15AM WOX [id number] - XR HIP MADDY 5V PEL+ AP/LAT EA HIP / PROCEDURE REASON: multiple diagnoses * * * * Physician Interpretation * * * * EXAMINATION: XR HIP MADYD 5V PEL+ AP/LAT EA HIP PATIENT/TECHNOLOGIST PROVIDED HISTORY: pain for 6-9 months mostly in the right hip lateral side, left same not as bad no inj CLINICAL INFORMATION: 67 years old Male with Bilateral hip pain TECHNIQUE: XR HIP MADDY 5V PEL+ AP/LAT EA HIP Laterality: BILATERAL Number of different views (projections): 5 COMPARISON: None RESULT: No fracture. Mild RIGHT hip osteoarthritis. LEFT hip joint space is maintained. Degenerative changes RIGHT sacroiliac joint and lower lumbar spine. LEFT sacroiliac joint and pubic symphysis are within normal limits. DIVISION OF RADIOLOGY Provider, [facility] - 01/26/2023 * * *Final Report* * * DATE OF EXAM: Jan 21 2023 10:15AM WOX [id number] - XR HIP MADDY 5V PEL+ AP/LAT EA HIP / PROCEDURE REASON: multiple diagnoses * * * * Physician Interpretation * * * * EXAMINATION: XR HIP MADDY 5V PEL+ AP/LAT EA HIP PATIENT/TECHNOLOGIST PROVIDED HISTORY: pain for 6-9 months mostly in the right hip lateral side, left same not as bad no inj CLINICAL INFORMATION: 67 years old Male with Bilateral hip pain TECHNIQUE: XR HIP MADDY 5V PEL+ AP/LAT EA HIP Laterality: BILATERAL Number of different views (projections): 5 COMPARISON: None RESULT: No fracture. Mild RIGHT hip osteoarthritis. LEFT hip joint space is maintained. Degenerative changes RIGHT sacroiliac joint and lower lumbar spine. LEFT sacroiliac joint and pubic symphysis are within normal limits. IMPRESSION IMPRESSION: No acute osseous abnormality. Mild RIGHT hip osteoarthritis. Kitchen Aide: PSCB Transcribe Date/Time: Jan 26 2023 11:48A Dictated by : TUSHAR ESTRADA DO This examination was interpreted and the report reviewed and electronically signed by: TUSHAR ESTRADA DO on Jan 26 2023 11:51AM EST [facility] XR HIP BILATERAL 5V PEL/AP/L AT EACH HIPOrdered By: [facility] Provider on 01-26-2023 [facility] XR HIP BILATERAL 5V PEL/AP/L AT EACH HIPon 01-21-2023 Radiology Study observation (narrative) [facility] XR Lumbar spine AP and Later al and obliqueon 12-14-2022 IMPRESSION: Lower lumbar degenerative disc disease Kitchen Aide: LARRY Transcribe Date/Time: Dec 14 2022 1:28P Dictated by : CIRA CÁRDENAS MD This examination was interpreted and the report reviewed and electronically signed by: CIRA CÁRDENAS MD on Dec 14 2022 1:28PM EST DIVISION OF RADIOLOGY * * *Final Report* * * DATE OF EXAM: Dec 09 2022 11:54AM WOX [id number] - XR LUMBAR PARS 4V AP/LAT/OBL X2 / PROCEDURE REASON: Acute midline low back pain without sciatica * * * * Physician Interpretation * * * * PROCEDURE: Lumbar spine INDICATION: Acute midline low back pain without sciatica .Worsening lower back pain x6 months TECHNIQUE: XR LUMBAR PARS 4V AP/LAT/OBL X2 COMPARISON: None FINDINGS: Slight dextroscoliosis without fracture or subluxation. Mild to moderate L4-5 and moderate to advanced L5-S1 degenerative disc disease. No pars defects or significant facet arthrosis. Sacroiliac joints are maintained. DIVISION OF RADIOLOGY Provider, [facility] - 12/14/2022 * * *Final Report* * * DATE OF EXAM: Dec 09 2022 11:54AM WOX 5233 - XR LUMBAR PARS 4V AP/LAT/OBL X2 / PROCEDURE REASON: Acute midline low back pain without sciatica * * * * Physician Interpretation * * * * PROCEDURE: Lumbar spine INDICATION: Acute midline low back pain without sciatica .Worsening lower back pain x6 months TECHNIQUE: XR LUMBAR PARS 4V AP/LAT/OBL X2 COMPARISON: None FINDINGS: Slight dextroscoliosis without fracture or subluxation. Mild to moderate L4-5 and moderate to advanced L5-S1 degenerative disc disease. No pars defects or significant facet arthrosis. Sacroiliac joints are maintained. IMPRESSION IMPRESSION: Lower lumbar degenerative disc disease Kitchen Aide[facility] Transcribe Date/Time: Dec 14 2022 1:28P Dictated by : CIRA CÁRDENAS MD This examination was interpreted and the report reviewed and electronically signed by: CIRA CÁRDENAS MD on Dec 14 2022 1:28PM EST [facility] XR Lumbar spine AP and Later al and obliqueOrdered By: Ccf Provider on 12-14-2022 [facility] XR Lumbar spine AP and Later al and obliqueon 12-09-2022 Radiology Study observation (narrative) [facility] GLUCOSE, BLOOD (POC)on 06-01 Glucose [Mass/Vol] 80 mg/dL 74 - 99 mg/dL [facility] Glucose [Mass/Vol] 92 mg/dL 74 - 99 mg/dL [facility] No Panel Informationon 06-01 [facility] XR Abdomen Supine and Uprigh ton 08-03-2021 IMPRESSION: Nonobstructive bowel gas pattern. Large colonic stool burden, which may be seen with constipation. Kitchen Aide: ROBERTS [place] Transcribe Date/Time: Aug 03 2021 4:52P Dictated by : COLE ESTRADA MD This examination was interpreted and the report reviewed and electronically signed by: COLE ESTRADA MD on Aug 03 2021 4:53PM [facility] DIVISION OF RADIOLOGY * * *Final Report* * * DATE OF EXAM: Aug 03 2021 4:47PM WOX 5289 - XR ABDOMEN 1V SUPINE / PROCEDURE REASON: RUQ abdominal pain * * * * Physician Interpretation * * * * EXAMINATION / TECHNIQUE: XR ABDOMEN 1V SUPINE PATIENT/TECHNOLOGIST PROVIDED HISTORY: Chronic but intermittent RUQ pain. CLINICAL INFORMATION ( PROVIDED BY ORDERING CLINICIAN) : RUQ abdominal pain COMPARISON: 10/18/2020 RESULT: Scattered gas and stool are seen within normal-caliber large bowel loops. No dilated gas-filled small bowel loops are visualized. Large amount of stool is seen within the colon, most notable within the ascending and transverse colon. Included lungs are clear. Multilevel degenerative changes in the spine. DIVISION OF RADIOLOGY Provider, [facility] - 08/03/2021 * * *Final Report* * * DATE OF EXAM: Aug 03 2021 4:47PM WOX 5289 - XR ABDOMEN 1V SUPINE / PROCEDURE REASON: RUQ abdominal pain * * * * Physician Interpretation * * * * EXAMINATION / TECHNIQUE: XR ABDOMEN 1V SUPINE PATIENT/TECHNOLOGIST PROVIDED HISTORY: Chronic but intermittent RUQ pain. CLINICAL INFORMATION ( PROVIDED BY ORDERING CLINICIAN) : RUQ abdominal pain COMPARISON: 10/18/2020 RESULT: Scattered gas and stool are seen within normal-caliber large bowel loops. No dilated gas-filled small bowel loops are visualized. Large amount of stool is seen within the colon, most notable within the ascending and transverse colon. Included lungs are clear. Multilevel degenerative changes in the spine. IMPRESSION IMPRESSION: Nonobstructive bowel gas pattern. Large colonic stool burden, which may be seen with constipation. Kitchen Aide: LARRY Transcribe Date/Time: Aug 03 2021 4:52P Dictated by : COLE ESTRADA MD This examination was interpreted and the report reviewed and electronically signed by: COLE ESTRADA MD on Aug 03 2021 4:53PM EST [facility] Radiology Study observation (narrative) [facility] XR Abdomen Supine and Uprigh tOrdered By: Ccf Provider on 08-03-2021 [facility] Coronavirus 2019on SARS-CoV-2 (COVID-19) RNA CHRISTA+probe Ql (Unsp spec) UPPER RESPIRATORY TRACT SWAB Normal [facility] Comment on above: Performed By: #### C OVID #### [facility] [address] [place] [address] SARS-CoV-2 (COVID-19) RNA CHRISTA+probe Ql (Unsp spec) Negative for COVID19 (SARS CoV2) by RT-PCR or equivalent method. Normal Negative for COVID19 (SARS CoV2) by RT-PCR or equivalent method. [facility] Comment on above: Result Comment: This test was developed and its performance characteristics determined by [facility]'s [facility]. This test has been authorized by FDA under an Emergency Use Authorization (EUA). This test has been validated in accordance with the FDA's Guidance Document Policy for Diagnostics Testing in Laboratories Certified to Perform High Complexity Testing under CLIA prior to Emergency use Authorization for Coronavirus Disease 2019 during the Public Health Emergency issued on December 29, 2019. Test performed by [facility], [facility], [address] [place] [address], [place] [address]. Performed By: #### C OVID #### [facility] [address] [id number] ED NOTEon 07-01-2021 ED NOTE HNO ID: [id number] Author: Taylor Segovia, Medic Service: ? Author Type: Stock Receiver and Medical Assistant Type: ED Notes Filed: 07/01/2021 11:18 AM Note Text: Swab walked down to lab [facility] ED PROV NOTEon 07-01-2021 ED PROV NOTE HNO ID: [id number] Author: Julissa Zapata PA-C Service: ? Author Type: Physician Lean Consultant Type: ED Provider Notes Filed: 07/01/2021 11:39 AM Note Text: ED Provider Note Patient Name: Dar Rose SERVICE DATE: 07/01/21 History Patient presents with: Viral Syndrome Patient is a 65-year-old male with a history of GERD, diabetes mellitus, kidney disease who presents to the emergency department for viral syndrome. Patient reports that yesterday he developed a a headache across the front part of his head. States the pain is currently 4 out of 10. States he has been taking Tylenol with some relief of symptoms. Denies any provocative factors. Denies any associated visual disturbance, double vision, blurry vision. Denies any associated numbness, tingling, weakness of arms or legs. Denies any neck pain or stiffness. Denies any rhinorrhea, congestion, sore throat, cough, shortness of breath or chest pain. Patient is vaccinated for Covid. Patient's is positive, due to his associated headache, wanted to get tested for Covid. PAST MEDICAL HISTORY Diagnosis Date - Anxiety 11/16/2012 - Arrhythmia - 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 07/06/2018 - BPH (benign prostatic hyperplasia) s/p removal - Chronic insomnia 02/24/2019 - Controlled type 2 diabetes mellitus with stage 3 chronic kidney disease, without long-term current use of insulin (HCC) 02/24/2019 - Decreased libido 01/30/2018 - Degenerative retinal drusen of both eyes 05/30/2015 - ED (erectile dysfunction) 05/20/2021 - Essential hypertension, benign 06/06/2006 - Ex-smoker 05/20/2021 Started age 16, up to 2 PPD quit age 21 - Gastroesophageal reflux disease with esophagitis without hemorrhage 05/20/2021 - Herniated lumbar intervertebral disc - History of depression - Iron deficiency anemia 06/21/2020 - Leg cramps 01/30/2018 - Low testosterone in male 06/21/2020 - Lumbar radiculopathy 02/24/2019 - Malignant melanoma of torso excluding breast (HCC) 02/11/2020 - Mixed hyperlipidemia 03/20/2013 - Nuclear sclerotic cataract of both eyes 05/30/2015 - Peripheral retinal degeneration, paving stone, bilateral 09/09/2017 - Posterior vitreous detachment of left eye 08/31/2016 - Posterior vitreous detachment of right eye 09/09/2017 - Rotator cuff tear, left - Senile nuclear sclerosis 05/17/2017 - Senile nuclear sclerosis, bilateral 09/09/2017 - SVT (supraventricular tachycardia) ([facility]) 05/20/2021 Treated with Ablation: 2013 - Type 2 diabetes mellitus with retinopathy, without long-term current use of insulin ([facility]) 09/09/2017 - Uncontrolled type 2 diabetes mellitus with stage 3 chronic kidney disease, without long-term current use of insulin ([facility]) 01/30/2018 - Vitreous syneresis of both eyes 05/30/2015 PAST SURGICAL HISTORY Procedure Laterality Date - COLONOSCOP W/ OR W/O BRSH SPEC 08/21/2018 repeat 5 years - COLONOSCOPY 2011 - EGD W/O OR W/BRUSH/WASH 08/21/2018 repeat 2 years - HEART SURGERY HX - LAPARO RADICAL PROSTATECTOMY 02/02/2019 for enlarged prostate - PALMAR FASCIECTOMY Left 01/05/2018 A1 sánchez release ring finger - PAST SURGICAL HISTORY OF 1999 rotator cuff left - PAST SURGICAL HISTORY OF 2013 ablation, SVT - TONSILLECTOMY HX FAMILY HISTORY Problem Relation Age of Onset - other (cancer, lung) Mother - Alzheimer's Disease Father - None Brother - None Sister Social History Tobacco Use - Smoking status: Former Smoker - Smokeless tobacco: Never Used - Tobacco comment: quit around 1983 Vaping Use - Vaping Use: Never used Substance and Sexual Activity - Alcohol use: Yes Comment: seldom beer - Drug use: No - Sexual activity: Not Currently Partners: Female ALLERGIES Allergen Reactions - Bee Sting Anaphylaxis - Amitriptyline Intolerance Did not tolerate. - Tramadol Vomiting Review of Systems Constitutional: Negative for chills and fever. HENT: Negative for congestion and rhinorrhea. Eyes: Negative for visual disturbance. Respiratory: Negative for cough and shortness of breath. Cardiovascular: Negative for chest pain and palpitations. Gastrointestinal: Negative for abdominal pain, diarrhea, nausea and vomiting. Genitourinary: Negative for difficulty urinating. Musculoskeletal: Negative for arthralgias, neck pain and neck stiffness. Skin: Negative for color change. Neurological: Positive for headaches. Negative for syncope and weakness. Hematological: Does not bruise/bleed easily. Psychiatric/Behaviora l: The patient is not nervous/anxious. Physical Exam BP 158/89 Pulse 85 Temp (Src) 99 (Oral) Resp 18 SpO2 99% Physical Exam Vitals and nursing note reviewed. Constitutional: General: He is not in acute distress. HENT: Head: Normocephalic and atraumatic. Jaw: There is normal jaw occlusion. Mouth/Throat: Lips: [place]. Eyes: Extraocular Movements: Extraocular movements intact. Pupils: Pupils are equal, round, an (more content not included)... Normal [facility] XR Abdomen GE 3 Views AP and Oblique and Coneon 10-20-2020 IMPRESSION: NO ACUTE ABDOMINAL PATHOLOGY VISUALIZED Kitchen Aide: LARRY Transcribe Date/Time: Oct 20 2020 8:42A Dictated by : YESSICA OVERTON MD This examination was interpreted and the report reviewed and electronically signed by: YESSICA OVERTON MD on Oct 20 2020 8:45AM [facility] DIVISION OF RADIOLOGY * * *Final Report* * * DATE OF EXAM: Oct 18 2020 9:00AM WOX 5358 - XR ABDOMEN 3V KUB W/OBLIQUES / PROCEDURE REASON: Right flank pain * * * * Physician Interpretation * * * * Indication: Right flank pain Comparison: None KUB and oblique x-rays of the abdomen are obtained. There is a non-obstructed bowel gas pattern. There is no hepatomegaly or splenomegaly. No abnormal calcifications are visualized. There are no acute osseous abnormalities. DIVISION OF RADIOLOGY Provider, [facility] - 10/20/2020 * * *Final Report* * * DATE OF EXAM: Oct 18 2020 9:00AM WOX 5358 - XR ABDOMEN 3V KUB W/OBLIQUES / PROCEDURE REASON: Right flank pain * * * * Physician Interpretation * * * * Indication: Right flank pain Comparison: None KUB and oblique x-rays of the abdomen are obtained. There is a non-obstructed bowel gas pattern. There is no hepatomegaly or splenomegaly. No abnormal calcifications are visualized. There are no acute osseous abnormalities. IMPRESSION IMPRESSION: NO ACUTE ABDOMINAL PATHOLOGY VISUALIZED Kitchen Aide: ROBERTS [place]APEL Transcribe Date/Time: Oct 20 2020 8:42A Dictated by : YESSICA OVERTON MD This examination was interpreted and the report reviewed and electronically signed by: YESSICA OVERTON MD on Oct 20 2020 8:45AM EST [facility] XR Abdomen GE 3 Views AP and Oblique and ConeOrdered By: Ccf Provider on 10-20-2020 [facility] XR Abdomen GE 3 Views AP and Oblique and Coneon 10-18-2020 Radiology Study observation (narrative) [facility] Coronavirus 2019on 0 SARS-CoV-2 (COVID-19) RNA CHRISTA+probe Ql (Unsp spec) UPPER RESPIRATORY TRACT SWAB Normal [facility] Comment on above: Performed By: #### C OVID #### [facility] [address] [place], [place] [address] SARS-CoV-2 (COVID-19) RNA CHRISTA+probe Ql (Unsp spec) Negative Normal [facility] Comment on above: Result Comment: This test was developed and its performance characteristics determined by [facility]'s [facility]. This test has been authorized by FDA under an Emergency Use Authorization (EUA). This test has been validated in accordance with the FDA's Guidance Document Policy for Diagnostics Testing in Laboratories Certified to Perform High Complexity Testing under CLIA prior to Emergency use Authorization for Coronavirus Disease 2019 during the Public Health Emergency issued on December 29, 2019. Performed By: #### C OVID #### [facility] [address] [place], [place] [address] ED NOTEon 09-10-2020 ED NOTE HNO ID: [id number] Author: Filiberto (Rn) PATEL Theodore Service: ? Author Type: Registered Nurse Type: ED Notes Filed: 09/10/2020 10:01 AM Note Text: Discharge instructions given to patient, pt aware to self isolate until COVID resulted. Pt left ED in no acute distress, aware to return if s/s worsen. 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 The patient states that for the last 3 weeks he has had persistent headaches, diarrhea, fatigue and muscle aches. He states that his diarrhea and headaches are improving, however they have not gone away. Pain is currently 3/10 in severity, some relief with Tylenol. He states that he spoke to his PCP a few weeks ago but did not meet criteria for testing. He notes that he works for the [employer] office and there have now been a few coworkers with Covid. He states he was instructed to undergo Covid testing. He denies any chest pain shortness of breath, leg swelling, history of DVT/PE. PAST MEDICAL HISTORY Diagnosis Date - Abdominal pain - Arrhythmia - BPH (benign prostatic hyperplasia) - Depression - Diabetes mellitus type II, uncontrolled ([facility]) 08/31/2008 - Elevated PSA 10/04/2018 01/17/18: PSA 4.63 10/02/18 PSA 4.49 - Herniated lumbar intervertebral disc - Hypertension - Rotator cuff tear, left - RUQ pain - Uncontrolled type 2 diabetes mellitus with stage 3 chronic kidney disease, without long-term current use of insulin ([facility]) 01/30/2018 PAST SURGICAL HISTORY Procedure Laterality Date - COLONOSCOP W/ OR W/O BRSH SPEC 08/21/2018 repeat 5 years - COLONOSCOPY 2011 - EGD W/O OR W/BRUSH/WASH 08/21/2018 repeat 2 years - HEART SURGERY HX - LAPARO RADICAL PROSTATECTOMY 02/02/2019 - PALMAR FASCIECTOMY Left 01/05/2018 A1 sánchez release ring finger - PAST SURGICAL HISTORY OF 1999 rotator cuff left - PAST SURGICAL HISTORY OF 2013 ablation, SVT - TONSILLECTOMY HX FAMILY HISTORY Problem Relation Age of Onset - other (cancer, lung) Mother - Alzheimer's Disease Father - None Brother - None Sister Social History Tobacco Use - Smoking status: Former Smoker - Smokeless tobacco: Never Used - Tobacco comment: quit around 1983 Substance and Sexual Activity - Alcohol use: Yes Comment: seldom beer - Drug use: No - Sexual activity: Not Currently Partners: Female ALLERGIES Allergen Reactions - Amitriptyline Intolerance Did not tolerate. - Bee Sting Anaphylaxis - Tramadol Vomiting Review of Systems Constitutional: Positive for chills and fatigue. Negative for fever. HENT: Negative for sore throat. Eyes: Negative for visual disturbance. Respiratory: Negative for cough and shortness of breath. Cardiovascular: Negative for chest pain and palpitations. Gastrointestinal: Positive for diarrhea. Negative for abdominal pain, nausea and vomiting. Genitourinary: Negative for dysuria and frequency. Musculoskeletal: Negative for neck pain and neck stiffness. Skin: Negative for rash and wound. Neurological: Positive for headaches. Negative for weakness and numbness. Physical Exam BP 159/97 Pulse 94 Temp (Src) 98.3 (Oral) Resp 20 Ht 5' 10 (1.78m) Wt 200 lb (90.7kg) SpO2 97% BMI 28.70 kg/(m2). O2 Therapy: Room Air Physical Exam Vitals signs and nursing note reviewed. Constitutional: General: He is not in acute distress. Appearance: He is not diaphoretic. Neck: Musculoskeletal: Neck supple. Comments: Full range of motion, negative Kernig and Brudzinski Cardiovascular: Rate and Rhythm: Normal rate and regular rhythm. Heart sounds: Normal heart sounds. Pulmonary: Effort: Pulmonary effort is normal. No respiratory distress. Breath sounds: Normal breath sounds. No wheezing or rales. Abdominal: General: Bowel sounds are normal. There is no distension. Palpations: Abdomen is soft. Tenderness: There is no abdominal tenderness. There is no guarding or rebound. Musculoskeletal: Comments: No lower extremity edema, no calf redness or tenderness Skin: General: Skin is warm and dry. Neurological: Mental Status: He is alert and oriented to person, place, and time. Psychiatric: Behavior: Behavior normal. Diagnostic Testing ED Labs Ordered and Reviewed - No data to display Procedures ED Course / Clinical Impression Clinical Impressions as of Sep 10 939 Suspected COVID-19 virus infection Hypertension, unspecified type Diarrhea, unspecified type Nonintractable headache, unspecified chronicity pattern, unspecified headache type COVID-19 test performed per [facility] policy for suspected COVID community exposure. MDM / Disposition / Plan MDM Chart review significant for outpatient family medicine visit for gastroenteritis on August 12, 2020 Patient is a 64-year-old male who presents ED for concern of Covid. Upon eval (more content not included)... Normal [facility] Basic Panelon 02-03-2019 Creatinine [Mass/Vol] 1.42 mg/dL High 0.67-1.17 [facility] Comment on above: Performed By: #### P 8 #### [facility] [address] [place], [place] [address] Anion gap [Moles/Vol] 8 mmol/L Normal 8-16 [facility] Comment on above: Performed By: #### P 8 #### [facility] [address] [place], [place] [address] Calcium [Mass/Vol] 8.0 mg/dL Low 8.5-10.1 [facility] Comment on above: Performed By: #### P 8 #### [facility] [address] [place], [place] [address] CO2 [Moles/Vol] 27 mmol/L Normal 21-32 [facility] Comment on above: Performed By: #### P 8 #### [facility] [address] [place], [place] [address] Glucose [Mass/Vol] 112 mg/dL High 70-99 [facility] Comment on above: Performed By: #### P 8 #### [facility] [address] [place], [place] [address] Urea nitrogen [Mass/Vol] 20 mg/dL High 7-18 [facility] Comment on above: Performed By: #### P 8 #### [facility] [address] [place], [place] [address] Chloride [Moles/Vol] 106 mmol/L Normal 98-107 [facility] Comment on above: Performed By: #### P 8 #### [facility] [address] [place] [address] Potassium [Moles/Vol] 4.3 mmol/L Normal 3.5-5.1 [facility] Comment on above: Performed By: #### P 8 #### [facility] [address] [place], [place] [address] Sodium [Moles/Vol] 137 mmol/L Normal 136-145 [facility] Comment on above: Performed By: #### P 8 #### [facility] [address] [place] [address] Glucose Meteron 02-03-2019 Glucose [Mass/Vol] 94 mg/dL Normal 70-99 [facility] Comment on above: Result Comment: PATEL SWEENEY Performed By: #### G LMET #### [facility] [address] [place] [address] Hemogramon 02-03-2019 Erythrocyte distribution width (RBC) [Ratio] 13.6 % Normal 11.6-14.4 [facility] Comment on above: Performed By: #### C BC1 #### [facility] [address] [place] [address] Hematocrit (Bld) [Volume fraction] 25.6 % Low 40.1-51.0 [facility] Comment on above: Performed By: #### C BC1 #### [facility] [address] [place] [address] Hemoglobin (Bld) [Mass/Vol] 7.8 g/dL Low 13.7-17.5 [facility] Comment on above: Performed By: #### C BC1 #### [facility] [address] [place] [address] MCH (RBC) [Entitic mass] 24.9 pg Low 25.7-32.2 [facility] Comment on above: Performed By: #### C BC1 #### [facility] [address] [place] [address] MCHC (RBC) [Mass/Vol] 30.5 % Low 32.3-36.5 [facility] Comment on above: Performed By: #### C BC1 #### [facility] [address] [place], [place] [address] MCV (RBC) [Entitic vol] 81.8 fL Low 83.2-95.6 [facility] Comment on above: Performed By: #### C BC1 #### [facility] [address] [place], [place] [address] Platelet mean volume (Bld) [Entitic vol] 10.1 fL Normal 8.7-12.0 [facility] Comment on above: Performed By: #### C BC1 #### [facility] [address] [place], [place] [address] Platelets (Bld) [#/Vol] 296 thou/cmm Normal 141-365 [facility] Comment on above: Performed By: #### C BC1 #### [facility] [address] [place], [place] [address] RBC (Bld) [#/Vol] 3.13 mil/cmm Low 4.63-6.08 [facility] Comment on above: Performed By: #### C BC1 #### [facility] [address] [place] [address] RDW SD 40.2 fl Normal 36.1-45.8 [facility] Comment on above: Performed By: #### C BC1 #### [facility] [address] [place], [place] [address] WBC (Bld) [#/Vol] 9.88 thou/cmm High 4.23-9.07 [facility] Comment on above: Performed By: #### C BC1 #### [facility] [address] [place], [place] [address] MDRD GFRon 02-03-2019 GFR/1.73 sq M predicted among non-blacks MDRD (S/P/Bld) [Vol rate/Area] 49.98 mL/min/{1.73_m2} Normal >60mL/min/1.73m 2 [facility] Comment on above: Result Comment: If t he patient is , multiply the result by 1.210. Performed By: #### G FR #### [place] [address] ABO/Rh Confirmationon 2018 ABO group Nom (Bld) A Normal [facility] Comment on above: Performed By: #### A PHILLIP #### [place] [address] RH Type Positive Normal [facility] Comment on above: Performed By: #### A PHILLIP #### [place] [address] Surgical Tissue Examon 02-02 Surgical Tissue Exam Test performed at [place] [address] NAME: DAR ROSE REQUESTING: SAMIRA LAGOS JR, M.D. FINAL DIAGNOSIS: PROSTATE, PROSTATECTOMY - BENIGN PROSTATIC TISSUE. OPERATIVE PROCEDURE: Robotic prostatectomy CLINICAL INFORMATION: BPH [N40.0] GROSS DESCRIPTION: Prostate Received in formalin labeled prostate is specimen consisting of greater than five nodular masses of tissue with an aggregate weight of 55 gm. The largest tissue segment measures 6.0 x 6.0 x 3.5 cm and the smallest measures 1.2 x 1.0 x 0.4 cm. These appear to be from the periurethral portion of the prostate gland and a smooth surface consistent with prostatic urethra. The masses are formed of nodules of rubbery firm pink tissue which on section measures in cross diameter 0.3 to 1.5 cm. Online Content Coordinator sections are submitted in formalin in six cassettes. ARH:felisa KELLEY M.D.,PATHOLOGIST (Electronic signature on file) Signed out: 02/06/2019 12:48 PRINTED: 02/06/2019 Page 1 of 1 Normal [facility] Comment on above: Performed By: #### S URG #### [place] [address] Basic Panelon 01-22-2019 Creatinine [Mass/Vol] 1.52 mg/dL High 0.67-1.17 [facility] Comment on above: Performed By: #### P 8 #### [place] [address] Anion gap [Moles/Vol] 13 mmol/L Normal 8-16 [facility] Comment on above: Performed By: #### P 8 #### [facility] [address] [place], [place] [address] Calcium [Mass/Vol] 9.3 mg/dL Normal 8.5-10.1 [facility] Comment on above: Performed By: #### P 8 #### [facility] [address] [place], [place] [address] CO2 [Moles/Vol] 26 mmol/L Normal 21-32 [facility] Comment on above: Performed By: #### P 8 #### [facility] [address] [place], [place] [address] Glucose [Mass/Vol] 115 mg/dL High 70-99 [facility] Comment on above: Performed By: #### P 8 #### [facility] [address] [place], [place] [address] Urea nitrogen [Mass/Vol] 20 mg/dL High 7-18 [facility] Comment on above: Performed By: #### P 8 #### [facility] [address] [place], [place] [address] Chloride [Moles/Vol] 103 mmol/L Normal 98-107 [facility] Comment on above: Performed By: #### P 8 #### [facility] [address] [place], [place] [address] Potassium [Moles/Vol] 4.6 mmol/L Normal 3.5-5.1 [facility] Comment on above: Performed By: #### P 8 #### [facility] [address] [place], [place] [address] Sodium [Moles/Vol] 137 mmol/L Normal 136-145 [facility] Comment on above: Performed By: #### P 8 #### [facility] [address] [place], [place] [address] Hemogramon 01-22-2019 Erythrocyte distribution width (RBC) [Ratio] 12.9 % Normal 11.6-14.4 [facility] Comment on above: Performed By: #### C BC1 #### [facility] [address] [place], [place] [address] Hematocrit (Bld) [Volume fraction] 30.2 % Low 40.1-51.0 [facility] Comment on above: Performed By: #### C BC1 #### [facility] 1 [place] [address] Hemoglobin (Bld) [Mass/Vol] 9.4 g/dL Low 13.7-17.5 [facility] Comment on above: Performed By: #### C BC1 #### [facility] [address] [place] [address] MCH (RBC) [Entitic mass] 26.3 pg Normal 25.7-32.2 [facility] Comment on above: Performed By: #### C BC1 #### [facility] [address] [place] [address] MCHC (RBC) [Mass/Vol] 31.1 % Low 32.3-36.5 [facility] Comment on above: Performed By: #### C BC1 #### [facility] [address] [place] [address] MCV (RBC) [Entitic vol] 84.4 fL Normal 83.2-95.6 [facility] Comment on above: Performed By: #### C BC1 #### [facility] 1 [place] [address] Platelet mean volume (Bld) [Entitic vol] 10.1 fL Normal 8.7-12.0 [facility] Comment on above: Performed By: #### C BC1 #### [facility] [address] [place] [address] Platelets (Bld) [#/Vol] 395 thou/cmm High 141-365 [facility] Comment on above: Performed By: #### C BC1 #### [facility] [address] [place] [address] RBC (Bld) [#/Vol] 3.58 mil/cmm Low 4.63-6.08 [facility] Comment on above: Performed By: #### C BC1 #### [facility] [address] [place] [address] RDW SD 39.5 fl Normal 36.1-45.8 [facility] Comment on above: Performed By: #### C BC1 #### [facility] [address] [place] [address] WBC (Bld) [#/Vol] 9.81 thou/cmm High 4.23-9.07 [facility] Comment on above: Performed By: #### C BC1 #### [facility] [address] [place] [address] MDRD GFRon 01-22-2019 GFR/1.73 sq M predicted among non-blacks MDRD (S/P/Bld) [Vol rate/Area] 46.21 mL/min/{1.73_m2} Normal >60mL/min/1.73m 2 [facility] Comment on above: Result Comment: If t he patient is , multiply the result by 1.210. Performed By: #### G FR #### [place] [address] Type and Screenon 01-22-2019 ABO group Nom (Bld) A Normal [facility] Comment on above: Performed By: #### T &S #### [place] [address] Comment PAT specimen Normal [facility] Comment on above: Performed By: #### T &S #### [place] [address] RH Type Positive Normal [facility] Comment on above: Performed By: #### T &S #### [place] [address] EGD - THERAPEUTIC, EUS, OR T UBE INTERVENTIONSon 08-21-2018 [facility] Vital Signs Date Time Vital Sign Value Performing Clinician Facility 07-29-2025 14:40-0400 Body height 177.[address] Cruz Prado MD Work Phone: [facility] 07-29-2025 14:40-0400 Body mass index (BMI) [Ratio] 27 kg/m2 Dr. Cruz Prado MD Work Phone: [facility] 07-29-2025 14:40-0400 Body weight 85.[address] Cruz Prado MD Work Phone: 2(435)211-764560 [place] [address] 07-29-2025 14:40-0400 Diastolic blood pressure 78 mm[Hg] Dr. Cruz Prado MD Work Phone: 3(631)103-575160 [place] [address] 07-29-2025 14:40-0400 Heart rate 66 /min Dr. Cruz Prado MD Work Phone: 9(380)116-930660 [place] [address] 07-29-2025 14:40-0400 SaO2% (BldA) [Mass fraction] 97 % Dr. Cruz Prado MD Work Phone: 5(675)941-365660 [place] [address] 07-29-2025 14:40-0400 Systolic blood pressure 130 mm[Hg] Dr. Cruz Prado MD Work Phone: 2(073)790-393760 [place] [address] 05-28-2025 09:07-0400 Body height 177.[address] Cruz Prado MD Work Phone: 1(467)210-645560 [place] [address] 05-28-2025 09:07-0400 Body mass index (BMI) [Ratio] 26.6 kg/m2 Dr. Cruz Prado MD Work Phone: 2(022)015-290560 [place] [address] 05-28-2025 09:07-0400 Body temperature 98.1 [degF] Dr. Cruz Prado MD Work Phone: 1(983)529-771160 [place] [address] 05-28-2025 09:07-0400 Body weight 84.[address] Cruz Prado MD Work Phone: 5(632)317-940560 [place] [address] 05-28-2025 09:07-0400 Diastolic blood pressure 75 mm[Hg] Dr. Cruz Prado MD Work Phone: 3(847)145-997160 [place] [address] 05-28-2025 09:07-0400 Heart rate 69 /min Dr. Cruz Prado MD Work Phone: 5(961)090-443160 [place] [address] 05-28-2025 09:07-0400 Respiratory rate 16 /min Dr. Cruz Prado MD Work Phone: 3(953)137-739460 [place] [address] 05-28-2025 09:07-0400 SaO2% (BldA) [Mass fraction] 95 % Dr. Cruz Prado MD Work Phone: 8(825)677-162513 [address] [place] [address] 05-28-2025 09:07-0400 Systolic blood pressure 118 mm[Hg] Dr. Cruz Prado MD Work Phone: 5(683)983-376760 [place] [address] 04-29-2025 09:03-0400 Body height 177.[address] Cruz Prado MD Work Phone: 9(471)306-184760 [place] [address] 04-29-2025 09:03-0400 Body mass index (BMI) [Ratio] 26.5 kg/m2 Dr. Cruz Prado MD Work Phone: 2(764)194-481360 [place] [address] 04-29-2025 09:03-0400 Body weight 83.[address] Cruz Prado MD Work Phone: 5(363)630-822560 [place] [address] 04-29-2025 09:03-0400 Diastolic blood pressure 81 mm[Hg] Dr. Cruz Prado MD Work Phone: 6(971)059-562013 [address] [address] 04-29-2025 09:03-0400 Heart rate 63 /min Dr. Cruz Prado MD Work Phone: 3(000)035-810860 [place] [address] 04-29-2025 09:03-0400 SaO2% (BldA) [Mass fraction] 98 % Dr. Cruz Prado MD Work Phone: 1(384)682-817913 [place] [address] 04-29-2025 09:03-0400 Systolic blood pressure 145 mm[Hg] Dr. Cruz Prado MD Work Phone: [facility] 04-01-2025 08:14-0400 Body mass index (BMI) [Ratio] 27.81 kg/m2 Loren Vallecillo APRN.SOCIAL MEDIA MANAGER Work Phone: [facility] 04-01-2025 08:14-0400 Body temperature 97.2 [degF] Loren Vallecillo APRN.SOCIAL MEDIA MANAGER Work Phone: [facility] 04-01-2025 08:14-0400 Body weight 84.2 kg Loren Vallecillo APRN.SOCIAL MEDIA MANAGER Work Phone: [facility] 04-01-2025 08:14-0400 Diastolic blood pressure 78 mm[Hg] Loren Vallecillo APRN.SOCIAL MEDIA MANAGER Work Phone: [facility] 04-01-2025 08:14-0400 Heart rate 60 /min Loren Vallecillo APRN.SOCIAL MEDIA MANAGER Work Phone: [facility] 04-01-2025 08:14-0400 Respiratory rate 16 /min Loren Vallecillo APRN.SOCIAL MEDIA MANAGER Work Phone: [facility] 04-01-2025 08:14-0400 SaO2% (BldA) [Mass fraction] 98 % Loren Vallecillo APRN.SOCIAL MEDIA MANAGER Work Phone: [facility] 04-01-2025 08:14-0400 Systolic blood pressure 122 mm[Hg] Loren Vallecillo APRN.SOCIAL MEDIA MANAGER Work Phone: [facility] 02-18-2025 08:47-0400 Body mass index (BMI) [Ratio] 27.48 kg/m2 Asim Denis APRN.SOCIAL MEDIA MANAGER Work Phone: [facility] 02-18-2025 08:47-0400 Body temperature 96.91 [degF] Asim Denis APRN.SOCIAL MEDIA MANAGER Work Phone: [facility] 02-18-2025 08:47-0400 Body weight 83.2 kg Asim Dneis APRN.SOCIAL MEDIA MANAGER Work Phone: [facility] 02-18-2025 08:47-0400 Diastolic blood pressure 60 mm[Hg] Asim Denis APRN.SOCIAL MEDIA MANAGER Work Phone: [facility] 02-18-2025 08:47-0400 Heart rate 78 /min Asim Denis APRN.SOCIAL MEDIA MANAGER Work Phone: [facility] 02-18-2025 08:47-0400 Respiratory rate 16 /min Asim Denis APRN.SOCIAL MEDIA MANAGER Work Phone: [facility] 02-18-2025 08:47-0400 SaO2% (BldA) [Mass fraction] 97 % Asim Denis APRN.SOCIAL MEDIA MANAGER Work Phone: [facility] 02-18-2025 08:47-0400 Systolic blood pressure 102 mm[Hg] Asim Denis APRN.SOCIAL MEDIA MANAGER Work Phone: [facility] 01-28-2025 09:45-0400 Body mass index (BMI) [Ratio] 26.2 kg/m2 Dr. Cruz Prado MD Work Phone: [facility] 01-28-2025 09:45-0400 Body weight 82.[address] Cruz Prado MD Work Phone: [facility] 01-28-2025 09:45-0400 Diastolic blood pressure 76 mm[Hg] Dr. Cruz Prado MD Work Phone: [facility] 01-28-2025 09:45-0400 Heart rate 55 /min Dr. Cruz Prado MD Work Phone: [facility] 01-28-2025 09:45-0400 SaO2% (BldA) [Mass fraction] 98 % Dr. Cruz Prado MD Work Phone: [facility] 01-28-2025 09:45-0400 Systolic blood pressure 132 mm[Hg] Dr. Cruz Prado MD Work Phone: [facility] 01-16-2025 07:57-0400 Body height 174 cm Cruz Prado MD Work Phone: [facility] 01-16-2025 07:57-0400 Body mass index (BMI) [Ratio] 26.82 kg/m2 Cruz Prado MD Work Phone: [facility] 01-16-2025 07:57-0400 Body weight 81.19 kg Cruz Prado MD Work Phone: [facility] 01-16-2025 07:57-0400 Diastolic blood pressure 70 mm[Hg] Cruz Prado MD Work Phone: [facility] 01-16-2025 07:57-0400 Heart rate 72 /min Cruz Prado MD Work Phone: [facility] 01-16-2025 07:57-0400 Respiratory rate 16 /min Cruz Prado MD Work Phone: [facility] 01-16-2025 07:57-0400 Systolic blood pressure 118 mm[Hg] Cruz Prado MD Work Phone: [facility] 12-12-2024 08:15-0500 Body mass index (BMI) [Ratio] 27.32 kg/m2 Jeffery Clutter PA-C Work Phone: [facility] 12-12-2024 08:15-0500 Body temperature 97 [degF] Jeffery Clutter PA-C Work Phone: [facility] 12-12-2024 08:15-0500 Body weight 83.3 kg Jeffery Clutter PA-C Work Phone: [facility] 12-12-2024 08:15-0500 Diastolic blood pressure 75 mm[Hg] Jeffery Clutter PA-C Work Phone: [facility] 12-12-2024 08:15-0500 Heart rate 69 /min Jeffery Clutter PA-C Work Phone: [facility] 12-12-2024 08:15-0500 Respiratory rate 18 /min Jeffery Clutter PA-C Work Phone: [facility] 12-12-2024 08:15-0500 SaO2% (BldA) [Mass fraction] 99 % Jeffery Clutter PA-C Work Phone: [facility] 12-12-2024 08:15-0500 Systolic blood pressure 148 mm[Hg] Jeffery Clutter PA-C Work Phone: [facility] 07-12-2024 10:24-0400 Diastolic blood pressure 80 mm[Hg] Anette Arreola PA-C Work Phone: [facility] Comment on above: average with machine 07-12-2024 10:24-0400 Heart rate 75 /min Anette Arreola PA-C Work Phone: [facility] 07-12-2024 10:24-0400 Systolic blood pressure 139 mm[Hg] Anette Arreola PA-C Work Phone: [facility] Comment on above: average with machine 07-12-2024 09:54-0400 Body mass index (BMI) [Ratio] 29.6 kg/m2 Anette Arreola PA-C Work Phone: [facility] 07-12-2024 09:54-0400 Body temperature 97.7 [degF] Anette Arreola PA-C Work Phone: [facility] 07-12-2024 09:54-0400 Body weight 90.27 kg Anette Arreola PA-C Work Phone: [facility] 07-12-2024 09:54-0400 Respiratory rate 16 /min Anette Arreola PA-C Work Phone: [facility] 07-12-2024 09:54-0400 SaO2% (BldA) [Mass fraction] 98 % Aentte Arreola PA-C Work Phone: [facility] 05-02-2024 09:12-0400 Body mass index (BMI) [Ratio] 29.6 kg/m2 Cruz Prado MD Work Phone: [facility] 05-02-2024 09:12-0400 Body temperature 97.3 [degF] Cruz Prado MD Work Phone: [facility] 05-02-2024 09:12-0400 Body weight 90.27 kg Cruz Prado MD Work Phone: [facility] 05-02-2024 09:12-0400 Diastolic blood pressure 70 mm[Hg] Cruz Prado MD Work Phone: [facility] 05-02-2024 09:12-0400 Heart rate 64 /min Cruz Prado MD Work Phone: [facility] 05-02-2024 09:12-0400 Respiratory rate 16 /min Cruz Prado MD Work Phone: [facility] 05-02-2024 09:12-0400 Systolic blood pressure 130 mm[Hg] Cruz Prado MD Work Phone: [facility] 04-12-2024 09:56-0400 Body mass index (BMI) [Ratio] 29.51 kg/m2 Francisco Suh MD Work Phone: [facility] 04-12-2024 09:56-0400 Body temperature 97.11 [degF] Francisco Suh MD Work Phone: [facility] 04-12-2024 09:56-0400 Body weight 90 kg Francisco Suh MD Work Phone: [facility] 04-12-2024 09:56-0400 Diastolic blood pressure 80 mm[Hg] Francisco Suh MD Work Phone: [facility] 04-12-2024 09:56-0400 Heart rate 72 /min Francisco Suh MD Work Phone: [facility] 04-12-2024 09:56-0400 Respiratory rate 18 /min Francisco Suh MD Work Phone: [facility] 04-12-2024 09:56-0400 SaO2% (BldA) [Mass fraction] 97 % Francicso Suh MD Work Phone: [facility] 04-12-2024 09:56-0400 Systolic blood pressure 158 mm[Hg] Francisco Suh MD Work Phone: [facility] 04-04-2024 10:44-0400 Body mass index (BMI) [Ratio] 30.07 kg/m2 Tanya Vega LIFE SCIENCE TECHNICAL OFFICER.SOCIAL MEDIA MANAGER Work Phone: [facility] 04-04-2024 10:44-0400 Body temperature 97.59 [degF] Tanya Vega LIFE SCIENCE TECHNICAL OFFICER.SOCIAL MEDIA MANAGER Work Phone: [facility] 04-04-2024 10:44-0400 Body weight 91.7 kg Tanya Vega LIFE SCIENCE TECHNICAL OFFICER.SOCIAL MEDIA MANAGER Work Phone: [facility] 06-05-2024 10:44-0400 Diastolic blood pressure 64 mm[Hg] Tanya Vega LIFE SCIENCE TECHNICAL OFFICER.SOCIAL MEDIA MANAGER Work Phone: [facility] 04-04-2024 10:44-0400 Heart rate 90 /min Tanya Vega LIFE SCIENCE TECHNICAL OFFICER.SOCIAL MEDIA MANAGER Work Phone: [facility] 04-04-2024 10:44-0400 Respiratory rate 21 /min Tanya Vega LIFE SCIENCE TECHNICAL OFFICER.SOCIAL MEDIA MANAGER Work Phone: [facility] 04-04-2024 10:44-0400 SaO2% (BldA) [Mass fraction] 98 % Tanya Vega LIFE SCIENCE TECHNICAL OFFICER.SOCIAL MEDIA MANAGER Work Phone: [facility] 04-04-2024 10:44-0400 Systolic blood pressure 120 mm[Hg] Tanya Vega LIFE SCIENCE TECHNICAL OFFICER.SOCIAL MEDIA MANAGER Work Phone: [facility] 04-02-2024 11:13-0400 Body mass index (BMI) [Ratio] 29.84 kg/m2 Francisco Suh MD Work Phone: [facility] 04-02-2024 11:13-0400 Body temperature 98.1 [degF] Francisco Suh MD Work Phone: [facility] 04-02-2024 11:13-0400 Body weight 91 kg Francisco Suh MD Work Phone: [facility] 04-02-2024 11:13-0400 Diastolic blood pressure 68 mm[Hg] Francisco Suh MD Work Phone: [facility] 04-02-2024 11:13-0400 Heart rate 99 /min Francisco Suh MD Work Phone: [facility] 04-02-2024 11:13-0400 Respiratory rate 18 /min Francisco Suh MD Work Phone: [facility] 04-02-2024 11:13-0400 SaO2% (BldA) [Mass fraction] 97 % Francisco Suh MD Work Phone: [facility] 04-02-2024 11:13-0400 Systolic blood pressure 134 mm[Hg] Francisco Suh MD Work Phone: [facility] 01-31-2024 15:20-0400 Body weight 91.17 kg Lorie Moses LIFE SCIENCE TECHNICAL OFFICER.SOCIAL MEDIA MANAGER Work Phone: [facility] 01-31-2024 15:20-0400 Diastolic blood pressure 80 mm[Hg] Lorie Moses LIFE SCIENCE TECHNICAL OFFICER.SOCIAL MEDIA MANAGER Work Phone: [facility] 01-31-2024 15:20-0400 Heart rate 74 /min Lorie Moses LIFE SCIENCE TECHNICAL OFFICER.SOCIAL MEDIA MANAGER Work Phone: [facility] 01-31-2024 15:20-0400 Respiratory rate 16 /min Lorie Moses LIFE SCIENCE TECHNICAL OFFICER.SOCIAL MEDIA MANAGER Work Phone: [facility] 01-31-2024 15:20-0400 Systolic blood pressure 142 mm[Hg] Lorie Moses LIFE SCIENCE TECHNICAL OFFICER.SOCIAL MEDIA MANAGER Work Phone: [facility] 09-27-2023 09:52-0500 Body temperature 96.01 [degF] Alexandria Podlogar LIFE SCIENCE TECHNICAL OFFICER.SOCIAL MEDIA MANAGER Work Phone: [facility] 09-27-2023 09:52-0500 Body weight 93.44 kg Alexandria Podlogar LIFE SCIENCE TECHNICAL OFFICER.SOCIAL MEDIA MANAGER Work Phone: [facility] 09-27-2023 09:52-0500 Diastolic blood pressure 82 mm[Hg] Alexandria Podlogar LIFE SCIENCE TECHNICAL OFFICER.SOCIAL MEDIA MANAGER Work Phone: [facility] 09-27-2023 09:52-0500 Heart rate 68 /min Alexandria Podlogar LIFE SCIENCE TECHNICAL OFFICER.SOCIAL MEDIA MANAGER Work Phone: [facility] 09-27-2023 09:52-0500 Respiratory rate 18 /min Alexandria Podlogar LIFE SCIENCE TECHNICAL OFFICER.SOCIAL MEDIA MANAGER Work Phone: [facility] 09-27-2023 09:52-0500 SaO2% (BldA) [Mass fraction] 96 % Alexandria Podlogar LIFE SCIENCE TECHNICAL OFFICER.SOCIAL MEDIA MANAGER Work Phone: [facility] 09-27-2023 09:52-0500 Systolic blood pressure 150 mm[Hg] Alexandria Contreras LIFE SCIENCE TECHNICAL OFFICER.SOCIAL MEDIA MANAGER Work Phone: [facility] 08-19-2023 10:53-0400 Body temperature 97.2 [degF] Gabby Stark LIFE SCIENCE TECHNICAL OFFICER.SOCIAL MEDIA MANAGER Work Phone: [facility] 08-19-2023 10:53-0400 Body weight 93.62 kg Gabby Lincoln LIFE SCIENCE TECHNICAL OFFICER.SOCIAL MEDIA MANAGER Work Phone: [facility] 08-19-2023 10:53-0400 Diastolic blood pressure 78 mm[Hg] Gabby Lincoln LIFE SCIENCE TECHNICAL OFFICER.SOCIAL MEDIA MANAGER Work Phone: [facility] 08-19-2023 10:53-0400 Heart rate 77 /min Gabby Lincoln LIFE SCIENCE TECHNICAL OFFICER.SOCIAL MEDIA MANAGER Work Phone: [facility] 08-19-2023 10:53-0400 Respiratory rate 16 /min Gabby Lincoln LIFE SCIENCE TECHNICAL OFFICER.SOCIAL MEDIA MANAGER Work Phone: [facility] 08-19-2023 10:53-0400 SaO2% (BldA) [Mass fraction] 96 % Gabby Lincoln LIFE SCIENCE TECHNICAL OFFICER.SOCIAL MEDIA MANAGER Work Phone: [facility] 08-19-2023 10:53-0400 Systolic blood pressure 138 mm[Hg] Gabby Lincoln LIFE SCIENCE TECHNICAL OFFICER.SOCIAL MEDIA MANAGER Work Phone: [facility] 08-05-2023 15:47-0400 Body temperature 99 [degF] Asim Denis LIFE SCIENCE TECHNICAL OFFICER.SOCIAL MEDIA MANAGER Work Phone: [facility] 08-05-2023 15:47-0400 Body weight 93.26 kg Asim Denis LIFE SCIENCE TECHNICAL OFFICER.SOCIAL MEDIA MANAGER Work Phone: [facility] 08-05-2023 15:47-0400 Diastolic blood pressure 70 mm[Hg] Asim Denis LIFE SCIENCE TECHNICAL OFFICER.SOCIAL MEDIA MANAGER Work Phone: [facility] 08-05-2023 15:47-0400 Heart rate 86 /min Asim Denis LIFE SCIENCE TECHNICAL OFFICER.SOCIAL MEDIA MANAGER Work Phone: [facility] 08-05-2023 15:47-0400 Respiratory rate 18 /min Asim Denis APRN.SOCIAL MEDIA MANAGER Work Phone: [facility] 08-05-2023 15:47-0400 SaO2% (BldA) [Mass fraction] 97 % Asim Denis APRN.SOCIAL MEDIA MANAGER Work Phone: [facility] 08-05-2023 15:47-0400 Systolic blood pressure 125 mm[Hg] Asim Denis APRN.SOCIAL MEDIA MANAGER Work Phone: [facility] 08-04-2023 07:53-0400 Body temperature 97.2 [degF] Anette Arreola PA-C Work Phone: [facility] 08-04-2023 07:53-0400 Body weight 91.17 kg Anette Arreola PA-C Work Phone: [facility] 08-04-2023 07:53-0400 Diastolic blood pressure 70 mm[Hg] Anette Arreola PA-C Work Phone: [facility] 08-04-2023 07:53-0400 Heart rate 80 /min Anette Arreola PA-C Work Phone: [facility] 08-04-2023 07:53-0400 Respiratory rate 16 /min Anette Arreola PA-C Work Phone: [facility] 08-04-2023 07:53-0400 Systolic blood pressure 122 mm[Hg] Anette Arreola PA-C Work Phone: [facility] 06-20-2023 12:34-0400 Diastolic blood pressure 82 mm[Hg] [facility] 06-20-2023 12:34-0400 Heart rate 81 /min [facility] 06-20-2023 12:34-0400 Respiratory rate 18 /min [facility] 06-20-2023 12:34-0400 SaO2% (BldA) [Mass fraction] 98 % [facility] 06-20-2023 12:34-0400 Systolic blood pressure 144 mm[Hg] [facility] 06-20-2023 11:41-0400 Body height 178 cm [facility] 06-20-2023 11:41-0400 Body mass index (BMI) [Ratio] 29.3 kg/m2 [facility] 06-20-2023 11:41-0400 Body temperature 98.6 [degF] [facility] 06-20-2023 11:41-0400 Body weight 92.9 kg [facility] 06-02-2023 19:28-0400 Diastolic blood pressure 76 mm[Hg] [facility] 06-02-2023 19:28-0400 Heart rate 76 /min [facility] 06-02-2023 19:28-0400 SaO2% (BldA) [Mass fraction] 96 % [facility] 06-02-2023 19:28-0400 Systolic blood pressure 117 mm[Hg] [facility] 06-02-2023 18:08-0400 Respiratory rate 16 /min [facility] 06-02-2023 15:08-0400 Body height 177.8 cm [facility] 06-02-2023 15:08-0400 Body mass index (BMI) [Ratio] 28.3 kg/m2 [facility] 06-02-2023 15:08-0400 Body temperature 97.5 [degF] [facility] 06-02-2023 15:08-0400 Body weight 89.4 kg [facility] 05-10-2023 19:53-0400 Heart rate 81 /min [facility] 05-10-2023 19:53-0400 Respiratory rate 18 /min [facility] 05-10-2023 19:53-0400 SaO2% (BldA) [Mass fraction] 98 % [facility] 05-10-2023 17:09-0400 Body height 177.8 cm [facility] 05-10-2023 17:09-0400 Body mass index (BMI) [Ratio] 27.9 kg/m2 [facility] 05-10-2023 17:09-0400 Body temperature 97.4 [degF] [facility] 05-10-2023 17:09-0400 Body weight 88.45 kg [facility] 05-10-2023 17:09-0400 Diastolic blood pressure 69 mm[Hg] [facility] 05-10-2023 17:09-0400 Systolic blood pressure 152 mm[Hg] [facility] 01-08-2023 12:03-0500 Body temperature 97.59 [degF] Krislyn Aberegg PA Work Phone: [facility] 01-08-2023 12:03-0500 Body weight 89.63 kg Krislyn Aberegg PA Work Phone: [facility] 01-08-2023 12:03-0500 Diastolic blood pressure 64 mm[Hg] Krislyn Aberegg PA Work Phone: [facility] 01-08-2023 12:03-0500 Heart rate 85 /min Krislyn Aberegg PA Work Phone: [facility] 01-08-2023 12:03-0500 Respiratory rate 21 /min Krislyn Aberegg PA Work Phone: [facility] 01-08-2023 12:03-0500 SaO2% (BldA) [Mass fraction] 98 % Krislyn Aberegg PA Work Phone: [facility] 01-08-2023 12:03-0500 Systolic blood pressure 118 mm[Hg] Krislyn Aberegg PA Work Phone: [facility] 12-14-2022 13:23-0500 Body temperature 97.5 [degF] Gabby Lincoln LIFE SCIENCE TECHNICAL OFFICER.SOCIAL MEDIA MANAGER Work Phone: [facility] 12-14-2022 13:23-0500 Body weight 88.45 kg Gabby Lincoln LIFE SCIENCE TECHNICAL OFFICER.SOCIAL MEDIA MANAGER Work Phone: [facility] 12-14-2022 13:23-0500 Diastolic blood pressure 78 mm[Hg] Gabby Lincoln LIFE SCIENCE TECHNICAL OFFICER.SOCIAL MEDIA MANAGER Work Phone: [facility] 12-14-2022 13:23-0500 Heart rate 69 /min Gabby Lincoln LIFE SCIENCE TECHNICAL OFFICER.SOCIAL MEDIA MANAGER Work Phone: [facility] 02-14-2023 13:23-0500 Respiratory rate 18 /min Gabby Stark APRN.SOCIAL MEDIA MANAGER Work Phone: [facility] 12-14-2022 13:23-0500 SaO2% (BldA) [Mass fraction] 97 % Gabby Stark APRN.SOCIAL MEDIA MANAGER Work Phone: [facility] 12-14-2022 13:23-0500 Systolic blood pressure 130 mm[Hg] Gabby Stark APRN.SOCIAL MEDIA MANAGER Work Phone: [facility] 10-13-2022 14:16-0500 Diastolic blood pressure 70 mm[Hg] Cruz Prado MD Work Phone: [facility] 10-13-2022 14:16-0500 Systolic blood pressure 124 mm[Hg] Cruz Prado MD Work Phone: [facility] 10-13-2022 13:33-0500 Body height 174 cm Cruz Prado MD Work Phone: [facility] 10-13-2022 13:33-0500 Body weight 85.73 kg Cruz Prado MD Work Phone: [facility] 10-13-2022 13:33-0500 Heart rate 76 /min Cruz Prado MD Work Phone: [facility] 10-13-2022 13:33-0500 Respiratory rate 16 /min Cruz Prado MD Work Phone: [facility] 07-19-2022 18:05-0400 Body temperature 98.1 [degF] Asim Denis APRN.SOCIAL MEDIA MANAGER Work Phone: [facility] 07-19-2022 18:05-0400 Body weight 88.36 kg Asim Denis APRN.SOCIAL MEDIA MANAGER Work Phone: [facility] 07-19-2022 18:05-0400 Diastolic blood pressure 80 mm[Hg] Asim Denis APRN.SOCIAL MEDIA MANAGER Work Phone: [facility] 07-19-2022 18:05-0400 Heart rate 78 /min Asim Denis APRN.SOCIAL MEDIA MANAGER Work Phone: [facility] 07-19-2022 18:05-0400 Respiratory rate 16 /min Asim Denis LIFE SCIENCE TECHNICAL OFFICER.SOCIAL MEDIA MANAGER Work Phone: [facility] 07-19-2022 18:05-0400 SaO2% (BldA) [Mass fraction] 97 % Asim Denis LIFE SCIENCE TECHNICAL OFFICER.SOCIAL MEDIA MANAGER Work Phone: [facility] 07-19-2022 18:05-0400 Systolic blood pressure 128 mm[Hg] Asim Denis LIFE SCIENCE TECHNICAL OFFICER.SOCIAL MEDIA MANAGER Work Phone: [facility] 07-08-2022 16:52-0400 Body temperature 99.3 [degF] Alexandria Callow LIFE SCIENCE TECHNICAL OFFICER.SOCIAL MEDIA MANAGER Work Phone: [facility] 07-08-2022 16:52-0400 Body weight 89.09 kg Alexandria Callow LIFE SCIENCE TECHNICAL OFFICER.SOCIAL MEDIA MANAGER Work Phone: [facility] 07-08-2022 16:52-0400 Diastolic blood pressure 82 mm[Hg] Alexandria Callow LIFE SCIENCE TECHNICAL OFFICER.SOCIAL MEDIA MANAGER Work Phone: [facility] 07-08-2022 16:52-0400 Heart rate 87 /min Alexandria Callow LIFE SCIENCE TECHNICAL OFFICER.SOCIAL MEDIA MANAGER Work Phone: [facility] 07-08-2022 16:52-0400 Respiratory rate 16 /min Alexandria Callow LIFE SCIENCE TECHNICAL OFFICER.SOCIAL MEDIA MANAGER Work Phone: [facility] 07-08-2022 16:52-0400 SaO2% (BldA) [Mass fraction] 96 % Alexandria Callow LIFE SCIENCE TECHNICAL OFFICER.SOCIAL MEDIA MANAGER Work Phone: [facility] 07-08-2022 16:52-0400 Systolic blood pressure 136 mm[Hg] Alexandria Callow LIFE SCIENCE TECHNICAL OFFICER.SOCIAL MEDIA MANAGER Work Phone: [facility] 06-15-2022 08:08-0400 Body height 177.[address] Cruz Prado Work Phone: [facility] Work Phone: 06-15-2022 08:08-0400 Body mass index (BMI) [Ratio] 27.3 kg/m2 Dr. Cruz Prado Work Phone: [facility] Work Phone: 06-15-2022 08:08-0400 Body weight 86.[address] Cruz Prado Work Phone: [facility] Work Phone: 06-15-2022 08:08-0400 Diastolic blood pressure 84 mm[Hg] Dr. Cruz Prado Work Phone: [facility] Work Phone: 06-15-2022 08:08-0400 Heart rate 71 /min Dr. Cruz Prado Work Phone: [facility] Work Phone: 06-15-2022 08:08-0400 Respiratory rate 18 /min Dr. Cruz Prado Work Phone: [facility] Work Phone: 06-15-2022 08:08-0400 SaO2% (BldA) [Mass fraction] 97 % Dr. Cruz Prado Work Phone: [facility] Work Phone: 06-15-2022 08:08-0400 Systolic blood pressure 138 mm[Hg] Dr. Cruz Prado Work Phone: [facility] Work Phone: 06-01-2022 19:41-0400 Diastolic blood pressure 66 mm[Hg] Gilberto Ca MD Work Phone: [facility] 06-01-2022 19:41-0400 Heart rate 89 /min Gilberto Ca MD Work Phone: [facility] 06-01-2022 19:41-0400 Respiratory rate 16 /min Gilberto Ca MD Work Phone: [facility] 06-01-2022 19:41-0400 SaO2% (BldA) [Mass fraction] 95 % Gilberto Ca MD Work Phone: [facility] 06-01-2022 19:41-0400 Systolic blood pressure 136 mm[Hg] Gilberto Ca MD Work Phone: [facility] 06-01-2022 16:40-0400 Body temperature 99.1 [degF] Gilberto Ca MD Work Phone: [facility] 05-12-2022 16:55-0400 Body height 174 cm Cruz Prado MD Work Phone: [facility] 05-12-2022 16:55-0400 Body weight 88.91 kg Cruz Prado MD Work Phone: [facility] 05-12-2022 16:55-0400 Diastolic blood pressure 84 mm[Hg] Cruz Prado MD Work Phone: [facility] 05-12-2022 16:55-0400 Heart rate 64 /min Cruz Prado MD Work Phone: [facility] 05-12-2022 16:55-0400 Respiratory rate 16 /min Cruz Prado MD Work Phone: [facility] 05-12-2022 16:55-0400 Systolic blood pressure 128 mm[Hg] Cruz Prado MD Work Phone: [facility] 03-31-2022 09:53-0400 Body height 177.8 cm Izabela Primitivo PA-C Work Phone: [facility] 03-31-2022 09:53-0400 Body temperature 98.2 [degF] Izabela Primitivo PA-C Work Phone: [facility] 03-31-2022 09:53-0400 Body weight 88.45 kg Izabela [place] PA-C Work Phone: [facility] 03-31-2022 09:53-0400 Diastolic blood pressure 76 mm[Hg] Izabela [place] PA-C Work Phone: [facility] 03-31-2022 09:53-0400 Heart rate 82 /min Izabela Primitivo PA-C Work Phone: [facility] 03-31-2022 09:53-0400 SaO2% (BldA) [Mass fraction] 99 % Izabela Langford PA-C Work Phone: [facility] 03-31-2022 09:53-0400 Systolic blood pressure 142 mm[Hg] Izabela Langford PA-C Work Phone: [facility] 03-16-2022 14:00-0400 Body temperature 97.5 [degF] Anette Arreola PA-C Work Phone: [facility] 03-16-2022 14:00-0400 Body weight 88 kg Anette Arreola PA-C Work Phone: [facility] 03-16-2022 14:00-0400 Diastolic blood pressure 76 mm[Hg] Anette Arreola PA-C Work Phone: [facility] 03-16-2022 14:00-0400 Heart rate 72 /min Anette Arreola PA-C Work Phone: [facility] 03-16-2022 14:00-0400 Respiratory rate 18 /min Anette Arreola PA-C Work Phone: [facility] 03-16-2022 14:00-0400 Systolic blood pressure 130 mm[Hg] Anette Arreola PA-C Work Phone: [facility] 02-19-2022 16:59-0400 Body temperature 98.01 [degF] Asim Denis APRN.SOCIAL MEDIA MANAGER Work Phone: [facility] 02-19-2022 16:59-0400 Body weight 90.08 kg Asim Denis APRN.SOCIAL MEDIA MANAGER Work Phone: [facility] 02-19-2022 16:59-0400 Diastolic blood pressure 78 mm[Hg] Asim Denis APRN.SOCIAL MEDIA MANAGER Work Phone: [facility] 02-19-2022 16:59-0400 Heart rate 71 /min Asim Denis APRN.SOCIAL MEDIA MANAGER Work Phone: [facility] 02-19-2022 16:59-0400 Respiratory rate 20 /min Asim Denis APRN.SOCIAL MEDIA MANAGER Work Phone: [facility] 02-19-2022 16:59-0400 SaO2% (BldA) [Mass fraction] 96 % Asim Denis APRN.SOCIAL MEDIA MANAGER Work Phone: [facility] 02-19-2022 16:59-0400 Systolic blood pressure 130 mm[Hg] Asim Denis APRN.SOCIAL MEDIA MANAGER Work Phone: [facility] 02-16-2022 10:07-0400 Body height 177.8 cm Bear Menezes PA-C Work Phone: [facility] 02-16-2022 10:07-0400 Body temperature 97.5 [degF] Bear Menezes PA-C Work Phone: [facility] 02-16-2022 10:07-0400 Body weight 89.81 kg Bear Menezes PA-C Work Phone: [facility] 02-16-2022 10:07-0400 Diastolic blood pressure 76 mm[Hg] Bear Menezes PA-C Work Phone: [facility] 02-16-2022 10:07-0400 Heart rate 80 /min Bear Menezes PA-C Work Phone: [facility] 02-16-2022 10:07-0400 Respiratory rate 14 /min Bear Menezes PA-C Work Phone: [facility] 02-16-2022 10:07-0400 SaO2% (BldA) [Mass fraction] 97 % Bear Menezes PA-C Work Phone: [facility] 02-16-2022 10:07-0400 Systolic blood pressure 136 mm[Hg] Bear Menezes PA-C Work Phone: [facility] 02-03-2022 10:11-0400 Body height 177.[address] Alexandre Giles III Work Phone: [facility] Work Phone: 02-03-2022 10:11-0400 Body mass index (BMI) [Ratio] 28.4 kg/m2 Dr. Alexandre Giles III Work Phone: [facility] Work Phone: 02-03-2022 10:11-0400 Body temperature 97.7 [degF] Dr. Alexandre Giles III Work Phone: [facility] Work Phone: 02-03-2022 10:11-0400 Body weight [address] Alexandre Giles III Work Phone: [facility] Work Phone: 02-03-2022 10:11-0400 Diastolic blood pressure 90 mm[Hg] Dr. Alexandre Giles III Work Phone: [facility] Work Phone: 02-03-2022 10:11-0400 Heart rate 69 /min Dr. Alexandre Giles III Work Phone: [facility] Work Phone: 02-03-2022 10:11-0400 Respiratory rate 14 /min Dr. Alexandre Giles III Work Phone: [facility] Work Phone: 02-03-2022 10:11-0400 SaO2% (BldA) [Mass fraction] 98 % Dr. Alexandre Giles III Work Phone: [facility] Work Phone: 02-03-2022 10:11-0400 Systolic blood pressure 153 mm[Hg] Dr. Alexandre Giles III Work Phone: [facility] Work Phone: 01-24-2022 10:28-0400 Body temperature 97 [degF] Carlos A Mireles APRN.SOCIAL MEDIA MANAGER Work Phone: [facility] 01-24-2022 [id number] Body weight 94.44 kg Carlos A Mireles APRN.SOCIAL MEDIA MANAGER Work Phone: [facility] 01-24-2022 10:28-0400 Diastolic blood pressure 84 mm[Hg] Carlos A Mireles LIFE SCIENCE TECHNICAL OFFICER.SOCIAL MEDIA MANAGER Work Phone: [facility] 01-24-2022 10:28-0400 Heart rate 73 /min Carlos A Mierles LIFE SCIENCE TECHNICAL OFFICER.SOCIAL MEDIA MANAGER Work Phone: [facility] 01-24-2022 10:28-0400 Respiratory rate 20 /min Carlos A Mireles LIFE SCIENCE TECHNICAL OFFICER.SOCIAL MEDIA MANAGER Work Phone: [facility] 01-24-2022 10:28-0400 SaO2% (BldA) [Mass fraction] 97 % Carlos A Mireles LIFE SCIENCE TECHNICAL OFFICER.SOCIAL MEDIA MANAGER Work Phone: [facility] 01-24-2022 10:28-0400 Systolic blood pressure 138 mm[Hg] Carlos A Mireles LIFE SCIENCE TECHNICAL OFFICER.SOCIAL MEDIA MANAGER Work Phone: [facility] 12-02-2021 07:38-0500 Body mass index (BMI) [Ratio] 29 kg/m2 Dr. Alexandre Giles III Work Phone: [facility] Work Phone: 12-02-2021 07:38-0500 Body weight 91.[address] Alexandre Giles III Work Phone: [facility] Work Phone: 12-02-2021 07:38-0500 Diastolic blood pressure 72 mm[Hg] Dr. Alexandre Giles III Work Phone: [facility] Work Phone: 12-02-2021 07:38-0500 Heart rate 64 /min Dr. Alexandre Giles III Work Phone: [facility] Work Phone: 12-02-2021 07:38-0500 Respiratory rate 16 /min Dr. Alexandre Giles III Work Phone: [facility] Work Phone: 12-02-2021 07:38-0500 Systolic blood pressure 136 mm[Hg] Dr. Alexandre Giles III Work Phone: [facility] Work Phone: 10-21-2021 10:34-0500 Body mass index (BMI) [Ratio] 29 kg/m2 Dr. Alexandre Giles III Work Phone: [facility] Work Phone: 10-21-2021 10:34-0500 Body weight 91.[address] Alexandre Giles III Work Phone: [facility] Work Phone: 10-21-2021 10:34-0500 Diastolic blood pressure 109 mm[Hg] Dr. Alexandre Giles III Work Phone: [facility] Work Phone: 10-21-2021 10:34-0500 Heart rate 82 /min Dr. Alexandre Giles III Work Phone: [facility] Work Phone: 10-21-2021 10:34-0500 Respiratory rate 16 /min Dr. Alexandre Giles III Work Phone: [facility] Work Phone: 10-21-2021 10:34-0500 SaO2% (BldA) [Mass fraction] 97 % Dr. Alexandre Giles III Work Phone: [facility] Work Phone: 10-21-2021 10:34-0500 Systolic blood pressure 200 mm[Hg] Dr. Alexandre Giles III Work Phone: [facility] Work Phone: Encounters Encounter Date Encounter Type Care Provider Facility Start: 08-05-2025 End: 08-05-2025 ambulatory [facility] Facility:[facility] Start: 07-30-2025 End: 07-30-2025 ambulatory [facility] Facility:[facility] Start: 07-29-2025 End: 07-29-2025 Patient encounter procedure Whit SOUTH -[facility] Work Phone: Start: 07-29-2025 End: 07-29-2025 ambulatory Cruz Prado [place] Start: 05-30-2025 End: 05-31-2025 Telephone encounter Cruz Prado MD Work Phone: [facility] [place] Comment on above: Medication Request ( Request to increase two medications) Start: 05-28-2025 End: 05-28-2025 Patient encounter procedure Irma Brown UNDERGROUND ROOF BOLTERKelvinC -[facility] Work Phone: Start: 05-28-2025 End: 05-28-[address] Cruz Prado MD Work Phone: [facility] Start: 05-27-2025 End: 05-27-2025 Patient encounter procedure Ani Linares Work Phone: Podiatry Comment on above: Diabetic polyneuropa thy associated with type 2 diabetes mellitus (HCC) (Primary Dx); Arthritis of joint of toe; Callus of foot; Bursitis of right foot; Contusion of third toe of left foot, initial encounter Start: 05-27-2025 End: 05-27-2025 ambulatory ANI LINARES Facility:[facility] Start: 04-29-2025 End: 04-29-2025 Patient encounter procedure Whit Zambrano NP- -[facility] Work Phone: Start: 04-29-2025 End: 04-29-[address] Cruz Prado MD Work Phone: [facility] Start: 04-01-2025 End: 04-01-2025 Office outpatient visit 25 minutes Loren Vallecillo APRN.SOCIAL MEDIA MANAGER Work Phone: [facility] Comment on above: Acute non-recurrent pansinusitis (Primary Dx); Seasonal allergic rhinitis due to other allergic trigger; Acute cough Start: 04-01-2025 End: 04-01-2025 ambulatory LOREN VALLECILLO Facility:[facility] Start: 03-28-2025 End: 03-29-2025 Telephone encounter Cruz Prado MD Work Phone: [facility] [place] Comment on above: Refill Request Start: 03-19-2025 End: 03-19-2025 ambulatory CRUZ PRADO Facility:[facility] Start: 02-18-2025 End: 02-18-2025 Patient encounter procedure Asim Denis APRN.CNP Work Phone: [facility] Comment on above: Rhinosinusitis (Prim stewart Dx) Start: 02-18-2025 End: 02-18-2025 ambulatory CRUZ PRADO Facility:[facility] Start: 01-30-2025 End: 01-30-2025 Chart abstracting Milind Denis MA [facility] [facility] Comment on above: Consult (Outside End ocrinology /) Start: 01-29-2025 End: 01-29-2025 ambulatory ANI LINARES Facility:[facility] Start: 01-29-2025 End: 01-29-2025 Patient encounter procedure Ani Linares Work Phone: Podiatry Comment on above: Diabetic polyneuropa thy associated with type 2 diabetes mellitus (HCC) (Primary Dx); Arthritis of joint of toe; Callus of foot Start: 01-28-2025 End: 01-28-2025 Patient encounter procedure Whit Zambrano NP-C -[facility] Work Phone: Start: 01-28-2025 End: 01-28-2025 ambulatory Cruz Prado Facility:[facility] Start: 01-22-2025 End: 01-22-2025 Follow-up encounter Cruz Prado MD Work Phone: [facility] Start: 01-21-2025 End: 01-21-2025 ambulatory CRUZ PRADO Facility:[facility] Start: 01-17-2025 End: 01-18-2025 Follow-up encounter Cruz Prado MD Work Phone: [facility] Start: 01-16-2025 End: 01-16-2025 E-mail encounter from caregiver Milind Denis MA [facility] Start: 01-16-2025 End: 01-16-2025 ambulatory Milind Denis MA [facility] [place] [facility] Comment on above: 2nd shingriix Start: 01-16-2025 End: 01-16-2025 Ophthalmic examination and evaluation Cruz Prado MD Work Phone: [facility] Start: 01-16-2025 End: 01-16-2025 Patient encounter procedure Cruz Prado MD Work Phone: [facility] [place] Comment on above: Well adult exam ([facility] parvin Dx); Type 2 diabetes mellitus with retinopathy, without long-term current use of insulin, macular edema presence unspecified, unspecified laterality, unspecified retinopathy severity (HCC); Controlled type 2 diabetes mellitus with stage 3 chronic kidney disease, without long-term current use of insulin (HCC); Stage 3a chronic kidney disease (HCC); Diabetic eye exam (HCC); Essential hypertension, benign; Mixed hyperlipidemia; 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); SVT (supraventricular tachycardia) (HCC); Gastroesophageal reflux disease with esophagitis without hemorrhage; Iron deficiency anemia, unspecified iron deficiency anemia type; Anxiety; Chronic insomnia; Metabolic dysfunction-associated steatohepatitis (MASH); Malignant melanoma of torso excluding breast (HCC); Need for vaccination; Screening for depression; Medication management Start: 01-16-2025 End: 01-16-2025 Patient encounter status Cruz Prado MD Work Phone: [facility] Work Phone: Start: 01-08-2025 End: 01-15-2025 Refill Cruz Prado MD Work Phone: [facility] Comment on above: Refill Request Start: 12-24-2024 End: 12-24-2024 ambulatory Lucrecia Rayo [place] Start: 12-12-2024 End: 12-12-2024 ambulatory CRUZ PRADO Facility:[facility] Start: 12-12-2024 End: 12-12-2024 Office outpatient visit 25 minutes Jeffery Brothers PA-C Work Phone: [facility] Comment on above: Acute recurrent sinu sitis, unspecified location (Primary Dx) Start: 12-04-2024 End: 12-04-2024 Chart abstracting Cruz Prado MD Work Phone: [facility] [place] Comment on above: Outside [id number] Ordered Start: 11-30-2024 End: 11-30-2024 Chart abstracting Cruz Prado MD Work Phone: [facility] Comment on above: Outside [id number]-[id number] Ordered Start: 11-29-2024 End: 11-29-2024 Chart abstracting Cruz Prado MD Work Phone: [facility] [place] Comment on above: Outside Xidd-Wli-WMK Ordered Start: 11-27-2024 End: 11-28-2024 ambulatory [facility] Facility:[facility] Start: 11-21-2024 End: 11-21-2024 Chart abstracting Cruz Prado MD Work Phone: [facility] Comment on above: Outside EGD/ H&P Start: 11-21-2024 End: 11-22-2024 Telephone encounter Cruz Prado MD Work Phone: [facility] Comment on above: Results Start: 11-21-2024 End: 11-21-2024 ambulatory CRUZ PRADO Facility:[facility] Start: 11-20-2024 End: 11-20-2024 ambulatory Cruz Prado MD Work Phone: [facility] Comment on above: Ozempic Start: 11-14-2024 End: 11-14-2024 Chart abstracting Cruz Prado MD Work Phone: [facility] Comment on above: Outside Imaging Start: 11-13-2024 End: 11-13-[facility] Start: 11-07-2024 End: 11-07-2024 Telephone encounter Cruz Prado MD Work Phone: [facility] Comment on above: Faxed to [facility] Start: 11-06-2024 End: 11-07-2024 ambulatory Cruz Prado MD Work Phone: [facility] Start: 11-06-2024 End: 11-07-2024 Patient encounter procedure Cruz Prado MD Work Phone: [facility] Comment on above: Could you please fanta e a referral to the [place] [facility] department at [facility]? I cannot get in without that. Start: 10-29-2024 End: 10-29-2024 Refill Cruz Prado MD Work Phone: [facility] Comment on above: Refill Request Start: 10-22-2024 End: 10-22-2024 ambulatory Cruz Prado MD Work Phone: [facility] Comment on above: A1c Start: 10-18-2024 End: 10-18-2024 Refill Cruz Prado MD Work Phone: [facility] Comment on above: Refill Request Start: 10-17-2024 End: 10-17-2024 Chart abstracting Milind Denis MA [facility] [place] Comment on above: Results (Outside [facility] ) Start: 10-17-2024 End: 10-19-2024 Telephone encounter Cruz Prado MD Work Phone: [facility] Comment on above: medication issue Insurance Authorizat ion Start: 10-15-2024 End: 10-15-2024 ambulatory Irma Kevin Facility:[facility] Start: 10-08-2024 End: 10-08-2024 Telephone encounter Cruz Prado MD Work Phone: [facility] Comment on above: Patient Question Appointment Start: 09-24-2024 End: 09-24-2024 ambulatory Cruz Prado Facility:[facility] Start: 09-21-2024 End: 09-26-2024 Refill Cruz Prado MD Work Phone: [facility] Comment on above: Refill Request Insurance Authorizat ion Start: 09-11-2024 End: 09-11-2024 Telephone encounter Milind Denis MA [facility] [place] Comment on above: Results Start: 09-07-2024 End: 09-07-2024 Chart abstracting [facility] Start: 09-07-2024 ambulatory Cruz Prado Facility :[facility] Start: 08-31-2024 End: 08-31-2024 Refill Cruz Prado MD Work Phone: [facility] Comment on above: Refill Request Start: 08-20-2024 End: 08-20-2024 Telephone encounter Cruz Prado MD Work Phone: [facility] [facility] Comment on above: requesting medicatio n that is Consult Start: 07-12-2024 End: 07-12-2024 Patient encounter procedure Anette Arreola PA-C Work Phone: [facility] Comment on above: Essential hypertensi on, benign (Primary Dx); Controlled type 2 diabetes mellitus with stage 3 chronic kidney disease, without long-term current use of insulin (HCC); Type 2 diabetes mellitus with retinopathy, without long-term current use of insulin, macular edema presence unspecified, unspecified laterality, unspecified retinopathy severity (HCC); Gastroesophageal reflux disease with esophagitis without hemorrhage; Stage 3a chronic kidney disease (HCC); SVT (supraventricular tachycardia) (HCC); 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) Start: 07-06-2024 End: 07-06-2024 Telephone encounter Lorie Moses APRN.CNP Work Phone: [facility] Comment on above: Results Start: 06-26-2024 End: 06-26-2024 Telephone encounter Milind Denis MA [facility] [address] Comment on above: Results Start: 06-07-2024 End: 06-07-2024 Patient encounter procedure Ani Linares Work Phone: Podiatry Comment on above: 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) (Primary Dx); Venous insufficiency Start: 05-14-2024 [facility] Comment on above: FMLA Paperwork Start: 05-02-2024 End: 05-02-2024 Patient encounter procedure Cruz Prado MD Work Phone: [facility] Comment on above: Scar pain (Primary D x); Chronic insomnia; Irritable bowel syndrome with both constipation and diarrhea Start: 04-26-2024 End: 04-26-2024 Patient encounter procedure Ani Linares Work Phone: Podiatry Comment on above: 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) (Primary Dx); Callus of foot Start: 04-12-2024 End: 04-12-2024 Patient encounter procedure Francisco Suh MD Work Phone: [facility] Comment on above: Chronic sinusitis, u nspecified location (Primary Dx); Impacted cerumen of left ear; Controlled type 2 diabetes mellitus with stage 3 chronic kidney disease, without long-term current use of insulin (HCC) Start: 04-09-2024 Telephone encounter Cruz Prado MD Work Phone: [facility] [place] Comment on above: Forms Start: 04-05-2024 ambulatory Cruz cast MD Work Phone: [facility] [place] Comment on above: Fmla paper work Start: 04-04-2024 End: 04-04-2024 Patient encounter procedure Tanya Vega LIFE SCIENCE TECHNICAL OFFICER.SOCIAL MEDIA MANAGER Work Phone: [facility] Comment on above: Encounter to obtain excuse from work (Primary Dx); Acute non-recurrent sinusitis, unspecified location Start: 04-02-2024 End: 04-02-2024 Patient encounter procedure Francisco Suh MD Work Phone: [facility] Comment on above: Acute non-recurrent sinusitis, unspecified location (Primary Dx) Refill Request Start: 01-31-2024 End: 01-31-2024 Patient encounter procedure Lorie Moses LIFE SCIENCE TECHNICAL OFFICER.SOCIAL MEDIA MANAGER Work Phone: [facility] [place] Comment on above: Irritable bowel synd jemal with both constipation and diarrhea (Primary Dx) Start: 01-02-2024 Telephone encounter Cruz Prado MD Work Phone: [facility] [place] Comment on above: Results Start: 12-30-2023 Patient encounter status Elidia Prado MD Work Phone: [facility] Work Phone: Start: 12-20-2023 Telephone encounter Cruz Prado MD Work Phone: [facility] [place] Comment on above: Medication Problem Start: 10-27-2023 ambulatory LORIE KNJONO Maharaj y:[facility] Start: 09-27-2023 End: 09-27-2023 Patient encounter procedure Alexandria Contreras LIFE SCIENCE TECHNICAL OFFICER.SOCIAL MEDIA MANAGER Work Phone: [facility] [place] Comment on above: Pain of maxillary si nus (Primary Dx) Start: 09-26-2023 End: 09-26-2023 Patient encounter procedure Nkechi Ramos PA-C Work Phone: Orthopaedics Comment on above: Trigger ring finger of right hand (Primary Dx); Dupuytren's disease of palm Start: 09-15-2023 Telephone encounter Cruz Prado MD Work Phone: [facility] [place] Comment on above: FMLA Paperwork (Rece rtification ) Start: 09-12-2023 Telephone encounter Milind Denis MA [facility] [place] Comment on above: Orders Start: 09-07-2023 Telephone encounter Pablito pugh MD Work Phone: Orthopaedics Comment on above: [facility] Paperwork Start: 08-22-2023 End: 08-22-2023 Patient encounter procedure Pablito Ruiz MD Work Phone: Orthopaedics Comment on above: Trigger ring finger of right hand (Primary Dx); Dupuytren's disease of palm Start: 08-22-2023 Telephone encounter Pablito pugh MD Work Phone: Orthopaedics Comment on above: Schedule Surgery Start: 08-19-2023 End: 08-19-2023 Patient encounter procedure Gabby Stark LIFE SCIENCE TECHNICAL OFFICER.SOCIAL MEDIA MANAGER Work Phone: [facility] Comment on above: Eye problem (Primary Dx) Start: 08-16-2023 End: 08-16-2023 Patient encounter procedure Ani Linares Work Phone: Podiatry Comment on above: 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) (Primary Dx); Other diabetic neurological complication associated with type 2 diabetes mellitus (HCC); Callus of foot Start: 08-05-2023 End: 08-05-2023 Patient encounter procedure Asim Cira RIVERA Work Phone: [facility] Comment on above: URI, acute (Primary Dx) Start: 08-05-2023 Telephone encounter Anette urbano PA-C Work Phone: [facility] Comment on above: Patient Question Start: 08-04-2023 End: 08-04-2023 Patient encounter procedure Anette Arreola PA-C Work Phone: [facility] Comment on above: Irritable bowel synd jemal with both constipation and diarrhea (Primary Dx); Encounter for immunization; Controlled type 2 diabetes mellitus with stage 3 chronic kidney disease, without long-term current use of insulin ([facility]) Start: 06-20-2023 End: 06-20-2023 Emergency department patient visit [facility] Work Phone: Start: 06-02-2023 End: 06-02-2023 Emergency department patient visit [facility] Work Phone: Start: 05-19-2023 Vaishnavi cast MD Work Phone: [facility] Start: 05-10-2023 End: 05-10-2023 Emergency department patient visit [facility] Work Phone: Start: 02-23-2023 End: 02-23-2023 ambulatory Jannet Rock PT Work Phone: [facility] Comment on above: Pain in both lower e xtremities (Primary Dx); Greater trochanteric bursitis of both hips; Acute midline low back pain without sciatica; Muscle weakness of lower extremity Start: 02-15-2023 End: 02-15-2023 ambulatory Jannet Rock PT Work Phone: [facility] Comment on above: Pain in both lower e xtremities (Primary Dx); Greater trochanteric bursitis of both hips; Acute midline low back pain without sciatica; Muscle weakness of lower extremity Start: 02-01-2023 Refill Cruz cast MD Work Phone: [facility] Comment on above: Refill Request Start: 01-26-2023 Telephone encounter Milind Denis MA [facility] Comment on above: Medication Problem Results Start: 01-21-2023 End: 01-21-2023 Subsequent hospital visit by physician [facility] Work Phone: Radiology Comment on above: Bilateral hip pain [ M25.551, M25.552] Start: 01-10-2023 End: 01-11-2023 ambulatory Jannet Pranav PT Work Phone: [facility] Comment on above: Pain in both lower e xtremities; Greater trochanteric bursitis of both hips; Acute midline low back pain without sciatica; Muscle weakness of lower extremity Start: 01-08-2023 End: 01-08-2023 Patient encounter procedure Jesus Mc PA Work Phone: [facility] Comment on above: Conjunctivitis of le ft eye, unspecified conjunctivitis type (Primary Dx) Start: 12-24-2022 Refill Cruz cast MD Work Phone: [facility] Comment on above: Refill Request Start: 12-14-2022 Telephone encounter Cruz Prado MD Work Phone: [facility] Comment on above: Results Start: 12-14-2022 End: 12-14-2022 Patient encounter procedure Gabby Stark APRN.SOCIAL MEDIA MANAGER Work Phone: [facility] Comment on above: Fatigue, unspecified type (Primary Dx); Diarrhea, unspecified type Start: 12-10-2022 Telephone encounter Cruz Prado MD Work Phone: [facility] Comment on above: Results Start: 12-09-2022 End: 12-09-2022 Subsequent hospital visit by physician [facility] [place] Work Phone: Radiology Comment on above: Acute midline low ba ck pain without sciatica [M54.50] Start: 11-11-2022 Refill Cruz cast MD Work Phone: [facility] [place] Comment on above: Refill Request Start: 11-02-2022 Telephone encounter Cruz Prado MD Work Phone: [facility] [place] Comment on above: Results Start: 10-18-2022 Refill Cruz cast MD Work Phone: [facility] [place] Comment on above: Refill Request Start: 10-13-2022 Ophthalmic examinati on and evaluation CRUZ PRADO [facility] Work Phone: Start: 10-13-2022 End: 10-13-2022 Patient encounter procedure Cruz Prado MD Work Phone: [facility] [place] Comment on above: Well adult exam (Nilda parvin Dx); Controlled type 2 diabetes mellitus with stage 3 chronic kidney disease, without long-term current use of insulin (HCC); Type 2 diabetes mellitus with retinopathy, without long-term current use of insulin, macular edema presence unspecified, unspecified laterality, unspecified retinopathy severity (HCC); 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); SVT (supraventricular tachycardia) (HCC); Essential hypertension, benign; Mixed hyperlipidemia; Iron deficiency anemia, unspecified iron deficiency anemia type; Gastroesophageal reflux disease with esophagitis without hemorrhage; 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; Anxiety; Chronic insomnia; Malignant melanoma of torso excluding breast (HCC); Retinopathy; Living will on file at physician's office; Advance directive discussed with patient; History of BPH; Pain in both lower extremities; Encounter for immunization Start: 10-13-2022 End: 10-13-2022 Patient encounter status Cruz Prado MD Work Phone: [facility] [place] Start: 08-25-2022 Telephone encounter Ani Suarez Work Phone: Podiatry Comment on above: Results Start: 08-23-2022 Patient encounter status Elidia Prado MD Work Phone: [facility] [place] Start: 08-23-2022 Telephone encounter Cruz Prado MD Work Phone: [facility] Comment on above: Orders Start: 08-08-2022 Refill Anette Munizins on PA-C Work Phone: [facility] Comment on above: Refill Request Start: 08-06-2022 Telephone encounter Anette urbano PA-C Work Phone: [facility] Comment on above: requesting 90 day dorantes pply for rx Start: 08-04-2022 End: 08-04-[address] Cruz Prado Work Phone: [facility] Work Phone: Start: 08-04-2022 End: 08-04-[address] Cruz Prado Work Phone: [facility]Neu[facility] Start: 07-19-2022 End: 07-19-2022 Patient encounter procedure Asim Denis APRN.SOCIAL MEDIA MANAGER Work Phone: [facility] Comment on above: Skin infection (Prim stewart Dx) Start: 07-09-2022 ambulatory Cruz cast MD Work Phone: [facility] Comment on above: Question regarding C OVID WITH FLUA+B, ROUTINE COVID positive; inqu iring about paxlovid Start: 07-08-2022 End: 07-08-2022 Patient encounter procedure Alexandria Pace APRN.SOCIAL MEDIA MANAGER Work Phone: [facility] Comment on above: Sinus congestion (Pr imary Dx); Acute upper respiratory infection, unspecified Start: 07-06-2022 Telephone encounter Antete urbano PA-C Work Phone: [facility] Comment on above: Appointment Canceled (FYI) Start: 06-18-2022 End: 06-18-2022 ambulatory Izabela Langford PA-C Work Phone: General Surgery Comment on above: 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 (Primary Dx); Chronic superficial gastritis without bleeding; Diverticulosis Start: 06-18-2022 End: 06-18-2022 Telemedicine consultation with patient Izabela Langford PA-C Work Phone: [facility] Start: 06-15-2022 End: 06-15-[address] Cruz Prado Work Phone: [facility] Start: 06-09-2022 Telephone encounter Rema Aburto APRN.CNP Work Phone: G[facility]enterology [place] Comment on above: Opened In Error Start: 06-01-2022 End: 06-01-2022 Subsequent hospital visit by physician Gilberto Ca MD Work Phone: Ambulatory Surgery Comment on above: Abdominal pain, unsp ecified abdominal location [R10.9] Start: 05-30-2022 Telephone encounter Cruz Prado MD Work Phone: [facility] Comment on above: Results Start: 05-12-2022 End: 05-12-2022 Patient encounter procedure Cruz Prado MD Work Phone: [facility] Comment on above: Burning sensation of foot (Primary Dx); Numbness and tingling of foot; Pain in both lower extremities; Foot pain, bilateral Start: 03-31-2022 Telephone encounter Izabela zazueta PA-C Work Phone: General Surgery Comment on above: 06-01-2022 COLON EGD [facility] Start: 03-31-2022 End: 03-31-2022 Patient encounter procedure Izabela Langford PA-C Work Phone: General Surgery Comment on above: History of colonic p olyps (Primary Dx); Abdominal pain, unspecified abdominal location; 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; History of malignant melanoma Start: 03-18-2022 Ophthalmic examinati on and evaluation Izabela Langford PA-C Work Phone: [facility] Start: 03-16-2022 End: 03-16-2022 Patient encounter procedure Anette Arreola PA-C Work Phone: [facility] Comment on above: Hypersomnia (Primary Dx); Fatigue, unspecified type; Snoring; 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; Abdominal pain, unspecified abdominal location; Mixed hyperlipidemia; Essential hypertension, benign; Controlled type 2 diabetes mellitus with stage 3 chronic kidney disease, without long-term current use of insulin (HCC); Type 2 diabetes mellitus with retinopathy, without long-term current use of insulin, macular edema presence unspecified, unspecified laterality, unspecified retinopathy severity (HCC) Start: 02-19-2022 End: 02-19-2022 Patient encounter procedure Asim Cira LEDBETTERSOCIAL MEDIA MANAGER Work Phone: [facility] Comment on above: Head congestion (Nilda parvin Dx) Start: 02-18-2022 ambulatory Cruz cast MD Work Phone: [facility] [place] Comment on above: [id number] mg Prescription Refills Start: 02-16-2022 End: 02-16-2022 Patient encounter procedure Bear Menezes PA-C Work Phone: Urology Comment on above: Impotence of organic origin (Primary Dx) Start: 02-04-2022 ambulatory Bear Menezes PA-C Work Phone: Urology Comment on above: Penile injections Start: 02-03-2022 Telephone encounter Bear novoa PA-C Work Phone: Urology Comment on above: Appointment Start: 02-03-2022 End: 02-03-2022 Emergency department patient visit Dr. Alexandre Giles III Work Phone: [facility] Start: 01-29-2022 End: 01-29-2022 ambulatory Bear Menezes PA-C Work Phone: Urology Comment on above: Impotence of organic origin (Primary Dx); Controlled type 2 diabetes mellitus with stage 3 chronic kidney disease, without long-term current use of insulin ([facility]) Start: 01-29-2022 End: 01-29-2022 Telemedicine consultation with patient Bear Menezes PA-C Work Phone: [facility] Start: 01-29-2022 Telephone encounter Bear novoa PA-C Work Phone: Urology Comment on above: Question patient asking for r eferral Start: 01-24-2022 End: 01-24-2022 Patient encounter procedure Carlos A Mireles WOODYMaureenSOCIAL MEDIA MANAGER Work Phone: [facility] Comment on above: Irritation of right eye (Primary Dx) Start: 01-22-2022 Telephone encounter Bear Ortez bright MCKAY Work Phone: Urology Comment on above: appointment question Start: 01-18-2022 Refill Cruz cast MD Work Phone: [facility] Comment on above: Refill Request Start: 12-02-2021 End: 12-02-[address] Alexandre Giles III Work Phone: [facility] Start: 11-04-2021 Non-patient / Non-visit Dr. Fr lorrie Giles III Work Phone: [facility] Start: 11-04-2021 End: 11-04-[address] [facility] Start: 10-21-2021 End: 10-21-[address] Alexandre Giles III Work Phone: [facility] Start: 08-03-2021 End: 08-03-2021 Subsequent hospital visit by physician X[facility] Work Phone: Radiology Comment on above: RUQ abdominal pain [ R10.11] Start: 10-18-2020 End: 10-18-2020 Subsequent hospital visit by physician Xr [facility] Work Phone: Radiology Comment on above: Right flank pain [R1 0.9] Start: 08-21-2018 End: 08-21-2018 ambulatory Proce Wstr Work Phone: Gastro/Endoscopy Comment on above: No Show Start: 08-21-2018 End: 08-21-2018 Patient encounter procedure Proce Rm [facility] Work Phone: [facility] Start: 12-23-2017 Ambulatory Say [facility] Start: 09-29-2011 End: 02-15-2013 Patient encounter status Francisco Suh MD Work Phone: [facility] Work Phone: Procedures Date Procedure Procedure Detail Performing Clinician Start: 01-16-2025 Adult depression screening assessment Cruz Prado MD Work Phone: Start: 08-05-2023 COVID & INFLUENZA A/B & RSV NAAT, ROUTINE Asim Denis APRN.SOCIAL MEDIA MANAGER Work Phone: Start: 08-05-2023 Iadna respiratry probe & rev trnscr 3-5 targets Asim Denis APRN.SOCIAL MEDIA MANAGER Work Phone: Start: 08-05-2023 Sars-cov-2 detection by dna/rna Dora Denis APRN.SOCIAL MEDIA MANAGER Work Phone: Start: 08-04-2023 INFLUENZA VACCINE, PRSV FREE, AGE 65+ YR, HIGH DOSE, QUADRIVALENT (FLUZONE HIGH-DOSE) Anette Arreola PA-C Work Phone: Start: 01-21-2023 Radex hips bilateral with pelvis minimum 5 views Cruz Prado MD Work Phone: Start: 12-09-2022 Radex spine lumbosacral minimum 4 views Cruz Prado MD Work Phone: Start: 10-13-2022 INFLUENZA SEASONAL QUADRIVALENT HIGH DOSE AGE 65+ Cruz Prado MD Work Phone: Start: 06-01-2022 Gluc bld gluc mntr dev cleared fda spec home use Gilberto Ca MD Work Phone: Start: 06-01-2022 Esophagogastroduodenoscopy transoral diagnostic Izabela Langford PA-C Work Phone: Start: 06-01-2022 Colon ca scrn not hi rsk ind Izabela JAUREGUIC Work Phone: Start: 06-01-2022 Gluc bld gluc mntr dev cleared fda spec home use Gilberto Ca MD Work Phone: Start: 06-01-2022 Colonoscopy Gilberto Ca MD Work Phone: Start: 08-03-2021 Radiologic exam abdomen 1 view Cruz Prado MD Work Phone: Start: 10-18-2020 Radiologic exam abdomen 3+ views Jered Butler APRN.SOCIAL MEDIA MANAGER, DNP Work Phone: Start: 01-22-2019 Antibody screen Comment on above: Performed By: #### T&S #### [place] [id number] Start: 08-21-2018 EGD - THERAPEUTIC, EUS, OR TUBE INTERVENTIONS [facility] Provider Start: 08-21-2018 Colonoscopy Cruz Prado MD Work Phone: Plan of Treatment Date Care Activity Detail Author Start: 06-01-2027 Colonoscopy COLONOSCOPY [facility] Start: 06-01-2027 COLORECTAL CANCER SCREENING COLORECTAL CANCER SCREENING [facility] Start: 06-01-2027 Screening for malignant neoplasm of colon [facility] Start: 03-13-2027 Urine microalbumin profile [facility] Start: 12-12-2026 PROSTATE CANCER SCREENING DISCUSSION PROSTATE CANCER SCREENING DISCUSSION [facility] Start: 04-01-2026 BP Controlled (<130/80) BP Controlled (<130/80) [facility] Start: 02-18-2026 BP Controlled (<130/80) BP Controlled (<130/80) [facility] Start: 01-16-2026 Annual PCP Team Chronic Disease Visit Annual PCP Team Chronic Disease Visit [facility] Start: 01-16-2026 BP Controlled (<130/80) BP Controlled (<130/80) [facility] Start: 01-16-2026 Complete blood count Hemoglobin/Hematocrit [facility] Start: 01-16-2026 Creatinine measurement Serum Creatinine [facility] Start: 01-16-2026 Depression Screening Depression Screening [facility] Start: 01-16-2026 Diabetic foot examination Diabetic Foot Exam [facility] Start: 01-16-2026 Hepatitis B screening Urine Albumin:Creatinine Ratio [facility] Start: 01-16-2026 Hepatitis B surface antibody level LDL Cholesterol [facility] Start: 01-16-2026 RSV Vaccine (1 - Risk 60-74 years 1-dose series) RSV Vaccine (1 - Risk 60-74 years 1-dose series) [facility] Comment on above: Postponed from 2013 (Insurance Cov erage) Start: 08-27-2025 End: 08-27-2025 Patient encounter procedure 08/27/2025 8:30 AM EDT Office Visit Podiatry [address] [place], [place] [phone] Ani Linares [address] [place], [place] [id number] 3 month follow up nail care and possible procedure Podiatry Comment on above: 3 month follow up nail care and possible procedure Start: 07-23-2025 End: 07-23-2025 Patient encounter procedure 07/23/2025 9:20 AM EDT Office Visit Family [facility] [address] [facility] [place] [id number] Lorie Moses APRN.[facility] [address] [place], [place] [id number] 6 month follow up Family [facility] Comment on above: 6 month follow up Start: 07-19-2025 Hemoglobin A1c measurement HbA1C [facility] Start: 07-12-2025 Annual PCP Team Chronic Disease Visit Annual PCP Team Chronic Disease Visit [facility] Start: 07-08-2025 End: 07-08-2025 ambulatory 07/08/2025 9:00 AM EDT Results Only [facility] [address] [facility] [place] [id number] [facility] Start: 07-05-2025 End: 10-04-2025 CBC W Auto Differential panel - Blood COMPLETE BLOOD COUNT AND DIFFERENTIAL Lab Routine Type 2 diabetes mellitus with retinopathy, without long-term current use of insulin, macular edema presence unspecified, unspecified laterality, unspecified retinopathy severity (HCC) Controlled type 2 diabetes mellitus with stage 3 chronic kidney disease, without long-term current use of insulin (HCC) Iron deficiency anemia, unspecified iron deficiency anemia type Expected: 07/05/2025, Expires: 10/04/2025 [facility] Comment on above: Expected: 07/05/2025, Expires: Start: 07-05-2025 End: 10-04-2025 Comprehensive metabolic 2000 panel - Serum or Plasma COMPREHENSIVE METABOLIC PANEL Lab Routine Type 2 diabetes mellitus with retinopathy, without long-term current use of insulin, macular edema presence unspecified, unspecified laterality, unspecified retinopathy severity (HCC) Controlled type 2 diabetes mellitus with stage 3 chronic kidney disease, without long-term current use of insulin (HCC) Stage 3a chronic kidney disease (HCC) Essential hypertension, benign Mixed hyperlipidemia Expected: 07/05/2025, Expires: 10/04/2025 [facility] Comment on above: Expected: 07/05/2025, Expires: Start: 07-05-2025 End: 10-04-2025 Hemoglobin A1c in Blood HEMOGLOBIN A1C Lab Routine Type 2 diabetes mellitus with retinopathy, without long-term current use of insulin, macular edema presence unspecified, unspecified laterality, unspecified retinopathy severity (HCC) Controlled type 2 diabetes mellitus with stage 3 chronic kidney disease, without long-term current use of insulin (HCC) Expected: 07/05/2025, Expires: 10/04/2025 [facility] Comment on above: Expected: 07/05/2025, Expires: Start: 07-05-2025 End: 10-04-2025 Iron and Iron binding capacity panel - Serum or Plasma IRON AND TIBC Lab Routine Iron deficiency anemia, unspecified iron deficiency anemia type Expected: 07/05/2025, Expires: 10/04/2025 [facility] Comment on above: Expected: 07/05/2025, Expires: Start: 07-05-2025 End: 10-04-2025 LIPID PANEL, NONFASTING LIPID PANEL, NONFASTING Lab Routine Type 2 diabetes mellitus with retinopathy, without long-term current use of insulin, macular edema presence unspecified, unspecified laterality, unspecified retinopathy severity (HCC) Controlled type 2 diabetes mellitus with stage 3 chronic kidney disease, without long-term current use of insulin (HCC) Essential hypertension, benign Mixed hyperlipidemia Expected: 07/05/2025, Expires: 10/04/2025 [facility] Comment on above: Expected: 07/05/2025, Expires: Start: 07-01-2025 Influenza vaccination Influenza Vaccine (#1) [facility] Start: 06-07-2025 Diabetic foot examination Diabetic Foot Exam [facility] Start: 06-01-2025 Glaucoma screening Dilated Retinal Exam [facility] Start: 05-28-2025 Complete blood count Hemoglobin/Hematocrit [facility] Start: 05-28-2025 Creatinine measurement Serum Creatinine [facility] Start: 05-28-2025 Hepatitis B surface antibody level LDL Cholesterol [facility] Start: 05-21-2025 Hemoglobin A1c measurement HbA1C [facility] Start: 05-02-2025 Annual PCP Team Chronic Disease Visit Annual PCP Team Chronic Disease Visit [facility] Start: 04-04-2025 BP Controlled (<130/80) BP Controlled (<130/80) [facility] Start: 03-19-2025 End: 03-19-2025 Nursing evaluation of patient and report 03/19/2025 9:15 AM EDT Nurse Visit [facility] [place] [address] [place], [place] [id number] Nurse, [place] [address] [place], [place] [phone] 2nd Shingrix [facility] [place] Comment on above: 2nd Shingrix Start: 03-17-2025 Hzv zoster vacc recombinant adjuvanted im njx ZOSTER VACCINE, RECOMBINANT (SHINGRIX) Immunization/Injection Routine Need for vaccination Expected: 03/17/2025 (Approximate) [facility] Work Phone: Comment on above: Expected: 03/17/2025 (Approximate) Start: 03-13-2025 Shingrix Vaccine (2 of 2) Shingrix Vaccine (2 of 2) [facility] Start: 01-30-2025 Annual PCP Team Chronic Disease Visit Annual PCP Team Chronic Disease Visit [facility] Start: 01-29-2025 End: 01-29-2025 Patient encounter procedure Podiatry Comment on above: Aching toe right foot big toe, Annual ex am Start: 01-17-2025 End: 04-18-2025 25-hydroxyvitamin D3 [Mass/volume] in Serum or Plasma VITAMIN D 25 HYDROXY Lab Routine Hypercalcemia Expected: 01/17/2025, Expires: 04/18/2025 [facility] Work Phone: Comment on above: Expected: 01/17/2025, Expires: Start: 01-17-2025 End: 04-18-2025 Calcium [Mass/volume] in Serum or Plasma CALCIUM, TOTAL Lab Routine Hypercalcemia Expected: 01/17/2025, Expires: 04/18/2025 [facility] Comment on above: Expected: 01/17/2025, Expires: Start: 01-17-2025 End: 04-18-2025 Parathyrin.intact [Mass/volume] in Serum or Plasma PTH INTACT Lab Routine Hypercalcemia Expected: 01/17/2025, Expires: 04/18/2025 [facility] Comment on above: Expected: 01/17/2025, Expires: Start: 01-16-2025 End: 04-17-2025 CBC W Auto Differential panel - Blood [facility] Comment on above: Expected: 01/16/2025, Expires: Start: 01-16-2025 End: 04-17-2025 Cobalamin (Vitamin B12) [Mass/volume] in Serum or Plasma [facility] Comment on above: Expected: 01/16/2025, Expires: Start: 01-16-2025 End: 04-17-2025 Comprehensive metabolic 2000 panel - Serum or Plasma [facility] Comment on above: Expected: 01/16/2025, Expires: Start: 01-16-2025 End: 04-17-2025 Hemoglobin A1c in Blood [facility] Comment on above: Expected: 01/16/2025, Expires: Start: 01-16-2025 End: 04-17-2025 Iron and Iron binding capacity panel - Serum or Plasma [facility] Comment on above: Expected: 01/16/2025, Expires: Start: 01-16-2025 End: 04-17-2025 LIPID PANEL, NONFASTING [facility] Comment on above: Expected: 01/16/2025, Expires: Start: 01-16-2025 End: 04-17-2025 Magnesium [Mass/volume] in Serum or Plasma [facility] Comment on above: Expected: 01/16/2025, Expires: Start: 01-16-2025 End: 04-17-2025 Microalbumin/Creatini ne [Mass Ratio] in Urine [facility] Comment on above: Expected: 01/16/2025, Expires: Start: 01-16-2025 End: 04-17-2025 Urinalysis complete panel - Urine [facility] Comment on above: Expected: 01/16/2025, Expires: Start: 01-16-2025 End: 01-16-2025 Patient encounter procedure [facility] [place] Comment on above: physical Start: 12-29-2024 Annual PCP Team Chronic Disease Visit Annual PCP Team Chronic Disease Visit [facility] Start: 12-29-2024 BP Controlled (<130/80) BP Controlled (<130/80) [facility] Start: 12-29-2024 RSV Vaccine (1 - 1-dose 60+ series) RSV Vaccine (1 - 1-dose 60+ series) [facility] Comment on above: Postponed from 2013 (Insurance Cov erage) Start: 12-29-2024 RSV Vaccine (1 - Risk 60-74 years 1-dose series) RSV Vaccine (1 - Risk 60-74 years 1-dose series) [facility] Comment on above: Postponed from 2013 (Insurance Cov erage) Start: 12-29-2024 Shingrix Vaccine (1 of 2) Shingrix Vaccine (1 of 2) [facility] Comment on above: Postponed from 2003 (Insurance Cov erage) Start: 11-29-2024 Annual PCP Team Chronic Disease Visit Annual PCP Team Chronic Disease Visit [facility] Start: 11-28-2024 Hemoglobin A1c measurement HbA1C [facility] Start: 11-25-2024 Complete blood count Hemoglobin/Hematocrit [facility] Start: 11-25-2024 Creatinine measurement Serum Creatinine [facility] Start: 11-25-2024 Hepatitis B screening Urine Albumin:Creatinine Ratio [facility] Start: 11-25-2024 Hepatitis B surface antibody level LDL Cholesterol [facility] Start: 11-20-2024 End: 02-19-2025 Hemoglobin A1c in Blood HEMOGLOBIN A1C Lab Routine Controlled type 2 diabetes mellitus with stage 3 chronic kidney disease, without long-term current use of insulin (HCC) Expected: 11/20/2024, Expires: 02/19/2025 [facility] Work Phone: Comment on above: Expected: 11/20/2024, Expires: 5 Start: 10-31-2024 Advance Directive Discussion Advance Directive Discussion [facility] Start: 10-30-2024 Behavioral Health Screening Behavioral Health Screening [facility] Comment on above: Postponed from 10/31/2023 (Declined at t his time) Start: 10-30-2024 Depression Assessment Depression Assessment [facility] Comment on above: Postponed from 10/31/2023 (Declined at t his time) Start: 10-22-2024 End: 01-21-2025 Hemoglobin A1c in Blood HEMOGLOBIN A1C Lab Routine Controlled type 2 diabetes mellitus with stage 3 chronic kidney disease, without long-term current use of insulin (HCC) Expected: 10/22/2024, Expires: 01/21/2025 [facility] Work Phone: Comment on above: Expected: 10/22/2024, Expires: Start: 09-27-2024 Annual PCP Team Chronic Disease Visit Annual PCP Team Chronic Disease Visit [facility] Start: 09-27-2024 Covid-19 Vaccine () Covid-19 Vaccine () [facility] Comment on above: Postponed from 07/01/2023 (Declined at t his time) Start: 09-01-2024 Annual PCP Team Chronic Disease Visit Annual PCP Team Chronic Disease Visit [facility] Start: 08-16-2024 3 comp foot exam completed Diabetic Foot Exam [facility] Start: 08-16-2024 Diabetic foot examination Diabetic Foot Exam [facility] Start: 08-05-2024 BP Controlled (<130/80) BP Controlled (<130/80) [facility] Start: 08-04-2024 Annual PCP Team Chronic Disease Visit Annual PCP Team Chronic Disease Visit [facility] Start: 07-06-2024 End: 07-06-2024 Patient encounter procedure 07/06/2024 9:40 AM EDT Office Visit [facility] [place] [address] [place] [address] Lorie Moses APRN.[employer]IAL [employer]IA MANAGER [address] [place] [address] 6 month follow up [facility] [place] Comment on above: 6 month follow up Start: 07-01-2024 Covid-19 Vaccine ( season) Covid-19 Vaccine () [facility] Start: 07-01-2024 Covid-19 Vaccine () Covid-19 Vaccine () [facility] Start: 07-01-2024 Influenza vaccination Influenza Vaccine (#1) [facility] Start: 06-18-2024 End: 06-18-2024 Patient encounter procedure 06/18/2024 8:50 AM EDT Office Visit [facility] [address] [id number] Cheryle Acosta PA-C [address] [place], [place] [phone] Irritable bowel syndrome with both constipation and diarrhea [K58.2] [facility] Comment on above: Irritable bowel syndrome with both const ipation and diarrhea [K58.2] Start: 06-07-2024 End: 06-07-2024 Patient encounter procedure 06/07/2024 8:45 AM EDT Office Visit Podiatry [address] [place], [place] [phone] Ani Linares [address] [place] [address] 6 week follow up diabetic foot Podiatry Comment on above: 6 week follow up diabetic foot Start: 05-25-2024 Hemoglobin A1c measurement HbA1C [facility] Start: 05-13-2024 3 comp foot exam completed DIABETIC FOOT EXAM [facility] Start: 05-13-2024 ANNUAL PCP TEAM CHRONIC DISEASE VISIT ANNUAL PCP TEAM CHRONIC DISEASE VISIT [facility] Start: 05-13-2024 BP CONTROLLED (<130/80) BP CONTROLLED (<130/80) [facility] Start: 05-09-2024 HEMOGLOBIN/HEMATOCRIT HEMOGLOBIN/HEMATOCRIT [facility] Start: 05-09-2024 Hepatitis B surface antibody level LDL CHOLESTEROL [facility] Start: 05-09-2024 SERUM CREATININE SERUM CREATININE [facility] Start: 05-02-2024 End: 05-02-2024 Patient encounter procedure 05/02/2024 9:20 AM EDT Office Visit [facility] [place] [address] [place] [address] Cruz Prado MD [address] [place] [address] IBS issues [facility] [place] Comment on above: IBS issues Start: 04-26-2024 End: 04-26-2024 Patient encounter procedure 04/26/2024 9:45 AM EDT Office Visit Podiatry [address] [place], [place] [phone] Ani Lina[place] [address] [place] [address] maddy foot diabetic follow up Podiatry Comment on above: maddy foot diabetic follow up Start: 02-04-2024 Glaucoma screening Dilated Retinal Exam [facility] Start: 02-04-2024 Hepatitis C antibody, confirmatory test DILATED RETINAL EXAM [facility] Start: 01-22-2024 ANNUAL PCP TEAM CHRONIC DISEASE VISIT ANNUAL PCP TEAM CHRONIC DISEASE VISIT [facility] Start: 01-22-2024 BP CONTROLLED (<130/80) BP CONTROLLED (<130/80) [facility] Start: 01-09-2024 BP CONTROLLED (<130/80) BP CONTROLLED (<130/80) [facility] Start: 12-09-2023 ANNUAL PCP TEAM CHRONIC DISEASE VISIT ANNUAL PCP TEAM CHRONIC DISEASE VISIT [facility] Start: 12-09-2023 BP CONTROLLED (<130/80) BP CONTROLLED (<130/80) [facility] Start: 11-09-2023 Hemoglobin A1c/Hemoglobin.total in Blood HBA1C [facility] Start: 10-31-2023 Depression Assessment Depression Assessment [facility] Start: 10-13-2023 ANNUAL PCP TEAM CHRONIC DISEASE VISIT ANNUAL PCP TEAM CHRONIC DISEASE VISIT [facility] Start: 10-13-2023 BP CONTROLLED (<130/80) BP CONTROLLED (<130/80) [facility] Start: 10-13-2023 COVID-19 VACCINE (3 - Booster for Pfizer series) COVID-19 VACCINE (3 - Booster for Pfizer series) [facility] Comment on above: Postponed from 03/28/2021 (Declined at t his time) Start: 10-13-2023 COVID-19 VACCINE (3 - Pfizer series) COVID-19 VACCINE (3 - Pfizer series) [facility] Comment on above: Postponed from 03/28/2021 (Declined at t his time) Start: 10-13-2023 SHINGRIX VACCINE (1 of 2) SHINGRIX VACCINE (1 of 2) [facility] Comment on above: Postponed from 2003 (Declined at t his time) Start: 09-29-2023 HEMOGLOBIN/HEMATOCRIT HEMOGLOBIN/HEMATOCRIT [facility] Start: 09-29-2023 Hepatitis B screening URINE ALBUMIN:CREATININE RATIO [facility] Start: 09-29-2023 Hepatitis B surface antibody level LDL CHOLESTEROL [facility] Start: 09-29-2023 SERUM CREATININE SERUM CREATININE [facility] Start: 08-21-2023 Colonoscopy COLONOSCOPY [facility] Start: 08-21-2023 COLORECTAL CANCER SCREENING COLORECTAL CANCER SCREENING [facility] Start: 07-09-2023 ANNUAL PCP TEAM CHRONIC DISEASE VISIT ANNUAL PCP TEAM CHRONIC DISEASE VISIT [facility] Start: 07-01-2023 Covid-19 Vaccine ( season) Covid-19 Vaccine ( season) [facility] Start: 07-01-2023 Influenza vaccination INFLUENZA (#1) [facility] Start: 05-26-2023 HEMOGLOBIN/HEMATOCRIT HEMOGLOBIN/HEMATOCRIT [facility] Start: 05-12-2023 ANNUAL PCP TEAM CHRONIC DISEASE VISIT ANNUAL PCP TEAM CHRONIC DISEASE VISIT [facility] Start: 04-02-2023 Hepatitis B screening URINE ALBUMIN:CREATININE RATIO [facility] Start: 04-02-2023 Hepatitis B surface antibody level LDL CHOLESTEROL [facility] Start: 04-02-2023 SERUM CREATININE SERUM CREATININE [facility] Start: 04-01-2023 End: 06-01-2023 Basic metabolic 2000 panel - Serum or Plasma BASIC METABOLIC PNL Lab Routine Controlled type 2 diabetes mellitus with stage 3 chronic kidney disease, without long-term current use of insulin (HCC) Type 2 diabetes mellitus with retinopathy, without long-term current use of insulin, macular edema presence unspecified, unspecified laterality, unspecified retinopathy severity (HCC) Expected: 04/01/2023, Expires: 06/01/2023 [facility] Work Phone: Comment on above: Expected: 04/01/2023, Expires: Start: 04-01-2023 End: 06-01-2023 CBC W Auto Differential panel - Blood CBC + DIFF Lab Routine Controlled type 2 diabetes mellitus with stage 3 chronic kidney disease, without long-term current use of insulin (HCC) Type 2 diabetes mellitus with retinopathy, without long-term current use of insulin, macular edema presence unspecified, unspecified laterality, unspecified retinopathy severity (HCC) Expected: 04/01/2023, Expires: 06/01/2023 [facility] Work Phone: Comment on above: Expected: 04/01/2023, Expires: Start: 04-01-2023 End: 06-01-2023 Hemoglobin A1c in Blood HGB A1C Lab Routine Controlled type 2 diabetes mellitus with stage 3 chronic kidney disease, without long-term current use of insulin (HCC) Type 2 diabetes mellitus with retinopathy, without long-term current use of insulin, macular edema presence unspecified, unspecified laterality, unspecified retinopathy severity (HCC) Expected: 04/01/2023, Expires: 06/01/2023 [facility] Work Phone: Comment on above: Expected: 04/01/2023, Expires: Start: 04-01-2023 End: 06-01-2023 LIPID PANEL, NONFASTING LIPID PANEL, NONFASTING Lab Routine Controlled type 2 diabetes mellitus with stage 3 chronic kidney disease, without long-term current use of insulin (HCC) Type 2 diabetes mellitus with retinopathy, without long-term current use of insulin, macular edema presence unspecified, unspecified laterality, unspecified retinopathy severity (HCC) Essential hypertension, benign Mixed hyperlipidemia Expected: 04/01/2023, Expires: 06/01/2023 [facility] Work Phone: Comment on above: Expected: 04/01/2023, Expires: 3 Start: 03-29-2023 Hemoglobin A1c/Hemoglobin.total in Blood HBA1C [facility] Start: 03-16-2023 ANNUAL PCP TEAM CHRONIC DISEASE VISIT ANNUAL PCP TEAM CHRONIC DISEASE VISIT [facility] Start: 02-02-2023 3 comp foot exam completed DIABETIC FOOT EXAM [facility] Start: 01-05-2023 Hepatitis C antibody, confirmatory test DILATED RETINAL EXAM [facility] Start: 12-30-2022 PNEUMOCOCCAL: 65+ (3 - PPSV23 if available, else PCV20) PNEUMOCOCCAL: 65+ (3 - PPSV23 if available, else PCV20) [facility] Start: 12-30-2022 PNEUMOCOCCAL: 65+ (3 - PPSV23 or PCV20) PNEUMOCOCCAL: 65+ (3 - PPSV23 or PCV20) [facility] Start: 12-30-2022 PNEUMOVAX AGE 65 AND OVER WITH 5YR LOOKBACK (#1) PNEUMOVAX AGE 65 AND OVER WITH 5YR LOOKBACK (#1) [facility] Start: 12-14-2022 End: 12-28-2022 Influenza virus A and B RNA and SARS-CoV-2 (COVID-19) N gene panel - Respiratory specimen by CHRISTA with probe detection [facility] Work Phone: Comment on above: Expected: 12/14/2022, Expires: 3 Start: 12-12-2022 HEMOGLOBIN/HEMATOCRIT HEMOGLOBIN/HEMATOCRIT [facility] Start: 11-06-2022 ANNUAL PCP TEAM CHRONIC DISEASE VISIT ANNUAL PCP TEAM CHRONIC DISEASE VISIT [facility] Start: 11-06-2022 Hepatitis B surface antibody level LDL CHOLESTEROL [facility] Start: 11-06-2022 SERUM CREATININE SERUM CREATININE [facility] Start: 10-31-2022 ADVANCE DIRECTIVE DISCUSSION ADVANCE DIRECTIVE DISCUSSION [facility] Start: 10-31-2022 DEPRESSION ASSESSMENT DEPRESSION ASSESSMENT [facility] Start: 10-02-2022 Hemoglobin A1c/Hemoglobin.total in Blood HBA1C [facility] Start: 08-23-2022 End: 10-23-2022 ALBUMIN/CREAT RATIO RND UR ALBUMIN/CREAT RATIO RND UR Lab Routine Controlled type 2 diabetes mellitus with stage 3 chronic kidney disease, without long-term current use of insulin (HCC) Expected: 08/23/2022, Expires: 10/23/2022 [facility] Work Phone: Comment on above: Expected: 08/23/2022, Expires: 2 Start: 08-23-2022 End: 10-23-2022 CBC W Auto Differential panel - Blood CBC + DIFF Lab Routine Controlled type 2 diabetes mellitus with stage 3 chronic kidney disease, without long-term current use of insulin (HCC) Iron deficiency anemia, unspecified iron deficiency anemia type Expected: 08/23/2022, Expires: 10/23/2022 [facility] Work Phone: Comment on above: Expected: 08/23/2022, Expires: 2 Start: 08-23-2022 End: 10-23-2022 Cobalamin (Vitamin B12) [Mass/volume] in Serum or Plasma VITAMIN B12 BLOOD Lab Routine Gastroesophageal reflux disease with esophagitis without hemorrhage Medication management Expected: 08/23/2022, Expires: 10/23/2022 [facility] Work Phone: Comment on above: Expected: 08/23/2022, Expires: 2 Start: 08-23-2022 End: 10-23-2022 Comprehensive metabolic 2000 panel - Serum or Plasma COMP METABOLIC PANEL Lab Routine Controlled type 2 diabetes mellitus with stage 3 chronic kidney disease, without long-term current use of insulin (HCC) Essential hypertension, benign Mixed hyperlipidemia Type 2 diabetes mellitus with retinopathy, without long-term current use of insulin, macular edema presence unspecified, unspecified laterality, unspecified retinopathy severity (HCC) Expected: 08/23/2022, Expires: 10/23/2022 [facility] Work Phone: Comment on above: Expected: 08/23/2022, Expires: 2 Start: 08-23-2022 End: 10-23-2022 Hemoglobin A1c in Blood HGB A1C Lab Routine Controlled type 2 diabetes mellitus with stage 3 chronic kidney disease, without long-term current use of insulin (HCC) Type 2 diabetes mellitus with retinopathy, without long-term current use of insulin, macular edema presence unspecified, unspecified laterality, unspecified retinopathy severity (HCC) Expected: 08/23/2022, Expires: 10/23/2022 [facility] Work Phone: Comment on above: Expected: 08/23/2022, Expires: 2 Start: 08-23-2022 End: 10-23-2022 Iron and Iron binding capacity panel - Serum or Plasma IRON + TIBC Lab Routine Iron deficiency anemia, unspecified iron deficiency anemia type Expected: 08/23/2022, Expires: 10/23/2022 [facility] Work Phone: Comment on above: Expected: 08/23/2022, Expires: 2 Start: 08-23-2022 End: 10-23-2022 LIPID PANEL, NONFASTING LIPID PANEL, NONFASTING Lab Routine Controlled type 2 diabetes mellitus with stage 3 chronic kidney disease, without long-term current use of insulin (HCC) Essential hypertension, benign Mixed hyperlipidemia Type 2 diabetes mellitus with retinopathy, without long-term current use of insulin, macular edema presence unspecified, unspecified laterality, unspecified retinopathy severity (HCC) Expected: 08/23/2022, Expires: 10/23/2022 [facility] Work Phone: Comment on above: Expected: 08/23/2022, Expires: 2 Start: 08-23-2022 End: 10-23-2022 Magnesium [Mass/volume] in Serum or Plasma MAGNESIUM BLD Lab Routine Gastroesophageal reflux disease with esophagitis without hemorrhage Medication management Expected: 08/23/2022, Expires: 10/23/2022 [facility] Work Phone: Comment on above: Expected: 08/23/2022, Expires: 2 Start: 08-23-2022 End: 10-23-2022 Urinalysis complete panel - Urine URINALYSIS, WITH MICROSCOPIC Lab Routine Controlled type 2 diabetes mellitus with stage 3 chronic kidney disease, without long-term current use of insulin (HCC) Essential hypertension, benign Mixed hyperlipidemia Type 2 diabetes mellitus with retinopathy, without long-term current use of insulin, macular edema presence unspecified, unspecified laterality, unspecified retinopathy severity (HCC) Expected: 08/23/2022, Expires: 10/23/2022 [facility] Work Phone: Comment on above: Expected: 08/23/2022, Expires: 2 Start: 07-08-2022 End: 07-22-2022 Influenza virus A and B RNA and SARS-CoV-2 (COVID-19) N gene panel - Respiratory specimen by CHRISTA with probe detection COVID WITH FLUA+B, ROUTINE Microbiology Routine Sinus congestion Acute upper respiratory infection, unspecified Expected: 07/08/2022, Expires: 07/22/2022 [facility] Work Phone: Comment on above: Expected: 07/08/2022, Expires: 2 Start: 07-01-2022 Influenza vaccination INFLUENZA (#1) [facility] Start: 05-20-2022 SHINGRIX VACCINE (1 of 2) SHINGRIX VACCINE (1 of 2) [facility] Comment on above: Postponed from 2003 (Insurance Cov erage) Start: 05-12-2022 End: 07-12-2022 CBC W Auto Differential panel - Blood CBC + DIFF Lab Routine Burning sensation of foot Numbness and tingling of foot Expected: 05/12/2022, Expires: 07/12/2022 [facility] Work Phone: Comment on above: Expected: 05/12/2022, Expires: 2 Start: 05-12-2022 End: 07-12-2022 Cobalamin (Vitamin B12) [Mass/volume] in Serum or Plasma VITAMIN B12 BLOOD Lab Routine Burning sensation of foot Numbness and tingling of foot Expected: 05/12/2022, Expires: 07/12/2022 [facility] Work Phone: Comment on above: Expected: 05/12/2022, Expires: 2 Start: 05-12-2022 End: 07-12-2022 Folate [Mass/volume] in Serum or Plasma FOLATE SERUM Lab Routine Burning sensation of foot Numbness and tingling of foot Expected: 05/12/2022, Expires: 07/12/2022 [facility] Work Phone: Comment on above: Expected: 05/12/2022, Expires: 2 Start: 05-12-2022 End: 07-12-2022 Thyrotropin [Units/volume] in Serum or Plasma TSH BLD Lab Routine Burning sensation of foot Numbness and tingling of foot Expected: 05/12/2022, Expires: 07/12/2022 [facility] Work Phone: Comment on above: Expected: 05/12/2022, Expires: 2 Start: 05-12-2022 End: 07-12-2022 Thyroxine (T4) free [Mass/volume] in Serum or Plasma T4 FREE/FREE THYROX Lab Routine Burning sensation of foot Numbness and tingling of foot Expected: 05/12/2022, Expires: 07/12/2022 [facility] Work Phone: Comment on above: Expected: 05/12/2022, Expires: 2 Start: 05-06-2022 Hemoglobin A1c/Hemoglobin.total in Blood HBA1C [facility] Start: 03-16-2022 End: 05-16-2022 ALBUMIN/CREAT RATIO RND UR ALBUMIN/CREAT RATIO RND UR Lab Routine Controlled type 2 diabetes mellitus with stage 3 chronic kidney disease, without long-term current use of insulin (HCC) Expected: 03/16/2022, Expires: 05/16/2022 [facility] Work Phone: Comment on above: Expected: 03/16/2022, Expires: 2 Start: 03-16-2022 End: 05-16-2022 Comprehensive metabolic 2000 panel - Serum or Plasma COMP METABOLIC PANEL Lab Routine Essential hypertension, benign Controlled type 2 diabetes mellitus with stage 3 chronic kidney disease, without long-term current use of insulin (HCC) Expected: 03/16/2022, Expires: 05/16/2022 [facility] Work Phone: Comment on above: Expected: 03/16/2022, Expires: 2 Start: 03-16-2022 End: 05-16-2022 Hemoglobin A1c/Hemoglobin.total in Blood HGB A1C Lab Routine Controlled type 2 diabetes mellitus with stage 3 chronic kidney disease, without long-term current use of insulin (HCC) Expected: 03/16/2022, Expires: 05/16/2022 [facility] Work Phone: Comment on above: Expected: 03/16/2022, Expires: 2 Start: 03-16-2022 End: 05-16-2022 LIPID PANEL, NONFASTING LIPID PANEL, NONFASTING Lab Routine Mixed hyperlipidemia Expected: 03/16/2022, Expires: 05/16/2022 [facility] Work Phone: Comment on above: Expected: 03/16/2022, Expires: 2 Start: 03-16-2022 End: 05-16-2022 Urinalysis complete panel - Urine URINALYSIS, WITH MICROSCOPIC Lab Routine Essential hypertension, benign Controlled type 2 diabetes mellitus with stage 3 chronic kidney disease, without long-term current use of insulin (HCC) Expected: 03/16/2022, Expires: 05/16/2022 [facility] Work Phone: Comment on above: Expected: 03/16/2022, Expires: 2 Start: 02-16-2022 Hepatitis B screening URINE ALBUMIN:CREATININE RATIO [facility] Start: 02-03-2022 Hepatitis C antibody, confirmatory test DILATED RETINAL EXAM [facility] Start: 02-02-2022 3 comp foot exam completed DIABETIC FOOT EXAM [facility] Start: 10-31-2021 ADVANCE DIRECTIVE DISCUSSION ADVANCE DIRECTIVE DISCUSSION [facility] Start: 10-31-2021 DEPRESSION ASSESSMENT DEPRESSION ASSESSMENT [facility] Start: 07-03-2021 COVID-19 VACCINE (3 - Booster for Pfizer series) COVID-19 VACCINE (3 - Booster for Pfizer series) [facility] Start: 03-28-2021 COVID-19 VACCINE (3 - Booster for Pfizer series) COVID-19 VACCINE (3 - Booster for Pfizer series) [facility] Start: 2013 Hepatitis B Vaccine (1 of 3 - Risk 3-dose series) Hepatitis B Vaccine (1 of 3 - Risk 3-dose series) [facility] Start: 2013 RSV Vaccine (1 - 1-dose 60+ series) RSV Vaccine (1 - 1-dose 60+ series) [facility] Start: 2013 RSV Vaccine (1 - Risk 60-74 years 1-dose series) RSV Vaccine (1 - Risk 60-74 years 1-dose series) [facility] Start: 2003 SHINGRIX VACCINE (1 of 2) SHINGRIX VACCINE (1 of 2) [facility] Start: 1998 COLOGUARD (FIT-DNA) COLOGUARD (FIT-DNA) [facility] Start: [address] COLONOGRAPHY [facility] Start: 1998 FECAL OCCULT BLOOD FECAL OCCULT BLOOD [facility] Start: 1998 Screening for malignant neoplasm of colon [facility] Start: 1998 SIGMOIDOSCOPY SIGMOIDOSCOPY [facility] Start: 1971 BP CONTROLLED (<130/80) BP CONTROLLED (<130/80) [facility] Start: 1971 Depression Screening Depression Screening [facility] Patient Education [facility] Work Phone: Patient referral [facility] Work Phone: End: 03-16-2023 Polysomnogram POLYSOMNOGRAM (PSG) Procedures Routine Hypersomnia Fatigue, unspecified type Snoring 1 Occurrences starting 03/16/2022 until 03/16/2023 [facility] Work Phone: Comment on above: 1 Occurrences starting 03/16/2022 until 03/16/2023 PT PLAN OF CARE CERTIFICATION PT PLAN OF CARE CERTIFICATION Procedures Routine Pain in both lower extremities Greater trochanteric bursitis of both hips Acute midline low back pain without sciatica Muscle weakness of lower extremity Ordered: 01/11/2023 [facility] Work Phone: Comment on above: Ordered: 01/11/2023 PT PLAN OF CARE CERTIFICATION PT PLAN OF CARE CERTIFICATION Procedures Routine Pain in both lower extremities Greater trochanteric bursitis of both hips Acute midline low back pain without sciatica Muscle weakness of lower extremity Ordered: 02/16/2023 [facility] Work Phone: Comment on above: Ordered: 02/16/2023 End: 05-12-2023 PVR LEG W/EXC [facility] PVR LEG W/EXC [facility] Vascular Lab Routine Burning sensation of foot Numbness and tingling of foot Pain in both lower extremities Foot pain, bilateral 1 Occurrences starting 05/12/2022 until 05/12/2023 [facility] Work Phone: Comment on above: 1 Occurrences starting 05/12/2022 until 05/12/2023 SURGICAL PATHOLOGY SURGICAL PATH OLOGY Lab Routine Abdominal pain, unspecified abdominal location History of colon polyps Matthew's esophagus with dysplasia Release Upon Ordering for 1 Occurrences starting 06/01/2022 [facility] Work Phone: Comment on above: Release Upon Ordering for 1 Occurrences starting 06/01/2022 End: 10-13-2023 US LEG VEIN DVT [facility] US LEG VEIN DVT [facility] Vascular Lab Routine Pain in both lower extremities 1 Occurrences starting 10/13/2022 until 10/13/2023 [facility] Work Phone: Comment on above: 1 Occurrences starting 10/13/2022 until 10/13/2023 End: 02-28-2026 XR Foot - right AP and Lateral and oblique XR FOOT GENERAL 3V AP/LAT/OBL RIGHT Radiology Routine Arthritis of joint of toe Callus of foot 1 Occurrences starting 01/29/2025 until 02/28/2026 [facility] Work Phone: Comment on above: 1 Occurrences starting 01/29/2025 until 02/28/2026 [facility] Immunizations Immunization Date Immunization Notes Care Provider Jordan klein 03-19-2025 zoster vaccine recombinant Cruz Prado MD Work Phone: [facility] 01-16-2025 zoster vaccine recombinant Cruz Prado MD Work Phone: [facility] 09-14-2024 influenza, seasonal, injectable, preservative free Dr. Cruz Prado MD Work Phone: [facility] 09-14-2024 influenza virus vacc ine, unspecified formulation Ani Linares Work Phone: [facility] 08-17-2024 Hepatitis B vaccine (recombinant), CpG adjuvanted Dr. Cruz Prado MD Work Phone: [facility] 07-10-2024 influenza, high dose seasonal, preservative-free Cruz Prado MD Work Phone: [facility] 07-09-2024 Hepatitis B vaccine (recombinant), CpG adjuvanted Anette Arreoal PA-C Work Phone: [facility] 08-04-2023 influenza (HD-IIV4) vaccine, age 65+ yr, high dose, quadrivalent, PF (FLUZONE HIGH-DOSE) Anette Arreola PA-C Work Phone: [facility] 08-04-2023 influenza virus vacc ine, unspecified formulation Cruz Prado MD Work Phone: [facility] 01-21-2023 pneumococcal (PCV20) vaccine, 20 valent (PREVNAR 20) Milind Denis MA [facility] 10-13-2022 influenza, high-dose , quadrivalent vaccine (FLUZONE HIGH DOSE QUADRIVALENT) Cruz Prado MD Work Phone: [facility] 11-06-2021 influenza, high-dose , quadrivalent vaccine (FLUZONE HIGH DOSE QUADRIVALENT) Cruz Prado MD Work Phone: [facility] 01-31-2021 COVID-19 vaccine, ag e 12+ yr (PFIZER-BIONTECH - PURPLE TOP) Cruz Prado MD Work Phone: [facility] 01-10-2021 COVID-19 vaccine, ag e 12+ yr (PFIZER-BIONTECH - PURPLE TOP) Cruz Prado MD Work Phone: [facility] 07-31-2020 influenza, seasonal, injectable Cruz Prado MD Work Phone: [facility] 08-22-2019 influenza, high dose seasonal, preservative-free Cruz Prado MD Work Phone: [facility] 04-13-2019 pneumococcal conjuga te vaccine, 13 valent Cruz Prado MD Work Phone: [facility] 09-05-2018 hepatitis A vaccine, adult dosage Cruz Prado MD Work Phone: [facility] 08-17-2018 influenza, injectabl e, quadrivalent, contains preservative Cruz Prado MD Work Phone: [facility] 12-30-2017 pneumococcal polysaccharide vaccine, 23 valent Cruz Prado MD Work Phone: [facility] 09-28-2017 influenza, injectabl e, quadrivalent, contains preservative Cruz Prado MD Work Phone: [facility] 03-13-2017 tetanus toxoid, redu mireya diphtheria toxoid, and acellular pertussis vaccine, adsorbed Cruz Prado MD Work Phone: [facility] 09-03-2015 influenza, seasonal, injectable Cruz Prado MD Work Phone: [facility] 09-11-2009 novel influenza-H1N1 -09, preservative-free, injectable Cruz Prado MD Work Phone: [facility] Payers Date Payer Category Payer Self-pay [id number] 2024 Private Health Insurance [id number] 2024 Unknown [id number] 2020 Unknown MMO MMO [employer] [id number] 2020-Present [phone] [address] [place] [address] PPO [id number] 2020 Unknown [id number] 2018 Medicare [id number] 1998 Unknown Unknown [id number] 62 Unknown [id number] 62 Unknown [id number] 62 Unknown [id number] 62 Unknown [id number] 62 Unknown [id number] 62 Unknown [id number] 62 Unknown [id number] 62 Unknown [id number] 62 Unknown [id number] 62 Unknown [id number] 62 Unknown [id number] 62 Unknown [id number] 62 Social History Date Type Detail Facility Start: 03-23-2016 End: 05-28-2025 Tobacco smoking status NHIS Ex-smoker [facility] Start: 03-23-2016 End: 07-08-2022 Tobacco use and exposure Smokeless tobacco non-user [facility] Start: 12-14-2021 End: 05-27-2025 Alcohol intake Current drinker of alcohol (finding) [facility] Start: 07-06-2018 History SDOH Alcohol Comment seldom beer [facility] Start: 10-02-2018 End: 07-08-2022 Tobacco Comment quit around 1983 [facility] Start: 1955 Sex Assigned At Not on file [facility] Start: 09-18-2020 End: 07-19-2022 Exposure to SARS-CoV-2 (event) Not sure [facility] Start: 02-03-2022 End: 06-20-2023 Tobacco smoking status NHIS Unknown if ever smoked [facility] Start: 1955 Sex Assigned At Male W [facility] History of tobacco use Current smoker [facility] Work Phone: Start: 08-21-2018 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) [facility] Start: 03-02-2023 End: 05-13-2023 History of Social function [facility] Work Phone: Start: 03-02-2023 End: 05-13-2023 Tobacco use panel [facility] Work Phone: Adult Depression Scr eening Assessment 0 [facility] Work Phone: Has the [employer], [employer], or [employer] threatened to shut off services in your home in past 12Mo No [facility] Do you belong to any clubs or organizations such as restoration groups, unions, fraternal or athletic groups, or school groups? Yes [facility] Are you now , , , , never or living with a partner? [facility] How often to you hav e a drink containing alcohol? Never [facility] Do you feel stress - tense, restless, nervous, or anxious, or unable to sleep at night because your mind is troubled all the time - these days [OSQ] To some extent [facility] (I/We) worried whejosue er (my/our) food would run out before (I/we) got money to buy more. Never true [facility] Medical Equipment Procedure Code Equipment Code Equipment Origin al Text Equipment Identifier Dates [id number], [id number], [id number], [id number], [id number], [id number], [id number] Start: 12-05-2019 End: 10-29-2024 Comment on above: Test blood sugar(s) 2 times daily. Dx: Other DM Code E11.22 Insulin: Yes 1 Each as needed. Fo r Intercavernal Injections Blood Sugar Diagnostic (Onetouch Verio Test Strips) strip Start: 04-29-2025 Blood Sugar Diagnostic (Onetouch Verio Test Strips) strip Start: 04-29-2025 Blood Sugar Diagnostic (Onetouch Verio Test Strips) strip Start: 04-29-2025 Functional Status Date Assessment Result Facility 02-03-2019 Are you deaf, or do you have serious difficulty hearing No 02/03/2019 12:35 PM EDT Julissa Farrell RN No [facility] 02-03-2019 Are you blind, or do you have serious difficulty seeing, even when wearing glasses No 02/03/2019 12:35 PM EDT Julissa Farrell, PATEL [facility] 02-03-2019 Do you have serious difficulty walking or climbing stairs No 02/03/2019 12:35 PM EDT Julissa Farrell RN [facility] 02-03-2019 Do you have difficul ty dressing or bathing No 02/03/2019 12:35 PM EDT Julissa Farrell, PATEL [facility] 02-03-2019 Because of a physica l, mental, or emotional condition, do you have difficulty doing errands alone such as visiting a physician's office or shopping No 02/03/2019 12:35 PM Julissa Lei RN [facility] Mental Status Date Assessment Result Facility 02-03-2019 Because of a physica l, mental, or emotional condition, do you have serious difficulty concentrating, remembering, or making decisions No 02/03/2019 12:35 PM EDJulissa Dominguez RN No [facility] Clinical Notes 12-15-2018 to 08-05-2025 Note Date & Type Note Facility 08-05-2025 Note HNO ID: [id number] Author: CRUZ PRADO MD Service: ? Author Type: Physician Type: Progress Notes Filed: 08/05/2025 17:06 Note Text: Chief Complaint Patient presents with: F/U 6 Month HPI Dar Rose is a 69 year old male who presents here today for a routine follow up. Patient with hx of HTN, hyperlipidemia, SVT, DM2, CKD, Matthew's melanoma, and those as below. 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 He also notes occasional mild pedal edema, which he describes as sock johnson that resolve by morning. He denies any recent fevers, lumps or swelling in the neck, wheezing, dyspnea, hemoptysis, chest pain, palpitations, or leg swelling. Reagan is currently taking Nexium for heartburn, which is well-controlled. He is also on Neurontin for neuropathy, which he takes at night. While he does not believe it resolves his neuropathy, he notes some improvement. He uses compression sleeves on his feet at night for additional relief. He reports that his feet are very touchy and cannot be covered by blankets due to neuropathy. Reagan is on trazodone for sleep, which he reports helps, but he still experiences poor sleep quality. He has not been tested for sleep apnea and is not currently interested in a sleep study. Reagan received cataract surgery and reports significant improvement in vision, stating he can see 100% better out of the affected eye. However, he continues to experience floaters, which he finds bothersome. He denies frequent headaches, syncope, seizures, or tremors. Reagan is on Ozempic, which was recently increased to 1 mg. He reports constipation as a side effect, for which he has been using Miralax with good effect. He denies any other adverse effects from Ozempic. He also reports occasional dysuria, which he attributes to fatigue, and notes frequent urination. He denies hematuria. Reagan experiences occasional symptoms of hypoglycemia and carries glucose tablets for management. He denies frequent headaches, syncope, seizures, or tremors. He also reports a lack of energy, which he attributes to multiple episodes of COVID-19, having had it three times. Reagan has a history of prostate removal 6-7 years ago for BPH and denies any current issues related to it. He also reports a recent insect bite, for which he applied Benadryl cream. He notes a history of anaphylactic reactions to bee stings but not to wasp stings. Past medical history, appointments, medications, allergies reviewed. 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 07/06/2018 Basal cell carcinoma 12/02/2021 Bilateral hip pain 01/21/2023 BPH (benign prostatic hyperplasia) s/p removal Callus of foot 09/22/2023 Seeing podiatry Chronic insomnia 02/24/2019 Controlled type 2 diabetes mellitus with stage 3 chronic kidney disease, without long-term current use of insulin ([facility]) 02/24/2019 Decreased libido 01/30/2018 Degenerative retinal drusen of both eyes 05/30/2015 Diabetic eye exam (HCC) 03/18/2022 Last done 01/05/22 Non-Proliferative Diabetic Retinopathy mild [facility] (erectile dysfunction) 05/20/2021 Essential hypertension, benign 06/06/2006 Ex-smoker 05/20/2021 Started age 16, up to 2 PPD quit age 21 Fatigue 08/05/2025 Gastroesophageal reflux disease with esophagitis without hemorrhage 05/20/2021 Herniated lumbar intervertebral disc History of BPH s/p removal History of depression Iron deficiency anemia 06/21/2020 Irritable bowel syndrome with both constipation and diarrhea 07/31/2021 Leg cramps 01/30/2018 Living will on file at physician's office 10/13/2022 DPA: catherine () Low testosterone in male 06/21/2020 Lumbar radiculopathy 02/24/2019 Lumbar spinal stenosis 05/18/2023 MRI 02/2023- [facility] Malignant melanoma of torso excluding breast (HCC) 02/11/2020 Metabolic dysfunction-associated steatohepatitis (MASH) 10/17/2024 US with elstography 09/2024 was F2-F3, seeing ? 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 Along with HS's and body aches: Has FMLA for Posterior vitreous detachment of left eye 08/31/2016 Posterior vitreous detachment of right eye 09/09/2017 Renal cyst, right 08/10/2021 Simple, benign US 07/2021 Retinopathy 03/19/2022 Mild B/l Rotator cuff tear, left Senile nuclear scl (more content not included)... [facility] 07-30-2025 Note HNO ID: [id number] Author: LUREDS HERNANDEZ MA Service: ? Author Type: Flavoring Maker Type: Progress Notes Filed: 07/30/2025 08:56 Note Text: Scan on 07/29/2025 4:38 PM by Provider, External, PA-C: [facility] 07-29-2025 Progress note [facility] 07-29-2025 Progress note Note Date/Time July 29, 2025 3:14pm [facility] [address] [place] [address] OFFICE VISIT Date of Service: 07/29/25 MR#: [id number] Acct: [id number] Name: DAR ROSE Rep #: [id number] 1955 Provider: AKOSUA Zambrano Age/Sex: 69/M [place] [facility] [place] Status: Signed Intake Vital Signs 04/29/25 09:03 05/28/25 09:07 07/29/25 14:40 Height 5 ft 10 in 5 ft 10 in 5 ft 10 in Weight: 185 lb 186 lb 188 lb 4 oz BMI 26.5 26.6 27.0 BP 145/81 H 118/75 130/78 H Blood Pressure Location Lt brachial Rt brachial Position Sitting Respiration 16 Pulse 63 69 66 Pulse Source Monitor Monitor Temp 98.1 F Temp Source Temporal Pulse Oximetry (%) 98 95 97 Oxygen Delivery Method room air room air room air Intake Visit Reasons: 3 M FU Chief Complaint: f/u diabetes Is patient in pain?: No Allergies bee venom protein (honey bee) Allergy (Verified 07/29/25 14:44) Anaphylaxis Medications ?Medication ?Instructions ?Recorded ?Confirmed ?Type epinephrine 0.3 mg/0.3 mL 0.3 ml subcut ONCE PRN anaph ylaxis 10/20/22 07/29/25 History injection, auto-injector fluticasone propionate 50 2 spray intranasal DAILY PRN nasal 10/20/22 07/29/25 History mcg/actuation nasal congestion spray,suspension amlodipine 10 mg tablet 10 mg PO DAILY #90 tabs 11/0 05/2307/29/25 Rx carvedilol 25 mg tablet 25 mg PO BID #180 tabs 09/0607/29/25 Rx losartan 100 mg tablet 100 mg PO DAILY #90 tabs 05/2307/29/25 Rx atorvastatin 10 mg tablet (Lipitor) 10 mg PO QHS 09/2407/29/25 History baclofen 10 mg tablet 10 mg PO QHS PRN pain 07/29/25 History esomeprazole magnesium 40 mg 40 mg PO DAILY #90 caps 1 11/24/23 07/29/25 Rx capsule,delayed release dicyclomine 10 mg capsule 10 mg PO QHS 11/15/24 History blood sugar diagnostic (OneTouch #100 ea 04/29/25/07/25 Rx Verio test strips) blood-glucose meter (OneTouch #1 ea 04/29/25 07/29/25 Rx Verio Reflect kit) trazodone 50 mg tablet 25 mg PO QHS 04/29/25 History semaglutide 1 mg/dose (4 mg/3 mL) 1 mg (0.75 mL) subcu t QWEEK #3 mL 07/29/25 07/29/25 Rx subcutaneous pen injector (Ozempic) Have you fallen in the past year?: No [facility] Medical History (Updated 05/28/25 @ 09:21 by AKOSUA Durant) Wears glasses Cardiology follow-up encounter Anxiety COVID-19 virus detected (07/06/21) Dyslipidemia Paroxysmal supraventricular tachycardia Type 2 diabetes mellitus Essential hypertension Superficial spreading malignant melanoma of skin Depression BPH (benign prostatic hyperplasia) Back problem GERD (gastroesophageal reflux disease) Surgical History History of radiofrequency ablation procedure for cardiac arrhythmia (2013) History of colonoscopy History of prostatectomy History of tonsillectomy History of repair of left rotator cuff Family History Mother Cancer lung Father Alzheimer disease Son Ulcerative colitis Social History Smoking Status: Former smoker how long ago did patient quit smokin years ago alcohol intake: current alcohol intake frequency: holidays/special occasions only substance use type: does not use caffeine: Yes Type: coffee HPI HPI Chief Complaint: f/u diabetes Details: DAR ROSE, is a 69 M who presents to the office today for evaluation and management of diabetes. A1C today is 6.1%, consistent with 04/29/25. He has gained 3 lbs since that time,this is upsetting to him. Currently taking Ozempic 0.5 mg qweek- tolerating well. He admits that he has indulged in more processed carbs than typical, he was alsoon vacation. BP is stable. Currently taking amlodipine 5m once daily, losartan 50 mg once daily, and carvedilol 25 mg BID. He has CKD and microalbuminuria. He was unable to tolerate SGLT2. He is taking a daily statin. He has labs ordered through the [facility], he intends to have these done within the upcoming weeks. Denies any acute concerns. ROS Const Constitutional: Positive for fatigue and weight change (gain) ENT ENT: No dizziness/vertigo Cardio Cardiology: No chest pain at rest, chest pain with exertion, shortness of breathor palpitations Skin Skin: No wounds Endo Endocrine: Positive for fatigue and weight change (gain) Exam Const General: cooperative, healthy appearing, comfortable and no acute distress Nutritional Appearance: overweight Orientation: alert, awake and oriented x3 HENMT Head: normal to inspection Ears: hearing grossly normal bilaterally Nose: external nose normal Face and sinus: normal facial exam Eyes General: appearance normal, both eyes and all related structures Alignment and Position: alignment normal Sclera: sclerae normal Neck Neck: normal visual inspection Chest Chest palpation & inspection: normal inspection of the chest Resp Effort & Inspection: normal respiratory effort, able to speak in complete sentences, symmetric chest movement, normal respiratory pattern, no audible wheezes and no cough Auscultation: Bilateral: Clear to Auscultation Cardio Rate: regular rate Rhythm: regular rhythm Heart Sounds: S1 normal and S2 normal GI Inspection: normal to inspection Musc Cervical Spine: normal cervical lordosis Thoracic/Lumbar Spine: thoracic and lumbar spine normal to inspection Skin General: no rashes or lesions noted Lesions: no lesions Rashes: no rashes Trauma: no lacerations or abrasions Wounds: no wounds Neuro General: patient alert, patient awake and patient oriented x3 Cognition: normal cognition Speech: speech normal Gait: normal gait Extrem General: normal to inspection and no pedal edema Psych Appearance: grossly normal Mental Status: mental status grossly normal Mood: congruent mood Affect: normal affect Speech and Movement: speech and movement normal Attitude: cooperative Thought Process: normal Thought Content: normal Judgment: judgment good Results POC A1C POC A1C 6.1 % Last Edit by Blake Shrestha RN on 07/29/25 14:47 Clinical Quality Measures Falls Risk Screening/Assistive Devices Have you fallen in the past year?: No Assessment and Plan Assessment and Plan (1) Type 2 diabetes mellitus: Status: Chronic Qualifiers: Diabetes mellitus 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 insulin use: without 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 use Diabetesmellitus complication status: without complication Qualified Code(s): E11.9 - Type 2 diabetes mellitus without complications Plan: Chronic- controlled. Longitudinal care provided. G2211. I reviewed with the patient the risk of developing and worsening of diabetes complications including retinopathy, neuropathy, nephropathy, heart attack, stroke, amputation, and sudden . Diabetes education provided. A1C at goal: <7.5%. Increase Ozempic to 1 mg qweek- reviewed potential side effects associated with increase in dose, emphasized importance of food volume reduction. Avoid processed carbohydrates. Request that upcoming labs be sent to our practice. The patient was counseled regarding the importance of foot care including daily visual and tactile inspection. The patient was instructed not to go barefoot andto always wear socks with their shoes. Follow up in 3 months. (2) Essential hypertension: Status: Chronic Plan: Chronic- controlled. Continue amlodipine 5 mg once daily. Continue losartan 50 mg once daily. Continue carvedilol 25 mg BID. GLP1 likely aiding in control. Avoid dietary sodium. Will continue to monitor. (3) CKD (chronic kidney disease): Status: Chronic Qualifiers: Chronic kidney disease stage: stage 3 (moderate) Chronic kidney diseasestage 3 subtype: stage 3a (GFR 45-59) Qualified Code(s): N18.31 - Chronic kidney disease, stage 3a Plan: Chronic- stability unknown. Request upcoming labs be sent to our office. Assure adequate hydration. Avoid NSAIDs. Continue GLP1. Maintain glycemic control. Maintain BP control. (4) Microalbuminuria due to type 2 diabetes mellitus: Status: Chronic Plan: Chronic- stability unknown. Plan same as #3. (5) Dyslipidemia: Status: Chronic Plan: Chronic- stability unknown. Request upcoming labs be sent to our office. Continue atorvastatin 10 mg once daily. Avoid processed carbohydrates, increase vegetable intake, choose lean cuts of meat. (6) Overweight: Status: Chronic Plan: Chronic- worsening. Encouraged a diet that contains high quality carbohydrates rich in fiber. I have spent [26] minutes today reviewing labs, records and history. Time includes coordinating care, interpretation of tests, discussion with patient's other health care providers via telephone. This also includes time I spent with the patient for exam, treatment plan and education as well as documenting clinical information. Orders: Orders POC A1C Today E11.9 - Type 2 diabetes mellitus without complications Medications: New semaglutide (Ozempic) 1 mg (0.75 mL) subcut QWEEK 3 mL 4RF E11.9 - Type 2 diabetes mellitus without complications, N18.31 - Chronic kidney disease, stage 3a Discontinued semaglutide (Ozempic) Discontinued Reason: Order Changed 0.5 mg (0.736 mL) subcut TU 3 mL 5RF E11.9 - Type 2 diabetes mellitus without complications Coding Level of Care Code Off vis,est,level 3 Extra Time Spent Extra Time Spent Extra Time Spent: G2211 Diagnoses Type 2 diabetes mellitus without complication, without long-term current use of insulin E11.9 Diabetes mellitus mcc insulin use: without mcc use Diabetes mellitus complication status: without complication Essential hypertension I10 Stage 3a chronic kidney disease N18.31 Chronic kidney disease stage: stage 3 (moderate) Chronic kidney disease stage 3 subtype: stage 3a (GFR 45-59) Microalbuminuria due to type 2 diabetes mellitus E11.29; R80.9 Dyslipidemia E78.5 Overweight E66.3 Additional Codes Extra Time Spent - Extra Time Spent: G2211 (G2211) 07/29/25 1626 <Electronically signed by Whit GAYTANC> Date _ Whit Zambrano [employer] Cosigner Signature: Date (if applicable) CC: Dr. Cruz Prado MD ~ [facility] Work Phone: [phone]) 743-553808-01-2025 Telephone encounter Note* Telephone Encounter - Raul Domingo LPN - 05/31/2025 1:42 PM EDT Spoke with pt and advised him word for word of Dr Prado's message. Pt verbalizes understanding. Raul Domingo LPN [facility]08-01-2025 Miscellaneous Notes* Telephone Encounter - Raul Domingo LPN - 05/31/2025 1:42 PM EDT Spoke with pt and advised him word for word of Dr Prado's message. Pt verbalizes understanding. Raul Domingo LPN * Telephone Encounter - Cruz Prado MD - 05/30/2025 8:36 PM EDT Let patient know both med refills sent in. However remind him that he was advised with the last change not to make changes in his meds on his own with discussing with me first. 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 The following approved medication requests have been transmitted electronically. Requested Prescriptions Signed Prescriptions Disp Refills traZODone (DESYREL) 50 mg tablet 90 tablet 1 Sig: Take 1 tablet by mouth daily at bedtime. Authorizing Provider: CRUZ PRADO gabapentin (NEURONTIN) 100 mg capsule 180 capsule 1 Sig: Take 2 capsules by mouth daily at bedtime for 180 days. Take gabapentin 100 mg in the evening before bed. Authorizing Provider: CRUZ PRADO semaglutide (OZEMPIC) 0.25 mg or 0.5 mg (2 mg/3 mL) pen Sig: Inject 0.5 mg subcutaneously one time a week. Per Curly Mireles Authorizing Provider: CRUZ PRADO MD * Telephone Encounter - Nely Soriano LPN - 05/30/2025 1:07 PM EDT Please see message from patient. Prescription Refill Information The patient has been identified by name and date of : Yes Caregiver verified no other encounters exist for this prescription request: Yes Caregiver confirmed with patient/requestor that no other refills are due, in the near future, with this provider at this time: Yes The last office visit in the department: 01/16/25 Does the patient have a future office visit with this provider/department: Yes 07/23/25 Requested Prescriptions Pending Prescriptions Disp Refills traZODone (DESYREL) 50 mg tablet 45 tablet 1 Sig: Take by mouth daily at bedtime. gabapentin (NEURONTIN) 100 mg capsule Sig: Take 2 capsules by mouth daily at bedtime. Take gabapentin 100 mg in the evening before bed. Nely Soriano LPN May 30, 2025 1:08 PM * Telephone Encounter - Dre Hilldi - 05/30/2025 12:03 PM EDT Reagan is calling Cruz Prado MD today with concern regarding the change in lower dose of Trazodone 50 mg tablet that was reduced to one half tab daily is not working so patient has been taking a whole 50 mg tablet and is now running out. Please advise if provider will switch back to the Trazodone 50 mg tablet once daily at bedtime? Second medication patient asking too switch back to 200 mg gabapentin as the 100 mg is not effective. Please send new RX for the 200 mg gabapentin if provider agrees. Patient does have one week left of that medication Pharmacy is [facility] please send new Rx's to that pharmacy Patient has been identified by name and birthdate. Duration of symptoms: N/A Person calling: self Call patient at: on cell [phone] (home) [phone] (cell) Was an appointment scheduled: No Closing statement: Results or non-symptom based questions: Thank you for calling [facility], your call will be returned within the next business day. Rain Anguianoc documented in this encounter[facility] Telephone encounter Note * Telephone Encounter - Cruz Prado MD - 05/30/2025 8:36 PM EDT Let patient know both med refills sent in. However remind him that he was advised with the last change not to make changes in his meds on his own with discussing with me first. 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 The following approved medication requests have been transmitted electronically. Requested Prescriptions Signed Prescriptions Disp Refills traZODone (DESYREL) 50 mg tablet 90 tablet 1 Sig: Take 1 tablet by mouth daily at bedtime. Authorizing Provider: CRUZ PRADO gabapentin (NEURONTIN) 100 mg capsule 180 capsule 1 Sig: Take 2 capsules by mouth daily at bedtime for 180 days. Take gabapentin 100 mg in the evening before bed. Authorizing Provider: CRUZ PRADO semaglutide (OZEMPIC) 0.25 mg or 0.5 mg (2 mg/3 mL) pen Sig: Inject 0.5 mg subcutaneously one time a week. Per Curly Mireles Authorizing Provider: CRUZ PRADO MD [facility]07-31-2025 Telephone encounter Note* Telephone Encounter - Nely Soriano LPN - 05/30/2025 1:07 PM EDT Please see message from patient. Prescription Refill Information The patient has been identified by name and date of : Yes Caregiver verified no other encounters exist for this prescription request: Yes Caregiver confirmed with patient/requestor that no other refills are due, in the near future, with this provider at this time: Yes The last office visit in the department: 01/16/25 Does the patient have a future office visit with this provider/department: Yes 07/23/25 Requested Prescriptions Pending Prescriptions Disp Refills traZODone (DESYREL) 50 mg tablet 45 tablet 1 Sig: Take by mouth daily at bedtime. gabapentin (NEURONTIN) 100 mg capsule Sig: Take 2 capsules by mouth daily at bedtime. Take gabapentin 100 mg in the evening before bed. Nely Soriano LPN May 30, 2025 1:08 PM [facility]07-31-2025 Telephone encounter Note* Telephone Encounter - Rain Hill - 05/30/2025 12:03 PM EDT Reagan is calling Cruz Prado MD today with concern regarding the change in lower dose of Trazodone 50 mg tablet that was reduced to one half tab daily is not working so patient has been taking a whole 50 mg tablet and is now running out. Please advise if provider will switch back to the Trazodone 50 mg tablet once daily at bedtime? Second medication patient asking too switch back to 200 mg gabapentin as the 100 mg is not effective. Please send new RX for the 200 mg gabapentin if provider agrees. Patient does have one week left of that medication Pharmacy is [facility] please send new Rx's to that pharmacy Patient has been identified by name and birthdate. Duration of symptoms: N/A Person calling: self Call patient at: on cell [phone] (home) [phone] (cell) Was an appointment scheduled: No Closing statement: Results or non-symptom based questions: Thank you for calling [facility], your call will be returned within the next business day. Rain Booth [facility]07-28-2025 NoteHNO ID: [id number] Author: ANI LINARES, ? Service: ? Author Type: Physician Type: Progress Notes Filed: 05/27/2025 12:41 Note Text: Subjective Reagan Rose is a 69-year-old male with a history of chronic neuropathy, presenting for evaluation of a chronic callus on the medial aspect of the right hallux interphalangeal joint, a protrusion on the lateral aspect of the right foot, and a recent injury to the left third toe. Reagan reports a chronic callus on the medial aspect of the right hallux interphalangeal joint, which he has been managing by applying a corn remover pad and filing it down periodically. He also notes a protrusion on the lateral aspect of the right foot, which he describes as a bump that has been present for an unspecified duration. He denies any significant pain associated with this protrusion but mentions that it feels slightly more swollen than usual. Two days ago, Reagan sustained an injury to the left third toe after accidentally walking into a TV console. He initially thought he might have fractured the toe but now believes it is not broken. He reports bruising but denies significant pain and notes that he can still move the toe. He inquires about ingrowing toenails of b/l hallux Skin: (+) callus medial right great toe, (+) bruising left third toe Musculoskeletal: (+) right lateral foot swelling, (-) foot pain 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 07/06/2018 Basal cell carcinoma 12/02/2021 Bilateral hip pain 01/21/2023 BPH (benign prostatic hyperplasia) s/p removal Callus of foot 09/22/2023 Seeing podiatry Chronic insomnia 02/24/2019 Controlled type 2 diabetes mellitus with stage 3 chronic kidney disease, without long-term current use of insulin (HCC) 02/24/2019 Decreased libido 01/30/2018 Degenerative retinal drusen of both eyes 05/30/2015 Diabetic eye exam ([facility]) 03/18/2022 Last done 01/05/22 Non-Proliferative Diabetic Retinopathy mild [facility] (erectile dysfunction) 05/20/2021 Essential hypertension, benign 06/06/2006 Ex-smoker 05/20/2021 Started age 16, up to 2 PPD quit age 21 Gastroesophageal reflux disease with esophagitis without hemorrhage 05/20/2021 Herniated lumbar intervertebral disc History of BPH s/p removal History of depression Iron deficiency anemia 06/21/2020 Irritable bowel syndrome with both constipation and diarrhea 07/31/2021 Leg cramps 01/30/2018 Living will on file at physician's office 10/13/2022 DPA: catherine () Low testosterone in male 06/21/2020 Lumbar radiculopathy 02/24/2019 Lumbar spinal stenosis 05/18/2023 MRI 02/2023- [facility] Malignant melanoma of torso excluding breast ([facility]) 02/11/2020 Metabolic dysfunction-associated steatohepatitis (MASH) 10/17/2024 US with elstography 09/2024 was F2-F3, seeing ? Mixed hyperlipidemia 03/20/2013 Nuclear sclerotic cataract of both eyes 05/30/2015 Pain in both lower extremities 10/13/2022 Peripheral retinal degeneration, paving stone, bilateral 09/09/2017 Peripheral sensory neuropathy due to type 2 diabetes mellitus ([facility]) 08/30/2022 Post-COVID chronic fatigue 09/22/2023 Along with HS's and body aches: Has FMLA for Posterior vitreous detachment of left eye 08/31/2016 Posterior vitreous detachment of right eye 09/09/2017 Renal cyst, right 08/10/2021 Simple, benign US 07/2021 Retinopathy 03/19/2022 Mild B/l Rotator cuff tear, left Senile nuclear sclerosis 05/17/2017 Senile nuclear sclerosis, bilateral 09/09/2017 Stage 3a chronic kidney disease ([facility]) 07/12/2024 SVT (supraventricular tachycardia) ([facility]) 05/20/2021 Treated with Ablation: 2014 Tinnitus of both ears 12/30/2023 Type 2 diabetes mellitus with retinopathy, without long-term current use of insulin ([facility]) 09/09/2017 Uncontrolled type 2 diabetes mellitus with stage 3 chronic kidney disease, without long-term current use of insulin 01/30/2018 Vitreous syneresis of both eyes 05/30/2015 Well adult exam 08/23/2022 Current Outpatient Medications Medication Sig Dispense Refill sodium chloride (SALINE NASAL) 0.65 % nasal spray Use 1 spray in the nose two times a day. 100 mL 2 azelastine 0.1% nasal spray Use 1 spray in each nostril two times a day. 30 mL 2 fluticasone (FLONASE ALLERGY RELIEF) 50 mcg/actuation nasal spray Use 1 spray in each nostril two times a day. 16 g 2 gabapentin (NEURONTIN) 100 mg capsule Take gabapentin 100 mg in the evening before bed. (Patient taking differently: Take 200 mg by mouth daily at bedtime. Take gabapentin 100 mg in the evening before bed.) traZODone (DESYREL) 50 mg tablet Take 0.5 tablets by mouth daily at bedtime. 45 tablet 1 ferrous sulfate 325 mg (65 mg i (more content not included)...[facility]07-28-2025 History of Present illness Narrative* Ani Linares - 05/27/2025 12:40 PM EDT Subjective Reagan Rose is a 69-year-old male with a history of chronic neuropathy, presenting for evaluation of a chronic callus on the medial aspect of the right hallux interphalangeal joint, a protrusion on the lateral aspect of the right foot, and a recent injury to the left third toe. Reagan reports a chronic callus on the medial aspect of the right hallux interphalangeal joint, which he has been managing by applying a corn remover pad and filing it down periodically. He also notes aprotrusion on the lateral aspect of the right foot, which he describes as a bump that has been present for an unspecified duration. He denies any significant pain associated with this protrusion but mentions that it feels slightly more swollen than usual. Two days ago, Reagan sustained an injury to the left third toe after accidentally walking into a TV console. He initially thought he might have fractured the toe but now believes it is not broken. He reports bruising but denies significant pain and notes that he can still move the toe. He inquires about ingrowing toenails of b/l hallux Skin: (+) callus medial right great toe, (+) bruising left third toe Musculoskeletal: (+) right lateral foot swelling, (-) foot pain 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 07/06/2018 Basal cell carcinoma 12/02/2021 Bilateral hip pain 01/21/2023 BPH (benign prostatic hyperplasia) s/p removal Callus of foot 09/22/2023 Seeing podiatry Chronic insomnia 02/24/2019 Controlled type 2 diabetes mellitus with stage 3 chronic kidney disease, without long-term current use of insulin ([facility]) 02/24/2019 Decreased libido 01/30/2018 Degenerative retinal drusen of both eyes 05/30/2015 Diabetic eye exam (HCC) 03/18/2022 Last done 01/05/22 Non-Proliferative Diabetic Retinopathy mild [facility] (erectile dysfunction) 05/20/2021 Essential hypertension, benign 06/06/2006 Ex-smoker 05/20/2021 Started age 16, up to 1 PPD quit age 21 Gastroesophageal reflux disease with esophagitis without hemorrhage 05/20/2021 Herniated lumbar intervertebral disc History of BPH s/p removal History of depression Iron deficiency anemia 06/21/2020 Irritable bowel syndrome with both constipation and diarrhea 07/31/2021 Leg cramps 01/30/2018 Living will on file at physician's office 10/13/2022 DPA: catherine () Low testosterone in male 06/21/2020 Lumbar radiculopathy 02/24/2019 Lumbar spinal stenosis 05/18/2023 MRI 02/2023- [facility] Malignant melanoma of torso excluding breast (HCC) 02/11/2020 Metabolic dysfunction-associated steatohepatitis (MASH) 10/17/2024 US with elstography 09/2024 was F2-F3, seeing ? Mixed hyperlipidemia 03/20/2013 Nuclear sclerotic cataract of both eyes 05/30/2015 Pain in both lower extremities 10/13/2022 Peripheral retinal degeneration, paving stone, bilateral 09/09/2017 Peripheral sensory neuropathy due to type 2 diabetes mellitus ([facility]) 08/30/2022 Post-COVID chronic fatigue 09/22/2023 Along with HS's and body aches: Has FMLA for Posterior vitreous detachment of left eye 08/31/2016 Posterior vitreous detachment of right eye 09/09/2017 Renal cyst, right 08/10/2021 Simple, benign US 07/2021 Retinopathy 03/19/2022 Mild B/l Rotator cuff tear, left Senile nuclear sclerosis 05/17/2017 Senile nuclear sclerosis, bilateral 09/09/2017 Stage 3a chronic kidney disease ([facility]) 07/12/2024 SVT (supraventricular tachycardia) ([facility]) 05/20/2021 Treated with Ablation: 2013 Tinnitus of both ears 12/30/2023 Type 2 diabetes mellitus with retinopathy, without long-term current use of insulin ([facility]) 09/09/2017 Uncontrolled type 2 diabetes mellitus with stage 3 chronic kidney disease, without long-term current use of insulin 01/30/2018 Vitreous syneresis of both eyes 05/30/2015 Well adult exam 08/23/2022 Current Outpatient Medications Medication Sig Dispense Refill sodium chloride (SALINE NASAL) 0.65 % nasal spray Use 1 spray in the nose two times a day. 100 mL 2 azelastine 0.1% nasal spray Use 1 spray in each nostril two times a day. 30 mL 2 fluticasone (FLONASE ALLERGY RELIEF) 50 mcg/actuation nasal spray Use 1 spray in each nostril two times a day. 16 g 2 gabapentin (NEURONTIN) 100 mg capsule Take gabapentin 100 mg in the evening before bed. (Patient taking differently: Take 200 mg by mouth daily at bedtime. Take gabapentin 100 mg in the evening before bed.) traZODone (DESYREL) 50 mg tablet Take 0.5 tablets by mouth daily at bedtime. 45 tablet 1 ferrous sulfate 325 mg (65 mg iron) tablet Take 1 tablet by mouth every other day. 45 tablet 3 atorvastatin (LIPITOR) 10 mg tablet Take 1 tablet by mouth daily at bedtime. For cholesterol. 90 tablet 1 esomeprazole (NEXIUM) 40 mg capsule Take 1 capsule by mouth two times a day. 180 capsule 1 semaglutide (OZEMPIC) 0.25 mg or 0.5 mg (2 mg/3 mL) pen Inject 0.25 mg subcutaneously one time a week. (Patient taking differently: Inject 0.5 mg subcutaneously one time a week.) 1 Each 0 blood sugar diagnostic (BLOOD GLUCOSE TEST) test strip Test blood sugar(s) 2 times daily. Dx: OtherDM Code E11.22 Insulin: No 200 Strip 4 Lancets Test blood sugar(s) 2 times daily. Dx: Other DM Code E11.22 Insulin: No 100 Each 11 dicyclomine (BENTYL) 10 mg capsule Take 1 capsule by mouth before meals and at bedtime. PRN 30 capsule 5 EPINEPHrine (AUVI-Q) 0.3 mg/0.3 mL auto-injector Inject 0.3 mL intramuscularly as needed. 1 Each 1 docusate sodium (COLACE) 100 mg capsule Take 1 capsule by mouth two times a day as needed for constipation. 60 capsule 5 losartan (COZAAR) 100 mg tablet Take 1 tablet by mouth once daily. 90 tablet 1 carvedilol (COREG) 25 mg tablet Take 1 tablet by mouth twice daily. Per Cardio, Dr. Schneider amLODIPine (NORVASC) 10 mg tablet Take 1 tablet by mouth once daily. Per Cardio, Dr. Schneider empagliflozin (JARDIANCE) 25 mg tablet Take 1 tablet by mouth daily with breakfast. Per Endo: Dr. Mireles (Patient not taking: Reported on 05/27/2025) ondansetron orally disintegrating (ZOFRAN ODT) 4 mg disintegrating tablet Take 1 tablet by mouth every 6 hours as needed for nausea/vomiting. (Patient not taking: Reported on 05/27/2025) 30 tablet 0 No current facility-administered medications for this visit. Family History Problem Relation Age of Onset other (cancer, lung) Mother Alzheimer's Disease Father No Known Problems Sister Heart Attack Brother 69 3 vessle CABG No Known Problems Maternal Grandmother No Known Problems Maternal Grandfather No Known Problems Paternal Grandmother No Known Problems Paternal Grandfather Objective There were no vitals taken for this visit. - Cardiovascular: DP and PT pulses palpable bilaterally; capillary refill <5 seconds; skin temperature warm to cool from proximal to distal. - Skin: Small callus on the medial aspect of the right hallux interphalangeal joint; bruising alongthe proximal medial nail fold of the left third toe; nail plate clear with a small collection of dry blood, no lifting of the nail plate, no signs of infection. - Neurological: Protective sensation intact bilaterally; vibratory sensation diminished in the lower extremities. -Musculoskeletal: + swelling along right 5th metatarsal base consistent with likely bursitis. bruising of left 3rd toe Imaging: (2019) Right Foot X-ray: Prominent bony flare at the medial aspect of the right hallux. Assessment & Plan 1. Diabetic polyneuropathy associated with type 2 diabetes mellitus (HCC) (E11.42) Chronic neuropathy with diminished vibratory sensation in the lower extremities. Protective sensation intact bilaterally. - Emphasized importance of avoiding barefoot walking and wearing well-fitting, wider shoes. - Provided gel insert for additional foot support. 2. 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 - Continue regular callus debridement. - Advised against using gel corn pads due to moisture retention; recommended gentle filing with a nail file. - callus was reduced today with 15 blade and dremmel as courtesy - continue with gel inserts. - discussed exostectomy as an option. patient is going to defer. 3. Callus of foot (L84) Small callus noted on the medial aspect of the right hallux interphalangeal joint, likely due to chronic pressure and friction. - Debrided callus during the visit. - Advised regular filing to prevent buildup and potential ulceration. 4. Bursitis of right foot (M77.51) Mild swelling at the styloid process of the fifth metatarsal, consistent with bursitis. No significant pain reported. - Monitor for changes or increased swelling. - Recommended wearing supportive shoes ([place], [place], [employer]ics). - powerstep inserts dispensed 5. Contusion of third toe of left foot, initial encounter (S90.122A) Bruising along the proximal medial nail fold with a small collection of dry blood. No lifting of the nail plate or signs of infection. - Monitor for signs of infection or worsening symptoms. - Offered to order an X-ray to rule out fracture; patient to decide based on symptom progression. 6. ingrowing toenail. no signs of infection nor any pain today. patient is considering partial nailmatrixectomy follow-up in 3 months Recording using ambient SwiftStack software for draft documentation of the visit was discussed with the patient/authorized client care representative; all questions welcomed and answered. Patient/authorized client care representative agreed to proceed Ani Linares DPM * Izabela Garcia RN - 05/27/2025 11:24 AM EDT Patient presents with: Right Foot - Established Patient, Follow Up Left Foot - Established Patient, Pain AMB ROOMING INTAKE FLOWSHEET DATA Pain Pain Level: 8 (when wearing shoes) Pain Location: Foot-Right Patient presents for right foot follow up. Has corn to right great toe, has been using at home treatments. States that he did not get the xrays that were ordered previously. Also states that he stubbed his left 3rd toe 2 days ago, some pain, bruising noted to toe tip. ROBSON 01/29/25 documented in this encounterAv[facility] Instructions* Patient Instructions* Ani Linares - 05/27/2025 12:01 PM EDT Diabetes Foot Care Instructions When you have diabetes, proper foot care is very important. Poor foot care may lead to amputation of a foot or leg. As a person with diabetes, you are more vulnerable to foot problems, because diabetes can damage your nerves and reduce blood flow to your feet. Here are some diabetes foot care tips to follow: Wash and Dry Your Feet Daily Use mild soaps Use warm water Pat your skin dry; do not rub. Thoroughly dry your feet. After washing, use lotion on your feet to prevent cracking. Do not put lotion between your toes. Examine Your Feet Each Day Check the tops and bottoms of your feet. Have someone else look at your feet if you cannot see them. Check for dry, cracked skin. Look for blisters, cuts, scratches, or other sores. Check for redness, increased warmth, or tenderness when touching any area of your feet. Check for ingrown toenails, corns, and calluses. If you get a blister or sore from your shoes, do not pop it. Apply a bandage and wear a differentpair of shoes. Take Care of Your Toenails Cut toenails after bathing, when they are soft. Cut toenails straight across and smooth with a nail file. Avoid cutting into the corners of toes. Do not cut cuticles. If you have neuropathy (or decreased sensation in your feet) a air pumper should always cut your toenails. Be Careful When Exercising Walk and exercise in comfortable shoes. Do not exercise when you have open sores on your feet. Protect Your Feet With Shoes and Socks Never go barefoot. Always protect your feet by wearing shoes or hard-soled slippers or footwear. Avoid shoes with high heels and pointed toes. Avoid shoes that expose your toes or heels (such as open-toed shoes or sandals). These types of shoes increase your risk for injury and potential infections. Try on new footwear with the type of socks you usually wear. Do not wear new shoes for more than an hour at a time. Change your socks daily. Look and feel inside your shoes before putting them on to make sure there are no foreign objects orrough areas. Avoid tight socks. Wear natural-fiber socks (cotton, wool, or a cotton-wool blend). Wear special shoes if your health care provider recommends them. Wear shoes/boots that will protect your feet from various weather conditions (cold, moisture, etc.). Make sure your shoes fit properly. If you have neuropathy (nerve damage), you may not notice that your shoes are too tight. Perform the footwear test described below. Footwear Test Use this simple test to see if your shoes fit correctly: Stand on a piece of paper. (Make sure you are standing and not sitting, because your foot changes shape when you stand.) Trace the outline of your foot. Trace the outline of your shoe. Compare the tracings: Is the shoe too narrow? Is your foot crammed into the shoe? The shoe should be at least 1/2 inch longer than your longest toe and as wide as your foot. Proper Shoe Choices The following types of shoes are best for people with diabetes Closed toes and heels Leather uppers without a seam inside At least 1/2 inch extra space at the end of your longest toe Inside of shoe should be soft with no rough areas Outer sole should be made of stiff material Shoes should be at least as wide as your feet Tips for Foot Care in Diabetes Don't wait to treat a minor foot problem if you have diabetes. Follow your health care provider's guidelines and first aid guidelines. Report foot injuries and infections to your health care provider immediately. Check water temperature with your elbow, not your foot. Do not use a heating pad on your feet. Do not cross your legs. Do not self-treat your corns, calluses, or other foot problems. Go to your health care provider or air pumper to treat these conditions. Powerstep Original Full length. Can purchase at [facility] [employer] and boots,shoes and more here in [place], [employer] in [place] or [place]. Also can find in [place] in [facility]. Powersteps can also be purchased online, starting around $45.00 If you have a metatarsal or dancer pad for your feet apply the pad directly to the insole so you can interchange between your shoes. Find a shoe with a removable insole and take this out and replace with your powerstep insole. Always bring powersteps with you when shopping for shoes so that you can make sure that everything fits well together documented in this encounterAvita [facility]07-28-[facility]25 NoteHNO ID: [id number] Author: IZABELA GARCIA RN Service: ? Author Type: Registered Nurse Type: Progress Notes Filed: 05/27/2025 12:41 Note Text: Patient presents with: Right Foot - Established Patient, Follow Up Left Foot - Established Patient, Pain AMB ROOMING INTAKE FLOWSHEET DATA Pain Pain Level: 8 (when wearing shoes) Pain Location: Foot-Right Patient presents for right foot follow up. Has corn to right great toe, has been using at home treatments. States that he did not get the xrays that were ordered previously. Also states that he stubbed his left 3rd toe 2 days ago, some pain, bruising noted to toe tip. ROBSON 01/29/25[facility]06[facility] Evaluation note* Diagnosis Onset Date Resolution Status Admit Date CKD (chronic kidney disease) chronic April 29, 2025 9:01am Dyslipidemia chronic April 29, 025 9:01am Essential hypertension chronic Ju ne 5 9:01am Microalbuminuria due to type 2 diabetes mellitus chronic April 29 9:01am Overweight chronic April 29 9:01am Type 2 diabetes mellitus chronic April 29, 2025 9:01am GERD (gastroesophageal reflu x disease) acute May 28, 2025 8:42am Metabolic dysfunction-associated steatotic liver disease (MASLD) acute May 28, 2025 8:42am Submucosal lesion of stomach acute May 28, 2025 8:42am CKD (chronic kidney disease) chronic July 29, 2025 2:38pm Dyslipidemia chronic July 292024 2:38pm Essential hypertension chronic Se ptember 2024 2:38pm Microalbuminuria due to type 2 diabetes mellitus chronic July 2:38pm Overweight chronic July 2:38pm Type 2 diabetes mellitus chronic July 29, 2025 2:38pm [place] [facility] Work Phone: [phone] 380-341206-02-2025 NoteHNO ID: [id number] Author: LOREN VALLECILLO APRN.SOCIAL MEDIA MANAGER Service: ? Author Type: Nurse Practitioner Type: Progress Notes Filed: 04/01/2025 08:40 Note Text: Patient presents with: Cough: Cough, sinus, congestion and WYNN x 2 weeks 69 year old male presents with two weeks of symptoms including dry cough, facial pain, and facial tenderness and are gradually worsening since that time. PMH: Sinusitis Seasonal allergies Review of Systems Constitutional: Positive for fever and malaise/fatigue. Negative for chills. HENT: Positive for sinus pain. Eyes: Negative for pain, discharge and redness. Respiratory: Positive for cough. Negative for shortness of breath and wheezing. Cardiovascular: Negative for chest pain, palpitations and leg swelling. Gastrointestinal: Negative for diarrhea, heartburn, nausea and vomiting. Genitourinary: Negative for dysuria, frequency and urgency. Musculoskeletal: Negative for myalgias. Skin: Negative for rash. Neurological: Negative for headaches. Physical Exam Vitals reviewed. Constitutional: General: He is not in acute distress. Appearance: Normal appearance. He is not ill-appearing or toxic-appearing. HENT: Head: Normocephalic and atraumatic. Right Ear: Hearing, ear canal and external ear normal. Left Ear: Hearing, ear canal and external ear normal. Nose: Mucosal edema present. Right Turbinates: Swollen and pale. Left Turbinates: Swollen and pale. Right Sinus: Maxillary sinus tenderness and frontal sinus tenderness present. Left Sinus: Maxillary sinus tenderness and frontal sinus tenderness present. Mouth/Throat: Mouth: Mucous membranes are moist. Pharynx: Oropharynx is clear. No oropharyngeal exudate or posterior oropharyngeal erythema. Eyes: Extraocular Movements: Extraocular movements intact. Conjunctiva/sclera: Conjunctivae normal. Pupils: Pupils are equal, round, and reactive to light. Cardiovascular: Rate and Rhythm: Normal rate and regular rhythm. Pulses: Normal pulses. Heart sounds: Normal heart sounds. No murmur heard. Pulmonary: Effort: Pulmonary effort is normal. No respiratory distress. Breath sounds: Normal breath sounds. No wheezing or rhonchi. Abdominal: General: Bowel sounds are normal. Palpations: Abdomen is soft. Musculoskeletal: Cervical back: Normal range of motion and neck supple. No tenderness. Lymphadenopathy: Cervical: No cervical adenopathy. Skin: General: Skin is warm and dry. Capillary Refill: Capillary refill takes less than 2 seconds. Neurological: General: No focal deficit present. Mental Status: He is alert and oriented to person, place, and time. ASSESSMENT: (J01.40) Acute non-recurrent pansinusitis (primary encounter diagnosis) Comment: Plan: doxycycline monohydrate (MONODOX) 100 mg capsule (J30.89) Seasonal allergic rhinitis due to other allergic trigger Plan: sodium chloride (SALINE NASAL) 0.65 % nasal spray, azelastine 0.1% nasal spray, fluticasone (FLONASE ALLERGY RELIEF) 50 mcg/actuation nasal spray (R05.1) Acute cough Plan: benzonatate (TESSALON PERLE) 100 mg capsule Patient given educational materials - see patient instructions. Discussed use, benefit, and side effects of prescribed medications. All patient questions answered. Pt voiced understanding and agrees with treatment plan. Patient advised to follow up with PCP within one week, or sooner if symptoms worsen or persist. If symptoms become severe- GO TO ED. Patient agreeable with treatment plan. Loren Vallecillo APRN.SOCIAL MEDIA MANAGER Subjective The patient is a 69-year-old male with a history of recurrent sinusitis and HTN, presenting with worsening sinus congestion and ear fullness over melissa past 2 weeks. Sinus Congestion: - Worsening sinus congestion x2 weeks. - Experiences sinus issues approximately 3 times a year. - Uses nasal spray PRN when unable to breathe through the nose. - Currently using an OTC decongestant. - Denies sore throat, significant facial pressure, or dyspnea. - Reports low-grade fever and inability to breathe through the nose. - Wakes up at 0300 and is unable to return to sleep due to nasal congestion. - Denies hemoptysis, nausea, emesis, diarrhea, or urinary issues. 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 Ear Fullness: - Chronic ear fullness, exacerbated by changes in elevation and weather. - Reports dizziness associated with ear fullness. - Denies otalgia. HTN: - Cautious with decongestant use due to HTN and medications. - Reports dizziness as a side effect of medications. GERD: - Managed with Nexium, taken daily in the morning on an empty stomach. - Denies being a breakfast yas. Constitutional: (+) fever Head: (+) facial pain, (+) facial pressure Ears/Nose/Mouth/Throat: (+) ear fullness, (+) nasal congestion, (-) odynophagia Respiratory: (+) cough, (-) shortness of breath, (-) h (more content not included)...[facility]06-[facility] History of Present illness Narrative* Loren Vallecillo APRN.[facility] - 04/01/2025 8:23 AM EDT Patient presents with: Cough: Cough, sinus, congestion and WYNN x 2 weeks 69 year old male presents with two weeks of symptoms including dry cough, facial pain, and facial tenderness and are gradually worsening since that time. PMH: Sinusitis Seasonal allergies Review of Systems Constitutional: Positive for fever and malaise/fatigue. Negative for chills. HENT: Positive for sinus pain. Eyes: Negative for pain, discharge and redness. Respiratory: Positive for cough. Negative for shortness of breath and wheezing. Cardiovascular: Negative for chest pain, palpitations and leg swelling. Gastrointestinal: Negative for diarrhea, heartburn, nausea and vomiting. Genitourinary: Negative for dysuria, frequency and urgency. Musculoskeletal: Negative for myalgias. Skin: Negative for rash. Neurological: Negative for headaches. Physical Exam Vitals reviewed. Constitutional: General: He is not in acute distress. Appearance: Normal appearance. He is not ill-appearing or toxic-appearing. HENT: Head: Normocephalic and atraumatic. Right Ear: Hearing, ear canal and external ear normal. Left Ear: Hearing, ear canal and external ear normal. Nose: Mucosal edema present. Right Turbinates: Swollen and pale. Left Turbinates: Swollen and pale. Right Sinus: Maxillary sinus tenderness and frontal sinus tenderness present. Left Sinus: Maxillary sinus tenderness and frontal sinus tenderness present. Mouth/Throat: Mouth: Mucous membranes are moist. Pharynx: Oropharynx is clear. No oropharyngeal exudate or posterior oropharyngeal erythema. Eyes: Extraocular Movements: Extraocular movements intact. Conjunctiva/sclera: Conjunctivae normal. Pupils: Pupils are equal, round, and reactive to light. Cardiovascular: Rate and Rhythm: Normal rate and regular rhythm. Pulses: Normal pulses. Heart sounds: Normal heart sounds. No murmur heard. Pulmonary: Effort: Pulmonary effort is normal. No respiratory distress. Breath sounds: Normal breath sounds. No wheezing or rhonchi. Abdominal: General: Bowel sounds are normal. Palpations: Abdomen is soft. Musculoskeletal: Cervical back: Normal range of motion and neck supple. No tenderness. Lymphadenopathy: Cervical: No cervical adenopathy. Skin: General: Skin is warm and dry. Capillary Refill: Capillary refill takes less than 2 seconds. Neurological: General: No focal deficit present. Mental Status: He is alert and oriented to person, place, and time. ASSESSMENT: (J01.40) Acute non-recurrent pansinusitis (primary encounter diagnosis) Comment: Plan: doxycycline monohydrate (MONODOX) 100 mg capsule (J30.89) Seasonal allergic rhinitis due to other allergic trigger Plan: sodium chloride (SALINE NASAL) 0.65 % nasal spray, azelastine 0.1% nasal spray, fluticasone (FLONASE ALLERGY RELIEF) 50 mcg/actuation nasal spray (R05.1) Acute cough Plan: benzonatate (TESSALON PERLE) 100 mg capsule Patient given educational materials - see patient instructions. Discussed use, benefit, and side effects of prescribed medications. All patient questions answered. Pt voiced understanding and agrees with treatment plan. Patient advised to follow up with PCP within one week, or sooner if symptoms worsen or persist. If symptoms become severe- GO TO ED. Patient agreeable with treatment plan. Loren Vallecillo APRN.SOCIAL MEDIA MANAGER Subjective The patient is a 69-year-old male with a history of recurrent sinusitis and HTN, presenting with worsening sinus congestion and ear fullness over melissa past 2 weeks. Sinus Congestion: - Worsening sinus congestion x2 weeks. - Experiences sinus issues approximately 3 times a year. - Uses nasal spray PRN when unable to breathe through the nose. - Currently using an OTC decongestant. - Denies sore throat, significant facial pressure, or dyspnea. - Reports low-grade fever and inability to breathe through the nose. - Wakes up at 0300 and is unable to return to sleep due to nasal congestion. - Denies hemoptysis, nausea, emesis, diarrhea, or urinary issues. 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 Ear Fullness: - Chronic ear fullness, exacerbated by changes in elevation and weather. - Reports dizziness associated with ear fullness. - Denies otalgia. HTN: - Cautious with decongestant use due to HTN and medications. - Reports dizziness as a side effect of medications. GERD: - Managed with Nexium, taken daily in the morning on an empty stomach. - Denies being a breakfast yas. Constitutional: (+) fever Head: (+) facial pain, (+) facial pressure Ears/Nose/Mouth/Throat: (+) ear fullness, (+) nasal congestion, (-) odynophagia Respiratory: (+) cough, (-) shortness of breath, (-) hemoptysis Gastrointestinal: (+) abdominal discomfort/gurgling, (-) nausea, (-) vomiting, (-) diarrhea Genitourinary: (-) dysuria Neurological: (+) dizziness Psychiatric: (+) insomnia Objective Blood pressure 122/78, pulse 60, temperature 36.2 C (97.2 F), temperature source Tympanic, resp. rate 16, weight 84.2 kg (185 lb 10 oz), SpO2 98%. General: No acute distress. HEENT: Nasal congestion; ears appear full. Resp: No wheezing or crackles. Assessment & Plan 1. Bacterial sinusitis (J32.9) 2. Acute non-recurrent pansinusitis (J01.40) - Recurrent sinusitis episodes, approximately three times annually; current episode has persisted for over two weeks with worsening symptoms. - Symptoms include nasal congestion, otalgia, and low-grade fever; no odynophagia, facial pressure,or chest pain reported. - Prescribed Doxycycline 100 mg orally twice daily for 7 days; advised to take with food to minimize gastrointestinal discomfort. - Initiated saline nasal spray twice daily to maintain mucosal hydration and reduce congestion. - Prescribed Astelin nasal spray, one spray in each nostril twice daily. - Prescribed Flonase nasal spray, one spray in each nostril twice daily. - Provided education on proper nasal spray technique: tilt head forward, spray, hold for 60 seconds, then blow. - Prescriptions sent to [facility]. 3. Seasonal allergic rhinitis due to other allergic trigger (J30.89) - Initiated Astelin nasal spray, one spray in each nostril twice daily. - Initiated Flonase nasal spray, one spray in each nostril twice daily. - Provided education on regular use of nasal sprays to reduce mucosal inflammation and prevent future episodes. - Prescriptions sent to [facility]. 4. Acute cough (R05.1) - Prescribed Tessalon Perles 100 mg orally three times daily as needed for cough suppression. - Prescription sent to [facility]. Recording using Vitriflex software for draft documentation of the visit was discussed with the patient/authorized client care representative; all questions welcomed and answered. Patient/authorized client care representative agreed to proceed documented in this encounterAv[facility] Instructions* Patient Instructions* Loren Vallecillo APRN.CNP - 04/01/2025 8:23 AM EDT Images from the original note were not included. Adult Sinusitis Patient Education What is Sinusitis? Sinusitis [[id number]] is inflammation of the sinuses or swelling of the lining of the sinus cavity or nose. During an infection the sinuses become blocked with fluid causing swelling of the lining of the sinuses. Symptoms: (viral and bacterial infections) Stuffy nose Runny nose Postnasal drip Fever Toothache Headache Tiredness Cough Sore throat Face and head pressure and or pain Common causes: 98% of sinus infections are viral caused by viruses. Risk Factors of Sinusitis Include: Allergies, air pollution, indoor humidity and outdoor temperature changes, andstructural changes inthe nose may contribute to sinus pain, pressure and congestion. When to get help? Temperature greater than 100.4 F Symptoms lasting more than 10 days or worsening symptoms greater than 7-10 days. If you do not improve or worsen after a course of antibiotics, you should be re-examined. Diagnosis and Treatment: Your healthcare provider will ask a number of questions about your symptoms and how long they have occurred. If symptoms of sinusitis persist greater than 10 days, it is possible you have a bacterial sinus infection and an antibiotic is prescribed. If it is viral, antibiotics will not help. You may be instructed to take [id number] medications for symptoms. including fever reducers acetaminophen or ibuprofen, nasal saline spray, cough and cold preparations and decongestants as prescribed by the physician, nurse practitioner or physician seo assistant. Self-Care and Prevention: Rest Fluids for hydration Good hand washing Humidifier Avoid smoking and exposure to second hand smoke Avoid sick contacts [facility] Telephone encounter Note * Telephone Encounter - Milind Denis MA - 03/29/2025 10:19 AM EDT Patient notified and voiced understanding. Milind Denis MA [facility]05-30[facility] Miscellaneous Notes* Telephone Encounter - Milind Denis MA - 03/29/2025 10:19 AM EDT Patient notified and voiced understanding. Milind Denis MA * Telephone Encounter - Cruz Prado MD - 03/29/2025 8:40 AM EDT So let patient know per our last office visit on 01/16/2025 I have he did not like the fogginess he was getting from the trazodone. He was instructed to stop the trazodone before bed and start gabapentin 100 mg before bed for a week and the go to taking 2 100 mg tabs before bed. I see no interactionbetween now and then that we discussed any issues with the gabapentin and a discission was made to cut back on the gabapentin 100 mg to one before bed and to re-start the Trazodone 50 mg at 1/2 a tab. Patient's are not supposed to make medication changes on their own without discussing it with their provider first. I adjusted the gabapentin order in his chart to one before bed. I sent in a script for trazodone 50mg 1/2 a tab before bed since there is no 25 mg dosage. The following approved medication requests have been transmitted electronically. Requested Prescriptions Signed Prescriptions Disp Refills gabapentin (NEURONTIN) 100 mg capsule Sig: Take gabapentin 100 mg in the evening before bed. Authorizing Provider: CRUZ PRADO traZODone (DESYREL) 50 mg tablet 45 tablet 1 Sig: Take 0.5 tablets by mouth daily at bedtime. Authorizing Provider: CRUZ PRADO MD * Telephone Encounter - Izabela Skelton RN - 03/28/2025 7:02 PM EDT Pt called and is notified of providers message. Pt states he didn't stop taking them. He states he is only taking 100 mg of the Gabapentin in the evening and 25 mg of the Trazodone. Pt states he is cutting the Trazodone pills in half, he said he doesn't know if they come in 25 mg. Izabela Skelton RN * Telephone Encounter - Cruz Prado MD - 03/28/2025 3:30 PM EDT Let patient know that with stopping the gabapentin his neuropathy will most likely increase again. I also have that he stopped the trazodone due to feeling to tired the next day. * Telephone Encounter - Raul Domingo LPN - 03/28/2025 2:33 PM EDT Please see message below. ROBSON 01/16/25 NOV 07/23/25 * Telephone Encounter - Irma Schmid - 03/28/2025 2:01 PM EDT Patient states that he uses 100 mg of gabapentin at night, but it makes him too sleepy during the day, so he is requesting the trazodonexw to be reinstated. * Telephone Encounter - Irma Schmid - 03/28/2025 1:56 PM EDT Prescription Refill Information The patient has been identified by name and date of : Yes Caregiver verified no other encounters exist for this prescription request: Yes Caregiver confirmed with patient/requestor that no other refills are due, in the near future, with this provider at this time: Yes The last office visit in the department: 01-16-25 Does the patient have a future office visit with this provider/department: Yes Requested prescription Trazodone 50 mg tablet 1 tablet daily 90 tablets. Pharmacy has been updated in chart [facility] Irma Collier March 28, 2025 1:59 PM documented in this encounter[facility] Telephone encounter Note * Telephone Encounter - Cruz Prado MD - 03/29/2025 8:40 AM EDT So let patient know per our last office visit on 01/16/2025 I have he did not like the fogginess he was getting from the trazodone. He was instructed to stop the trazodone before bed and start gabapentin 100 mg before bed for a week and the go to taking 2 100 mg tabs before bed. I see no interactionbetween now and then that we discussed any issues with the gabapentin and a discission was made to cut back on the gabapentin 100 mg to one before bed and to re-start the Trazodone 50 mg at 1/2 a tab. Patient's are not supposed to make medication changes on their own without discussing it with their provider first. I adjusted the gabapentin order in his chart to one before bed. I sent in a script for trazodone 50mg 1/2 a tab before bed since there is no 25 mg dosage. The following approved medication requests have been transmitted electronically. Requested Prescriptions Signed Prescriptions Disp Refills gabapentin (NEURONTIN) 100 mg capsule Sig: Take gabapentin 100 mg in the evening before bed. Authorizing Provider: CRUZ PRADO traZODone (DESYREL) 50 mg tablet 45 tablet 1 Sig: Take 0.5 tablets by mouth daily at bedtime. Authorizing Provider: CRUZ PRADO MD [facility]05-29-[facility] Telephone encounter Note* Telephone Encounter - Izabela Skelton RN - 03/28/2025 7:02 PM EDT Pt called and is notified of providers message. Pt states he didn't stop taking them. He states he is only taking 100 mg of the Gabapentin in the evening and 25 mg of the Trazodone. Pt states he is cutting the Trazodone pills in half, he said he doesn't know if they come in 25 mg. Izabela Skelton RN [facility]05-29-[facility] Telephone encounter Note* Telephone Encounter - Cruz Prado MD - 03/28/2025 3:30 PM EDT Let patient know that with stopping the gabapentin his neuropathy will most likely increase again. I also have that he stopped the trazodone due to feeling to tired the next day. [facility]05-[facility] Telephone encounter Note* Telephone Encounter - Raul Domingo LPN - 03/28/2025 2:33 PM EDT Please see message below. ROBSON 01/16/25 NOV 07/23/25 [facility]05-29-[facility] Telephone encounter Note* Telephone Encounter - Irma Schmid - 03/28/2025 2:01 PM EDT Patient states that he uses 100 mg of gabapentin at night, but it makes him too sleepy during the day, so he is requesting the trazodonexw to be reinstated. T [facility] Work Phone: [phone] Telephone encounter Note* Telephone Encounter - Irma Schmid - 03/28/2025 1:56 PM EDT Prescription Refill Information The patient has been identified by name and date of : Yes Caregiver verified no other encounters exist for this prescription request: Yes Caregiver confirmed with patient/requestor that no other refills are due, in the near future, with this provider at this time: Yes The last office visit in the department: 01-16-25 Does the patient have a future office visit with this provider/department: Yes Requested prescription Trazodone 50 mg tablet 1 tablet daily 90 tablets. Pharmacy has been updated in [facility] Irma Collier March 28, 2025 1:59 PM [facility]05-[facility]25 NoteHNO ID: [id number] Author: ?, ?, ? Service: ? Author Type: LICENSED NURSE Type: Progress Notes Filed: 03/19/2025 10:25 Note Text: Patient presents for Shingrix vaccine. Denies any problems at this time. Tolerated injection well. Yessica Smith [facility]04-21-2025 NoteHNO ID: [id number] Author: ASIM DENIS APRN.SOCIAL MEDIA MANAGER Service: ? Author Type: Nurse Practitioner Type: Progress Notes Filed: 02/18/2025 09:06 Note Text: [facility] Subjective Dar Rose is a 69 year old male. Patient presents with: Sinus Problem: sinus pressure, drainage, left ear and jaw pain x 2 weeks Patient came in with complaints of left-sided ear pain sinus pressure and congestion for about 2 weeks. Said he also has a little bit of tooth pain on the left side.. Denies any shortness of breath. Denies any other symptoms. Patient says he usually does get sinus infections. The history is provided by the patient. No language arts teacher was used. Sinus Problem Associated symptoms include congestion. Review of Systems Constitutional: Negative. HENT: Positive for congestion, ear pain and sinus pressure. Objective BP 102/60 Pulse 78 Temp 36.1 ?C (96.9 ?F) Resp 16 Wt 83.2 kg (183 lb 6.8 oz) SpO2 97% BMI 27.48 kg/m? Physical Exam Constitutional: Appearance: Normal appearance. HENT: Right Ear: Tympanic membrane, ear canal and external ear normal. Left Ear: Tympanic membrane, ear canal and external ear normal. Mouth/Throat: Mouth: Mucous membranes are moist. Pharynx: Oropharynx is clear. Comments: Some dental caries noted. No significant swelling redness or abscesses noted. No trismus noted. Eyes: Pupils: Pupils are equal, round, and reactive to light. Cardiovascular: Rate and Rhythm: Normal rate and regular rhythm. Heart sounds: Normal heart sounds. Pulmonary: Effort: Pulmonary effort is normal. Breath sounds: Normal breath sounds. Neurological: Mental Status: He is alert. 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 07/06/2018 Basal cell carcinoma 12/02/2021 Bilateral hip pain 01/21/2023 BPH (benign prostatic hyperplasia) s/p removal Callus of foot 09/22/2023 Seeing podiatry Chronic insomnia 02/24/2019 Controlled type 2 diabetes mellitus with stage 3 chronic kidney disease, without long-term current use of insulin ([facility]) 02/24/2019 Decreased libido 01/30/2018 Degenerative retinal drusen of both eyes 05/30/2015 Diabetic eye exam (HCC) 03/18/2022 Last done 01/05/22 Non-Proliferative Diabetic Retinopathy mild [facility] (erectile dysfunction) 05/20/2021 Essential hypertension, benign 06/06/2006 Ex-smoker 05/20/2021 Started age 16, up to 2 PPD quit age 21 Gastroesophageal reflux disease with esophagitis without hemorrhage 05/20/2021 Herniated lumbar intervertebral disc History of BPH s/p removal History of depression Iron deficiency anemia 06/21/2020 Irritable bowel syndrome with both constipation and diarrhea 07/31/2021 Leg cramps 01/30/2018 Living will on file at physician's office 10/13/2022 DPA: catherine () Low testosterone in male 06/21/2020 Lumbar radiculopathy 02/24/2019 Lumbar spinal stenosis 05/18/2023 MRI 02/2023- [facility] Malignant melanoma of torso excluding breast ([facility]) 02/11/2020 Metabolic dysfunction-associated steatohepatitis (MASH) 10/17/2024 US with elstography 09/2024 was F2-F3, seeing ? 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 Along with HS's and body aches: Has FMLA for Posterior vitreous detachment of left eye 08/31/2016 Posterior vitreous detachment of right eye 09/09/2017 Renal cyst, right 08/10/2021 Simple, benign US 07/2021 Retinopathy 03/19/2022 Mild B/l Rotator cuff tear, left Senile nuclear sclerosis 05/17/2017 Senile nuclear sclerosis, bilateral 09/09/2017 Stage 3a chronic kidney disease (HCC) 07/12/2024 SVT (supraventricular tachycardia) ([facility]) 05/20/2021 Treated with Ablation: 2013 Tinnitus of both ears 12/30/2023 Type 2 diabetes mellitus with retinopathy, without long-term current use of insulin (HCC) 09/09/2017 Uncontrolled type 2 diabetes mellitus with stage 3 chronic kidney disease, without long-term current use of insulin 01/30/2018 Vitreous syneresis of both eyes 05/30/2015 Well adult exam 08/23/2022 PAST SURGICAL HISTORY Procedure Laterality Date COLONOSCOPY 2011 COLONOSCOPY 06/01/2022 COLONOSCOPY FLX DX W/COLLJ SPEC WHEN PFRMD 08/21/2018 repeat 5 years EGD 06/01/2022 ESOPHAGOGASTRODUODENOSCOPY TRANSORAL DIAGNOSTIC 08/21/2018 repeat 2 years FASCT PALM W/WO Z-PLASTY TISSUE REARGMT/SKN GRFT Left 01/05/2018 A1 sánchez release ring finger HEART SURGERY HX INCISE FINGER TENDON SH (more content not included)...[facility] 02-18-2025 History of Present illness Narrative* Asim Denis APRN.SOCIAL MEDIA MANAGER - 02/18/2025 9:01 AM EDT [facility] Subjective Dar Rose is a 69 year old male. Patient presents with: Sinus Problem: sinus pressure, drainage, left ear and jaw pain x 2 weeks Patient came in with complaints of left-sided ear pain sinus pressure and congestion for about 2 weeks. Said he also has a little bit of tooth pain on the left side.. Denies any shortness of breath. Denies any other symptoms. Patient says he usually does get sinus infections. The history is provided by the patient. No language arts teacher was used. Sinus Problem Associated symptoms include congestion. Review of Systems Constitutional: Negative. HENT: Positive for congestion, ear pain and sinus pressure. Objective BP 102/60 Pulse 78 Temp 36.1 C (96.9 F) Resp 16 Wt 83.2 kg (183 lb 6.8 oz) SpO2 97% BMI27.48 kg/m Physical Exam Constitutional: Appearance: Normal appearance. HENT: Right Ear: Tympanic membrane, ear canal and external ear normal. Left Ear: Tympanic membrane, ear canal and external ear normal. Mouth/Throat: Mouth: Mucous membranes are moist. Pharynx: Oropharynx is clear. Comments: Some dental caries noted. No significant swelling redness or abscesses noted. No trismus noted. Eyes: Pupils: Pupils are equal, round, and reactive to light. Cardiovascular: Rate and Rhythm: Normal rate and regular rhythm. Heart sounds: Normal heart sounds. Pulmonary: Effort: Pulmonary effort is normal. Breath sounds: Normal breath sounds. Neurological: Mental Status: He is alert. 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 07/06/2018 Basal cell carcinoma 12/02/2021 Bilateral hip pain 01/21/2023 BPH (benign prostatic hyperplasia) s/p removal Callus of foot 09/22/2023 Seeing podiatry Chronic insomnia 02/24/2019 Controlled type 2 diabetes mellitus with stage 3 chronic kidney disease, without long-term current use of insulin ([facility]) 02/24/2019 Decreased libido 01/30/2018 Degenerative retinal drusen of both eyes 05/30/2015 Diabetic eye exam ([facility]) 03/18/2022 Last done 01/05/22 Non-Proliferative Diabetic Retinopathy mild [facility] (erectile dysfunction) 05/20/2021 Essential hypertension, benign 06/06/2006 Ex-smoker 05/20/2021 Started age 16, up to 2 PPD quit age 21 Gastroesophageal reflux disease with esophagitis without hemorrhage 05/20/2021 Herniated lumbar intervertebral disc History of BPH s/p removal History of depression Iron deficiency anemia 06/21/2020 Irritable bowel syndrome with both constipation and diarrhea 07/31/2021 Leg cramps 01/30/2018 Living will on file at physician's office 10/13/2022 DPA: catherine () Low testosterone in male 06/21/2020 Lumbar radiculopathy 02/24/2019 Lumbar spinal stenosis 05/18/2023 MRI 02/2023- [facility] Malignant melanoma of torso excluding breast (HCC) 02/11/2020 Metabolic dysfunction-associated steatohepatitis (MASH) 10/17/2024 US with elstography 09/2024 was F2-F3, seeing ? 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 Along with HS's and body aches: Has FMLA for Posterior vitreous detachment of left eye 08/31/2016 Posterior vitreous detachment of right eye 09/09/2017 Renal cyst, right 08/10/2021 Simple, benign US 07/2021 Retinopathy 03/19/2022 Mild B/l Rotator cuff tear, left Senile nuclear sclerosis 05/17/2017 Senile nuclear sclerosis, bilateral 09/09/2017 Stage 3a chronic kidney disease (HCC) 07/12/2024 SVT (supraventricular tachycardia) ([facility]) 05/20/2021 Treated with Ablation: 2013 Tinnitus of both ears 12/30/2023 Type 2 diabetes mellitus with retinopathy, without long-term current use of insulin (HCC) 09/09/2017 Uncontrolled type 2 diabetes mellitus with stage 3 chronic kidney disease, without long-term current use of insulin 01/30/2018 Vitreous syneresis of both eyes 05/30/2015 Well adult exam 08/23/2022 PAST SURGICAL HISTORY Procedure Laterality Date COLONOSCOPY 2011 COLONOSCOPY 06/01/2022 COLONOSCOPY FLX DX W/COLLJ SPEC WHEN PFRMD 08/21/2018 repeat 5 years EGD 06/01/2022 ESOPHAGOGASTRODUODENOSCOPY TRANSORAL DIAGNOSTIC 08/21/2018 repeat 2 years FASCT PALM W/WO Z-PLASTY TISSUE REARGMT/SKN GRFT Left 01/05/2018 A1 sánchez release ring finger HEART SURGERY HX INCISE FINGER TENDON SHEATH 09/15/2023 Ring trigger finger release Right ring open palmar fasciectomy LAPS PROSTECT RETROPUBIC RAD W/NRV SPARING ROBOT 02/02/2019 for enlarged prostate PAST SURGICAL HISTORY OF 1999 rotator cuff left PAST SURGICAL HISTORY OF 2014 ablation, SVT TONSILLECTOMY HX ALLERGIES Bee Sting, Amitriptyline, Tramadol, and Trazodone MEDICATIONS amoxicillin-clavulanate potassium (AUGMENTIN) 875-125 mg per tablet Take 1 tablet by mouth two times a day for 7 days. empagliflozin (JARDIANCE) 25 mg tablet Take 1 tablet by mouth daily with breakfast. Per Endo: Dr. Mireles ferrous sulfate 325 mg (65 mg iron) tablet Take 1 tablet by mouth every other day. atorvastatin (LIPITOR) 10 mg tablet Take 1 tablet by mouth daily at bedtime. For cholesterol. esomeprazole (NEXIUM) 40 mg capsule Take 1 capsule by mouth two times a day. gabapentin (NEURONTIN) 100 mg capsule Take gabapentin 100 mg in the evening for a week, then increase to two 100 mg capsules before bed. semaglutide (OZEMPIC) 0.25 mg or 0.5 mg (2 mg/3 mL) pen Inject 0.25 mg subcutaneously one time a week. blood sugar diagnostic (BLOOD GLUCOSE TEST) test strip Test blood sugar(s) 2 times daily. Dx: OtherDM Code E11.22 Insulin: No Lancets Test blood sugar(s) 2 times daily. Dx: Other DM Code E11.22 Insulin: No dicyclomine (BENTYL) 10 mg capsule Take 1 capsule by mouth before meals and at bedtime. PRN EPINEPHrine (AUVI-Q) 0.3 mg/0.3 mL auto-injector Inject 0.3 mL intramuscularly as needed. fluticasone (FLONASE) 50 mcg/actuation nasal spray Use 2 Sprays in each nostril once daily. Rinse mouth after use. docusate sodium (COLACE) 100 mg capsule Take 1 capsule by mouth two times a day as needed for constipation. ondansetron orally disintegrating (ZOFRAN ODT) 4 mg disintegrating tablet Take 1 tablet by mouth every 6 hours as needed for nausea/vomiting. losartan (COZAAR) 100 mg tablet Take 1 tablet by mouth once daily. carvedilol (COREG) 25 mg tablet Take 1 tablet by mouth twice daily. Per CardioDr. Schneider amLODIPine (NORVASC) 10 mg tablet Take 1 tablet by mouth once daily. Per CardioDr. Schneider FAMILY HISTORY Problem Relation Age of Onset other (cancer, lung) Mother Alzheimer's Disease Father No Known Problems Sister Heart Attack Brother 69 3 vessle CABG No Known Problems Maternal Grandmother No Known Problems Maternal Grandfather No Known Problems Paternal Grandmother No Known Problems Paternal Grandfather Social History Tobacco Use Smoking status: Former Smokeless tobacco: Never Tobacco comments: quit around 1983 Vaping Use Vaping status: Never Used Substance Use Topics Alcohol use: Yes Comment: seldom beer Drug use: No {ASSESSMENT/PLAN: 1. Rhinosinusitis - ICD9: 473.9, ICD10: J32.9 - Will begin treatment with as per antibiotic as written, see orders - Supportive care with plenty of fluids, rest, and analgesia prn. - AMOXICILLIN 875 MG-POTASSIUM CLAVULANATE 125 MG TABLET Will follow-up with primary care if signs and symptoms do not improve. Patient agreeable to care plan. Asim Denis APRN.KRANTHI History and Record Review External record(s) reviewed: no prior records. Disposition The patient was discharged. Procedures documented in this encounter[facility] NoteHNO ID: [id number] Author: MILIND DENIS MA Service: ? Author Type: Flavoring Maker Type: Progress Notes Filed: 01/30/2025 11:29 Note Text: Scan on 01/28/2025 5:43 PM by ProviderZia PA-C: Consultation - Endocrinology Milind Denis [facility]04-02-2025 History of Present illness Narrative* Milind Denis MA - 01/30/2025 11:28 AM EDT Scan on 01/28/2025 5:43 PM by ProviderZia PA-C: Consultation - Endocrinology Milind Denis MA documented in this encounterAv[facility] Instructions* Patient Instructions* Ani Linares - 01/29/2025 10:48 AM EDT Diabetes Foot Care Instructions When you have diabetes, proper foot care is very important. Poor foot care may lead to amputation of a foot or leg. As a person with diabetes, you are more vulnerable to foot problems, because diabetes can damage your nerves and reduce blood flow to your feet. Here are some diabetes foot care tips to follow: Wash and Dry Your Feet Daily Use mild soaps Use warm water Pat your skin dry; do not rub. Thoroughly dry your feet. After washing, use lotion on your feet to prevent cracking. Do not put lotion between your toes. Examine Your Feet Each Day Check the tops and bottoms of your feet. Have someone else look at your feet if you cannot see them. Check for dry, cracked skin. Look for blisters, cuts, scratches, or other sores. Check for redness, increased warmth, or tenderness when touching any area of your feet. Check for ingrown toenails, corns, and calluses. If you get a blister or sore from your shoes, do not pop it. Apply a bandage and wear a differentpair of shoes. Take Care of Your Toenails Cut toenails after bathing, when they are soft. Cut toenails straight across and smooth with a nail file. Avoid cutting into the corners of toes. Do not cut cuticles. If you have neuropathy (or decreased sensation in your feet) a air pumper should always cut your toenails. Be Careful When Exercising Walk and exercise in comfortable shoes. Do not exercise when you have open sores on your feet. Protect Your Feet With Shoes and Socks Never go barefoot. Always protect your feet by wearing shoes or hard-soled slippers or footwear. Avoid shoes with high heels and pointed toes. Avoid shoes that expose your toes or heels (such as open-toed shoes or sandals). These types of shoes increase your risk for injury and potential infections. Try on new footwear with the type of socks you usually wear. Do not wear new shoes for more than an hour at a time. Change your socks daily. Look and feel inside your shoes before putting them on to make sure there are no foreign objects orrough areas. Avoid tight socks. Wear natural-fiber socks (cotton, wool, or a cotton-wool blend). Wear special shoes if your health care provider recommends them. Wear shoes/boots that will protect your feet from various weather conditions (cold, moisture, etc.). Make sure your shoes fit properly. If you have neuropathy (nerve damage), you may not notice that your shoes are too tight. Perform the footwear test described below. Footwear Test Use this simple test to see if your shoes fit correctly: Stand on a piece of paper. (Make sure you are standing and not sitting, because your foot changes shape when you stand.) Trace the outline of your foot. Trace the outline of your shoe. Compare the tracings: Is the shoe too narrow? Is your foot crammed into the shoe? The shoe should be at least 1/2 inch longer than your longest toe and as wide as your foot. Proper Shoe Choices The following types of shoes are best for people with diabetes Closed toes and heels Leather uppers without a seam inside At least 1/2 inch extra space at the end of your longest toe Inside of shoe should be soft with no rough areas Outer sole should be made of stiff material Shoes should be at least as wide as your feet Tips for Foot Care in Diabetes Don't wait to treat a minor foot problem if you have diabetes. Follow your health care provider's guidelines and first aid guidelines. Report foot injuries and infections to your health care provider immediately. Check water temperature with your elbow, not your foot. Do not use a heating pad on your feet. Do not cross your legs. Do not self-treat your corns, calluses, or other foot problems. Go to your health care provider or air pumper to treat these conditions. Can use gel pad to help avoid rubbing. Be sure to remove periodically so that it does not lead to moist skin. If pain persists, could consider resecting some of the bone documented in this encounter[facility]25 NoteHNO ID: [id number] Author: ANI LINARES, ? Service: ? Author Type: Physician Type: Progress Notes Filed: 01/29/2025 12:44 Note Text: Initial Office Visit Subjective: This 69 year old male presents to clinic for diabetic foot check. Patient has the following complaints: corn of right hallux. Patient presents to clinic with primary complaint of corn to the right great toe. He complains of annoying type pain. He has treated with corn pad. He states the pain is steadily getting worse. Patient admits to being diabetic for multiple years now. Patient +B/T/N in feet at this time. Patient is now taking gabapentin at night and that does seem to help. Patient -pain in legs when walking. No other pedal complaints at this time. No change in medications or medical history since last visit. PAIN EVALUATION No data found in the last 1 encounters. 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 07/06/2018 Basal cell carcinoma 12/02/2021 Bilateral hip pain 01/21/2023 BPH (benign prostatic hyperplasia) s/p removal Callus of foot 09/22/2023 Seeing podiatry Chronic insomnia 02/24/2019 Controlled type 2 diabetes mellitus with stage 3 chronic kidney disease, without long-term current use of insulin ([facility]) 02/24/2019 Decreased libido 01/30/2018 Degenerative retinal drusen of both eyes 05/30/2015 Diabetic eye exam (HCC) 03/18/2022 Last done 01/05/22 Non-Proliferative Diabetic Retinopathy mild [facility] (erectile dysfunction) 05/20/2021 Essential hypertension, benign 06/06/2006 Ex-smoker 05/20/2021 Started age 16, up to 2 PPD quit age 21 Gastroesophageal reflux disease with esophagitis without hemorrhage 05/20/2021 Herniated lumbar intervertebral disc History of BPH s/p removal History of depression Iron deficiency anemia 06/21/2020 Irritable bowel syndrome with both constipation and diarrhea 07/31/2021 Leg cramps 01/30/2018 Living will on file at physician's office 10/13/2022 DPA: catherine () Low testosterone in male 06/21/2020 Lumbar radiculopathy 02/24/2019 Lumbar spinal stenosis 05/18/2023 MRI 02/2023- [facility] Malignant melanoma of torso excluding breast (HCC) 02/11/2020 Metabolic dysfunction-associated steatohepatitis (MASH) 10/17/2024 US with elstography 09/2024 was F2-F3, seeing ? 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 Along with HS's and body aches: Has FMLA for Posterior vitreous detachment of left eye 08/31/2016 Posterior vitreous detachment of right eye 09/09/2017 Renal cyst, right 08/10/2021 Simple, benign US 07/2021 Retinopathy 03/19/2022 Mild B/l Rotator cuff tear, left Senile nuclear sclerosis 05/17/2017 Senile nuclear sclerosis, bilateral 09/09/2017 Stage 3a chronic kidney disease ([facility]) 07/12/2024 SVT (supraventricular tachycardia) ([facility]) 05/20/2021 Treated with Ablation: 2013 Tinnitus of both ears 12/30/2023 Type 2 diabetes mellitus with retinopathy, without long-term current use of insulin ([facility]) 09/09/2017 Uncontrolled type 2 diabetes mellitus with stage 3 chronic kidney disease, without long-term current use of insulin 01/30/2018 Vitreous syneresis of both eyes 05/30/2015 Well adult exam 08/23/2022 Current Outpatient Medications Medication Sig ferrous sulfate 325 mg (65 mg iron) tablet Take 1 tablet by mouth every other day. atorvastatin (LIPITOR) 10 mg tablet Take 1 tablet by mouth daily at bedtime. For cholesterol. esomeprazole (NEXIUM) 40 mg capsule Take 1 capsule by mouth two times a day. gabapentin (NEURONTIN) 100 mg capsule Take gabapentin 100 mg in the evening for a week, then increase to two 100 mg capsules before bed. semaglutide (OZEMPIC) 0.25 mg or 0.5 mg (2 mg/3 mL) pen Inject 0.25 mg subcutaneously one time a week. metFORMIN (GLUCOPHAGE) 1,000 mg tablet Take 1 tablet by mouth two times a day with meals. blood sugar diagnostic (BLOOD GLUCOSE TEST) test strip Test blood sugar(s) 2 times daily. Dx: Other DM Code E11.22 Insulin: No Lancets Test blood sugar(s) 2 times daily. Dx: Other DM Code E11.22 Insulin: No dicyclomine (BENTYL) 10 mg capsule Take 1 capsule by mouth before meals and at bedtime. PRN EPINEPHrine (AUVI-Q) 0.3 mg/0.3 (more content not included)...[facility]04-01-2025 History of Present illness Narrative* Ani Linares - 01/29/2025 10:40 AM EDT Initial Office Visit Subjective: This 69 year old male presents to clinic for diabetic foot check. Patient has the following complaints: corn of right hallux. Patient presents to clinic with primary complaint of corn to the right great toe. He complains of annoying type pain. He has treated with corn pad. He states the pain is steadily getting worse. Patient admits to being diabetic for multiple years now. Patient +B/T/N in feet at this time. Patient is now taking gabapentin at night and that does seem to help. Patient -pain in legs when walking. No other pedal complaints at this time. No change in medications or medical history since last visit. PAIN EVALUATION No data found in the last 1 encounters. 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 07/06/2018 Basal cell carcinoma 12/02/2021 Bilateral hip pain 01/21/2023 BPH (benign prostatic hyperplasia) s/p removal Callus of foot 09/22/2023 Seeing podiatry Chronic insomnia 02/24/2019 Controlled type 2 diabetes mellitus with stage 3 chronic kidney disease, without long-term current use of insulin ([facility]) 02/24/2019 Decreased libido 01/30/2018 Degenerative retinal drusen of both eyes 05/30/2015 Diabetic eye exam (HCC) 03/18/2022 Last done 01/05/22 Non-Proliferative Diabetic Retinopathy mild [facility] (erectile dysfunction) 05/20/2021 Essential hypertension, benign 06/06/2006 Ex-smoker 05/20/2021 Started age 16, up to 2 PPD quit age 21 Gastroesophageal reflux disease with esophagitis without hemorrhage 05/20/2021 Herniated lumbar intervertebral disc History of BPH s/p removal History of depression Iron deficiency anemia 06/21/2020 Irritable bowel syndrome with both constipation and diarrhea 07/31/2021 Leg cramps 01/30/2018 Living will on file at physician's office 10/13/2022 DPA: catherine () Low testosterone in male 06/21/2020 Lumbar radiculopathy 02/24/2019 Lumbar spinal stenosis 05/18/2023 MRI 02/2023- [facility] Malignant melanoma of torso excluding breast ([facility]) 02/11/2020 Metabolic dysfunction-associated steatohepatitis (MASH) 10/17/2024 US with elstography 09/2024 was F2-F3, seeing ? 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 Along with HS's and body aches: Has FMLA for Posterior vitreous detachment of left eye 08/31/2016 Posterior vitreous detachment of right eye 09/09/2017 Renal cyst, right 08/10/2021 Simple, benign US 07/2021 Retinopathy 03/19/2022 Mild B/l Rotator cuff tear, left Senile nuclear sclerosis 05/17/2017 Senile nuclear sclerosis, bilateral 09/09/2017 Stage 3a chronic kidney disease ([facility]) 07/12/2024 SVT (supraventricular tachycardia) ([facility]) 05/20/2021 Treated with Ablation: 2013 Tinnitus of both ears 12/30/2023 Type 2 diabetes mellitus with retinopathy, without long-term current use of insulin ([facility]) 09/09/2017 Uncontrolled type 2 diabetes mellitus with stage 3 chronic kidney disease, without long-term current use of insulin 01/30/2018 Vitreous syneresis of both eyes 05/30/2015 Well adult exam 08/23/2022 Current Outpatient Medications Medication Sig ferrous sulfate 325 mg (65 mg iron) tablet Take 1 tablet by mouth every other day. atorvastatin (LIPITOR) 10 mg tablet Take 1 tablet by mouth daily at bedtime. For cholesterol. esomeprazole (NEXIUM) 40 mg capsule Take 1 capsule by mouth two times a day. gabapentin (NEURONTIN) 100 mg capsule Take gabapentin 100 mg in the evening for a week, then increase to two 100 mg capsules before bed. semaglutide (OZEMPIC) 0.25 mg or 0.5 mg (2 mg/3 mL) pen Inject 0.25 mg subcutaneously one time a week. metFORMIN (GLUCOPHAGE) 1,000 mg tablet Take 1 tablet by mouth two times a day with meals. blood sugar diagnostic (BLOOD GLUCOSE TEST) test strip Test blood sugar(s) 2 times daily. Dx: OtherDM Code E11.22 Insulin: No Lancets Test blood sugar(s) 2 times daily. Dx: Other DM Code E11.22 Insulin: No dicyclomine (BENTYL) 10 mg capsule Take 1 capsule by mouth before meals and at bedtime. PRN EPINEPHrine (AUVI-Q) 0.3 mg/0.3 mL auto-injector Inject 0.3 mL intramuscularly as needed. fluticasone (FLONASE) 50 mcg/actuation nasal spray Use 2 Sprays in each nostril once daily. Rinse mouth after use. docusate sodium (COLACE) 100 mg capsule Take 1 capsule by mouth two times a day as needed for constipation. ondansetron orally disintegrating (ZOFRAN ODT) 4 mg disintegrating tablet Take 1 tablet by mouth every 6 hours as needed for nausea/vomiting. losartan (COZAAR) 100 mg tablet Take 1 tablet by mouth once daily. carvedilol (COREG) 25 mg tablet Take 1 tablet by mouth twice daily. Per Cardio, Dr. Schneider amLODIPine (NORVASC) 10 mg tablet Take 1 tablet by mouth once daily. Per Cardio, Dr. Schneider No current facility-administered medications for this visit. ALLERGIES Allergen Reactions Bee Sting Anaphylaxis Amitriptyline Intolerance Tramadol Vomiting Trazodone Other: See Comments Makes him groggy the next day PAST SURGICAL HISTORY Procedure Laterality Date COLONOSCOPY 2011 COLONOSCOPY 06/01/2022 COLONOSCOPY FLX DX W/COLLJ SPEC WHEN PFRMD 08/21/2018 repeat 5 years EGD 06/01/2022 ESOPHAGOGASTRODUODENOSCOPY TRANSORAL DIAGNOSTIC 08/21/2018 repeat 2 years FASCT PALM W/WO Z-PLASTY TISSUE REARGMT/SKN GRFT Left 01/05/2018 A1 sánchez release ring finger HEART SURGERY HX INCISE FINGER TENDON SHEATH 09/15/2023 Ring trigger finger release Right ring open palmar fasciectomy LAPS PROSTECT RETROPUBIC RAD W/NRV SPARING ROBOT 02/02/2019 for enlarged prostate PAST SURGICAL HISTORY OF 1999 rotator cuff left PAST SURGICAL HISTORY OF 2013 ablation, SVT TONSILLECTOMY HX FAMILY HISTORY Problem Relation Age of Onset other (cancer, lung) Mother Alzheimer's Disease Father No Known Problems Sister Heart Attack Brother 69 3 vessle CABG No Known Problems Maternal Grandmother No Known Problems Maternal Grandfather No Known Problems Paternal Grandmother No Known Problems Paternal Grandfather Social History Tobacco Use Smoking status: Former Smokeless tobacco: Never Tobacco comments: quit around 1983 Vaping Use Vaping status: Never Used Substance Use Topics Alcohol use: Yes Comment: seldom beer Drug use: No REVIEW OF SYSTEMS GENERAL: Negative for Malaise, significant weight loss, fever RESPIRATORY: Negative for cough, wheezing and shortness of breath CARDIOVASCULAR: Negative for chest pain, leg swelling and palpitations GI: Negative for abdominal discomfort, blood in stools or black stools and change in bowel habits : Negative for dysuria, frequency and incontinence MUSCULOSKELETAL: Negative for joint pain or swelling, back pain, and muscle pain. SKIN: Negative for lesions, rash, and itching. HEMATOLOGY/LYMPHOLOGY Negative for prolonged bleeding, bruising easily, and swollen nodes. ENDOCRINE: Negative for cold or heat intolerance, polyuria, polydipsia and goiter. NEURO: negative The remainder of the review of systems is noncontributory. Objective: Patient presents to clinic ambulating in sneakers Constitutional: Pt is a well developed 69 year old male who is alert, oriented, cooperative and in no apparent distress. Eyes: Following during examination. No redness or drainage. Respiratory: RR normal and nonlabored. Even breathing. No evidence of distress. Psychology: Patient is engaged during conversation. Normal affect and mood. Does not appear depressed or anxious. Vasc: DP and PT pulses are palpable bilateral. CFT is less than 5 seconds bilateral. Skin temperature is warm to warm proximal to distal bilateral. There is no edema or varicosities noted. Hair growth present. Neuro: Protective sensation is intact to the foot and toes when tested with the 5.07 SWM bilateral.Vibratory sensation is decreased at the hallux bilateral. + Significant neurological defecits. Derm: Inspection and palpation performed. Nails 1-5 b/l are normal in length and thickness. Skin isof normal turgor and texture. Hyperkeratosis noted to not present. NO ulcerations, scars, verruca or other lesions noted. Minimal callus is present to right hallux Ortho: Ankle joint DF is full with the knee extended and full with knee flexed. No pain or crepitusnoted. STJ, MTJ ROM are full and free of pain or crepitus. Muscle strength is 5/5 for dorsiflexors,plantarflexors, inverters, everters. Digital deformities include mild exostosis of b/l hallux IPJ right Larger than left. Assessment: (E11.42) Diabetic polyneuropathy associated with type 2 diabetes mellitus (HCC) (primary encounter diagnosis) (M19.079) Arthritis of joint of toe (L84) Callus of foot Plan: 1. Patient was seen and evaluated. 2. Patient was instructed on the continued importance of diabetic foot care along with proper diet and keeping their blood sugar under control to prevent complications. I stressed the importance of avoiding barefoot walking, wearing good shoes and inspection of feet. I discussed how this patient suffers from neuropathy and that it is important that she monitor for any open wounds. If she developsany issues, she is to contact our office immediately and we will have them seen. Instructions given both oral and written. 3. Patient has pain along right hallux ipj. Does have prominent exostosis. Options include wider shoes and/or padding. Other options pending xray would be to resect part of the exostosis. Xrays ordered. 4. Callus reduced to right hallux with dremmel. 5. Follow-up in 1 year or sooner if problems arise. Ani Linares DPM * Izabela Garcia RN - 01/29/2025 10:24 AM EDT Patient presents with: Right Foot - Established Patient, Follow Up, Pain, Diabetic Foot Care Left Foot - Established Patient, Diabetic Foot Care Patient presents for right big toe pain. State that this is the same one he has seen us for previously, pain has returned as the corn has returned. Hx of neuropathy and diabetes. [facility] 06/07/24 documented in this encounterAv[facility]04-[facility]25 NoteHNO ID: [id number] Author: IZABELA GARCIA RN Service: ? Author Type: Registered Nurse Type: Progress Notes Filed: 01/29/2025 12:44 Note Text: Patient presents with: Right Foot - Established Patient, Follow Up, Pain, Diabetic Foot Care Left Foot - Established Patient, Diabetic Foot Care Patient presents for right big toe pain. State that this is the same one he has seen us for previously, pain has returned as the corn has returned. Hx of neuropathy and diabetes. [facility] 06/07/24[facility] note* Diagnosis Onset Date Resolution Status Admit Date CKD (chronic kidney disease) chronic January 28, 2025 9:35am Dyslipidemia chronic January 28, 2025 9:35am Essential hypertension chronic [facility] 2024 9:35am Microalbuminuria chronic January 282024 9:35am Neuropathy chronic January 28 9:35am Overweight chronic January 28 9:35am Type 2 diabetes mellitus chronic January 28, 2025 9:35am [place] [facility] Work Phone: 1(490) 296-800103-31-2025 Evaluation note* Diagnosis Onset Date Resolution Status Admit Date CKD (chronic kidney disease) chronic January 28, 2025 9:35am Dyslipidemia chronic January 28, 2025 9:35am Essential hypertension chronic [facility] 2024 9:35am Microalbuminuria chronic January 282024 9:35am Neuropathy chronic January 28 9:35am Overweight chronic January 28 9:35am Type 2 diabetes mellitus chronic January 28, 2025 9:35am CKD (chronic kidney disease) chronic April 29, 2025 9:01am Dyslipidemia chronic April 29, 025 9:01am Essential hypertension chronic [facility] 2024 9:01am Microalbuminuria due to type 2 diabetes mellitus chronic April 29 9:01am Overweight chronic April 29 9:01am Type 2 diabetes mellitus chronic April 29, 2025 9:01am [place] [employer] Work Phone: [phone]) [phone] Telephone encounter Note* Telephone Encounter - Milind Denis MA - 01/22/2025 3:18 PM EDT Patient notified and voiced understanding. Milind Denis MA [facility]03-25-[facility]25 Miscellaneous Notes* Telephone Encounter - Milind Denis MA - 01/22/2025 3:18 PM EDT Patient notified and voiced understanding. Milind Denis MA * Telephone Encounter - Cruz Prado MD - 01/22/2025 12:58 PM EDT Let patient know the repeat calcium was ok. His parathyroid and vit D labs were ok also. documented in this encounterAvita [facility]03-[facility]-2025 Telephone encounter Note * Telephone Encounter - Cruz Prado MD - 01/22/2025 12:58 PM EDT Let patient know the repeat calcium was ok. His parathyroid and vit D labs were ok also. [facility]03-[facility] Telephone encounter Note* Telephone Encounter - Cruz Prado MD - 01/18/2025 1:42 PM EDT The following approved medication requests have been transmitted electronically. Requested Prescriptions Signed Prescriptions Disp Refills ferrous sulfate 325 mg (65 mg iron) tablet 45 tablet 3 Sig: Take 1 tablet by mouth every other day. Cruz Prado MD [facility]03-21-[facility]25 Miscellaneous Notes* Telephone Encounter - Cruz Prado MD - 01/18/2025 1:42 PM EDT The following approved medication requests have been transmitted electronically. Requested Prescriptions Signed Prescriptions Disp Refills ferrous sulfate 325 mg (65 mg iron) tablet 45 tablet 3 Sig: Take 1 tablet by mouth every other day. Cruz Prado MD * Telephone Encounter - Raul Domingo LPN - 01/18/2025 10:12 AM EDT Patient notified of results and provider's instructions. Patient verbalizes understanding. Pt wanting to know if Dr Prado can send in rx for the iron to [facility]. Only need to call pt if rx can't be sent there. Raul Domingo LPN * Telephone Encounter - Cruz Prado MD - 01/17/2025 9:52 AM EDT Let patient know his iron labs are on the lower level of normal and his hemoglobin is slightly low again. Advise him to go back on his iron but just one every other day and if he takes Vit C 500 mg with it, it will improve iron absorption. His A1c is still very good at 5.7%. Advise him to decrease his metformin to just one a day. His calcium is elevated and may be an error on the lab machine. I placed an order to recheck this along with the hormone that controls it and a Vit D level. His kidney functions show slight improvement but also showed he was dehydrated and can make his functions look worse. Advise trying to get 56-64 ounces of water daily. The rest of his labs and urine studies were ok. documented in this encounterAvita [facility]03-[facility]-2025 Telephone encounter Note * Telephone Encounter - Raul Domingo LPN - 01/18/2025 10:12 AM EDT Patient notified of results and provider's instructions. Patient verbalizes understanding. Pt wanting to know if Dr Prado can send in rx for the iron to [facility]. Only need to call pt if rx can't be sent there. Raul Domingo LPN [facility]03-20-2025 Telephone encounter Note* Telephone Encounter - Cruz Prado MD - 01/17/2025 9:52 AM EDT Let patient know his iron labs are on the lower level of normal and his hemoglobin is slightly low again. Advise him to go back on his iron but just one every other day and if he takes Vit C 500 mg with it, it will improve iron absorption. His A1c is still very good at 5.7%. Advise him to decrease his metformin to just one a day. His calcium is elevated and may be an error on the lab machine. I placed an order to recheck this along with the hormone that controls it and a Vit D level. His kidney functions show slight improvement but also showed he was dehydrated and can make his functions look worse. Advise trying to get 56-64 ounces of water daily. The rest of his labs and urine studies were ok. [facility]03-19-[facility] Instructions* Patient Instructions* Cruz Prado MD - 01/16/2025 8:20 AM EDT Check with insurance to see if they are covering the vaccine for RSV (respiratory synechial virus) Please get labs done on or after 07/05/2025 prior to your next visit. Stop taking the trazodone and start taking the gabapentin as directed on th bottle before bed to see if it helps your neuropathy and ability to fall asleep documented in this encounterAvita [facility]03-[facility] History of Present illness Narrative* Cruz Prado MD - 01/16/2025 8:00 AM EDT Images from the original note were not included. Chief Complaint Patient presents with: Physical HPI Dar Rose is a 69 year old male who presents here today for Physical. Patient with hx of HTN, hyperlipidemia, SVT, DM2, CKD, Matthew's melanoma, and those as below. Ref Range & Units 1 mo ago (11/21/24) 7 mo ago (05/28/24) 1 yr ago (11/25/23) 1 yr ago (05/09/23) 2 yr ago (09/29/22) 2 yr ago (04/02/22) 3 yr ago (11/06/21) Hemoglobin A1C 4.3 - 5.6 % 5.7 High 6.3 High CM 6.3 High CM 6.3 High CM 6.0 High CM 6.0 High CM 6.9 High CM Comment: [place] [employer] guidelines indicate that patients with HgbA1c in the range 5.7-6.4% ar Patient sees Podiatry next visit 01/2025 Patient sees Ophthalmology last visit 05/[address] Friend in Gastro for his MASH. Last 6 Encounter BP Readings: Date: BP: 07/12/2024 148/78 05/02/2024 130/70 04/12/2024 158/80 04/04/2024 120/64 04/02/2024 134/68 01/31/2024 142/80 Patient has been doing ok. Has noted he sometimes needs an extra dose of nexiu inj the evenings andwould like to have his script adjust to support this when needed. He would also like to see if he can try something different then the trazodone for sleep since it makes him feel groggy the next day. Otherwise has been on the same medication for about 6 years with good benefit. He is also noting increased neuropathy in both feet at night which affects his sleep. Past medical history, appointments, medications, allergies reviewed. 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 07/06/2018 Basal cell carcinoma 12/02/2021 Bilateral hip pain 01/21/2023 BPH (benign prostatic hyperplasia) s/p removal Callus of foot 09/22/2023 Seeing podiatry Chronic insomnia 02/24/2019 Controlled type 2 diabetes mellitus with stage 3 chronic kidney disease, without long-term current use of insulin ([facility]) 02/24/2019 Decreased libido 01/30/2018 Degenerative retinal drusen of both eyes 05/30/2015 Diabetic eye exam (HCC) 03/18/2022 Last done 01/05/22 Non-Proliferative Diabetic Retinopathy mild [facility] (erectile dysfunction) 05/20/2021 Essential hypertension, benign 06/06/2006 Ex-smoker 05/20/2021 Started age 16, up to 2 PPD quit age 21 Gastroesophageal reflux disease with esophagitis without hemorrhage 05/20/2021 Herniated lumbar intervertebral disc History of BPH s/p removal History of depression Iron deficiency anemia 06/21/2020 Irritable bowel syndrome with both constipation and diarrhea 07/31/2021 Leg cramps 01/30/2018 Living will on file at physician's office 10/13/2022 DPA: catherine () Low testosterone in male 06/21/2020 Lumbar radiculopathy 02/24/2019 Lumbar spinal stenosis 05/18/2023 MRI 02/2023- [facility] Malignant melanoma of torso excluding breast (HCC) 02/11/2020 Metabolic dysfunction-associated steatohepatitis (MASH) 10/17/2024 US with elstography 09/2024 was F2-F3, seeing ? 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 Along with HS's and body aches: Has FMLA for Posterior vitreous detachment of left eye 08/31/2016 Posterior vitreous detachment of right eye 09/09/2017 Renal cyst, right 08/10/2021 Simple, benign US 07/2021 Retinopathy 03/19/2022 Mild B/l Rotator cuff tear, left Senile nuclear sclerosis 05/17/2017 Senile nuclear sclerosis, bilateral 09/09/2017 SVT (supraventricular tachycardia) (HCC) 05/20/2021 Treated with Ablation: 2014 Tinnitus of both ears 12/30/2023 Type 2 diabetes mellitus with retinopathy, without long-term current use of insulin (HCC) 09/09/2017 Uncontrolled type 2 diabetes mellitus with stage 3 chronic kidney disease, without long-term current use of insulin 01/30/2018 Vitreous syneresis of both eyes 05/30/2015 Well adult exam 08/23/2022 Previous Surgical History PAST SURGICAL HISTORY Procedure Laterality Date COLONOSCOPY 2012 COLONOSCOPY 06/01/2022 COLONOSCOPY FLX DX W/COLLJ SPEC WHEN PFRMD 08/21/2018 repeat 5 years EGD 06/01/2022 ESOPHAGOGASTRODUODENOSCOPY TRANSORAL DIAGNOSTIC 08/21/2018 repeat 2 years FASCT PALM W/WO Z-PLASTY TISSUE REARGMT/SKN GRFT Left 01/05/2018 A1 sánchez release ring finger HEART SURGERY HX INCISE FINGER TENDON SHEATH 09/15/2023 Ring trigger finger release Right ring open palmar fasciectomy LAPS PROSTECT RETROPUBIC RAD W/NRV SPARING ROBOT 02/02/2019 for enlarged prostate PAST SURGICAL HISTORY OF 1999 rotator cuff left PAST SURGICAL HISTORY OF 2014 ablation, SVT TONSILLECTOMY HX Family History FAMILY HISTORY Problem Relation Age of Onset other (cancer, lung) Mother Alzheimer's Disease Father No Known Problems Sister Heart Attack Brother No Known Problems Maternal Grandmother No Known Problems Maternal Grandfather No Known Problems Paternal Grandmother No Known Problems Paternal Grandfather Patient Allergies ALLERGIES Allergen Reactions Bee Sting Anaphylaxis Amitriptyline Intolerance Tramadol Vomiting Current Medications Current Outpatient Medications on File Prior to Visit Medication Sig semaglutide (OZEMPIC) 0.25 mg or 0.5 mg (2 mg/3 mL) pen Inject 0.25 mg subcutaneously one time a week. metFORMIN (GLUCOPHAGE) 1,000 mg tablet Take 1 tablet by mouth two times a day with meals. traZODone (DESYREL) 50 mg tablet Take 1 tablet by mouth daily at bedtime. baclofen 10 mg tablet Take 1 tablet by mouth three times a day as needed (muscle spasms). blood sugar diagnostic (BLOOD GLUCOSE TEST) test strip Test blood sugar(s) 2 times daily. Dx: OtherDM Code E11.22 Insulin: No Lancets Test blood sugar(s) 2 times daily. Dx: Other DM Code E11.22 Insulin: No ferrous sulfate (SLOW FE) 137 mg (45 mg iron) TbER Take 1 tablet by mouth every other day. dicyclomine (BENTYL) 10 mg capsule Take 1 capsule by mouth before meals and at bedtime. PRN EPINEPHrine (AUVI-Q) 0.3 mg/0.3 mL auto-injector Inject 0.3 mL intramuscularly as needed. fluticasone (FLONASE) 50 mcg/actuation nasal spray Use 2 Sprays in each nostril once daily. Rinse mouth after use. esomeprazole (NEXIUM) 40 mg capsule Take 1 capsule by mouth once daily. atorvastatin (LIPITOR) 10 mg tablet Take 1 tablet by mouth daily at bedtime. For cholesterol. docusate sodium (COLACE) 100 mg capsule Take 1 capsule by mouth two times a day as needed for constipation. ondansetron orally disintegrating (ZOFRAN ODT) 4 mg disintegrating tablet Take 1 tablet by mouth every 6 hours as needed for nausea/vomiting. losartan (COZAAR) 100 mg tablet Take 1 tablet by mouth once daily. carvedilol (COREG) 25 mg tablet Take 1 tablet by mouth twice daily. Per CardioDr. Schneider amLODIPine (NORVASC) 10 mg tablet Take 1 tablet by mouth once daily. Per Cardio, Dr. Schneider No current facility-administered medications on file prior to visit. Social History Social History Tobacco Use Smoking status: Former Smokeless tobacco: Never Tobacco comments: quit around 1983 Vaping Use Vaping status: Never Used Substance Use Topics Alcohol use: Yes Comment: seldom beer Drug use: No Review of Symptoms REVIEW OF SYSTEMS GENERAL: No unintentional weight loss, malaise or fevers HEENT: Negative for frequent or significant headaches, No changes in hearing or vision, no nose bleeds or other nasal problems. Still with the tinnitus. NECK: Negative for lumps, goiter, pain and significant neck swelling RESPIRATORY: Negative for cough, hemoptysis, wheezing, COPD, dyspnea or shortness of breath CARDIOVASCULAR: Negative for chest pain, leg swelling, hypertension, CHF or palpitations. GI: No nausea, vomiting, or diarrhea and no blood. The Nexium controls his GERD well but some nights depending on what he eats he needs an extra dose. : No history of dysuria, frequency or blood MUSCULOSKELETAL: Negative for new or changes in his typical joint pain or swelling, back pain or muscle pain. The neuropathy in his feet tend to be bothering him more at night. SKIN: seeing Derm and just saw Dr. Virgen for skin check PSYCH: Negative for mood disorder and recent psychosocial stressors. Sleep affected by his neuropathy HEMATOLOGY/LYMPHOLOGY: Negative for prolonged bleeding, bruising easily or swollen nodes ENDOCRINE: Negative for cold or heat intolerance, symptoms of low BS's NEURO: No history of headaches, syncope, paralysis, seizures or tremors EXAM: BP 118/70 Pulse 72 Resp 16 Ht 174 cm (5' 8.5) Wt 81.2 kg (179 lb) BMI 26.82 kg/m Last 10 Encounter Wt Readings: Date: Wt: 01/16/2025 81.2 kg (179 lb) 12/12/2024 83.3 kg (183 lb 10.3 oz) 07/12/2024 90.3 kg (199 lb) 05/02/2024 90.3 kg (199 lb) 04/12/2024 90 kg (198 lb 6.6 oz) 04/04/2024 91.7 kg (202 lb 2.6 oz) 04/02/2024 91 kg (200 lb 9.9 oz) 01/31/2024 91.2 kg (201 lb) 12/30/2023 91.2 kg (201 lb) 11/29/2023 91.2 kg (201 lb) General Appearance: Well appearing, alert, in no acute distress, well-hydrated, well nourished.. Skin: Skin color, texture, turgor normal, no suspicious rashes or lesions. Head: Normocephalic, no masses, lesions, tenderness or abnormalities. Eyes: Anicteric sclera. Pupils are equally round and reactive to light. Extraocular movements are intact. . Ears: External ears normal, canals clear. Nose/Sinuses: Nares normal, septum midline, mucosa normal, no drainage or sinus tenderness. Oropharynx: Lips, mucosa, and tongue normal, teeth and gums normal, oropharynx normal. Neck: Supple, no adenopathy; thyroid symmetric, normal size, no bruits. Lungs: Lungs clear to auscultation. No wheezing, rhonchi, rales.. Heart: RRR without murmur, gallop, or rubs. No ectopy. Abdomen: Normal abdominal exam, Abdomen soft, non-tender. Bowel sounds normal. No masses, organomegaly. Extremities: No deformities, edema, skin discoloration, clubbing or cyanosis. Good capillary refill. . Musculoskeletal: Muscular strength intact, No joint swelling, deformity, or tenderness. Peripheral Pulses: Normal. Neurologic: Gait normal. Reflexes normal and symmetric. Sensation grossly intact.. Genitalia: Normal, Penis normal. No urethral discharge. Scrotum normal to palpation. No hernia.. Diabetic Foot Exam: Feet: Shoes and socks removed, no deformities, ulcers, calluses, sensitive to 10 gm microfilament, and vibratory exam within normal limits Skin: warm, dry, no callouses or ulcer, and normal hair growth Vascular Pulses: Normal SEMMES-FABRICE MONOFILAMENT TESTING Left Foot Right Foot Dorsal Surface Intact Dorsal Surface Intact Plantar Surface Intact Plantar Surface Intact Health Maintenance List Depression Screening Never done Shingrix Vaccine(1 of 2) Never done RSV Vaccine(1 - Risk 60-74 years 1-dose series) Never done Covid-19 Vaccine( season) due on 07/01/2024 Advance Directive Discussion due on 10/31/2024 Urine Albumin:Creatinine Ratio due on 11/25/2024 BP Controlled (<130/80) due on 12/29/2024 HbA1C due on 05/21/2025 LDL Cholesterol due on 05/28/2025 Serum Creatinine due on 05/28/2025 Hemoglobin/Hematocrit due on 05/28/2025 Dilated Retinal Exam due on 06/01/2025 Diabetic Foot Exam due on 06/07/2025 Annual PCP Team Chronic Disease Visit due on 07/12/2025 DTaP,Tdap,Td Vaccine(2 - Td or Tdap) due on 03/13/2027 Colorectal Cancer Screening due on 06/01/2027 Abdominal Aortic Aneurysm Screening Completed Influenza Vaccine Completed Hepatitis C Screening Completed Pneumococcal Vaccine: 50+ Completed Data reviewed A/P ASSESSMENT/PLAN: 1. Well adult exam - ICD9: V70.0, ICD10: Z00.00 (primary diagnosis) - Counseled on healthy diet and regular exercise - Patient counseled on and acknowledged vaccine benefits/risks/side effects; VIS provided: Shingrix - Follow up for annual exam in one year - advised on RSV 2. Type 2 diabetes mellitus with retinopathy, without long-term current use of insulin, macular edema presence unspecified, unspecified laterality, unspecified retinopathy severity (HCC) - ICD9: 250.50, 362.01, ICD10: E11.319 - Control undetermined, due for labs - Continue current medications - Counseled on healthy diet and regular exercise - if A1c still below 6% will have him cut back on his metformin to one a day. Check - ALBUMIN/CREATININE RATIO, URINE - COMPREHENSIVE METABOLIC PANEL - HEMOGLOBIN A1C - URINALYSIS, WITH MICROSCOPIC - LIPID PANEL, NONFASTING - COMPLETE BLOOD COUNT AND DIFFERENTIAL 3. Controlled type 2 diabetes mellitus with stage 3 chronic kidney disease, without long-term current use of insulin (HCC) - ICD9: 250.40, 585.3, ICD10: E11.22, N18.30 - Control undetermined, due for labs - Continue current medications - Counseled on healthy diet and regular exercise - as above Check - ALBUMIN/CREATININE RATIO, URINE - COMPREHENSIVE METABOLIC PANEL - HEMOGLOBIN A1C - URINALYSIS, WITH MICROSCOPIC - LIPID PANEL, NONFASTING - COMPLETE BLOOD COUNT AND DIFFERENTIAL 4. Stage 3a chronic kidney disease (HCC) - ICD9: 585.3, ICD10: N18.31 Await labs - Counseled on avoiding NSAIDs, adequate hydration - ACEi/ARB prescribed: Yes - SGLT2i prescribed: Yes - COMPREHENSIVE METABOLIC PANEL - URINALYSIS, WITH MICROSCOPIC 5. Diabetic eye exam (HCC) - ICD9: V72.0, 250.00, ICD10: Z01.00, E11.9 - up to date 6. Essential hypertension, benign - ICD9: 401.1, ICD10: I10 - Controlled - Continue current medications - Recommend home blood pressure monitoring, to bring results to next visit - Encouraged sodium restriction, DASH or Mediterranean diet - Recommend regular aerobic exercise Check - COMPREHENSIVE METABOLIC PANEL - URINALYSIS, WITH MICROSCOPIC - LIPID PANEL, NONFASTING 7. Mixed hyperlipidemia - ICD9: 272.2, ICD10: E78.2 - Control undetermined, due for labs - Continue current medications - Counseled on healthy diet and regular exercise Check - COMPREHENSIVE METABOLIC PANEL - URINALYSIS, WITH MICROSCOPIC - LIPID PANEL, NONFASTING 8. 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) - ICD9: 250.60, 356.2, ICD10: E11.42 - Continue current medications - will start gabapentin 100 mg QHS for a week then Two before bed. 9. SVT (supraventricular tachycardia) ([facility]) - ICD9: 427.89, ICD10: I47.10 - stable on Coreg and managed per Cardio. 10. Gastroesophageal reflux disease with esophagitis without hemorrhage - ICD9: 530.81, 530.10, ICD10: K21.00 - Begin treatment with Nexium 40 mg BID - ESOMEPRAZOLE MAGNESIUM 40 MG CAPSULE,DELAYED RELEASE Check - VITAMIN B12 - MAGNESIUM 11. Iron deficiency anemia, unspecified iron deficiency anemia type - ICD9: 280.9, ICD10: D50.9 Check - IRON AND TIBC - COMPLETE BLOOD COUNT AND DIFFERENTIAL - patient current off iron. 12. Anxiety - ICD9: 300.00, ICD10: F41.9 - stable 13. Chronic insomnia - ICD9: 780.52, ICD10: F51.04 - will stop the trazodone and see if starting the Gabapentin for his neuropathy helps the insomnia. 14. Metabolic dysfunction-associated steatohepatitis (MASH) - ICD9: 571.8, ICD10: K75.81 - managed per Gastro 15. Malignant melanoma of torso excluding breast (HCC) - ICD9: 172.5, ICD10: C43.59 - follows with Derm 16. Need for vaccination - ICD9: V05.9, ICD10: Z23 - ZOSTER VACCINE, RECOMBINANT (SHINGRIX): #1 given - ZOSTER VACCINE, RECOMBINANT (SHINGRIX): # 2 in 2 months 17. Screening for depression - ICD9: V79.0, ICD10: Z13.31 - DEPRESSION SCREENING 18. Medication management - ICD9: V58.69, ICD10: Z79.899 Check - VITAMIN B12 - MAGNESIUM Requested Prescriptions Signed Prescriptions Disp Refills atorvastatin (LIPITOR) 10 mg tablet 90 tablet 1 Sig: Take 1 tablet by mouth daily at bedtime. For cholesterol. esomeprazole (NEXIUM) 40 mg capsule 180 capsule 1 Sig: Take 1 capsule by mouth two times a day. gabapentin (NEURONTIN) 100 mg capsule 60 capsule 5 Sig: Take gabapentin 100 mg in the evening for a week, then increase to two 100 mg capsules before bed. F/u 6 months routine I spent a total of 47 minutes on the date of the service which included preparing to see the patient, [id number] patient care, completing clinical documentation, performing a medically appropriate examination, counseling and educating the patient/family/caregiver and ordering medications, tests, or procedures. Cruz Prado MD documented in this encounter[facility] NoteHNO ID: [id number] Author: CRUZ PRADO MD Service: ? Author Type: Physician Type: Progress Notes Filed: 01/16/2025 09:48 Note Text: Chief Complaint Patient presents with: Physical HPI Dar Rose is a 69 year old male who presents here today for Physical. Patient with hx of HTN, hyperlipidemia, SVT, DM2, CKD, Matthew's melanoma, and those as below. Ref Range AND Units 1 mo ago (11/21/24) 7 mo ago (05/28/24) 1 yr ago (11/25/23) 1 yr ago (05/09/23) 2 yr ago (09/29/22) 2 yr ago (04/02/22) 3 yr ago (11/06/21) Hemoglobin A1C 4.3 - 5.6 % 5.7 High 6.3 High CM 6.3 High CM 6.3 High CM 6.0 High CM 6.0 High CM 6.9 High CM Comment: [place] [employer] guidelines indicate that patients with HgbA1c in the range 5.7-6.4% ar Patient sees Podiatry next visit 01/2025 Patient sees Ophthalmology last visit 05/[address] Abdi in [facility] for his MASH. Last 6 Encounter BP Readings: Date: BP: 07/12/2024 148/78 05/02/2024 130/70 04/12/2024 158/80 04/04/2024 120/64 04/02/2024 134/68 01/31/2024 142/80 Patient has been doing ok. Has noted he sometimes needs an extra dose of nexiu inj the evenings and would like to have his script adjust to support this when needed. He would also like to see if he can try something different then the trazodone for sleep since it makes him feel groggy the next day. Otherwise has been on the same medication for about 6 years with good benefit. He is also noting increased neuropathy in both feet at night which affects his sleep. Past medical history, appointments, medications, allergies reviewed. 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 07/06/2018 Basal cell carcinoma 12/02/2021 Bilateral hip pain 01/21/2023 BPH (benign prostatic hyperplasia) s/p removal Callus of foot 09/22/2023 Seeing podiatry Chronic insomnia 02/24/2019 Controlled type 2 diabetes mellitus with stage 3 chronic kidney disease, without long-term current use of insulin ([facility]) 02/24/2019 Decreased libido 01/30/2018 Degenerative retinal drusen of both eyes 05/30/2015 Diabetic eye exam (HCC) 03/18/2022 Last done 01/05/22 Non-Proliferative Diabetic Retinopathy mild [facility] (erectile dysfunction) 05/20/2021 Essential hypertension, benign 06/06/2006 Ex-smoker 05/20/2021 Started age 16, up to 2 PPD quit age 21 Gastroesophageal reflux disease with esophagitis without hemorrhage 05/20/2021 Herniated lumbar intervertebral disc History of BPH s/p removal History of depression Iron deficiency anemia 06/21/2020 Irritable bowel syndrome with both constipation and diarrhea 07/31/2021 Leg cramps 01/30/2018 Living will on file at physician's office 10/13/2022 DPA: catherine () Low testosterone in male 06/21/2020 Lumbar radiculopathy 02/24/2019 Lumbar spinal stenosis 05/18/2023 MRI 02/2023- [facility] Malignant melanoma of torso excluding breast (HCC) 02/11/2020 Metabolic dysfunction-associated steatohepatitis (MASH) 10/17/2024 US with elstography 09/2024 was F2-F3, seeing ? 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 Along with HS's and body aches: Has FMLA for Posterior vitreous detachment of left eye 08/31/2016 Posterior vitreous detachment of right eye 09/09/2017 Renal cyst, right 08/10/2021 Simple, benign US 07/2021 Retinopathy 03/19/2022 Mild B/l Rotator cuff tear, left Senile nuclear sclerosis 05/17/2017 Senile nuclear sclerosis, bilateral 09/09/2017 SVT (supraventricular tachycardia) ([facility]) 05/20/2021 Treated with Ablation: 2014 Tinnitus of both ears 12/30/2023 Type 2 diabetes mellitus with retinopathy, without long-term current use of insulin (HCC) 09/09/2017 Uncontrolled type 2 diabetes mellitus with stage 3 chronic kidney disease, without long-term current use of insulin 01/30/2018 Vitreous syneresis of both eyes 05/30/2015 Well adult exam 08/23/2022 Previous Surgical History PAST SURGICAL HISTORY Procedure Laterality Date COLONOSCOPY 2011 COLONOSCOPY 06/01/2022 COLONOSCOPY FLX DX W/COLLJ SPEC WHEN PFRMD 08/21/2018 repeat 5 years EGD 06/01/2022 ESOPHAGOGASTRODUODENOSCOPY TRANSORAL DIAGNOSTIC 08/21/2018 repeat 2 years FASCT PALM W/WO Z-PLASTY TISSUE REARGMT/SKN GRFT Left 01/05/2018 A1 sánchez release ring finger HEART SURGERY HX INCISE FINGER TENDON SHEATH 09/15/2023 Ring trigger finger release Right ring open palmar (more content not included)...[facility]03-18-2025 Telephone encounter Note* Telephone Encounter - Milind Denis MA - 01/15/2025 1:44 PM EDT Patient scheduled for tomorrow. Will discuss. Milind Denis MA [facility]03-18-2025 Miscellaneous Notes* Telephone Encounter - Milind Denis MA - 01/15/2025 1:44 PM EDT Patient scheduled for tomorrow. Will discuss. Milind Denis MA * Telephone Encounter - Raul Domingo LPN - 01/08/2025 12:00 PM EDT Attempted to contact pt. No answer and vm is full. Will try again later. Raul Domingo LPN * Telephone Encounter - Anette Arreola PA-C - 01/08/2025 11:50 AM EDT I will send in refill. Discuss at upcoming visit with dr. Prado the benefits and risk to increasing medication. Anette Arreola PA-C * Telephone Encounter - Alexandria Chawla - 01/08/2025 9:51 AM EDT Patient is out of this medication and is also asking if he is supposed to stay on this same dose. Patient has been identified by name and date of : Yes Patient phones for refill(s): Requested Prescriptions Pending Prescriptions Disp Refills semaglutide (OZEMPIC) 0.25 mg or 0.5 mg (2 mg/3 mL) pen 1 Each 1 Sig: Inject 0.25 mg subcutaneously one time a week. Date of last office visit in primary care: 07/12/2024 Date of next office visit in primary care: 01/16/2025 [facility] Please advise. Thank you. Alexandria Chawla. documented in this encounterAv[facility]03-[facility]25 Telephone encounter Note * Telephone Encounter - Raul Domingo LPN - 01/08/2025 12:00 PM EDT Attempted to contact pt. No answer and vm is full. Will try again later. Raul Domingo LPN [facility]03-11-2025 Telephone encounter Note* Telephone Encounter - Anette Arreola PA-C - 01/08/2025 11:50 AM EDT I will send in refill. Discuss at upcoming visit with dr. Prado the benefits and risk to increasing medication. Anette Arreola PA-C [facility]03-11-2025 Telephone encounter Note* Telephone Encounter - Alexandria Chawla - 01/08/2025 9:51 AM EDT Patient is out of this medication and is also asking if he is supposed to stay on this same dose. Patient has been identified by name and date of : Yes Patient phones for refill(s): Requested Prescriptions Pending Prescriptions Disp Refills semaglutide (OZEMPIC) 0.25 mg or 0.5 mg (2 mg/3 mL) pen 1 Each 1 Sig: Inject 0.25 mg subcutaneously one time a week. Date of last office visit in primary care: 07/12/2024 Date of next office visit in primary care: 01/16/2025 [facility] Please advise. Thank you. Alexandria Chawla. [facility]02-12-2025 NoteHNO ID: [id number] Author: JEFFERY BROTHERS PA-C Service: ? Author Type: Physician Lean Consultant Type: Progress Notes Filed: 12/12/2024 08:36 Note Text: This note was created using Meit[employer]. Subjective Dar Rose is a 69 year old male. Patient is a 69-year-old male who complains of ongoing and worsening congestion, sinus pressure, ear fullness, sore throat and cough that he has been experiencing for the past 2 weeks. Patient denies fever, chills or myalgia. Patient did get the influenza vaccine and states he had been feeling in good health prior to onset of his sinus congestion symptoms 2 weeks ago. Patient states that he does have a history of sinus infection and explains that his current symptoms are entirely consistent with same. Cough Associated symptoms include ear pain and sore throat. Review of Systems HENT: Positive for congestion, ear pain, sinus pressure, sinus pain and sore throat. Respiratory: Positive for cough. All other systems reviewed and are negative. Objective BP 148/75 Pulse 69 Temp 36.1 ?C (97 ?F) Resp 18 Wt 83.3 kg (183 lb 10.3 oz) SpO2 99% BMI 27.32 kg/m? Physical Exam Vitals and nursing note reviewed. Constitutional: Appearance: Normal appearance. He is normal weight. HENT: Head: Normocephalic and atraumatic. Right Ear: Tympanic membrane, ear canal and external ear normal. Left Ear: Tympanic membrane, ear canal and external ear normal. Nose: Congestion present. Mouth/Throat: Mouth: Mucous membranes are moist. Pharynx: Oropharynx is clear. Eyes: Extraocular Movements: Extraocular movements intact. Conjunctiva/sclera: Conjunctivae normal. Pupils: Pupils are equal, round, and reactive to light. Cardiovascular: Rate and Rhythm: Normal rate and regular rhythm. Pulses: Normal pulses. Heart sounds: Normal heart sounds. Pulmonary: Effort: Pulmonary effort is normal. Breath sounds: Normal breath sounds. Musculoskeletal: Cervical back: Normal range of motion and neck supple. Skin: General: Skin is warm and dry. Capillary Refill: Capillary refill takes less than 2 seconds. Neurological: General: No focal deficit present. Mental Status: He is alert and oriented to person, place, and time. Psychiatric: Mood and Affect: Mood normal. Behavior: Behavior normal. Thought Content: Thought content normal. Judgment: Judgment normal. Assessment and Plan Physical exam findings as noted above. Patient was provided with prescriptions for Augmentin 875-125 mg and Tessalon 100 mg and supportive care instructions were discussed. Patient verbalizes excellent understanding of same. CLINICAL IMPRESSION: Acute Sinusitis ASSESSMENT/PLAN: 1. Acute recurrent sinusitis, unspecified location - ICD9: 461.9, ICD10: J01.91 - AMOXICILLIN 875 MG-POTASSIUM CLAVULANATE 125 MG TABLET - BENZONATATE 100 MG CAPSULE EDY [facility]02-12-2025 History of Present illness Narrative* Jeffery Brothers PA-C - 12/12/2024 8:32 AM EST This note was created using [employer]. Subjective Dar Rose is a 69 year old male. Patient is a 69-year-old male who complains of ongoing and worsening congestion, sinus pressure, ear fullness, sore throat and cough that he has been experiencing for the past 2 weeks. Patient deniesfever, chills or myalgia. Patient did get the influenza vaccine and states he had been feeling in good health prior to onset of his sinus congestion symptoms 2 weeks ago. Patient states that he does have a history of sinus infection and explains that his current symptoms are entirely consistent with same. Cough Associated symptoms include ear pain and sore throat. Review of Systems HENT: Positive for congestion, ear pain, sinus pressure, sinus pain and sore throat. Respiratory: Positive for cough. All other systems reviewed and are negative. Objective BP 148/75 Pulse 69 Temp 36.1 C (97 F) Resp 18 Wt 83.3 kg (183 lb 10.3 oz) SpO2 99% BMI 27.32 kg/m Physical Exam Vitals and nursing note reviewed. Constitutional: Appearance: Normal appearance. He is normal weight. HENT: Head: Normocephalic and atraumatic. Right Ear: Tympanic membrane, ear canal and external ear normal. Left Ear: Tympanic membrane, ear canal and external ear normal. Nose: Congestion present. Mouth/Throat: Mouth: Mucous membranes are moist. Pharynx: Oropharynx is clear. Eyes: Extraocular Movements: Extraocular movements intact. Conjunctiva/sclera: Conjunctivae normal. Pupils: Pupils are equal, round, and reactive to light. Cardiovascular: Rate and Rhythm: Normal rate and regular rhythm. Pulses: Normal pulses. Heart sounds: Normal heart sounds. Pulmonary: Effort: Pulmonary effort is normal. Breath sounds: Normal breath sounds. Musculoskeletal: Cervical back: Normal range of motion and neck supple. Skin: General: Skin is warm and dry. Capillary Refill: Capillary refill takes less than 2 seconds. Neurological: General: No focal deficit present. Mental Status: He is alert and oriented to person, place, and time. Psychiatric: Mood and Affect: Mood normal. Behavior: Behavior normal. Thought Content: Thought content normal. Judgment: Judgment normal. Assessment and Plan Physical exam findings as noted above. Patient was provided with prescriptions for Augmentin 875-125 mg and Tessalon 100 mg and supportive care instructions were discussed. Patient verbalizes excellent understanding of same. CLINICAL IMPRESSION: Acute Sinusitis ASSESSMENT/PLAN: 1. Acute recurrent sinusitis, unspecified location - ICD9: 461.9, ICD10: J01.91 - AMOXICILLIN 875 MG-POTASSIUM CLAVULANATE 125 MG TABLET - BENZONATATE 100 MG CAPSULE Jeffery Brothers PA-C documented in this encounterAv[facility]25 NoteHNO ID: [id number] Author: RAUL DOMINGO LPN Service: ? Author Type: LICENSED NURSE Type: Progress Notes Filed: 12/04/2024 07:06 Note Text: Scan on 12/03/2024 5:39 PM by Zia Cornell PA-C: [facility] History of Present illness Narrative* Raul Domingo LPN - 12/04/2024 7:06 AM EST Scan on 12/03/2024 5:39 PM by Zia Cornell PA-C: Chemistry documented in this encounterAvita [facility]01-31-2025 NoteHNO ID: [id number] Author: RAUL DOMINGO LPN Service: ? Author Type: LICENSED NURSE Type: Progress Notes Filed: 11/30/2024 07:34 Note Text: Scan on 11/30/2024 5:34 AM by Zia Cornell PA-C: [facility]25 History of Present illness Narrative* Raul Domingo LPN - 11/30/2024 7:34 AM EST Scan on 11/30/2024 5:34 AM by Zia Cornell PA-C: Chemistry documented in this encounterAvita [facility]01-30-2025 NoteHNO ID: [id number] Author: RAUL DOMINGO LPN Service: ? Author Type: LICENSED NURSE Type: Progress Notes Filed: 11/29/2024 07:29 Note Text: Scan on 11/28/2024 4:38 PM by Zia Cornell PA-C: Hematology Scan on 11/28/2024 5:38 PM by Zia Cornell PA-C: Chemistry Scan on 11/28/2024 6:08 PM by Zia Cornell PA-C: [facility] History of Present illness Narrative* Raul Domingo LPN - 11/29/2024 7:29 AM EST Scan on 11/28/2024 4:38 PM by Zia Cornell PA-C: Hematology Scan on 11/28/2024 5:38 PM by Zia Cornell PA-C: Chemistry Scan on 11/28/2024 6:08 PM by Zia Cornell PA-C: Chemistry documented in this encounterAvita [facility]01-23-2025 Telephone encounter Note * Telephone Encounter - Izabela Skelton RN - 11/22/2024 8:41 AM EST Pt called and is notified of providers results. Pt voices understanding. Izabela Skelton RN [facility]01-23-2025 Miscellaneous Notes* Telephone Encounter - Izabela Skelton RN - 11/22/2024 8:41 AM EST Pt called and is notified of providers results. Pt voices understanding. Izabela Skelton RN * Telephone Encounter - Cruz Prado MD - 11/21/2024 7:21 PM EST Let patient know his A1c is very good at 5.7% documented in this encounterAvita [facility]01-22-2025 Telephone encounter Note * Telephone Encounter - Cruz Prado MD - 11/21/2024 7:21 PM EST Let patient know his A1c is very good at 5.7% [facility]01-22-2025 NoteHNO ID: [id number] Author: RAUL DOMINGO LPN Service: ? Author Type: LICENSED NURSE Type: Progress Notes Filed: 11/21/2024 07:52 Note Text: Scan on 11/20/2024 2:19 PM by Zia Cornell PA-C: EGD Scan on 11/20/2024 1:51 PM by [facility] History of Present illness Narrative* Raul Domingo LPN - 11/21/2024 7:51 AM EST Scan on 11/20/2024 2:19 PM by Zia Cornell PA-C: EGD Scan on 11/20/2024 1:51 PM by Provider, NELY Lizarraga documented in this encounterAvita [facility]01-21-2025 [facility] Medical Records Department [address] [place] [address] History Physical Exam 11/20/24 1330 MR#: [id number] Acct: [id number] Name: DAR ROSE Rep #: [id number] : 1955 69 From: Dany Friend DO PCP: Dr. Cruz Prado MD Status:[facility] Location: [place] [address] HPI - General General Date of Admission: 11/20/24 Date of Service: 11/20/24 Chief Complaint: Abdominal plain and Matthew's esophagus HPI Narrative 68y/o male presents for c/o right sided abdominal pain. COLON: 06/01/2022 diverticulosis - recall 10 years EGD: 06/01/2022 short-segment Matthew's w/o dysplasia US: 2020 2 cysts are seen within the liver. The larger within the left lobe posteriorly measures 3.3 x 3.0 x 2.2 cm and demonstrates a thin septation. The smaller is within the inferior right hepatic lobe and measures 2.5 x 2.4 x 1.8 cm. - denies any family h/o colon or esophageal cancer - son with UC - personal h/o prostatectomy - s/p cardiac ablation - does not take any anticoagulants - bowel habits are unpredictable - right sided abdominal discomfort - reports a significant improvement with dicyclomine - HB well controlled with Nexium 40mg daily - he can have 2-3 BM a day that are small, diarrhea or constipation - alternating bowels have been an issue for many years - was using Dicyclomine in the past - states this has helped with bowels and RUQ discomfort in the past - RUQ discomfort has been present for many years - radiates through to his back at times - denies any N/V - denies any weight loss - denies any change with PO intake - 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 8pm in the evening making it hard to eat a balanced diet - reports walking can help alleviate RUQ discomfort - denies any alcohol - he is a non-smoker - Tylenol as needed - denies use of any NSAIDS - coffee daily B: skips L: often skips D: changes, not balanced RECALL EGD MAY 2025, COLONOSCOPY MAY 2032 [facility] Medical History Wears glasses Cardiology follow-up encounter Anxiety COVID-19 virus detected (07/06/21) Dyslipidemia Paroxysmal supraventricular tachycardia Type 2 diabetes mellitus Essential hypertension Superficial spreading malignant melanoma of skin Depression BPH (benign prostatic hyperplasia) Back problem GERD (gastroesophageal reflux disease) Home Medications ???Medication ???Instructions ???Recorded ???Last Taken ???Type metformin 1,000 mg tablet 1,000 mg PO BIDCM 10/21/21 Unknown History epinephrine 0.3 mg/0.3 mL 0.3 ml subcut ONCE PRN anaphylaxis 10/20/22 Unknown History injection, auto-injector fluticasone propionate 50 2 spray intranasal DAILY PRN nasal 10/20/22 Unknown History mcg/actuation nasal congestion spray,suspension amlodipine 10 mg tablet 10 mg PO DAILY #90 tabs 09/06/24 11/20/24 08:00 Rx carvedilol 25 mg tablet 25 mg PO BID #180 tabs 09/06/24 11/20/24 08:00 Rx losartan 100 mg tablet 100 mg PO DAILY #90 tabs 09/06/24 11/20/24 08:00 Rx atorvastatin 10 mg tablet (Lipitor) 10 mg PO QHS 09/24/24 Unknown History baclofen 10 mg tablet 10 mg PO QHS PRN pain 09/24/24 Unknown History esomeprazole magnesium 40 mg 40 mg PO DAILY #90 caps 09/24/24 11/20/24 08:00 Rx capsule,delayed release trazodone 100 mg tablet 50 mg PO QHS 09/24/24 Unknown History dicyclomine 10 mg capsule 10 mg PO QHS 11/15/24 Unknown History semaglutide 0.25 mg or 0.5 mg (2 0.5 mg subcut TU 11/15/24 11/13/24 History mg/3 mL) subcutaneous pen injector (Ozempic) Allergy/AdvReac Type Severity Reaction Status Date / Time tramadol Allergy Mild rash Verified 11/20/24 12:51 amitriptyline Allergy Hives Verified 11/20/24 12:51 bee venom protein (honey bee) Allergy Anaphylaxis Verified 11/20/24 12:51 Family History Mother Cancer lung Father Alzheimer disease Son Ulcerative colitis Surgical History History of radiofrequency ablation procedure for cardiac arrhythmia (2013) History of colonoscopy History of prostatectomy History of tonsillectomy History of repair of left rotator cuff Social History Smoking Status: Former smoker how long ago did patient quit smokin years ago alcohol intake: current alcohol intake frequency: holidays/special occasions only substance use type: does not use caffeine: Yes Type: coffee ROS Constitutional Constitutional: Denies fatigue, fever(s), poor appetite, weight gain or weight loss Gastrointestinal Gastrointestinal: Denies belching, bloating, change in bowel habits, change in stool character, chewing difficulty, coffee ground emesis, constipa (more content not included)...[facility]01-15-2025 NoteHNO ID: [id number] Author: RAUL DOMINGO LPN Service: ? Author Type: LICENSED NURSE Type: Progress Notes Filed: 11/14/2024 09:48 Note Text: Scan on 11/14/2024 8:16 AM by ProviderZia PA-C: [facility]-2025 History of Present illness Narrative* Raul Domingo LPN - 11/14/2024 9:47 AM EST Scan on 11/14/2024 8:16 AM by ProviderZia PAKelvinC: MRI documented in this encounterAvita [facility]01-08-2025 Telephone encounter Note * Telephone Encounter - Mary Beltran RN - 11/07/2024 1:29 PM EST [facility] reports the fax sent to them this morning needs resent, only received 2 pages out of 19, and the 2 they have are blurred and difficult to read. Re-faxed recent ov notes, demographics, consult order, lab results to [facility]- attn: Dr. Mireles, to fax # [phone] [facility]01-08-2025 Miscellaneous Notes* Telephone Encounter - Mary Beltran RN - 11/07/2024 1:29 PM EST [facility] reports the fax sent to them this morning needs resent, only received 2 pages out of 19, and the 2 they have are blurred and difficult to read. Re-faxed recent ov notes, demographics, consult order, lab results to [facility]- attn: Dr. Mireles, to fax # [phone] documented in this encounterAvita [facility]01-08-2025 Telephone encounter Note * Telephone Encounter - Milind Denis MA - 11/07/2024 12:03 PM EST Faxed information. Milind Denis MA [facility]01-08-2025 Miscellaneous Notes* Telephone Encounter - Milind Denis MA - 11/07/2024 12:03 PM EST Faxed information. Milind Denis MA * Telephone Encounter - Cruz Prado MD - 11/07/2024 11:19 AM EST Order placed. documented in this encounterAvita [facility]01-08-2025 Telephone encounter Note * Telephone Encounter - Cruz Prado MD - 11/07/2024 11:19 AM EST Order placed. [facility]12-30[facility] Telephone encounter Note* Telephone Encounter - Izabela Skelton RN - 10/29/2024 6:59 PM EST Routed BS strips in other medication order. Closing this TE. [facility]12-30-2024 Miscellaneous Notes* Telephone Encounter - Izabela Skelton RN - 10/29/2024 6:59 PM EST Routed BS strips in other medication order. Closing this TE. documented in this encounterAvita [facility]12-30-2024 Telephone encounter Note * Telephone Encounter - Izabela Skelton RN - 10/29/2024 6:58 PM EST The patient has been identified by name and date of : Yes Caregiver verified no other encounters exist for this prescription request: Yes Caregiver confirmed with patient/requestor that no other refills are due, in the near future, with this provider at this time: Yes The last office visit in the department: 07/12/2024 Does the patient have a future office visit with this provider/department: Yes 01/16/2025 Requested Prescriptions Pending Prescriptions Disp Refills metFORMIN (GLUCOPHAGE) 1,000 mg tablet 180 tablet 1 Sig: Take 1 tablet by mouth two times a day with meals. traZODone (DESYREL) 50 mg tablet 90 tablet 1 Sig: Take 1 tablet by mouth daily at bedtime. baclofen 10 mg tablet 90 tablet 1 Sig: Take 1 tablet by mouth three times a day as needed (muscle spasms). blood sugar diagnostic (BLOOD GLUCOSE TEST) test strip 200 Strip 4 Sig: Test blood sugar(s) 2 times daily. Dx: Other DM Code E11.22 Insulin: No Izabela Skelton RN October 29, 2024 6:58 PM [facility]12-30-2024 Miscellaneous Notes* Telephone Encounter - Izabela Skelton RN - 10/29/2024 6:58 PM EST The patient has been identified by name and date of : Yes Caregiver verified no other encounters exist for this prescription request: Yes Caregiver confirmed with patient/requestor that no other refills are due, in the near future, with this provider at this time: Yes The last office visit in the department: 07/12/2024 Does the patient have a future office visit with this provider/department: Yes 01/16/2025 Requested Prescriptions Pending Prescriptions Disp Refills metFORMIN (GLUCOPHAGE) 1,000 mg tablet 180 tablet 1 Sig: Take 1 tablet by mouth two times a day with meals. traZODone (DESYREL) 50 mg tablet 90 tablet 1 Sig: Take 1 tablet by mouth daily at bedtime. baclofen 10 mg tablet 90 tablet 1 Sig: Take 1 tablet by mouth three times a day as needed (muscle spasms). blood sugar diagnostic (BLOOD GLUCOSE TEST) test strip 200 Strip 4 Sig: Test blood sugar(s) 2 times daily. Dx: Other DM Code E11.22 Insulin: No Izabela Skelton RN October 29, 2024 6:58 PM documented in this encounterAvita [facility]12-23-2024 Telephone encounter Note * Telephone Encounter - Raul Doimngo LPN - 10/22/2024 10:01 AM EST Please see pt's message. Raul Domingo LPN [facility]12-23-2024 Miscellaneous Notes* Telephone Encounter - Raul Domingo LPN - 10/22/2024 10:01 AM EST Please see pt's message. Raul Domingo LPN documented in this encounterAvita [facility]12-20-2024 Telephone encounter Note * Telephone Encounter - Shabana Reed LPN - 10/19/2024 10:21 AM EST Patient calling asking about PA, went over notes below with understanding. [facility]12-20-2024 Miscellaneous Notes* Telephone Encounter - Shabana Reed LPN - 10/19/2024 10:21 AM EST Patient calling asking about PA, went over notes below with understanding. * Telephone Encounter - Patricia Johnson LPN - 10/19/2024 8:33 AM EST Appeal approval rec'd for Ozmepic 0.25/0.5mg pens from 10/18/24 to 10/17/25. Pharmacy notified and pt via my chart. * Telephone Encounter - Geri Baptiste MA - 10/18/2024 11:52 AM EST PA is denied did call Rx benefits to see why denied and was due to documetntaion not received. Completed all new PA and faxed with chart notes/a1c Geri Baptiste MA * Telephone Encounter - Patricia Johnson LPN - 10/17/2024 3:24 PM EST Images from the original note were not included. PA completed for ozemppic. documented in this encounterAvita [facility]12-20-2024 Telephone encounter Note * Telephone Encounter - Patricia Johnson LPN - 10/19/2024 8:33 AM EST Appeal approval rec'd for Ozmepic 0.25/0.5mg pens from 10/18/24 to 10/17/25. Pharmacy notified and pt via my chart. [facility]12-19-2024 Telephone encounter Note* Telephone Encounter - Geri Baptiste MA - 10/18/2024 11:52 AM EST PA is denied did call Rx benefits to see why denied and was due to documetntaion not received. Completed all new PA and faxed with chart notes/a1c Geri Baptiste MA [facility]12-19-2024 Telephone encounter Note* Telephone Encounter - Cruz Prado MD - 10/18/2024 9:31 AM EST The following approved medication requests have been transmitted electronically. Requested Prescriptions Signed Prescriptions Disp Refills blood sugar diagnostic (BLOOD GLUCOSE TEST) test strip 200 Strip 4 Sig: Test blood sugar(s) 2 times daily. Dx: Other DM Code E11.22 Insulin: No Authorizing Provider: CRUZ PRADO Lancets 100 Each 11 Sig: Test blood sugar(s) 2 times daily. Dx: Other DM Code E11.22 Insulin: No Authorizing Provider: CRUZ PRADO Blood-Glucose Meter monitoring kit 1 Each 0 Sig: Glucose Meter of Choice - Kit - Dx: Other DM Code E11.22 Authorizing Provider: CRUZ PRADO MD [facility]12-19-2024 Miscellaneous Notes* Telephone Encounter - Cruz Prado MD - 10/18/2024 9:31 AM EST The following approved medication requests have been transmitted electronically. Requested Prescriptions Signed Prescriptions Disp Refills blood sugar diagnostic (BLOOD GLUCOSE TEST) test strip 200 Strip 4 Sig: Test blood sugar(s) 2 times daily. Dx: Other DM Code E11.22 Insulin: No Authorizing Provider: CRUZ PRADO Lancets 100 Each 11 Sig: Test blood sugar(s) 2 times daily. Dx: Other DM Code E11.22 Insulin: No Authorizing Provider: CRUZ PRADO Blood-Glucose Meter monitoring kit 1 Each 0 Sig: Glucose Meter of Choice - Kit - Dx: Other DM Code E11.22 Authorizing Provider: CRUZ PRADO MD * Telephone Encounter - Mary Beltran RN - 10/18/2024 9:09 AM EST Pt reports his glucose meter is old and doesn't work. Asking pcp to send new meter, strips, lancetsto [facility]. Pended. Last ov: 07-12-24 Next ov: 01-16-25 documented in this encounterAvita Health [facility]12-19-2024 Telephone encounter Note * Telephone Encounter - Mary Beltran RN - 10/18/2024 9:09 AM EST Pt reports his glucose meter is old and doesn't work. Asking pcp to send new meter, strips, lancetsto [facility] pharmacy. Pended. Last ov: 07-12-24 Next ov: 01-16-25 [facility]12-18-[facility] Telephone encounter Note* Telephone Encounter - Patricia Johnson LPN - 10/17/2024 3:24 PM EST Images from the original note were not included. PA completed for ozemppic. [facility]12-18-2024 NoteHNO ID: [id number] Author: MILIND DENIS MA Service: ? Author Type: Flavoring Maker Type: Progress Notes Filed: 10/17/2024 14:04 Note Text: Scan on 10/15/2024 3:27 PM by Provider, NELY Lizarraga: Ultrasound US - elastography. [facility]12[facility] History of Present illness Narrative* Milind Denis MA - 10/17/2024 2:03 PM EST Scan on 10/15/2024 3:27 PM by Provider, NELY Lizarraga: Ultrasound US - elastography. Milind Denis MA documented in this encounterAvita Health System [facility]12-18-2024 Telephone encounter Note * Telephone Encounter - Milind Denis MA - 10/17/2024 10:41 AM EST Patient notified and voiced understanding. Milind Denis MA [facility]12-18-2024 Miscellaneous Notes* Telephone Encounter - Milind Denis MA - 10/17/2024 10:41 AM EST Patient notified and voiced understanding. Milind Denis MA * Telephone Encounter - Cruz Prado MD - 10/17/2024 10:13 AM EST Let patient know script for Ozempic at starting dose sent. The following approved medication requests have been transmitted electronically. Requested Prescriptions Signed Prescriptions Disp Refills semaglutide (OZEMPIC) 0.25 mg or 0.5 mg (2 mg/3 mL) pen 1 Each 1 Sig: Inject 0.25 mg subcutaneously one time a week. Authorizing Provider: CRUZ PRADO MD * Telephone Encounter - Kori Mike LPN - 10/17/2024 9:22 AM EST Pt calling to let you know he has been off the Trulicity for 2 months due to change in insurance. Pt was given the higher dose of Trulicity but felt he needed to start back on the lower dose. Pt's insurance will not cover the lower dose. Pt would like to not take Trulicity and start on Ozempic at the lower dose. Please advise pt. Kori Mike LPN documented in this encounterAvita Health [facility]12-18-2024 Telephone encounter Note * Telephone Encounter - Cruz Prado MD - 10/17/2024 10:13 AM EST Let patient know script for Ozempic at starting dose sent. The following approved medication requests have been transmitted electronically. Requested Prescriptions Signed Prescriptions Disp Refills semaglutide (OZEMPIC) 0.25 mg or 0.5 mg (2 mg/3 mL) pen 1 Each 1 Sig: Inject 0.25 mg subcutaneously one time a week. Authorizing Provider: CRUZ PRADO MD [facility]12-18-2024 Telephone encounter Note* Telephone Encounter - Kori Mike LPN - 10/17/2024 9:22 AM EST Pt calling to let you know he has been off the Trulicity for 2 months due to change in insurance. Pt was given the higher dose of Trulicity but felt he needed to start back on the lower dose. Pt's insurance will not cover the lower dose. Pt would like to not take Trulicity and start on Ozempic at the lower dose. Please advise pt. Kori Mike LPN [facility]12-09-2024 Telephone encounter Note* Telephone Encounter - Raul Domingo LPN - 10/08/2024 12:55 PM EST Spoke with pt and advised him of Anette's message and instructions. Pt verbalizes understanding. Pt was not where he could write down denny phone numbers. Advised pt that this nurse could send them to him through My Chart. Pt agreeable to this. Phone numbers to [facility] billing sent to pt via . Raul Domingo LPN [facility]12-09-2024 Miscellaneous Notes* Telephone Encounter - Raul Domingo LPN - 10/08/2024 12:55 PM EST Spoke with pt and advised him of Anette's message and instructions. Pt verbalizes understanding. Pt was not where he could write down denny phone numbers. Advised pt that this nurse could send them to him through My Chart. Pt agreeable to this. Phone numbers to [facility] billing sent to pt via . Raul Domingo LPN * Telephone Encounter - Anette Arreola PA-C - 10/08/2024 11:13 AM EST The visit occurred. He will need to speak with the financial department if he is concerned about cost. Anette Arreola PA-C * Telephone Encounter - Milind Denis MA - 10/08/2024 11:02 AM EST Was speaking to the patient regarding his medications and he indicated that was billed for $840.00 for an office visit in 07/12/2024. Patient indicated that he has no recollection of coming in and the reason he wouldn't have come in because he was without insurance from July until August so he didn't come in as to not incur any medication bills and he would not have come in for just a follow up. I explained that it shows that an appointment was made; and he checked into the [employer] machine on 07/12/12 and that Anette did a routine visit. I indicated that vitals were completed and complete chart shows. Again patient indicated that he didn't come in. Milind Denis MA documented [facility] encounter[facility] Telephone encounter Note * Telephone Encounter - Anette Arreola PA-C - 10/08/2024 11:13 AM EST The visit occurred. He will need to speak with the financial department if he is concerned about cost. Anette Arreola PA-C [facility]12-09-2024 Miscellaneous Notes* Telephone Encounter - Cruz Prado MD - 10/08/2024 11:11 AM EST The following approved medication requests have been transmitted electronically. Requested Prescriptions Signed Prescriptions Disp Refills dulaglutide (TRULICITY) 0.75 mg/0.5 mL pen injector 1 Each 0 Sig: Inject 0.75 mg subcutaneously one time a week. Inject dose once per week. Discard Pen After Authorizing Provider: CRUZ PRADO MD * Telephone Encounter - Milind Denis MA - 10/08/2024 11:00 AM EST Spoke with patient and gave instructions. Patient would like this to go [facility] pharmacy. [facility]. Milind Denis MA * Telephone Encounter - Cruz Prado MD - 10/08/2024 10:21 AM EST Let patient know he needs to start back at the starting dose of 0.75 mg a week for the first month and then go back to the 1.5 mg dosing. The following approved medication requests have been transmitted electronically. Requested Prescriptions Signed Prescriptions Disp Refills dulaglutide (TRULICITY) 0.75 mg/0.5 mL pen injector 1 Each 0 Sig: Inject 0.75 mg subcutaneously one time a week. Inject dose once per week. Discard Pen After Authorizing Provider: CRUZ PRADO MD * Telephone Encounter - Jenn Goodman RN - 10/08/2024 10:00 AM EST Patient calls to ask about Trulicity 1.5 mg. Patient reports that he went without Trulicity for twomonths because of insurance. He now has Trulicity medication back. Took first dose last Tuesday10/01/2024 and experienced facial flushing and face felt like it was on fire for a couple of days. No breathing difficulties. Patient asking if he should continue taking the Trulicity 1.5 mg dose or should he have started back on the lower dose (he would need a prescription for this). Please review and advise, Jenn Goodman RN documented in this encounterAv[facility]12-[facility]24 Telephone encounter Note * Telephone Encounter - Cruz rPado MD - 10/08/2024 11:11 AM EST The following approved medication requests have been transmitted electronically. Requested Prescriptions Signed Prescriptions Disp Refills dulaglutide (TRULICITY) 0.75 mg/0.5 mL pen injector 1 Each 0 Sig: Inject 0.75 mg subcutaneously one time a week. Inject dose once per week. Discard Pen After Authorizing Provider: CRUZ PRADO MD [facility]12-09-[facility]24 Telephone encounter Note* Telephone Encounter - Milind Denis MA - 10/08/2024 11:02 AM EST Was speaking to the patient regarding his medications and he indicated that was billed for $840.00 for an office visit in 07/12/2024. Patient indicated that he has no recollection of coming in and the reason he wouldn't have come in because he was without insurance from July until August so he didn't come in as to not incur any medication bills and he would not have come in for just a follow up. I explained that it shows that an appointment was made; and he checked into the [employer] machine on 07/12/12 and that Anette did a routine visit. I indicated that vitals were completed and complete chart shows. Again patient indicated that he didn't come in. Milind Denis MA [facility]12-09-2024 Telephone encounter Note* Telephone Encounter - Milind Denis MA - 10/08/2024 11:00 AM EST Spoke with patient and gave instructions. Patient would like this to go [facility] pharmacy. [facility]. Milind Denis MA [facility]12-09-2024 Telephone encounter Note* Telephone Encounter - Cruz Prado MD - 10/08/2024 10:21 AM EST Let patient know he needs to start back at the starting dose of 0.75 mg a week for the first month and then go back to the 1.5 mg dosing. The following approved medication requests have been transmitted electronically. Requested Prescriptions Signed Prescriptions Disp Refills dulaglutide (TRULICITY) 0.75 mg/0.5 mL pen injector 1 Each 0 Sig: Inject 0.75 mg subcutaneously one time a week. Inject dose once per week. Discard Pen After Authorizing Provider: CRUZ PRADO MD [facility]12-09-2024 Telephone encounter Note* Telephone Encounter - Jenn Goodman RN - 10/08/2024 10:00 AM EST Patient calls to ask about Trulicity 1.5 mg. Patient reports that he went without Trulicity for twomonths because of insurance. He now has Trulicity medication back. Took first dose last Tuesday10/01/2024 and experienced facial flushing and face felt like it was on fire for a couple of days. No breathing difficulties. Patient asking if he should continue taking the Trulicity 1.5 mg dose or should he have started back on the lower dose (he would need a prescription for this). Please review and advise, Jenn Goodman RN [facility]11-27-2024 Telephone encounter Note* Telephone Encounter - Geri Baptiste MA - 09/26/2024 3:05 PM EST PA approved till 09/23/25 and was faxed to pharmacy. Patient was notified. Geri Baptiste MA [facility]11-27-2024 Miscellaneous Notes* Telephone Encounter - Geri Baptiste MA - 09/26/2024 3:05 PM EST PA approved till 09/23/25 and was faxed to pharmacy. Patient was notified. Geri Baptiste MA * Telephone Encounter - Geri Baptiste MA - 09/24/2024 3:22 PM EST Images from the original note were not included. Rx needs completed through [facility] Completed through portal Prior Auth (EOC) ID: [id number] MemberID: [id number] [email or web address] [email or web address]_medium=referral&utm_campaign=prior+auth+page * Telephone Encounter - Patricia Johnson LPN - 09/21/2024 3:08 PM EST ELECTRONIC PA REC'D AND COMPLETED FOR TRULICITY documented in this encounterAv[facility]11-25-2024 Telephone encounter Note * Telephone Encounter - Geri Baptiste MA - 09/24/2024 3:22 PM EST Images from the original note were not included. Rx needs completed through [facility] Completed through portal Prior Auth (EOC) ID: [id number] MemberID: [id number] [email or web address]_sou [email or web address]&utm_medium=referral&utm_campaign=prior+auth+page [facility]11-22-2024 Telephone encounter Note* Telephone Encounter - Patricia Johnson LPN - 09/21/2024 3:08 PM EST ELECTRONIC PA REC'D AND COMPLETED FOR TRULICITY [facility]11-22-2024 Telephone encounter Note* Telephone Encounter - Irma Schmid - 09/21/2024 1:11 PM EST Patient switched insurance at the beginning of the month and the Trulicity needs a Prior Authorization. Insurance updated. Please run Prior Authorization and send script to [facility]. [facility]11-22-2024 Miscellaneous Notes* Telephone Encounter - Irma Schmid - 09/21/2024 1:11 PM EST Patient switched insurance at the beginning of the month and the Trulicity needs a Prior Authorization. Insurance updated. Please run Prior Authorization and send script to [facility]. * Telephone Encounter - Irma Schmid - 09/21/2024 1:03 PM EST Prescription Refill Information The patient has been identified by name and date of : Yes Caregiver verified no other encounters exist for this prescription request: Yes Caregiver confirmed with patient/requestor that no other refills are due, in the near future, with this provider at this time: Yes The last office visit in the department: 07-12-24 Does the patient have a future office visit with this provider/department: Yes Requested Prescriptions Pending Prescriptions Disp Refills dulaglutide (TRULICITY) 1.5 mg/0.5 mL pen injector 12 Each 1 Sig: Inject 1.5 mg subcutaneously one time a week. Inject once per week. Discard Pen After Irma Collier September 21, 2024 1:10 PM documented in this encounterAv[facility]11-22-2024 Telephone encounter Note * Telephone Encounter - Irma Schmdi - 09/21/2024 1:03 PM EST Prescription Refill Information The patient has been identified by name and date of : Yes Caregiver verified no other encounters exist for this prescription request: Yes Caregiver confirmed with patient/requestor that no other refills are due, in the near future, with this provider at this time: Yes The last office visit in the department: 07-12-24 Does the patient have a future office visit with this provider/department: Yes Requested Prescriptions Pending Prescriptions Disp Refills dulaglutide (TRULICITY) 1.5 mg/0.5 mL pen injector 12 Each 1 Sig: Inject 1.5 mg subcutaneously one time a week. Inject once per week. Discard Pen After Irma Mary Collier September 21, 2024 1:10 PM [facility]11-12-[facility]24 Telephone encounter Note* Telephone Encounter - Milind Denis MA - 09/11/2024 10:31 AM EST Let patient know I received a copy of his Hep B immunity test which shows he is not immune. He needs to get the Hep- B series. Milind Denis MA Spoke with patient and he just finished his series. Milind Denis MA [facility]11-12-2024 Miscellaneous Notes* Telephone Encounter - Milind Denis MA - 09/11/2024 10:31 AM EST Let patient know I received a copy of his Hep B immunity test which shows he is not immune. He needs to get the Hep- B series. Milind Denis MA Spoke with patient and he just finished his series. Milind Denis MA documented in this encounterAvita [facility]11-08-2024 NoteHNO ID: [id number] Author: CRUZ PRADO MD Service: ? Author Type: Physician Type: Progress Notes Filed: 09/07/2024 13:11 Note Text: Let patient know I received a copy of his Hep B immunity test which shows he is not immune. He needs to get the Hep- B series.[facility] 09-07-2024 History of Present illness Narrative* Cruz Prado MD - 09/07/2024 1:10 PM EST Let patient know I received a copy of his Hep B immunity test which shows he is not immune. He needs to get the Hep- B series. * Raul Domingo LPN - 09/07/2024 11:27 AM EST Scan on 09/07/2024 9:34 AM by ProviderZia PA-C: Chemistry documented in this encounterAvita [facility]11-08-2024 NoteHNO ID: [id number] Author: RAUL DOMINGO LPN Service: ? Author Type: LICENSED NURSE Type: Progress Notes Filed: 09/07/2024 11:27 Note Text: Scan on 09/07/2024 9:34 AM by ProviderZia PA-C: [facility]24 Telephone encounter Note* Telephone Encounter - Miranda Landry - 08/31/2024 11:49 AM EDT Prescription Refill Information The patient has been identified by name and date of : Yes Caregiver verified no other encounters exist for this prescription request: Yes Caregiver confirmed with patient/requestor that no other refills are due, in the near future, with this provider at this time: Yes The last office visit in the department: 07-12-24 Does the patient have a future office visit with this provider/department: Yes 01-16-25 Requested Prescriptions Pending Prescriptions Disp Refills esomeprazole (NEXIUM) 40 mg capsule 90 capsule 1 Sig: Take 1 capsule by mouth once daily. ferrous sulfate (SLOW FE) 137 mg (45 mg iron) TbER 90 tablet 1 Sig: Take 1 tablet by mouth every other day. metFORMIN (GLUCOPHAGE) 1,000 mg tablet 180 tablet 1 Sig: Take 1 tablet by mouth two times a day with meals. traZODone (DESYREL) 50 mg tablet 90 tablet 1 Sig: Take 1 tablet by mouth daily at bedtime. baclofen 10 mg tablet 90 tablet 1 Sig: Take 1 tablet by mouth three times a day as needed (muscle spasms). dulaglutide (TRULICITY) 1.5 mg/0.5 mL pen injector 12 Each 1 Sig: Inject 1.5 mg subcutaneously one time a week. Inject once per week. Discard Pen After dicyclomine (BENTYL) 10 mg capsule 120 capsule 1 Sig: Take 1 capsule by mouth before meals and at bedtime. EPINEPHrine (AUVI-Q) 0.3 mg/0.3 mL auto-injector 1 Each 1 Sig: Inject 0.3 mL intramuscularly as needed. fluticasone (FLONASE) 50 mcg/actuation nasal spray 1 Each 0 Sig: Use 2 Sprays in each nostril once daily. Rinse mouth after use. Patient got a new insurance and can no longer get medication thru mail order; [facility] toldpatient to call office for new prescriptions to be sent to them. Miranda Collier August 31, 2024 11:56 AM [facility]11-01-2024 Miscellaneous Notes* Telephone Encounter - Miranda Landry - 08/31/2024 11:49 AM EDT Prescription Refill Information The patient has been identified by name and date of : Yes Caregiver verified no other encounters exist for this prescription request: Yes Caregiver confirmed with patient/requestor that no other refills are due, in the near future, with this provider at this time: Yes The last office visit in the department: 07-12-24 Does the patient have a future office visit with this provider/department: Yes 01-16-25 Requested Prescriptions Pending Prescriptions Disp Refills esomeprazole (NEXIUM) 40 mg capsule 90 capsule 1 Sig: Take 1 capsule by mouth once daily. ferrous sulfate (SLOW FE) 137 mg (45 mg iron) TbER 90 tablet 1 Sig: Take 1 tablet by mouth every other day. metFORMIN (GLUCOPHAGE) 1,000 mg tablet 180 tablet 1 Sig: Take 1 tablet by mouth two times a day with meals. traZODone (DESYREL) 50 mg tablet 90 tablet 1 Sig: Take 1 tablet by mouth daily at bedtime. baclofen 10 mg tablet 90 tablet 1 Sig: Take 1 tablet by mouth three times a day as needed (muscle spasms). dulaglutide (TRULICITY) 1.5 mg/0.5 mL pen injector 12 Each 1 Sig: Inject 1.5 mg subcutaneously one time a week. Inject once per week. Discard Pen After dicyclomine (BENTYL) 10 mg capsule 120 capsule 1 Sig: Take 1 capsule by mouth before meals and at bedtime. EPINEPHrine (AUVI-Q) 0.3 mg/0.3 mL auto-injector 1 Each 1 Sig: Inject 0.3 mL intramuscularly as needed. fluticasone (FLONASE) 50 mcg/actuation nasal spray 1 Each 0 Sig: Use 2 Sprays in each nostril once daily. Rinse mouth after use. Patient got a new insurance and can no longer get medication thru mail order; [facility] toldpatient to call office for new prescriptions to be sent to them. Miranda Collier August 31, 2024 11:56 AM documented in this encounterAvita [facility]10-[facility]24 Telephone encounter Note * Telephone Encounter - Bebe Hines RN - 08/20/2024 1:47 PM EDT Patient calling to request referral to GASTRO be faxed to [facility]. Order from 01/31/24, demographics and OV note faxed per request. Bebe Hines RN [facility]10-21-2024 Miscellaneous Notes* Telephone Encounter - Bebe Hines RN - 08/20/2024 1:47 PM EDT Patient calling to request referral to GASTRO be faxed to [facility]. Order from 01/31/24, demographics and OV note faxed per request. Bebe Hines RN documented in this encounterAvita [facility]10-21-2024 Telephone encounter Note * Telephone Encounter - Milind Denis MA - 08/20/2024 10:14 AM EDT Prescription Refill Information The patient has been identified by name and date of : Yes Caregiver verified no other encounters exist for this prescription request: Yes Caregiver confirmed with patient/requestor that no other refills are due, in the near future, with this provider at this time: Yes The last office visit in the department: 07/2024 Does the patient have a future office visit with this provider/department: Yes 12/2024 Requested Prescriptions Pending Prescriptions Disp Refills esomeprazole (NEXIUM) 40 mg capsule 90 capsule 1 Sig: Take 1 capsule by mouth once daily. Milind Denis MA August 20, 2024 10:14 AM [facility] Miscellaneous Notes* Telephone Encounter - Milind Denis MA - 08/20/2024 10:14 AM EDT Prescription Refill Information The patient has been identified by name and date of : Yes Caregiver verified no other encounters exist for this prescription request: Yes Caregiver confirmed with patient/requestor that no other refills are due, in the near future, with this provider at this time: Yes The last office visit in the department: 07/2024 Does the patient have a future office visit with this provider/department: Yes 12/2024 Requested Prescriptions Pending Prescriptions Disp Refills esomeprazole (NEXIUM) 40 mg capsule 90 capsule 1 Sig: Take 1 capsule by mouth once daily. Milind Denis MA August 20, 2024 10:14 AM * Telephone Encounter - An Renee - 08/20/2024 9:56 AM EDT Patient requesting the following medication that is no longer on list. Patient last seen: 07-12-24 Future visit scheduled: yes PHARMACY: [facility] documented in this encounterAvita [facility]10-[facility]24 Telephone encounter Note * Telephone Encounter - An Renee - 08/20/2024 9:56 AM EDT Patient requesting the following medication that is no longer on list. Patient last seen: 07-12-24 Future visit scheduled: yes [facility]ARMACY: [facility] History of Present illness Narrative* Anette Arreola PA-C - 07/12/2024 10:03 AM EDT Chief Complaint Patient presents with: form completion for insurance HPI Dar Rose is a 68 year old male who presents here today for Chronic Medical Conditions.. Patient with hx of HTN, hyperlipidemia, SVT, DM2, CKD, Matthew's melanoma, and those as below. Patient overall doing okay. Has follow up with cardio soon. Last 6 Encounter BP Readings: Date: BP: 07/12/2024 148/78 05/02/2024 130/70 04/12/2024 158/80 04/04/2024 120/64 04/02/2024 134/68 01/31/2024 142/80 Past medical history, appointments, medications, allergies reviewed. 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 12/02/2021: Basal cell carcinoma 01/21/2023: Bilateral hip pain No date: BPH (benign prostatic hyperplasia) Comment: s/p removal 09/22/2023: Callus of foot Comment: Seeing podiatry 02/24/2019: Chronic insomnia 02/24/2019: Controlled type 2 diabetes mellitus with stage 3 chronic kidney disease, without long-term current use of insulin ([facility]) 01/30/2018: Decreased libido 05/30/2015: Degenerative retinal drusen of both eyes 03/18/2022: Diabetic eye exam ([facility]) Comment: Last done 01/05/22 Non-Proliferative Diabetic Retinopathy mild [facility] 05/20/2021: ED (erectile dysfunction) 06/06/2006: Essential hypertension, benign 05/20/2021: Ex-smoker Comment: Started age 16, up to 2 PPD quit age 21 05/20/2021: Gastroesophageal reflux disease with esophagitis without hemorrhage No date: Herniated lumbar intervertebral disc No date: History of BPH Comment: s/p removal No date: History of depression 06/21/2020: Iron deficiency anemia 07/31/2021: Irritable bowel syndrome with both constipation and diarrhea 01/30/2018: Leg cramps 10/13/2022: Living will on file at physician's office Comment: DPA: catherine () 06/21/2020: Low testosterone in male 02/24/2019: Lumbar radiculopathy 05/18/2023: Lumbar spinal stenosis Comment: MRI 02/2023- [facility] 02/11/2020: Malignant melanoma of torso excluding breast (HCC) 03/20/2013: Mixed hyperlipidemia 05/30/2015: Nuclear sclerotic cataract of both eyes 10/13/2022: Pain in both lower extremities 09/09/2017: Peripheral retinal degeneration, paving stone, bilateral 08/30/2022: Peripheral sensory neuropathy due to type 2 diabetes mellitus ([facility]) 09/22/2023: Post-COVID chronic fatigue Comment: Along with HS's and body aches: Has FMLA for 08/31/2016: Posterior vitreous detachment of left eye 09/09/2017: Posterior vitreous detachment of right eye 08/10/2021: Renal cyst, right Comment: Simple, benign US 07/202103/19/2022: Retinopathy Comment: Mild B/l No date: Rotator cuff tear, left 05/17/2017: Senile nuclear sclerosis 09/09/2017: Senile nuclear sclerosis, bilateral 05/20/2021: SVT (supraventricular tachycardia) ([facility]) Comment: Treated with Ablation: 201312/30/2023: Tinnitus of both ears 09/09/2017: Type 2 diabetes mellitus with retinopathy, without long- term current use of insulin ([facility]) 01/30/2018: Uncontrolled type 2 diabetes mellitus with stage 3 chronic kidney disease, without long-term current use of insulin 05/30/2015: Vitreous syneresis of both eyes 08/23/2022: Well adult exam Previous Surgical History PAST SURGICAL HISTORY 2012: COLONOSCOPY 06/01/2022: COLONOSCOPY 08/21/2018: COLONOSCOPY FLX DX W/COLLJ SPEC WHEN PFRMD Comment: repeat 5 years 06/01/2022: EGD 08/21/2018: ESOPHAGOGASTRODUODENOSCOPY TRANSORAL DIAGNOSTIC Comment: repeat 2 years 01/05/2018: FASCT PALM W/WO Z-PLASTY TISSUE REARGMT/SKN GRFT; Left Comment: A1 sánchez release ring finger No date: HEART SURGERY HX 09/15/2023: INCISE FINGER TENDON SHEATH Comment: Ring trigger finger release Right ring open palmar fasciectomy 02/02/2019: LAPS PROSTECT RETROPUBIC RAD W/NRV SPARING ROBOT Comment: for enlarged prostate 1999: PAST SURGICAL HISTORY OF Comment: rotator cuff left 2013: PAST SURGICAL HISTORY OF Comment: ablation, SVT No date: TONSILLECTOMY HX Family History FAMILY HISTORY Problem Relation Age of Onset other (cancer, lung) Mother Alzheimer's Disease Father No Known Problems Sister Heart Attack Brother No Known Problems Maternal Grandmother No Known Problems Maternal Grandfather No Known Problems Paternal Grandmother No Known Problems Paternal Grandfather Patient Allergies ALLERGIES Allergen Reactions Bee Sting Anaphylaxis Amitriptyline Intolerance Did not tolerate. Tramadol Vomiting Current Medications Current Outpatient Medications on File Prior to Visit Medication Sig atorvastatin (LIPITOR) 10 mg tablet Take 1 tablet by mouth daily at bedtime. For cholesterol. docusate sodium (COLACE) 100 mg capsule Take 1 capsule by mouth two times a day as needed for constipation. esomeprazole (NEXIUM) 40 mg capsule Take 1 capsule by mouth once daily. ferrous sulfate (SLOW FE) 137 mg (45 mg iron) TbER Take 1 tablet by mouth every other day. metFORMIN (GLUCOPHAGE) 1,000 mg tablet Take 1 tablet by mouth two times a day with meals. traZODone (DESYREL) 50 mg tablet Take 1 tablet by mouth daily at bedtime. baclofen 10 mg tablet Take 1 tablet by mouth three times a day as needed (muscle spasms). ondansetron orally disintegrating (ZOFRAN ODT) 4 mg disintegrating tablet Take 1 tablet by mouth every 6 hours as needed for nausea/vomiting. dulaglutide (TRULICITY) 1.5 mg/0.5 mL pen injector Inject 1.5 mg subcutaneously one time a week. Inject once per week. Discard Pen After dicyclomine (BENTYL) 10 mg capsule Take 1 capsule by mouth before meals and at bedtime. (Patient taking differently: Take 10 mg by mouth before meals and at bedtime. PRN) EPINEPHrine (AUVI-Q) 0.3 mg/0.3 mL auto-injector Inject 0.3 mL intramuscularly as needed. blood sugar diagnostic (BLOOD GLUCOSE TEST) test strip Test blood sugar(s) 2 times daily. Dx: OtherDM Code E11.22 Insulin: Yes fluticasone (FLONASE) 50 mcg/actuation nasal spray Use 2 Sprays in each nostril once daily. Rinse mouth after use. losartan (COZAAR) 100 mg tablet Take 1 tablet by mouth once daily. carvedilol (COREG) 25 mg tablet Take 1 tablet by mouth twice daily. Per Cardio, Dr. Schneider amLODIPine (NORVASC) 10 mg tablet Take 1 tablet by mouth once daily. Per Cardio, Dr. Schneider Lancets lancets Test blood sugar(s) 2 times daily. Dx: Other DM Code E11.22 Insulin: Yes No current facility-administered medications on file prior to visit. Social History Social History Tobacco Use Smoking status: Former Smokeless tobacco: Never Tobacco comments: quit around 1983 Vaping Use Vaping status: Never Used Substance Use Topics Alcohol use: Yes Comment: seldom beer Drug use: No Review of Symptoms REVIEW OF SYSTEMS GENERAL: No weight loss, malaise or fevers NECK: Negative for lumps, goiter, pain and significant neck swelling RESPIRATORY: Negative for cough, hemoptysis, wheezing, COPD, dyspnea or shortness of breath CARDIOVASCULAR: Negative for chest pain, leg swelling, hypertension, CHF or palpitations NEURO: No history of headaches, syncope, paralysis, seizures or tremors EXAM: BP 148/78 (BP Site: Left Arm, BP Position: Sitting, BP Cuff Size: Regular Adult) Pulse 74 Temp 36.5 C (97.7 F) Resp 16 Wt 90.3 kg (199 lb) SpO2 98% BMI 29.60 kg/m BP 139/80 (BP Site: Right Arm, BP Position: Sitting, BP Cuff Size: Regular Adult) Pulse 75 Temp36.5 C (97.7 F) Resp 16 Wt 90.3 kg (199 lb) SpO2 98% BMI 29.60 kg/m General Appearance: Well appearing, alert, in no acute distress, well-hydrated, well nourished.. Neck: Supple, no adenopathy; thyroid symmetric, normal size, no bruits. Lungs: Lungs clear to auscultation. No wheezing, rhonchi, rales.. Heart: RRR without murmur, gallop, or rubs. No ectopy. Extremities: No deformities, edema, skin discoloration, clubbing or cyanosis. Good capillary refill. . Peripheral Pulses: Normal. Health Maintenance List Depression Screening Never done Covid-19 Vaccine(3 - season) due on 07/01/2024 Influenza Vaccine(1) due on 07/01/2024 RSV Vaccine(1 - 1-dose 60+ series) due on 12/29/2024 Shingrix Vaccine(1 of 2) due on 12/29/2024 Urine Albumin:Creatinine Ratio due on 11/25/2024 HbA1C due on 11/28/2024 BP Controlled (<130/80) due on 12/29/2024 Annual PCP Team Chronic Disease Visit due on 05/02/2025 LDL Cholesterol due on 05/28/2025 Serum Creatinine due on 05/28/2025 Hemoglobin/Hematocrit due on 05/28/2025 Dilated Retinal Exam due on 06/01/2025 Diabetic Foot Exam due on 06/07/2025 DTaP,Tdap,Td Vaccine(2 - Td or Tdap) due on 03/13/2027 Colorectal Cancer Screening due on 06/01/2027 Abdominal Aortic Aneurysm Screening Completed Advance Directive Discussion Completed Hepatitis C Screening Completed Pneumococcal Vaccine: 65+ Completed HPV Vaccine Aged Out Data reviewed Latest Ref Rng 05/28/2024 WBC 3.70 - 11.00 k/uL 8.53 RBC 4.20 - 6.00 m/uL 4.62 Hemoglobin 13.0 - 17.0 g/dL 13.0 Hematocrit 39.0 - 51.0 % 40.4 MCV 80.0 - 100.0 fL 87.4 MCH 26.0 - 34.0 pg 28.1 MCHC 30.5 - 36.0 g/dL 32.2 RDW-CV 11.5 - 15.0 % 13.1 Platelet Count 150 - 400 k/uL 293 MPV 9.0 - 12.7 fL 10.5 Neut% % 70.5 Abs Neut (ANC) 1.45 - 7.50 k/uL 6.01 Lymph% % 15.2 Abs Lymph 1.00 - 4.00 k/uL 1.30 [place]% % 9.5 Abs [place] <0.87 k/uL 0.81 Eosin% % 3.3 Abs Eosin <0.46 k/uL 0.28 Baso% % 0.9 Abs Baso <0.11 k/uL 0.08 Immature Gran % % 0.6 IMMATURE GRANS (ABS) <0.10 k/uL 0.05 NRBC /100 WBC 0.0 Absolute nRBC <0.01 k/uL <0.01 DTYPE Auto Protein, Total 6.3 - 8.0 g/dL 7.2 Albumin 3.9 - 4.9 g/dL 4.4 Calcium 8.5 - 10.2 mg/dL 9.3 Bilirubin, Total 0.2 - 1.3 mg/dL 0.2 Alkaline Phosphatase 38 - 113 U/L 67 AST 14 - 40 U/L 18 ALT 10 - 54 U/L 24 Glucose 74 - 99 mg/dL 107 (H) BUN 9 - 24 mg/dL 21 Creatinine 0.73 - 1.22 mg/dL 1.62 (H) Sodium 136 - 144 mmol/L 139 Potassium 3.7 - 5.1 mmol/L 5.0 Chloride 98 - 107 mmol/L 103 CO2 22 - 30 mmol/L 24 Anion Gap 8 - 15 mmol/L 12 eGFR >=60 mL/min/1.73m 45 (L) Total Cholesterol, Nonfasting <200 mg/dL 163 Triglycerides, Nonfasting <150 mg/dL 271 (H) HDL Cholesterol, Nonfasting >39 mg/dL 35 (L) LDL Cholesterol, Nonfasting <100 mg/dL 74 Non HDL Cholesterol, Nonfasting <130 mg/dL 128 VLDL Cholesterol, Nonfasting <30 mg/dL 54 (H) Total Chol/HDL Ratio, Nonfasting <5.10 mg/dL 4.66 LDL/HDL Ratio, Nonfasting <2.54 mg/dL 2.11 Iron 41 - 186 ug/dL 69 TIBC 232 - 386 ug/dL 419 (H) Transferrin Saturation 15.0 - 57.0 % 16.5 Hemoglobin A1C 4.3 - 5.6 % 6.3 (H) Estimated Average Glucose mg/dL 134 ASSESSMENT/PLAN: 1. Essential hypertension, benign - ICD9: 401.1, ICD10: I10 (primary diagnosis) - Fair Control- managed by cardiology - Continue current medications - Recommend home blood pressure monitoring, to bring results to next visit - Encouraged sodium restriction, DASH or Mediterranean diet - Recommend regular aerobic exercise 2. Controlled type 2 diabetes mellitus with stage 3 chronic kidney disease, without long-term current use of insulin (HCC) - ICD9: 250.40, 585.3, ICD10: E11.22, N18.30 - Controlled - Continue current medications - eGFR: 45 Stable - Counseled on avoiding NSAIDs, adequate hydration 3. Type 2 diabetes mellitus with retinopathy, without long-term current use of insulin, macular edema presence unspecified, unspecified laterality, unspecified retinopathy severity (HCC) - ICD9: 250.50, 362.01, ICD10: E11.319 - Controlled - Continue current medications 4. Gastroesophageal reflux disease with esophagitis without hemorrhage - ICD9: 530.81, 530.10, ICD10: K21.00 - Discussed lifestyle modifications including losing weight, limiting caffeine, no meals three hours before sleep, and head of bed elevation 5. Stage 3a chronic kidney disease (HCC) - ICD9: 585.3, ICD10: N18.31 - eGFR: 45 Stable - Counseled on avoiding NSAIDs, adequate hydration 6. SVT (supraventricular tachycardia) (HCC) - ICD9: 427.89, ICD10: I47.10 Continue with cardio 7. 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) - ICD9: 250.60, 356.2, ICD10: E11.42 - Controlled - Continue current medications Anette Arreola PA-C documented [facility] Telephone encounter Note * Telephone Encounter - Izabela Skelton RN - 07/06/2024 11:47 AM EDT Pt called and is notified of providers results and instructions. Pt voices understanding. Pt stateshe will call back to reschedule because he has to check his schedule. Izabela Skelton RN [facility]09-06-2024 Miscellaneous Notes* Telephone Encounter - Izabela Skelton RN - 07/06/2024 11:47 AM EDT Pt called and is notified of providers results and instructions. Pt voices understanding. Pt stateshe will call back to reschedule because he has to check his schedule. Izabela Skelton, RN * Telephone Encounter - Lorie Moses APRN.CNP - 07/06/2024 9:45 AM EDT Please let patient know his labs are stable. Patient should reschedule his follow up. documented in this encounterAv[facility] Telephone encounter Note * Telephone Encounter - Lorie Moses APRN.CNP - 07/06/2024 9:45 AM EDT Please let patient know his labs are stable. Patient should reschedule his follow up. [facility] Telephone encounter Note* Telephone Encounter - Lorie Moses APRN.CNP - 06/26/2024 10:16 AM EDT Noted. [facility] Miscellaneous Notes* Telephone Encounter - Lorie Moses APRN.CNP - 06/26/2024 10:16 AM EDT Noted. * Telephone Encounter - Milind Denis MA - 06/26/2024 10:08 AM EDT Scan on 06/25/2024 9:44 AM by Provider, External, PA-C: Miscellaneous Lab Scan on 06/26/2024 6:35 AM by Provider, External, PA-C: Miscellaneous Lab Please review. Milind Denis MA documented in this encounterAv[facility]-27-[facility]24 Telephone encounter Note * Telephone Encounter - Milind Denis MA - 06/26/2024 10:08 AM EDT Scan on 06/25/2024 9:44 AM by Provider, External, PA-C: Miscellaneous Lab Scan on 06/26/2024 6:35 AM by Provider, External, PA-C: Miscellaneous Lab Please review. Milind Denis MA [facility]-08-[facility] Instructions* Patient Instructions* Ani Linares - 06/07/2024 8:53 AM EDT Diabetes Foot Care Instructions When you have diabetes, proper foot care is very important. Poor foot care may lead to amputation of a foot or leg. As a person with diabetes, you are more vulnerable to foot problems, because diabetes can damage your nerves and reduce blood flow to your feet. Here are some diabetes foot care tips to follow: Wash and Dry Your Feet Daily Use mild soaps Use warm water Pat your skin dry; do not rub. Thoroughly dry your feet. After washing, use lotion on your feet to prevent cracking. Do not put lotion between your toes. Examine Your Feet Each Day Check the tops and bottoms of your feet. Have someone else look at your feet if you cannot see them. Check for dry, cracked skin. Look for blisters, cuts, scratches, or other sores. Check for redness, increased warmth, or tenderness when touching any area of your feet. Check for ingrown toenails, corns, and calluses. If you get a blister or sore from your shoes, do not pop it. Apply a bandage and wear a differentpair of shoes. Take Care of Your Toenails Cut toenails after bathing, when they are soft. Cut toenails straight across and smooth with a nail file. Avoid cutting into the corners of toes. Do not cut cuticles. If you have neuropathy (or decreased sensation in your feet) a air pumper should always cut your toenails. Be Careful When Exercising Walk and exercise in comfortable shoes. Do not exercise when you have open sores on your feet. Protect Your Feet With Shoes and Socks Never go barefoot. Always protect your feet by wearing shoes or hard-soled slippers or footwear. Avoid shoes with high heels and pointed toes. Avoid shoes that expose your toes or heels (such as open-toed shoes or sandals). These types of shoes increase your risk for injury and potential infections. Try on new footwear with the type of socks you usually wear. Do not wear new shoes for more than an hour at a time. Change your socks daily. Look and feel inside your shoes before putting them on to make sure there are no foreign objects orrough areas. Avoid tight socks. Wear natural-fiber socks (cotton, wool, or a cotton-wool blend). Wear special shoes if your health care provider recommends them. Wear shoes/boots that will protect your feet from various weather conditions (cold, moisture, etc.). Make sure your shoes fit properly. If you have neuropathy (nerve damage), you may not notice that your shoes are too tight. Perform the footwear test described below. Footwear Test Use this simple test to see if your shoes fit correctly: Stand on a piece of paper. (Make sure you are standing and not sitting, because your foot changes shape when you stand.) Trace the outline of your foot. Trace the outline of your shoe. Compare the tracings: Is the shoe too narrow? Is your foot crammed into the shoe? The shoe should be at least 1/2 inch longer than your longest toe and as wide as your foot. Proper Shoe Choices The following types of shoes are best for people with diabetes Closed toes and heels Leather uppers without a seam inside At least 1/2 inch extra space at the end of your longest toe Inside of shoe should be soft with no rough areas Outer sole should be made of stiff material Shoes should be at least as wide as your feet Tips for Foot Care in Diabetes Don't wait to treat a minor foot problem if you have diabetes. Follow your health care provider's guidelines and first aid guidelines. Report foot injuries and infections to your health care provider immediately. Check water temperature with your elbow, not your foot. Do not use a heating pad on your feet. Do not cross your legs. Do not self-treat your corns, calluses, or other foot problems. Go to your health care provider or air pumper to treat these conditions. documented in this encounterAv[facility]08-[facility] History of Present illness Narrative* MilagrosAni - 06/07/2024 8:46 AM EDT Images from the original note were not included. FOLLOW UP PODIATRIC OFFICE VISIT Chief Complaint: This 68 year old who presents for follow up:neuropathy Patient presents to clinic for follow-up neuropathy. He continues to have severe cramping in both feet, arches and extending up the legs. He has to often get out of bed to stretch to eliminate the cramping. He has been using compression stockings and that does help. He is looking to get off light duty. PAIN EVALUATION 06/07/2024 0806 Pain Level: 5 Pain Location: Foot-Right Description: Cramping;Numbness;Tenderness;Tightness Duration Amount of Time: 24 Duration Units: Weeks Frequency: Continuous Intervention/Comfort measure: Medication;Relaxation;Massage Hemoglobin A1C Date Value Ref Range Status 05/28/2024 6.3 (H) 4.3 - 5.6 % Final Comment: [place] [employer] guidelines indicate that patients with HgbA1c in the range 5.7-6.4% are at increased risk for development of diabetes, and intervention by lifestyle modification may be beneficial. HgbA1c greater or equal to 6.5% is considered diagnostic of diabetes. 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 12/02/2021: Basal cell carcinoma 01/21/2023: Bilateral hip pain No date: BPH (benign prostatic hyperplasia) Comment: s/p removal 09/22/2023: Callus of foot Comment: Seeing podiatry 02/24/2019: Chronic insomnia 02/24/2019: Controlled type 2 diabetes mellitus with stage 3 chronic kidney disease, without long-term current use of insulin ([facility]) 01/30/2018: Decreased libido 05/30/2015: Degenerative retinal drusen of both eyes 03/18/2022: Diabetic eye exam ([facility]) Comment: Last done 01/05/22 Non-Proliferative Diabetic Retinopathy mild [facility] [place] 05/20/2021: ED (erectile dysfunction) 06/06/2006: Essential hypertension, benign 05/20/2021: Ex-smoker Comment: Started age 16, up to 2 PPD quit age 21 05/20/2021: Gastroesophageal reflux disease with esophagitis without hemorrhage No date: Herniated lumbar intervertebral disc No date: History of BPH Comment: s/p removal No date: History of depression 06/21/2020: Iron deficiency anemia 07/31/2021: Irritable bowel syndrome with both constipation and diarrhea 01/30/2018: Leg cramps 10/13/2022: Living will on file at physician's office Comment: DPA: catherine () 06/21/2020: Low testosterone in male 02/24/2019: Lumbar radiculopathy 05/18/2023: Lumbar spinal stenosis Comment: MRI 02/2023- [facility] 02/11/2020: Malignant melanoma of torso excluding breast ([facility]) 03/20/2013: Mixed hyperlipidemia 05/30/2015: Nuclear sclerotic cataract of both eyes 10/13/2022: Pain in both lower extremities 09/09/2017: Peripheral retinal degeneration, paving stone, bilateral 08/30/2022: Peripheral sensory neuropathy due to type 2 diabetes mellitus ([facility]) 09/22/2023: Post-COVID chronic fatigue Comment: Along with HS's and body aches: Has FMLA for 08/31/2016: Posterior vitreous detachment of left eye 09/09/2017: Posterior vitreous detachment of right eye 08/10/2021: Renal cyst, right Comment: Simple, benign US 07/202103/19/2022: Retinopathy Comment: Mild B/l No date: Rotator cuff tear, left 05/17/2017: Senile nuclear sclerosis 09/09/2017: Senile nuclear sclerosis, bilateral 05/20/2021: SVT (supraventricular tachycardia) ([facility]) Comment: Treated with Ablation: 201312/30/2023: Tinnitus of both ears 09/09/2017: Type 2 diabetes mellitus with retinopathy, without long- term current use of insulin (HCC) 01/30/2018: Uncontrolled type 2 diabetes mellitus with stage 3 chronic kidney disease, without long-term current use of insulin 05/30/2015: Vitreous syneresis of both eyes 08/23/2022: Well adult exam Current Outpatient Medications Medication Sig atorvastatin (LIPITOR) 10 mg tablet Take 1 tablet by mouth daily at bedtime. For cholesterol. docusate sodium (COLACE) 100 mg capsule Take 1 capsule by mouth two times a day as needed for constipation. esomeprazole (NEXIUM) 40 mg capsule Take 1 capsule by mouth once daily. ferrous sulfate (SLOW FE) 137 mg (45 mg iron) TbER Take 1 tablet by mouth every other day. metFORMIN (GLUCOPHAGE) 1,000 mg tablet Take 1 tablet by mouth two times a day with meals. traZODone (DESYREL) 50 mg tablet Take 1 tablet by mouth daily at bedtime. baclofen 10 mg tablet Take 1 tablet by mouth three times a day as needed (muscle spasms). ondansetron orally disintegrating (ZOFRAN ODT) 4 mg disintegrating tablet Take 1 tablet by mouth every 6 hours as needed for nausea/vomiting. dulaglutide (TRULICITY) 1.5 mg/0.5 mL pen injector Inject 1.5 mg subcutaneously one time a week. Inject once per week. Discard Pen After dicyclomine (BENTYL) 10 mg capsule Take 1 capsule by mouth before meals and at bedtime. (Patient taking differently: Take 10 mg by mouth before meals and at bedtime. PRN) EPINEPHrine (AUVI-Q) 0.3 mg/0.3 mL auto-injector Inject 0.3 mL intramuscularly as needed. blood sugar diagnostic (BLOOD GLUCOSE TEST) test strip Test blood sugar(s) 2 times daily. Dx: OtherDM Code E11.22 Insulin: Yes fluticasone (FLONASE) 50 mcg/actuation nasal spray Use 2 Sprays in each nostril once daily. Rinse mouth after use. losartan (COZAAR) 100 mg tablet Take 1 tablet by mouth once daily. carvedilol (COREG) 25 mg tablet Take 1 tablet by mouth twice daily. Per Cardio, Dr. Schneider amLODIPine (NORVASC) 10 mg tablet Take 1 tablet by mouth once daily. Per Cardio, Dr. Schneider Lancets lancets Test blood sugar(s) 2 times daily. Dx: Other DM Code E11.22 Insulin: Yes No current facility-administered medications for this visit. ALLERGIES Allergen Reactions Bee Sting Anaphylaxis Amitriptyline Intolerance Did not tolerate. Tramadol Vomiting PAST SURGICAL HISTORY 2011: COLONOSCOPY 08/21/2018: COLONOSCOPY FLX DX W/COLLJ SPEC WHEN PFRMD Comment: repeat 5 years 08/21/2018: ESOPHAGOGASTRODUODENOSCOPY TRANSORAL DIAGNOSTIC Comment: repeat 2 years 01/05/2018: FASCT PALM W/WO Z-PLASTY TISSUE REARGMT/SKN GRFT; Left Comment: A1 sánchez release ring finger No date: HEART SURGERY HX 09/15/2023: INCISE FINGER TENDON SHEATH Comment: Ring trigger finger release Right ring open palmar fasciectomy 02/02/2019: LAPS PROSTECT RETROPUBIC RAD W/NRV SPARING ROBOT Comment: for enlarged prostate 1999: PAST SURGICAL HISTORY OF Comment: rotator cuff left 2013: PAST SURGICAL HISTORY OF Comment: ablation, SVT No date: TONSILLECTOMY HX Physical Exam: OBJECTIVE: Constitutional: Pt is a well developed 68 year old male who is alert, oriented, cooperative and in no apparent distress. Eyes: Following during examination. No redness or drainage. Respiratory: RR normal and nonlabored. Even breathing. No evidence of distress. Psychology: Patient is engaged during conversation. Normal affect and mood. Does not appear depressed or anxious. Vascular: DP and PT pulses are palpable to b/l lower extremity. CFT is less than 5 seconds. Skin temperature is warm to warm. Neuro: protective sensation is intact to b/l feet. Vibratory sensation is absent Dermatological: Nails 1-5 b/l are normal. Webspaces clean and dry 1-4 b/l. Skin appears well hydrated and supple. good color, texture, turgor. No open lesions present. No callosities present. Musculoskeletal/Orthopaedic: Patient has no pain to palpation of b/l feet Mild swelling of b/l feet. No calf pain ASSESSMENT: (E11.42) 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) (primary encounter diagnosis) (I87.2) Venous insufficiency PLAN: Discussed neuropathy related to diabetes. Continue to avoid barefoot walking and perform daily footinspection. Diabetic foot exam performed Discussed swelling in legs. Compression stockings ordered and patient will benefit from continued use Ok to return to work without restrcitions June 24, 2024 Ani Linares DPM * Magda Burton LPN - 06/07/2024 8:35 AM EDT AMB ROOMING INTAKE FLOWSHEET DATA Pain Pain Level: 5 Pain Location: Foot-Right Description: Cramping, Numbness, Tenderness, Tightness Duration Amount of Time: 24 Duration Units: Weeks Frequency: Continuous Intervention/Comfort measure: Medication, Relaxation, Massage Patient presents with: Right Foot - Established Patient, Follow Up, Pain Patient would like to come off of restriction. Patient states that compression socks help with pain. Patient also complains numbness and feeling like something is wrapped around ankle. Patient also complains of cramps 6/7 nights out of the week. Magda Burton LPN documented in this encounterAv[facility]07-[facility] Telephone encounter Note * Telephone Encounter - Milind Denis MA - 05/28/2024 8:54 AM EDT Patient notified and is coming in later today at 2:20 appointment with his . Paperwork on nurses desk. Milind Denis MA [facility]-29-[facility] Miscellaneous Notes* Telephone Encounter - Milind Denis MA - 05/28/2024 8:54 AM EDT Patient notified and is coming in later today at 2:20 appointment with his . Paperwork on nurses desk. Milind Denis MA * Telephone Encounter - Cruz Prado MD - 05/27/2024 2:27 PM EDT My section is complete. Please make copy for chart. Advise patient he will aleah to review Sect II and answer/update questions 1-5 * Telephone Encounter - Milind Denis MA - 05/25/2024 10:17 AM EDT Patient was notified and voiced understanding. Will notified patient once paperwork is complete. Milind Denis MA * Telephone Encounter - Raul Domingo LPN - 05/24/2024 12:20 PM EDT Pt calling to check to see if pcp had completed the FMLA paperwork. Pt is aware pcp is out of the office until Tue and is aware that pcp may have taken the forms with him to complete while he was outof the office. Advised him that this nurse did not think pcp had recently brought anything into theoffice. Pt is wanting to have Milind call him tomorrow as she is out of the office today. Please call Reagan at [phone]. Raul Domingo LPN * Telephone Encounter - Milind Denis MA - 05/21/2024 11:26 AM EDT This will needed addressed upon provider coming back in the office. Patient had not reviewed his messages that we sent requesting additional information regarding his FMLA. Paperwork Patient indicated that he was off work because his (catherine) was in the [facility] from 05/01-05/06. Hewas then off again. 05/07-05/09 due to his being sick and back in the hospital again. He has been back to work. However, he will need to take her to follow up appointments. She does have one with Dr. Hill tomorrow. They are not sure how many follow up a month at this point she will need or have. I did let patient know that his portion of the paperwork was not completed and would need completed. Patient was going to come today, however, paperwork is not provider desk currently. (He may have taken home with him to work on) Milind Denis MA * Telephone Encounter - Milind Denis MA - 05/16/2024 9:02 AM EDT Sent my chart message to patient. With below information. Milind Denis MA * Telephone Encounter - Cruz Prado MD - 05/15/2024 4:52 PM EDT Let patient know he forgot to complete his section. I need to know the care he will be providing (check those that apply) Assistance with basic medical care Transportation Physical care Psychological care Give best estimate of time needed to provide care? If reduce work necessary give best estimate of reduced schedule you are able to work? From (mm/DD/YYYY) to (mm/dd/yyyy). I'm able to work (hrs per day) ( days per week) * Telephone Encounter - Milind Denis MA - 05/14/2024 10:12 AM EDT Type of form: FMLA Form received via walk in When form is completed, Fax form to Armen Allen [phone] Form has been forwarded to Physician Desk: Dr. Dr Prado Patient's was in hospital Review of chart patient was in ER 05/01/2024 and then again 05/04/2024 and was admitted again 05/08/2024. Milind Denis MA documented in this encounterAvita [facility]07-[facility] Telephone encounter Note * Telephone Encounter - Cruz Prado MD - 05/27/2024 2:27 PM EDT My section is complete. Please make copy for chart. Advise patient he will aleah to review Sect II and answer/update questions 1-5 [facility] Telephone encounter Note* Telephone Encounter - Milind Denis MA - 05/25/2024 10:17 AM EDT Patient was notified and voiced understanding. Will notified patient once paperwork is complete. Milind Denis MA [facility]07-25-2024 Telephone encounter Note* Telephone Encounter - Raul Domingo LPN - 05/24/2024 12:20 PM EDT Pt calling to check to see if pcp had completed the FMLA paperwork. Pt is aware pcp is out of the office until Tue and is aware that pcp may have taken the forms with him to complete while he was outof the office. Advised him that this nurse did not think pcp had recently brought anything into theoffice. Pt is wanting to have Milind call him tomorrow as she is out of the office today. Please call Reagan at [phone]. Raul Domingo LPN [facility]07-22-2024 Telephone encounter Note* Telephone Encounter - Milind Denis MA - 05/21/2024 11:26 AM EDT This will needed addressed upon provider coming back in the office. Patient had not reviewed his messages that we sent requesting additional information regarding his FMLA. Paperwork Patient indicated that he was off work because his (catherine) was in the [facility] from 05/01-05/06. Hewas then off again. 05/07-05/09 due to his being sick and back in the hospital again. He has been back to work. However, he will need to take her to follow up appointments. She does have one with Dr. Hill tomorrow. They are not sure how many follow up a month at this point she will need or have. I did let patient know that his portion of the paperwork was not completed and would need completed. Patient was going to come today, however, paperwork is not provider desk currently. (He may have taken home with him to work on) Milind Denis MA [facility]07-17-2024 Telephone encounter Note* Telephone Encounter - Milind Denis MA - 05/16/2024 9:02 AM EDT Sent my chart message to patient. With below information. Milind Denis MA [facility]07-16-2024 Telephone encounter Note* Telephone Encounter - Cruz Prado MD - 05/15/2024 4:52 PM EDT Let patient know he forgot to complete his section. I need to know the care he will be providing (check those that apply) Assistance with basic medical care Transportation Physical care Psychological care Give best estimate of time needed to provide care? If reduce work necessary give best estimate of reduced schedule you are able to work? From (mm/DD/YYYY) to (mm/dd/yyyy). I'm able to work (hrs per day) ( days per week) [facility]07-15-2024 Telephone encounter Note* Telephone Encounter - Milind Denis MA - 05/14/2024 10:12 AM EDT Type of form: FMLA Form received via walk in When form is completed, Fax form to Armen Allen [phone] Form has been forwarded to Physician Desk: Dr. Dr Prado Patient's was in hospital Review of chart patient was in ER 05/01/2024 and then again 05/04/2024 and was admitted again 05/08/2024. Milind Denis MA [facility]07-03-2024 History of Present illness Narrative* Cruz Prado MD - 05/02/2024 9:20 AM EDT Chief Complaint Patient presents with: Abdominal Pain HPI Dar Rose is a 68 year old male who presents here today for IBS Patient with hx of HTN, hyperlipidemia, SVT, DM2, Matthew's, melanoma, and those as below. The pain he is referring to is a pulling sensation over/in the scar region where his melanoma was removed in the right upper abdomen. Tends to be a mild pian and notices the most with twisting and turning. Patient does experience IBS episodes about once a week. Abdomen pain? Burning; stomach feels distended Diarrhea? Bowels are irregular; some diarrhea. No. Blood or melena. Patient does take bentyl and that seems to help as needed for flair ups. Patient is only needing to take 1/2 tablet on trazadone - would like a 50 mg tablet sent. Needs scheduled for Gastro, he was never contacted back in January. 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 Past medical history, appointments, medications, allergies reviewed. 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 07/06/2018 Basal cell carcinoma 12/02/2021 Bilateral hip pain 01/21/2023 BPH (benign prostatic hyperplasia) s/p removal Callus of foot 09/22/2023 Seeing podiatry Chronic insomnia 02/24/2019 Controlled type 2 diabetes mellitus with stage 3 chronic kidney disease, without long-term current use of insulin ([facility]) 02/24/2019 Decreased libido 01/30/2018 Degenerative retinal drusen of both eyes 05/30/2015 Diabetic eye exam ([facility]) 03/18/2022 Last done 01/05/22 Non-Proliferative Diabetic Retinopathy mild [facility] (erectile dysfunction) 05/20/2021 Essential hypertension, benign 06/06/2006 Ex-smoker 05/20/2021 Started age 16, up to 2 PPD quit age 21 Gastroesophageal reflux disease with esophagitis without hemorrhage 05/20/2021 Herniated lumbar intervertebral disc History of BPH s/p removal History of depression Iron deficiency anemia 06/21/2020 Irritable bowel syndrome with both constipation and diarrhea 07/31/2021 Leg cramps 01/30/2018 Living will on file at physician's office 10/13/2022 DPA: catherine () Low testosterone in male 06/21/2020 Lumbar radiculopathy 02/24/2019 Lumbar spinal stenosis 05/18/2023 MRI 02/2023- [facility] Malignant melanoma of torso excluding breast ([facility]) 02/11/2020 Mixed hyperlipidemia 03/20/2013 Nuclear sclerotic cataract of both eyes 05/30/2015 Pain in both lower extremities 10/13/2022 Peripheral retinal degeneration, paving stone, bilateral 09/09/2017 Peripheral sensory neuropathy due to type 2 diabetes mellitus ([facility]) 08/30/2022 Post-COVID chronic fatigue 09/22/2023 Along with HS's and body aches: Has FMLA for Posterior vitreous detachment of left eye 08/31/2016 Posterior vitreous detachment of right eye 09/09/2017 Renal cyst, right 08/10/2021 Simple, benign US 07/2021 Retinopathy 03/19/2022 Mild B/l Rotator cuff tear, left Senile nuclear sclerosis 05/17/2017 Senile nuclear sclerosis, bilateral 09/09/2017 SVT (supraventricular tachycardia) ([facility]) 05/20/2021 Treated with Ablation: 2013 Tinnitus of both ears 12/30/2023 Type 2 diabetes mellitus with retinopathy, without long-term current use of insulin ([facility]) 09/09/2017 Uncontrolled type 2 diabetes mellitus with stage 3 chronic kidney disease, without long-term current use of insulin 01/30/2018 Vitreous syneresis of both eyes 05/30/2015 Well adult exam 08/23/2022 Previous Surgical History PAST SURGICAL HISTORY Procedure Laterality Date COLONOSCOPY 2011 COLONOSCOPY FLX DX W/COLLJ SPEC WHEN PFRMD 08/21/2018 repeat 5 years ESOPHAGOGASTRODUODENOSCOPY TRANSORAL DIAGNOSTIC 08/21/2018 repeat 2 years FASCT PALM W/WO Z-PLASTY TISSUE REARGMT/SKN GRFT Left 01/05/2018 A1 sánchez release ring finger HEART SURGERY HX INCISE FINGER TENDON SHEATH 09/15/2023 Ring trigger finger release Right ring open palmar fasciectomy LAPS PROSTECT RETROPUBIC RAD W/NRV SPARING ROBOT 02/02/2019 for enlarged prostate PAST SURGICAL HISTORY OF 1999 rotator cuff left PAST SURGICAL HISTORY OF 2013 ablation, SVT TONSILLECTOMY HX Family History FAMILY HISTORY Problem Relation Age of Onset other (cancer, lung) Mother Alzheimer's Disease Father No Known Problems Sister Heart Attack Brother No Known Problems Maternal Grandmother No Known Problems Maternal Grandfather No Known Problems Paternal Grandmother No Known Problems Paternal Grandfather Patient Allergies ALLERGIES Allergen Reactions Bee Sting Anaphylaxis Amitriptyline Intolerance Did not tolerate. Tramadol Vomiting Current Medications Current Outpatient Medications on File Prior to Visit Medication Sig baclofen 10 mg tablet Take 1 tablet by mouth three times a day as needed (muscle spasms). ondansetron orally disintegrating (ZOFRAN ODT) 4 mg disintegrating tablet Take 1 tablet by mouth every 6 hours as needed for nausea/vomiting. docusate sodium (COLACE) 100 mg capsule Take 1 capsule by mouth two times a day as needed for constipation. ferrous sulfate (SLOW FE) 137 mg (45 mg iron) TbER Take 1 tablet by mouth every other day. atorvastatin (LIPITOR) 10 mg tablet Take 1 tablet by mouth daily at bedtime. For cholesterol. dulaglutide (TRULICITY) 1.5 mg/0.5 mL pen injector Inject 1.5 mg subcutaneously one time a week. Inject once per week. Discard Pen After esomeprazole (NEXIUM) 40 mg capsule Take 1 capsule by mouth once daily. metFORMIN (GLUCOPHAGE) 1,000 mg tablet Take 1 tablet by mouth two times a day with meals. traZODone (DESYREL) 100 mg tablet Take 1 tablet by mouth daily at bedtime. dicyclomine (BENTYL) 10 mg capsule Take 1 capsule by mouth before meals and at bedtime. (Patient taking differently: Take 10 mg by mouth before meals and at bedtime. PRN) EPINEPHrine (AUVI-Q) 0.3 mg/0.3 mL auto-injector Inject 0.3 mL intramuscularly as needed. blood sugar diagnostic (BLOOD GLUCOSE TEST) test strip Test blood sugar(s) 2 times daily. Dx: OtherDM Code E11.22 Insulin: Yes fluticasone (FLONASE) 50 mcg/actuation nasal spray Use 2 Sprays in each nostril once daily. Rinse mouth after use. losartan (COZAAR) 100 mg tablet Take 1 tablet by mouth once daily. carvedilol (COREG) 25 mg tablet Take 1 tablet by mouth twice daily. Per Cardio, Dr. Schneider amLODIPine (NORVASC) 10 mg tablet Take 1 tablet by mouth once daily. Per Cardio, Dr. Schneider Lancets lancets Test blood sugar(s) 2 times daily. Dx: Other DM Code E11.22 Insulin: Yes No current facility-administered medications on file prior to visit. Social History Social History Tobacco Use Smoking status: Former Smokeless tobacco: Never Tobacco comments: quit around 1983 Vaping Use Vaping Use: Never used Substance Use Topics Alcohol use: Yes Comment: seldom beer Drug use: No Review of Symptoms REVIEW OF SYSTEMS Se HPI EXAM: BP 130/70 (BP Site: Right Arm, BP Position: Sitting, BP Cuff Size: Regular Adult) Pulse 64 Temp36.3 C (97.3 F) (Tympanic) Resp 16 Wt 90.3 kg (199 lb) BMI 29.60 kg/m General Appearance: Well appearing, alert, in no acute distress, well-hydrated, well nourished.. Abdomen: Abdomen soft, non-distended.. Bowel sounds normal. No masses, organomegaly. Has some mild generalized lower abdominal tenderness. No tenderness over the scar in the right upper abdomen. Health Maintenance List Dilated Retinal Exam due on 02/04/2024 Covid-19 Vaccine( season) due on 09/27/2024 Behavioral Health Screening due on 10/30/2024 RSV Vaccine(1 - 1-dose 60+ series) due on 12/29/2024 Shingrix Vaccine(1 of 2) due on 12/29/2024 HbA1C due on 05/25/2024 Influenza Vaccine(1) due on 07/01/2024 Diabetic Foot Exam due on 08/16/2024 Urine Albumin:Creatinine Ratio due on 11/25/2024 LDL Cholesterol due on 11/25/2024 Serum Creatinine due on 11/25/2024 Hemoglobin/Hematocrit due on 11/25/2024 BP Controlled (<130/80) due on 12/29/2024 Annual PCP Team Chronic Disease Visit due on 01/30/2025 DTaP,Tdap,Td Vaccine(2 - Td or Tdap) due on 03/13/2027 Colorectal Cancer Screening due on 06/01/2027 Abdominal Aortic Aneurysm Screening Completed Advance Directive Discussion Completed Hepatitis C Screening Completed Pneumococcal Vaccine: 65+ Completed HPV Vaccine Aged Out Data reviewed A/P ASSESSMENT/PLAN: 1. Scar pain - ICD9: 709.2, ICD10: L90.5 (primary diagnosis) - discussed benign nature and will monitor 2. Chronic insomnia - ICD9: 780.52, ICD10: F51.04 Cont - TRAZODONE 100 MG TABLET 3. Irritable bowel syndrome with both constipation and diarrhea - ICD9: 564.1, ICD10: K58.2 - will have patient get appt with GI set up. Requested Prescriptions Signed Prescriptions Disp Refills atorvastatin (LIPITOR) 10 mg tablet 90 tablet 1 Sig: Take 1 tablet by mouth daily at bedtime. For cholesterol. docusate sodium (COLACE) 100 mg capsule 60 capsule 5 Sig: Take 1 capsule by mouth two times a day as needed for constipation. esomeprazole (NEXIUM) 40 mg capsule 90 capsule 1 Sig: Take 1 capsule by mouth once daily. ferrous sulfate (SLOW FE) 137 mg (45 mg iron) TbER 90 tablet 1 Sig: Take 1 tablet by mouth every other day. metFORMIN (GLUCOPHAGE) 1,000 mg tablet 180 tablet 1 Sig: Take 1 tablet by mouth two times a day with meals. traZODone (DESYREL) 50 mg tablet 90 tablet 1 Sig: Take 1 tablet by mouth daily at bedtime. F/u next routine on 07/06/2024 Cruz Prado MD [facility] encounter[facility] Instructions* Patient Instructions* Ani Linares - 04/26/2024 10:02 AM EDT Diabetes Foot Care Instructions When you have diabetes, proper foot care is very important. Poor foot care may lead to amputation of a foot or leg. As a person with diabetes, you are more vulnerable to foot problems, because diabetes can damage your nerves and reduce blood flow to your feet. Here are some diabetes foot care tips to follow: Wash and Dry Your Feet Daily Use mild soaps Use warm water Pat your skin dry; do not rub. Thoroughly dry your feet. After washing, use lotion on your feet to prevent cracking. Do not put lotion between your toes. Examine Your Feet Each Day Check the tops and bottoms of your feet. Have someone else look at your feet if you cannot see them. Check for dry, cracked skin. Look for blisters, cuts, scratches, or other sores. Check for redness, increased warmth, or tenderness when touching any area of your feet. Check for ingrown toenails, corns, and calluses. If you get a blister or sore from your shoes, do not pop it. Apply a bandage and wear a differentpair of shoes. Take Care of Your Toenails Cut toenails after bathing, when they are soft. Cut toenails straight across and smooth with a nail file. Avoid cutting into the corners of toes. Do not cut cuticles. If you have neuropathy (or decreased sensation in your feet) a air pumper should always cut your toenails. Be Careful When Exercising Walk and exercise in comfortable shoes. Do not exercise when you have open sores on your feet. Protect Your Feet With Shoes and Socks Never go barefoot. Always protect your feet by wearing shoes or hard-soled slippers or footwear. Avoid shoes with high heels and pointed toes. Avoid shoes that expose your toes or heels (such as open-toed shoes or sandals). These types of shoes increase your risk for injury and potential infections. Try on new footwear with the type of socks you usually wear. Do not wear new shoes for more than an hour at a time. Change your socks daily. Look and feel inside your shoes before putting them on to make sure there are no foreign objects orrough areas. Avoid tight socks. Wear natural-fiber socks (cotton, wool, or a cotton-wool blend). Wear special shoes if your health care provider recommends them. Wear shoes/boots that will protect your feet from various weather conditions (cold, moisture, etc.). Make sure your shoes fit properly. If you have neuropathy (nerve damage), you may not notice that your shoes are too tight. Perform the footwear test described below. Footwear Test Use this simple test to see if your shoes fit correctly: Stand on a piece of paper. (Make sure you are standing and not sitting, because your foot changes shape when you stand.) Trace the outline of your foot. Trace the outline of your shoe. Compare the tracings: Is the shoe too narrow? Is your foot crammed into the shoe? The shoe should be at least 1/2 inch longer than your longest toe and as wide as your foot. Proper Shoe Choices The following types of shoes are best for people with diabetes Closed toes and heels Leather uppers without a seam inside At least 1/2 inch extra space at the end of your longest toe Inside of shoe should be soft with no rough areas Outer sole should be made of stiff material Shoes should be at least as wide as your feet Tips for Foot Care in Diabetes Don't wait to treat a minor foot problem if you have diabetes. Follow your health care provider's guidelines and first aid guidelines. Report foot injuries and infections to your health care provider immediately. Check water temperature with your elbow, not your foot. Do not use a heating pad on your feet. Do not cross your legs. Do not self-treat your corns, calluses, or other foot problems. Go to your health care provider or air pumper to treat these conditions. documented in this encounterAv[facility] History of Present illness Narrative* Ani Linares - 04/26/2024 9:49 AM EDT Images from the original note were not included. Subjective: This 68 year old male presents to clinic for diabetic foot check. Patient has the following complaints: numbness in both feet . Darnell states the numbness starts in his feet and extend to his legs. Feels like he is walking on cardboard. Feels a little better when wearing shoes. Patientadmits to being diabetic for multiple years now. Patient +B/T/N in feet at this time. Patient -painin legs when walking. No other pedal complaints at this time. No change in medications or medical history since last visit. PAIN EVALUATION 04/25/20241947 Pain Level: 8 Pain Location: Foot-Right Description: Aching;Burning;Dull;Numbness;Sharp;Tightness;Other: See comment Duration Amount of Time: 24 Duration Units: Weeks Frequency: Continuous Intervention/Comfort measure: Relaxation Comments: Continuous Hemoglobin A1C (%) Date Value 11/25/2023 6.3 05/09/2023 6.3 09/29/2022 6.0 04/02/2022 6.0 11/06/2021 6.9 05/22/2021 6.4 02/16/2021 6.8 10/18/2020 7.0 06/28/2020 7.2 PCP: Cruz Prado MD 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 07/06/2018 Basal cell carcinoma 12/02/2021 Bilateral hip pain 01/21/2023 BPH (benign prostatic hyperplasia) s/p removal Callus of foot 09/22/2023 Seeing podiatry Chronic insomnia 02/24/2019 Controlled type 2 diabetes mellitus with stage 3 chronic kidney disease, without long-term current use of insulin ([facility]) 02/24/2019 Decreased libido 01/30/2018 Degenerative retinal drusen of both eyes 05/30/2015 Diabetic eye exam (HCC) 03/18/2022 Last done 01/05/22 Non-Proliferative Diabetic Retinopathy mild [facility] (erectile dysfunction) 05/20/2021 Essential hypertension, benign 06/06/2006 Ex-smoker 05/20/2021 Started age 16, up to 2 PPD quit age 21 Gastroesophageal reflux disease with esophagitis without hemorrhage 05/20/2021 Herniated lumbar intervertebral disc History of BPH s/p removal History of depression Iron deficiency anemia 06/21/2020 Irritable bowel syndrome with both constipation and diarrhea 07/31/2021 Leg cramps 01/30/2018 Living will on file at physician's office 10/13/2022 DPA: catherine () Low testosterone in male 06/21/2020 Lumbar radiculopathy 02/24/2019 Lumbar spinal stenosis 05/18/2023 MRI 02/2023- [facility] Malignant melanoma of torso excluding breast ([facility]) 02/11/2020 Mixed hyperlipidemia 03/20/2013 Nuclear sclerotic cataract of both eyes 05/30/2015 Pain in both lower extremities 10/13/2022 Peripheral retinal degeneration, paving stone, bilateral 09/09/2017 Peripheral sensory neuropathy due to type 2 diabetes mellitus ([facility]) 08/30/2022 Post-COVID chronic fatigue 09/22/2023 Along with HS's and body aches: Has FMLA for Posterior vitreous detachment of left eye 08/31/2016 Posterior vitreous detachment of right eye 09/09/2017 Renal cyst, right 08/10/2021 Simple, benign US 07/2021 Retinopathy 03/19/2022 Mild B/l Rotator cuff tear, left Senile nuclear sclerosis 05/17/2017 Senile nuclear sclerosis, bilateral 09/09/2017 SVT (supraventricular tachycardia) ([facility]) 05/20/2021 Treated with Ablation: 2013 Tinnitus of both ears 12/30/2023 Type 2 diabetes mellitus with retinopathy, without long-term current use of insulin ([facility]) 09/09/2017 Uncontrolled type 2 diabetes mellitus with stage 3 chronic kidney disease, without long-term current use of insulin 01/30/2018 Vitreous syneresis of both eyes 05/30/2015 Well adult exam 08/23/2022 Current Outpatient Medications Medication Sig baclofen 10 mg tablet Take 1 tablet by mouth three times a day as needed (muscle spasms). ondansetron orally disintegrating (ZOFRAN ODT) 4 mg disintegrating tablet Take 1 tablet by mouth every 6 hours as needed for nausea/vomiting. ferrous sulfate (SLOW FE) 137 mg (45 mg iron) TbER Take 1 tablet by mouth every other day. atorvastatin (LIPITOR) 10 mg tablet Take 1 tablet by mouth daily at bedtime. For cholesterol. dulaglutide (TRULICITY) 1.5 mg/0.5 mL pen injector Inject 1.5 mg subcutaneously one time a week. Inject once per week. Discard Pen After esomeprazole (NEXIUM) 40 mg capsule Take 1 capsule by mouth once daily. metFORMIN (GLUCOPHAGE) 1,000 mg tablet Take 1 tablet by mouth two times a day with meals. traZODone (DESYREL) 100 mg tablet Take 1 tablet by mouth daily at bedtime. dicyclomine (BENTYL) 10 mg capsule Take 1 capsule by mouth before meals and at bedtime. (Patient taking differently: Take 10 mg by mouth before meals and at bedtime. PRN) EPINEPHrine (AUVI-Q) 0.3 mg/0.3 mL auto-injector Inject 0.3 mL intramuscularly as needed. blood sugar diagnostic (BLOOD GLUCOSE TEST) test strip Test blood sugar(s) 2 times daily. Dx: OtherDM Code E11.22 Insulin: Yes fluticasone (FLONASE) 50 mcg/actuation nasal spray Use 2 Sprays in each nostril once daily. Rinse mouth after use. losartan (COZAAR) 100 mg tablet Take 1 tablet by mouth once daily. carvedilol (COREG) 25 mg tablet Take 1 tablet by mouth twice daily. Per Cardio, Dr. Schneider amLODIPine (NORVASC) 10 mg tablet Take 1 tablet by mouth once daily. Per Cardio, Dr. Schneider Lancets lancets Test blood sugar(s) 2 times daily. Dx: Other DM Code E11.22 Insulin: Yes docusate sodium (COLACE) 100 mg capsule Take 1 capsule by mouth two times a day as needed for constipation. No current facility-administered medications for this visit. ALLERGIES Allergen Reactions Bee Sting Anaphylaxis Amitriptyline Intolerance Did not tolerate. Tramadol Vomiting PAST SURGICAL HISTORY Procedure Laterality Date COLONOSCOPY 2011 COLONOSCOPY FLX DX W/COLLJ SPEC WHEN PFRMD 08/21/2018 repeat 5 years ESOPHAGOGASTRODUODENOSCOPY TRANSORAL DIAGNOSTIC 08/21/2018 repeat 2 years FASCT PALM W/WO Z-PLASTY TISSUE REARGMT/SKN GRFT Left 01/05/2018 A1 sánchez release ring finger HEART SURGERY HX INCISE FINGER TENDON SHEATH 09/15/2023 Ring trigger finger release Right ring open palmar fasciectomy LAPS PROSTECT RETROPUBIC RAD W/NRV SPARING ROBOT 02/02/2019 for enlarged prostate PAST SURGICAL HISTORY OF 1999 rotator cuff left PAST SURGICAL HISTORY OF 2013 ablation, SVT TONSILLECTOMY HX FAMILY HISTORY Problem Relation Age of Onset other (cancer, lung) Mother Alzheimer's Disease Father No Known Problems Sister Heart Attack Brother No Known Problems Maternal Grandmother No Known Problems Maternal Grandfather No Known Problems Paternal Grandmother No Known Problems Paternal Grandfather Social History Tobacco Use Smoking status: Former Smokeless tobacco: Never Tobacco comments: quit around 1983 Vaping Use Vaping Use: Never used Substance Use Topics Alcohol use: Yes Comment: seldom beer Drug use: No REVIEW OF SYSTEMS GENERAL: Negative for Malaise, significant weight loss, fever RESPIRATORY: Negative for cough, wheezing and shortness of breath CARDIOVASCULAR: Negative for chest pain, leg swelling and palpitations GI: Negative for abdominal discomfort, blood in stools or black stools and change in bowel habits : Negative for dysuria, frequency and incontinence MUSCULOSKELETAL: Negative for joint pain or swelling, back pain, and muscle pain. SKIN: Negative for lesions, rash, and itching. HEMATOLOGY/LYMPHOLOGY Negative for prolonged bleeding, bruising easily, and swollen nodes. ENDOCRINE: Negative for cold or heat intolerance, polyuria, polydipsia and goiter. NEURO: negative The remainder of the review of systems is noncontributory. Objective: Patient presents to clinic ambulating in yuni tennis shoes Constitutional: Pt is a well developed 68 year old male who is alert, oriented, cooperative and in no apparent distress. Eyes: Following during examination. No redness or drainage. Respiratory: RR normal and nonlabored. Even breathing. No evidence of distress. Psychology: Patient is engaged during conversation. Normal affect and mood. Does not appear depressed or anxious. Vasc: DP and PT pulses are palpable bilateral. CFT is less than 5 seconds bilateral. Skin temperature is warm to warm proximal to distal bilateral. There is no edema or varicosities noted. Hair growth present. Neuro: Protective sensation is absent to the foot and toes when tested with the 5.07 SWM bilateral.Vibratory sensation is absent at the hallux bilateral. +Significant neurological defecits. Derm: Inspection and palpation performed. Nails 1-5 b/l are normal in length. Skin is of normal turgor and texture. Hyperkeratosis noted to right hallux. NO ulcerations, scars, verruca or other lesions noted. Ortho: Ankle joint DF is full with the knee extended and full with knee flexed. No pain or crepitusnoted. STJ, MTJ ROM are full and free of pain or crepitus. Muscle strength is 5/5 for dorsiflexors,plantarflexors, inverters, everters. Digital deformities include no. Assessment: (E11.42) 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) (primary encounter diagnosis) (L84) Callus of foot Plan: 1. Patient was seen and evaluated. 2. Patient was instructed on the continued importance of diabetic foot care along with proper diet and keeping their blood sugar under control to prevent complications. Discussed neuropathy. This canlead to pain, numbness and even balance issues. Will have patient avoid barefoot walking. Will provide him with diabetic shoes. Will provide him with trial of pain cream. Due to neuropathy and balance issues, will request light duty for minimum of 6 weeks but may require light duty fore foreseeablefuture. Instructions given both oral and written. 3. Patient is to RTC in 6 weeks 4. Callus reduced with jojo Linares DPM * Magda Burton LPN - 04/26/2024 9:18 AM EDT AMB ROOMING INTAKE FLOWSHEET DATA Pain Pain Level: 8 Pain Location: Foot-Right Description: Aching, Burning, Dull, Numbness, Sharp, Tightness, Other: See comment Duration Amount of Time: 24 Duration Units: Weeks Frequency: Continuous Intervention/Comfort measure: Relaxation Comments: Continuous Patient presents with: Right Foot - Corns, Pain, Established Patient, Numbness, Swelling, Diabetic Foot Care Left Foot - Established Patient, Pain, Diabetic Foot Care Patient requesting diabetic shoe order. Magda Burton LPN documented in this encounterAv[facility] History of Present illness Narrative* Francisco Suh MD - 04/12/2024 10:02 AM EDT Patient presents with: Cough: Left ear pain and congestion x1 mth HPI: Feeling congested for 1 month. Treated here 04/04/24 with augmentin for sinusitis and not feeling significantly improved. Positive symptoms: Cough, Sore throat, left Earache, Sinus pressure, Nasal Congestion, Rhinorrhea, Post nasal drainage, Negative symptoms: Shortness of breath, Chest tightness, Chest pain, Fever, OTC: flonase, mucinex DM. MEDICATIONS: Current Outpatient Medications Medication Sig baclofen 10 mg tablet Take 1 tablet by mouth three times a day as needed (muscle spasms). ondansetron orally disintegrating (ZOFRAN ODT) 4 mg disintegrating tablet Take 1 tablet by mouth every 6 hours as needed for nausea/vomiting. docusate sodium (COLACE) 100 mg capsule Take 1 capsule by mouth two times a day as needed for constipation. ferrous sulfate (SLOW FE) 137 mg (45 mg iron) TbER Take 1 tablet by mouth every other day. atorvastatin (LIPITOR) 10 mg tablet Take 1 tablet by mouth daily at bedtime. For cholesterol. dulaglutide (TRULICITY) 1.5 mg/0.5 mL pen injector Inject 1.5 mg subcutaneously one time a week. Inject once per week. Discard Pen After esomeprazole (NEXIUM) 40 mg capsule Take 1 capsule by mouth once daily. metFORMIN (GLUCOPHAGE) 1,000 mg tablet Take 1 tablet by mouth two times a day with meals. traZODone (DESYREL) 100 mg tablet Take 1 tablet by mouth daily at bedtime. dicyclomine (BENTYL) 10 mg capsule Take 1 capsule by mouth before meals and at bedtime. (Patient taking differently: Take 10 mg by mouth before meals and at bedtime. PRN) EPINEPHrine (AUVI-Q) 0.3 mg/0.3 mL auto-injector Inject 0.3 mL intramuscularly as needed. blood sugar diagnostic (BLOOD GLUCOSE TEST) test strip Test blood sugar(s) 2 times daily. Dx: OtherDM Code E11.22 Insulin: Yes fluticasone (FLONASE) 50 mcg/actuation nasal spray Use 2 Sprays in each nostril once daily. Rinse mouth after use. losartan (COZAAR) 100 mg tablet Take 1 tablet by mouth once daily. carvedilol (COREG) 25 mg tablet Take 1 tablet by mouth twice daily. Per Cardio, Dr. Schneider amLODIPine (NORVASC) 10 mg tablet Take 1 tablet by mouth once daily. Per Cardio, Dr. Schneider Lancets lancets Test blood sugar(s) 2 times daily. Dx: Other DM Code E11.22 Insulin: Yes No current facility-administered medications for this visit. ALLERGIES: ALLERGIES Allergen Reactions Bee Sting Anaphylaxis Amitriptyline Intolerance Did not tolerate. Tramadol Vomiting VITALS: BP 158/80 Pulse 72 Temp 36.2 C (97.1 F) Resp 18 Wt 90 kg (198 lb 6.6 oz) SpO2 97% BMI 29.51 kg/m PHYSICAL EXAM: GEN: mildly ill appearing HEENT: PERRL, EOMI, conjunctiva clear Ears: TMs without erythema, bulge, or effusion. Moderate debris in the left canal removed with lighted curette and alligator forceps. Sinuses: pressure over sinuses Throat: moist mucous membranes, mild erythema, no exudate Neck: supple, no thyromegaly, no lymphadenopathy HEART: regular rate and rhythm, no murmurs LUNGS: clear to auscultation, no wheezes or crackles, no increased WOB Latest Ref Rng 11/25/2023 Hemoglobin A1C 4.3 - 5.6 % 6.3 (H) ASSESSMENT/PLAN: 1. Chronic sinusitis, unspecified location - ICD9: 473.9, ICD10: J32.9 (primary diagnosis) Discussed treatment options. - PREDNISONE 10 MG TABLET taper sent, patient thinks he will not take it because of irritability side effect. Continue nasal steroid. Add 2nd generation antihistamine such as claritin or zyrtec. Schedule follow up with ENT to discuss resuming allergy desensitization shots. Avoid decongestants which may further elevated blood pressure. Work note provided for today. 2. Impacted cerumen of left ear - ICD9: 380.4, ICD10: H61.22 Successful removal by instrumentation. Left otalgia is more likely eustachian tube dysfunction so treating underlying congestion is recommended. 3. Controlled type 2 diabetes mellitus with stage 3 chronic kidney disease, without long-term current use of insulin (HCC) - ICD9: 250.40, 585.3, ICD10: E11.22, N18.30 Francisco Suh MD documented in this encounterAv[facility] Telephone encounter Note * Telephone Encounter - Milind Denis MA - 04/10/2024 9:41 AM EDT Fax number is with Paperwork. Faxed to [employer] Nurse Private Duty. Mailed copy to patient Copy sent to scanning. Patient notified. Milind Denis MA [facility]06-[facility] Miscellaneous Notes* Telephone Encounter - Milind Denis MA - 04/10/2024 9:41 AM EDT Fax number is with Paperwork. Faxed to [employer] Nurse Private Duty. Mailed copy to patient Copy sent to scanning. Patient notified. Milind Denis MA * Telephone Encounter - Cruz Prado MD - 04/09/2024 10:37 PM EDT Patient's FMLA forms are complete. Please have copy scanned into chart. Let him know there is no fax number on the form so he will need to come in and pick p the originals. He should make a copy for his records. documented in this encounterAv[facility]06-10-2024 Telephone encounter Note * Telephone Encounter - Cruz Prado MD - 04/09/2024 10:37 PM EDT Patient's FMLA forms are complete. Please have copy scanned into chart. Let him know there is no fax number on the form so he will need to come in and pick p the originals. He should make a copy for his records. [facility] Telephone encounter Note* Telephone Encounter - Milind Denis MA - 04/06/2024 8:[address] Prado I don't see a note in the computer for the paperwork. I have not seen it the paperwork. Do you have the paperwork? Milind Denis MA [facility]-07-[facility] Miscellaneous Notes* Telephone Encounter - Milind Denis MA - 04/06/2024 8:[address] Prado I don't see a note in the computer for the paperwork. I have not seen it the paperwork. Do you have the paperwork? Milind Denis MA documented in this encounterAv[facility]06-[facility] History of Present illness Narrative* Tanya Vega APRN.SOCIAL MEDIA MANAGER - 04/04/2024 10:52 AM EDT This note was created using Meituter. Subjective Dar Rose is a 68 year old male. 68 year old male with PMH HTN, hyperlipidemia, SVT, Barrets esophagus, DM, and anxiety presents forillness. Acute onset of symptoms a couple weeks ago States that he was seen here 04/02/24 for similar Diagnose with rhino sinusitis RX Augmentin Has been taking the medicines States he is feeling better, but did not feel that he could go to work today. Just needed another day home to rest Requesting work note citing he wants to return tomorrow. Endorses he works at the [employer] for [employer] Denies CP Denies SOB Denies dyspnea The history is provided by the patient. No language arts teacher was used. Illness The current episode started more than 1 week ago. The onset was gradual. The problem occurs continuously. The problem has been gradually improving. The problem is mild. The symptoms are relieved by one or more prescription drugs. Nothing aggravates the symptoms. Associated symptoms include diarrhea, congestion, headaches, rhinorrhea and cough. Pertinent negatives include no orthopnea, no fever, no decreased vision, no double vision, no eye itching, no photophobia, no ear discharge, no ear pain,no mouth sores, no sore throat, no stridor, no swollen glands, no muscle aches, no neck pain, no rash, no eye discharge, no eye pain and no eye redness. Urine output has been normal. The last void occurred Less than 6 hours ago. There were sick contacts at work. Recently, medical care has been given at this facility. Services received include medications given. 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 07/06/2018 Basal cell carcinoma 12/02/2021 Bilateral hip pain 01/21/2023 BPH (benign prostatic hyperplasia) s/p removal Callus of foot 09/22/2023 Seeing podiatry Chronic insomnia 02/24/2019 Controlled type 2 diabetes mellitus with stage 3 chronic kidney disease, without long-term current use of insulin ([facility]) 02/24/2019 Decreased libido 01/30/2018 Degenerative retinal drusen of both eyes 05/30/2015 Diabetic eye exam ([facility]) 03/18/2022 Last done 01/05/22 Non-Proliferative Diabetic Retinopathy mild [facility] (erectile dysfunction) 05/20/2021 Essential hypertension, benign 06/06/2006 Ex-smoker 05/20/2021 Started age 16, up to 2 PPD quit age 21 Gastroesophageal reflux disease with esophagitis without hemorrhage 05/20/2021 Herniated lumbar intervertebral disc History of BPH s/p removal History of depression Iron deficiency anemia 06/21/2020 Irritable bowel syndrome with both constipation and diarrhea 07/31/2021 Leg cramps 01/30/2018 Living will on file at physician's office 10/13/2022 DPA: catherine () Low testosterone in male 06/21/2020 Lumbar radiculopathy 02/24/2019 Lumbar spinal stenosis 05/18/2023 MRI 02/2023- [facility] Malignant melanoma of torso excluding breast (HCC) 02/11/2020 Mixed hyperlipidemia 03/20/2013 Nuclear sclerotic cataract of both eyes 05/30/2015 Pain in both lower extremities 10/13/2022 Peripheral retinal degeneration, paving stone, bilateral 09/09/2017 Peripheral sensory neuropathy due to type 2 diabetes mellitus ([facility]) 08/30/2022 Post-COVID chronic fatigue 09/22/2023 Along with HS's and body aches: Has FMLA for Posterior vitreous detachment of left eye 08/31/2016 Posterior vitreous detachment of right eye 09/09/2017 Renal cyst, right 08/10/2021 Simple, benign US 07/2021 Retinopathy 03/19/2022 Mild B/l Rotator cuff tear, left Senile nuclear sclerosis 05/17/2017 Senile nuclear sclerosis, bilateral 09/09/2017 SVT (supraventricular tachycardia) ([facility]) 05/20/2021 Treated with Ablation: 2013 Tinnitus of both ears 12/30/2023 Type 2 diabetes mellitus with retinopathy, without long-term current use of insulin ([facility]) 09/09/2017 Uncontrolled type 2 diabetes mellitus with stage 3 chronic kidney disease, without long-term current use of insulin 01/30/2018 Vitreous syneresis of both eyes 05/30/2015 Well adult exam 08/23/2022 PAST SURGICAL HISTORY Procedure Laterality Date COLONOSCOPY 2011 COLONOSCOPY FLX DX W/COLLJ SPEC WHEN PFRMD 08/21/2018 repeat 5 years ESOPHAGOGASTRODUODENOSCOPY TRANSORAL DIAGNOSTIC 08/21/2018 repeat 2 years FASCT PALM W/WO Z-PLASTY TISSUE REARGMT/SKN GRFT Left 01/05/2018 A1 sánchez release ring finger HEART SURGERY HX INCISE FINGER TENDON SHEATH 09/15/2023 Ring trigger finger release Right ring open palmar fasciectomy LAPS PROSTECT RETROPUBIC RAD W/NRV SPARING ROBOT 02/02/2019 for enlarged prostate PAST SURGICAL HISTORY OF 1999 rotator cuff left PAST SURGICAL HISTORY OF 2013 ablation, SVT TONSILLECTOMY HX ALLERGIES Bee Sting, Amitriptyline, and Tramadol MEDICATIONS amoxicillin-clavulanate potassium (AUGMENTIN) 875-125 mg per tablet Take 1 tablet by mouth two times a day for 5 days. baclofen 10 mg tablet Take 1 tablet by mouth three times a day as needed (muscle spasms). ondansetron orally disintegrating (ZOFRAN ODT) 4 mg disintegrating tablet Take 1 tablet by mouth every 6 hours as needed for nausea/vomiting. docusate sodium (COLACE) 100 mg capsule Take 1 capsule by mouth two times a day as needed for constipation. ferrous sulfate (SLOW FE) 137 mg (45 mg iron) TbER Take 1 tablet by mouth every other day. atorvastatin (LIPITOR) 10 mg tablet Take 1 tablet by mouth daily at bedtime. For cholesterol. dulaglutide (TRULICITY) 1.5 mg/0.5 mL pen injector Inject 1.5 mg subcutaneously one time a week. Inject once per week. Discard Pen After esomeprazole (NEXIUM) 40 mg capsule Take 1 capsule by mouth once daily. metFORMIN (GLUCOPHAGE) 1,000 mg tablet Take 1 tablet by mouth two times a day with meals. traZODone (DESYREL) 100 mg tablet Take 1 tablet by mouth daily at bedtime. dicyclomine (BENTYL) 10 mg capsule Take 1 capsule by mouth before meals and at bedtime. (Patient taking differently: Take 10 mg by mouth before meals and at bedtime. PRN) EPINEPHrine (AUVI-Q) 0.3 mg/0.3 mL auto-injector Inject 0.3 mL intramuscularly as needed. blood sugar diagnostic (BLOOD GLUCOSE TEST) test strip Test blood sugar(s) 2 times daily. Dx: OtherDM Code E11.22 Insulin: Yes fluticasone (FLONASE) 50 mcg/actuation nasal spray Use 2 Sprays in each nostril once daily. Rinse mouth after use. losartan (COZAAR) 100 mg tablet Take 1 tablet by mouth once daily. carvedilol (COREG) 25 mg tablet Take 1 tablet by mouth twice daily. Per CardioDr. Schneider amLODIPine (NORVASC) 10 mg tablet Take 1 tablet by mouth once daily. Per CardioDr. Schneider Lancets lancets Test blood sugar(s) 2 times daily. Dx: Other DM Code E11.22 Insulin: Yes FAMILY HISTORY Problem Relation Age of Onset other (cancer, lung) Mother Alzheimer's Disease Father No Known Problems Sister Heart Attack Brother No Known Problems Maternal Grandmother No Known Problems Maternal Grandfather No Known Problems Paternal Grandmother No Known Problems Paternal Grandfather Social History Tobacco Use Smoking status: Former Smokeless tobacco: Never Tobacco comments: quit around 1983 Vaping Use Vaping Use: Never used Substance Use Topics Alcohol use: Yes Comment: seldom beer Drug use: No Review of Systems Constitutional: Negative for activity change, appetite change, chills and fever. HENT: Positive for congestion and rhinorrhea. Negative for ear discharge, ear pain, mouth sores andsore throat. Eyes: Negative for double vision, photophobia, pain, discharge, redness and itching. Respiratory: Positive for cough. Negative for apnea, chest tightness and stridor. Cardiovascular: Negative for chest pain, orthopnea and leg swelling. Gastrointestinal: Positive for diarrhea. Musculoskeletal: Negative for arthralgias, back pain and neck pain. Skin: Negative for color change, pallor and rash. Allergic/Immunologic: Negative for environmental allergies, food allergies and immunocompromised state. Neurological: Positive for headaches. Negative for dizziness and facial asymmetry. Hematological: Negative for adenopathy. Does not bruise/bleed easily. Psychiatric/Behavioral: Negative for agitation and behavioral problems. Objective BP 120/64 Pulse 90 Temp 36.4 C (97.6 F) Resp 21 Wt 91.7 kg (202 lb 2.6 oz) SpO2 98% BMI30.07 kg/m Physical Exam Vitals and nursing note reviewed. Constitutional: General: He is not in acute distress. Appearance: Normal appearance. He is not ill-appearing, toxic-appearing or diaphoretic. HENT: Head: Normocephalic and atraumatic. Right Ear: External ear normal. Left Ear: External ear normal. Nose: Nose normal. No congestion or rhinorrhea. Mouth/Throat: Mouth: Mucous membranes are moist. Pharynx: Oropharynx is clear. Posterior oropharyngeal erythema present. No oropharyngeal exudate. Eyes: General: Right eye: No discharge. Left eye: No discharge. Extraocular Movements: Extraocular movements intact. Conjunctiva/sclera: Conjunctivae normal. Pupils: Pupils are equal, round, and reactive to light. Cardiovascular: Rate and Rhythm: Normal rate and regular rhythm. Pulses: Normal pulses. Heart sounds: Normal heart sounds. No murmur heard. No friction rub. No gallop. Pulmonary: Effort: Pulmonary effort is normal. No respiratory distress. Breath sounds: Normal breath sounds. No stridor. No wheezing, rhonchi or rales. Chest: Chest wall: No tenderness. Abdominal: General: Abdomen is flat. There is no distension. Palpations: Abdomen is soft. There is no mass. Tenderness: There is no abdominal tenderness. There is no guarding or rebound. Hernia: No hernia is present. Musculoskeletal: General: No swelling, tenderness, deformity or signs of injury. Normal range of motion. Cervical back: Normal range of motion and neck supple. No rigidity or tenderness. Right lower leg: No edema. Left lower leg: No edema. Lymphadenopathy: Cervical: Cervical adenopathy present. Skin: General: Skin is warm and dry. Capillary Refill: Capillary refill takes less than 2 seconds. Coloration: Skin is not jaundiced or pale. Findings: No bruising, lesion or rash. Neurological: General: No focal deficit present. Mental Status: He is alert and oriented to person, place, and time. Cranial Nerves: No cranial nerve deficit. Sensory: No sensory deficit. Motor: No weakness. Coordination: Coordination normal. Gait: Gait normal. Deep Tendon Reflexes: Reflexes normal. Psychiatric: Mood and Affect: Mood normal. Behavior: Behavior normal. Thought Content: Thought content normal. Assessment and Plan ASSESSMENT/PLAN: 1. Encounter to obtain excuse from work - ICD9: V68.89, ICD10: Z02.89 (primary diagnosis) Seen here Tuesday04/02/24 Given work note for 04/02 and 04/03 States he need documentation for today Provided work note 2. Acute non-recurrent sinusitis, unspecified location - ICD9: 461.9, ICD10: J01.90 Diagnosed 04/02 RX Augmentin Endorses starting to feel better - Supportive care with plenty of fluids, rest, and analgesia prn. - Follow up in 3-5 days if symptoms persist or worsen. - Patient to complete the Augmentin. Tanya Vega APRN.KRANTHI documented in this encounterAvita [facility]06-[facility] Telephone encounter Note * Telephone Encounter - An Renee - 04/02/2024 11:48 AM EDT Patient has been identified by name and date of : Patient phones for refill(s): Requested Prescriptions Pending Prescriptions Disp Refills baclofen 10 mg tablet 90 tablet 1 Sig: Take 1 tablet by mouth three times a day as needed (muscle spasms). Date of last office visit in primary care: 01/31/2024 Date of next office visit in primary care: 07/06/2024 Please advise. Thank you. An Renee. [facility]06-[facility] Miscellaneous Notes* Telephone Encounter - An Renee - 04/02/2024 11:48 AM EDT Patient has been identified by name and date of : Patient phones for refill(s): Requested Prescriptions Pending Prescriptions Disp Refills baclofen 10 mg tablet 90 tablet 1 Sig: Take 1 tablet by mouth three times a day as needed (muscle spasms). Date of last office visit in primary care: 01/31/2024 Date of next office visit in primary care: 07/06/2024 Please advise. Thank you. An Renee. documented in this encounterAvita [facility]06-[facility] History of Present illness Narrative* Francisco Suh MD - 04/02/2024 11:23 AM EDT Patient presents with: Headache: Congestion sinus pressure x2 weeks HPI: Feeling progressively worsening sinus symptoms for 2 weeks. He has seasonal allergies. Positive symptoms: Cough from PND, Sinus pressure, Nasal Congestion, Post nasal drainage, Malaise, Headache, flared up IBS (Diarrhea, cramping), tinnitus flare, ear pressure Negative symptoms: Fever, OTC: bentyl, takes on allergy medicine. 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 07/06/2018 Basal cell carcinoma 12/02/2021 Bilateral hip pain 01/21/2023 BPH (benign prostatic hyperplasia) s/p removal Callus of foot 09/22/2023 Seeing podiatry Chronic insomnia 02/24/2019 Controlled type 2 diabetes mellitus with stage 3 chronic kidney disease, without long-term current use of insulin ([facility]) 02/24/2019 Decreased libido 01/30/2018 Degenerative retinal drusen of both eyes 05/30/2015 Diabetic eye exam ([facility]) 03/18/2022 Last done 01/05/22 Non-Proliferative Diabetic Retinopathy mild [facility] (erectile dysfunction) 05/20/2021 Essential hypertension, benign 06/06/2006 Ex-smoker 05/20/2021 Started age 16, up to 2 PPD quit age 21 Gastroesophageal reflux disease with esophagitis without hemorrhage 05/20/2021 Herniated lumbar intervertebral disc History of BPH s/p removal History of depression Iron deficiency anemia 06/21/2020 Irritable bowel syndrome with both constipation and diarrhea 07/31/2021 Leg cramps 01/30/2018 Living will on file at physician's office 10/13/2022 DPA: catherine () Low testosterone in male 06/21/2020 Lumbar radiculopathy 02/24/2019 Lumbar spinal stenosis 05/18/2023 MRI 02/2023- [facility] Malignant melanoma of torso excluding breast ([facility]) 02/11/2020 Mixed hyperlipidemia 03/20/2013 Nuclear sclerotic cataract of both eyes 05/30/2015 Pain in both lower extremities 10/13/2022 Peripheral retinal degeneration, paving stone, bilateral 09/09/2017 Peripheral sensory neuropathy due to type 2 diabetes mellitus ([facility]) 08/30/2022 Post-COVID chronic fatigue 09/22/2023 Along with HS's and body aches: Has FMLA for Posterior vitreous detachment of left eye 08/31/2016 Posterior vitreous detachment of right eye 09/09/2017 Renal cyst, right 08/10/2021 Simple, benign US 07/2021 Retinopathy 03/19/2022 Mild B/l Rotator cuff tear, left Senile nuclear sclerosis 05/17/2017 Senile nuclear sclerosis, bilateral 09/09/2017 SVT (supraventricular tachycardia) ([facility]) 05/20/2021 Treated with Ablation: 2013 Tinnitus of both ears 12/30/2023 Type 2 diabetes mellitus with retinopathy, without long-term current use of insulin ([facility]) 09/09/2017 Uncontrolled type 2 diabetes mellitus with stage 3 chronic kidney disease, without long-term current use of insulin 01/30/2018 Vitreous syneresis of both eyes 05/30/2015 Well adult exam 08/23/2022 MEDICATIONS: Current Outpatient Medications Medication Sig ondansetron orally disintegrating (ZOFRAN ODT) 4 mg disintegrating tablet Take 1 tablet by mouth every 6 hours as needed for nausea/vomiting. docusate sodium (COLACE) 100 mg capsule Take 1 capsule by mouth two times a day as needed for constipation. ferrous sulfate (SLOW FE) 137 mg (45 mg iron) TbER Take 1 tablet by mouth every other day. atorvastatin (LIPITOR) 10 mg tablet Take 1 tablet by mouth daily at bedtime. For cholesterol. baclofen 10 mg tablet Take 1 tablet by mouth three times a day as needed (muscle spasms). dulaglutide (TRULICITY) 1.5 mg/0.5 mL pen injector Inject 1.5 mg subcutaneously one time a week. Inject once per week. Discard Pen After esomeprazole (NEXIUM) 40 mg capsule Take 1 capsule by mouth once daily. metFORMIN (GLUCOPHAGE) 1,000 mg tablet Take 1 tablet by mouth two times a day with meals. traZODone (DESYREL) 100 mg tablet Take 1 tablet by mouth daily at bedtime. dicyclomine (BENTYL) 10 mg capsule Take 1 capsule by mouth before meals and at bedtime. (Patient taking differently: Take 10 mg by mouth before meals and at bedtime. PRN) EPINEPHrine (AUVI-Q) 0.3 mg/0.3 mL auto-injector Inject 0.3 mL intramuscularly as needed. blood sugar diagnostic (BLOOD GLUCOSE TEST) test strip Test blood sugar(s) 2 times daily. Dx: OtherDM Code E11.22 Insulin: Yes fluticasone (FLONASE) 50 mcg/actuation nasal spray Use 2 Sprays in each nostril once daily. Rinse mouth after use. losartan (COZAAR) 100 mg tablet Take 1 tablet by mouth once daily. carvedilol (COREG) 25 mg tablet Take 1 tablet by mouth twice daily. Per CardioDr. Schneider amLODIPine (NORVASC) 10 mg tablet Take 1 tablet by mouth once daily. Per CardioDr. Schneider Lancets lancets Test blood sugar(s) 2 times daily. Dx: Other DM Code E11.22 Insulin: Yes No current facility-administered medications for this visit. ALLERGIES: ALLERGIES Allergen Reactions Bee Sting Anaphylaxis Amitriptyline Intolerance Did not tolerate. Tramadol Vomiting VITALS: BP 134/68 Pulse 99 Temp 36.7 C (98.1 F) Resp 18 Wt 91 kg (200 lb 9.9 oz) SpO2 97% BMI 29.84 kg/m PHYSICAL EXAM: GEN: mildly ill appearing HEENT: PERRL, EOMI, conjunctiva injected Ears: TMs without erythema, bulge, or effusion Sinuses: non-tender frontal sinus, tender maxillary sinuses Throat: moist mucous membranes, no erythema, no exudate Neck: supple, no thyromegaly, no lymphadenopathy HEART: regular rate and rhythm, no murmurs LUNGS: clear to auscultation, no wheezes or crackles, no increased WOB ASSESSMENT/PLAN: 1. Acute non-recurrent sinusitis, unspecified location - ICD9: 461.9, ICD10: J01.90 - AMOXICILLIN 875 MG-POTASSIUM CLAVULANATE 125 MG TABLET Discussed adding nasal steroid spray for seasonal allergies. Francisco Suh MD documented in this encounterAv[facility] Instructions* Patient Instructions* Lorie Moses APRN.[facility] - 01/31/2024 3:33 PM EDT HIGH FIBER DIET Principle of diet: Food which contain a large amount of indigestible material contribute bulk to the large intestine and promote bowel movement. This list contains foods which you should encourage your child to eat and foods which should be consumed in limited quantity. It is very important when your child is on a high fiber diet that increased fluids are consumed as this is also an important part of overall treatment. Food Group Foods to Encourage Foods to Limit Beverages All Those with high sugar content: Thien-Aid, Hi-C Breads Breads,crackers, breads made from 100% whole wheat or whole rye,grahm,wheat or rye crackers White bread or crackers Cereals Brain or whole grain cerals Non-whole grain cereals, sugar coated. Desserts Any especially fresh fruits and nuts Those high in sugar Eggs Any form None Vegetables All, especially raw. Three or more servings daily. None Fruits and juices All especially dried or fresh. Three or more servings daily None Meats, fish, poultry All None Cheese All None Potatoes and starches Baked with skin, sweet potatoes, yams, brown or wild rice White rice, spaghetti, macaroni noodles. Soups [place]omack, vegetable, chili None RICE Brown, cooked 1 cup 2.0 White, cooked 1 cup 1.0 FRUITS Apple, raw, with skin I large 8.0 Raspberries 1 cup 5.8 Blueberries, raw 1 cup 4.4 Pear, raw 1 medium 4.1 Prunes, dried 6 large 3.6 Raisins 1/2 cup 3.2 Sprague 1 medium 3.1 Strawberries, raw 1 cup 2.8 Grapes with skin 1 cup 2.6 Pear, canned or packed 1 cup 2.3 Cherries, frozen or raw 10 1.1 Jenkins, raw 1 cup 0.5 Watermelon, raw 1 cup 0.3 VEGETABLES Beans, bakes 1/2 cup 10.9 Peas, green, frozen, canned 1/2 cup 5.2 Beans,red,kidney 1/2 cup 4.8 Rolette, sweet 1-4 cob 4.7 Broccoli, steamed 2/3 cup 4.1 Potato, sweet or baked 1 small 4.0 Potato chips 15 3.6 Potato, white, raw 1 small 3.5 Squash,baked, winter 1/2 cup 3.5 Popcorn 31/2 cup 3.5 Rolette, sweet, canned 1/2 cup 3.2 Potato, [place] fried 20 3.2 Zucchini squash 1/2 cup 2.2 Carrots, cooked 1/2 cup 2.2 [place] sprouts 1/2 cup 2.0 Cabbage cooked 1/2 cup 1.8 Beans, green, waxed 1/2 cup 1.7 Beets, cooked 1/2 cup 1.5 Beans, hoang 1/2 cup 1.4 Cauliflower 1/2 cup 1.13 NUTS AND SEEDS [place] seeds 2.oz 8.1 Peanuts 4 tbsp. 5.6 Peanutbutter, smooth 2 tbsp. 2.6 documented in this encounterAvita [facility]04-02-[facility]24 History of Present illness Narrative* Lorie Moses, WOODY.SOCIAL MEDIA MANAGER - 01/31/2024 3:23 PM EDT Chief Complaint Patient presents with: Follow Up: IBS flare up X 1 week HPI Dar Rose is a 68 year old male who presents here today for Above Complaints.. Patient presents for IBS flare up. Patient reports he alternates between constipation and diarrhea.Patient also reports RUQ pain and nausea. Has taken bentyl in the last 3 days. Patient reports nausea is new symptom. RUQ common with his flare up. Patient currently has bentyl for diarrhea and milk of mag for constipation as well as colace. Past medical history, appointments, medications, allergies reviewed. 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 07/06/2018 Basal cell carcinoma 12/02/2021 Bilateral hip pain 01/21/2023 BPH (benign prostatic hyperplasia) s/p removal Callus of foot 09/22/2023 Seeing podiatry Chronic insomnia 02/24/2019 Controlled type 2 diabetes mellitus with stage 3 chronic kidney disease, without long-term current use of insulin ([facility]) 02/24/2019 Decreased libido 01/30/2018 Degenerative retinal drusen of both eyes 05/30/2015 Diabetic eye exam (HCC) 03/18/2022 Last done 01/05/22 Non-Proliferative Diabetic Retinopathy mild [facility] (erectile dysfunction) 05/20/2021 Essential hypertension, benign 06/06/2006 Ex-smoker 05/20/2021 Started age 16, up to 2 PPD quit age 21 Gastroesophageal reflux disease with esophagitis without hemorrhage 05/20/2021 Herniated lumbar intervertebral disc History of BPH s/p removal History of depression Iron deficiency anemia 06/21/2020 Irritable bowel syndrome with both constipation and diarrhea 07/31/2021 Leg cramps 01/30/2018 Living will on file at physician's office 10/13/2022 DPA: ctaherine () Low testosterone in male 06/21/2020 Lumbar radiculopathy 02/24/2019 Lumbar spinal stenosis 05/18/2023 MRI 02/2023- [facility] Malignant melanoma of torso excluding breast (HCC) 02/11/2020 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 Along with HS's and body aches: Has FMLA for Posterior vitreous detachment of left eye 08/31/2016 Posterior vitreous detachment of right eye 09/09/2017 Renal cyst, right 08/10/2021 Simple, benign US 07/2021 Retinopathy 03/19/2022 Mild B/l Rotator cuff tear, left Senile nuclear sclerosis 05/17/2017 Senile nuclear sclerosis, bilateral 09/09/2017 SVT (supraventricular tachycardia) (HCC) 05/20/2021 Treated with Ablation: 2013 Tinnitus of both ears 12/30/2023 Type 2 diabetes mellitus with retinopathy, without long-term current use of insulin (HCC) 09/09/2017 Uncontrolled type 2 diabetes mellitus with stage 3 chronic kidney disease, without long-term current use of insulin 01/30/2018 Vitreous syneresis of both eyes 05/30/2015 Well adult exam 08/23/2022 Previous Surgical History PAST SURGICAL HISTORY Procedure Laterality Date COLONOSCOPY 2011 COLONOSCOPY FLX DX W/COLLJ SPEC WHEN PFRMD 08/21/2018 repeat 5 years ESOPHAGOGASTRODUODENOSCOPY TRANSORAL DIAGNOSTIC 08/21/2018 repeat 2 years FASCT PALM W/WO Z-PLASTY TISSUE REARGMT/SKN GRFT Left 01/05/2018 A1 sánchez release ring finger HEART SURGERY HX INCISE FINGER TENDON SHEATH 09/15/2023 Ring trigger finger release Right ring open palmar fasciectomy LAPS PROSTECT RETROPUBIC RAD W/NRV SPARING ROBOT 02/02/2019 for enlarged prostate PAST SURGICAL HISTORY OF 1999 rotator cuff left PAST SURGICAL HISTORY OF 2013 ablation, SVT TONSILLECTOMY HX Family History FAMILY HISTORY Problem Relation Age of Onset other (cancer, lung) Mother Alzheimer's Disease Father No Known Problems Sister Heart Attack Brother No Known Problems Maternal Grandmother No Known Problems Maternal Grandfather No Known Problems Paternal Grandmother No Known Problems Paternal Grandfather Patient Allergies ALLERGIES Allergen Reactions Bee Sting Anaphylaxis Amitriptyline Intolerance Did not tolerate. Tramadol Vomiting Current Medications Current Outpatient Medications on File Prior to Visit Medication Sig docusate sodium (COLACE) 100 mg capsule Take 1 capsule by mouth two times a day as needed for constipation. ferrous sulfate (SLOW FE) 137 mg (45 mg iron) TbER Take 1 tablet by mouth every other day. atorvastatin (LIPITOR) 10 mg tablet Take 1 tablet by mouth daily at bedtime. For cholesterol. baclofen 10 mg tablet Take 1 tablet by mouth three times a day as needed (muscle spasms). dulaglutide (TRULICITY) 1.5 mg/0.5 mL pen injector Inject 1.5 mg subcutaneously one time a week. Inject once per week. Discard Pen After esomeprazole (NEXIUM) 40 mg capsule Take 1 capsule by mouth once daily. metFORMIN (GLUCOPHAGE) 1,000 mg tablet Take 1 tablet by mouth two times a day with meals. traZODone (DESYREL) 100 mg tablet Take 1 tablet by mouth daily at bedtime. dicyclomine (BENTYL) 10 mg capsule Take 1 capsule by mouth before meals and at bedtime. (Patient taking differently: Take 10 mg by mouth before meals and at bedtime. PRN) EPINEPHrine (AUVI-Q) 0.3 mg/0.3 mL auto-injector Inject 0.3 mL intramuscularly as needed. blood sugar diagnostic (BLOOD GLUCOSE TEST) test strip Test blood sugar(s) 2 times daily. Dx: OtherDM Code E11.22 Insulin: Yes fluticasone (FLONASE) 50 mcg/actuation nasal spray Use 2 Sprays in each nostril once daily. Rinse mouth after use. losartan (COZAAR) 100 mg tablet Take 1 tablet by mouth once daily. carvedilol (COREG) 25 mg tablet Take 1 tablet by mouth twice daily. Per Cardio, Dr. Schneider amLODIPine (NORVASC) 10 mg tablet Take 1 tablet by mouth once daily. Per CardioDr. Schneider Lancets lancets Test blood sugar(s) 2 times daily. Dx: Other DM Code E11.22 Insulin: Yes No current facility-administered medications on file prior to visit. Social History Social History Tobacco Use Smoking status: Former Smokeless tobacco: Never Tobacco comments: quit around 1983 Vaping Use Vaping Use: Never used Substance Use Topics Alcohol use: Yes Comment: seldom beer Drug use: No Review of Symptoms REVIEW OF SYSTEMS SEE HPI EXAM: BP 142/80 Pulse 74 Resp 16 Wt 91.2 kg (201 lb) BMI 29.90 kg/m General Appearance: Well appearing, alert, in no acute distress, well-hydrated, well nourished.. Abdomen: Normal abdominal exam, Abdomen soft, non-tender. Bowel sounds normal. No masses, organomegaly. Health Maintenance List Dilated Retinal Exam due on 02/04/2024 Covid-19 Vaccine( season) due on 09/27/2024 Depression Assessment due on 10/30/2024 RSV Vaccine(1 - 1-dose 60+ series) due on 12/29/2024 Shingrix Vaccine(1 of 2) due on 12/29/2024 HbA1C due on 05/25/2024 Diabetic Foot Exam due on 08/16/2024 Urine Albumin:Creatinine Ratio due on 11/25/2024 LDL Cholesterol due on 11/25/2024 Serum Creatinine due on 11/25/2024 Hemoglobin/Hematocrit due on 11/25/2024 Annual PCP Team Chronic Disease Visit due on 12/29/2024 BP Controlled (<130/80) due on 12/29/2024 DTaP,Tdap,Td Vaccine(2 - Td or Tdap) due on 03/13/2027 Colorectal Cancer Screening due on 06/01/2027 Abdominal Aortic Aneurysm Screening Completed Influenza Vaccine Completed Advance Directive Discussion Completed Hepatitis C Screening Completed Pneumococcal Vaccine: 65+ Completed HPV Vaccine Aged Out ASSESSMENT/PLAN: 1. Irritable bowel syndrome with both constipation and diarrhea - ICD9: 564.1, ICD10: K58.2 - CONSULT TO GASTROENTEROLOGY -Continue current medication regimen. Lorie Moses APRN.SOCIAL MEDIA MANAGER documented in this encounterAvita [facility]03-05-2024 Miscellaneous Notes* Telephone Encounter - Milind Denis MA - 01/03/2024 8:32 AM EST Patient notified and voiced understanding. Milind Denis MA * Telephone Encounter - Cruz Prado MD - 01/02/2024 10:16 PM EST Let patient know testosterone level was ok. documented in this encounterAvita [facility]02-21-2024 Miscellaneous Notes* Telephone Encounter - Milind Denis MA - 12/21/2023 8:23 AM EST Patient notified and voiced understanding., Milind Denis MA * Telephone Encounter - Cruz Prado MD - 12/20/2023 5:09 PM EST [facility] The following approved medication requests have been transmitted electronically. Requested Prescriptions Signed Prescriptions Disp Refills baclofen 10 mg tablet 90 tablet 1 Sig: Take 1 tablet by mouth three times a day as needed (muscle spasms). Authorizing Provider: CRUZ PRADO MD * Telephone Encounter - Miranda Landry - 12/20/2023 4:58 PM EST Reagan is calling Cruz Prado MD today with concern regarding Medication Problem Having issues with Elixir and would like this to be sent to local pharmacy. [facility] in [place] Disp Refills Start End baclofen 10 mg tablet 90 tablet 1 11/29/2023 -- Sig: Take 1 tablet by mouth three times a day as needed (muscle spasms). Sent to pharmacy as: baclofen 10 mg tablet Class: Normal Route: ORAL Patient has been identified by name and birthdate. Duration of symptoms: N/A Person calling: self Call patient at: at home [phone] (home) [phone] (cell) Was an appointment scheduled: No Closing statement: Results or non-symptom based questions: Thank you for calling [facility], your call will be returned within the next business day. Miranda Collier documented in this encounterAvita Health [facility]12-28-2023 NoteHNO ID: [id number] Author: Julissa Garcia, TECHNOLOGIST Service: ? Author Type: Technologist Type: Progress Notes Filed: 10/27/2023 9:08 AM Note Text: Radiology Service Progress Note PATIENT NAME: Dar Rose DATE OF SERVICE: October 27, 2023 TIME: 9:08 AM PATIENT IDENTITY VERIFICATION COMPLETED USING TWO (2) IDENTIFIERS: Name and Date of confirmed by patient verbally. FALL SCREENING: Has the patient had 2 falls in the last year or 1 fall with injury or currently using an Ambulatory Assistive Device (Walker, Cane, Wheelchair, Crutches, etc.)? No PATIENT GENDER DATA: Male PATIENT RELEVANT IMPLANT DATA REVIEWED: Yes RADIOLOGY DEPARTMENT: Ultrasound PERIPHERAL IV DATA: Not applicable SIGNED BY: TECHNOLOGIST [place] October 27, 2023 9:08 AMReding[facility]11-29-[facility] Miscellaneous Notes* Telephone Encounter - Milind Denis MA - 09/28/2023 8:32 AM EST Faxed. Milind Denis MA * Telephone Encounter - Cruz Prado MD - 09/28/2023 8:15 AM EST Paperwork completed. * Telephone Encounter - Milind Denis MA - 09/14/2023 4:58 PM EST Sent this to Dr. Linares and nurse contacted office and indicated that this paperwork needs signedand completed by both providers. Attached recent office visit with PCP Given to PCP to review. Milind Denis MA * Telephone Encounter - Milind Denis MA - 09/12/2023 11:48 AM EST Received fax from [facility] regarding patient's diabetic shoes. I reviewed chart and Dr. Linares ordered. Placed paperwork in outgoing to be taken to other building. Milind Denis MA documented in this encounterAvita [facility]11-29-2023 Miscellaneous Notes* Telephone Encounter - Milind Denis MA - 09/28/2023 8:32 AM EST Faxed and scanned. Milind Denis MA * Telephone Encounter - Cruz Prado MD - 09/28/2023 8:16 AM EST Forms ready for patient. Please scan copy into chart. * Telephone Encounter - Kristina Ya Cma - 09/15/2023 12:13 PM EST Pt stopped by Lorie moses's office to drop of FMLA paperwork due to PCP being out of office- paperwork placed on PCP desk. Type of form: [place] Re certification Form received via walk in When form is completed, Fax form to [phone] and call pt to filler picker Form has been forwarded to Dr. Prado's desk for completion Kristina Ya Cma documented in this encounterAvita [facility]11-28-2023 History of Present illness Narrative* Alexandria Contreras APRN.[facility] - 09/27/2023 9:44 AM EST 09/27/2023 Patient presents with: Nasal Congestion: And cough x2 weeks. Home covid test negative. SUBJECTIVE: This is a 67 year old that is here today for Above Complaints.. For the last two weeks has had nasal congestion. Did complete home COVID-19 test which was negative. Was taking some mucinex. Also positive for cough, sore throat, occasional headache, and sinus drainage and pain. 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 07/06/2018 Basal cell carcinoma 12/02/2021 BPH (benign prostatic hyperplasia) s/p removal Callus of foot 09/22/2023 Seeing podiatry Chronic insomnia 02/24/2019 Controlled type 2 diabetes mellitus with stage 3 chronic kidney disease, without long-term current use of insulin ([facility]) 02/24/2019 Decreased libido 01/30/2018 Degenerative retinal drusen of both eyes 05/30/2015 Diabetic eye exam ([facility]) 03/18/2022 Last done 01/05/22 Non-Proliferative Diabetic Retinopathy mild [facility] (erectile dysfunction) 05/20/2021 Essential hypertension, benign 06/06/2006 Ex-smoker 05/20/2021 Started age 16, up to 2 PPD quit age 21 Gastroesophageal reflux disease with esophagitis without hemorrhage 05/20/2021 Herniated lumbar intervertebral disc History of BPH s/p removal History of depression Iron deficiency anemia 06/21/2020 Irritable bowel syndrome with both constipation and diarrhea 07/31/2021 Leg cramps 01/30/2018 Living will on file at physician's office 10/13/2022 DPA: catherine () Low testosterone in male 06/21/2020 Lumbar radiculopathy 02/24/2019 Malignant melanoma of torso excluding breast ([facility]) 02/11/2020 Mixed hyperlipidemia 03/20/2013 Nuclear sclerotic cataract of both eyes 05/30/2015 Peripheral retinal degeneration, paving stone, bilateral 09/09/2017 Peripheral sensory neuropathy due to type 2 diabetes mellitus ([facility]) 08/30/2022 Post-COVID chronic fatigue 09/22/2023 Along with HS's and body aches: Has FMLA for Posterior vitreous detachment of left eye 08/31/2016 Posterior vitreous detachment of right eye 09/09/2017 Renal cyst, right 08/10/2021 Simple, benign US 07/2021 Retinopathy 03/19/2022 Mild B/l Rotator cuff tear, left Senile nuclear sclerosis 05/17/2017 Senile nuclear sclerosis, bilateral 09/09/2017 SVT (supraventricular tachycardia) 05/20/2021 Treated with Ablation: 2013 Type 2 diabetes mellitus with retinopathy, without long-term current use of insulin (HCC) 09/09/2017 Uncontrolled type 2 diabetes mellitus with stage 3 chronic kidney disease, without long-term current use of insulin 01/30/2018 Vitreous syneresis of both eyes 05/30/2015 Well adult exam 08/23/2022 ALLERGIES Bee Sting, Amitriptyline, and Tramadol MEDICATIONS Current Outpatient Medications Medication Sig meloxicam (MOBIC) 15 mg tablet Take 1 tablet by mouth once daily. baclofen 2 % cmap Apply 1 Dose to affected area two times a day as needed. trimethoprim-polymyxin (POLYTRIM) 10,000 unit- 1 mg/mL ophthalmic solution Use 2 Drops in the left eye three times a day. dulaglutide (TRULICITY) 1.5 mg/0.5 mL pen injector Inject 1.5 mg subcutaneously one time a week. Inject once per week. Discard Pen After dicyclomine (BENTYL) 10 mg capsule Take 1 capsule by mouth before meals and at bedtime. traZODone (DESYREL) 100 mg tablet Take 1 tablet by mouth daily at bedtime. metFORMIN (GLUCOPHAGE) 1,000 mg tablet Take 1 tablet by mouth twice daily with meals. esomeprazole (NEXIUM) 40 mg capsule Take 1 capsule by mouth once daily. hydrOXYzine HCl (ATARAX) 10 mg tablet Take 1 tablet by mouth three times daily as needed for anxiety. EPINEPHrine (AUVI-Q) 0.3 mg/0.3 mL auto-injector Inject 0.3 mL intramuscularly as needed. blood sugar diagnostic (BLOOD GLUCOSE TEST) test strip Test blood sugar(s) 2 times daily. Dx: OtherDM Code E11.22 Insulin: Yes fluticasone (FLONASE) 50 mcg/actuation nasal spray Use 2 Sprays in each nostril once daily. Rinse mouth after use. pseudoephedrine (SUDAFED) 30 mg tablet Take Four 4 (30 mg) Tablets for an erection lasting more than 2 hours. If not improved in 1 hour MUST go to ER losartan (COZAAR) 100 mg tablet Take 1 tablet by mouth once daily. carvedilol (COREG) 25 mg tablet Take 1 tablet by mouth twice daily. Per Cardio, Dr. Schneider amLODIPine (NORVASC) 10 mg tablet Take 1 tablet by mouth once daily. Per Cardio, Dr. Schneider Lancets lancets Test blood sugar(s) 2 times daily. Dx: Other DM Code E11.22 Insulin: Yes docusate sodium (COLACE) 100 mg capsule Take 1 capsule by mouth twice daily as needed for Constipation. No current facility-administered medications for this visit. Medications and allergies reviewed by this provider. SOCIAL HISTORY Social History Tobacco Use Smoking status: Former Smokeless tobacco: Never Tobacco comments: quit around 1983 Vaping Use Vaping Use: Never used Substance Use Topics Alcohol use: Yes Comment: seldom beer Drug use: No REVIEW OF SYSTEMS All other reviewed and negative other than HPI. OBJECTIVE: BP 150/82 Pulse 68 Temp (!) 35.6 C (96 F) Resp 18 Wt 93.4 kg (206 lb) SpO2 96% BMI 30.87 kg/m . Vital signs reviewed by this provider. APPEARANCE Well appearing, alert, in no acute distress, well-hydrated, well nourished. EYES conjunctiva and sclera normal. EARS External ears normal, canals clear NOSE/SINUS positive findings: sinus tenderness maxillary bilateral THROAT normal, no erythema NECK Supple, no adenopathy HEART RRR with normal S1 and S2, no murmurs, no gallops, no JVD appreciated LUNG clear to auscultation. No wheezes, rhonchi or rales SKIN Skin color, texture, turgor normal, no suspicious rashes or lesions BP Controlled (<130/80) Never done Hepatitis B Vaccine(1 of 3 - Risk 3-dose series) Never done RSV Vaccine(1 - 1-dose 60+ series) Never done Advance Directive Discussion due on 10/31/2022 Urine Albumin:Creatinine Ratio due on 09/29/2023 Shingrix Vaccine(1 of 2) due on 10/13/2023 Covid-19 Vaccine( - 2022- season) due on 09/27/2024 HbA1C due on 11/09/2023 Dilated Retinal Exam due on 02/04/2024 LDL Cholesterol due on 05/09/2024 Serum Creatinine due on 05/09/2024 Hemoglobin/Hematocrit due on 05/09/2024 Diabetic Foot Exam due on 08/16/2024 Annual PCP Team Chronic Disease Visit due on 09/01/2024 DTaP,Tdap,Td Vaccine(2 - Td or Tdap) due on 03/13/2027 Colorectal Cancer Screening due on 06/01/2027 Abdominal Aortic Aneurysm Screening Completed Influenza Vaccine Completed Depression Assessment Completed Hepatitis C Screening Completed Pneumococcal Vaccine: 65+ Completed HPV Vaccine Aged Out ASSESSMENT/PLAN: 1. Pain of maxillary sinus - ICD9: 478.19, ICD10: J34.89 - Will begin treatment with Augmentin 875 mg PO BID for 10 days - The patient should also be given OTC cough and cold meds as needed and nasal saline gtts and suction prn for the first 5-7 days of treatment. - Supportive care with plenty of fluids, rest, and analgesia prn. - Follow up in 3-5 days if symptoms persist or worsen. - AMOXICILLIN 875 MG-POTASSIUM CLAVULANATE 125 MG TABLET Alexandria Contreras APRN.SOCIAL MEDIA MANAGER Prescription instructions reviewed with patient as applicable. Patient advised if symptoms do not improve or if symptoms worsen sooner, to contact their primary care physician. Potential red flag symptoms discussed with the patient. Reviewed appropriate action plan to take if red flag symptoms occur. Patient agreeable to treatment plan. I spent a total of 20 minutes on the date of the service which included preparing to see the patient, [id number] patient care, completing clinical documentation, obtaining and/or reviewing separately obtained history, performing a medically appropriate examination, counseling and educating the pat ient/family/caregiver, and ordering medications, tests, or procedures. documented in this encounterAvita [facility]11-27-[facility]23 History of Present illness Narrative* Nkechi Ramos PA-C - 09/26/2023 2:59 PM EST Nkechi Vetovitz, PA-C Department of Orthopaedics Orthopaedics [address] [place] [address] Dept: [phone] Dept September 26, 2023 CHIEF COMPLAINT: Established Patient of the Right Ring Finger (1 week, 4 days post op Right ring trigger finger release, suture removal). ASSESSMENT: M65.341 Trigger ring finger of right hand (primary encounter diagnosis) M72.0 Dupuytren's disease of palm SUMMARY/PLAN: Patient presents 1 week and 4 days status post right ring trigger finger release. He has been doingwell but having quite a bit of stiffness, pain today is a 5 out of 10 aching. 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 We discussed proper hand washing, nosoaking of the operative hand. No heavy lifting, pushing or pulling with the operative hand, encourage gentle motion. We discussed scar massage. Follow up as planned. Exam: Incision sites well approximated without erythema or drainage, mild but appropriate edema, no ecchymosis. Patient is able to form a loose composite fist and extend the digit without any locking or catching, there is subjective stiffness at the right ring PIP. Imaging: Deferred today. Mr. Dar Rose was advised as to contrast therapies and/or to take analgesics/anti-inflammatories as needed and all contraindications were reviewed. Supporting Information Below: Medications: Current Outpatient Medications Medication Sig baclofen 2 % cmap Apply 1 Dose to affected area two times a day as needed. trimethoprim-polymyxin (POLYTRIM) 10,000 unit- 1 mg/mL ophthalmic solution Use 2 Drops in the left eye three times a day. dulaglutide (TRULICITY) 1.5 mg/0.5 mL pen injector Inject 1.5 mg subcutaneously one time a week. Inject once per week. Discard Pen After dicyclomine (BENTYL) 10 mg capsule Take 1 capsule by mouth before meals and at bedtime. traZODone (DESYREL) 100 mg tablet Take 1 tablet by mouth daily at bedtime. metFORMIN (GLUCOPHAGE) 1,000 mg tablet Take 1 tablet by mouth twice daily with meals. esomeprazole (NEXIUM) 40 mg capsule Take 1 capsule by mouth once daily. hydrOXYzine HCl (ATARAX) 10 mg tablet Take 1 tablet by mouth three times daily as needed for anxiety. EPINEPHrine (AUVI-Q) 0.3 mg/0.3 mL auto-injector Inject 0.3 mL intramuscularly as needed. blood sugar diagnostic (BLOOD GLUCOSE TEST) test strip Test blood sugar(s) 2 times daily. Dx: OtherDM Code E11.22 Insulin: Yes fluticasone (FLONASE) 50 mcg/actuation nasal spray Use 2 Sprays in each nostril once daily. Rinse mouth after use. pseudoephedrine (SUDAFED) 30 mg tablet Take Four 4 (30 mg) Tablets for an erection lasting more than 2 hours. If not improved in 1 hour MUST go to ER losartan (COZAAR) 100 mg tablet Take 1 tablet by mouth once daily. carvedilol (COREG) 25 mg tablet Take 1 tablet by mouth twice daily. Per Cardio, Dr. Schneider amLODIPine (NORVASC) 10 mg tablet Take 1 tablet by mouth once daily. Per Cardio, Dr. Schneider Lancets lancets Test blood sugar(s) 2 times daily. Dx: Other DM Code E11.22 Insulin: Yes docusate sodium (COLACE) 100 mg capsule Take 1 capsule by mouth twice daily as needed for Constipation. meloxicam (MOBIC) 15 mg tablet Take 1 tablet by mouth once daily. No current facility-administered medications for this visit. Allergies: Bee Sting, Amitriptyline, and Tramadol This note was partially generated using 1bib voice recognition system, and there may be some incorrect words, spellings, and punctuation that were not noted in checking the note before saving. Nkechi Ramos PA-C * Parvin Perera LPN - 09/26/2023 2:36 PM EST Patient presents with: Right Ring Finger - Established Patient: 1 week, 4 days post op Right ring trigger finger release, suture removal AMB ROOMING INTAKE FLOWSHEET DATA Pain Pain Level: 5 Pain Location: Hand-Right Description: (pulling) Duration Amount of Time: 11 Duration Units: Days Frequency: Intermittent (when trying to sleep, or pick something up painful, pulling sensation) Intervention/Comfort measure: Medication (tylenol) Parvin Perrea LPN documented in this encounterAvita [facility]11-15-2023 Miscellaneous Notes* Telephone Encounter - Yady Herrera Ma - 09/14/2023 9:19 AM EST Forms completed and returned to [facility]'s Office. Confirmation received. Copy sent for scanning. * Telephone Encounter - Aleja Zheng LPN - 09/14/2023 8:21 AM EST Patient called. Requested to know surgery time. Informed he would get called this afternoon with surgery time. Patient is also asking that FMLA paperwork get to his employer as soon as possible as they still have not received it and asking for it. Aleja Zheng LPN * Telephone Encounter - Yady Herrera Ma - 09/13/2023 8:26 AM EST Paperwork completed. Waiting for physician signature. * Telephone Encounter - Catherine Moreno Ma - 09/07/2023 2:59 PM EST Type of form: FMLA Form received via walk in When form is completed, Fax form to Armen King @ [phone] Form has been forwarded to [facility] Catherine Moreno Ma documented in this encounterAvita [facility]10-27-2023 Miscellaneous Notes* Telephone Encounter - Yady Herrera Ma - 08/26/2023 2:32 PM EDT Surgery has been scheduled as requested. Patient stated in OV that his FMLA would start on 09/16/2023 and return would be 09/17/2023 on light duty. * Telephone Encounter - Yady Herrera Ma - 08/22/2023 3:13 PM EDT Surgical request completed for right ring trigger finger release at [facility] on 09/15/2023. Post op appointments have been scheduled and mailed to the patient. documented in this encounterAvita [facility]10-23-2023 History of Present illness Narrative* Pablito Ruiz MD - 08/22/2023 1:42 PM EDT Pablito Ruiz MD Department of Orthopaedics Orthopaedics [address] [facility] [address] Dept: [phone] Dept August 22, 2023 CHIEF COMPLAINT: Trigger Finger of the Right Ring Finger HPI He started with locking and catching of the ring finger on the right. It is causing him some functional troubles. ASSESSMENT: M65.341 Trigger ring finger of right hand (primary encounter diagnosis) M72.0 Dupuytren's disease of palm PLAN: We reviewed the risks, benefits, alternatives and potential complications again involving histrigger finger in addition to some Dupuytren's changes. He would like to have the issues taken careof surgically under local anesthetic. OBJECTIVE: Mr. Dar Rose is a pleasant 67 year old in no apparent distress. Gen:There were no vitals taken for this visit. nl development, non obese, no deformities ENT: Normocephalic, normal hearing, moist mucosa CV: Pulses:Radial= 2+ and symmetric, capillary refill < 2 secs, no peripheral edema/varicosities Skin: no rash, bruising or lesions. Good turgor. Psych: cooperative and appropriate, alert and oriented x 3, good mood and affect. Musculoskeletal: Melissa nodule and very minor cord formation, maybe 5 degrees of MCP contracture. TTP A1 ring with active locking and catching. Imaging: Deferred today Supporting Subjective Information Below: Past Surgical History: PAST SURGICAL HISTORY Procedure Laterality Date COLONOSCOPY 2012 COLONOSCOPY FLX DX W/COLLJ SPEC WHEN PFRMD 08/21/2018 repeat 5 years ESOPHAGOGASTRODUODENOSCOPY TRANSORAL DIAGNOSTIC 08/21/2018 repeat 2 years FASCT PALM W/WO Z-PLASTY TISSUE REARGMT/SKN GRFT Left 01/05/2018 A1 sánchez release ring finger HEART SURGERY HX LAPS PROSTECT RETROPUBIC RAD W/NRV SPARING ROBOT 02/02/2019 for enlarged prostate PAST SURGICAL HISTORY OF 1999 rotator cuff left PAST SURGICAL HISTORY OF 2013 ablation, SVT TONSILLECTOMY HX Medications: Current Outpatient Medications Medication Sig trimethoprim-polymyxin (POLYTRIM) 10,000 unit- 1 mg/mL ophthalmic solution Use 2 Drops in the left eye three times a day. dulaglutide (TRULICITY) 1.5 mg/0.5 mL pen injector Inject 1.5 mg subcutaneously one time a week. Inject once per week. Discard Pen After baclofen 10 mg tablet Take 1 tablet by mouth three times a day as needed (muscle spasms). dicyclomine (BENTYL) 10 mg capsule Take 1 capsule by mouth before meals and at bedtime. traZODone (DESYREL) 100 mg tablet Take 1 tablet by mouth daily at bedtime. metFORMIN (GLUCOPHAGE) 1,000 mg tablet Take 1 tablet by mouth twice daily with meals. esomeprazole (NEXIUM) 40 mg capsule Take 1 capsule by mouth once daily. hydrOXYzine HCl (ATARAX) 10 mg tablet Take 1 tablet by mouth three times daily as needed for anxiety. EPINEPHrine (AUVI-Q) 0.3 mg/0.3 mL auto-injector Inject 0.3 mL intramuscularly as needed. fluticasone (FLONASE) 50 mcg/actuation nasal spray Use 2 Sprays in each nostril once daily. Rinse mouth after use. pseudoephedrine (SUDAFED) 30 mg tablet Take Four 4 (30 mg) Tablets for an erection lasting more than 2 hours. If not improved in 1 hour MUST go to ER losartan (COZAAR) 100 mg tablet Take 1 tablet by mouth once daily. carvedilol (COREG) 25 mg tablet Take 1 tablet by mouth twice daily. Per Cardio, Dr. Schneider amLODIPine (NORVASC) 10 mg tablet Take 1 tablet by mouth once daily. Per CardioDr. Schneider docusate sodium (COLACE) 100 mg capsule Take 1 capsule by mouth twice daily as needed for Constipation. blood sugar diagnostic (BLOOD GLUCOSE TEST) test strip Test blood sugar(s) 2 times daily. Dx: OtherDM Code E11.22 Insulin: Yes Lancets lancets Test blood sugar(s) 2 times daily. Dx: Other DM Code E11.22 Insulin: Yes No current facility-administered medications for this visit. Allergies: Bee Sting, Amitriptyline, and Tramadol ROS: General (negative for fatigue, malaise, weight loss/gain) HEENT (negative for headache, earache, recent vision changes, sinus pain, sore throat) Respiratory (no recent shortness of breath, hemoptysis) CV (negative for chest tightness, palpitations) Musculoskeletal (see HPI) Psych (no depression, anxiety) Pablito Ruiz MD documented in this encounterAvita [facility]10-20-2023 History of Present illness Narrative* Gabby Stark APRN.SOCIAL MEDIA MANAGER - 08/19/2023 11:07 AM EDT Images from the original note were not included. Subjective The history is provided by the patient. No language arts teacher was used. HPI Dar Rose is a 67 year old male who presents today for CC of eye irritation. States he will sleep with eye open, and thinks it rubbed against pillow case. He denies any loss or change in vision or pain in eye. BP 138/78 Pulse 77 Temp 36.2 C (97.2 F) (Tympanic) Resp 16 Wt 93.6 kg (206 lb 6.4 oz) SpO2 96% BMI 30.93 kg/m Social History Tobacco Use Smoking status: Former Smokeless tobacco: Never Tobacco comments: quit around 1983 Vaping Use Vaping Use: Never used Substance Use Topics Alcohol use: Yes Comment: seldom beer Drug use: No 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 07/06/2018 Basal cell carcinoma 12/02/2021 BPH (benign prostatic hyperplasia) s/p removal Chronic insomnia 02/24/2019 Controlled type 2 diabetes mellitus with stage 3 chronic kidney disease, without long-term current use of insulin ([facility]) 02/24/2019 Decreased libido 01/30/2018 Degenerative retinal drusen of both eyes 05/30/2015 Diabetic eye exam ([facility]) 03/18/2022 Last done 01/05/22 Non-Proliferative Diabetic Retinopathy mild [facility] (erectile dysfunction) 05/20/2021 Essential hypertension, benign 06/06/2006 Ex-smoker 05/20/2021 Started age 16, up to 2 PPD quit age 21 Gastroesophageal reflux disease with esophagitis without hemorrhage 05/20/2021 Herniated lumbar intervertebral disc History of BPH s/p removal History of depression Iron deficiency anemia 06/21/2020 Irritable bowel syndrome with both constipation and diarrhea 07/31/2021 Leg cramps 01/30/2018 Living will on file at physician's office 10/13/2022 DPA: catherine () Low testosterone in male 06/21/2020 Lumbar radiculopathy 02/24/2019 Malignant melanoma of torso excluding breast ([facility]) 02/11/2020 Mixed hyperlipidemia 03/20/2013 Nuclear sclerotic cataract of both eyes 05/30/2015 Peripheral retinal degeneration, paving stone, bilateral 09/09/2017 Peripheral sensory neuropathy due to type 2 diabetes mellitus ([facility]) 08/30/2022 Posterior vitreous detachment of left eye 08/31/2016 Posterior vitreous detachment of right eye 09/09/2017 Renal cyst, right 08/10/2021 Simple, benign US 07/2021 Retinopathy 03/19/2022 Mild B/l Rotator cuff tear, left Senile nuclear sclerosis 05/17/2017 Senile nuclear sclerosis, bilateral 09/09/2017 SVT (supraventricular tachycardia) 05/20/2021 Treated with Ablation: 2013 Type 2 diabetes mellitus with retinopathy, without long-term current use of insulin ([facility]) 09/09/2017 Uncontrolled type 2 diabetes mellitus with stage 3 chronic kidney disease, without long-term current use of insulin 01/30/2018 Vitreous syneresis of both eyes 05/30/2015 Well adult exam 08/23/2022 I have confirmed and edited as necessary, the [facility] Review of Systems Constitutional: Negative for chills and fever. HENT: Negative for congestion, ear pain, sinus pain and sore throat. Eyes: Positive for redness. Negative for blurred vision, double vision, photophobia, pain and discharge. Respiratory: Negative for cough, sputum production, shortness of breath and wheezing. Cardiovascular: Negative for chest pain. Musculoskeletal: Negative for myalgias. Neurological: Negative for headaches. Objective Physical Exam Vitals and nursing note reviewed. Eyes: General: Lids are normal. Lids are everted, no foreign bodies appreciated. Vision grossly intact. Right eye: No foreign body or discharge. Left eye: No foreign body or discharge. Extraocular Movements: Extraocular movements intact. Conjunctiva/sclera: Right eye: Right conjunctiva is not injected. Left eye: Left conjunctiva is injected. Pupils: Pupils are equal, round, and reactive to light. Funduscopic exam: Right eye: Red reflex present. Left eye: Red reflex present. Comments: Globes are firm but not hard. Upper and lower lids were everted. There is no evidence of injury or foreign material. No hyphema is present. There is no evidence of periorbital cellulitis. There are no temporal, pulsatile masses. Flourescein stain was instilled into the left eye and a Wood's Lamp exam performed. There was uptake at 3 oclock position. Pulmonary: Effort: Pulmonary effort is normal. Skin: General: Skin is warm and dry. Neurological: Mental Status: He is alert and oriented to person, place, and time. Psychiatric: Mood and Affect: Affect normal. ASSESSMENT/PLAN: 1. Eye problem - ICD9: V41.1, ICD10: H57.9 Appears to be corneal abrasion Polytrim as ordered Follow up with eye doctor if no improvement Advise to go to ED for sudden loss or change in vision, pain in eye Diagnosis and treatment plan were discussed and questions were answered to the patient's satisfaction. Pt acknowledged understanding of concepts and follow up plan. Specific signs and symptoms that would indicate the need for higher level of care were discussed indetail warranting prompt ER evaluation. Gabby Stark APRN.CNP documented in this encounterAvita Health [facility]10-20-2023 Instructions* Patient Instructions* Gabby Stark APRN.CNP - 08/19/2023 11:04 AM EDT Cool compresses for eye inflammation/irritation frequently throughout the day. Go to ER for any sudden loss of vision or severe vision changes. Follow up with Eye doctor if no improvement in 1 week. documented in this encounterAvita Health [facility]10-17-2023 Instructions* Patient Instructions* Ani Linares - 08/16/2023 1:44 PM EDT Diabetes Foot Care Instructions When you have diabetes, proper foot care is very important. Poor foot care may lead to amputation of a foot or leg. As a person with diabetes, you are more vulnerable to foot problems, because diabetes can damage your nerves and reduce blood flow to your feet. Here are some diabetes foot care tips to follow: Wash and Dry Your Feet Daily Use mild soaps Use warm water Pat your skin dry; do not rub. Thoroughly dry your feet. After washing, use lotion on your feet to prevent cracking. Do not put lotion between your toes. Examine Your Feet Each Day Check the tops and bottoms of your feet. Have someone else look at your feet if you cannot see them. Check for dry, cracked skin. Look for blisters, cuts, scratches, or other sores. Check for redness, increased warmth, or tenderness when touching any area of your feet. Check for ingrown toenails, corns, and calluses. If you get a blister or sore from your shoes, do not pop it. Apply a bandage and wear a differentpair of shoes. Take Care of Your Toenails Cut toenails after bathing, when they are soft. Cut toenails straight across and smooth with a nail file. Avoid cutting into the corners of toes. Do not cut cuticles. If you have neuropathy (or decreased sensation in your feet) a air pumper should always cut your toenails. Be Careful When Exercising Walk and exercise in comfortable shoes. Do not exercise when you have open sores on your feet. Protect Your Feet With Shoes and Socks Never go barefoot. Always protect your feet by wearing shoes or hard-soled slippers or footwear. Avoid shoes with high heels and pointed toes. Avoid shoes that expose your toes or heels (such as open-toed shoes or sandals). These types of shoes increase your risk for injury and potential infections. Try on new footwear with the type of socks you usually wear. Do not wear new shoes for more than an hour at a time. Change your socks daily. Look and feel inside your shoes before putting them on to make sure there are no foreign objects orrough areas. Avoid tight socks. Wear natural-fiber socks (cotton, wool, or a cotton-wool blend). Wear special shoes if your health care provider recommends them. Wear shoes/boots that will protect your feet from various weather conditions (cold, moisture, etc.). Make sure your shoes fit properly. If you have neuropathy (nerve damage), you may not notice that your shoes are too tight. Perform the footwear test described below. Footwear Test Use this simple test to see if your shoes fit correctly: Stand on a piece of paper. (Make sure you are standing and not sitting, because your foot changes shape when you stand.) Trace the outline of your foot. Trace the outline of your shoe. Compare the tracings: Is the shoe too narrow? Is your foot crammed into the shoe? The shoe should be at least 1/2 inch longer than your longest toe and as wide as your foot. Proper Shoe Choices The following types of shoes are best for people with diabetes Closed toes and heels Leather uppers without a seam inside At least 1/2 inch extra space at the end of your longest toe Inside of shoe should be soft with no rough areas Outer sole should be made of stiff material Shoes should be at least as wide as your feet Tips for Foot Care in Diabetes Don't wait to treat a minor foot problem if you have diabetes. Follow your health care provider's guidelines and first aid guidelines. Report foot injuries and infections to your health care provider immediately. Check water temperature with your elbow, not your foot. Do not use a heating pad on your feet. Do not cross your legs. Do not self-treat your corns, calluses, or other foot problems. Go to your health care provider or air pumper to treat these conditions. documented in this encounterAvita Health [facility]10-17-2023 History of Present illness Narrative* Ani Linares - 08/16/2023 1:39 PM EDT Images from the original note were not included. Subjective: This 67 year old male presents to clinic for diabetic foot check. Patient has the following complaints: blister of right hallux. Patient admits to being diabetic for multiple years now. Patient +B/T/N in feet at this time. Patient -pain in legs when walking. No other pedal complaints atthis time. No change in medications or medical history since last visit. PAIN EVALUATION 08/15/2023 1837 Pain Level: 6 Pain Location: Foot-Right Description: Numbness;Stiffness Duration Units: Minutes Frequency: Continuous Hemoglobin A1C (%) Date Value 05/09/2023 6.3 09/29/2022 6.0 04/02/2022 6.0 11/06/2021 6.9 05/22/2021 6.4 02/16/2021 6.8 10/18/2020 7.0 06/28/2020 7.2 PCP: Cruz Prado MD 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 07/06/2018 Basal cell carcinoma 12/02/2021 BPH (benign prostatic hyperplasia) s/p removal Chronic insomnia 02/24/2019 Controlled type 2 diabetes mellitus with stage 3 chronic kidney disease, without long-term current use of insulin ([facility]) 02/24/2019 Decreased libido 01/30/2018 Degenerative retinal drusen of both eyes 05/30/2015 Diabetic eye exam (HCC) 03/18/2022 Last done 01/05/22 Non-Proliferative Diabetic Retinopathy mild [facility] (erectile dysfunction) 05/20/2021 Essential hypertension, benign 06/06/2006 Ex-smoker 05/20/2021 Started age 16, up to 2 PPD quit age 21 Gastroesophageal reflux disease with esophagitis without hemorrhage 05/20/2021 Herniated lumbar intervertebral disc History of BPH s/p removal History of depression Iron deficiency anemia 06/21/2020 Irritable bowel syndrome with both constipation and diarrhea 07/31/2021 Leg cramps 01/30/2018 Living will on file at physician's office 10/13/2022 DPA: catherine () Low testosterone in male 06/21/2020 Lumbar radiculopathy 02/24/2019 Malignant melanoma of torso excluding breast (HCC) 02/11/2020 Mixed hyperlipidemia 03/20/2013 Nuclear sclerotic cataract of both eyes 05/30/2015 Peripheral retinal degeneration, paving stone, bilateral 09/09/2017 Peripheral sensory neuropathy due to type 2 diabetes mellitus ([facility]) 08/30/2022 Posterior vitreous detachment of left eye 08/31/2016 Posterior vitreous detachment of right eye 09/09/2017 Renal cyst, right 08/10/2021 Simple, benign US 07/2021 Retinopathy 03/19/2022 Mild B/l Rotator cuff tear, left Senile nuclear sclerosis 05/17/2017 Senile nuclear sclerosis, bilateral 09/09/2017 SVT (supraventricular tachycardia) 05/20/2021 Treated with Ablation: 2013 Type 2 diabetes mellitus with retinopathy, without long-term current use of insulin (HCC) 09/09/2017 Uncontrolled type 2 diabetes mellitus with stage 3 chronic kidney disease, without long-term current use of insulin 01/30/2018 Vitreous syneresis of both eyes 05/30/2015 Well adult exam 08/23/2022 Current Outpatient Medications Medication Sig dulaglutide (TRULICITY) 1.5 mg/0.5 mL pen injector Inject 1.5 mg subcutaneously one time a week. Inject once per week. Discard Pen After baclofen 10 mg tablet Take 1 tablet by mouth three times a day as needed (muscle spasms). dicyclomine (BENTYL) 10 mg capsule Take 1 capsule by mouth before meals and at bedtime. traZODone (DESYREL) 100 mg tablet Take 1 tablet by mouth daily at bedtime. metFORMIN (GLUCOPHAGE) 1,000 mg tablet Take 1 tablet by mouth twice daily with meals. esomeprazole (NEXIUM) 40 mg capsule Take 1 capsule by mouth once daily. hydrOXYzine HCl (ATARAX) 10 mg tablet Take 1 tablet by mouth three times daily as needed for anxiety. EPINEPHrine (AUVI-Q) 0.3 mg/0.3 mL auto-injector Inject 0.3 mL intramuscularly as needed. blood sugar diagnostic (BLOOD GLUCOSE TEST) test strip Test blood sugar(s) 2 times daily. Dx: OtherDM Code E11.22 Insulin: Yes fluticasone (FLONASE) 50 mcg/actuation nasal spray Use 2 Sprays in each nostril once daily. Rinse mouth after use. pseudoephedrine (SUDAFED) 30 mg tablet Take Four 4 (30 mg) Tablets for an erection lasting more than 2 hours. If not improved in 1 hour MUST go to ER losartan (COZAAR) 100 mg tablet Take 1 tablet by mouth once daily. carvedilol (COREG) 25 mg tablet Take 1 tablet by mouth twice daily. Per Cardio, Dr. Schneider amLODIPine (NORVASC) 10 mg tablet Take 1 tablet by mouth once daily. Per Cardio, Dr. Schneider Lancets lancets Test blood sugar(s) 2 times daily. Dx: Other DM Code E11.22 Insulin: Yes docusate sodium (COLACE) 100 mg capsule Take 1 capsule by mouth twice daily as needed for Constipation. celecoxib (CELEBREX) 200 mg capsule Take 1 capsule by mouth once daily. (Patient not taking: Reported on 08/04/2023) Insulin Syringe-Needle U-100 1 mL 29 gauge x 1/2 1 Each as needed. For Intercavernal Injections (Patient not taking: Reported on 08/04/2023) No current facility-administered medications for this visit. ALLERGIES Allergen Reactions Bee Sting Anaphylaxis Amitriptyline Intolerance Did not tolerate. Tramadol Vomiting PAST SURGICAL HISTORY Procedure Laterality Date COLONOSCOPY 2011 COLONOSCOPY FLX DX W/COLLJ SPEC WHEN PFRMD 08/21/2018 repeat 5 years ESOPHAGOGASTRODUODENOSCOPY TRANSORAL DIAGNOSTIC 08/21/2018 repeat 2 years FASCT PALM W/WO Z-PLASTY TISSUE REARGMT/SKN GRFT Left 01/05/2018 A1 sánchez release ring finger HEART SURGERY HX LAPS PROSTECT RETROPUBIC RAD W/NRV SPARING ROBOT 02/02/2019 for enlarged prostate PAST SURGICAL HISTORY OF 1999 rotator cuff left PAST SURGICAL HISTORY OF 2013 ablation, SVT TONSILLECTOMY HX FAMILY HISTORY Problem Relation Age of Onset other (cancer, lung) Mother Alzheimer's Disease Father No Known Problems Sister Heart Attack Brother No Known Problems Maternal Grandmother No Known Problems Maternal Grandfather No Known Problems Paternal Grandmother No Known Problems Paternal Grandfather Social History Tobacco Use Smoking status: Former Smokeless tobacco: Never Tobacco comments: quit around 1983 Vaping Use Vaping Use: Never used Substance Use Topics Alcohol use: Yes Comment: seldom beer Drug use: No REVIEW OF SYSTEMS GENERAL: Negative for Malaise, significant weight loss, fever RESPIRATORY: Negative for cough, wheezing and shortness of breath CARDIOVASCULAR: Negative for chest pain, leg swelling and palpitations GI: Negative for abdominal discomfort, blood in stools or black stools and change in bowel habits : Negative for dysuria, frequency and incontinence MUSCULOSKELETAL: Negative for joint pain or swelling, back pain, and muscle pain. SKIN: Negative for lesions, rash, and itching. HEMATOLOGY/LYMPHOLOGY Negative for prolonged bleeding, bruising easily, and swollen nodes. ENDOCRINE: Negative for cold or heat intolerance, polyuria, polydipsia and goiter. NEURO: negative The remainder of the review of systems is noncontributory. Objective: Patient presents to clinic ambulating in [facility] Constitutional: Pt is a well developed 67 year old male who is alert, oriented, cooperative and in no apparent distress. Eyes: Following during examination. No redness or drainage. Respiratory: RR normal and nonlabored. Even breathing. No evidence of distress. Psychology: Patient is engaged during conversation. Normal affect and mood. Does not appear depressed or anxious. Vasc: DP and PT pulses are palpable bilateral. CFT is less than 5 seconds bilateral. Skin temperature is warm to warm proximal to distal bilateral. There is no edema or varicosities noted. Hair growth present. Neuro: Protective sensation is intact to the foot and toes when tested with the 5.07 SWM bilateral.Vibratory sensation is decreased at the hallux bilateral. +Significant neurological defecits. Derm: Inspection and palpation performed. Nails 1-5 b/l are normal in length and thickness. Skin isof normal turgor and texture. Hyperkeratosis noted to right hallux. No blister. NO ulcerations, scars, verruca or other lesions noted. Ortho: Ankle joint DF is full with the knee extended and full with knee flexed. No pain or crepitusnoted. STJ, MTJ ROM are full and free of pain or crepitus. Muscle strength is 5/5 for dorsiflexors,plantarflexors, inverters, everters. Digital deformities include none. Assessment: (E11.42) 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) (primary encounter diagnosis) (E11.49) Other diabetic neurological complication associated with type 2 diabetes mellitus (HCC) (L84) Callus of foot Plan: 1. Patient was seen and evaluated. 2. Patient was instructed on the continued importance of diabetic foot care along with proper diet and keeping their blood sugar under control to prevent complications. Instructions given both oral and written. 3. No blister on exam. Very small callus. This was reduced with dremmel. Will order diabetic shoes as patient will benefit from shoes given history of callus in setting of diabetic neuropathy 4. Discussed neuropathy. Could be component of both lumbar degenerative disease vs diabetic neuropathy. Saw Dr. Sherman today and is being referred to back specialist 5. F/u in 1 year Ani Linares DPM * Magda Burton LPN - 08/16/2023 1:04 PM EDT AMB ROOMING INTAKE FLOWSHEET DATA Pain Pain Level: 6 Pain Location: Foot-Right Description: Numbness, Stiffness Duration Units: Minutes Frequency: Continuous Patient presents with: Left Foot - Diabetic Foot Care, Established Patient Right Foot - Diabetic Foot Care, Established Patient, Tightness, Blister Patient is requesting new order for diabetic shoes. Magda Burton LPN documented in this encounterAvita [facility]10-[facility] History of Present illness Narrative* Asim Denis APRN.SOCIAL MEDIA MANAGER - 08/05/2023 3:57 PM EDT CC: Patient presents with: Covid19 Concern: [place], cough, fatigue x5 days, flu shot x1 day HPI: Dar Rose is a 67 year old male who presents to the office with complaint of head congestion and cough, nonproductive for a few days. Symptoms are staying the same. Associated symptoms includes headache. Denies fever, nausea, vomiting , and diarrhea. Treatments tried include nothing so far. with no relief of symptoms. Sick contacts: unknown. History of asthma, frequent episodes of bronchitis, chronic bronchitis, bronchiectasis or COPD: No Smoker: No Seasonal/environmental allergies: No The ROS is otherwise negative. The patient's pmh, medications, allergies, and past visits are reviewed. PHYSICAL EXAM: BP 125/70 Pulse 86 Temp 37.2 C (99 F) Resp 18 Wt 93.3 kg (205 lb 9.6 oz) SpO2 97% BMI 30.81 kg/m General appearance: alert, cooperative, pleasant, in no acute distress Head: Normocephalic Eyes: EOM's intact, conjunctiva pink and moist, no icterus, sclera white, non-injected Ears: Right ear: External ear/canal- Normal, TM - clear with good landmarks. Left ear: External ear/canal- Normal, TM - clear with good landmarks Oropharynx:moist without lesions, No erythema, exudates or tonsillar hypertrophy. Heart: Negative. RRR without obvious murmur, gallop, or rubs. No ectopy. Lungs: clear to auscultation, without rales or wheeze, good air exchange 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 07/06/2018 Basal cell carcinoma 12/02/2021 BPH (benign prostatic hyperplasia) s/p removal Chronic insomnia 02/24/2019 Controlled type 2 diabetes mellitus with stage 3 chronic kidney disease, without long-term current use of insulin ([facility]) 02/24/2019 Decreased libido 01/30/2018 Degenerative retinal drusen of both eyes 05/30/2015 Diabetic eye exam (HCC) 03/18/2022 Last done 01/05/22 Non-Proliferative Diabetic Retinopathy mild [facility] (erectile dysfunction) 05/20/2021 Essential hypertension, benign 06/06/2006 Ex-smoker 05/20/2021 Started age 16, up to 2 PPD quit age 21 Gastroesophageal reflux disease with esophagitis without hemorrhage 05/20/2021 Herniated lumbar intervertebral disc History of BPH s/p removal History of depression Iron deficiency anemia 06/21/2020 Irritable bowel syndrome with both constipation and diarrhea 07/31/2021 Leg cramps 01/30/2018 Living will on file at physician's office 10/13/2022 DPA: catherine () Low testosterone in male 06/21/2020 Lumbar radiculopathy 02/24/2019 Malignant melanoma of torso excluding breast (HCC) 02/11/2020 Mixed hyperlipidemia 03/20/2013 Nuclear sclerotic cataract of both eyes 05/30/2015 Peripheral retinal degeneration, paving stone, bilateral 09/09/2017 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) 08/30/2022 Posterior vitreous detachment of left eye 08/31/2016 Posterior vitreous detachment of right eye 09/09/2017 Renal cyst, right 08/10/2021 Simple, benign US 07/2021 Retinopathy 03/19/2022 Mild B/l Rotator cuff tear, left Senile nuclear sclerosis 05/17/2017 Senile nuclear sclerosis, bilateral 09/09/2017 SVT (supraventricular tachycardia) 05/20/2021 Treated with Ablation: 2013 Type 2 diabetes mellitus with retinopathy, without long-term current use of insulin (HCC) 09/09/2017 Uncontrolled type 2 diabetes mellitus with stage 3 chronic kidney disease, without long-term current use of insulin 01/30/2018 Vitreous syneresis of both eyes 05/30/2015 Well adult exam 08/23/2022 PAST SURGICAL HISTORY Procedure Laterality Date COLONOSCOPY 2011 COLONOSCOPY FLX DX W/COLLJ SPEC WHEN PFRMD 08/21/2018 repeat 5 years ESOPHAGOGASTRODUODENOSCOPY TRANSORAL DIAGNOSTIC 08/21/2018 repeat 2 years FASCT PALM W/WO Z-PLASTY TISSUE REARGMT/SKN GRFT Left 01/05/2018 A1 sánchez release ring finger HEART SURGERY HX LAPS PROSTECT RETROPUBIC RAD W/NRV SPARING ROBOT 02/02/2019 for enlarged prostate PAST SURGICAL HISTORY OF 1999 rotator cuff left PAST SURGICAL HISTORY OF 2013 ablation, SVT TONSILLECTOMY HX ALLERGIES Bee Sting, Amitriptyline, and Tramadol MEDICATIONS dulaglutide (TRULICITY) 1.5 mg/0.5 mL pen injector Inject 1.5 mg subcutaneously one time a week. Inject once per week. Discard Pen After baclofen 10 mg tablet Take 1 tablet by mouth three times a day as needed (muscle spasms). dicyclomine (BENTYL) 10 mg capsule Take 1 capsule by mouth before meals and at bedtime. celecoxib (CELEBREX) 200 mg capsule Take 1 capsule by mouth once daily. (Patient not taking: Reported on 08/04/2023) traZODone (DESYREL) 100 mg tablet Take 1 tablet by mouth daily at bedtime. metFORMIN (GLUCOPHAGE) 1,000 mg tablet Take 1 tablet by mouth twice daily with meals. esomeprazole (NEXIUM) 40 mg capsule Take 1 capsule by mouth once daily. hydrOXYzine HCl (ATARAX) 10 mg tablet Take 1 tablet by mouth three times daily as needed for anxiety. EPINEPHrine (AUVI-Q) 0.3 mg/0.3 mL auto-injector Inject 0.3 mL intramuscularly as needed. blood sugar diagnostic (BLOOD GLUCOSE TEST) test strip Test blood sugar(s) 2 times daily. Dx: OtherDM Code E11.22 Insulin: Yes fluticasone (FLONASE) 50 mcg/actuation nasal spray Use 2 Sprays in each nostril once daily. Rinse mouth after use. Insulin Syringe-Needle U-100 1 mL 29 gauge x 1/2 1 Each as needed. For Intercavernal Injections (Patient not taking: Reported on 08/04/2023) pseudoephedrine (SUDAFED) 30 mg tablet Take Four 4 (30 mg) Tablets for an erection lasting more than 2 hours. If not improved in 1 hour MUST go to ER losartan (COZAAR) 100 mg tablet Take 1 tablet by mouth once daily. carvedilol (COREG) 25 mg tablet Take 1 tablet by mouth twice daily. Per Cardio, Dr. Schneider amLODIPine (NORVASC) 10 mg tablet Take 1 tablet by mouth once daily. Per Cardio, Dr. Schneider Lancets lancets Test blood sugar(s) 2 times daily. Dx: Other DM Code E11.22 Insulin: Yes docusate sodium (COLACE) 100 mg capsule Take 1 capsule by mouth twice daily as needed for Constipation. FAMILY HISTORY Problem Relation Age of Onset other (cancer, lung) Mother Alzheimer's Disease Father No Known Problems Sister Heart Attack Brother No Known Problems Maternal Grandmother No Known Problems Maternal Grandfather No Known Problems Paternal Grandmother No Known Problems Paternal Grandfather Social History Tobacco Use Smoking status: Former Smokeless tobacco: Never Tobacco comments: quit around 1983 Vaping Use Vaping Use: Never used Substance Use Topics Alcohol use: Yes Comment: seldom beer Drug use: No ASSESSMENT/PLAN: 1. URI, acute - ICD9: 465.9, ICD10: J06.9 - COVID & INFLUENZA A/B & RSV NAAT, ROUTINE OTC medication for symptoms. Potential red flag symptoms discussed with the patient. Reviewed appropriate action plan to take if red flag symptoms occur. Patient agreeable to treatment plan. Asim Denis APRN.SOCIAL MEDIA MANAGER documented in this encounterAvita [facility]10-06-2023 Miscellaneous Notes* Telephone Encounter - Raul Domingo LPN - 08/05/2023 12:49 PM EDT Letter has been signed by provider and taken to [facility] for filler picker. Raul Domingo LPN * Telephone Encounter - Izabela Skelton RN - 08/05/2023 12:12 PM EDT Called Pt and he reports he works midnights and needs off for 08/06/23. He said he will come and pick it up from medical records. * Telephone Encounter - Anette Arreola PA-C - 08/05/2023 11:51 AM EDT Okay for 1 day excuse. Otherwise needs to return to be seen. Please clarify date. * Telephone Encounter - Cheryle Malone RN - 08/05/2023 11:33 AM EDT Patient calls and states that he is not feeling well after taking new medication as well as having flu shot from appointment yesterday. Patient asking if provider can write an excuse for him to off of work tonight (08/06/2023) since he is not feeling well after appointment? Please review and advise, and give patient a call back, Cheryle Malone RN documented in this encounterAvita [facility]10-[facility]23 History of Present illness Narrative* Anette Arreola PA-C - 08/04/2023 8:03 AM EDT Chief Complaint Patient presents with: Follow Up: Flare up of IBS HPI Dar Rose is a 67 year old male who presents here today for Above Complaints.. Patient with hx of IBS. He states over the past month, he has noticed that symptoms are worsening. He reports both diarrhea and constipation as symptoms. Some abdominal cramping. Last c-scope and EGD was 05/2022. Past medical history, appointments, medications, allergies reviewed. 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 07/06/2018 Basal cell carcinoma 12/02/2021 BPH (benign prostatic hyperplasia) s/p removal Chronic insomnia 02/24/2019 Controlled type 2 diabetes mellitus with stage 3 chronic kidney disease, without long-term current use of insulin ([facility]) 02/24/2019 Decreased libido 01/30/2018 Degenerative retinal drusen of both eyes 05/30/2015 Diabetic eye exam (HCC) 03/18/2022 Last done 01/05/22 Non-Proliferative Diabetic Retinopathy mild [facility] (erectile dysfunction) 05/20/2021 Essential hypertension, benign 06/06/2006 Ex-smoker 05/20/2021 Started age 16, up to 2 PPD quit age 21 Gastroesophageal reflux disease with esophagitis without hemorrhage 05/20/2021 Herniated lumbar intervertebral disc History of BPH s/p removal History of depression Iron deficiency anemia 06/21/2020 Irritable bowel syndrome with both constipation and diarrhea 07/31/2021 Leg cramps 01/30/2018 Living will on file at physician's office 10/13/2022 DPA: catherine () Low testosterone in male 06/21/2020 Lumbar radiculopathy 02/24/2019 Malignant melanoma of torso excluding breast (HCC) 02/11/2020 Mixed hyperlipidemia 03/20/2013 Nuclear sclerotic cataract of both eyes 05/30/2015 Peripheral retinal degeneration, paving stone, bilateral 09/09/2017 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) 08/30/2022 Posterior vitreous detachment of left eye 08/31/2016 Posterior vitreous detachment of right eye 09/09/2017 Renal cyst, right 08/10/2021 Simple, benign US 07/2021 Retinopathy 03/19/2022 Mild B/l Rotator cuff tear, left Senile nuclear sclerosis 05/17/2017 Senile nuclear sclerosis, bilateral 09/09/2017 SVT (supraventricular tachycardia) 05/20/2021 Treated with Ablation: 2013 Type 2 diabetes mellitus with retinopathy, without long-term current use of insulin (HCC) 09/09/2017 Uncontrolled type 2 diabetes mellitus with stage 3 chronic kidney disease, without long-term current use of insulin 01/30/2018 Vitreous syneresis of both eyes 05/30/2015 Well adult exam 08/23/2022 Previous Surgical History PAST SURGICAL HISTORY Procedure Laterality Date COLONOSCOPY 2011 COLONOSCOPY FLX DX W/COLLJ SPEC WHEN PFRMD 08/21/2018 repeat 5 years ESOPHAGOGASTRODUODENOSCOPY TRANSORAL DIAGNOSTIC 08/21/2018 repeat 2 years FASCT PALM W/WO Z-PLASTY TISSUE REARGMT/SKN GRFT Left 01/05/2018 A1 sánchez release ring finger HEART SURGERY HX LAPS PROSTECT RETROPUBIC RAD W/NRV SPARING ROBOT 02/02/2019 for enlarged prostate PAST SURGICAL HISTORY OF 1999 rotator cuff left PAST SURGICAL HISTORY OF 2013 ablation, SVT TONSILLECTOMY HX Family History FAMILY HISTORY Problem Relation Age of Onset other (cancer, lung) Mother Alzheimer's Disease Father No Known Problems Sister Heart Attack Brother No Known Problems Maternal Grandmother No Known Problems Maternal Grandfather No Known Problems Paternal Grandmother No Known Problems Paternal Grandfather Patient Allergies ALLERGIES Allergen Reactions Bee Sting Anaphylaxis Amitriptyline Intolerance Did not tolerate. Tramadol Vomiting Current Medications Current Outpatient Medications on File Prior to Visit Medication Sig traZODone (DESYREL) 100 mg tablet Take 1 tablet by mouth daily at bedtime. metFORMIN (GLUCOPHAGE) 1,000 mg tablet Take 1 tablet by mouth twice daily with meals. esomeprazole (NEXIUM) 40 mg capsule Take 1 capsule by mouth once daily. hydrOXYzine HCl (ATARAX) 10 mg tablet Take 1 tablet by mouth three times daily as needed for anxiety. EPINEPHrine (AUVI-Q) 0.3 mg/0.3 mL auto-injector Inject 0.3 mL intramuscularly as needed. dulaglutide (TRULICITY) 1.5 mg/0.5 mL pen injector Inject 1.5 mg subcutaneously one time a week. Inject once per week. Discard Pen After blood sugar diagnostic (BLOOD GLUCOSE TEST) test strip Test blood sugar(s) 2 times daily. Dx: OtherDM Code E11.22 Insulin: Yes cyclobenzaprine (FLEXERIL) 10 mg tablet Take 1 tablet by mouth three times daily as needed. fluticasone (FLONASE) 50 mcg/actuation nasal spray Use 2 Sprays in each nostril once daily. Rinse mouth after use. pseudoephedrine (SUDAFED) 30 mg tablet Take Four 4 (30 mg) Tablets for an erection lasting more than 2 hours. If not improved in 1 hour MUST go to ER losartan (COZAAR) 100 mg tablet Take 1 tablet by mouth once daily. carvedilol (COREG) 25 mg tablet Take 1 tablet by mouth twice daily. Per Cardio, Dr. Schneider amLODIPine (NORVASC) 10 mg tablet Take 1 tablet by mouth once daily. Per Cardio, Dr. Schneider Lancets lancets Test blood sugar(s) 2 times daily. Dx: Other DM Code E11.22 Insulin: Yes docusate sodium (COLACE) 100 mg capsule Take 1 capsule by mouth twice daily as needed for Constipation. celecoxib (CELEBREX) 200 mg capsule Take 1 capsule by mouth once daily. (Patient not taking: Reported on 08/04/2023) Insulin Syringe-Needle U-100 1 mL 29 gauge x 1/2 1 Each as needed. For Intercavernal Injections (Patient not taking: Reported on 08/04/2023) No current facility-administered medications on file prior to visit. Social History Social History Tobacco Use Smoking status: Former Smokeless tobacco: Never Tobacco comments: quit around 1983 Vaping Use Vaping Use: Never used Substance Use Topics Alcohol use: Yes Comment: seldom beer Drug use: No Review of Symptoms REVIEW OF SYSTEMS See hpi EXAM: BP 122/70 (BP Site: Left Arm, BP Position: Sitting, BP Cuff Size: Large Adult) Pulse 80 Temp 36.2 C (97.2 F) Resp 16 Wt 91.2 kg (201 lb) BMI 30.12 kg/m General Appearance: Well appearing, alert, in no acute distress, well-hydrated, well nourished.. Abdomen: Abdomen soft, non-tender. Bowel sounds normal. No masses, organomegaly. Health Maintenance List Hepatitis B Vaccine(1 of 3 - Risk 3-dose series) Never done Advance Directive Discussion due on 10/31/2022 Influenza Vaccine(1) due on 07/01/2023 Shingrix Vaccine(1 of 2) due on 10/13/2023 Covid-19 Vaccine(3 - Pfizer series) due on 10/13/2023 Urine Albumin:Creatinine Ratio due on 09/29/2023 HbA1C due on 11/09/2023 Dilated Retinal Exam due on 02/04/2024 LDL Cholesterol due on 05/09/2024 Serum Creatinine due on 05/09/2024 Hemoglobin/Hematocrit due on 05/09/2024 Diabetic Foot Exam due on 05/13/2024 Annual PCP Team Chronic Disease Visit due on 05/13/2024 BP Controlled (<130/80) due on 05/13/2024 DTaP,Tdap,Td Vaccine(2 - Td or Tdap) due on 03/13/2027 Colorectal Cancer Screening due on 06/01/2027 Abdominal Aortic Aneurysm Screening Completed Depression Assessment Completed Hepatitis C Screening Completed Pneumococcal Vaccine: 65+ Completed HPV Vaccine Aged Out Data reviewed ASSESSMENT/PLAN: 1. Irritable bowel syndrome with both constipation and diarrhea - ICD9: 564.1, ICD10: K58.2 (primary diagnosis) Discussed gastro consult. Patient declines. Will trial addition of bentyl and follow up in 1 month. 2. Encounter for immunization - ICD9: V03.89, ICD10: Z23 - INFLUENZA VACCINE, PRSV FREE, AGE 65+ YR, HIGH DOSE, QUADRIVALENT (FLUZONE HIGH-DOSE) Anette Arreola PA-C documented in this encounterCleveland [id number] Miscellaneous Notes* Telephone Encounter - Cruz Prado MD - 05/19/2023 11:06 AM EDT The following approved medication requests have been transmitted electronically. Requested Prescriptions Signed Prescriptions Disp Refills celecoxib (CELEBREX) 200 mg capsule 90 capsule 1 Sig: Take 1 capsule by mouth once daily. Authorizing Provider: CRUZ PRADO MD * Telephone Encounter - Delicia William RN - 05/19/2023 10:30 AM EDT Monica from [facility] mail order pharmacy calling and states they need a 3 month supply with refills inorder for the patient to do the mail order. documented in this encounterAvita [facility]04-26-2023 History of Present illness Narrative* Jannet Rock, PT - 02/23/2023 10:07 AM EDT Episode Visit Count: 3 Therapist That Will Accept/Oversee The Plan Of Care: Tanya Amlazan Start of Care Date: 01/10/23 Onset Date: 10/31/22 Plan of Care Certification Date: 02/15/23 Next Certification Due Date: 03/30/23 Patient Identified by Name and Date of : Yes REHABILIT[facility] AND SPORTS THERAPY PHYSICAL THERAPY TREATMENT NOTE ASSESSMENT: Dar Rose tolerated the session with no issues. He demonstrated difficulty with form with I-T band. Pt with complaint of some sx which appears to be lumbar related with radicular sxbut also thigh , hip and knee sx with cramping in legs. Will continue to modify exs as deemed appropriate The patient will continue to benefit from ongoing skilled physical therapy to progress towardset goals. PLAN FOR NEXT VISIT: Consider more core strengthening Transfer of Care Due To: ([facility]) Patient transferring care to: Amy Almazan SUBJECTIVE: Patient Reason for Visit: Pt notes that he tries to do the exs at work while sitting. .then does exs at night. Last night right thigh and knee hurting/ throbbing. 90% of pain is with lying down. Still feels weakness in legs. reports cramps in lower legs and hamstrings at times Spine History Pain is Better Always: Walking Sleeping Position: Side lying left (symptoms always better lying on back) Spine History - Cervical Sleeping Position: Side lying left (symptoms always better lying on back) Pain: Pain Pain Level: 0 Pain Location: Thigh - Right, Knee - Right, Knee - Left, Hip - Right Description: Aching, Throbbing Frequency: Intermittent Post Treatment Pain Post Treatment Pain Level: No Change OBJECTIVE MEASURES WITH LEVEL OF FUNCTION: LE Flexibility Flexibility: Quadriceps Flexibility R Quadriceps Flexibility: 130 L Quadriceps Flexibility: 120 TREATMENT: Therapeutic Exercise: 1: prone quad stretch therapist assisted 30 sec x3 B 2: standing hip abduction 2x15 right 3: standing I-T band stretch right cues for form 30 sec hold x3 4: purple rep band trunk flexion 2x10, pt reports that he has not been doing to much of these 5: sit to stand from chair 1x10, pt remarks that he has not performed this ex to much 6: SKC supine 1x10 ( pt to perform before going to sleep) 7: prone leg lifts 1x10 B Skilled Intervention: Patient was educated in proper exercise technique and purpose for exercises. Reviewed and educated patient on additions/changes for home exercise program . Skilled judgment was provided in selection of appropriate interventions. Provided written instruction for home exercise program to facilitate proper performance and compliance. Correct performance of therapeutic exercises was facilitated with verbal and visual cuing. Patient education as noted. Home Ex program: add prone leg lifts Billing Therapeutic Exercise Treatment Minutes: 38 Total Treatment Time Minutes (timed/untimed): 38 Jannet Rock PT [facility] of Present illness Narrative* Jannet Rock PT - 02/16/2023 11:07 AM EDT Episode Visit Count: 2 Therapist That Will Accept/Oversee The Plan Of Care: Jannet Rock PT Start of Care Date: 01/10/23 Onset Date: 10/31/22 Plan of Care Certification Date: 02/15/23 Next Certification Due Date: 03/30/23 Patient Identified by Name and Date of : Yes REHABILITATION AND SPORTS THERAPY PHYSICAL THERAPY PROGRESS REPORT PLAN OF CARE UPDATE: Assessment: Dar Rose demonstrates minimal improvement in pain , rising from a chair, and physical activities. He has progressed toward goals. Patient continues to present with impairments in independence in exercise, strength, and symptom management that interfere with ADL's sleeping . Current prognosis is Fair due to: chronic nature of impairments , and poor compliance with PT visits . Hewill benefit from continued skilled therapy services to meet the updated goals for this plan of care as noted below. Goals for Episode of Care: created on 01/10/23 through 02/22/23 updated 02/16/23 Pierce in home exercise program. partially achieved Patient will decrease pain to 2/10 with functional activities to allow patient to improve ambulation./ progressing Patient will demonstrate increase in core and hip strength to 4+/5 during manual muscle testing in order to improve function for prior functional tasks./ progressing Patient will increase flexibility of I-T band and piriformis to equal unaffected extremity/side to improve mechanics and decrease pain./ progressing Perform transfers from sitting to walking with decreased report of symptoms/pain in 4 weeks./ partially achieved Patient Goals: get rid of some of this pain./ partially achieved Planned Interventions, Frequency, and Duration: 1x/week, 4 weeks Total Number of Visits Planned: 4 Patient to be seen for Therapeutic exercise (01640), Neuromuscular re-education (65506), Manual therapy (13646), Self-residential management (69861), Patient/Family/Caregiver Education, 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 States that most of pain is in knees now throbbing at night with lying on side. Knee pain with sitting and worst with lying down in bed. Less with standing and walking. States that he gets some relief with doing SKC ex when painful sleeping .. Pain: Pain Pain Level: 1 Pain Location: Thigh - Right, Knee - Right, Knee - Left, Hip - Right Description: Aching, Throbbing Frequency: Intermittent Post Treatment Pain Post Treatment Pain Location: Hip - Right Post Treatment Pain Description: Aching Post Treatment Symptoms: no sx in knees currently PROMIS Scales T-scores: mean of general population = 50. 5 points is clinically meaningfully difference Percentiles provide an indication of how the patient's score ranks in relation to the general population. Higher percentile rankings indicate better function/quality of life. 50th percentile is the average of the general population and indicates half of respondents had a worse score. OBJECTIVE MEASURES WITH LEVEL OF FUNCTION: Hip Observations R Hip Palpation Tenderness: (no knee tenderness to palpation) Knee Observations R Knee Palpation Tenderness: No tenderness noted L Knee Palpation Tenderness: No tenderness noted LE AROM R Knee Extension: 0 Degrees R Knee Flexion: 140 Degrees L Knee Extension: 0 Degrees L Knee Flexion: 140 Degrees LE Flexibility Flexibility: Hamstring Flexibility R Hamstring Flexibility: 60 L Hamstring Flexibility: 50 R IT Band Flexibility: mild tightness without pain LE Joint Mobility R Patellar Mobility: WNL LE Strength R Knee Extension (L3): 5/5 R Knee Flexion: 5/5 L Knee Extension (L3): 5/5 L Knee Flexion: 5/5 TREATMENT: Therapeutic Exercise: 1: seated green rep band hip abduction seated 3x12 2: standing hip abduction 2x10 right 3: standing I-T band stretch right with many cues for form 15 sec hold x3 4: purple rep band trunk flexion 2x10 5: sit to stand from chair 1x10 6: SKC supine 1x10 ( pt to perform before going to sleep) Skilled Intervention: Patient was educated in proper exercise technique and purpose for exercises. Reviewed and educated patient on additions/changes for home exercise program . Skilled judgment was provided in selection of appropriate interventions. Provided written instruction for home exercise program to facilitate proper performance and compliance. Correct performance of therapeutic exercises was facilitated with verbal and visual cuing. Patient education as noted. Home Exercise Program Assigned: 1: purple rep band trunk flexion 2x10 2: SKC supine 1x10 ( pt to perform before going to sleep) 3: sit to stand from chair 1x10 Billing Therapeutic Exercise Treatment Minutes: 40 Total Treatment Time Minutes (timed/untimed): 40 Jannet Rock PT [facility] Miscellaneous Notes* Telephone Encounter - Anitra Hyde LPN - 02/01/2023 8:25 AM EDT Rx for glucose test strips was sent to [facility] 01/26/23, Nataly from pharm asking if rx can be for 200 strips rather than 100? It will be cheaper for pt. Pending. Anitra Hyde LPN documented in this encounterAv[facility]30[facility] Miscellaneous Notes* Telephone Encounter - Anitra Hyde LPN - 01/27/2023 8:26 AM EDT Pt was notified of results & voiced understanding. Anitra Hyde LPN * Telephone Encounter - Cruz Prado MD - 01/26/2023 8:13 PM EDT Let patient know hip x-rays showed mild arthritis in the right hip and right sacroiliac joint. Lefthip and sacroiliac joint were ok. documented in this encounterAv[facility] Miscellaneous Notes* Telephone Encounter - Cruz Prado MD - 01/26/2023 7:16 PM EDT The following approved medication requests have been transmitted electronically. Requested Prescriptions Signed Prescriptions Disp Refills traZODone (DESYREL) 100 mg tablet 90 tablet 1 Sig: Take 1 tablet by mouth daily at bedtime. Authorizing Provider: CRUZ PRADO metFORMIN (GLUCOPHAGE) 1,000 mg tablet 180 tablet 1 Sig: Take 1 tablet by mouth twice daily with meals. Authorizing Provider: CRUZ PRADO esomeprazole (NEXIUM) 40 mg capsule 90 capsule 1 Sig: Take 1 capsule by mouth once daily. Authorizing Provider: CRUZ PRADO blood sugar diagnostic (BLOOD GLUCOSE TEST) test strip 100 Strip 11 Sig: Test blood sugar(s) 2 times daily. Dx: Other DM Code E11.22 Insulin: Yes Authorizing Provider: CRUZ PRADO hydrOXYzine HCl (ATARAX) 10 mg tablet 270 tablet 1 Sig: Take 1 tablet by mouth three times daily as needed for anxiety. Authorizing Provider: CRUZ PRADO MD * Telephone Encounter - Milind Denis MA - 01/26/2023 2:43 PM EDT Patient was sent to Office back line. Patient indicated that his medication were to go to the [facility]. Only need the prednisone and celebrex to local. Milind Denis MA documented in this encounterAv[facility] History of Present illness Narrative* Aurora Ward RT(R) - 01/21/2023 10:20 AM EDT Radiology Service Progress Note PATIENT NAME: Dar Rose DATE OF SERVICE: January 21, 2023 TIME: 10:13 AM PATIENT IDENTITY VERIFICATION COMPLETED USING TWO (2) IDENTIFIERS: Name and Date of confirmedby patient verbally. FALL SCREENING: Has the patient had 2 falls in the last year or 1 fall with injury or currently using an Ambulatory Assistive Device (Walker, Cane, Wheelchair, Crutches, etc.)? No PATIENT GENDER DATA: Male PATIENT RELEVANT IMPLANT DATA REVIEWED: Not Applicable RADIOLOGY DEPARTMENT: General X-ray: Exam(s) Completed: Pelvis X-Ray: Pelvis with Hip Bilateral PERIPHERAL IV DATA: Not applicable SIGNED BY: RT Karyn(R) January 21, 2023 10:13 AM documented in this encounterAv[facility] History of Present illness Narrative* Jannet Rock PT - 01/11/2023 8:04 AM EDT Episode Visit Count: 1 Therapist That Will Accept/Oversee The Plan Of Care: Jannet Rock PT Start of Care Date: 01/10/23 Onset Date: 10/31/22 Plan of Care Certification Date: 01/10/23 Next Certification Due Date: 02/22/23 Patient Identified by Name and Date of : Yes REHABILITATION AND SPORTS THERAPY PHYSICAL THERAPY EVALUATION PLAN OF CARE: Assessment: Dar Rose presents with chief complaint of pain in lateral right hip that interferes with walking in the community, stair negotiation, lifting, physical activities . He presents with impairments in ADL's, flexibility, gait, independence in exercise, overall function, and strength. Patient did not complete the PROMIS (Patient Reported Outcome Measures Information System). Prognosis for therapy is Fair due to: chronic nature of impairments . He will benefit from skilled therapy services to meet the goals established for this plan of care as noted below. Goals for Episode of Care: created on 01/10/23 through 02/22/23 Pierce in home exercise program. Patient will decrease pain to 2/10 with functional activities to allow patient to improve ambulation. Patient will demonstrate increase in core and hip strength to 4+/5 during manual muscle testing in order to improve function for prior functional tasks. Patient will increase flexibility of I-T band and piriformis to equal unaffected extremity/side to improve mechanics and decrease pain. Perform transfers from sitting to walking with decreased report of symptoms/pain in 4 weeks. Patient Goals: get rid of some of this pain. Planned Interventions, Frequency, and Duration: Current Frequency: 2x/week Duration: 4 weeks Total Number of Visits Planned: 8 Planned Treatment Interventions: Therapeutic exercise (62067), Neuromuscular re- education (13091), Manual therapy (17849), Self-residential management (08420), Patient/Family/Caregiver Education PLAN FOR NEXT VISIT: Will add scifit stepper, core stabilization exs, foam roller to I-T band Patient demonstrates good understanding of plan of care and treatment. The above goals and plan of care were discussed and agreed upon by patient/family. SUBJECTIVE: Dar Rose is a 67 year old male seen today for Pain in the lateral aspect of hip on the right goes down to knee . Increaesd pain in that area when getting up after sitting for longer periods of time. Has leg cramps in both leg in calf regions and sometimes in quad area. neuropathyis present in context of diabetes. Patient Goals: get rid of some of this pain. 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 Home Environment Patient Lives With: Spouse Intake Information: Prescription present Previous Treatment: Topicals, NSAIDs Red Flags Vertebral Fracture Clinical Reasoning: No identified risk factors Cauda Equina Syndrome Clinical Reasoning: No identified risk factors. Spine History Symptoms Location at Onset: Thigh Pain is Worse Always: (getting up after sitting) Sleeping Position: Side lying left Pain: Pain Pain Level: 4 Pain Location: Hip - Right, Thigh - Right Description: Aching, Sharp Frequency: Intermittent Post Treatment Pain Post Treatment Pain Level: Worse Post Treatment Pain Location: Hip - Right Post Treatment Pain Description: Aching PROMIS Scales T-scores: mean of general population = 50. 5 points is clinically meaningfully difference Percentiles provide an indication of how the patient's score ranks in relation to the general population. Higher percentile rankings indicate better function/quality of life. 50th percentile is the average of the general population and indicates half of respondents had a worse score. OBJECTIVE MEASURES WITH LEVEL OF FUNCTION: Posture / Alignment Sitting Posture: Fair Effects of Posture Correction: no change Hip Observations R Hip Palpation Tenderness: Greater trochanter, Trochanteric bursa, Iliotibial band Lumbar Spine AROM Lumbar Flexion: Normal Lumbar Extension: Minimal limitation Lumbar R Side-Bend: Normal Lumbar L Side-Bend: Normal LE Flexibility Flexibility: IT Band Flexibility, Piriformis Flexibility R IT Band Flexibility: moderate tightness and tenderness R Piriformis Flexibility: mild tightness L Piriformis Flexibility: WNL LE Strength Trunk Strength: 4-/5 R Hip Flexion (L2): 5/5 R Hip ABduction: 4/5 (with pain) R Hip Internal Rotation: 5/5 (wtih pain) R Hip External Rotation: 5/5 R Knee Extension (L3): 5/5 R Knee Flexion: 5/5 Functional Strength Functional Strength: difficulty with stairs, walking after sitting for awhile Gait Weight Bearing Status: FWB Gait: Independent Gait Observation: no deviations noted today Education: Education Learning Preferences: Demonstration, Explanation, Performance, Printed Materials Barriers: None Learning/educational needs: Home exercise program, Plan of Care Education Provided: Yes, see treatment interventions for education provided Education Provided To: Patient Education Mode/Type: Demonstration, Explanation/Discussion, Literature/Printed Materials, Performance Response to Education/Teach Back: States/Identifies, Return Demonstration TREATMENT: PT Treatment Interventions: Therapeutic Exercise Evaluation Therapeutic Exercise: 1: seated green rep band hip abduction seated 2x10 2: standing hip abduction 2x10 right 3: standing I-T band stretch wtih cues required for proper form with this exercise Skilled Intervention: Patient was educated in proper exercise technique and purpose for exercises. Skilled judgment was provided in selection of appropriate interventions. Correct performance of therapeutic exercises was facilitated with verbal and visual cuing. Additional time necessary for cues and instruction in proper form due to difficulty with standing I-T band stretch . Educated patient on rationale for performing exercises in regards to ROM and function . Patient education as noted. Home Exercise Program Assigned: 1: as outlined above Billing * Evaluation Low Complexity: 1 Unit Therapeutic Exercise Treatment Minutes: 25 Total Treatment Time Minutes (timed/untimed): 40 Jannet Rock PT documented in this encounterAv[facility] History of Past illness Narrative* Problem Noted Date Diagnosed Date Resolved Date Greater trochanteric bursitis of both hips 01/10/2023 04/01/2023 Acute midline low back pain without sciatica 04/01/2023 Muscle weakness of lower extremity 01/10/2023 04/01/2023 Hematuria 12/15/2018 12/16/2018 Uncontrolled type 2 diabetes mellitus with stage 3 chronic kidney disease, without long-term current use of insulin 01/30/2018 019 Dupuytren contracture 08/25/20172017 Trigger middle finger of right hand 08/25/2017 08/17/2018 Trigger ring finger of left hand 08/25/2017 08/17/2018 Matthew's esophagus 04/01/2016 08/28/20 18 Overview: EGD 04/01/2016 Other chronic allergic conjunctivitis 05/30/2015 08/17/2018 Health maintenance examination 09/29/2011 02/15/2013 documented as of this encounter (statuses as of 05/19/2023) [facility] of Past illness Narrative* Problem Noted Date Diagnosed Date Resolved Date Greater trochanteric bursitis of both hips 01/10/2023 04/01/2023 Acute midline low back pain without sciatica 3 04/01/2023 Muscle weakness of lower extremity 01/10/2023 04/01/2023 Hematuria 12/15/2018 12/16/2018 Uncontrolled type 2 diabetes mellitus with stage 3 chronic kidney disease, without long-term current use of insulin 01/30/2018 019 Dupuytren contracture 08/25/20172017 Trigger middle finger of right hand 08/25/2017 08/17/2018 Trigger ring finger of left hand 08/25/2017 08/17/2018 Matthew's esophagus 04/01/2016 08/28/20 Overview: EGD 04/01/2016 Other chronic allergic conjunctivitis 05/30/2015 08/17/2018 Health maintenance examination 09/29/2011 02/15/2013 documented as of this encounter (statuses as of 08/05/2023) [facility] of Past illness Narrative* Problem Noted Date Diagnosed Date Resolved Date Greater trochanteric bursitis of both hips 01/10/2023 04/01/2023 Acute midline low back pain without sciatica 3 04/01/2023 Muscle weakness of lower extremity 01/10/2023 04/01/2023 Hematuria 12/15/2018 12/16/2018 Uncontrolled type 2 diabetes mellitus with stage 3 chronic kidney disease, without long-term current use of insulin 01/30/2018 019 Dupuytren contracture 08/25/20172017 Trigger middle finger of right hand 08/25/2017 08/17/2018 Trigger ring finger of left hand 08/25/2017 08/17/2018 Matthew's esophagus 04/01/2016 08/28/20 Overview: EGD 04/01/2016 Other chronic allergic conjunctivitis 05/30/2015 08/17/2018 Health maintenance examination 09/29/2011 02/15/2013 documented as of this encounter (statuses as of 08/06/2023) [facility] of Past illness Narrative* Problem Noted Date Diagnosed Date Resolved Date Greater trochanteric bursitis of both hips 01/10/2023 04/01/2023 Acute midline low back pain without sciatica 3 04/01/2023 Muscle weakness of lower extremity 01/10/2023 04/01/2023 Hematuria 12/15/2018 12/16/2018 Uncontrolled type 2 diabetes mellitus with stage 3 chronic kidney disease, without long-term current use of insulin 01/30/2018 019 Dupuytren contracture 08/25/20172017 Trigger middle finger of right hand 08/25/2017 08/17/2018 Trigger ring finger of left hand 08/25/2017 08/17/2018 Matthew's esophagus 04/01/2016 08/28/20 Overview: EGD 04/01/2016 Other chronic allergic conjunctivitis 05/30/2015 08/17/2018 Health maintenance examination 09/29/2011 02/15/2013 documented as of this encounter (statuses as of 08/06/2023) [facility] of Past illness Narrative* Problem Noted Date Diagnosed Date Resolved Date Greater trochanteric bursitis of both hips 01/10/2023 04/01/2023 Acute midline low back pain without sciatica 3 04/01/2023 Muscle weakness of lower extremity 01/10/2023 04/01/2023 Hematuria 12/15/2018 12/16/2018 Uncontrolled type 2 diabetes mellitus with stage 3 chronic kidney disease, without long-term current use of insulin 01/30/2018 019 Dupuytren contracture 08/25/20172017 Trigger middle finger of right hand 08/25/2017 08/17/2018 Trigger ring finger of left hand 08/25/2017 08/17/2018 Matthew's esophagus 04/01/2016 08/28/20 Overview: EGD 04/01/2016 Other chronic allergic conjunctivitis 05/30/2015 08/17/2018 Health maintenance examination 09/29/2011 02/15/2013 documented as of this encounter (statuses as of 08/16/2023) [facility] of Past illness Narrative* Problem Noted Date Diagnosed Date Resolved Date Greater trochanteric bursitis of both hips 01/10/2023 04/01/2023 Acute midline low back pain without sciatica 3 04/01/2023 Muscle weakness of lower extremity 01/10/2023 04/01/2023 Hematuria 12/15/2018 12/16/2018 Uncontrolled type 2 diabetes mellitus with stage 3 chronic kidney disease, without long-term current use of insulin 01/30/2018 019 Dupuytren contracture 08/25/20172017 Trigger middle finger of right hand 08/25/2017 08/17/2018 Trigger ring finger of left hand 08/25/2017 08/17/2018 Matthew's esophagus 04/01/2016 08/28/20 Overview: EGD 04/01/2016 Other chronic allergic conjunctivitis 05/30/2015 08/17/2018 Health maintenance examination 09/29/2011 02/15/2013 documented as of this encounter (statuses as of 08/19/2023) [facility] of Past illness Narrative* Problem Noted Date Diagnosed Date Resolved Date Greater trochanteric bursitis of both hips 01/10/2023 04/01/2023 Acute midline low back pain without sciatica 3 04/01/2023 Muscle weakness of lower extremity 01/10/2023 04/01/2023 Hematuria 12/15/2018 12/16/2018 Uncontrolled type 2 diabetes mellitus with stage 3 chronic kidney disease, without long-term current use of insulin 01/30/2018 019 Dupuytren contracture 08/25/20172017 Trigger middle finger of right hand 08/25/2017 08/17/2018 Trigger ring finger of left hand 08/25/2017 08/17/2018 Matthew's esophagus 04/01/2016 08/28/20 Overview: EGD 04/01/2016 Other chronic allergic conjunctivitis 05/30/2015 08/17/2018 Health maintenance examination 09/29/2011 02/15/2013 documented as of this encounter (statuses as of 08/23/2023) [facility] of Past illness Narrative* Problem Noted Date Diagnosed Date Resolved Date Greater trochanteric bursitis of both hips 01/10/2023 04/01/2023 Acute midline low back pain without sciatica 3 04/01/2023 Muscle weakness of lower extremity 01/10/2023 04/01/2023 Hematuria 12/15/2018 12/16/2018 Uncontrolled type 2 diabetes mellitus with stage 3 chronic kidney disease, without long-term current use of insulin 01/30/2018 019 Dupuytren contracture 08/25/20172017 Trigger middle finger of right hand 08/25/2017 08/17/2018 Trigger ring finger of left hand 08/25/2017 08/17/2018 Matthew's esophagus 04/01/2016 08/28/20 Overview: EGD 04/01/2016 Other chronic allergic conjunctivitis 05/30/2015 08/17/2018 Health maintenance examination 09/29/2011 02/15/2013 documented as of this encounter (statuses as of 08/26/2023) [facility] of [facility] illness Narrative* Problem Noted Date Diagnosed Date Resolved Date Greater trochanteric bursitis of both hips 01/10/2023 04/01/2023 Acute midline low back pain without sciatica 3 04/01/2023 Muscle weakness of lower extremity 01/10/2023 04/01/2023 Hematuria 12/15/2018 12/16/2018 Uncontrolled type 2 diabetes mellitus with stage 3 chronic kidney disease, without long-term current use of insulin 01/30/2018 019 Dupuytren contracture 08/25/20172017 Trigger middle finger of right hand 08/25/2017 08/17/2018 Trigger ring finger of left hand 08/25/2017 08/17/2018 Matthew's esophagus 04/01/2016 08/28/20 Overview: EGD 04/01/2016 Other chronic allergic conjunctivitis 05/30/2015 08/17/2018 Health maintenance examination 09/29/2011 02/15/2013 documented as of this encounter (statuses as of 09/14/2023) [facility]03-13[facility]23 History of Past illness Narrative* Problem Noted Date Diagnosed Date Resolved Date Greater trochanteric bursitis of both hips 01/10/2023 04/01/2023 Acute midline low back pain without sciatica 04/01/2023 Muscle weakness of lower extremity 01/10/2023 04/01/2023 Hematuria 12/15/2018 12/16/2018 Uncontrolled type 2 diabetes mellitus with stage 3 chronic kidney disease, without long-term current use of insulin 01/30/2018 019 Dupuytren contracture 08/25/20172017 Trigger middle finger of right hand 08/25/2017 08/17/2018 Trigger ring finger of left hand 08/25/2017 08/17/2018 Matthew's esophagus 04/01/2016 08/28/20 Overview: EGD 04/01/2016 Other chronic allergic conjunctivitis 05/30/2015 08/17/2018 Health maintenance examination 09/29/2011 02/15/2013 documented as of this encounter (statuses as of 09/27/2023) [facility] History of Past illness Narrative* Problem Noted Date Diagnosed Date Resolved Date Greater trochanteric bursitis of both hips 01/10/2023 04/01/2023 Acute midline low back pain without sciatica 04/01/2023 Muscle weakness of lower extremity 01/10/2023 04/01/2023 Hematuria 12/15/2018 12/16/2018 Uncontrolled type 2 diabetes mellitus with stage 3 chronic kidney disease, without long-term current use of insulin 01/30/2018 019 Dupuytren contracture 08/25/20172017 Trigger middle finger of right hand 08/25/2017 08/17/2018 Trigger ring finger of left hand 08/25/2017 08/17/2018 Matthew's esophagus 04/01/2016 08/28/20 Overview: EGD 04/01/2016 Other chronic allergic conjunctivitis 05/30/2015 08/17/2018 Health maintenance examination 09/29/2011 02/15/2013 documented as of this encounter (statuses as of 09/27/2023) [facility] History of Past illness Narrative* Problem Noted Date Diagnosed Date Resolved Date Greater trochanteric bursitis of both hips 01/10/2023 04/01/2023 Acute midline low back pain without sciatica 3 04/01/2023 Muscle weakness of lower extremity 01/10/2023 04/01/2023 Hematuria 12/15/2018 12/16/2018 Uncontrolled type 2 diabetes mellitus with stage 3 chronic kidney disease, without long-term current use of insulin 01/30/2018 019 Dupuytren contracture 08/25/20172017 Trigger middle finger of right hand 08/25/2017 08/17/2018 Trigger ring finger of left hand 08/25/2017 08/17/2018 Matthew's esophagus 04/01/2016 08/28/20 Overview: EGD 04/01/2016 Other chronic allergic conjunctivitis 05/30/2015 08/17/2018 Health maintenance examination 09/29/2011 02/15/2013 documented as of this encounter (statuses as of 09/28/2023) [facility] History of Past illness Narrative* Problem Noted Date Diagnosed Date Resolved Date Greater trochanteric bursitis of both hips 01/10/2023 04/01/2023 Acute midline low back pain without sciatica 3 04/01/2023 Muscle weakness of lower extremity 01/10/2023 04/01/2023 Hematuria 12/15/2018 12/16/2018 Uncontrolled type 2 diabetes mellitus with stage 3 chronic kidney disease, without long-term current use of insulin 01/30/2018 019 Dupuytren contracture 08/25/20172017 Trigger middle finger of right hand 08/25/2017 08/17/2018 Trigger ring finger of left hand 08/25/2017 08/17/2018 Matthew's esophagus 04/01/2016 08/28/20 Overview: EGD 04/01/2016 Other chronic allergic conjunctivitis 05/30/2015 08/17/2018 Health maintenance examination 09/29/2011 02/15/2013 documented as of this encounter (statuses as of 09/28/2023) [facility] History of Past illness Narrative* Problem Noted Date Diagnosed Date Resolved Date Greater trochanteric bursitis of both hips 01/10/2023 04/01/2023 Acute midline low back pain without sciatica 3 04/01/2023 Muscle weakness of lower extremity 01/10/2023 04/01/2023 Hematuria 12/15/2018 12/16/2018 Uncontrolled type 2 diabetes mellitus with stage 3 chronic kidney disease, without long-term current use of insulin 01/30/2018 019 Dupuytren contracture 08/25/20172017 Trigger middle finger of right hand 08/25/2017 08/17/2018 Trigger ring finger of left hand 08/25/2017 08/17/2018 Matthew's esophagus 04/01/2016 08/28/20 Overview: EGD 04/01/2016 Other chronic allergic conjunctivitis 05/30/2015 08/17/2018 Health maintenance examination 09/29/2011 02/15/2013 documented as of this encounter (statuses as of 12/21/2023) [facility] History of Past illness Narrative* Problem Noted Date Diagnosed Date Resolved Date Greater trochanteric bursitis of both hips 01/10/2023 04/01/2023 Acute midline low back pain without sciatica 3 04/01/2023 Muscle weakness of lower extremity 01/10/2023 04/01/2023 Hematuria 12/15/2018 12/16/2018 Uncontrolled type 2 diabetes mellitus with stage 3 chronic kidney disease, without long-term current use of insulin 01/30/2018 019 Dupuytren contracture 08/25/20172017 Trigger middle finger of right hand 08/25/2017 08/17/2018 Trigger ring finger of left hand 08/25/2017 08/17/2018 Matthew's esophagus 04/01/2016 08/28/20 Overview: EGD 04/01/2016 Other chronic allergic conjunctivitis 05/30/2015 08/17/2018 Health maintenance examination 09/29/2011 02/15/2013 documented as of this encounter (statuses as of 01/03/2024) [facility] History of Past illness Narrative* Problem Noted Date Diagnosed Date Resolved Date Greater trochanteric bursitis of both hips 01/10/2023 04/01/2023 Acute midline low back pain without sciatica 04/01/2023 Muscle weakness of lower extremity 01/10/2023 04/01/2023 Hematuria 12/15/2018 12/16/2018 Uncontrolled type 2 diabetes mellitus with stage 3 chronic kidney disease, without long-term current use of insulin 01/30/2018 019 Dupuytren contracture 08/25/20172017 Trigger middle finger of right hand 08/25/2017 08/17/2018 Trigger ring finger of left hand 08/25/2017 08/17/2018 Matthew's esophagus 04/01/2016 08/28/20 Overview: EGD 04/01/2016 Other chronic allergic conjunctivitis 05/30/2015 08/17/2018 Health maintenance examination 09/29/2011 02/15/2013 documented as of this encounter (statuses as of 02/01/2024) [facility] History of Present illness Narrative* EDY Ta - 01/08/2023 12:08 PM EST This note was created using NoteWriter. Subjective Dar Rose is a 67 year old male. HPI 67-year-old male presents for left eye redness and irritation x4 days. Patient had left eye redness for the past 4 days. He states that it feels irritated and itchy. No drainage from the eye. Somebody at his work recently had pinkeye. He denies any fevers or chills. No cough or URI symptoms. Novision changes. No pain in the eye. 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 07/06/2018 Basal cell carcinoma 12/02/2021 BPH (benign prostatic hyperplasia) s/p removal Chronic insomnia 02/24/2019 Controlled type 2 diabetes mellitus with stage 3 chronic kidney disease, without long-term current use of insulin ([facility]) 02/24/2019 Decreased libido 01/30/2018 Degenerative retinal drusen of both eyes 05/30/2015 Diabetic eye exam ([facility]) 03/18/2022 Last done 01/05/22 Non-Proliferative Diabetic Retinopathy mild [facility] (erectile dysfunction) 05/20/2021 Essential hypertension, benign 06/06/2006 Ex-smoker 05/20/2021 Started age 16, up to 2 PPD quit age 21 Gastroesophageal reflux disease with esophagitis without hemorrhage 05/20/2021 Herniated lumbar intervertebral disc History of BPH s/p removal History of depression Iron deficiency anemia 06/21/2020 Irritable bowel syndrome with both constipation and diarrhea 07/31/2021 Leg cramps 01/30/2018 Living will on file at physician's office 10/13/2022 DPA: catherine () Low testosterone in male 06/21/2020 Lumbar radiculopathy 02/24/2019 Malignant melanoma of torso excluding breast ([facility]) 02/11/2020 Mixed hyperlipidemia 03/20/2013 Nuclear sclerotic cataract of both eyes 05/30/2015 Peripheral retinal degeneration, paving stone, bilateral 09/09/2017 Peripheral sensory neuropathy due to type 2 diabetes mellitus ([facility]) 08/30/2022 Posterior vitreous detachment of left eye 08/31/2016 Posterior vitreous detachment of right eye 09/09/2017 Renal cyst, right 08/10/2021 Simple, benign US 07/2021 Retinopathy 03/19/2022 Mild B/l Rotator cuff tear, left Senile nuclear sclerosis 05/17/2017 Senile nuclear sclerosis, bilateral 09/09/2017 SVT (supraventricular tachycardia) ([facility]) 05/20/2021 Treated with Ablation: 2013 Type 2 diabetes mellitus with retinopathy, without long-term current use of insulin ([facility]) 09/09/2017 Uncontrolled type 2 diabetes mellitus with stage 3 chronic kidney disease, without long-term current use of insulin 01/30/2018 Vitreous syneresis of both eyes 05/30/2015 Well adult exam 08/23/2022 PAST SURGICAL HISTORY Procedure Laterality Date COLONOSCOPY 2011 COLONOSCOPY FLX DX W/COLLJ SPEC WHEN PFRMD 08/21/2018 repeat 5 years ESOPHAGOGASTRODUODENOSCOPY TRANSORAL DIAGNOSTIC 08/21/2018 repeat 2 years FASCT PALM W/WO Z-PLASTY TISSUE REARGMT/SKN GRFT Left 01/05/2018 A1 sánchez release ring finger HEART SURGERY HX LAPS PROSTECT RETROPUBIC RAD W/NRV SPARING ROBOT 02/02/2019 for enlarged prostate PAST SURGICAL HISTORY OF 1999 rotator cuff left PAST SURGICAL HISTORY OF 2013 ablation, SVT TONSILLECTOMY HX ALLERGIES Bee Sting, Amitriptyline, and Tramadol MEDICATIONS fluticasone (FLONASE) 50 mcg/actuation nasal spray Use 2 Sprays in each nostril once daily. Rinse mouth after use. predniSONE (DELTASONE) 10 mg tablet Take 6 tabs by mouth for 3 days then 4 tabs a day for 3 days then 2 tabs a day for 3 days and then 1 tab a day for 3 days. cyclobenzaprine (FLEXERIL) 10 mg tablet Take 1 tablet by mouth three times daily as needed. LORazepam (ATIVAN) 2 mg tab rOPINIRole (REQUIP) 1 mg tablet Take 1 tablet by mouth three times daily. dulaglutide (TRULICITY) 1.5 mg/0.5 mL pen injector Inject 1.5 mg subcutaneously one time a week. Inject once per week. Discard Pen After rOPINIRole (REQUIP) 0.5 mg tablet Take one tablet in an evening for 2 weeks then go to two in the evening. gabapentin (NEURONTIN) 100 mg capsule Take gabapentin 100 mg in the evening for a week, then increase to two 100 mg capsules for a week, and then increase up to three 100 mg capsules fluticasone (FLONASE) 50 mcg/actuation nasal spray Use 2 Sprays in each nostril once daily. Rinse mouth after use. hydrOXYzine HCl (ATARAX) 10 mg tablet Take 1 tablet by mouth three times daily as needed for anxiety. traZODone (DESYREL) 100 mg tablet Take 1 tablet by mouth daily at bedtime. metFORMIN (GLUCOPHAGE) 1,000 mg tablet Take 1 tablet by mouth twice daily with meals. esomeprazole (NEXIUM) 40 mg capsule Take 1 capsule by mouth once daily. sodium chloride (SALINE MIST) 0.65 % nasal spray Use 1 [place] in the nose as needed for cold/allergysymptoms. EPINEPHrine (AUVI-Q) 0.3 mg/0.3 mL auto-injector Inject 0.3 mL intramuscularly as needed. Insulin Syringe-Needle U-100 1 mL 29 gauge x 1/2 1 Each as needed. For Intercavernal Injections pseudoephedrine (SUDAFED) 30 mg tablet Take Four 4 (30 mg) Tablets for an erection lasting more than 2 hours. If not improved in 1 hour MUST go to ER phentolamine-alprostadil 0.5 mg - 20 mcg/mL injection (CPD) Inject 20 units into the intracavernosal region of the penis losartan (COZAAR) 100 mg tablet Take 1 tablet by mouth once daily. carvedilol (COREG) 25 mg tablet Take 1 tablet by mouth twice daily. Per Cardio, Dr. Schneider amLODIPine (NORVASC) 10 mg tablet Take 1 tablet by mouth once daily. Per Cardio, Dr. Schneider blood sugar diagnostic (BLOOD GLUCOSE TEST) test strip Test blood sugar(s) 2 times daily. Dx: OtherDM Code E11.22 Insulin: Yes Lancets lancets Test blood sugar(s) 2 times daily. Dx: Other DM Code E11.22 Insulin: Yes Tadalafil (CIALIS) 20 mg tab(s) Take 1 tablet by mouth once daily. As needed docusate sodium (COLACE) 100 mg capsule Take 1 capsule by mouth twice daily as needed for Constipation. erythromycin (ROMYCIN) 5 mg/gram (0.5 %) ophthalmic ointment Use 1 application in the left eye fourtimes daily for 7 days. FAMILY HISTORY Problem Relation Age of Onset other (cancer, lung) Mother Alzheimer's Disease Father No Known Problems Sister Heart Attack Brother No Known Problems Maternal Grandmother No Known Problems Maternal Grandfather No Known Problems Paternal Grandmother No Known Problems Paternal Grandfather Social History Tobacco Use Smoking status: Former Smokeless tobacco: Never Tobacco comments: quit around 1983 Vaping Use Vaping Use: Never used Substance Use Topics Alcohol use: Yes Comment: seldom beer Drug use: No Review of Systems Constitutional: Negative for chills and fever. HENT: Negative for congestion and sore throat. Eyes: Positive for redness and itching. Negative for photophobia, pain, discharge and visual disturbance. Respiratory: Negative for cough and shortness of breath. Gastrointestinal: Negative for diarrhea and vomiting. Objective BP 118/64 Pulse 85 Temp 36.4 C (97.6 F) Resp 21 Wt 89.6 kg (197 lb 9.6 oz) SpO2 98% BMI29.61 kg/m Physical Exam Vitals and nursing note reviewed. Constitutional: General: He is not in acute distress. Appearance: Normal appearance. He is not toxic-appearing. HENT: Nose: Nose normal. Mouth/Throat: Mouth: Mucous membranes are moist. Eyes: General: Lids are normal. Extraocular Movements: Extraocular movements intact. Conjunctiva/sclera: Left eye: Left conjunctiva is injected. No exudate. Cardiovascular: Rate and Rhythm: Normal rate and regular rhythm. Pulmonary: Effort: Pulmonary effort is normal. Breath sounds: Normal breath sounds. Skin: General: Skin is warm and dry. Neurological: Mental Status: He is alert. Assessment and Plan ASSESSMENT/PLAN: 1. Conjunctivitis of left eye, unspecified conjunctivitis type - ICD9: 372.30, ICD10: H10.9 - see medication orders- Erythromycin ointment. - course and contagiousness issues discussed, including hand washing. - Instructed to call if high fever, development of periorbital redness or swelling, eye pain, visual changes, concerns or if symptoms persist. Diagnosis and treatment plan were discussed and questions were answered to the patient's satisfaction. Pt acknowledged understanding of concepts and follow up plan. Specific signs and symptoms that would indicate the need for higher level of care were discussed in detail warranting prompt ER evaluation. EDY Ta [facility] Miscellaneous Notes* Telephone Encounter - Javad Packer LPN - 12/24/2022 10:11 AM EST Patient phones requesting refills as follows: Requested Prescriptions Pending Prescriptions Disp Refills fluticasone (FLONASE) 50 mcg/actuation nasal spray 1 Each 5 Sig: Use 2 Sprays in each nostril once daily. Rinse mouth after use. RO[place] 12/09/22 NOV 01/21/23 Please review and advise. Javad Packer LPN * Telephone Encounter - An Renee - 12/24/2022 9:02 AM EST Patient has been identified by name and date of : Yes Requested Prescriptions Pending Prescriptions Disp Refills fluticasone (FLONASE) 50 mcg/actuation nasal spray 1 Each 5 Sig: Use 2 Sprays in each nostril once daily. Rinse mouth after use. RX INSTRUCTIONS: Patient aware RX will be sent to pharmacy. No need to notify patient. An Renee documented in this encounterAv[facility] Miscellaneous Notes* Telephone Encounter - Anitra Hyde LPN - 12/14/2022 2:15 PM EST Pt notified of results & voiced understanding. Anitra Hyde LPN * Telephone Encounter - Cruz Prado MD - 12/14/2022 1:34 PM EST Let patient know low back x-ray showed nothing acute. He does have mild-mod arthritic changes. documented in this encounterAv[facility] History of Present illness Narrative* Gabby Stark APRN.SOCIAL MEDIA MANAGER - 12/14/2022 1:42 PM EST Subjective The history is provided by the patient. No language arts teacher was used. HPI Dar Rose is a 67 year old male who presents today for CC of fatigue, and a little diarrhea for past 2 days. He has not used any medications. 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 He denies any known exposure, desires covid test. BP 130/78 Pulse 69 Temp 36.4 C (97.5 F) (Tympanic) Resp 18 Wt 88.5 kg (195 lb) SpO2 97% BMI 29.22 kg/m Social History Tobacco Use Smoking status: Former Smokeless tobacco: Never Tobacco comments: quit around 1983 Vaping Use Vaping Use: Never used Substance Use Topics Alcohol use: Yes Comment: seldom beer Drug use: No 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 07/06/2018 Basal cell carcinoma 12/02/2021 BPH (benign prostatic hyperplasia) s/p removal Chronic insomnia 02/24/2019 Controlled type 2 diabetes mellitus with stage 3 chronic kidney disease, without long-term current use of insulin ([facility]) 02/24/2019 Decreased libido 01/30/2018 Degenerative retinal drusen of both eyes 05/30/2015 Diabetic eye exam ([facility]) 03/18/2022 Last done 01/05/22 Non-Proliferative Diabetic Retinopathy mild [facility] (erectile dysfunction) 05/20/2021 Essential hypertension, benign 06/06/2006 Ex-smoker 05/20/2021 Started age 16, up to 2 PPD quit age 21 Gastroesophageal reflux disease with esophagitis without hemorrhage 05/20/2021 Herniated lumbar intervertebral disc History of BPH s/p removal History of depression Iron deficiency anemia 06/21/2020 Irritable bowel syndrome with both constipation and diarrhea 07/31/2021 Leg cramps 01/30/2018 Living will on file at physician's office 10/13/2022 DPA: catherine () Low testosterone in male 06/21/2020 Lumbar radiculopathy 02/24/2019 Malignant melanoma of torso excluding breast ([facility]) 02/11/2020 Mixed hyperlipidemia 03/20/2013 Nuclear sclerotic cataract of both eyes 05/30/2015 Peripheral retinal degeneration, paving stone, bilateral 09/09/2017 Peripheral sensory neuropathy due to type 2 diabetes mellitus ([facility]) 08/30/2022 Posterior vitreous detachment of left eye 08/31/2016 Posterior vitreous detachment of right eye 09/09/2017 Renal cyst, right 08/10/2021 Simple, benign US 07/2021 Retinopathy 03/19/2022 Mild B/l Rotator cuff tear, left Senile nuclear sclerosis 05/17/2017 Senile nuclear sclerosis, bilateral 09/09/2017 SVT (supraventricular tachycardia) ([facility]) 05/20/2021 Treated with Ablation: 2013 Type 2 diabetes mellitus with retinopathy, without long-term current use of insulin ([facility]) 09/09/2017 Uncontrolled type 2 diabetes mellitus with stage 3 chronic kidney disease, without long-term current use of insulin 01/30/2018 Vitreous syneresis of both eyes 05/30/2015 Well adult exam 08/23/2022 I have confirmed and edited as necessary, the [facility] Review of Systems Constitutional: Positive for malaise/fatigue. Negative for chills and fever. HENT: Negative for congestion, ear pain, sinus pain and sore throat. Respiratory: Negative for cough, sputum production, shortness of breath and wheezing. Cardiovascular: Negative for chest pain. Gastrointestinal: Positive for diarrhea. Negative for abdominal pain, nausea and vomiting. Musculoskeletal: Negative for myalgias. Neurological: Negative for headaches. Objective Physical Exam Vitals and nursing note reviewed. Constitutional: Appearance: He is not toxic-appearing. HENT: Head: Normocephalic and atraumatic. Right Ear: Tympanic membrane, ear canal and external ear normal. Left Ear: Tympanic membrane, ear canal and external ear normal. Nose: No mucosal edema, congestion or rhinorrhea. Right Sinus: No maxillary sinus tenderness or frontal sinus tenderness. Left Sinus: No maxillary sinus tenderness or frontal sinus tenderness. Mouth/Throat: Pharynx: Uvula midline. No oropharyngeal exudate or posterior oropharyngeal erythema. Tonsils: No tonsillar abscesses. Cardiovascular: Rate and Rhythm: Normal rate and regular rhythm. Heart sounds: Normal heart sounds. Pulmonary: Effort: Pulmonary effort is normal. Breath sounds: Normal breath sounds. No decreased breath sounds, wheezing, rhonchi or rales. Abdominal: General: Abdomen is flat. Bowel sounds are normal. There is no distension. Palpations: Abdomen is soft. There is no mass. Tenderness: There is no abdominal tenderness. Lymphadenopathy: Head: Right side of head: No submental, submandibular, tonsillar or preauricular adenopathy. Left side of head: No submental, submandibular, tonsillar or preauricular adenopathy. Cervical: No cervical adenopathy. Right cervical: No superficial cervical adenopathy. Left cervical: No superficial cervical adenopathy. Neurological: Mental Status: He is alert. ASSESSMENT/PLAN: 1. Fatigue, unspecified type - ICD9: 780.79, ICD10: R53.83 (primary diagnosis) 2. Diarrhea, unspecified type - ICD9: 787.91, ICD10: R19.7 Possible, viral, possible lack of sleep Covid testing ordered Rest, hydrate If no improvement follow up with PCP Diagnosis and treatment plan were discussed and questions were answered to the patient's satisfaction. Pt acknowledged understanding of concepts and follow up plan. Specific signs and symptoms that would indicate the need for higher level of care were discussed indetail warranting prompt ER evaluation. Gabby Stark APRN.SOCIAL MEDIA MANAGER documented in this encounterAvita [facility] Miscellaneous Notes* Telephone Encounter - Cruz Prado MD - 12/13/2022 10:42 AM EST Noted. Will update patient on x-ray results once read. * Telephone Encounter - Nevaeh Londono LPN - 12/13/2022 10:15 AM EST Pt notified of labs. Pt is asking for xray results from 12/03/22. Xray says In Process. Pt also wanted to let pcp know that prednisone seems to be working. Nevaeh Londono LPN * Telephone Encounter - Milind Denis MA - 12/13/2022 9:01 AM EST Left message for patient to contact office. Milind Denis MA * Telephone Encounter - Cruz Prado MD - 12/10/2022 6:04 PM EST Let patient know the inflammatory markers labs were normal. documented in this encounterAvita [facility] Miscellaneous Notes* Telephone Encounter - Cruz Prado MD - 11/12/2022 5:21 PM EST Et patient know script for the flexeril sent in. I did not send in any ativan. The following approved medication requests have been transmitted electronically. Requested Prescriptions Signed Prescriptions Disp Refills cyclobenzaprine (FLEXERIL) 10 mg tablet 90 tablet 3 Sig: Take 1 tablet by mouth three times daily as needed. Authorizing Provider: CRUZ PRADO MD * Telephone Encounter - Cheryle Malone RN - 11/12/2022 3:24 PM EST Patient calls and states that he takes the Flexeril for his back and the ativan for anxiety. Patient states that he does not care if the ativan is refilled. Patient states that he does need the Flexeril. Please review and advise, Cheryle Malone RN * Telephone Encounter - Cruz Prado MD - 11/12/2022 11:21 AM EST So I need some additional info. 1) does he take the flexeril for his back? 2) was does he take an ativan for? How often? Because he has never gotten a script from DR. Giles in the past or other family practice provider here. * Telephone Encounter - Milind Denis MA - 11/11/2022 4:03 PM EST Patient has been identified by name and date of : Yes Requested Prescriptions Pending Prescriptions Disp Refills cyclobenzaprine (FLEXERIL) 10 mg tablet 90 tablet 3 Sig: Take 1 tablet by mouth three times daily as needed. LORazepam (ATIVAN) 2 mg tab RX INSTRUCTIONS: Patient aware RX will be sent to pharmacy. No need to notify patient. Milind Denis MA Robson: 09/2022 Nov: 12/2022 Last refill: 12/2020 Prescription has not been prescribed as since 2018. Verified with patient he is uses if very rarely. Noted as a med up by PSS. Milind Denis MA * Telephone Encounter - Elsie Gant - 11/11/2022 3:57 PM EST Patient has been identified by name and date of : Yes, Provider JOHAN Patient phones for refill(s): Requested Prescriptions Pending Prescriptions Disp Refills cyclobenzaprine (FLEXERIL) 10 mg tablet 90 tablet 3 Sig: Take 1 tablet by mouth three times daily as needed. LORazepam (ATIVAN) 2 mg tab Date of last office visit in primary care: 10/13/22 Last 2 Encounter Wt Readings: Date: Wt: 10/13/2022 85.7 kg (189 lb) 08/23/2022 88.3 kg (194 lb 9.6 oz) Previous labs/tests for medication: Not applicable Please advise. Thank you. Elsie Gant documented in this encounterAv[facility]01-03-[facility]23 Miscellaneous Notes* Telephone Encounter - Jenn Goodman RN - 11/02/2022 4:02 PM EST Patient calls and notified of results. Patient verbalizes understanding. Jenn Goodman RN * Telephone Encounter - Cruz Prado MD - 11/02/2022 3:58 PM EST Us of legs showed no blood clots. documented in this encounterAvita [facility]12-19-2022 Miscellaneous Notes* Telephone Encounter - Nevaeh Londono LPN - 10/18/2022 8:46 AM EST Jannet with [facility] is calling in regards to ropinirole 1 mg rx. Directions state to take 1 tab three times daily but #90 was prescribed for mail-in pharmacy. Jannet is requesting #270 for 90 daysupply. Please review and advise. Patient has been identified by name and date of : Yes Requested Prescriptions Pending Prescriptions Disp Refills rOPINIRole (REQUIP) 1 mg tablet 270 tablet 1 Sig: Take 1 tablet by mouth three times daily. RX INSTRUCTIONS: Pharmacy initiated this request. No need to notify patient. Nevaeh Londono LPN documented in this encounterAvita [facility]12-14-2022 Instructions* Patient Instructions* Cruz Prado MD - 10/13/2022 1:58 PM EST If you want to get the shingrix vaccine for the prevention of shingles please check with insurance to see if covered. Please get labs done on or after 04/01/2023 prior to your next visit. documented in this encounterAvita Health [facility]12-14-2022 History of Present illness Narrative* Cruz Prado MD - 10/13/2022 1:40 PM EST Chief Complaint Patient presents with: Pain: Patient is here for continued leg pain HPI Dar Rose is a 67 year old male who presents here today for continued bilateral leg pain, mainly in right leg. Having cramping and throbbing. Patient notices more at night time and is effectingsleep. Has been taking gabapentin only at night time and only taking 200 mg and he has noted improvement in the neuropathy but it's the cramping and pains he gest in his legs that is more of an issue and not any better. Flexeril helps but feels disoriented/cloudy the next day. Has noted slight pain in thelower back on occasion. Patient with hx of DM2, anemia, CKD, GERD, HTN, HLP, SVT, and those as below. Past medical history, appointments, medications, allergies reviewed. Previous Medical History PAST MEDICAL HISTORY Diagnosis Date Anxiety 11/16/2012 Arrhythmia 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 07/06/2018 Basal cell carcinoma 12/02/2021 BPH (benign prostatic hyperplasia) s/p removal Chronic insomnia 02/24/2019 Controlled type 2 diabetes mellitus with stage 3 chronic kidney disease, without long-term current use of insulin ([facility]) 02/24/2019 Decreased libido 01/30/2018 Degenerative retinal drusen of both eyes 05/30/2015 ED (erectile dysfunction) 05/20/2021 Essential hypertension, benign 06/06/2006 Ex-smoker 05/20/2021 Started age 16, up to 2 PPD quit age 21 Gastroesophageal reflux disease with esophagitis without hemorrhage 05/20/2021 Herniated lumbar intervertebral disc History of depression Iron deficiency anemia 06/21/2020 Irritable bowel syndrome with both constipation and diarrhea 07/31/2021 Leg cramps 01/30/2018 Low testosterone in male 06/21/2020 Lumbar radiculopathy 02/24/2019 Malignant melanoma of torso excluding breast ([facility]) 02/11/2020 Mixed hyperlipidemia 03/20/2013 Nuclear sclerotic cataract of both eyes 05/30/2015 Peripheral retinal degeneration, paving stone, bilateral 09/09/2017 Peripheral sensory neuropathy due to type 2 diabetes mellitus ([facility]) 08/30/2022 Posterior vitreous detachment of left eye 08/31/2016 Posterior vitreous detachment of right eye 09/09/2017 Renal cyst, right 08/10/2021 Simple, benign US 07/2021 Rotator cuff tear, left Senile nuclear sclerosis 05/17/2017 Senile nuclear sclerosis, bilateral 09/09/2017 SVT (supraventricular tachycardia) ([facility]) 05/20/2021 Treated with Ablation: 2013 Type 2 diabetes mellitus with retinopathy, without long-term current use of insulin ([facility]) 09/09/2017 Uncontrolled type 2 diabetes mellitus with stage 3 chronic kidney disease, without long-term current use of insulin 01/30/2018 Vitreous syneresis of both eyes 05/30/2015 Well adult exam 08/23/2022 Previous Surgical History PAST SURGICAL HISTORY Procedure Laterality Date COLONOSCOPY 2011 COLONOSCOPY FLX DX W/COLLJ SPEC WHEN PFRMD 08/21/2018 repeat 5 years ESOPHAGOGASTRODUODENOSCOPY TRANSORAL DIAGNOSTIC 08/21/2018 repeat 2 years FASCT PALM W/WO Z-PLASTY TISSUE REARGMT/SKN GRFT Left 01/05/2018 A1 sánchez release ring finger HEART SURGERY HX LAPS PROSTECT RETROPUBIC RAD W/NRV SPARING ROBOT 02/02/2019 for enlarged prostate PAST SURGICAL HISTORY OF 2000 rotator cuff left PAST SURGICAL HISTORY OF 2013 ablation, SVT TONSILLECTOMY HX Family History FAMILY HISTORY Problem Relation Age of Onset other (cancer, lung) Mother Alzheimer's Disease Father No Known Problems Sister Heart Attack Brother No Known Problems Maternal Grandmother No Known Problems Maternal Grandfather No Known Problems Paternal Grandmother No Known Problems Paternal Grandfather Patient Allergies ALLERGIES Allergen Reactions Bee Sting Anaphylaxis Amitriptyline Intolerance Did not tolerate. Tramadol Vomiting Current Medications Current Outpatient Medications on File Prior to Visit Medication Sig gabapentin (NEURONTIN) 100 mg capsule Take gabapentin 100 mg in the evening for a week, then increase to two 100 mg capsules for a week, and then increase up to three 100 mg capsules fluticasone (FLONASE) 50 mcg/actuation nasal spray Use 2 Sprays in each nostril once daily. Rinse mouth after use. hydrOXYzine HCl (ATARAX) 10 mg tablet Take 1 tablet by mouth three times daily as needed for anxiety. dulaglutide (TRULICITY) 1.5 mg/0.5 mL pen injector Inject 1.5 mg subcutaneously one time a week. Inject once per week. Discard Pen After traZODone (DESYREL) 100 mg tablet Take 1 tablet by mouth daily at bedtime. metFORMIN (GLUCOPHAGE) 1,000 mg tablet Take 1 tablet by mouth twice daily with meals. esomeprazole (NEXIUM) 40 mg capsule Take 1 capsule by mouth once daily. sodium chloride (SALINE MIST) 0.65 % nasal spray Use 1 [place] in the nose as needed for cold/allergysymptoms. EPINEPHrine (AUVI-Q) 0.3 mg/0.3 mL auto-injector Inject 0.3 mL intramuscularly as needed. Insulin Syringe-Needle U-100 1 mL 29 gauge x 1/2 1 Each as needed. For Intercavernal Injections pseudoephedrine (SUDAFED) 30 mg tablet Take Four 4 (30 mg) Tablets for an erection lasting more than 2 hours. If not improved in 1 hour MUST go to ER phentolamine-alprostadil 0.5 mg - 20 mcg/mL injection (CPD) Inject 20 units into the intracavernosal region of the penis erythromycin (ROMYCIN) 5 mg/gram (0.5 %) ophthalmic ointment Use 1 application in the right eye three times daily. fluticasone (FLONASE) 50 mcg/actuation nasal spray Use 2 Sprays in each nostril once daily. Rinse mouth after use. losartan (COZAAR) 100 mg tablet Take 1 tablet by mouth once daily. carvedilol (COREG) 25 mg tablet Take 1 tablet by mouth twice daily. Per CardioDr. Schneider amLODIPine (NORVASC) 10 mg tablet Take 1 tablet by mouth once daily. Per Cardio, Dr. Schneider blood sugar diagnostic (BLOOD GLUCOSE TEST) test strip Test blood sugar(s) 2 times daily. Dx: OtherDM Code E11.22 Insulin: Yes Lancets lancets Test blood sugar(s) 2 times daily. Dx: Other DM Code E11.22 Insulin: Yes Tadalafil (CIALIS) 20 mg tab(s) Take 1 tablet by mouth once daily. As needed cyclobenzaprine (FLEXERIL) 10 mg tablet Take 1 tablet by mouth three times daily as needed. docusate sodium (COLACE) 100 mg capsule Take 1 capsule by mouth twice daily as needed for Constipation. No current facility-administered medications on file prior to visit. Social History Social History Tobacco Use Smoking status: Former Smokeless tobacco: Never Tobacco comments: quit around 1983 Vaping Use Vaping Use: Never used Substance Use Topics Alcohol use: Yes Comment: seldom beer Drug use: No Review of Symptoms REVIEW OF SYSTEMS GENERAL: No unintentional weight loss, malaise or fevers HEENT: Negative for frequent or significant headaches, No changes in hearing or vision, no nose bleeds or other nasal problems NECK: Negative for lumps, goiter, pain and significant neck swelling RESPIRATORY: Negative for cough, hemoptysis, wheezing, COPD, dyspnea or shortness of breath CARDIOVASCULAR: Negative for chest pain, leg swelling, hypertension, CHF or palpitations GI: No nausea, vomiting, or increased diarrhea, No heartburn or reflux symptoms, and no blood : No history of dysuria, blood MUSCULOSKELETAL: see HPI SKIN: Negative for lesions, rash, and itching PSYCH: Negative for sleep disturbance, mood disorder and recent psychosocial stressors HEMATOLOGY/LYMPHOLOGY: Negative for prolonged bleeding, bruising easily or swollen nodes ENDOCRINE: Negative for cold or heat intolerance, polyuria, polydipsia and goiter NEURO: No history of headaches, syncope, paralysis, seizures or tremors EXAM: BP 148/84 (BP Site: Right Arm, BP Position: Sitting, BP Cuff Size: Regular Adult) Pulse 76 Resp16 Ht 174 cm (5' 8.5) Wt 85.7 kg (189 lb) BMI 28.32 kg/m BP 124/70 Pulse 76 Resp 16 Ht 174 cm (5' 8.5) Wt 85.7 kg (189 lb) BMI 28.32 kg/m Last 4 Encounter Wt Readings: Date: Wt: 10/13/2022 85.7 kg (189 lb) 08/23/2022 88.3 kg (194 lb 9.6 oz) 07/19/2022 88.4 kg (194 lb 12.8 oz) 07/08/2022 89.1 kg (196 lb 6.4 oz) General Appearance: Well appearing, alert, in no acute distress, well-hydrated, well nourished.. Skin: Skin color, texture, turgor normal, no suspicious rashes or lesions. Head: Normocephalic, no masses, lesions, tenderness or abnormalities. Eyes: Anicteric sclera. Pupils are equally round and reactive to light. Extraocular movements are intact. . Ears: External ears normal, canals clear. Neck: Supple, no adenopathy; thyroid symmetric, normal size, no bruits. Lungs: Lungs clear to auscultation. No wheezing, rhonchi, rales.. Heart: RRR without murmur, gallop, or rubs. No ectopy. Abdomen: Normal abdominal exam, Abdomen soft, non-tender. Bowel sounds normal. No masses, organomegaly. Extremities: No deformities, edema, skin discoloration, clubbing or cyanosis. Good capillary refill. . Musculoskeletal: Muscular strength intact, No joint swelling, deformity, or tenderness. Peripheral Pulses: Normal carotids and radials. Slightly decreased in the lower extremities. Neurologic: Gait normal. Reflexes normal and symmetric. Sensation to light touch and crainal nerves2-12 intact.. Genitalia: Normal, Penis normal. No urethral discharge. Scrotum normal to palpation. No hernia.. Health Maintenance List BP CONTROLLED (<130/80) Never done SHINGRIX VACCINE(1 of 2) Never done COVID-19 VACCINE(3 - Booster for Pfizer series) due on 03/28/2021 ADVANCE DIRECTIVE DISCUSSION Never done DEPRESSION ASSESSMENT Never done INFLUENZA(1) due on 07/01/2022 PNEUMOCOCCAL: 65+(3 - PPSV23 if available, else PCV20) due on 12/30/2022 DILATED RETINAL EXAM due on 01/05/2023 DIABETIC FOOT EXAM due on 02/02/2023 HBA1C due on 03/29/2023 ANNUAL PCP TEAM CHRONIC DISEASE VISIT due on 07/09/2023 URINE ALBUMIN:CREATININE RATIO due on 09/29/2023 LDL CHOLESTEROL due on 09/29/2023 SERUM CREATININE due on 09/29/2023 HEMOGLOBIN/HEMATOCRIT due on 09/29/2023 PROSTATE CANCER SCREENING DISCUSSION due on 12/12/2026 DTAP,TDAP,TD(2 - Td or Tdap) due on 03/13/2027 COLORECTAL CANCER SCREENING due on 06/01/2027 ABDOMINAL AORTIC ANEURYSM SCREENING Completed HEPATITIS C SCREENING Completed Data reviewed Component Latest Ref Rng & Units 07/31/2021 11/06/2021 12/12/2021 04/02/2022 09/29/2022 WBC 3.70 - 11.00 k/uL 8.03 7.85 RBC 4.20 - 6.00 m/uL 4.75 4.47 Hemoglobin 13.0 - 17.0 g/dL 13.6 12.9 (L) Hematocrit 39.0 - 51.0 % 40.6 39.5 MCV 80.0 - 100.0 fL 85.5 88.4 MCH 26.0 - 34.0 pg 28.6 28.9 MCHC 30.5 - 36.0 g/dL 33.5 32.7 RDW-CV 11.5 - 15.0 % 12.9 13.0 Platelet Count 150 - 400 k/uL 249 278 MPV 9.0 - 12.7 fL 10.3 10.7 Neut% % 68.5 75.9 Abs Neut (ANC) 1.45 - 7.50 k/uL 5.50 5.96 Lymph% % 17.8 13.4 Abs Lymph 1.00 - 4.00 k/uL 1.43 1.05 [place]% % 10.5 7.1 Abs [place] <0.87 k/uL 0.84 0.56 Eosin% % 2.6 2.4 Abs Eosin <0.46 k/uL 0.21 0.19 Baso% % 0.6 0.8 Abs Baso <0.11 k/uL 0.05 0.06 Immature Gran % % 0.4 IMMATURE GRANS (ABS) <0.10 k/uL 0.03 NRBC /100 WBC 0.0 Absolute nRBC <0.01 k/uL <0.01 <0.01 DTYPE Auto Nucleated Reds 0 /100 WBC 0.0 Diff Type Auto Diff Protein, Total 6.3 - 8.0 g/dL 7.1 7.1 7.2 Albumin 3.9 - 4.9 g/dL 4.6 4.5 4.4 Calcium 8.5 - 10.2 mg/dL 9.2 9.8 9.4 Bilirubin, Total 0.2 - 1.3 mg/dL 0.3 0.4 0.3 Alkaline Phosphatase 38 - 113 U/L 47 53 55 AST 14 - 40 U/L 24 19 15 Glucose 74 - 99 mg/dL 90 83 104 (H) BUN 9 - 24 mg/dL 25 (H) 19 24 Creatinine 0.73 - 1.22 mg/dL 1.50 (H) 1.47 (H) 1.40 (H) Sodium 136 - 144 mmol/L 137 136 137 Potassium 3.7 - 5.1 mmol/L 4.7 4.4 4.5 Chloride 97 - 105 mmol/L 101 100 102 CO2 22 - 30 mmol/L 25 24 24 Anion Gap 9 - 18 mmol/L 11 12 11 ALT 10 - 54 U/L 33 18 15 eGFR- 56 eGFR-All Other Races . 47 eGFR >=60 mL/min/1.73m 52 (L) 55 (L) Color Yellow Light Yellow Light Yellow Clarity Clear Clear Clear Glucose, Urine Negative Negative Negative Bilirubin, Urine Negative Negative Negative Ketones, Urine Negative Negative Negative Specific [place], Ur 1.005 - 1.030 1.013 1.018 Hemoglobin/Blood,Ur Negative Negative Negative pH, Urine 5.0 - 8.0 6.0 6.0 Protein, Urine Negative Negative Negative Urobilinogen Negative Negative Negative Nitrites Negative Negative Negative Leukest Negative Negative Negative WBC, Urine 0-5 /HPF 0-5 /HPF 0-5 /HPF RBC, Urine 0-3 /HPF 0-3 /HPF 0-3 /HPF Epithelial Cells /HPF Few Total Cholesterol, Nonfasting <200 mg/dL 110 158 159 Triglycerides, Nonfasting <150 mg/dL 117 171 (H) 115 HDL Cholesterol, Nonfasting >39 mg/dL 39 (L) 35 (L) 36 (L) LDL Cholesterol, Nonfasting <100 mg/dL 48 89 100 (H) Non HDL Cholesterol, Nonfasting <130 mg/dL 71 123 123 VLDL Cholesterol, Nonfasting <30 mg/dL 23 34 (H) 23 Total Chol/HDL Ratio, Nonfasting <5.10 mg/dL 2.82 4.51 4.42 LDL/HDL Ratio, Nonfasting <2.54 mg/dL 1.23 2.54 (H) 2.78 (H) Creatinine, Ur Random (UCRR) 20.0 - 300.0 mg/dL 93.8 85.7 Albumin, Urine Random mg/L <12.0 <12.0 Albumin/Creat Ratio <30 mg/g <13 <14 Iron 41 - 186 ug/dL 66 TIBC 232 - 386 ug/dL 375 Transferrin Saturation 15.0 - 57.0 % 17.6 Hemoglobin A1C 4.3 - 5.6 % 6.9 (H) 6.0 (H) 6.0 (H) Estimated Average Glucose mg/dL 151 126 126 TSH 0.270 - 4.200 uU/mL 1.470 2.120 Vitamin B12 232 - 1,245 pg/mL 402 Magnesium 1.7 - 2.3 mg/dL 1.9 A/P ASSESSMENT/PLAN: 1. Well adult exam - ICD9: V70.0, ICD10: Z00.00 (primary diagnosis) - Counseled on healthy diet and regular exercise - Patient was counseled [id number] by myself (the billing provider) for the following immunizations and vaccine components, including side effects: Influenza. Patient consents for immunization and understands risks and benefits. A VIS sheet on each immunization was given to the patient. - Follow up for annual exam in one year 2. Controlled type 2 diabetes mellitus with stage 3 chronic kidney disease, without long-term current use of insulin (HCC) - ICD9: 250.40, 585.3, ICD10: E11.22, N18.30 Controlled. - Continue current medications - Encouraged regular aerobic exercise and weight loss - BP goal of <130/80 - LDL goal of <100 - TRULICITY 1.5 MG/0.5 ML SUBCUTANEOUS PEN INJECTOR 3. Type 2 diabetes mellitus with retinopathy, without long-term current use of insulin, macular edema presence unspecified, unspecified laterality, unspecified retinopathy severity (HCC) - ICD9: 250.50, 362.01, ICD10: E11.319 - as per #2 4. 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) - ICD9: 250.60, 356.2, ICD10: E11.42 - cont Neurontin. Patient to try to wean up to 300 mg QHS 5. SVT (supraventricular tachycardia) (HCC) - ICD9: 427.89, ICD10: I47.1 - stable clinically. 6. Essential hypertension, benign - ICD9: 401.1, ICD10: I10 - good control - Continue current medication(s) - Recommended regular aerobic exercise. - Recommend home blood pressure monitoring, to bring results in on next visit - Goal of BP <130/80 7. Mixed hyperlipidemia - ICD9: 272.2, ICD10: E78.2 - good control - Encouraged following a low fat, low cholesterol diet. - Discussed the benefits of regular aerobic exercise and weight loss. - Encouraged following a low carbohydrate, healthy oil intake diet. - Continue current therapy. 8. Iron deficiency anemia, unspecified iron deficiency anemia type - ICD9: 280.9, ICD10: D50.9 - controlled. 9. Gastroesophageal reflux disease with esophagitis without hemorrhage - ICD9: 530.81, 530.10, ICD10: K21.00 - Continue treatment with Nexium 40 mg QD 10. 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 - ICD9: 530.85, ICD10: K22.70 - cont f/u EGD's and PPI 11. Anxiety - ICD9: 300.00, ICD10: F41.9 - stable no changes. 12. Chronic insomnia - ICD9: 780.52, ICD10: F51.04 - stable no changes. 13. Malignant melanoma of torso excluding breast (HCC) - ICD9: 172.5, ICD10: C43.59 - management per Derm 14. Retinopathy - ICD9: 362.10, ICD10: H35.00 - seeing optho 15. Living will on file at physician's office - ICD9: V49.89, ICD10: Z78.9 - up to date 16. Advance directive discussed with patient - ICD9: V65.49, ICD10: Z71.89 - up to date 17. History of BPH - ICD9: V13.89, ICD10: Z87.438 - no issues 18. Pain in both lower extremities - ICD9: 729.5, ICD10: M79.604, M79.605 Check - US LEG VEIN DVT [facility]ADD[facility] - will give Requip a try. 19. Encounter for immunization - ICD9: V03.89, ICD10: Z23 - INFLUENZA SEASONAL QUADRIVALENT HIGH DOSE AGE 65+: given Requested Prescriptions Signed Prescriptions Disp Refills dulaglutide (TRULICITY) 1.5 mg/0.5 mL pen injector 12 Each 1 Sig: Inject 1.5 mg subcutaneously one time a week. Inject once per week. Discard Pen After rOPINIRole (REQUIP) 0.5 mg tablet 60 tablet 0 Sig: Take one tablet in an evening for 2 weeks then go to two in the evening. rOPINIRole (REQUIP) 1 mg tablet 90 tablet 1 Sig: Take 1 tablet by mouth three times daily. F/u 6 weeks leg pains. F/u 6 months routine check Lipid, BMP, CBC and A1c prior Cruz Prado MD documented in this encounterAvita [facility]11-04-2022 Miscellaneous Notes* Telephone Encounter - Milind Denis MA - 09/03/2022 1:07 PM EDT We have 3 attempts to contact patient with no response. Sent a [employer] message. Mailed letter today. Milind Denis MA * Telephone Encounter - Milind Denis MA - 09/02/2022 10:03 AM EDT Attempted to contact patient; no answer; voice mail full. Also sent my chart for patient to contact office. Milind Denis MA * Telephone Encounter - Raul Domingo LPN - 08/31/2022 1:38 PM EDT Attempted to contact pt. No answer and unable to leave vm. Will need to try again later. Raul Domingo LPN * Telephone Encounter - Jordyn Baeza LPN - 08/31/2022 10:36 AM EDT Tried contacting patient, no answer, VM full. Will need to try at another time. * Telephone Encounter - Cruz Prado MD - 08/30/2022 8:34 PM EDT Let patient know the nerve studies shows he has peripheral neuropathy. This is from his diabetes. There are meds that can help lesson the symptoms but no cure. Is the symptoms all the time or just certain times of the day. * Telephone Encounter - Catherine Moreno Ma - 08/30/2022 3:24 PM EDT Patient called and asking for results. Patient was given response below and results. Patient askingif EMG results be forwarded to Dr. Prado. Dr. Prado, see EMG results under scanned documents. * Telephone Encounter - Nicole Nicholson RN - 08/26/2022 2:36 PM EDT Attempted to contact patient to inform of the below but he did not answer and VM was full. Will tryagain later. * Telephone Encounter - Izabela Garcia RN - 08/26/2022 9:21 AM EDT Images from the original note were not included. (Newest Message First) Ani Nicholson RN; [facility] Pool 1 hour ago (8:05 AM) Please call patient to inform him that his emg does suggest peripipherial neuropathy. If he is having pain, referral to pain management for [facility] care could be an option Ani Linares DPM * Telephone Encounter - Nicole Nicholson RN - 08/25/2022 9:30 AM EDT EMG/NCV report received via fax from [facility]. Placed on Dr. Linares's desk for review. documented in this encounterAvita [facility]10-25-2022 Miscellaneous Notes* Telephone Encounter - Natasha Saunders Ma - 08/24/2022 9:42 AM EDT Pt sent [employer] message notifying him of information below from Provider. Pt made aware that we attempted to contact him but were unable to LM due to VM being full. If questions to update office. Natasha Saunders Ma * Telephone Encounter - Kristina Ya Cma - 08/24/2022 8:43 AM EDT No answer and VM full will need to try back later Kristina Ya Cma * Telephone Encounter - Cruz Prado MD - 08/23/2022 8:52 PM EDT Let patient know his labs and urine test is placed to do prior to his exam on 10/13/2022. documented in this encounterAvita [facility]10-10-2022 Miscellaneous Notes* Telephone Encounter - Milind Denis MA - 08/09/2022 10:35 AM EDT Prescription was sent 08/04/2022. Milind Denis MA documented in this encounterAvita Health [facility]10-10-2022 Miscellaneous Notes* Telephone Encounter - Anette Arreola PA-C - 08/09/2022 7:35 AM EDT The following approved medication requests have been transmitted electronically. Requested Prescriptions Signed Prescriptions Disp Refills hydrOXYzine HCl (ATARAX) 10 mg tablet 270 tablet 1 Sig: Take 1 tablet by mouth three times daily as needed for anxiety. Authorizing Provider: ANETTE ARREOLA PA-C * Telephone Encounter - Shabana Reed LPN - 08/06/2022 2:24 PM EDT Monica from [facility] mail away pharmacy calling requesting 90 day rx for Hydroxyzine rx. Rx was sent to them for 30 day supply. Asking for new rx to be sent. Reference number if needed [id number]. Pending rx needs completed with amounts. Please advise Patient has been identified by name and date of : Yes Pharmacy phones for refill(s): Requested Prescriptions Pending Prescriptions Disp Refills hydrOXYzine HCl (ATARAX) 10 mg tablet 1 Sig: Take 1 tablet by mouth three times daily as needed for anxiety. Date of last office visit in primary care: 05/12/2022, has appt 10/13/2022 Last 2 Encounter Wt Readings: Date: Wt: 07/19/2022 88.4 kg (194 lb 12.8 oz) 07/08/2022 89.1 kg (196 lb 6.4 oz) Previous labs/tests for medication: Not applicable Please advise. Thank you. Shabana Reed LPN documented in this encounterAvita Health [facility]09-19-2022 History of Present illness Narrative* Asim Denis APRN.SOCIAL MEDIA MANAGER - 07/19/2022 6:19 PM EDT Images from the original note were not included. Subjective Patient came in with complaints of bug bites on posterior side of right arm towards the armpit. Patient said he was mowing about 4 days ago and something went in his shirt he not sure what bit him. Now he says it is red and warm and a little raised. Patient denies any fevers nausea vomiting numbness tingling or pain shooting down his arm. Patient denies any other symptoms at all. The history is provided by the patient. No language arts teacher was used. Review of Systems Constitutional: Negative. Skin: Negative. Objective Physical Exam Constitutional: Appearance: Normal appearance. Pulmonary: Effort: Pulmonary effort is normal. Skin: Comments: Patient does have 3 and half centimeter raised area of warmth and redness located in the red area marked above. No signs of drainage. Neurological: Mental Status: He is alert. PAST MEDICAL HISTORY Diagnosis Date Anxiety 11/16/2012 Arrhythmia 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 07/06/2018 Basal cell carcinoma 12/02/2021 BPH (benign prostatic hyperplasia) s/p removal Chronic insomnia 02/24/2019 Controlled type 2 diabetes mellitus with stage 3 chronic kidney disease, without long-term current use of insulin ([facility]) 02/24/2019 Decreased libido 01/30/2018 Degenerative retinal drusen of both eyes 05/30/2015 ED (erectile dysfunction) 05/20/2021 Essential hypertension, benign 06/06/2006 Ex-smoker 05/20/2021 Started age 16, up to 2 PPD quit age 21 Gastroesophageal reflux disease with esophagitis without hemorrhage 05/20/2021 Herniated lumbar intervertebral disc History of depression Iron deficiency anemia 06/21/2020 Irritable bowel syndrome with both constipation and diarrhea 07/31/2021 Leg cramps 01/30/2018 Low testosterone in male 06/21/2020 Lumbar radiculopathy 02/24/2019 Malignant melanoma of torso excluding breast ([facility]) 02/11/2020 Mixed hyperlipidemia 03/20/2013 Nuclear sclerotic cataract of both eyes 05/30/2015 Peripheral retinal degeneration, paving stone, bilateral 09/09/2017 Posterior vitreous detachment of left eye 08/31/2016 Posterior vitreous detachment of right eye 09/09/2017 Renal cyst, right 08/10/2021 Simple, benign US 07/2021 Rotator cuff tear, left Senile nuclear sclerosis 05/17/2017 Senile nuclear sclerosis, bilateral 09/09/2017 SVT (supraventricular tachycardia) ([facility]) 05/20/2021 Treated with Ablation: 2013 Type 2 diabetes mellitus with retinopathy, without long-term current use of insulin ([facility]) 09/09/2017 Uncontrolled type 2 diabetes mellitus with stage 3 chronic kidney disease, without long-term current use of insulin 01/30/2018 Vitreous syneresis of both eyes 05/30/2015 PAST SURGICAL HISTORY Procedure Laterality Date COLONOSCOPY 2011 COLONOSCOPY FLX DX W/COLLJ SPEC WHEN PFRMD 08/21/2018 repeat 5 years ESOPHAGOGASTRODUODENOSCOPY TRANSORAL DIAGNOSTIC 08/21/2018 repeat 2 years FASCT PALM W/WO Z-PLASTY TISSUE REARGMT/SKN GRFT Left 01/05/2018 A1 sánchez release ring finger HEART SURGERY HX LAPS PROSTECT RETROPUBIC RAD W/NRV SPARING ROBOT 02/02/2019 for enlarged prostate PAST SURGICAL HISTORY OF 1999 rotator cuff left PAST SURGICAL HISTORY OF 2013 ablation, SVT TONSILLECTOMY HX ALLERGIES Bee Sting, Amitriptyline, and Tramadol MEDICATIONS sodium chloride (SALINE MIST) 0.65 % nasal spray Use 1 [place] in the nose as needed for cold/allergysymptoms. EPINEPHrine (AUVI-Q) 0.3 mg/0.3 mL auto-injector Inject 0.3 mL intramuscularly as needed. esomeprazole (NEXIUM) 40 mg capsule Take 1 capsule by mouth once daily. metFORMIN (GLUCOPHAGE) 1,000 mg tablet Take 1 tablet by mouth twice daily with meals. traZODone (DESYREL) 100 mg tablet Take 1 tablet by mouth daily at bedtime. Insulin Syringe-Needle U-100 1 mL 29 gauge x 1/2 1 Each as needed. For Intercavernal Injections pseudoephedrine (SUDAFED) 30 mg tablet Take Four 4 (30 mg) Tablets for an erection lasting more than 2 hours. If not improved in 1 hour MUST go to ER phentolamine-alprostadil 0.5 mg - 20 mcg/mL injection (CPD) Inject 20 units into the intracavernosal region of the penis erythromycin (ROMYCIN) 5 mg/gram (0.5 %) ophthalmic ointment Use 1 application in the right eye three times daily. dulaglutide (TRULICITY) 1.5 mg/0.5 mL pen injector Inject 1.5 mg subcutaneously one time a week. Inject once per week. Discard Pen After fluticasone (FLONASE) 50 mcg/actuation nasal spray Use 2 Sprays in each nostril once daily. Rinse mouth after use. losartan (COZAAR) 100 mg tablet Take 1 tablet by mouth once daily. carvedilol (COREG) 25 mg tablet Take 1 tablet by mouth twice daily. Per Cardio, Dr. Schneider amLODIPine (NORVASC) 10 mg tablet Take 1 tablet by mouth once daily. Per Cardio, Dr. Schneider blood sugar diagnostic (BLOOD GLUCOSE TEST) test strip Test blood sugar(s) 2 times daily. Dx: OtherDM Code E11.22 Insulin: Yes Lancets lancets Test blood sugar(s) 2 times daily. Dx: Other DM Code E11.22 Insulin: Yes hydrOXYzine HCl (ATARAX) 10 mg tablet Take 1 tablet by mouth three times daily as needed for anxiety. Tadalafil (CIALIS) 20 mg tab(s) Take 1 tablet by mouth once daily. As needed cyclobenzaprine (FLEXERIL) 10 mg tablet Take 1 tablet by mouth three times daily as needed. docusate sodium (COLACE) 100 mg capsule Take 1 capsule by mouth twice daily as needed for Constipation. doxycycline monohydrate 100 mg tablet Take 1 tablet by mouth twice daily for 5 days. predniSONE (DELTASONE) 20 mg tablet Take 1 tablet by mouth once daily for 5 days. FAMILY HISTORY Problem Relation Age of Onset other (cancer, lung) Mother Alzheimer's Disease Father No Known Problems Sister Heart Attack Brother No Known Problems Maternal Grandmother No Known Problems Maternal Grandfather No Known Problems Paternal Grandmother No Known Problems Paternal Grandfather Social History Tobacco Use Smoking status: Former Smokeless tobacco: Never Tobacco comments: quit around 1983 Vaping Use Vaping Use: Never used Substance Use Topics Alcohol use: Yes Comment: seldom beer Drug use: No ASSESSMENT/PLAN: 1. Skin infection - ICD9: 686.9, ICD10: L08.9 Doxycycline twice a day for 5 days. Prednisone daily for 5 days. Educated about proper use of medication and supportive therapies. Patient to follow-up if signs and symptoms to be getting worse not better. Patient was okay with this care plan. Asim Denis APRN.KRANTHI documented in this encounterAv[facility] Miscellaneous Notes* Telephone Encounter - Raul Domingo LPN - 07/09/2022 2:52 PM EDT Pt did have vv with Yury Knox today. Raul Domingo LPN * Telephone Encounter - Cruz Prado MD - 07/09/2022 11:43 AM EDT Patient will need to do either a Vv with a provider or express care on line or come into express care. To see if a candidate. I do tell patient's if the symptom's are mild then I don't recommend the anti-viral * Telephone Encounter - Milind Denis MA - 07/09/2022 8:27 AM EDT Patient is requesting: From another mychart note (Could I please get a prescription for paxlovid) Milind Denis MA documented in this encounterAv[facility]-2022 Miscellaneous Notes* Telephone Encounter - Lurdes Hernandez Ma - 07/09/2022 9:06 AM EDT Called pt, he has been schedule for phone visit with Yury Knox today. Lurdes Hernandez Ma * Telephone Encounter - Cherie Collier - 07/09/2022 8:06 AM EDT Dar Rose is calling Cruz Prado MD today with concern regarding COVID positive; inquiring about paxlovid Patient has been identified by name and birthdate. Duration of symptoms: 3 days Person calling: self Call patient at: at home [phone] (home) Was an appointment scheduled: No Patient said he went to urgent care last night; tested positive for COVID. Inquiring about paxlovid. Closing statement: Symptom Call: Thank you for calling [facility], your call is very important. A nurse will call in approximately 2-4 hours during business hours. If this is an emergency, please contact 911. Cherie Collier documented in this encounterAvita [facility]09-08-2022 History of Present illness Narrative* Alexandria Pace, WOODY.SOCIAL MEDIA MANAGER - 07/08/2022 5:25 PM EDT Subjective HPI Dar presents today with compliant of sinus pain and pressure, along with daily increasing pnd, x2 weeks, he states he stated with a cough today, denies fever, or other respiratory symptoms, states periodical has noted nausea but no v/d. 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 He states he worked all day, doing normal activities has not taken meds, Review of Systems HENT: Positive for congestion and sinus pain. Objective Physical Exam Constitutional: Appearance: Normal appearance. HENT: Head: Normocephalic and atraumatic. Comments: Maxillary tenderness with palpation Nose: Congestion (scant clear) present. Comments: Clear pnd noted Mouth/Throat: Mouth: Mucous membranes are dry. Pharynx: No oropharyngeal exudate or posterior oropharyngeal erythema. Eyes: Extraocular Movements: Extraocular movements intact. Pupils: Pupils are equal, round, and reactive to light. Cardiovascular: Rate and Rhythm: Normal rate and regular rhythm. Pulmonary: Effort: Pulmonary effort is normal. No respiratory distress. Breath sounds: Normal breath sounds. No stridor. No wheezing, rhonchi or rales. Chest: Chest wall: No tenderness. Abdominal: General: Abdomen is flat. Palpations: Abdomen is soft. Musculoskeletal: General: Normal range of motion. Cervical back: Normal range of motion and neck supple. Neurological: Mental Status: He is alert and oriented to person, place, and time. ASSESSMENT/PLAN: 1. Sinus congestion - ICD9: 478.19, ICD10: R09.81 (primary diagnosis) Doxy 10mg bid x 10 days - COVID WITH FLUA+B, ROUTINE 2. Acute upper respiratory infection, unspecified - ICD9: 465.9, ICD10: J06.9 Increase fluids Tea and honey Deep breathing Hot steamy shower or vaporizer - COVID WITH FLUA+B, ROUTINE Call in not improving or other symptoms develop Note given for work missed return 07/10/22 Alexandria Pace APRN.SOCIAL MEDIA MANAGER documented in this encounterAvita [facility]09-06-2022 Miscellaneous Notes* Telephone Encounter - Anette Arreola PA-C - 07/06/2022 11:43 AM EDT Noted. FYI to PCP. Patient is scheduled 07/07/22 * Telephone Encounter - Anitra Hyde LPN - 07/06/2022 11:23 AM EDT Caryl from [facility] calling to report pt canceled appt for sleep study 3X now, last appt canceled was 06/25/22. Anitra Hyde LPN documented in this encounterAvita [facility]08-19-2022 History of Present illness Narrative* Izabela Langford PA-C - 06/18/2022 4:23 PM EDT In lieu of an in-person visit due to COVID-19 concerns, a distance health visit was performed on the patient. This was initially scheduled as a virtual visit, however patient was unable to connect via [employer] platform and requested to complete visit by phone. Patient is aware that I am not fully able to assess symptoms and do a full physical examination including vital signs assessment at this time.Patient consents to this encounter. No video was used in the evaluation of this patient, as the patient preferred a telephone call. I personally called patient by telephone. FOLLOW UP VISIT - ENDOSCOPY NAME: Dar Coello [facility] NO.: [id number] DATE OF SERVICE: 06/18/2022 : 1955 REFERRING PHYSICIAN: Cruz Prado MD Dar is a patient I am following with Dr. Ca for history of colon polyps, abdominal discomfort and Matthew's esophagus. Dr. Ca performed upper and lower endoscopy on 06/01/22. The patient was found to have gastritis, short- segment Matthew's esophagus and small hiatal hernia on upper endoscopy. Colonoscopy showed sigmoid diverticulosis. Pathology demonstrated: The patient notes no complaints since the procedure. Assessment IMPRESSION: sigmoid diverticulosis, otherwise normal colonoscopy. Short-segment Matthew's esophaguswithout dysplasia PLAN: The operative findings and pathology report were reviewed with the patient, and the patient has hadthe opportunity to ask questions and have questions answered. Reviewed dietary and lifestyle modifications for gastritis and Matthew's. If the patient notes any problems or changes in bowel function,the patient should contact me immediately. Otherwise I recommend follow up upper endoscopy in 2-3 years for surveillance of Matthew's, and repeat colonoscopy in 5 years based on prior history of adenomatous colon polyp. HM updated and recall letter generated. Patient verbalized understanding of all above and agreed with the plan Diagnoses: (K22.70) 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 (primary encounter diagnosis) (K29.30) Chronic superficial gastritis without bleeding (K57.90) Diverticulosis I spent a total of 24 minutes on the date of the service which included preparing to see the patient, completing clinical documentation, obtaining and/or reviewing separately obtained history, counseling and educating the patient/family/caregiver, independently interpreting results (not separately r eported), and communicating results to the patient/family/caregiver. Izabela Langford PA-C documented in this encounterAvita [facility]08-02-2022 Nurse Note* Brianna Solano RN - 06/01/2022 7:11 PM EDT Arrived in Phase II via cart, left lateral position, eyes open, awake and alert, color normal, skinwarm and dry. Respirations WNL and unlabored. Abdomen soft and non distended. Patient awake and ready for snack. Dr Ca at bedside to review results of procedure and follow up documented in this encounterAvita [facility]08-02-2022 History and physical note * Gilberto Ca MD - 06/01/2022 3:45 PM EDT UPDATED PROCEDURAL SEDATION HISTORY AND PHYSICAL EXAMINATION SERVICE DATE: 06/01/2022 SERVICE TIME: 6:13 PM PHYSICAL EXAM MUST BE COMPLETED ON ADMISSION PROCEDURE: Procedure Indications: The History and Physical (completed in the past 30 days) has been reviewed and the patient has beenexamined. The contents accurately reflect the patient's condition with the following additions or revisions since the H&P was completed. ASA Class: ASA Class:: Patient with severe systemic disease Examination indicates no changes. AIRWAY: Airway Visualization of Uvula: Yes Mouth opening greater than 2 fingerbreadths: Yes Neck Full Range of Motion: Yes LUNGS: Lungs clear to auscultation CARDIAC: Regular rhythm,Regular rate Provisional Diagnosis/Treatment Plan: Matthew's esophagitis, history of polyps, EGD and Colonoscopy SEDATION GOAL: Moderate This H&P can be found in the attached. SIGNATURE: Gilberto Ca MD PATIENT NAME: Dar Rose DATE: June 01, 2022 TIME: 6:13 PM * Gilberto Ca MD - 06/01/2022 3:45 PM EDT Images from the original note were not included. HISTORY AND PHYSICAL Dar Rose 1955 REFERRING PHYSICIAN: Anette Arreola PA-C CHIEF COMPLAINT: Consult (colonoscopy, EGD) HPI: The patient is a 66 year old male referred for endoscopy. Dar notes a history of Matthew's esophagus and is due for surveillance EGD. Patient also notes intermittent abdominal pain which is relieved with having a bowel movement. He states this is located deep to the area where he had prior melanoma excision on his abdomen. Patient denies any change in bowel habits, weight changes, blood in stools, black tarry stools. Denies family history of colon issues. The patient notes no upper GI complaints. Dar has undergone prior endoscopy. Most recent EGD and colonoscopy 08/21/[address] Adame under conscious sedation with findings of short-segment Matthew's, negative for dysplasia, and adenomatouscolon polyp. Patient's past medical history is significant for type II diabetes mellitus, hypertension, depression, IBS, SVT. Patient follows with Dr. Prado in primary care for his chronic medical conditions. Denies chest pain, shortness of breath or recent hospitalizations. Denies problems with sedation in the past. PAST MEDICAL HISTORY PAST MEDICAL HISTORY Diagnosis Date Anxiety 11/16/2012 Arrhythmia 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 07/06/2018 Basal cell carcinoma 12/02/2021 BPH (benign prostatic hyperplasia) s/p removal Chronic insomnia 02/24/2019 Controlled type 2 diabetes mellitus with stage 3 chronic kidney disease, without long-term current use of insulin ([facility]) 02/24/2019 Decreased libido 01/30/2018 Degenerative retinal drusen of both eyes 05/30/2015 ED (erectile dysfunction) 05/20/2021 Essential hypertension, benign 06/06/2006 Ex-smoker 05/20/2021 Started age 16, up to 2 PPD quit age 21 Gastroesophageal reflux disease with esophagitis without hemorrhage 05/20/2021 Herniated lumbar intervertebral disc History of depression Iron deficiency anemia 06/21/2020 Irritable bowel syndrome with both constipation and diarrhea 07/31/2021 Leg cramps 01/30/2018 Low testosterone in male 06/21/2020 Lumbar radiculopathy 02/24/2019 Malignant melanoma of torso excluding breast ([facility]) 02/11/2020 Mixed hyperlipidemia 03/20/2013 Nuclear sclerotic cataract of both eyes 05/30/2015 Peripheral retinal degeneration, paving stone, bilateral 09/09/2017 Posterior vitreous detachment of left eye 08/31/2016 Posterior vitreous detachment of right eye 09/09/2017 Renal cyst, right 08/10/2021 Simple, benign US 07/2021 Rotator cuff tear, left Senile nuclear sclerosis 05/17/2017 Senile nuclear sclerosis, bilateral 09/09/2017 SVT (supraventricular tachycardia) ([facility]) 05/20/2021 Treated with Ablation: 2013 Type 2 diabetes mellitus with retinopathy, without long-term current use of insulin ([facility]) 09/09/2017 Uncontrolled type 2 diabetes mellitus with stage 3 chronic kidney disease, without long-term current use of insulin 01/30/2018 Vitreous syneresis of both eyes 05/30/2015 PAST SURGICAL HISTORY PAST SURGICAL HISTORY Procedure Laterality Date COLONOSCOPY 2011 COLONOSCOPY FLX DX W/COLLJ SPEC WHEN PFRMD 08/21/2018 repeat 5 years ESOPHAGOGASTRODUODENOSCOPY TRANSORAL DIAGNOSTIC 08/21/2018 repeat 2 years FASCT PALM W/WO Z-PLASTY TISSUE REARGMT/SKN GRFT Left 01/05/2018 A1 sánchez release ring finger HEART SURGERY HX LAPS PROSTECT RETROPUBIC RAD W/NRV SPARING ROBOT 02/02/2019 for enlarged prostate PAST SURGICAL HISTORY OF 1999 rotator cuff left PAST SURGICAL HISTORY OF 2013 ablation, SVT TONSILLECTOMY HX CURRENT MEDICATIONS Current Outpatient Medications Medication Sig EPINEPHrine (AUVI-Q) 0.3 mg/0.3 mL auto-injector Inject 0.3 mL intramuscularly as needed. esomeprazole (NEXIUM) 40 mg capsule Take 1 capsule by mouth once daily. metFORMIN (GLUCOPHAGE) 1,000 mg tablet Take 1 tablet by mouth twice daily with meals. traZODone (DESYREL) 100 mg tablet Take 1 tablet by mouth daily at bedtime. Insulin Syringe-Needle U-100 1 mL 29 gauge x 1/2 1 Each as needed. For Intercavernal Injections pseudoephedrine (SUDAFED) 30 mg tablet Take Four 4 (30 mg) Tablets for an erection lasting more than 2 hours. If not improved in 1 hour MUST go to ER phentolamine-alprostadil 0.5 mg - 20 mcg/mL injection (CPD) Inject 20 units into the intracavernosal region of the penis erythromycin (ROMYCIN) 5 mg/gram (0.5 %) ophthalmic ointment Use 1 application in the right eye three times daily. dulaglutide (TRULICITY) 1.5 mg/0.5 mL pen injector Inject 1.5 mg subcutaneously one time a week. Inject once per week. Discard Pen After fluticasone (FLONASE) 50 mcg/actuation nasal spray Use 2 Sprays in each nostril once daily. Rinse mouth after use. losartan (COZAAR) 100 mg tablet Take 1 tablet by mouth once daily. rosuvastatin (CRESTOR) 5 mg tablet Take 1 tablet by mouth daily at bedtime. carvedilol (COREG) 25 mg tablet Take 1 tablet by mouth twice daily. Per Cardio, Dr. Schneider amLODIPine (NORVASC) 10 mg tablet Take 1 tablet by mouth once daily. Per Cardio, Dr. Schneider blood sugar diagnostic (BLOOD GLUCOSE TEST) test strip Test blood sugar(s) 2 times daily. Dx: OtherDM Code E11.22 Insulin: Yes Lancets lancets Test blood sugar(s) 2 times daily. Dx: Other DM Code E11.22 Insulin: Yes hydrOXYzine HCl (ATARAX) 10 mg tablet Take 1 tablet by mouth three times daily as needed for anxiety. cyclobenzaprine (FLEXERIL) 10 mg tablet Take 1 tablet by mouth three times daily as needed. docusate sodium (COLACE) 100 mg capsule Take 1 capsule by mouth twice daily as needed for Constipation. Tadalafil (CIALIS) 20 mg tab(s) Take 1 tablet by mouth once daily. As needed (Patient not taking: Reported on 03/31/2022 ) No current facility-administered medications for this visit. ALLERGIES: Bee Sting, Amitriptyline, and Tramadol PERSONAL HISTORY: SOCIAL HISTORY Social History Tobacco Use Smoking status: Former Smoker Smokeless tobacco: Never Used Tobacco comment: quit around 1983 Vaping Use Vaping Use: Never used Substance Use Topics Alcohol use: Yes Comment: seldom beer Drug use: No FAMILY HISTORY: FAMILY HISTORY FAMILY HISTORY Problem Relation Age of Onset other (cancer, lung) Mother Alzheimer's Disease Father No Known Problems Sister Heart Attack Brother No Known Problems Maternal Grandmother No Known Problems Maternal Grandfather No Known Problems Paternal Grandmother No Known Problems Paternal Grandfather REVIEW OF SYMPTOMS: The review of systems data was entered by the nurse and reviewed by sc Nursing Notes: Parvin Perera LPN 03/31/2022 9:56 AM Signed REVIEW OF SYSTEMS: General: The patient notes fatigue, denies weight loss, denies weight gain, denies feeling hot, anddenies feelings of cold. Eyes: The patient denies glaucoma, denies eye injury/surgery, wears glasses or contacts. Ear/Nose/Throat: The patient denies allergies, denies hayfever, denies ear infections, and denies bloody noses. Cardiovascular: The patient denies chest pain, denies heart disease, notes high blood pressure,denies cardiac stent, denies prior heart attack, denies irregular heart beat, denies high cholesterol, denies poor circulation, denies heart failure, other cardiac issues, denies claudication, denies coldfeet, denies peripheral arterial stent. Respiratory: The patient denies tuberculosis, denies pneumonia, denies frequent cough, denies pulmonary embolism, denies shortness of breath, and denies coughing up blood. Gastrointestinal: The patient denies difficulty swallowing, notes acid reflux, denies ulcers, denies vomiting, denies jaundice/hepatitis, denies gallbladder problems, denies black or tarry stools, denies hemorrhoids, denies bleeding from rectum, denies diverticulitis, notes constipation, denies diarrhea, denies loss of stool control, and denies hernias. Kidney/Bladder: The patient notes kidney stones, denies urine infections, and denies bloody urine. Skin: The patient notes a history of skin cancer, denies bleeding/changing moles, and denies a history of skin rash. Neurologic: The patient denies a history of epilepsy/convulsions, denies headaches, denies head/spinal injuries, and denies stroke/TIA. Psychiatric: The patient denies psychiatric medications, denies depression, and denies voices, denies substance abuse. Endocrine: The patient denies thyroid disorders, notes diabetes, and denies hormonal problems. Hematologic: The patient denies a history of bruising, denies bleeding, and denies anemia, denies blood clots. Infections: The patient denies a history of measles and mumps, notes rheumatic fever, and denies sexually transmitted diseases. Musculoskeletal: The patient denies back pain/injury, denies back problems, notes sciatica, denies knee/foot trouble, denies arthritis, or denies gout. When was patient's last Mammogram screening? N/A Last Colonoscopy: 2018 Parvin Perera LPN I have confirmed and edited as necessary, the PFSH and ROS obtained by others. Izabela Langford PA-C PHYSICAL EXAMINATION: General: The patient is 66 year old male, well nourished, well hydrated in no acute distress. The patient is oriented to time, place, and person. VITALS: Blood pressure 142/76, pulse 82, temperature 36.8 C (98.2 F), height 177.8 cm (5' 10), weight 88.5 kg (195 lb), SpO2 99 %. Body mass index is 27.98 kg/m . HEENT: Normal cephalic, ataumatic, pupils are equally round, sclera are anicteric, mucous membranesare moist, oropharynx is clear. Neck has no masses, asymmetry or lymphadenopathy. Respiratory: Clear to auscultation and percussion. Normal respiratory excursion and pattern. Cardiac: Examination is regular rate and rhythm. Normal S1/S2 Abdominal exam: +healed scar right abdomen. Soft, nontender, with no palpable masses. No hepatosplenomegaly. No palpable hernias. Extremities: no clubbing, cyanosis or edema. No adenopathy. LABORATORY VALUES: As Noted RADIOLOGIC STUDIES: As Noted Assessment IMPRESSION: Matthew's esophagus due for surveillance. History of colon polyps PLAN: I have reviewed my findings with the surgeon. Dr. Ca also evaluated the patient and participated in plan. Will plan for upper and lower endoscopy. We discussed the risks and benefits of the planned endoscopy. I have informed the patient that complications can occur including failure to complete the endoscopy and perforation. The patient had the opportunity to ask questions concerning the planned endoscopy. My staff has also explained the procedure to the patient in understandable terms and has given the patient printed material concerning the procedure. The patient freely consents to surgery. The patient was offered a surgery/procedure at a [facility] facility. I have counseled the patient regarding the risk of exposure to and/or potential harm posed by the COVID-19 virus with having a surgery/procedure at this time versus the risk of delaying the surgery/procedure. It is not possible to know either the risk of delaying the surgery or procedure or chance of getting an infection with perfect accuracy, but a joint decision was made between the patient and myself to proceed at this time with endoscopy. I plan to use Golytely bowel preparation I have explained to the patient the difference between IV conscious sedation and MAC anesthesia - and I have offered either, according to the patient's wishes. I have explained that with IV conscioussedation there is no anesthesia provider available and therefore there is a limitation of the amount of IV medications that can be given and that the patient may wake up in the middle of the procedure and/or experience pain/discomfort during the procedure. Further discussion was done and the patient was given the opportunity to ask questions and all questions were answered. The patient chooses IVconscious sedation Diagnoses: (Z86.010) History of colonic polyps (primary encounter diagnosis) (R10.9) Abdominal pain, unspecified abdominal location (K22.70) 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 (Z85.820) History of malignant melanoma Consultation requested by Anette Arreola PA-C for an opinion regarding history of Matthew's esophagus as well as abdominal discomfort and history of polyps. My final recommendations will be communicated back to the requesting physician by way of shared Medical record or letter to requesting physician via US mail. Izabela Langford PA-C documented in this encounterAv[facility] Miscellaneous Notes* Telephone Encounter - Izabela Skelton RN - 05/31/2022 11:15 AM EDT Pt called and is notified of providers results. Pt voices understanding. Izabela Skelton RN * Telephone Encounter - Kristina Britton MA - 05/31/2022 8:34 AM EDT Unable to reach patient. Left VM to return call to office. Please read below and advise. Kristina Britton MA * Telephone Encounter - Cruz Prado MD - 05/30/2022 11:09 PM EDT Let patient know CBC, B12, folate and thyroid labs were all normal. documented in this encounterAv[facility] History of Present illness Narrative* Cruz Prado MD - 05/12/2022 4:33 PM EDT Chief Complaint Patient wants to R/s physical today; Leg pain right leg at night time; pain scale 6-7; discomfort. HPI Dar Rose is a 66 year old male who presents here today for Above Complaints. and Chronic Medical Conditions.. When patient lays down at night he is getting pain/numbness on the right from the toes up the lateral side of the foot and on the left it's on the underside of the medial side and lateral side. He did discuss with podiatry and was to get a NCS but never got the change to set up. If he gets up and walks it improves. No claudication symptoms. Fell 5-6 months ago and has been getting a pain on the Lateral right thigh from hip to knee. Putting Voltaren gel on the right hip at night helps. No difficulty starting urination or fecal incontinence. Patient with hx of DM2, anemia, CKD, GERD, HTN, HLP, SVT, and those as below. Past medical history, appointments, medications, allergies reviewed. Previous Medical History PAST MEDICAL HISTORY Diagnosis Date Anxiety 11/16/2012 Arrhythmia 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 07/06/2018 Basal cell carcinoma 12/02/2021 BPH (benign prostatic hyperplasia) s/p removal Chronic insomnia 02/24/2019 Controlled type 2 diabetes mellitus with stage 3 chronic kidney disease, without long-term current use of insulin ([facility]) 02/24/2019 Decreased libido 01/30/2018 Degenerative retinal drusen of both eyes 05/30/2015 ED (erectile dysfunction) 05/20/2021 Essential hypertension, benign 06/06/2006 Ex-smoker 05/20/2021 Started age 16, up to 2 PPD quit age 21 Gastroesophageal reflux disease with esophagitis without hemorrhage 05/20/2021 Herniated lumbar intervertebral disc History of depression Iron deficiency anemia 06/21/2020 Irritable bowel syndrome with both constipation and diarrhea 07/31/2021 Leg cramps 01/30/2018 Low testosterone in male 06/21/2020 Lumbar radiculopathy 02/24/2019 Malignant melanoma of torso excluding breast ([facility]) 02/11/2020 Mixed hyperlipidemia 03/20/2013 Nuclear sclerotic cataract of both eyes 05/30/2015 Peripheral retinal degeneration, paving stone, bilateral 09/09/2017 Posterior vitreous detachment of left eye 08/31/2016 Posterior vitreous detachment of right eye 09/09/2017 Renal cyst, right 08/10/2021 Simple, benign US 07/2021 Rotator cuff tear, left Senile nuclear sclerosis 05/17/2017 Senile nuclear sclerosis, bilateral 09/09/2017 SVT (supraventricular tachycardia) ([facility]) 05/20/2021 Treated with Ablation: 2013 Type 2 diabetes mellitus with retinopathy, without long-term current use of insulin ([facility]) 09/09/2017 Uncontrolled type 2 diabetes mellitus with stage 3 chronic kidney disease, without long-term current use of insulin 01/30/2018 Vitreous syneresis of both eyes 05/30/2015 Previous Surgical History PAST SURGICAL HISTORY Procedure Laterality Date COLONOSCOPY 2011 COLONOSCOPY FLX DX W/COLLJ SPEC WHEN PFRMD 08/21/2018 repeat 5 years ESOPHAGOGASTRODUODENOSCOPY TRANSORAL DIAGNOSTIC 08/21/2018 repeat 2 years FASCT PALM W/WO Z-PLASTY TISSUE REARGMT/SKN GRFT Left 01/05/2018 A1 sánchez release ring finger HEART SURGERY HX LAPS PROSTECT RETROPUBIC RAD W/NRV SPARING ROBOT 02/02/2019 for enlarged prostate PAST SURGICAL HISTORY OF 1999 rotator cuff left PAST SURGICAL HISTORY OF 2013 ablation, SVT TONSILLECTOMY HX Family History FAMILY HISTORY Problem Relation Age of Onset other (cancer, lung) Mother Alzheimer's Disease Father No Known Problems Sister Heart Attack Brother No Known Problems Maternal Grandmother No Known Problems Maternal Grandfather No Known Problems Paternal Grandmother No Known Problems Paternal Grandfather Patient Allergies ALLERGIES Allergen Reactions Bee Sting Anaphylaxis Amitriptyline Intolerance Did not tolerate. Tramadol Vomiting Current Medications Current Outpatient Medications on File Prior to Visit Medication Sig EPINEPHrine (AUVI-Q) 0.3 mg/0.3 mL auto-injector Inject 0.3 mL intramuscularly as needed. esomeprazole (NEXIUM) 40 mg capsule Take 1 capsule by mouth once daily. metFORMIN (GLUCOPHAGE) 1,000 mg tablet Take 1 tablet by mouth twice daily with meals. traZODone (DESYREL) 100 mg tablet Take 1 tablet by mouth daily at bedtime. Insulin Syringe-Needle U-100 1 mL 29 gauge x 1/2 1 Each as needed. For Intercavernal Injections pseudoephedrine (SUDAFED) 30 mg tablet Take Four 4 (30 mg) Tablets for an erection lasting more than 2 hours. If not improved in 1 hour MUST go to ER phentolamine-alprostadil 0.5 mg - 20 mcg/mL injection (CPD) Inject 20 units into the intracavernosal region of the penis erythromycin (ROMYCIN) 5 mg/gram (0.5 %) ophthalmic ointment Use 1 application in the right eye three times daily. dulaglutide (TRULICITY) 1.5 mg/0.5 mL pen injector Inject 1.5 mg subcutaneously one time a week. Inject once per week. Discard Pen After fluticasone (FLONASE) 50 mcg/actuation nasal spray Use 2 Sprays in each nostril once daily. Rinse mouth after use. losartan (COZAAR) 100 mg tablet Take 1 tablet by mouth once daily. rosuvastatin (CRESTOR) 5 mg tablet Take 1 tablet by mouth daily at bedtime. carvedilol (COREG) 25 mg tablet Take 1 tablet by mouth twice daily. Per Cardio, Dr. Schneider amLODIPine (NORVASC) 10 mg tablet Take 1 tablet by mouth once daily. Per Cardio, Dr. Schneider blood sugar diagnostic (BLOOD GLUCOSE TEST) test strip Test blood sugar(s) 2 times daily. Dx: OtherDM Code E11.22 Insulin: Yes Lancets lancets Test blood sugar(s) 2 times daily. Dx: Other DM Code E11.22 Insulin: Yes hydrOXYzine HCl (ATARAX) 10 mg tablet Take 1 tablet by mouth three times daily as needed for anxiety. Tadalafil (CIALIS) 20 mg tab(s) Take 1 tablet by mouth once daily. As needed (Patient not taking: Reported on 03/31/2022 ) cyclobenzaprine (FLEXERIL) 10 mg tablet Take 1 tablet by mouth three times daily as needed. docusate sodium (COLACE) 100 mg capsule Take 1 capsule by mouth twice daily as needed for Constipation. No current facility-administered medications on file prior to visit. Social History Social History Tobacco Use Smoking status: Former Smoker Smokeless tobacco: Never Used Tobacco comment: quit around 1983 Vaping Use Vaping Use: Never used Substance Use Topics Alcohol use: Yes Comment: seldom beer Drug use: No Review of Symptoms REVIEW OF SYSTEMS See HPI EXAM: BP 128/84 (BP Site: Left Arm, BP Position: Sitting, BP Cuff Size: Regular Adult) Pulse 64 Resp 16 Ht 174 cm (5' 8.5) Wt 88.9 kg (196 lb) BMI 29.37 kg/m General Appearance: Well appearing, alert, in no acute distress, well-hydrated, well nourished.. Back:no pain to palpation of vertebrae, no muscle tenderness, reflexes are 2+ and symmetric, motor and sensory are normal, negative SLR test was normal. Extremities: No deformities, edema, skin discoloration. Musculoskeletal: Spine range of motion normal. Muscular strength intact, No joint swelling, deformity, or tenderness. Peripheral Pulses: Normal. Neurologic: Gait normal. Reflexes normal and symmetric. Sensation to light touch intact.. Health Maintenance List BP CONTROLLED (<130/80) Never done COVID-19 VACCINE(3 - Booster for Pfizer series) due on 07/03/2021 ADVANCE DIRECTIVE DISCUSSION Never done SHINGRIX VACCINE(1 of 2) due on 05/20/2022 INFLUENZA(1) due on 07/01/2022 HBA1C due on 10/02/2022 HEMOGLOBIN/HEMATOCRIT due on 12/12/2022 PNEUMOCOCCAL: 65+(3 - PPSV23 or PCV20) due on 12/30/2022 DILATED RETINAL EXAM due on 01/05/2023 DIABETIC FOOT EXAM due on 02/02/2023 ANNUAL PCP TEAM CHRONIC DISEASE VISIT due on 03/16/2023 URINE ALBUMIN:CREATININE RATIO due on 04/02/2023 LDL CHOLESTEROL due on 04/02/2023 SERUM CREATININE due on 04/02/2023 COLORECTAL CANCER SCREENING due on 08/21/2023 PROSTATE CANCER SCREENING DISCUSSION due on 12/12/2026 DTAP,TDAP,TD(2 - Td or Tdap) due on 03/13/2027 ABDOMINAL AORTIC ANEURYSM SCREENING Completed HEPATITIS C SCREENING Completed DEPRESSION SCREENING Discontinued Data reviewed A/P ASSESSMENT/PLAN: 1. Burning sensation of foot - ICD9: 782.0, ICD10: R20.8 (primary diagnosis) check - PVR LEG W/EXC MADDY VAS LAB - VITAMIN B12 BLOOD - TSH BLD - CBC + DIFF - T4 FREE/FREE THYROX - FOLATE SERUM 2. Numbness and tingling of foot - ICD9: 782.0, ICD10: R20.0, R20.2 Check - PVR LEG W/EXC MADDY VAS LAB - VITAMIN B12 BLOOD - TSH BLD - CBC + DIFF - T4 FREE/FREE THYROX - FOLATE SERUM - check NCS/EMG 3. Pain in both lower extremities - ICD9: 729.5, ICD10: M79.604, M79.605 Check - PVR LEG W/EXC MADDY [facility] 4. Foot pain, bilateral - ICD9: 729.5, ICD10: M79.671, M79.672 Check - PVR LEG W/EXC MADDY VAS LAB Cruz Prado MD documented in this encounterAv[facility] Miscellaneous Notes* Telephone Encounter - Pam Oviedo - 03/31/2022 10:43 AM EDT 06-01-2022 COLON EGD [facility] documented in this encounterAv[facility]06-[facility] History of Present illness Narrative* Izabela Langford PA-C - 03/31/2022 9:58 AM EDT HISTORY AND PHYSICAL Dar Rose 1955 REFERRING PHYSICIAN: Anette Arreola PA-C CHIEF COMPLAINT: Consult (colonoscopy, EGD) HPI: The patient is a 66 year old male referred for endoscopy. Dar notes a history of Matthew's esophagus and is due for surveillance EGD. Patient also notes intermittent abdominal pain which is relieved with having a bowel movement. He states this is located deep to the area where he had prior melanoma excision on his abdomen. Patient denies any change in bowel habits, weight changes, blood in stools, black tarry stools. Denies family history of colon issues. The patient notes no upper GI complaints. Dar has undergone prior endoscopy. Most recent EGD and colonoscopy 08/21/[address] Adame under conscious sedation with findings of short-segment Matthew's, negative for dysplasia, and adenomatouscolon polyp. Patient's past medical history is significant for type II diabetes mellitus, hypertension, depression, IBS, SVT. Patient follows with Dr. Prado in primary care for his chronic medical conditions. Denies chest pain, shortness of breath or recent hospitalizations. Denies problems with sedation in the past. PAST MEDICAL HISTORY Diagnosis Date Anxiety 11/16/2012 Arrhythmia 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 07/06/2018 Basal cell carcinoma 12/02/2021 BPH (benign prostatic hyperplasia) s/p removal Chronic insomnia 02/24/2019 Controlled type 2 diabetes mellitus with stage 3 chronic kidney disease, without long-term current use of insulin (HCC) 02/24/2019 Decreased libido 01/30/2018 Degenerative retinal drusen of both eyes 05/30/2015 ED (erectile dysfunction) 05/20/2021 Essential hypertension, benign 06/06/2006 Ex-smoker 05/20/2021 Started age 16, up to 2 PPD quit age 21 Gastroesophageal reflux disease with esophagitis without hemorrhage 05/20/2021 Herniated lumbar intervertebral disc History of depression Iron deficiency anemia 06/21/2020 Irritable bowel syndrome with both constipation and diarrhea 07/31/2021 Leg cramps 01/30/2018 Low testosterone in male 06/21/2020 Lumbar radiculopathy 02/24/2019 Malignant melanoma of torso excluding breast (HCC) 02/11/2020 Mixed hyperlipidemia 03/20/2013 Nuclear sclerotic cataract of both eyes 05/30/2015 Peripheral retinal degeneration, paving stone, bilateral 09/09/2017 Posterior vitreous detachment of left eye 08/31/2016 Posterior vitreous detachment of right eye 09/09/2017 Renal cyst, right 08/10/2021 Simple, benign US 07/2021 Rotator cuff tear, left Senile nuclear sclerosis 05/17/2017 Senile nuclear sclerosis, bilateral 09/09/2017 SVT (supraventricular tachycardia) ([facility]) 05/20/2021 Treated with Ablation: 2013 Type 2 diabetes mellitus with retinopathy, without long-term current use of insulin (HCC) 09/09/2017 Uncontrolled type 2 diabetes mellitus with stage 3 chronic kidney disease, without long-term current use of insulin 01/30/2018 Vitreous syneresis of both eyes 05/30/2015 PAST SURGICAL HISTORY Procedure Laterality Date COLONOSCOPY 2011 COLONOSCOPY FLX DX W/COLLJ SPEC WHEN PFRMD 08/21/2018 repeat 5 years ESOPHAGOGASTRODUODENOSCOPY TRANSORAL DIAGNOSTIC 08/21/2018 repeat 2 years FASCT PALM W/WO Z-PLASTY TISSUE REARGMT/SKN GRFT Left 01/05/2018 A1 sánchez release ring finger HEART SURGERY HX LAPS PROSTECT RETROPUBIC RAD W/NRV SPARING ROBOT 02/02/2019 for enlarged prostate PAST SURGICAL HISTORY OF 1999 rotator cuff left PAST SURGICAL HISTORY OF 2013 ablation, SVT TONSILLECTOMY HX Current Outpatient Medications Medication Sig EPINEPHrine (AUVI-Q) 0.3 mg/0.3 mL auto-injector Inject 0.3 mL intramuscularly as needed. esomeprazole (NEXIUM) 40 mg capsule Take 1 capsule by mouth once daily. metFORMIN (GLUCOPHAGE) 1,000 mg tablet Take 1 tablet by mouth twice daily with meals. traZODone (DESYREL) 100 mg tablet Take 1 tablet by mouth daily at bedtime. Insulin Syringe-Needle U-100 1 mL 29 gauge x 1/2 1 Each as needed. For Intercavernal Injections pseudoephedrine (SUDAFED) 30 mg tablet Take Four 4 (30 mg) Tablets for an erection lasting more than 2 hours. If not improved in 1 hour MUST go to ER phentolamine-alprostadil 0.5 mg - 20 mcg/mL injection (CPD) Inject 20 units into the intracavernosal region of the penis erythromycin (ROMYCIN) 5 mg/gram (0.5 %) ophthalmic ointment Use 1 application in the right eye three times daily. dulaglutide (TRULICITY) 1.5 mg/0.5 mL pen injector Inject 1.5 mg subcutaneously one time a week. Inject once per week. Discard Pen After fluticasone (FLONASE) 50 mcg/actuation nasal spray Use 2 Sprays in each nostril once daily. Rinse mouth after use. losartan (COZAAR) 100 mg tablet Take 1 tablet by mouth once daily. rosuvastatin (CRESTOR) 5 mg tablet Take 1 tablet by mouth daily at bedtime. carvedilol (COREG) 25 mg tablet Take 1 tablet by mouth twice daily. Per Dr. Wyatt Gay amLODIPine (NORVASC) 10 mg tablet Take 1 tablet by mouth once daily. Per CardioDr. Schneider blood sugar diagnostic (BLOOD GLUCOSE TEST) test strip Test blood sugar(s) 2 times daily. Dx: OtherDM Code E11.22 Insulin: Yes Lancets lancets Test blood sugar(s) 2 times daily. Dx: Other DM Code E11.22 Insulin: Yes hydrOXYzine HCl (ATARAX) 10 mg tablet Take 1 tablet by mouth three times daily as needed for anxiety. cyclobenzaprine (FLEXERIL) 10 mg tablet Take 1 tablet by mouth three times daily as needed. docusate sodium (COLACE) 100 mg capsule Take 1 capsule by mouth twice daily as needed for Constipation. Tadalafil (CIALIS) 20 mg tab(s) Take 1 tablet by mouth once daily. As needed (Patient not taking: Reported on 03/31/2022 ) No current facility-administered medications for this visit. ALLERGIES: Bee Sting, Amitriptyline, and Tramadol PERSONAL HISTORY: Social History Tobacco Use Smoking status: Former Smoker Smokeless tobacco: Never Used Tobacco comment: quit around 1983 Vaping Use Vaping Use: Never used Substance Use Topics Alcohol use: Yes Comment: seldom beer Drug use: No FAMILY HISTORY: FAMILY HISTORY Problem Relation Age of Onset other (cancer, lung) Mother Alzheimer's Disease Father No Known Problems Sister Heart Attack Brother No Known Problems Maternal Grandmother No Known Problems Maternal Grandfather No Known Problems Paternal Grandmother No Known Problems Paternal Grandfather REVIEW OF SYMPTOMS: The review of systems data was entered by the nurse and reviewed by me Nursing Notes: Parvin Perera LPN 03/31/2022 9:56 AM Signed REVIEW OF SYSTEMS: General: The patient notes fatigue, denies weight loss, denies weight gain, denies feeling hot, anddenies feelings of cold. Eyes: The patient denies glaucoma, denies eye injury/surgery, wears glasses or contacts. Ear/Nose/Throat: The patient denies allergies, denies hayfever, denies ear infections, and denies bloody noses. Cardiovascular: The patient denies chest pain, denies heart disease, notes high blood pressure,denies cardiac stent, denies prior heart attack, denies irregular heart beat, denies high cholesterol, denies poor circulation, denies heart failure, other cardiac issues, denies claudication, denies coldfeet, denies peripheral arterial stent. Respiratory: The patient denies tuberculosis, denies pneumonia, denies frequent cough, denies pulmonary embolism, denies shortness of breath, and denies coughing up blood. Gastrointestinal: The patient denies difficulty swallowing, notes acid reflux, denies ulcers, denies vomiting, denies jaundice/hepatitis, denies gallbladder problems, denies black or tarry stools, denies hemorrhoids, denies bleeding from rectum, denies diverticulitis, notes constipation, denies diarrhea, denies loss of stool control, and denies hernias. Kidney/Bladder: The patient notes kidney stones, denies urine infections, and denies bloody urine. Skin: The patient notes a history of skin cancer, denies bleeding/changing moles, and denies a history of skin rash. Neurologic: The patient denies a history of epilepsy/convulsions, denies headaches, denies head/spinal injuries, and denies stroke/TIA. Psychiatric: The patient denies psychiatric medications, denies depression, and denies voices, denies substance abuse. Endocrine: The patient denies thyroid disorders, notes diabetes, and denies hormonal problems. Hematologic: The patient denies a history of bruising, denies bleeding, and denies anemia, denies blood clots. Infections: The patient denies a history of measles and mumps, notes rheumatic fever, and denies sexually transmitted diseases. Musculoskeletal: The patient denies back pain/injury, denies back problems, notes sciatica, denies knee/foot trouble, denies arthritis, or denies gout. When was patient's last Mammogram screening? N/A Last Colonoscopy: 2018 Parvin Perera LPN I have confirmed and edited as necessary, the PFSH and ROS obtained by others. Izabela Langford PA-C PHYSICAL EXAMINATION: General: The patient is 66 year old male, well nourished, well hydrated in no acute distress. The patient is oriented to time, place, and person. VITALS: Blood pressure 142/76, pulse 82, temperature 36.8 C (98.2 F), height 177.8 cm (5' 10), weight 88.5 kg (195 lb), SpO2 99 %. Body mass index is 27.98 kg/m . HEENT: Normal cephalic, ataumatic, pupils are equally round, sclera are anicteric, mucous membranesare moist, oropharynx is clear. Neck has no masses, asymmetry or lymphadenopathy. Respiratory: Clear to auscultation and percussion. Normal respiratory excursion and pattern. Cardiac: Examination is regular rate and rhythm. Normal S1/S2 Abdominal exam: +healed scar right abdomen. Soft, nontender, with no palpable masses. No hepatosplenomegaly. No palpable hernias. Extremities: no clubbing, cyanosis or edema. No adenopathy. LABORATORY VALUES: As Noted RADIOLOGIC STUDIES: As Noted Assessment IMPRESSION: Matthew's esophagus due for surveillance. History of colon polyps PLAN: I have reviewed my findings with the surgeon. Dr. Ca also evaluated the patient and participated in plan. Will plan for upper and lower endoscopy. We discussed the risks and benefits of the planned endoscopy. I have informed the patient that complications can occur including failure to complete the endoscopy and perforation. The patient had the opportunity to ask questions concerning the planned endoscopy. My staff has also explained the procedure to the patient in understandable terms and has given the patient printed material concerning the procedure. The patient freely consents to surgery. The patient was offered a surgery/procedure at a [facility] facility. I have counseled the patient regarding the risk of exposure to and/or potential harm posed by the COVID-19 virus with having a surgery/procedure at this time versus the risk of delaying the surgery/procedure. It is not possible to know either the risk of delaying the surgery or procedure or chance of getting an infection with perfect accuracy, but a joint decision was made between the patient and myself to proceed at this time with endoscopy. I plan to use Golytely bowel preparation I have explained to the patient the difference between IV conscious sedation and MAC anesthesia - and I have offered either, according to the patient's wishes. I have explained that with IV conscioussedation there is no anesthesia provider available and therefore there is a limitation of the amount of IV medications that can be given and that the patient may wake up in the middle of the procedure and/or experience pain/discomfort during the procedure. Further discussion was done and the patient was given the opportunity to ask questions and all questions were answered. The patient chooses IVconscious sedation Diagnoses: (Z86.010) History of colonic polyps (primary encounter diagnosis) (R10.9) Abdominal pain, unspecified abdominal location (K22.70) 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 (Z85.820) History of malignant melanoma Consultation requested by Anette Arreola PA-C for an opinion regarding history of Matthew's esophagus as well as abdominal discomfort and history of polyps. My final recommendations will be communicated back to the requesting physician by way of shared Medical record or letter to requesting physician via [place] mail. Izabela Langford PA-C documented in this encounterAvita [facility] Nurse Note* Parvin Perera LPN - 03/31/2022 9:54 AM EDT REVIEW OF SYSTEMS: General: The patient notes fatigue, denies weight loss, denies weight gain, denies feeling hot, anddenies feelings of cold. Eyes: The patient denies glaucoma, denies eye injury/surgery, wears glasses or contacts. Ear/Nose/Throat: The patient denies allergies, denies hayfever, denies ear infections, and denies bloody noses. Cardiovascular: The patient denies chest pain, denies heart disease, notes high blood pressure,denies cardiac stent, denies prior heart attack, denies irregular heart beat, denies high cholesterol, denies poor circulation, denies heart failure, other cardiac issues, denies claudication, denies coldfeet, denies peripheral arterial stent. Respiratory: The patient denies tuberculosis, denies pneumonia, denies frequent cough, denies pulmonary embolism, denies shortness of breath, and denies coughing up blood. Gastrointestinal: The patient denies difficulty swallowing, notes acid reflux, denies ulcers, denies vomiting, denies jaundice/hepatitis, denies gallbladder problems, denies black or tarry stools, denies hemorrhoids, denies bleeding from rectum, denies diverticulitis, notes constipation, denies diarrhea, denies loss of stool control, and denies hernias. Kidney/Bladder: The patient notes kidney stones, denies urine infections, and denies bloody urine. Skin: The patient notes a history of skin cancer, denies bleeding/changing moles, and denies a history of skin rash. Neurologic: The patient denies a history of epilepsy/convulsions, denies headaches, denies head/spinal injuries, and denies stroke/TIA. Psychiatric: The patient denies psychiatric medications, denies depression, and denies voices, denies substance abuse. Endocrine: The patient denies thyroid disorders, notes diabetes, and denies hormonal problems. Hematologic: The patient denies a history of bruising, denies bleeding, and denies anemia, denies blood clots. Infections: The patient denies a history of measles and mumps, notes rheumatic fever, and denies sexually transmitted diseases. Musculoskeletal: The patient denies back pain/injury, denies back problems, notes sciatica, denies knee/foot trouble, denies arthritis, or denies gout. When was patient's last Mammogram screening? N/A Last Colonoscopy: 2018 Parvin Perera LPN documented [facility] this [facility] History of Present illness Narrative* Anette Arreola PA-C - 03/16/2022 2:06 PM EDT Chief Complaint Patient presents with: Fatigue HPI Dar Rose is a 66 year old male who presents here today for Above Complaints.. Patient notes concerns for ALEXI. States he wakes up tired and is fatigued all day. He wakes up 2-3 times per night. Struggles with getting back to sleep at times. STOP BANG Questionnaire 1. Snoring Do you snore loudly (louder than talking or loud enough to be heard through closed doors)? YES 2. Tired Do you often feel tired, fatigued, or sleepy during daytime? YES 3. Observed Has anyone observed you stop breathing during your sleep? NO 4. Blood Pressure Do you have or are you being treated for high blood pressure? YES 5. BMI BMI more than 35 kg/m2? NO 6. Age Age over 50 yr old? YES 7. Neck circumference Neck circumference greater than 40 cm? YES 8. Gender Gender male? YES * Neck circumference is measured by staff High risk of ALEXI: answering yes to three or more items Low risk of ALEXI: answering yes to less than three items Past medical history, appointments, medications, allergies reviewed. Previous Medical History PAST MEDICAL HISTORY Diagnosis Date Anxiety 11/16/2012 Arrhythmia 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 07/06/2018 Basal cell carcinoma 12/02/2021 BPH (benign prostatic hyperplasia) s/p removal Chronic insomnia 02/24/2019 Controlled type 2 diabetes mellitus with stage 3 chronic kidney disease, without long-term current use of insulin (HCC) 02/24/2019 Decreased libido 01/30/2018 Degenerative retinal drusen of both eyes 05/30/2015 ED (erectile dysfunction) 05/20/2021 Essential hypertension, benign 06/06/2006 Ex-smoker 05/20/2021 Started age 16, up to 2 PPD quit age 21 Gastroesophageal reflux disease with esophagitis without hemorrhage 05/20/2021 Herniated lumbar intervertebral disc History of depression Iron deficiency anemia 06/21/2020 Irritable bowel syndrome with both constipation and diarrhea 07/31/2021 Leg cramps 01/30/2018 Low testosterone in male 06/21/2020 Lumbar radiculopathy 02/24/2019 Malignant melanoma of torso excluding breast (HCC) 02/11/2020 Mixed hyperlipidemia 03/20/2013 Nuclear sclerotic cataract of both eyes 05/30/2015 Peripheral retinal degeneration, paving stone, bilateral 09/09/2017 Posterior vitreous detachment of left eye 08/31/2016 Posterior vitreous detachment of right eye 09/09/2017 Renal cyst, right 08/10/2021 Simple, benign US 07/2021 Rotator cuff tear, left Senile nuclear sclerosis 05/17/2017 Senile nuclear sclerosis, bilateral 09/09/2017 SVT (supraventricular tachycardia) ([facility]) 05/20/2021 Treated with Ablation: 2013 Type 2 diabetes mellitus with retinopathy, without long-term current use of insulin ([facility]) 09/09/2017 Uncontrolled type 2 diabetes mellitus with stage 3 chronic kidney disease, without long-term current use of insulin 01/30/2018 Vitreous syneresis of both eyes 05/30/2015 Previous Surgical History PAST SURGICAL HISTORY Procedure Laterality Date COLONOSCOPY 2011 COLONOSCOPY FLX DX W/COLLJ SPEC WHEN PFRMD 08/21/2018 repeat 5 years ESOPHAGOGASTRODUODENOSCOPY TRANSORAL DIAGNOSTIC 08/21/2018 repeat 2 years FASCT PALM W/WO Z-PLASTY TISSUE REARGMT/SKN GRFT Left 01/05/2018 A1 sánchez release ring finger HEART SURGERY HX LAPS PROSTECT RETROPUBIC RAD W/NRV SPARING ROBOT 02/02/2019 for enlarged prostate PAST SURGICAL HISTORY OF 1999 rotator cuff left PAST SURGICAL HISTORY OF 2013 ablation, SVT TONSILLECTOMY HX Family History FAMILY HISTORY Problem Relation Age of Onset other (cancer, lung) Mother Alzheimer's Disease Father No Known Problems Sister Heart Attack Brother No Known Problems Maternal Grandmother No Known Problems Maternal Grandfather No Known Problems Paternal Grandmother No Known Problems Paternal Grandfather Patient Allergies ALLERGIES Allergen Reactions Bee Sting Anaphylaxis Amitriptyline Intolerance Did not tolerate. Tramadol Vomiting Current Medications Current Outpatient Medications on File Prior to Visit Medication Sig esomeprazole (NEXIUM) 40 mg capsule Take 1 capsule by mouth once daily. metFORMIN (GLUCOPHAGE) 1,000 mg tablet Take 1 tablet by mouth twice daily with meals. traZODone (DESYREL) 100 mg tablet Take 1 tablet by mouth daily at bedtime. Insulin Syringe-Needle U-100 1 mL 29 gauge x 1/2 1 Each as needed. For Intercavernal Injections pseudoephedrine (SUDAFED) 30 mg tablet Take Four 4 (30 mg) Tablets for an erection lasting more than 2 hours. If not improved in 1 hour MUST go to ER phentolamine-alprostadil 0.5 mg - 20 mcg/mL injection (CPD) Inject 20 units into the intracavernosal region of the penis erythromycin (ROMYCIN) 5 mg/gram (0.5 %) ophthalmic ointment Use 1 application in the right eye three times daily. dulaglutide (TRULICITY) 1.5 mg/0.5 mL pen injector Inject 1.5 mg subcutaneously one time a week. Inject once per week. Discard Pen After fluticasone (FLONASE) 50 mcg/actuation nasal spray Use 2 Sprays in each nostril once daily. Rinse mouth after use. losartan (COZAAR) 100 mg tablet Take 1 tablet by mouth once daily. carvedilol (COREG) 25 mg tablet Take 1 tablet by mouth twice daily. Per CardioDr. Schneider amLODIPine (NORVASC) 10 mg tablet Take 1 tablet by mouth once daily. Per CardioDr. Schneider blood sugar diagnostic (BLOOD GLUCOSE TEST) test strip Test blood sugar(s) 2 times daily. Dx: OtherDM Code E11.22 Insulin: Yes Lancets lancets Test blood sugar(s) 2 times daily. Dx: Other DM Code E11.22 Insulin: Yes EPINEPHrine (AUVI-Q) 0.3 mg/0.3 mL auto-injector Inject 0.3 mL intramuscularly as needed. hydrOXYzine HCl (ATARAX) 10 mg tablet Take 1 tablet by mouth three times daily as needed for anxiety. cyclobenzaprine (FLEXERIL) 10 mg tablet Take 1 tablet by mouth three times daily as needed. docusate sodium (COLACE) 100 mg capsule Take 1 capsule by mouth twice daily as needed for Constipation. rosuvastatin (CRESTOR) 5 mg tablet Take 1 tablet by mouth daily at bedtime. (Patient not taking: Reported on 02/19/2022 ) Tadalafil (CIALIS) 20 mg tab(s) Take 1 tablet by mouth once daily. As needed (Patient not taking: Reported on 02/16/2022 ) No current facility-administered medications on file prior to visit. Social History Social History Tobacco Use Smoking status: Former Smoker Smokeless tobacco: Never Used Tobacco comment: quit around 1983 Vaping Use Vaping Use: Never used Substance Use Topics Alcohol use: Yes Comment: seldom beer Drug use: No Review of Symptoms REVIEW OF SYSTEMS see hpi EXAM: BP 130/76 (BP Site: Left Arm, BP Position: Sitting, BP Cuff Size: Large Adult) Pulse 72 Temp 36.4 C (97.5 F) Resp 18 Wt 88 kg (194 lb) BMI 27.84 kg/m General Appearance: Well appearing, alert, in no acute distress, well-hydrated, well nourished.. Lungs: Lungs clear to auscultation. No wheezing, rhonchi, rales.. Heart: RRR without murmur, gallop, or rubs. No ectopy. Health Maintenance List BP CONTROLLED (<130/80) Never done COVID-19 VACCINE(3 - Booster for Pfizer series) due on 07/03/2021 ADVANCE DIRECTIVE DISCUSSION Never done DILATED RETINAL EXAM due on 02/03/2022 URINE ALBUMIN:CREATININE RATIO due on 02/16/2022 SHINGRIX VACCINE(1 of 2) due on 05/20/2022 HBA1C due on 05/06/2022 LDL CHOLESTEROL due on 11/06/2022 ANNUAL PCP TEAM CHRONIC DISEASE VISIT due on 11/06/2022 SERUM CREATININE due on 11/06/2022 HEMOGLOBIN/HEMATOCRIT due on 12/12/2022 PNEUMOVAX AGE 65 AND OVER WITH 5YR LOOKBACK(1) due on 12/30/2022 DIABETIC FOOT EXAM due on 02/02/2023 COLORECTAL CANCER SCREENING due on 08/21/2023 PROSTATE CANCER SCREENING DISCUSSION due on 12/12/2026 DTAP,TDAP,TD(2 - Td or Tdap) due on 03/13/2027 ABDOMINAL AORTIC ANEURYSM SCREENING Completed INFLUENZA Completed HEPATITIS C SCREENING Completed MENINGOCOCCAL CONJUGATE Aged Out DEPRESSION SCREENING Discontinued Data reviewed ASSESSMENT/PLAN: 1. Hypersomnia - ICD9: 780.54, ICD10: G47.10 (primary diagnosis) Set up for sleep study at [facility] - POLYSOMNOGRAM (PSG) 2. Fatigue, unspecified type - ICD9: 780.79, ICD10: R53.83 As above - POLYSOMNOGRAM (PSG) 3. Snoring - ICD9: 786.09, ICD10: R06.83 As above - POLYSOMNOGRAM (PSG) 4. 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 - ICD9: 530.85, ICD10: K22.70 - CONSULT TO GENERAL SURGERY 5. Abdominal pain, unspecified abdominal location - ICD9: 789.00, ICD10: R10.9 Patient requesting colonoscopy - CONSULT TO GENERAL SURGERY 6. Mixed hyperlipidemia - ICD9: 272.2, ICD10: E78.2 - LIPID PANEL, NONFASTING 7. Essential hypertension, benign - ICD9: 401.1, ICD10: I10 - COMP METABOLIC PANEL - URINALYSIS, WITH MICROSCOPIC 8. Controlled type 2 diabetes mellitus with stage 3 chronic kidney disease, without long-term current use of insulin (HCC) - ICD9: 250.40, 585.3, ICD10: E11.22, N18.30 - HGB A1C - COMP METABOLIC PANEL - URINALYSIS, WITH MICROSCOPIC - ALBUMIN/CREAT RATIO RND UR 9. Type 2 diabetes mellitus with retinopathy, without long-term current use of insulin, macular edema presence unspecified, unspecified laterality, unspecified retinopathy severity (HCC) - ICD9: 250.50, 362.01, ICD10: E11.319 Patient to keep f/u as scheduled. Labs prior. Order for sleep study sent to [facility]. Anette Arreola PA-C documented in this encounterAv[facility] History of Present illness Narrative* Asim Denis APRN.[facility] - 02/19/2022 5:07 PM EDT CC: Patient presents with: Headache: sinus pressure w/ drainage (LT) ear irritation Follow Up: intermittent SOB, denied chest pain, BS 132 HPI: Dar Rose is a 66 year old male who presents to the office with complaint of head congestion and cough, nonproductive for 5 weeks. Symptoms are worsening Associated symptoms includes facial pain/pressure and sneezing. Denies fever, nausea, vomiting and diarrhea. Treatments tried include nothing so far. with no relief of symptoms. Sick contacts: unknown. History of asthma, frequent episodes of bronchitis, chronic bronchitis, bronchiectasis or COPD: No Smoker: No Seasonal/environmental allergies: No The ROS is otherwise negative. The patient's pmh, medications, allergies, and past visits are reviewed. PHYSICAL EXAM: BP 130/78 Pulse 71 Temp 36.7 C (98 F) Resp 20 Wt 90.1 kg (198 lb 9.6 oz) SpO2 96% BMI 28.50 kg/m General appearance: alert, cooperative, pleasant, in no acute distress Head: Normocephalic Eyes: EOM's intact, conjunctiva pink and moist, no icterus, sclera white, non-injected Ears: Right ear: External ear/canal- Normal, TM - clear with good landmarks. Left ear: External ear/canal- Normal, TM - clear with good landmarks Oropharynx:moist without lesions, No erythema, exudates or tonsillar hypertrophy. Heart: Negative. RRR without obvious murmur, gallop, or rubs. No ectopy. Lungs: clear to auscultation, without rales or wheeze, good air exchange PAST MEDICAL HISTORY Diagnosis Date Anxiety 11/16/2012 Arrhythmia 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 07/06/2018 Basal cell carcinoma 12/02/2021 BPH (benign prostatic hyperplasia) s/p removal Chronic insomnia 02/24/2019 Controlled type 2 diabetes mellitus with stage 3 chronic kidney disease, without long-term current use of insulin ([facility]) 02/24/2019 Decreased libido 01/30/2018 Degenerative retinal drusen of both eyes 05/30/2015 ED (erectile dysfunction) 05/20/2021 Essential hypertension, benign 06/06/2006 Ex-smoker 05/20/2021 Started age 16, up to 2 PPD quit age 21 Gastroesophageal reflux disease with esophagitis without hemorrhage 05/20/2021 Herniated lumbar intervertebral disc History of depression Iron deficiency anemia 06/21/2020 Irritable bowel syndrome with both constipation and diarrhea 07/31/2021 Leg cramps 01/30/2018 Low testosterone in male 06/21/2020 Lumbar radiculopathy 02/24/2019 Malignant melanoma of torso excluding breast (HCC) 02/11/2020 Mixed hyperlipidemia 03/20/2013 Nuclear sclerotic cataract of both eyes 05/30/2015 Peripheral retinal degeneration, paving stone, bilateral 09/09/2017 Posterior vitreous detachment of left eye 08/31/2016 Posterior vitreous detachment of right eye 09/09/2017 Renal cyst, right 08/10/2021 Simple, benign US 07/2021 Rotator cuff tear, left Senile nuclear sclerosis 05/17/2017 Senile nuclear sclerosis, bilateral 09/09/2017 SVT (supraventricular tachycardia) (HCC) 05/20/2021 Treated with Ablation: 2013 Type 2 diabetes mellitus with retinopathy, without long-term current use of insulin (HCC) 09/09/2017 Uncontrolled type 2 diabetes mellitus with stage 3 chronic kidney disease, without long-term current use of insulin 01/30/2018 Vitreous syneresis of both eyes 05/30/2015 PAST SURGICAL HISTORY Procedure Laterality Date COLONOSCOPY 2011 COLONOSCOPY FLX DX W/COLLJ SPEC WHEN PFRMD 08/21/2018 repeat 5 years ESOPHAGOGASTRODUODENOSCOPY TRANSORAL DIAGNOSTIC 08/21/2018 repeat 2 years FASCT PALM W/WO Z-PLASTY TISSUE REARGMT/SKN GRFT Left 01/05/2018 A1 sánchez release ring finger HEART SURGERY HX LAPS PROSTECT RETROPUBIC RAD W/NRV SPARING ROBOT 02/02/2019 for enlarged prostate PAST SURGICAL HISTORY OF 1999 rotator cuff left PAST SURGICAL HISTORY OF 2013 ablation, SVT TONSILLECTOMY HX ALLERGIES Bee Sting, Amitriptyline, and Tramadol MEDICATIONS esomeprazole (NEXIUM) 40 mg capsule Take 1 capsule by mouth once daily. metFORMIN (GLUCOPHAGE) 1,000 mg tablet Take 1 tablet by mouth twice daily with meals. traZODone (DESYREL) 100 mg tablet Take 1 tablet by mouth daily at bedtime. Insulin Syringe-Needle U-100 1 mL 29 gauge x 1/2 1 Each as needed. For Intercavernal Injections pseudoephedrine (SUDAFED) 30 mg tablet Take Four 4 (30 mg) Tablets for an erection lasting more than 2 hours. If not improved in 1 hour MUST go to ER phentolamine-alprostadil 0.5 mg - 20 mcg/mL injection (CPD) Inject 20 units into the intracavernosal region of the penis erythromycin (ROMYCIN) 5 mg/gram (0.5 %) ophthalmic ointment Use 1 application in the right eye three times daily. dulaglutide (TRULICITY) 1.5 mg/0.5 mL pen injector Inject 1.5 mg subcutaneously one time a week. Inject once per week. Discard Pen After fluticasone (FLONASE) 50 mcg/actuation nasal spray Use 2 Sprays in each nostril once daily. Rinse mouth after use. losartan (COZAAR) 100 mg tablet Take 1 tablet by mouth once daily. carvedilol (COREG) 25 mg tablet Take 1 tablet by mouth twice daily. Per CardioDr. Schneider amLODIPine (NORVASC) 10 mg tablet Take 1 tablet by mouth once daily. Per Cardio, Dr. Schneider blood sugar diagnostic (BLOOD GLUCOSE TEST) test strip Test blood sugar(s) 2 times daily. Dx: OtherDM Code E11.22 Insulin: Yes Lancets lancets Test blood sugar(s) 2 times daily. Dx: Other DM Code E11.22 Insulin: Yes EPINEPHrine (AUVI-Q) 0.3 mg/0.3 mL auto-injector Inject 0.3 mL intramuscularly as needed. hydrOXYzine HCl (ATARAX) 10 mg tablet Take 1 tablet by mouth three times daily as needed for anxiety. cyclobenzaprine (FLEXERIL) 10 mg tablet Take 1 tablet by mouth three times daily as needed. docusate sodium (COLACE) 100 mg capsule Take 1 capsule by mouth twice daily as needed for Constipation. amoxicillin-clavulanic acid (AUGMENTIN) 875-125 mg per tablet Take 1 tablet by mouth twice daily for 5 days. rosuvastatin (CRESTOR) 5 mg tablet Take 1 tablet by mouth daily at bedtime. Tadalafil (CIALIS) 20 mg tab(s) Take 1 tablet by mouth once daily. As needed FAMILY HISTORY Problem Relation Age of Onset other (cancer, lung) Mother Alzheimer's Disease Father No Known Problems Sister Heart Attack Brother No Known Problems Maternal Grandmother No Known Problems Maternal Grandfather No Known Problems Paternal Grandmother No Known Problems Paternal Grandfather Social History Tobacco Use Smoking status: Former Smoker Smokeless tobacco: Never Used Tobacco comment: quit around 1983 Vaping Use Vaping Use: Never used Substance Use Topics Alcohol use: Yes Comment: seldom beer Drug use: No ASSESSMENT/PLAN: 1. Head congestion - ICD9: 478.19, ICD10: R09.81 Prescription instructions reviewed with patient as applicable. Augmentin bid for 5 days. Potential red flag symptoms discussed with the patient. Reviewed appropriate action plan to take if red flag symptoms occur. Patient agreeable to treatment plan. Asim Denis APRN.SOCIAL MEDIA MANAGER documented in this encounterAvita [facility]04-[facility]22 Instructions* Patient Instructions* Asim Denis APRN.CNP - 02/19/2022 5:07 PM EDT 1.) Get more rest than you usually do - this will speed your recovery. If you push hard with your usual busy schedule, you will be sicker longer. 2.) Drink a lot of water - enough to make you urinate every 2-3 hours (your urine should be a lightyellow color). This helps thin the phlegm and sooth the airways. Gatorade (G2) is less in sugar andreplaces your electrolytes if not eating well. 3.) Run a cool mist humidifier in your bedroom on high with the door closed. This is a natural way to decongest, and it helps lessen scratchy throats, nasal stuffiness and coughs. 4.) For those without blood pressure concerns, take Sudafed as a decongestant (decreases stuffiness-lets drain), but realize that you will need to take it every 4-6 hours for several days. The lower dose is generally better tolerated (30mg)... Some people can make feel fast heart rate/jittery. You also may try anti-allergy pill like Claritin(loratidine) 10mg or yaneth, benadryl (makes sleepy) over the counter as directed to help with drippy nose. Mucinex 600- 1200mg twice daily(plain) may help thin secretions so they are easier to cough up. Those with high blood pressure and not with prostateproblems can try [id number] Coricidin HBP for congestion. You may find nasal sprays such as Flonase or Nasacort, saline nasal spray and/or Netti Pot may be beneficial 5.) Take ibuprofen or acetominophen every 4-6 hours for pain/aches as needed if not contraindicatedfor you. Antibiotic as directed per prescription If you should breakout in a rash, stop the medicine and call the office. Any antibiotic has the potential to cause diarrhea due to alteration in the normal bacterial jenny of the gut. This can be reduced by eating yogurt with active cultures or taking probiotics daily while on the medication. If diarrhea becomes severe (watery, large volumes or more than 3-4/day) call the office. Women may experience yeast vaginitis due to alteration in the vaginal jenny. Symptoms include vaginal itching, irritation, and often a clumpy white discharge. If this occurs, there are several effective over the counter remedies available, including one-dose treatments. If these are unsuccessful, call the office. Antibiotics may interfer with control. If you are on oral contraceptives, use another form of protection (condoms, foams, jellies, diaphragm) throught the end of whatever pill pack you are on in 10 days. If you are not improving in 3-5 days or are worsening follow up with PCP documented in this encounterAvita [facility]04-21-2022 Miscellaneous Notes* Telephone Encounter - Lurdes Hernandez Ma - 02/18/2022 5:09 PM EDT Addressed via refill request. Lurdes Hernandez Ma documented in this encounterAvita [facility]04-21-2022 Miscellaneous Notes* Telephone Encounter - Lurdes Hernandez Ma - 02/18/2022 5:01 PM EDT Last office visit: 11/06/21 F/u scheduled: 05/12/22 Lurdes Hernandez Ma documented in this encounterAvita [facility]04-19-2022 History of Present illness Narrative* eBar Menezes PA-C - 02/16/2022 10:22 AM EDT Images from the original note were not included. [facility] UROLOGY INTRACAVERNOUS TEACHING APPOINTMENT Patient : Dar Rose 1955 66 year old Diagnosis: Impotence Medications: Current Outpatient Medications Medication Sig phentolamine-alprostadil 0.5 mg - 20 mcg/mL injection (CPD) Inject 20 units into the intracavernosal region of the penis erythromycin (ROMYCIN) 5 mg/gram (0.5 %) ophthalmic ointment Use 1 application in the right eye three times daily. dulaglutide (TRULICITY) 1.5 mg/0.5 mL pen injector Inject 1.5 mg subcutaneously one time a week. Inject once per week. Discard Pen After fluticasone (FLONASE) 50 mcg/actuation nasal spray Use 2 Sprays in each nostril once daily. Rinse mouth after use. esomeprazole (NEXIUM) 40 mg capsule Take 1 capsule by mouth once daily. metFORMIN (GLUCOPHAGE) 1,000 mg tablet Take 1 tablet by mouth twice daily with meals. losartan (COZAAR) 100 mg tablet Take 1 tablet by mouth once daily. carvedilol (COREG) 25 mg tablet Take 1 tablet by mouth twice daily. Per CardioDr. Schneider amLODIPine (NORVASC) 10 mg tablet Take 1 tablet by mouth once daily. Per CardioDr. Schneider blood sugar diagnostic (BLOOD GLUCOSE TEST) test strip Test blood sugar(s) 2 times daily. Dx: OtherDM Code E11.22 Insulin: Yes Lancets lancets Test blood sugar(s) 2 times daily. Dx: Other DM Code E11.22 Insulin: Yes traZODone (DESYREL) 100 mg tablet Take 1 tablet by mouth daily at bedtime. EPINEPHrine (AUVI-Q) 0.3 mg/0.3 mL auto-injector Inject 0.3 mL intramuscularly as needed. hydrOXYzine HCl (ATARAX) 10 mg tablet Take 1 tablet by mouth three times daily as needed for anxiety. cyclobenzaprine (FLEXERIL) 10 mg tablet Take 1 tablet by mouth three times daily as needed. docusate sodium (COLACE) 100 mg capsule Take 1 capsule by mouth twice daily as needed for Constipation. rosuvastatin (CRESTOR) 5 mg tablet Take 1 tablet by mouth daily at bedtime. (Patient not taking: Reported on 02/16/2022 ) Tadalafil (CIALIS) 20 mg tab(s) Take 1 tablet by mouth once daily. As needed (Patient not taking: Reported on 02/16/2022 ) No current facility-administered medications for this visit. COGNITIVE ABILITY: Alert and oriented MOTIVATION TO LEARN: Eager FAMILY SUPPORT: Unable to assess - Family not present INSTRUCTION PROVIDED TO: Patient PATIENT LEARNS BEST BY: Individual Instruction Written Instruction - Hand-outs Verbal Instruction Demonstration FACTORS AFFECTING LEARNING: None PHYSICAL LIMITATIONS AFFECTING LEARNING: None METHOD OF INSTRUCTION: Individual instruction Written instruction - handouts Verbal instruction Demonstration-Hands on Learning EDUCATION TOPIC TEACHING POINTS: Survival Skills: History of Drug and 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 effects reviewed with patient. yes Discussed with patient to NEVER increase the dose without first calling.yes The Following Possible Complications were Reviewed: Bleeding yes Discomfort and resistance yes Infection yes Scarring yes Priapism yes Transient liver Abnormalities (papaverine only). yes Care of Medication discussed yes Anatomy of penis reviewed.yes Syringe and needle size reviewed, 29 gauge 1/2 inch U100. yes Sterility Emphasized:yes Syringe preparation discussed and demonstrated. yes Emphasized removing air bubbles. yes Patient practiced preparing syringe 3 times. yes Skin preparation discussed and done by patient. yes Patient injected medication. yes Patient compressed injection site 3-5 minutes. yes Usage of medication discussed: (1 time per 24 hours 2-3 times a week). yes Patient told to rotate sites. yes Patient told to keep notes on injections. yes Patient instructed to call after using x1. yes LEARNING RESPONSE PATIENT / FAMILY RESPONSE: Performs skill independently: Anatomy of penis Syringe and needle size Sterility principles Syringe preparation and injection technique FOLLOW-UP PLAN REVIEWED: yes SUPPLEMENTAL MATERIAL: Written instructions given to the patient and read in the office.yes REFERRAL (RECOMMENDATION): None Injection results: Patient to call office with results and further dosing instructions Homegoing medication: Phentolamine-Alprostadil 0.5 mg-20 mcg/mL injection 10 units I spent a total of, 60 minutes face to face with the patient. Greater than 50% of the time was spent counseling and coordinating the care based on my plan and assessment as noted. Electronically Signed LAWANDA Schaffer, NELY QUICK In Department: UROLOGY documented in this encounterAv[facility] Miscellaneous Notes* Telephone Encounter - Aleja Zheng TIA - 02/03/2022 11:26 AM EDT Called patient- he is aware that he needs to schedule appointment for IC teaching at [place]. Will make at his convenience. Aleja Zheng LPN documented in this encounterAvita [facility]04-04-2022 Miscellaneous Notes* Telephone Encounter - Cheryle Malone RN - 02/01/2022 3:10 PM EDT Patient calls and notified that referral is placed. Patient voices understanding. Cheryle Malone RN * Telephone Encounter - Raul Domingo LPN - 02/01/2022 9:34 AM EDT Left message for pt to contact office. Raul Domingo LPN * Telephone Encounter - Cruz Prado MD - 01/29/2022 5:34 PM EDT Endocrine consult placed. Let patient know I do not have a specific provider I recommend. * Telephone Encounter - Shabana Reed LPN - 01/29/2022 4:11 PM EDT Patient calling asking to have referral for [employer] to help with his diabetic control. He would like to stay in [facility] system, asking who does PCP recommend he go to? Pending consult, needs diagnosis. Please advise documented in this encounterAvita [facility]04-01-2022 Miscellaneous Notes* Telephone Encounter - Kori Stubbs - 01/29/2022 4:12 PM EDT Bear contacted patient to address his questions. Kori Stubbs * Telephone Encounter - Yady Herrera Ma - 01/29/2022 3:12 PM EDT Patient called back and states the reason for his visit is to discuss testosterone and what to do next. * Telephone Encounter - Bear Menezes PA-C - 01/29/2022 2:53 PM EDT I have attempted to contact this patient several times Regarding the reason for his virtual visit. He was on for a visit 01/22/22 and the same situation , I called him to find out what the visit was for so I could see if he needed an in person visit or ifvirtual was indicated. He has yet to return my calls and he is on the schedule again today, so I amcalling to find out the nature of the visit once again. I know he has seen me recently to be tested for possible low testosterone and those results were sent to him with explanation that he has levels that are not indicating the need for TRT at this time. So if he wished to discuss this I am able to discuss in a phone call no need for virtual visit However, this could be something different and trying to find out. Still not retunring phone call requests. And today's appointment will be cancelled unless he can communicate with a response to my questions LAWANDA Schaffer, [place], NELY . documented in this encounterAvita [facility]04-01-2022 History of Present illness Narrative* Bear Menezes PA-C - 01/29/2022 4:00 PM EDT VIRTUAL VISIT PROGRESS NOTE This is a virtual visit using [place] video visit. It required patient-provider interaction for themedical decision making as documented below. Dar Rose is a 66 year old male being seen for Impotence s/p Simple prostatectomy 2018 , Hx of BPH with very large prostate psa-0.48 hormone levels are not low enough to indicate TRT, he is mostly having ED and lack of confidence when it comes to ED HISTORY REVIEWED (electronic chart updated): PAST MEDICAL HISTORY Diagnosis Date Anxiety 11/16/2012 Arrhythmia 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 07/06/2018 Basal cell carcinoma 12/02/2021 BPH (benign prostatic hyperplasia) s/p removal Chronic insomnia 02/24/2019 Controlled type 2 diabetes mellitus with stage 3 chronic kidney disease, without long-term current use of insulin ([facility]) 02/24/2019 Decreased libido 01/30/2018 Degenerative retinal drusen of both eyes 05/30/2015 ED (erectile dysfunction) 05/20/2021 Essential hypertension, benign 06/06/2006 Ex-smoker 05/20/2021 Started age 16, up to 2 PPD quit age 21 Gastroesophageal reflux disease with esophagitis without hemorrhage 05/20/2021 Herniated lumbar intervertebral disc History of depression Iron deficiency anemia 06/21/2020 Irritable bowel syndrome with both constipation and diarrhea 07/31/2021 Leg cramps 01/30/2018 Low testosterone in male 06/21/2020 Lumbar radiculopathy 02/24/2019 Malignant melanoma of torso excluding breast ([facility]) 02/11/2020 Mixed hyperlipidemia 03/20/2013 Nuclear sclerotic cataract of both eyes 05/30/2015 Peripheral retinal degeneration, paving stone, bilateral 09/09/2017 Posterior vitreous detachment of left eye 08/31/2016 Posterior vitreous detachment of right eye 09/09/2017 Renal cyst, right 08/10/2021 Simple, benign US 07/2021 Rotator cuff tear, left Senile nuclear sclerosis 05/17/2017 Senile nuclear sclerosis, bilateral 09/09/2017 SVT (supraventricular tachycardia) ([facility]) 05/20/2021 Treated with Ablation: 2013 Type 2 diabetes mellitus with retinopathy, without long-term current use of insulin ([facility]) 09/09/2017 Uncontrolled type 2 diabetes mellitus with stage 3 chronic kidney disease, without long-term current use of insulin 01/30/2018 Vitreous syneresis of both eyes 05/30/2015 PAST SURGICAL HISTORY Procedure Laterality Date COLONOSCOPY 2011 COLONOSCOPY FLX DX W/COLLJ SPEC WHEN PFRMD 08/21/2018 repeat 5 years ESOPHAGOGASTRODUODENOSCOPY TRANSORAL DIAGNOSTIC 08/21/2018 repeat 2 years FASCT PALM W/WO Z-PLASTY TISSUE REARGMT/SKN GRFT Left 01/05/2018 A1 sánchez release ring finger HEART SURGERY HX LAPS PROSTECT RETROPUBIC RAD W/NRV SPARING ROBOT 02/02/2019 for enlarged prostate PAST SURGICAL HISTORY OF 1999 rotator cuff left PAST SURGICAL HISTORY OF 2014 ablation, SVT TONSILLECTOMY HX FAMILY HISTORY Problem Relation Age of Onset other (cancer, lung) Mother Alzheimer's Disease Father No Known Problems Sister Heart Attack Brother No Known Problems Maternal Grandmother No Known Problems Maternal Grandfather No Known Problems Paternal Grandmother No Known Problems Paternal Grandfather Social History Tobacco Use Smoking status: Former Smoker Smokeless tobacco: Never Used Tobacco comment: quit around 1983 Vaping Use Vaping Use: Never used Substance Use Topics Alcohol use: Yes Comment: seldom beer Drug use: No Current Outpatient Medications Medication Sig phentolamine-alprostadil 0.5 mg - 20 mcg/mL injection (CPD) Inject 20 units into the intracavernosal region of the penis erythromycin (ROMYCIN) 5 mg/gram (0.5 %) ophthalmic ointment Use 1 application in the right eye three times daily. dulaglutide (TRULICITY) 1.5 mg/0.5 mL pen injector Inject 1.5 mg subcutaneously one time a week. Inject once per week. Discard Pen After fluticasone (FLONASE) 50 mcg/actuation nasal spray Use 2 Sprays in each nostril once daily. Rinse mouth after use. esomeprazole (NEXIUM) 40 mg capsule Take 1 capsule by mouth once daily. metFORMIN (GLUCOPHAGE) 1,000 mg tablet Take 1 tablet by mouth twice daily with meals. losartan (COZAAR) 100 mg tablet Take 1 tablet by mouth once daily. rosuvastatin (CRESTOR) 5 mg tablet Take 1 tablet by mouth daily at bedtime. carvedilol (COREG) 25 mg tablet Take 1 tablet by mouth twice daily. Per CardioDr. Schneider amLODIPine (NORVASC) 10 mg tablet Take 1 tablet by mouth once daily. Per CardioDr. Schneider blood sugar diagnostic (BLOOD GLUCOSE TEST) test strip Test blood sugar(s) 2 times daily. Dx: OtherDM Code E11.22 Insulin: Yes Lancets lancets Test blood sugar(s) 2 times daily. Dx: Other DM Code E11.22 Insulin: Yes traZODone (DESYREL) 100 mg tablet Take 1 tablet by mouth daily at bedtime. EPINEPHrine (AUVI-Q) 0.3 mg/0.3 mL auto-injector Inject 0.3 mL intramuscularly as needed. hydrOXYzine HCl (ATARAX) 10 mg tablet Take 1 tablet by mouth three times daily as needed for anxiety. Tadalafil (CIALIS) 20 mg tab(s) Take 1 tablet by mouth once daily. As needed cyclobenzaprine (FLEXERIL) 10 mg tablet Take 1 tablet by mouth three times daily as needed. docusate sodium (COLACE) 100 mg capsule Take 1 capsule by mouth twice daily as needed for Constipation. No current facility-administered medications for this visit. ALLERGIES Allergen Reactions Bee Sting Anaphylaxis Amitriptyline Intolerance Did not tolerate. Tramadol Vomiting REVIEW OF SYSTEMS: GENERAL: feeling well without fatigue, no recent change in weight, no fever, activity level is normal PHYSICAL EXAMINATION: VIDEO EXAM: (if completed, performed via video enabled technology) No exam performed ASSESSMENT/ PLAN: > (N52.9) Impotence of organic origin (primary encounter diagnosis) (E11.22, N18.30) Controlled type 2 diabetes mellitus with stage 3 chronic kidney disease, without long-term current use of insulin ([facility]) > Impotence trial with Ic Injections - he had been given an injection with Dr. Lagos in 2019 Bi-Mix sent LAWANDA Schaffer, [place], NELY documented in this encounterAvita [facility]03-27-[facility]22 History of Present illness Narrative* Carlos A Mireles APRN.SOCIAL MEDIA MANAGER - 01/24/2022 10:46 AM EDT Images from the original note were not included. Subjective HPI HPI Dar Rose is a 66 year old male who presents today for CC of right eye irritation noted this morning, feels like something in eye or scratched. No known injury/woke up with it this AM. Denies known injury. Denies vision changes/eye pain. .Patient presents with: Eye Problem Right Eye: irritation, redness x this AM PAST MEDICAL HISTORY Diagnosis Date Anxiety 11/16/2012 Arrhythmia 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 07/06/2018 Basal cell carcinoma 12/02/2021 BPH (benign prostatic hyperplasia) s/p removal Chronic insomnia 02/24/2019 Controlled type 2 diabetes mellitus with stage 3 chronic kidney disease, without long-term current use of insulin ([facility]) 02/24/2019 Decreased libido 01/30/2018 Degenerative retinal drusen of both eyes 05/30/2015 ED (erectile dysfunction) 05/20/2021 Essential hypertension, benign 06/06/2006 Ex-smoker 05/20/2021 Started age 16, up to 2 PPD quit age 21 Gastroesophageal reflux disease with esophagitis without hemorrhage 05/20/2021 Herniated lumbar intervertebral disc History of depression Iron deficiency anemia 06/21/2020 Irritable bowel syndrome with both constipation and diarrhea 07/31/2021 Leg cramps 01/30/2018 Low testosterone in male 06/21/2020 Lumbar radiculopathy 02/24/2019 Malignant melanoma of torso excluding breast ([facility]) 02/11/2020 Mixed hyperlipidemia 03/20/2013 Nuclear sclerotic cataract of both eyes 05/30/2015 Peripheral retinal degeneration, paving stone, bilateral 09/09/2017 Posterior vitreous detachment of left eye 08/31/2016 Posterior vitreous detachment of right eye 09/09/2017 Renal cyst, right 08/10/2021 Simple, benign US 07/2021 Rotator cuff tear, left Senile nuclear sclerosis 05/17/2017 Senile nuclear sclerosis, bilateral 09/09/2017 SVT (supraventricular tachycardia) (HCC) 05/20/2021 Treated with Ablation: 2013 Type 2 diabetes mellitus with retinopathy, without long-term current use of insulin ([facility]) 09/09/2017 Uncontrolled type 2 diabetes mellitus with stage 3 chronic kidney disease, without long-term current use of insulin 01/30/2018 Vitreous syneresis of both eyes 05/30/2015 PAST SURGICAL HISTORY Procedure Laterality Date COLONOSCOPY 2011 COLONOSCOPY FLX DX W/COLLJ SPEC WHEN PFRMD 08/21/2018 repeat 5 years ESOPHAGOGASTRODUODENOSCOPY TRANSORAL DIAGNOSTIC 08/21/2018 repeat 2 years FASCT PALM W/WO Z-PLASTY TISSUE REARGMT/SKN GRFT Left 01/05/2018 A1 sánchez release ring finger HEART SURGERY HX LAPS PROSTECT RETROPUBIC RAD W/NRV SPARING ROBOT 02/02/2019 for enlarged prostate PAST SURGICAL HISTORY OF 1999 rotator cuff left PAST SURGICAL HISTORY OF 2013 ablation, SVT TONSILLECTOMY HX ALLERGIES Bee Sting, Amitriptyline, and Tramadol MEDICATIONS dulaglutide (TRULICITY) 1.5 mg/0.5 mL pen injector Inject 1.5 mg subcutaneously one time a week. Inject once per week. Discard Pen After fluticasone (FLONASE) 50 mcg/actuation nasal spray Use 2 Sprays in each nostril once daily. Rinse mouth after use. esomeprazole (NEXIUM) 40 mg capsule Take 1 capsule by mouth once daily. metFORMIN (GLUCOPHAGE) 1,000 mg tablet Take 1 tablet by mouth twice daily with meals. losartan (COZAAR) 100 mg tablet Take 1 tablet by mouth once daily. rosuvastatin (CRESTOR) 5 mg tablet Take 1 tablet by mouth daily at bedtime. carvedilol (COREG) 25 mg tablet Take 1 tablet by mouth twice daily. Per Cardio, Dr. Schneider amLODIPine (NORVASC) 10 mg tablet Take 1 tablet by mouth once daily. Per Cardio, Dr. Schneider blood sugar diagnostic (BLOOD GLUCOSE TEST) test strip Test blood sugar(s) 2 times daily. Dx: OtherDM Code E11.22 Insulin: Yes Lancets lancets Test blood sugar(s) 2 times daily. Dx: Other DM Code E11.22 Insulin: Yes traZODone (DESYREL) 100 mg tablet Take 1 tablet by mouth daily at bedtime. EPINEPHrine (AUVI-Q) 0.3 mg/0.3 mL auto-injector Inject 0.3 mL intramuscularly as needed. hydrOXYzine HCl (ATARAX) 10 mg tablet Take 1 tablet by mouth three times daily as needed for anxiety. Tadalafil (CIALIS) 20 mg tab(s) Take 1 tablet by mouth once daily. As needed cyclobenzaprine (FLEXERIL) 10 mg tablet Take 1 tablet by mouth three times daily as needed. docusate sodium (COLACE) 100 mg capsule Take 1 capsule by mouth twice daily as needed for Constipation. erythromycin (ROMYCIN) 5 mg/gram (0.5 %) ophthalmic ointment Use 1 application in the right eye three times daily. FAMILY HISTORY Problem Relation Age of Onset other (cancer, lung) Mother Alzheimer's Disease Father No Known Problems Sister Heart Attack Brother No Known Problems Maternal Grandmother No Known Problems Maternal Grandfather No Known Problems Paternal Grandmother No Known Problems Paternal Grandfather Social History Tobacco Use Smoking status: Former Smoker Smokeless tobacco: Never Used Tobacco comment: quit around 1983 Vaping Use Vaping Use: Never used Substance Use Topics Alcohol use: Yes Comment: seldom beer Drug use: No ROS Objective Blood pressure 138/84, pulse 73, temperature 36.1 C (97 F), resp. rate 20, weight 94.4 kg (208 lb 3.2 oz), SpO2 97 %. Physical Exam Constitutional: General: He is not in acute distress. Appearance: He is not toxic-appearing or diaphoretic. HENT: Head: Normocephalic and atraumatic. Eyes: General: Right eye: No foreign body, discharge or hordeolum. Comments: Visualizing the eye under black light there is linear uptake of stain indicating a corneal abrasion at the 9 o'clock position. No FB, no hyphema, no global rupture. Negative Za sign. PERRLA Pulmonary: Effort: Pulmonary effort is normal. No accessory muscle usage or respiratory distress. Neurological: Mental Status: He is alert and oriented to person, place, and time. ASSESSMENT/PLAN: 1. Irritation of right eye - ICD9: 379.99, ICD10: H57.89 Erythromycin ointment ordered F/u with eye dr if no improvement in 2 days Urgent f/u for red flag symptoms discussed. - ERYTHROMYCIN 5 MG/GRAM (0.5 %) EYE OINTMENT Agrees to plan Carlos A Mireles APRN.CNP documented in this encounterAvita [facility]03-25-2022 Miscellaneous Notes* Telephone Encounter - Connie Bowman RN - 01/22/2022 3:09 PM EDT patient has a virtual appointment with Bear Menezes Today calling to verify if the patient was calling regarding his Testosterone results called patient twice to discuss results no answer message left on voice mail requesting the patientcall the office to obtain results per Bear patient does not qualify for Testosterone replacement therapy and today's appointment is not necessary. documented in this encounterAvita [facility]03-21-2022 Miscellaneous Notes* Telephone Encounter - Cruz Prado MD - 01/18/2022 4:52 PM EDT The following approved medication requests have been transmitted electronically. Signed Prescriptions Disp Refills dulaglutide (TRULICITY) 1.5 mg/0.5 mL pen injector 12 Each 3 Sig: Inject 1.5 mg subcutaneously one time a week. Inject once per week. Discard Pen After SAMANTA: No Authorizing Provider: CRUZ PRADO fluticasone (FLONASE) 50 mcg/actuation nasal spray 1 Each 5 Sig: Use 2 Sprays in each nostril once daily. Rinse mouth after use. SAMANTA: No Authorizing Provider: CRUZ PRADO MD * Telephone Encounter - Lurdes Hernandez Ma - 01/18/2022 3:30 PM EDT Last office visit: 11/06/21 F/u scheduled: 05/12/22 Lurdes Hernandez Ma * Telephone Encounter - Eva Collier - 01/18/2022 3:13 PM EDT Patient has been identified by name and date of : Yes Pending Prescriptions Disp Refills TRULICITY 1.5 MG/0.5 ML SUBCUTANEOUS PEN INJECTOR 12 Each 3 Sig: Inject 1.5 mg subcutaneously one time a week. Inject once per week. Discard Pen After SAMANTA: No FLUTICASONE PROPIONATE 50 MCG/ACTUATION NASAL SPRAY,SUSPENSION Sig: Use 2 Sprays in each nostril once daily. Rinse mouth after use. SAMANTA: No RX INSTRUCTIONS: Patient aware RX will be sent to pharmacy. No need to notify patient. Patient aware RX escripted to mail away pharmacy. No need to notify patient. Eva Collier documented in this encounterAvita [facility]10-04-2021 History of Present illness Narrative* Nkechi Christian, RT(R) - 08/03/2021 4:40 PM EDT Radiology Service Progress Note PATIENT NAME: Dar Rose DATE OF SERVICE: August 03, 2021 TIME: 4:36 PM PATIENT IDENTITY VERIFICATION COMPLETED USING TWO (2) IDENTIFIERS: Name and Date of confirmedby patient verbally. FALL SCREENING: Has the patient had 2 falls in the last year or 1 fall with injury or currently using an Ambulatory Assistive Device (Walker, Cane, Wheelchair, Crutches, etc.)? No PATIENT GENDER DATA: Male PATIENT RELEVANT IMPLANT DATA REVIEWED: Yes RADIOLOGY DEPARTMENT: General X-ray: Exam(s) Completed: Abdomen X-Ray: Abdomen PERIPHERAL IV DATA: Not applicable SIGNED BY: RT Isa(Shorty) August 03, 2021 4:36 PM documented in this encounterAvita Health [facility]12-19-2020 History of Present illness Narrative* Alannah SmithGuideShakira Alvarez - 10/18/2020 8:30 AM EST Radiology Service Progress Note PATIENT NAME: Dar Rose DATE OF SERVICE: October 18, 2020 TIME: 8:40 AM PATIENT IDENTITY VERIFICATION COMPLETED USING TWO (2) IDENTIFIERS: Name and Date of confirmedby patient verbally. FALL SCREENING: Has the patient had 2 falls in the last year or 1 fall with injury or currently using an Ambulatory Assistive Device (Walker, Cane, Wheelchair, Crutches, etc.)? No PATIENT GENDER DATA: Male PATIENT RELEVANT IMPLANT DATA REVIEWED: Not Applicable RADIOLOGY DEPARTMENT: General X-ray: Exam(s) Completed: Abdomen X-Ray Abdomen PERIPHERAL IV DATA: Not applicable SIGNED BY: Shakira Solitario October 18, 2020 8:40 AM documented in this encounterAvita Health [facility]02-15-2019 History of Past illness Narrative* Problem Noted Date Resolved Date Hematuria 12/15/2018 12/16/2018 Uncontrolled type 2 diabetes mellitus with stage 3 chronic kidney disease, without long-term current use of insulin 01/30/2018 02/24/2019 Dupuytren contracture 08/25/2017 08/17/2018 Trigger middle finger of right hand 08/25/2017 08/17/2018 Trigger ring finger of left hand 08/25/2017 08/17/2018 Matthew's esophagus 04/01/2016 08/28/2018 Overview: EGD 04/01/2016 Other chronic allergic conjunctivitis 05/30/2015 08/17/2018 Health maintenance examination 09/29/2011 0 02/15/2013 documented as of this encounter (statuses as of 01/18/2022) [facility] History of Past illness Narrative* Problem Noted Date Resolved Date Hematuria 12/15/2018 12/16/2018 Uncontrolled type 2 diabetes mellitus with stage 3 chronic kidney disease, without long-term current use of insulin 01/30/2018 02/24/2019 Dupuytren contracture 08/25/2017 08/17/2018 Trigger middle finger of right hand 08/25/2017 08/17/2018 Trigger ring finger of left hand 08/25/2017 08/17/2018 Matthew's esophagus 04/01/2016 08/28/2018 Overview: EGD 04/01/2016 Other chronic allergic conjunctivitis 05/30/2015 08/17/2018 Health maintenance examination 09/29/2011 0 02/15/2013 documented as of this encounter (statuses as of 01/22/2022) [facility] of Past illness Narrative* Problem Noted Date Resolved Date Hematuria 12/15/2018 12/16/2018 Uncontrolled type 2 diabetes mellitus with stage 3 chronic kidney disease, without long-term current use of insulin 01/30/2018 02/24/2019 Dupuytren contracture 08/25/2017 08/17/2018 Trigger middle finger of right hand 08/25/2017 08/17/2018 Trigger ring finger of left hand 08/25/2017 08/17/2018 Mtathew's esophagus 04/01/2016 08/28/2018 Overview: EGD 04/01/2016 Other chronic allergic conjunctivitis 05/30/2015 08/17/2018 Health maintenance examination 09/29/2011 0 02/15/2013 documented as of this encounter (statuses as of 01/24/2022) [facility] of [facility] illness Narrative* Problem Noted Date Resolved Date Hematuria 12/15/2018 12/16/2018 Uncontrolled type 2 diabetes mellitus with stage 3 chronic kidney disease, without long-term current use of insulin 01/30/2018 02/24/2019 Dupuytren contracture 08/25/2017 08/17/2018 Trigger middle finger of right hand 08/25/2017 08/17/2018 Trigger ring finger of left hand 08/25/2017 08/17/2018 Matthew's esophagus 04/01/2016 08/28/2018 Overview: EGD 04/01/2016 Other chronic allergic conjunctivitis 05/30/2015 08/17/2018 Health maintenance examination 09/29/2011 0 02/15/2013 documented as of this encounter (statuses as of 01/29/2022) [facility] of [facility] illness Narrative* Problem Noted Date Resolved Date Hematuria 12/15/2018 12/16/2018 Uncontrolled type 2 diabetes mellitus with stage 3 chronic kidney disease, without long-term current use of insulin 01/30/2018 02/24/2019 Dupuytren contracture 08/25/2017 08/17/2018 Trigger middle finger of right hand 08/25/2017 08/17/2018 Trigger ring finger of left hand 08/25/2017 08/17/2018 Matthew's esophagus 04/01/2016 08/28/2018 Overview: EGD 04/01/2016 Other chronic allergic conjunctivitis 05/30/2015 08/17/2018 Health maintenance examination 09/29/2011 0 02/15/2013 documented as of this encounter (statuses as of 01/29/2022) [place] [id number] History of Past illness Narrative* Problem Noted Date Resolved Date Hematuria 12/15/2018 12/16/2018 Uncontrolled type 2 diabetes mellitus with stage 3 chronic kidney disease, without long-term current use of insulin 01/30/2018 02/24/2019 Dupuytren contracture 08/25/2017 08/17/2018 Trigger middle finger of right hand 08/25/2017 08/17/2018 Trigger ring finger of left hand 08/25/2017 08/17/2018 Matthew's esophagus 04/01/2016 08/28/2018 Overview: EGD 04/01/2016 Other chronic allergic conjunctivitis 05/30/2015 08/17/2018 Health maintenance examination 09/29/2011 0 02/15/2013 documented as of this encounter (statuses as of 02/01/2022) [facility] of [facility] illness Narrative* Problem Noted Date Resolved Date Hematuria 12/15/2018 12/16/2018 Uncontrolled type 2 diabetes mellitus with stage 3 chronic kidney disease, without long-term current use of insulin 01/30/2018 02/24/2019 Dupuytren contracture 08/25/2017 08/17/2018 Trigger middle finger of right hand 08/25/2017 08/17/2018 Trigger ring finger of left hand 08/25/2017 08/17/2018 Matthew's esophagus 04/01/2016 08/28/2018 Overview: EGD 04/01/2016 Other chronic allergic conjunctivitis 05/30/2015 08/17/2018 Health maintenance examination 09/29/2011 0 02/15/2013 documented as of this encounter (statuses as of 02/03/2022) [facility] History of Past illness Narrative* Problem Noted Date Resolved Date Hematuria 12/15/2018 12/16/2018 Uncontrolled type 2 diabetes mellitus with stage 3 chronic kidney disease, without long-term current use of insulin 01/30/2018 02/24/2019 Dupuytren contracture 08/25/2017 08/17/2018 Trigger middle finger of right hand 08/25/2017 08/17/2018 Trigger ring finger of left hand 08/25/2017 08/17/2018 Matthew's esophagus 04/01/2016 08/28/2018 Overview: EGD 04/01/2016 Other chronic allergic conjunctivitis 05/30/2015 08/17/2018 Health maintenance examination 09/29/2011 0 02/15/2013 documented as of this encounter (statuses as of 02/05/2022) [facility] History of Past illness Narrative* Problem Noted Date Resolved Date Hematuria 12/15/2018 12/16/2018 Uncontrolled type 2 diabetes mellitus with stage 3 chronic kidney disease, without long-term current use of insulin 01/30/2018 02/24/2019 Dupuytren contracture 08/25/2017 08/17/2018 Trigger middle finger of right hand 08/25/2017 08/17/2018 Trigger ring finger of left hand 08/25/2017 08/17/2018 Matthew's esophagus 04/01/2016 08/28/2018 Overview: EGD 04/01/2016 Other chronic allergic conjunctivitis 05/30/2015 08/17/2018 Health maintenance examination 09/29/2011 0 02/15/2013 documented as of this encounter (statuses as of 02/17/2022) [facility] History of Past illness Narrative* Problem Noted Date Resolved Date Hematuria 12/15/2018 12/16/2018 Uncontrolled type 2 diabetes mellitus with stage 3 chronic kidney disease, without long-term current use of insulin 01/30/2018 02/24/2019 Dupuytren contracture 08/25/2017 08/17/2018 Trigger middle finger of right hand 08/25/2017 08/17/2018 Trigger ring finger of left hand 08/25/2017 08/17/2018 Matthew's esophagus 04/01/2016 08/28/2018 Overview: EGD 04/01/2016 Other chronic allergic conjunctivitis 05/30/2015 08/17/2018 Health maintenance examination 09/29/2011 0 02/15/2013 documented as of this encounter (statuses as of 02/18/2022) [facility] History of Past illness Narrative* Problem Noted Date Resolved Date Hematuria 12/15/2018 12/16/2018 Uncontrolled type 2 diabetes mellitus with stage 3 chronic kidney disease, without long-term current use of insulin 01/30/2018 02/24/2019 Dupuytren contracture 08/25/2017 08/17/2018 Trigger middle finger of right hand 08/25/2017 08/17/2018 Trigger ring finger of left hand 08/25/2017 08/17/2018 Matthew's esophagus 04/01/2016 08/28/2018 Overview: EGD 04/01/2016 Other chronic allergic conjunctivitis 05/30/2015 08/17/2018 Health maintenance examination 09/29/2011 0 02/15/2013 documented as of this encounter (statuses as of 02/19/2022) [facility] History of Past illness Narrative* Problem Noted Date Resolved Date Hematuria 12/15/2018 12/16/2018 Uncontrolled type 2 diabetes mellitus with stage 3 chronic kidney disease, without long-term current use of insulin 01/30/2018 02/24/2019 Dupuytren contracture 08/25/2017 08/17/2018 Trigger middle finger of right hand 08/25/2017 08/17/2018 Trigger ring finger of left hand 08/25/2017 08/17/2018 Matthew's esophagus 04/01/2016 08/28/2018 Overview: EGD 04/01/2016 Other chronic allergic conjunctivitis 05/30/2015 08/17/2018 Health maintenance examination 09/29/2011 0 02/15/2013 documented as of this encounter (statuses as of 02/19/2022) [facility] History of Past illness Narrative* Problem Noted Date Resolved Date Hematuria 12/15/2018 12/16/2018 Uncontrolled type 2 diabetes mellitus with stage 3 chronic kidney disease, without long-term current use of insulin 01/30/2018 02/24/2019 Dupuytren contracture 08/25/2017 08/17/2018 Trigger middle finger of right hand 08/25/2017 08/17/2018 Trigger ring finger of left hand 08/25/2017 08/17/2018 Matthew's esophagus 04/01/2016 08/28/2018 Overview: EGD 04/01/2016 Other chronic allergic conjunctivitis 05/30/2015 08/17/2018 Health maintenance examination 09/29/2011 0 02/15/2013 documented as of this encounter (statuses as of 03/16/2022) [facility] History of Past illness Narrative* Problem Noted Date Resolved Date Hematuria 12/15/2018 12/16/2018 Uncontrolled type 2 diabetes mellitus with stage 3 chronic kidney disease, without long-term current use of insulin 01/30/2018 02/24/2019 Dupuytren contracture 08/25/2017 08/17/2018 Trigger middle finger of right hand 08/25/2017 08/17/2018 Trigger ring finger of left hand 08/25/2017 08/17/2018 Matthew's esophagus 04/01/2016 08/28/2018 Overview: EGD 04/01/2016 Other chronic allergic conjunctivitis 05/30/2015 08/17/2018 Health maintenance examination 09/29/2011 0 02/15/2013 documented as of this encounter (statuses as of 04/02/2022) [facility] History of Past illness Narrative* Problem Noted Date Resolved Date Hematuria 12/15/2018 12/16/2018 Uncontrolled type 2 diabetes mellitus with stage 3 chronic kidney disease, without long-term current use of insulin 01/30/2018 02/24/2019 Dupuytren contracture 08/25/2017 08/17/2018 Trigger middle finger of right hand 08/25/2017 08/17/2018 Trigger ring finger of left hand 08/25/2017 08/17/2018 Matthew's esophagus 04/01/2016 08/28/2018 Overview: EGD 04/01/2016 Other chronic allergic conjunctivitis 05/30/2015 08/17/2018 Health maintenance examination 09/29/2011 0 02/15/2013 documented as of this encounter (statuses as of 05/14/2022) [facility] History of Past illness Narrative* Problem Noted Date Resolved Date Hematuria 12/15/2018 12/16/2018 Uncontrolled type 2 diabetes mellitus with stage 3 chronic kidney disease, without long-term current use of insulin 01/30/2018 02/24/2019 Dupuytren contracture 08/25/2017 08/17/2018 Trigger middle finger of right hand 08/25/2017 08/17/2018 Trigger ring finger of left hand 08/25/2017 08/17/2018 Matthew's esophagus 04/01/2016 08/28/2018 Overview: EGD 04/01/2016 Other chronic allergic conjunctivitis 05/30/2015 08/17/2018 Health maintenance examination 09/29/2011 0 02/15/2013 documented as of this encounter (statuses as of 05/31/2022) [facility] History of Past illness Narrative* Problem Noted Date Resolved Date Hematuria 12/15/2018 12/16/2018 Uncontrolled type 2 diabetes mellitus with stage 3 chronic kidney disease, without long-term current use of insulin 01/30/2018 02/24/2019 Dupuytren contracture 08/25/2017 08/17/2018 Trigger middle finger of right hand 08/25/2017 08/17/2018 Trigger ring finger of left hand 08/25/2017 08/17/2018 Matthew's esophagus 04/01/2016 08/28/2018 Overview: EGD 04/01/2016 Other chronic allergic conjunctivitis 05/30/2015 08/17/2018 Health maintenance examination 09/29/2011 0 02/15/2013 documented as of this encounter (statuses as of 06/02/2022) [facility] History of Past illness Narrative* Problem Noted Date Resolved Date Hematuria 12/15/2018 12/16/2018 Uncontrolled type 2 diabetes mellitus with stage 3 chronic kidney disease, without long-term current use of insulin 01/30/2018 02/24/2019 Dupuytren contracture 08/25/2017 08/17/2018 Trigger middle finger of right hand 08/25/2017 08/17/2018 Trigger ring finger of left hand 08/25/2017 08/17/2018 Matthew's esophagus 04/01/2016 08/28/2018 Overview: EGD 04/01/2016 Other chronic allergic conjunctivitis 05/30/2015 08/17/2018 Health maintenance examination 09/29/2011 0 02/15/2013 documented as of this encounter (statuses as of 06/09/2022) [facility] History of Past illness Narrative* Problem Noted Date Resolved Date Hematuria 12/15/2018 12/16/2018 Uncontrolled type 2 diabetes mellitus with stage 3 chronic kidney disease, without long-term current use of insulin 01/30/2018 02/24/2019 Dupuytren contracture 08/25/2017 08/17/2018 Trigger middle finger of right hand 08/25/2017 08/17/2018 Trigger ring finger of left hand 08/25/2017 08/17/2018 Matthew's esophagus 04/01/2016 08/28/2018 Overview: EGD 04/01/2016 Other chronic allergic conjunctivitis 05/30/2015 08/17/2018 Health maintenance examination 09/29/2011 0 02/15/2013 documented as of this encounter (statuses as of 06/22/2022) [facility] History of Past illness Narrative* Problem Noted Date Resolved Date Hematuria 12/15/2018 12/16/2018 Uncontrolled type 2 diabetes mellitus with stage 3 chronic kidney disease, without long-term current use of insulin 01/30/2018 02/24/2019 Dupuytren contracture 08/25/2017 08/17/2018 Trigger middle finger of right hand 08/25/2017 08/17/2018 Trigger ring finger of left hand 08/25/2017 08/17/2018 Matthew's esophagus 04/01/2016 08/28/2018 Overview: EGD 04/01/2016 Other chronic allergic conjunctivitis 05/30/2015 08/17/2018 Health maintenance examination 09/29/2011 0 02/15/2013 documented as of this encounter (statuses as of 06/28/2022) [facility] History of Past illness Narrative* Problem Noted Date Resolved Date Hematuria 12/15/2018 12/16/2018 Uncontrolled type 2 diabetes mellitus with stage 3 chronic kidney disease, without long-term current use of insulin 01/30/2018 02/24/2019 Dupuytren contracture 08/25/2017 08/17/2018 Trigger middle finger of right hand 08/25/2017 08/17/2018 Trigger ring finger of left hand 08/25/2017 08/17/2018 Matthew's esophagus 04/01/2016 08/28/2018 Overview: EGD 04/01/2016 Other chronic allergic conjunctivitis 05/30/2015 08/17/2018 Health maintenance examination 09/29/2011 0 02/15/2013 documented as of this encounter (statuses as of 07/06/2022) [facility] History of Past illness Narrative* Problem Noted Date Resolved Date Hematuria 12/15/2018 12/16/2018 Uncontrolled type 2 diabetes mellitus with stage 3 chronic kidney disease, without long-term current use of insulin 01/30/2018 02/24/2019 Dupuytren contracture 08/25/2017 08/17/2018 Trigger middle finger of right hand 08/25/2017 08/17/2018 Trigger ring finger of left hand 08/25/2017 08/17/2018 Matthew's esophagus 04/01/2016 08/28/2018 Overview: EGD 04/01/2016 Other chronic allergic conjunctivitis 05/30/2015 08/17/2018 Health maintenance examination 09/29/2011 0 02/15/2013 documented as of this encounter (statuses as of 07/08/2022) [facility] History of Past illness Narrative* Problem Noted Date Resolved Date Hematuria 12/15/2018 12/16/2018 Uncontrolled type 2 diabetes mellitus with stage 3 chronic kidney disease, without long-term current use of insulin 01/30/2018 02/24/2019 Dupuytren contracture 08/25/2017 08/17/2018 Trigger middle finger of right hand 08/25/2017 08/17/2018 Trigger ring finger of left hand 08/25/2017 08/17/2018 Matthew's esophagus 04/01/2016 08/28/2018 Overview: EGD 04/01/2016 Other chronic allergic conjunctivitis 05/30/2015 08/17/2018 Health maintenance examination 09/29/2011 0 02/15/2013 documented as of this encounter (statuses as of 07/08/2022) [facility] History of Past illness Narrative* Problem Noted Date Resolved Date Hematuria 12/15/2018 12/16/2018 Uncontrolled type 2 diabetes mellitus with stage 3 chronic kidney disease, without long-term current use of insulin 01/30/2018 02/24/2019 Dupuytren contracture 08/25/2017 08/17/2018 Trigger middle finger of right hand 08/25/2017 08/17/2018 Trigger ring finger of left hand 08/25/2017 08/17/2018 Matthew's esophagus 04/01/2016 08/28/2018 Overview: EGD 04/01/2016 Other chronic allergic conjunctivitis 05/30/2015 08/17/2018 Health maintenance examination 09/29/2011 0 02/15/2013 documented as of this encounter (statuses as of 07/09/2022) [facility] History of Past illness Narrative* Problem Noted Date Resolved Date Hematuria 12/15/2018 12/16/2018 Uncontrolled type 2 diabetes mellitus with stage 3 chronic kidney disease, without long-term current use of insulin 01/30/2018 02/24/2019 Dupuytren contracture 08/25/2017 08/17/2018 Trigger middle finger of right hand 08/25/2017 08/17/2018 Trigger ring finger of left hand 08/25/2017 08/17/2018 Matthew's esophagus 04/01/2016 08/28/2018 Overview: EGD 04/01/2016 Other chronic allergic conjunctivitis 05/30/2015 08/17/2018 Health maintenance examination 09/29/2011 0 02/15/2013 documented as of this encounter (statuses as of 07/09/2022) [facility] History of Past illness Narrative* Problem Noted Date Resolved Date Hematuria 12/15/2018 12/16/2018 Uncontrolled type 2 diabetes mellitus with stage 3 chronic kidney disease, without long-term current use of insulin 01/30/2018 02/24/2019 Dupuytren contracture 08/25/2017 08/17/2018 Trigger middle finger of right hand 08/25/2017 08/17/2018 Trigger ring finger of left hand 08/25/2017 08/17/2018 Matthew's esophagus 04/01/2016 08/28/2018 Overview: EGD 04/01/2016 Other chronic allergic conjunctivitis 05/30/2015 08/17/2018 Health maintenance examination 09/29/2011 0 02/15/2013 documented as of this encounter (statuses as of 07/19/2022) [facility] History of Past illness Narrative* Problem Noted Date Resolved Date Hematuria 12/15/2018 12/16/2018 Uncontrolled type 2 diabetes mellitus with stage 3 chronic kidney disease, without long-term current use of insulin 01/30/2018 02/24/2019 Dupuytren contracture 08/25/2017 08/17/2018 Trigger middle finger of right hand 08/25/2017 08/17/2018 Trigger ring finger of left hand 08/25/2017 08/17/2018 Matthew's esophagus 04/01/2016 08/28/2018 Overview: EGD 04/01/2016 Other chronic allergic conjunctivitis 05/30/2015 08/17/2018 Health maintenance examination 09/29/2011 0 02/15/2013 documented as of this encounter (statuses as of 08/09/2022) [facility] History of Past illness Narrative* Problem Noted Date Resolved Date Hematuria 12/15/2018 12/16/2018 Uncontrolled type 2 diabetes mellitus with stage 3 chronic kidney disease, without long-term current use of insulin 01/30/2018 02/24/2019 Dupuytren contracture 08/25/2017 08/17/2018 Trigger middle finger of right hand 08/25/2017 08/17/2018 Trigger ring finger of left hand 08/25/2017 08/17/2018 Matthew's esophagus 04/01/2016 08/28/2018 Overview: EGD 04/01/2016 Other chronic allergic conjunctivitis 05/30/2015 08/17/2018 Health maintenance examination 09/29/2011 0 02/15/2013 documented as of this encounter (statuses as of 08/09/2022) [facility] History of Past illness Narrative* Problem Noted Date Resolved Date Hematuria 12/15/2018 12/16/2018 Uncontrolled type 2 diabetes mellitus with stage 3 chronic kidney disease, without long-term current use of insulin 01/30/2018 02/24/2019 Dupuytren contracture 08/25/2017 08/17/2018 Trigger middle finger of right hand 08/25/2017 08/17/2018 Trigger ring finger of left hand 08/25/2017 08/17/2018 Matthew's esophagus 04/01/2016 08/28/2018 Overview: EGD 04/01/2016 Other chronic allergic conjunctivitis 05/30/2015 08/17/2018 Health maintenance examination 09/29/2011 0 02/15/2013 documented as of this encounter (statuses as of 08/24/2022) [facility] History of Past illness Narrative* Problem Noted Date Resolved Date Hematuria 12/15/2018 12/16/2018 Uncontrolled type 2 diabetes mellitus with stage 3 chronic kidney disease, without long-term current use of insulin 01/30/2018 02/24/2019 Dupuytren contracture 08/25/2017 08/17/2018 Trigger middle finger of right hand 08/25/2017 08/17/2018 Trigger ring finger of left hand 08/25/2017 08/17/2018 Matthew's esophagus 04/01/2016 08/28/2018 Overview: EGD 04/01/2016 Other chronic allergic conjunctivitis 05/30/2015 08/17/2018 Health maintenance examination 09/29/2011 0 02/15/2013 documented as of this encounter (statuses as of 09/03/2022) [facility] History of Past illness Narrative* Problem Noted Date Resolved Date Hematuria 12/15/2018 12/16/2018 Uncontrolled type 2 diabetes mellitus with stage 3 chronic kidney disease, without long-term current use of insulin 01/30/2018 02/24/2019 Dupuytren contracture 08/25/2017 08/17/2018 Trigger middle finger of right hand 08/25/2017 08/17/2018 Trigger ring finger of left hand 08/25/2017 08/17/2018 Matthew's esophagus 04/01/2016 08/28/2018 Overview: EGD 04/01/2016 Other chronic allergic conjunctivitis 05/30/2015 08/17/2018 Health maintenance examination 09/29/2011 0 02/15/2013 documented as of this encounter (statuses as of 10/14/2022) [facility] History of Past illness Narrative* Problem Noted Date Resolved Date Hematuria 12/15/2018 12/16/2018 Uncontrolled type 2 diabetes mellitus with stage 3 chronic kidney disease, without long-term current use of insulin 01/30/2018 02/24/2019 Dupuytren contracture 08/25/2017 08/17/2018 Trigger middle finger of right hand 08/25/2017 08/17/2018 Trigger ring finger of left hand 08/25/2017 08/17/2018 Matthew's esophagus 04/01/2016 08/28/2018 Overview: EGD 04/01/2016 Other chronic allergic conjunctivitis 05/30/2015 08/17/2018 Health maintenance examination 09/29/2011 0 02/15/2013 documented as of this encounter (statuses as of 10/18/2022) [facility] History of Past illness Narrative* Problem Noted Date Resolved Date Hematuria 12/15/2018 12/16/2018 Uncontrolled type 2 diabetes mellitus with stage 3 chronic kidney disease, without long-term current use of insulin 01/30/2018 02/24/2019 Dupuytren contracture 08/25/2017 08/17/2018 Trigger middle finger of right hand 08/25/2017 08/17/2018 Trigger ring finger of left hand 08/25/2017 08/17/2018 Matthew's esophagus 04/01/2016 08/28/2018 Overview: EGD 04/01/2016 Other chronic allergic conjunctivitis 05/30/2015 08/17/2018 Health maintenance examination 09/29/2011 0 02/15/2013 documented as of this encounter (statuses as of 11/04/2022) [facility] History of Past illness Narrative* Problem Noted Date Resolved Date Hematuria 12/15/2018 12/16/2018 Uncontrolled type 2 diabetes mellitus with stage 3 chronic kidney disease, without long-term current use of insulin 01/30/2018 02/24/2019 Dupuytren contracture 08/25/2017 08/17/2018 Trigger middle finger of right hand 08/25/2017 08/17/2018 Trigger ring finger of left hand 08/25/2017 08/17/2018 Matthew's esophagus 04/01/2016 08/28/2018 Overview: EGD 04/01/2016 Other chronic allergic conjunctivitis 05/30/2015 08/17/2018 Health maintenance examination 09/29/2011 0 02/15/2013 documented as of this encounter (statuses as of 11/12/2022) [address]2019 History of Past illness Narrative* Problem Noted Date Resolved Date Hematuria 12/15/2018 12/16/2018 Uncontrolled type 2 diabetes mellitus with stage 3 chronic kidney disease, without long-term current use of insulin 01/30/2018 02/24/2019 Dupuytren contracture 08/25/2017 08/17/2018 Trigger middle finger of right hand 08/25/2017 08/17/2018 Trigger ring finger of left hand 08/25/2017 08/17/2018 Matthew's esophagus 04/01/2016 08/28/2018 Overview: EGD 04/01/2016 Other chronic allergic conjunctivitis 05/30/2015 08/17/2018 Health maintenance examination 09/29/2011 0 02/15/2013 documented as of this encounter (statuses as of 12/13/2022) [place] [id number] History of Past illness Narrative* Problem Noted Date Resolved Date Hematuria 12/15/2018 12/16/2018 Uncontrolled type 2 diabetes mellitus with stage 3 chronic kidney disease, without long-term current use of insulin 01/30/2018 02/24/2019 Dupuytren contracture 08/25/2017 08/17/2018 Trigger middle finger of right hand 08/25/2017 08/17/2018 Trigger ring finger of left hand 08/25/2017 08/17/2018 Matthew's esophagus 04/01/2016 08/28/2018 Overview: EGD 04/01/2016 Other chronic allergic conjunctivitis 05/30/2015 08/17/2018 Health maintenance examination 09/29/2011 0 02/15/2013 documented as of this encounter (statuses as of 12/14/2022) [facility] History of Past illness Narrative* Problem Noted Date Resolved Date Hematuria 12/15/2018 12/16/2018 Uncontrolled type 2 diabetes mellitus with stage 3 chronic kidney disease, without long-term current use of insulin 01/30/2018 02/24/2019 Dupuytren contracture 08/25/2017 08/17/2018 Trigger middle finger of right hand 08/25/2017 08/17/2018 Trigger ring finger of left hand 08/25/2017 08/17/2018 Matthew's esophagus 04/01/2016 08/28/2018 Overview: EGD 04/01/2016 Other chronic allergic conjunctivitis 05/30/2015 08/17/2018 Health maintenance examination 09/29/2011 0 02/15/2013 documented as of this encounter (statuses as of 12/14/2022) [facility] History of Past illness Narrative* Problem Noted Date Resolved Date Hematuria 12/15/2018 12/16/2018 Uncontrolled type 2 diabetes mellitus with stage 3 chronic kidney disease, without long-term current use of insulin 01/30/2018 02/24/2019 Dupuytren contracture 08/25/2017 08/17/2018 Trigger middle finger of right hand 08/25/2017 08/17/2018 Trigger ring finger of left hand 08/25/2017 08/17/2018 Matthew's esophagus 04/01/2016 08/28/2018 Overview: EGD 04/01/2016 Other chronic allergic conjunctivitis 05/30/2015 08/17/2018 Health maintenance examination 09/29/2011 0 02/15/2013 documented as of this encounter (statuses as of 12/24/2022) [facility] History of Past illness Narrative* Problem Noted Date Resolved Date Hematuria 12/15/2018 12/16/2018 Uncontrolled type 2 diabetes mellitus with stage 3 chronic kidney disease, without long-term current use of insulin 01/30/2018 02/24/2019 Dupuytren contracture 08/25/2017 08/17/2018 Trigger middle finger of right hand 08/25/2017 08/17/2018 Trigger ring finger of left hand 08/25/2017 08/17/2018 Matthew's esophagus 04/01/2016 08/28/2018 Overview: EGD 04/01/2016 Other chronic allergic conjunctivitis 05/30/2015 08/17/2018 Health maintenance examination 09/29/2011 0 02/15/2013 documented as of this encounter (statuses as of 01/08/2023) [facility] History of Past illness Narrative* Problem Noted Date Resolved Date Hematuria 12/15/2018 12/16/2018 Uncontrolled type 2 diabetes mellitus with stage 3 chronic kidney disease, without long-term current use of insulin 01/30/2018 02/24/2019 Dupuytren contracture 08/25/2017 08/17/2018 Trigger middle finger of right hand 08/25/2017 08/17/2018 Trigger ring finger of left hand 08/25/2017 08/17/2018 Matthew's esophagus 04/01/2016 08/28/2018 Overview: EGD 04/01/2016 Other chronic allergic conjunctivitis 05/30/2015 08/17/2018 Health maintenance examination 09/29/2011 0 02/15/2013 documented as of this encounter (statuses as of 01/11/2023) [facility] History of Past illness Narrative* Problem Noted Date Resolved Date Hematuria 12/15/2018 12/16/2018 Uncontrolled type 2 diabetes mellitus with stage 3 chronic kidney disease, without long-term current use of insulin 01/30/2018 02/24/2019 Dupuytren contracture 08/25/2017 08/17/2018 Trigger middle finger of right hand 08/25/2017 08/17/2018 Trigger ring finger of left hand 08/25/2017 08/17/2018 Matthew's esophagus 04/01/2016 08/28/2018 Overview: EGD 04/01/2016 Other chronic allergic conjunctivitis 05/30/2015 08/17/2018 Health maintenance examination 09/29/2011 0 02/15/2013 documented as of this encounter (statuses as of 01/27/2023) [facility] History of Past illness Narrative* Problem Noted Date Resolved Date Hematuria 12/15/2018 12/16/2018 Uncontrolled type 2 diabetes mellitus with stage 3 chronic kidney disease, without long-term current use of insulin 01/30/2018 02/24/2019 Dupuytren contracture 08/25/2017 08/17/2018 Trigger middle finger of right hand 08/25/2017 08/17/2018 Trigger ring finger of left hand 08/25/2017 08/17/2018 Matthew's esophagus 04/01/2016 08/28/2018 Overview: EGD 04/01/2016 Other chronic allergic conjunctivitis 05/30/2015 08/17/2018 Health maintenance examination 09/29/2011 0 02/15/2013 documented as of this encounter (statuses as of 01/27/2023) [address]15-2019 History of Past illness Narrative* Problem Noted Date Resolved Date Hematuria 12/15/2018 12/16/2018 Uncontrolled type 2 diabetes mellitus with stage 3 chronic kidney disease, without long-term current use of insulin 01/30/2018 02/24/2019 Dupuytren contracture 08/25/2017 08/17/2018 Trigger middle finger of right hand 08/25/2017 08/17/2018 Trigger ring finger of left hand 08/25/2017 08/17/2018 Matthew's esophagus 04/01/2016 08/28/2018 Overview: EGD 04/01/2016 Other chronic allergic conjunctivitis 05/30/2015 08/17/2018 Health maintenance examination 09/29/2011 0 02/15/2013 documented as of this encounter (statuses as of 02/01/2023) [facility]2019 History of Past illness Narrative* Problem Noted Date Resolved Date Hematuria 12/15/2018 12/16/2018 Uncontrolled type 2 diabetes mellitus with stage 3 chronic kidney disease, without long-term current use of insulin 01/30/2018 02/24/2019 Dupuytren contracture 08/25/2017 08/17/2018 Trigger middle finger of right hand 08/25/2017 08/17/2018 Trigger ring finger of left hand 08/25/2017 08/17/2018 Matthew's esophagus 04/01/2016 08/28/2018 Overview: EGD 04/01/2016 Other chronic allergic conjunctivitis 05/30/2015 08/17/2018 Health maintenance examination 09/29/2011 0 02/15/2013 documented as of this encounter (statuses as of 02/17/2023) [facility] History of Past illness Narrative* Problem Noted Date Resolved Date Hematuria 12/15/2018 12/16/2018 Uncontrolled type 2 diabetes mellitus with stage 3 chronic kidney disease, without long-term current use of insulin 01/30/2018 02/24/2019 Dupuytren contracture 08/25/2017 08/17/2018 Trigger middle finger of right hand 08/25/2017 08/17/2018 Trigger ring finger of left hand 08/25/2017 08/17/2018 Matthew's esophagus 04/01/2016 08/28/2018 Overview: EGD 04/01/2016 Other chronic allergic conjunctivitis 05/30/2015 08/17/2018 Health maintenance examination 09/29/2011 0 02/15/2013 documented as of this encounter (statuses as of 02/23/2023) [facility] Eloy [facility] June 20, 2023 12:32pm Note Date/Time June 20, 2023 11 :55am [facility] Medical Records Department [address] [place] [address] Emergency Department Summary 06/20/23 MR#: [id number] Acct: [id number] Name: DAR ROSE Rep #:[id number] : 1955 67 From: Eloy Graham MD PCP: Dr. Cruz Prado MD Status:REG ER Location: ED HPI History of Present Illness Chief Complaint: Allergic Reaction Detail of Chief Complaint: Bit by insect Informant: patient Onset/Context/Timing Onset: Hours (5 to 10 minutes prior to arrival) Context: Sudden Onset Timing: Continuous Quality: Pruritic area that is raised near the base of the occiput Location: Occiput Current Severity: Mild Maximum Severity: Mild Worsened by: Insect Relieved by: Nothing Associated Symptoms Associated Symptoms: Presently no others Narrative Narrative: Patient is a 4-year-old male with history of paroxysmal supraventricular tachycardia, essential hypertension, dyslipidemia and type 2 diabetes. Patient has had anaphylactic reaction to hymenoptera envenomation in the past. He is uncertain what he may have been stung/bit by. He presents because he was close to the hospital and has itching and swelling of the area. He denies systemic symptoms i.e. swelling of lips tongue or throat. He denies shortness of breath. Nuys chest discomfort. Denies orthostatic symptoms. He denies nausea, vomiting or diarrhea. Patient was not carrying his EpiPen. Prior similar symptoms: Yes Recent Illness/Hospitalization: No PFSH PFSH Medical History Anxiety Back problem BPH (benign prostatic hyperplasia) COVID-19 virus detected (07/06/21) Depression Dyslipidemia Essential hypertension GERD (gastroesophageal reflux disease) Paroxysmal supraventricular tachycardia Superficial spreading malignant melanoma of skin Type 2 diabetes mellitus Home Medications metformin 1,000 mg tablet 1,000 mg PO BIDCM 10/21/21 [History Last Taken Unknown] epinephrine 0.3 mg/0.3 mL injection, auto-injector 0.3 ml subcut ONCE PRN anaphylaxis 10/20/22 [History Last Taken Unknown] esomeprazole magnesium 40 mg capsule,delayed release 40 mg PO DAILY 10/20/22 [History Last Taken Unknown] fluticasone propionate 50 mcg/actuation nasal spray,suspension 2 spray intranasal DAILY PRN nasal congestion 10/20/22 [History Last Taken Unknown] gabapentin 100 mg capsule 200 mg PO DAILY 10/20/22 [History Last Taken Unknown] ropinirole 0.5 mg tablet 0.5 mg PO .COMPLEX 10/20/22 [History Last Taken Unknown] trazodone 100 mg tablet 100 mg PO QHS 10/20/22 [History Last Taken Unknown] carvedilol 25 mg tablet 25 mg PO BID #180 tabs 03/29/23 [Rx Last Taken Unknown] losartan 100 mg tablet 100 mg PO DAILY #90 tabs 03/29/23 [Rx Last Taken Unknown] amlodipine 10 mg tablet 10 mg PO DAILY #90 tabs 05/26/23 [Rx Last Taken Unknown] famotidine 20 mg tablet (Pepcid) 20 mg PO DAILY #7 tabs 06/02/23 [Rx Last Taken Unknown] prednisone 20 mg tablet 40 mg (2 x 20 mg) PO DAILY #8 tabs 06/02/23 [Rx Last Taken Unknown] Allergy/AdvReac Type Severity Reaction Status Date / Time tramadol Allergy Mild rash Verified 06/20/23 11:40 amitriptyline Allergy Hives Verified 06/20/23 11:40 bee venom protein (honey bee) Allergy Anaphylaxis Verified 06/20/23 11:40 Family History Mother Cancer lung Father Alzheimer disease Surgical History History of colonoscopy History of prostatectomy History of radiofrequency ablation procedure for cardiac arrhythmia (2013) History of repair of left rotator cuff History of tonsillectomy Social History Smoking Status: Former smoker how long ago did patient quit smokin years ago alcohol intake: current alcohol intake frequency: holidays/special occasions only substance use type: does not use caffeine: Yes Type: coffee ROS ROS ED Constitutional Constitutional ED: Denies chills or fever(s) Eyes Eyes: Denies blurry vision or change in vision ENT ENT ED: Denies rhinorrhea or sore throat Cardiovascular Cardiovascular: Denies chest pain or palpitations Respiratory/Chest Respiratory/Chest: Denies dyspnea or dyspnea on exertion Gastrointestinal Gastrointestinal: Denies diarrhea, nausea or vomiting Musculoskeletal Musculoskeletal: Denies arthralgias or myalgias Integumentary Reports rash Neurologic Neurologic: Denies paresthesias Hematologic/Lymphatic Hematologic/Lymphatic: Reports systems reviewed and no addt'l complaints, exceptas documented Allergic/Immunologic Allergic/Immunologic ED: Denies mouth swelling, tongue swelling or urticaria EXAM Physical Exam Const Vital Signs: 06/20/23 11:41 Temperature 98.6 F Temperature Source Temporal Pulse Rate 84 Respiratory Rate 17 Blood Pressure 141/88 H Blood Pressure Mean 105 Pulse Ox 96 Oxygen Delivery Method Room Air Positive well nourished and well developed General Appearance ED: well developed and NAD; Negative for cyanotic, diaphoretic or pallor HEENT Reports moist mucous membranes HEENT Narrative: Head is atraumatic normocephalic. Patient does have a raised area with erythemawhere he was stung. There is no evidence of angioedema. Eyes PERRL and EOMs intact bilaterally General Eye ED: Negative for pale conjunctiva or scleral icterus Neck no lymphadenopathy, supple and no JVD Neck Narrative: Trachea is midline. There is no in-store expiratory stridor. There is no dysphonia. Chest Wall inspection of chest normal and palpation of chest normal Resp normal respiratory effort and clear to auscultation bilaterally Cardio regular rate, regular rhythm, S1 normal heart sound, S2 normal heart sound and no murmurs GI normal to inspection, nondistended, normoactive bowel sounds, non-tender, non-distended and no masses; Negative for hepatosplenomegaly Back/Spine Back/Spine Narrative: Inspection is normal. Extremity normal to inspection General Extremety ED: Negative for edema or tenderness General Extremity: Negative for edema Neuro oriented x3, CN's II-XII intact bilaterally and no sensory deficits noted Sensorium / Orientation: alert Psych mental status grossly normal Skin no wounds and skin turgor normal Skin Narrative: There are no hives. General Skin Exam: Negative for jaundice or pallor MDM MDM MDM Narrative Medical decision making narrative: Patient was placed on the monitor. IV was established. We will treat with H1 H2 estelita and systemic steroids. Since patient only has a raised area of 2 to 3 cm in diameter and no other findings and no systemic symptoms will not at thistime treat with epinephrine. Treatment and Re-Evaluation :: Was reevaluated at 1230. Patient has no systemic symptoms. His itching is improved. Will discharge to home. Discharge Plan Triage Chief Complaint: Allergic Reaction ED Provider: Eloy Graham Dx/Rx/DC Orders Clinical Impression: Allergic reaction to insect sting, Essential hypertension, Type 2 diabetes mellitus, Dyslipidemia Instructions: Allergy Medicines: [id number] Prescriptions: No Action trazodone 100 mg tablet 100 mg PO QHS Patient Comments: Take 1 tablet by mouth daily at bedtime for 14 days. esomeprazole magnesium 40 mg capsule,delayed release(DR/EC) 40 mg PO DAILY ropinirole 0.5 mg tablet 0.5 mg PO .COMPLEX Rx Instructions: 0.5 mg orally; Take one tablet in an evening for 2 weeks then go to two in the evening. gabapentin 100 mg capsule 200 mg PO DAILY Patient Comments: TAKE 1 CAPSULE in the evening for one week then TAKE 2 CAPSULES DAILY FOR 1 WEEK, then TAKE 3 CAPSULES DAILY fluticasone propionate 50 mcg/actuation spray,suspension 2 spray intranasal DAILY PRN (Reason: nasal congestion) Patient Comments: Use 2 Sprays in each nostril once daily. Rinse mouth after use. epinephrine 0.3 mg/0.3 mL auto-injector 0.3 ml subcut ONCE PRN (Reason: anaphylaxis) Patient Comments: Inject 0.3 mL intramuscularly as needed. metformin 1,000 mg tablet 1,000 mg PO BIDCM prednisone 20 mg tablet 40 mg PO DAILY Qty: 8 0RF famotidine [Pepcid] 20 mg tablet 20 mg PO DAILY Qty: 7 0RF Rx Instructions: for allergic reaction carvedilol 25 mg tablet 25 mg PO BID Qty: 180 3RF Rx Instructions: must administer with a meal/food losartan 100 mg tablet 100 mg PO DAILY Qty: 90 3RF amlodipine 10 mg tablet 10 mg PO DAILY Qty: 90 3RF Primary Care Provider: Cruz Prado Referrals: Cruz Prado MD [Primary Care Provider] - As Needed Activity Restrictions/Additional Instructions: You should carry your EpiPen with you at all times. Disposition Disposition: Home, Self Care What to do if you have Problems For any increased pain, shortness of breath, bleeding, nausea or vomiting, chestpain, or any unexpected problems, contact your Primary Care Provider. Call [facility] ([phone]) or report to the closest Emergency Room. Call 911 if necessary. 06/20/23 1232 <Electronically signed by Eloy Graham MD> Cosigner Signature (if applicable): CC: Dr. Cruz Prado MD ~ Signed [facility] Work Phone: Evaluation note* Diagnosis Controlled type 2 diabetes mellitus with stage 3 chronic kidney disease, without long-term current use of insulin (HCC) [facility] Diagnosis Irritation of right eye- Primary Other ill-defined disorder of eye [facility] Diagnosis Impotence of organic origin- Primary Controlled type 2 diabetes mellitus with stage 3 chronic kidney disease, without long-term current use of insulin (HCC) [facility]* Diagnosis Type 2 diabetes mellitus with retinopathy, without long-term current use of insulin, macular edema presence unspecified, unspecified laterality, unspecified retinopathy severity (HCC)- Primary [facility]* Diagnosis Onset Date Resolution Status Dyslipidemia chronic Essential hypertension chron ic Paroxysmal supraventricular tachycardia chronic Dyslipidemia chronic Essential hypertension chron ic Paroxysmal supraventricular tachycardia chronic [facility] Work Phone: Evaluation note* Diagnosis Impotence of organic origin- Primary [facility]* Diagnosis Chronic insomnia Insomnia, unspecified [facility]* Diagnosis Head congestion- Primary Other diseases of nasal cavity and sinuses [facility] Diagnosis Hypersomnia- Primary Hypersomnia, unspecified Fatigue, unspecified type Snoring Other dyspnea and respiratory abnormality 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 Matthew's esophagus Abdominal pain, unspecified abdominal location Mixed hyperlipidemia Essential hypertension, benign Type 2 diabetes mellitus with retinopathy, without long-term current use of insulin, macular edema presence unspecified, unspecified laterality, unspecified retinopathy severity (HCC) [facility] Diagnosis History of colonic polyps- Primary Personal history of colonic polyps Abdominal pain, unspecified abdominal location 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 Matthew's esophagus History of malignant melanoma Personal history of malignant melanoma of skin [facility] Diagnosis Burning sensation of foot- Primary Numbness and tingling of foot Disturbance of skin sensation Pain in both lower extremities Foot pain, bilateral Pain in limb [facility] Diagnosis Abdominal pain, unspecified abdominal location History of colon polyps Personal history of colonic polyps Matthew's esophagus with dysplasia Matthew's esophagus [facility] Diagnosis 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- Primary Matthew's esophagus Chronic superficial gastritis without bleeding Atrophic gastritis without mention of hemorrhage Diverticulosis Diverticulosis of colon (without mention of hemorrhage) [facility] Diagnosis Matthew's esophagus with dysplasia- Primary Matthew's esophagus Abdominal pain, unspecified abdominal location History of colon polyps Personal history of colonic polyps documented [facility]* Diagnosis Sinus congestion- Primary Other diseases of nasal cavity and sinuses Acute upper respiratory infection, unspecified documented [facility]* Diagnosis Skin infection- Primary Unspecified local infection of skin and subcutaneous tissue documented in this encounter [facility]* Diagnosis Anxiety Anxiety state, unspecified documented [facility]* Diagnosis Onset Date Resolution Status Dyslipidemia chronic Essential hypertension chron ic Paroxysmal supraventricular tachycardia [facility] Work Phone: Evaluation note* Diagnosis Type 2 diabetes mellitus with retinopathy, without long-term current use of insulin, macular edema presence unspecified, unspecified laterality, unspecified retinopathy severity (HCC) Essential hypertension, benign Gastroesophageal reflux disease with esophagitis without hemorrhage Iron deficiency anemia, unspecified iron deficiency anemia type Mixed hyperlipidemia Medication management Encounter for long-term (current) use of other medications Well adult exam Routine general medical examination at a health care facility [facility] Diagnosis 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) [facility] Diagnosis Well adult exam- Primary Routine general medical examination at a health care facility Type 2 diabetes mellitus with retinopathy, without long-term current use of insulin, macular edema presence unspecified, unspecified laterality, unspecified retinopathy severity (HCC) 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) SVT (supraventricular tachycardia) (HCC) Other specified cardiac dysrhythmias Essential hypertension, benign Mixed hyperlipidemia Iron deficiency anemia, unspecified iron deficiency anemia type Gastroesophageal reflux disease with esophagitis without hemorrhage 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 Matthew's esophagus Anxiety Anxiety state, unspecified Chronic insomnia Insomnia, unspecified Malignant melanoma of torso excluding breast (HCC) Retinopathy Background retinopathy, unspecified Living will on file at physician's office Advance directive discussed with patient Other specified counseling History of BPH Personal history of other specified diseases Pain in both lower extremities Encounter for immunization Need for other specified prophylactic vaccination against single bacterial disease [facility] Diagnosis Lumbar radiculopathy Thoracic or lumbosacral neuritis or radiculitis, unspecified Herniated lumbar intervertebral disc Displacement of lumbar intervertebral disc without myelopathy [facility] Diagnosis Fatigue, unspecified type- Primary Diarrhea, unspecified type [facility]* Diagnosis Arthritis of lumbar spine Lumbosacral spondylosis without myelopathy [facility]* Diagnosis Conjunctivitis of left eye, unspecified conjunctivitis type- Primary [facility]* Diagnosis Pain in both lower extremities Greater trochanteric bursitis of both hips Enthesopathy of hip region Acute midline low back pain without sciatica Muscle weakness of lower extremity Muscle weakness (generalized) [facility]* Diagnosis Chronic insomnia Insomnia, unspecified Anxiety Anxiety state, unspecified [facility] Diagnosis Pain in both lower extremities- Primary Greater trochanteric bursitis of both hips Enthesopathy of hip region Acute midline low back pain without sciatica Muscle weakness of lower extremity Muscle weakness (generalized) [facility] Diagnosis Pain in both lower extremities- Primary Greater trochanteric bursitis of both hips Enthesopathy of hip region Acute midline low back pain without sciatica Muscle weakness of lower extremity Muscle weakness (generalized) [facility] noteNo assessment information [facility]WK[facility] Work [facility]: Evaluation note* Diagnosis Irritable bowel syndrome with both constipation and diarrhea- Primary Encounter for immunization Need for other specified prophylactic vaccination against single bacterial disease Controlled type 2 diabetes mellitus with stage 3 chronic kidney disease, without long-term current use of insulin (HCC) [facility] URI, acute- Primary Acute upper respiratory infections of unspecified site [facility]* Diagnosis 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)- Primary Other diabetic neurological complication associated with type 2 diabetes mellitus (HCC) Callus of foot Corns and callosities [facility]* Diagnosis Eye problem- Primary Other eye problems [facility]* Diagnosis Trigger ring finger of right hand- Primary Trigger finger (acquired) 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 [facility] Diagnosis Trigger ring finger of right hand- Primary Trigger finger (acquired) Trigger ring finger of right hand Trigger finger (acquired) [facility] Diagnosis Trigger ring finger of right hand- Primary Trigger finger (acquired) 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 [facility] Diagnosis Pain of maxillary sinus- Primary [facility]* Diagnosis Callus of foot Corns and callosities [facility]* Diagnosis Irritable bowel syndrome with both constipation and diarrhea- Primary [facility]* Diagnosis Acute non-recurrent sinusitis, unspecified location- Primary [facility]* Diagnosis Encounter to obtain excuse from work- Primary Acute non-recurrent sinusitis, unspecified location [facility]* Diagnosis Chronic sinusitis, unspecified location- Primary Impacted cerumen of left ear Impacted cerumen Controlled type 2 diabetes mellitus with stage 3 chronic kidney disease, without long-term current use of insulin ([facility]) [facility]* Diagnosis 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)- Primary Callus of foot Corns and callosities [facility]* Diagnosis Scar pain- Primary Scar condition and fibrosis of skin Chronic insomnia Insomnia, unspecified Irritable bowel syndrome with both constipation and diarrhea [facility]* Diagnosis 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)- Primary Venous insufficiency Unspecified venous (peripheral) insufficiency [facility]* Diagnosis Essential hypertension, benign- Primary Controlled type 2 diabetes mellitus with stage 3 chronic kidney disease, without long-term current use of insulin (HCC) Type 2 diabetes mellitus with retinopathy, without long-term current use of insulin, macular edema presence unspecified, unspecified laterality, unspecified retinopathy severity ([facility]) Gastroesophageal reflux disease with esophagitis without hemorrhage Stage 3a chronic kidney disease ([facility]) SVT (supraventricular tachycardia) ([facility]) Other specified cardiac dysrhythmias 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) [facility] Diagnosis Bilateral hip pain Pain in joint, pelvic region and thigh [facility] Diagnosis Acute midline low back pain without sciatica [facility]* Diagnosis RUQ abdominal pain Abdominal pain, right upper quadrant [facility]* Diagnosis Right flank pain Abdominal pain, unspecified site [facility]* Diagnosis Gastroesophageal reflux disease with esophagitis without hemorrhage- Primary [facility] Diagnosis Gastroesophageal reflux disease with esophagitis without hemorrhage Chronic insomnia Insomnia, unspecified Controlled type 2 diabetes mellitus with stage 3 chronic kidney disease, without long-term current use of insulin (HCC) ETD (Eustachian tube dysfunction), bilateral Seasonal allergic rhinitis due to other allergic trigger [facility] Diagnosis Controlled type 2 diabetes mellitus with stage 3 chronic kidney disease, without long-term current use of insulin (HCC) [facility] Diagnosis Controlled type 2 diabetes mellitus with stage 3 chronic kidney disease, without long-term current use of insulin (HCC)- Primary 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) [facility] Diagnosis Controlled type 2 diabetes mellitus with stage 3 chronic kidney disease, without long-term current use of insulin (HCC) 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) [facility] Diagnosis Controlled type 2 diabetes mellitus with stage 3 chronic kidney disease, without long-term current use of insulin (HCC)- Primary [facility] Diagnosis Chronic insomnia Insomnia, unspecified [facility] Diagnosis 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)- Primary Type 2 diabetes mellitus with retinopathy, without long-term current use of insulin, macular edema presence unspecified, unspecified laterality, unspecified retinopathy severity (HCC) [facility] Diagnosis Controlled type 2 diabetes mellitus with stage 3 chronic kidney disease, without long-term current use of insulin (HCC)- Primary [facility] Diagnosis Acute recurrent sinusitis, unspecified location- Primary [facility] Diagnosis Controlled type 2 diabetes mellitus with stage 3 chronic kidney disease, without long-term current use of insulin ([facility]) 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) Screening for depression [facility] Diagnosis Well adult exam- Primary Routine general medical examination at a health care facility Type 2 diabetes mellitus with retinopathy, without long-term current use of insulin, macular edema presence unspecified, unspecified laterality, unspecified retinopathy severity ([facility]) Controlled type 2 diabetes mellitus with stage 3 chronic kidney disease, without long-term current use of insulin (HCC) Stage 3a chronic kidney disease ([facility]) Diabetic eye exam ([facility]) Type II or unspecified type diabetes mellitus without mention of complication, not stated as uncontrolled Essential hypertension, benign Mixed hyperlipidemia Peripheral sensory neuropathy due to type 2 diabetes mellitus ([facility]) SVT (supraventricular tachycardia) ([facility]) Other specified cardiac dysrhythmias Gastroesophageal reflux disease with esophagitis without hemorrhage Iron deficiency anemia, unspecified iron deficiency anemia type Anxiety Anxiety state, unspecified Chronic insomnia Insomnia, unspecified Metabolic dysfunction-associated steatohepatitis (MASH) Malignant melanoma of torso excluding breast (HCC) Need for vaccination Need for prophylactic vaccination and inoculation against unspecified single disease Screening for depression Medication management Encounter for long-term (current) use of other medications [facility] Diagnosis Hypercalcemia- Primary [facility]* Diagnosis Diabetic polyneuropathy associated with type 2 diabetes mellitus (HCC)- Primary Arthritis of joint of toe Callus of foot Corns and callosities [facility]* Diagnosis Rhinosinusitis- Primary Unspecified sinusitis (chronic) [facility] Diagnosis Chronic insomnia Insomnia, unspecified [facility] Diagnosis Acute non-recurrent pansinusitis- Primary Seasonal allergic rhinitis due to other allergic trigger Acute cough [facility] Diagnosis Diabetic polyneuropathy associated with type 2 diabetes mellitus (HCC)- Primary Arthritis of joint of toe Callus of foot Corns and callosities Bursitis of right foot Contusion of third toe of left foot, initial encounter [facility]* Diagnosis Type 2 diabetes mellitus with retinopathy, without long-term current use of insulin, macular edema presence unspecified, unspecified laterality, unspecified retinopathy severity (HCC)- Primary Chronic insomnia Insomnia, unspecified Controlled type 2 diabetes mellitus with stage 3 chronic kidney disease, without long-term current use of insulin (HCC) 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 If you have recurrence of your facial swelling/mouth swelling please use your EpiPen and then call 911.[facility] Work Phone: Hospital Discharge instructions Additional Instructions You should carry your EpiPen with you at all times.[facility] Work Phone: Reason for referral (narrative)* Outpatient Procedure (Routine) - Pending Review Specialty Diagnoses / Procedures Referred By Aston reyes [facility] Diagnoses Burning sensation of foot Numbness and tingling of foot Pain in both lower extremities Foot pain, bilateral Procedures PVR LEG W/EXC [facility]ADD[facility] N-INVAS PHYSIOLOGIC STD LXTR ART COMPL BI Cruz Prado MD [address] [place] [address] [facility] [address] [place] [address] Referral ID Status Reason Start Date Expiration Date Visits Requested Visits Authorized [id number] Pending Review Auto-Generat ed Referral 05/12/2022 05/12/2023 1 1 [facility] for referral (narrative)* Outpatient Procedure (Routine) - Closed Specialty Diagnoses / Procedures Referred By Aston reyes Referred To [facility] Diagnoses Matthew's esophagus with dysplasia Procedures EGD DIAGNOSTIC ESOPHAGOGASTRODUODENOSC OPY TRANSORAL DIAGNOSTIC Izabela Langford PA-C [address] [place] [address] [facility] [address] [place] [address] Referral ID Status Reason Start Date Expiration Date V isits Requested Visits Authorized [id number] Closed Auto-Generate d Referral 03/31/2022 03/31/2023 1 1 * Outpatient Procedure (Routine) - Closed Specialty Diagnoses / Procedures Referred By Lonnieadalberto t Referred To Contact [facility] Diagnoses Abdominal pain, unspecified abdominal location History of colon polyps Procedures COLONOSCOPY SCREENING COLONOSCOPY FLX DX W/COLLJ SPEC WHEN PFJACQUELINED Izabela Langford PA-C [address] [place] [address] [facility] [address] [place] [address] Referral ID Status Reason Start Date Expiration Date V isits Requested Visits Authorized [id number] Closed Auto-Generate d Referral 03/31/2022 03/31/2023 1 1 [facility] for referral (narrative)* Outpatient Procedure (Routine) - Closed Specialty Diagnoses / Procedures Referred By Lonnieadalberto t Referred To Contact [facility] Diagnoses Matthew's esophagus with dysplasia Procedures EGD DIAGNOSTIC ESOPHAGOGASTRODUODENOSC OPY TRANSORAL DIAGNOSTIC Izabela Langford PA-C [address] [place] [address] [address] Referral ID Status Reason Start Date Expiration Date V isits Requested Visits Authorized [id number] Closed Auto-Generate d Referral 03/31/2022 03/31/2023 1 1 * Outpatient Procedure (Routine) - Closed Specialty Diagnoses / Procedures Referred By Lonnieadalberto t Referred To Contact [facility] Diagnoses Abdominal pain, unspecified abdominal location History of colon polyps Procedures COLONOSCOPY SCREENING COLONOSCOPY FLX DX W/COLLJ SPEC WHEN Izabela Donohue PA-C [address] [place] [address] [facility] [address] [place] [address] Referral ID Status Reason Start Date Expiration Date V isits Requested Visits Authorized [id number] Closed Auto-Generate d Referral 03/31/2022 03/31/2023 1 1 [facility] for referral (narrative)* Outpatient Procedure (Routine) - Authorized Specialty Diagnoses / Procedures Referred By Contac t [facility] Diagnoses Pain in both lower extremities Procedures US LEG VEIN DVT [facility] DUP-SCAN XTR VEINS COMPLETE BILATERAL STUDY Cruz Prado MD [address] [place], [place] [id number] [facility] [address] [place] [address] Referral ID Status Reason Start Date Expiration Date Visits Requested Visits Authorized [id number] Authorized Auto-Generat ed Referral 2 10/13/2023 1 1 [facility] for referral (narrative)* Diagnostic Procedure Only (Routine) - Closed Specialty Diagnoses / Procedures Referred By Contac t Referred To Contact XR IMAGING Diagnoses Bilateral hip pain Procedures XR HIP BILATERAL 5V PEL/AP/LAT EACH HIP RADEX HIPS BILATERAL WITH PELVIS MINIMUM 5 VIEWS Cruz Prado MD [address] [place] [address] [place] [address] Referral ID Status Reason Start Date Expiration Date V isits Requested Visits Authorized [id number] Closed Auto-Generate d Referral 01/21/2023 02/20/2024 1 1 [facility] for referral (narrative)* Diagnostic Procedure Only (Routine) - Closed Specialty Diagnoses / Procedures Referred By Contac t Referred To Contact XR IMAGING Diagnoses Acute midline low back pain without sciatica Procedures XR LUMBAR PARS DEFECT 4V AP/LAT/BOTH OBL RADEX SPINE LUMBOSACRAL MINIMUM 4 VIEWS Cruz Prado MD [address] [place] [address] [place] [address] Referral ID Status Reason Start Date Expiration Date V isits Requested Visits Authorized [id number] Closed Auto-Generate d Referral 12/09/2022 01/08/2024 1 1 [facility] for referral (narrative)* Diagnostic Procedure Only (Routine) - Closed Specialty Diagnoses / Procedures [facility] To [facility] Diagnoses RUQ abdominal pain Procedures XR ABDOMEN 1V SUPINE RADIOLOGIC EXAM ABDOMEN 1 VIEW Cruz Prado MD [address] [place] [address] [place] [address] Referral ID Status Reason Start Date Expiration Date V isits Requested Visits Authorized [id number] Closed Auto-Generate d Referral 07/31/2021 08/30/2022 1 1 [facility] for referral (narrative)No reason for referral [facility] N[facility]* Outpatient Procedure (Routine) - Closed Specialty Diagnoses / Procedures [facility] Diagnoses Matthew's esophagus with dysplasia Procedures EGD DIAGNOSTIC ESOPHAGOGASTRODUODENOSC OPY TRANSORAL DIAGNOSTIC Izabela Langford PA-C [address] [place] [address] [facility] [address] [place] [address] Referral ID Status Reason Start Date Expiration Date V isits Requested Visits Authorized [id number] Closed Auto-Generate d Referral 03/31/2022 03/31/2023 1 1 [facility] for visit Narrative* Auth/Cert Specialty Diagnoses / Procedures [facility] Diagnoses 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 Encounter for screening for malignant neoplasm of colon Altered bowel habits Encounter for screening for malignant neoplasm of colon 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 K22.70 (ICD-10-CM) - 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 Procedures COLONOSCOP W/ OR W/O BRSH SPEC EGD W/O OR W/BRUSH/WASH COLONOSCOPY EGD [facility] [address] [place] [address] Referral ID Status Reason Start Date Expiration Date Visits Re quested Visits Authorized [id number] 1 1 [facility] for visit Narrative* Diagnostic Procedure Only (Routine) - Closed Specialty Diagnoses / Procedures Referred By Contac t Referred To Contact XR IMAGING Diagnoses Bilateral hip pain Procedures XR HIP BILATERAL 5V PEL/AP/LAT EACH HIP RADEX HIPS BILATERAL WITH PELVIS MINIMUM 5 VIEWS Cruz Prado MD [address] [place] [address] [place] [address] Referral ID Status Reason Start Date Expiration Date V isits Requested Visits Authorized [id number] Closed Auto-Generate d Referral 01/21/2023 02/20/2024 1 1 [facility] for visit Narrative* Diagnostic Procedure Only (Routine) - Closed Specialty Diagnoses / Procedures Referred By Contac t Referred To Contact XR IMAGING Diagnoses Acute midline low back pain without sciatica Procedures XR LUMBAR PARS DEFECT 4V AP/LAT/BOTH OBL RADEX SPINE LUMBOSACRAL MINIMUM 4 VIEWS Cruz Prado MD [address] [place] [address] [place] [address] Referral ID Status Reason Start Date Expiration Date V isits Requested Visits Authorized [id number] Closed Auto-Generate d Referral 12/09/2022 01/08/2024 1 1 [facility] for visit Narrative* Diagnostic Procedure Only (Routine) - Closed Specialty Diagnoses / Procedures Referred By Contac t Referred To Contact XR IMAGING Diagnoses RUQ abdominal pain Procedures XR ABDOMEN 1V SUPINE RADIOLOGIC EXAM ABDOMEN 1 VIEW Cruz Prado MD [address] [place] [address] [place] [address] Referral ID Status Reason Start Date Expiration Date V isits Requested Visits Authorized [id number] Closed Auto-Generate d Referral 07/31/2021 08/30/2022 1 1 [facility] Summary Purpose Family History No Family History Records Found Relationship Condition Age at Onset Recorded Date/T cori mother Malignant neoplasm Unknown father Alzheimer's disease Unknown Relationship Condition Age at Onset Recorded Date/T cori mother Malignant neoplasm Unknown father Alzheimer's disease Unknown son Ulcerative colitis Unknown Advance Directives No Advanced Directives Records FoundDocuments on File Type Date Recorded Patient Online Content Coordinator Expl anation Advance Directive(s) 07/01/2021 11:41 AM Advance Directive(s) 09/10/2020 9:35 AM Advance Directive(s) 10/18/2019 8:48 AM Advance Directive(s) 02/05/2019 1:07 PM Advance Directive(s) 02/02/2019 10:16 AM wa iting to be scanned Advance Directive(s) 08/21/2018 8:55 AM Documents on File Type Date Recorded Patient Online Content Coordinator Expl anation Advance Directive(s) 07/01/2021 11:41 AM Advance Directive(s) 09/10/2020 9:35 AM Advance Directive(s) 10/18/2019 8:48 AM Advance Directive(s) 02/05/2019 1:07 PM Advance Directive(s) 02/02/2019 10:16 AM wa iting to be scanned Advance Directive(s) 08/21/2018 8:55 AM Advance Directive Response Recorded Date/ Time Living Will No February 03, 2022 10:22am Power of Drill Runner Yes February 03 10:22am Documents on File Type Date Recorded Patient Online Content Coordinator Expl anation Advance Directive(s) 06/01/2022 4:03 PM Advance Directive(s) 07/01/2021 11:41 AM Advance Directive(s) 09/10/2020 9:35 AM Advance Directive(s) 10/18/2019 8:48 AM Advance Directive(s) 02/05/2019 1:07 PM Advance Directive(s) 02/02/2019 10:16 AM wa iting to be scanned Advance Directive(s) 08/21/2018 8:55 AM Documents on File Type Date Recorded Patient Online Content Coordinator Expl anation Advance Directive(s) 02/05/2019 1:07 PM Documents on File Type Date Recorded Patient Online Content Coordinator Expl anation Advance Directive(s) 02/05/2019 1:07 PM Advance Directive Response Recorded Date/ Time Living Will No May 10, 2023 6:55pm Power of Drill Runner No May 10 6:55pm Advance Directive Response Recorded Date/ Time Living Will No June 02, 2023 3:27pm Power of Drill Runner Yes June 02 3:27pm Name of Medical Power of Drill Runner CATHERINE ROSE [place] 3rd, 2023 3:27pm Advance Directive Response Recorded Date/ Time Name of Medical Power of Drill Runner CATHERINE ROSE June 02, 2023 3:27pm Name of Medical Power of Drill Runner CATHERINE SPARKS June 20, 2023 11:43am Living Will Yes June 20 11:43am Power of Drill Runner Yes June 20, 2 023 11:43am Reason for Referral Specialty Diagnoses / Procedures Referred By Contac t Referred To Contact Endocrinology Diagnoses Type 2 diabetes mellitus with retinopathy, without long-term current use of insulin, macular edema presence unspecified, unspecified laterality, unspecified retinopathy severity (HCC) Controlled type 2 diabetes mellitus with stage 3 chronic kidney disease, without long-term current use of insulin (HCC) Procedures CONSULT TO ENDOCRINOLOGY OFFICE/OUTPATIENT [facility] 60-74 MINUTES Cruz Prado MD [address] [place] [address] Referral ID Status Reason Start Date Expiration Date Visits Requested Visits Authorized [id number] Authorized PCP Requested Referral 01/29/2022 01/29/2023 1 1 Specialty Diagnoses / Procedures Referred By Contac t Referred To Contact General Surgery Diagnoses Abdominal pain, unspecified abdominal location 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 Procedures CONSULT TO GENERAL SURGERY OFFICE/OUTPATIENT [facility] 60-74 MINUTES Anette Arreola PA-C [address] [place] [address] Referral ID Status Reason Start Date Expiration Date Visits Requested Visits Authorized [id number] Authorized PCP Requested Referral 03/16/2022 03/16/2023 1 1 Specialty Diagnoses / Procedures Referred By Contac t Referred To Contact [facility] Diagnoses Pain in both lower extremities Greater trochanteric bursitis of both hips Acute midline low back pain without sciatica Muscle weakness of lower extremity Procedures PT REHAB FOLLOW UP ORDER THERAPEUTIC EXERCISES RE, EA 15 MIN. Pt [facility] [address] [place] [address] [facility] [address] [place] [address] Referral ID Status Reason Start Date Expiration Date Visits Requested Visits Authorized [id number] Pending Review PCP Requested Referral Auto-Generate d Referral 01/10/2023 04/10/2023 1 1 Referral ID Status Reason Start Date Expiration Date Visits Requested Visits Authorized [id number] Pending Review PCP Requested Referral Auto-Generate d Referral 02/15/2023 05/16/2023 1 1 Specialty Diagnoses / Procedures Referred By Contac t Referred To Contact Gastroenterology Diagnoses Irritable bowel syndrome with both constipation and diarrhea Procedures CONSULT TO GASTROENTEROLOGY OFFICE/OUTPATIENT [facility] 60 MINUTES Lorie Moses APRN.CNP [address] [place] [address] Referral ID Status Reason Start Date Expiration Date Visits Requested Visits Authorized [id number] Authorized PCP Requested Referral 01/31/2024 01/30/2025 1 1 Specialty Diagnoses / Procedures Referred By Contac t Referred To Contact Diagnoses Controlled type 2 diabetes mellitus with stage 3 chronic kidney disease, without long-term current use of insulin (HCC) Anette Arreola PA-C [address] [place] [address] Referral ID Status Reason Start Date Expiration Date Visits Re quested Visits Authorized [id number] Closed 1 1 Specialty Diagnoses / Procedures Referred By Contac t Referred To Contact Diagnoses Controlled type 2 diabetes mellitus with stage 3 chronic kidney disease, without long-term current use of insulin (HCC) 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) Cruz Prado MD [address] [place] [address] Referral ID Status Reason Start Date Expiration Date Visits Re quested Visits Authorized [id number] Closed 1 1 Specialty Diagnoses / Procedures Referred By Contac t Referred To Contact Endocrinology Diagnoses 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, without long-term current use of insulin, macular edema presence unspecified, unspecified laterality, unspecified retinopathy severity (HCC) Procedures CONSULT TO ENDOCRINOLOGY OFFICE/OUTPATIENT [facility] 60 MINUTES Cruz Prado MD [address] [place] [address] Referral ID Status Reason Start Date Expiration Date Visits Requested Visits Authorized [id number] Authorized PCP Requested Referral 11/07/2024 11/07/2025 1 1 Chief Complaint and Reason for Visit Chief Complaint EST CARE PREVIOUS AB LASION ARRYTHMIA 6 wk fu eye problem Reason for Visit Dyslipidemia Essential hypertension Paroxysmal supraventricular tachycardia Dyslipidemia Essential hypertension Paroxysmal supraventricular tachycardia Chief Complaint 6 M FU ANESTHESIA/PARESTHESIA OF SKIN Reason for Visit Dyslipidemia Essential hypertension Paroxysmal supraventricular tachycardia Chief Complaint WASP STING Chief Complaint WASP STING bee sting Chief Complaint WASP STING bee sting ALLERGIC RXN Chief Complaint Admit Date Diabetes January 28, 2025 9:3 5am 3 M FU April 29, 2025 9:01 am Reason for Visit Admit Date CKD (chronic kidney disease) January 28, 2025 9:35am Dyslipidemia January 28, 2025 9:3 5am Essential hypertension January 28, 2025 9:35am Microalbuminuria January 28, 2025 9:3 5am Neuropathy January 28, 2025 9:3 5am Overweight January 28, 2025 9:3 5am Type 2 diabetes mellitus January 28 9:35am Chief Complaint Admit Date Diabetes January 28, 2025 9:3 5am 3 M FU April 29, 2025 9:01 am 6 M FU May 28, 2025 8:42 am Reason for Visit Admit Date CKD (chronic kidney disease) January 28, 2025 9:35am Dyslipidemia January 28, 2025 9:3 5am Essential hypertension January 28, 2025 9:35am Microalbuminuria January 28, 2025 9:3 5am Neuropathy January 28, 2025 9:3 5am Overweight January 28, 2025 9:3 5am Type 2 diabetes mellitus January 28 9:35am CKD (chronic kidney disease) April 29, 2025 9:01am Dyslipidemia April 29, 2025 9:01 am Essential hypertension April 29, 2025 9 :01am Microalbuminuria due to type 2 diabetes mellitus April 29, 2025 9:01am Overweight April 29, 2025 9:01 am Type 2 diabetes mellitus April 29, 2025 9:01am Chief Complaint Admit Date 3 M FU April 29, 2025 9:01 am 6 M FU May 28, 2025 8:42 am 3 M FU July 29, 2025 2:38pm Reason for Visit Admit Date CKD (chronic kidney disease) April 29, 2025 9:01am Dyslipidemia April 29, 2025 9:01 am Essential hypertension April 29, 2025 9 :01am Microalbuminuria due to type 2 diabetes mellitus April 29, 2025 9:01am Overweight April 29, 2025 9:01 am Type 2 diabetes mellitus April 29, 2025 9:01am GERD (gastroesophageal reflux disease) J rafaela 2024 8:42am Metabolic dysfunction-associ ated steatotic liver disease (MASLD) May 28, 2025 8:42am Submucosal lesion of stomach May 28, 2025 8:42am CKD (chronic kidney disease) July 022024 2:38pm Dyslipidemia July 29, 2025 2:38pm Essential hypertension July 29 2:38pm Microalbuminuria due to type 2 diabetes mellitus July 29, 2025 2:38pm Overweight July 29, 2025 2:38pm Type 2 diabetes mellitus July 29, 2025 2:38pm Medications Administered Section Inactive Administered Medications - up to 3 most recent administrations Medication Order MAR Action Action Date Dose Rate Site benzocaine 20% 1 [place] (TOPEX) 1 [place], TOPICAL, DIRECTED, Starting on Tue06/01/22 at 1830, Until Tue06/01/22 at 2228, DOSING DIRECTED BY PHYSICIAN FOR PROCEDURAL SEDATION ONLY - Pharmaceutical Waste: Aerosol -, Intraprocedure Given 06/01/2022 6:36 PM EDT 5 Sprays diphenhydrAMINE 12.5-50 mg injection (BENADRYL) 12.5-50 mg, INTRAVENOUS, DIRECTED, Starting on Tue06/01/22 at 1830, Until Tue06/01/22 at 2228, DOSING DIRECTED BY PHYSICIAN FOR PROCEDURAL SEDATION ONLY, Intraprocedure Given 06/01/2022 6:41 PM EDT 50 mg fentaNYL 50 mcg/mL 25-100 mcg injection (SUBLIMAZE) 25-100 mcg, INTRAVENOUS, DIRECTED, Starting on Tue06/01/22 at 1830, Until Tue06/01/22 at 2228, DOSING DIRECTED BY PHYSICIAN FOR PROCEDURAL SEDATION ONLY, Intraprocedure Given 06/01/2022 6:39 PM EDT 50 mcg Given 06/01/2022 6:37 PM EDT 50 mcg lactated ringers iv infusion 30 mL/hr, INTRAVENOUS, CONTINUOUS, Starting on Tue06/01/22 at 1630, Until Tue06/01/22 at 1835, Preprocedure New Bag/Syringe/Bottle 06/01/2022 4:55 PM EDT 30 mL/hr 30 mL/hr midazolam (PF) 1-5 mg injection (VERSED) 1-5 mg, INTRAVENOUS, DIRECTED, Starting on Tue06/01/22 at 1830, Until Tue06/01/22 at 2229, DOSING DIRECTED BY PHYSICIAN FOR PROCEDURAL SEDATION ONLY, Intraprocedure Given 06/01/2022 6:49 PM EDT 1 mg Given 06/01/2022 6:39 PM EDT 2 mg Given 06/01/2022 6:37 PM EDT 3 mg Health Concerns Infection Onset Date Last Indicated Resolved Time COVID-19 Rule-Out 07/08/2022 07/08/2022 Infection Onset Date Last Indicated Resolved Time COVID-19 Rule-Out 07/08/2022 07/08/2022 07/09/2022 4:41 AM EDT COVID-19 Confirmed 07/08/2022 07/08/2022 Infection Onset Date Last Indicated Resolved Time COVID-19 Confirmed 07/08/2022 07/08/2022 Infection Onset Date Last Indicated Resolved Time COVID-19 Rule-Out 12/14/2022 12/14/2022 Infection Onset Date Last Indicated Resolved Time COVID-19 Rule-Out 08/05/2023 08/05/2023 08/06/2023 1:35 AM EDT Additional Source Comments (unrecognized sect ion and content) No Status Records FoundNo Status Records FoundNo Status Records FoundNo Status Records FoundNo Status Records FoundNo Status Records Found INFORMATION SOURCE (unrecogn ized section and content) DATE CREATED AUTHOR 04/21/2018 [facility] DATE CREATED AUTHOR AUTHOR'S ORGANIZ ATION 05/01/2019 [facility] DATE CREATED AUTHOR AUTHOR'S ORGANIZ ATION 07/02/2021 [facility] DATE CREATED AUTHOR AUTHOR'S ORGANIZ ATION 10/28/2023 [facility] DATE CREATED AUTHOR AUTHOR'S ORGANIZ ATION 08/02/2025 [facility] DATE CREATED AUTHOR AUTHOR'S ORGANIZ ATION 08/10/2025 [facility] Source Comments (unrecognize d section and content) In the event this informatio n is protected by the Federal Confidentiality of Alcohol and Drug Abuse Patient Records regulations: The Federal rules restrict any use of the information to criminally investigate or prosecute any alcohol or drug abuse patient.[facility] the event this information is protected by the Federal Confidentiality of Alcohol and Drug Abuse Patient Records regulations: The Federal rules restrict any use of the information to criminally investigate or prosecute any alcohol or drug abuse patient.[facility] HospitalIn the event this information is protected by the Federal Confidentiality of Alcohol and Drug Abuse Patient Records regulations: The Federal rules restrict any use of the information to criminally investigate or prosecute any alcohol or drug abuse patient.[facility]In the event this information is protected by the Federal Confidentiality of Alcohol and Drug Abuse Patient Records regulations: The Federal rules restrict any use of the information to criminally investigate or prosecute any alcohol or drug abuse patient.[facility] HospitalIn the event this information is protected by the Federal Confidentiality of Alcohol and Drug Abuse Patient Records regulations: The Federal rules restrict any use of the information to criminally investigate or prosecute any alcohol or drug abuse patient.[facility] HospitalIn the event this information is protected by the Federal Confidentiality of Alcohol and Drug Abuse Patient Records regulations: The Federal rules restrict any use of the information to criminally investigate or prosecute any alcohol or drug abuse patient.[facility] HospitalIn the event this information is protected by the Federal Confidentiality of Alcohol and Drug Abuse Patient Records regulations: The Federal rules restrict any use of the information to criminally investigate or prosecute any alcohol or drug abuse patient.[facility] HospitalIn the event this information is protected by the Federal Confidentiality of Alcohol and Drug Abuse Patient Records regulations: The Federal rules restrict any use of the information to criminally investigate or prosecute any alcohol or drug abuse patient.[facility] HospitalIn the event this information is protected by the Federal Confidentiality of Alcohol and Drug Abuse Patient Records regulations: The Federal rules restrict any use of the information to criminally investigate or prosecute any alcohol or drug abuse patient.[facility] HospitalIn the event this information is protected by the Federal Confidentiality of Alcohol and Drug Abuse Patient Records regulations: The Federal rules restrict any use of the information to criminally investigate or prosecute any alcohol or drug abuse patient.[facility] HospitalIn the event this information is protected by the Federal Confidentiality of Alcohol and Drug Abuse Patient Records regulations: The Federal rules restrict any use of the information to criminally investigate or prosecute any alcohol or drug abuse patient.[facility] HospitalIn the event this information is protected by the Federal Confidentiality of Alcohol and Drug Abuse Patient Records regulations: The Federal rules restrict any use of the information to criminally investigate or prosecute any alcohol or drug abuse patient.[facility] HospitalIn the event this information is protected by the Federal Confidentiality of Alcohol and Drug Abuse Patient Records regulations: The Federal rules restrict any use of the information to criminally investigate or prosecute any alcohol or drug abuse patient.[facility] HospitalIn the event this information is protected by the Federal Confidentiality of Alcohol and Drug Abuse Patient Records regulations: The Federal rules restrict any use of the information to criminally investigate or prosecute any alcohol or drug abuse patient.[facility] HospitalIn the event this information is protected by the Federal Confidentiality of Alcohol and Drug Abuse Patient Records regulations: The Federal rules restrict any use of the information to criminally investigate or prosecute any alcohol or drug abuse patient.[facility] HospitalIn the event this information is protected by the Federal Confidentiality of Alcohol and Drug Abuse Patient Records regulations: The Federal rules restrict any use of the information to criminally investigate or prosecute any alcohol or drug abuse patient.[facility] HospitalIn the event this information is protected by the Federal Confidentiality of Alcohol and Drug Abuse Patient Records regulations: The Federal rules restrict any use of the information to criminally investigate or prosecute any alcohol or drug abuse patient.[facility] HospitalIn the event this information is protected by the Federal Confidentiality of Alcohol and Drug Abuse Patient Records regulations: The Federal rules restrict any use of the information to criminally investigate or prosecute any alcohol or drug abuse patient.[facility] HospitalIn the event this information is protected by the Federal Confidentiality of Alcohol and Drug Abuse Patient Records regulations: The Federal rules restrict any use of the information to criminally investigate or prosecute any alcohol or drug abuse patient.[facility] HospitalIn the event this information is protected by the Federal Confidentiality of Alcohol and Drug Abuse Patient Records regulations: The Federal rules restrict any use of the information to criminally investigate or prosecute any alcohol or drug abuse patient.[facility] HospitalIn the event this information is protected by the Federal Confidentiality of Alcohol and Drug Abuse Patient Records regulations: The Federal rules restrict any use of the information to criminally investigate or prosecute any alcohol or drug abuse patient.[facility] HospitalIn the event this information is protected by the Federal Confidentiality of Alcohol and Drug Abuse Patient Records regulations: The Federal rules restrict any use of the information to criminally investigate or prosecute any alcohol or drug abuse patient.[facility] HospitalIn the event this information is protected by the Federal Confidentiality of Alcohol and Drug Abuse Patient Records regulations: The Federal rules restrict any use of the information to criminally investigate or prosecute any alcohol or drug abuse patient.[facility] HospitalIn the event this information is protected by the Federal Confidentiality of Alcohol and Drug Abuse Patient Records regulations: The Federal rules restrict any use of the information to criminally investigate or prosecute any alcohol or drug abuse patient.[facility] HospitalIn the event this information is protected by the Federal Confidentiality of Alcohol and Drug Abuse Patient Records regulations: The Federal rules restrict any use of the information to criminally investigate or prosecute any alcohol or drug abuse patient.[facility] HospitalIn the event this information is protected by the Federal Confidentiality of Alcohol and Drug Abuse Patient Records regulations: The Federal rules restrict any use of the information to criminally investigate or prosecute any alcohol or drug abuse patient.[facility] HospitalIn the event this information is protected by the Federal Confidentiality of Alcohol and Drug Abuse Patient Records regulations: The Federal rules restrict any use of the information to criminally investigate or prosecute any alcohol or drug abuse patient.[facility] HospitalIn the event this information is protected by the Federal Confidentiality of Alcohol and Drug Abuse Patient Records regulations: The Federal rules restrict any use of the information to criminally investigate or prosecute any alcohol or drug abuse patient.[facility] HospitalIn the event this information is protected by the Federal Confidentiality of Alcohol and Drug Abuse Patient Records regulations: The Federal rules restrict any use of the information to criminally investigate or prosecute any alcohol or drug abuse patient.[facility] HospitalIn the event this information is protected by the Federal Confidentiality of Alcohol and Drug Abuse Patient Records regulations: The Federal rules restrict any use of the information to criminally investigate or prosecute any alcohol or drug abuse patient.[facility] HospitalIn the event this information is protected by the Federal Confidentiality of Alcohol and Drug Abuse Patient Records regulations: The Federal rules restrict any use of the information to criminally investigate or prosecute any alcohol or drug abuse patient.[facility] HospitalIn the event this information is protected by the Federal Confidentiality of Alcohol and Drug Abuse Patient Records regulations: The Federal rules restrict any use of the information to criminally investigate or prosecute any alcohol or drug abuse patient.[facility] HospitalIn the event this information is protected by the Federal Confidentiality of Alcohol and Drug Abuse Patient Records regulations: The Federal rules restrict any use of the information to criminally investigate or prosecute any alcohol or drug abuse patient.[facility] HospitalIn the event this information is protected by the Federal Confidentiality of Alcohol and Drug Abuse Patient Records regulations: The Federal rules restrict any use of the information to criminally investigate or prosecute any alcohol or drug abuse patient.[facility] HospitalIn the event this information is protected by the Federal Confidentiality of Alcohol and Drug Abuse Patient Records regulations: The Federal rules restrict any use of the information to criminally investigate or prosecute any alcohol or drug abuse patient.[facility] HospitalIn the event this information is protected by the Federal Confidentiality of Alcohol and Drug Abuse Patient Records regulations: The Federal rules restrict any use of the information to criminally investigate or prosecute any alcohol or drug abuse patient.[facility] HospitalIn the event this information is protected by the Federal Confidentiality of Alcohol and Drug Abuse Patient Records regulations: The Federal rules restrict any use of the information to criminally investigate or prosecute any alcohol or drug abuse patient.[facility] HospitalIn the event this information is protected by the Federal Confidentiality of Alcohol and Drug Abuse Patient Records regulations: The Federal rules restrict any use of the information to criminally investigate or prosecute any alcohol or drug abuse patient.[facility] HospitalIn the event this information is protected by the Federal Confidentiality of Alcohol and Drug Abuse Patient Records regulations: The Federal rules restrict any use of the information to criminally investigate or prosecute any alcohol or drug abuse patient.[facility] HospitalIn the event this information is protected by the Federal Confidentiality of Alcohol and Drug Abuse Patient Records regulations: The Federal rules restrict any use of the information to criminally investigate or prosecute any alcohol or drug abuse patient.[facility] HospitalIn the event this information is protected by the Federal Confidentiality of Alcohol and Drug Abuse Patient Records regulations: The Federal rules restrict any use of the information to criminally investigate or prosecute any alcohol or drug abuse patient.[facility] HospitalIn the event this information is protected by the Federal Confidentiality of Alcohol and Drug Abuse Patient Records regulations: The Federal rules restrict any use of the information to criminally investigate or prosecute any alcohol or drug abuse patient.[facility] HospitalIn the event this information is protected by the Federal Confidentiality of Alcohol and Drug Abuse Patient Records regulations: The Federal rules restrict any use of the information to criminally investigate or prosecute any alcohol or drug abuse patient.[facility] HospitalIn the event this information is protected by the Federal Confidentiality of Alcohol and Drug Abuse Patient Records regulations: The Federal rules restrict any use of the information to criminally investigate or prosecute any alcohol or drug abuse patient.[facility] HospitalIn the event this information is protected by the Federal Confidentiality of Alcohol and Drug Abuse Patient Records regulations: The Federal rules restrict any use of the information to criminally investigate or prosecute any alcohol or drug abuse patient.[facility] HospitalIn the event this information is protected by the Federal Confidentiality of Alcohol and Drug Abuse Patient Records regulations: The Federal rules restrict any use of the information to criminally investigate or prosecute any alcohol or drug abuse patient.[facility]In the event this information is protected by the Federal Confidentiality of Alcohol and Drug Abuse Patient Records regulations: The Federal rules restrict any use of the information to criminally investigate or prosecute any alcohol or drug abuse patient.[facility] HospitalIn the event this information is protected by the Federal Confidentiality of Alcohol and Drug Abuse Patient Records regulations: The Federal rules restrict any use of the information to criminally investigate or prosecute any alcohol or drug abuse patient.[facility] HospitalIn the event this information is protected by the Federal Confidentiality of Alcohol and Drug Abuse Patient Records regulations: The Federal rules restrict any use of the information to criminally investigate or prosecute any alcohol or drug abuse patient.[facility] HospitalIn the event this information is protected by the Federal Confidentiality of Alcohol and Drug Abuse Patient Records regulations: The Federal rules restrict any use of the information to criminally investigate or prosecute any alcohol or drug abuse patient.[facility] HospitalIn the event this information is protected by the Federal Confidentiality of Alcohol and Drug Abuse Patient Records regulations: The Federal rules restrict any use of the information to criminally investigate or prosecute any alcohol or drug abuse patient.[facility] HospitalIn the event this information is protected by the Federal Confidentiality of Alcohol and Drug Abuse Patient Records regulations: The Federal rules restrict any use of the information to criminally investigate or prosecute any alcohol or drug abuse patient.[facility] HospitalIn the event this information is protected by the Federal Confidentiality of Alcohol and Drug Abuse Patient Records regulations: The Federal rules restrict any use of the information to criminally investigate or prosecute any alcohol or drug abuse patient.[facility] HospitalIn the event this information is protected by the Federal Confidentiality of Alcohol and Drug Abuse Patient Records regulations: The Federal rules restrict any use of the information to criminally investigate or prosecute any alcohol or drug abuse patient.[facility] HospitalIn the event this information is protected by the Federal Confidentiality of Alcohol and Drug Abuse Patient Records regulations: The Federal rules restrict any use of the information to criminally investigate or prosecute any alcohol or drug abuse patient.[facility] HospitalIn the event this information is protected by the Federal Confidentiality of Alcohol and Drug Abuse Patient Records regulations: The Federal rules restrict any use of the information to criminally investigate or prosecute any alcohol or drug abuse patient.[facility] HospitalIn the event this information is protected by the Federal Confidentiality of Alcohol and Drug Abuse Patient Records regulations: The Federal rules restrict any use of the information to criminally investigate or prosecute any alcohol or drug abuse patient.[facility] HospitalIn the event this information is protected by the Federal Confidentiality of Alcohol and Drug Abuse Patient Records regulations: The Federal rules restrict any use of the information to criminally investigate or prosecute any alcohol or drug abuse patient.[facility] HospitalIn the event this information is protected by the Federal Confidentiality of Alcohol and Drug Abuse Patient Records regulations: The Federal rules restrict any use of the information to criminally investigate or prosecute any alcohol or drug abuse patient.[facility] HospitalIn the event this information is protected by the Federal Confidentiality of Alcohol and Drug Abuse Patient Records regulations: The Federal rules restrict any use of the information to criminally investigate or prosecute any alcohol or drug abuse patient.[facility] HospitalIn the event this information is protected by the Federal Confidentiality of Alcohol and Drug Abuse Patient Records regulations: The Federal rules restrict any use of the information to criminally investigate or prosecute any alcohol or drug abuse patient.[facility] HospitalIn the event this information is protected by the Federal Confidentiality of Alcohol and Drug Abuse Patient Records regulations: The Federal rules restrict any use of the information to criminally investigate or prosecute any alcohol or drug abuse patient.[facility] HospitalIn the event this information is protected by the Federal Confidentiality of Alcohol and Drug Abuse Patient Records regulations: The Federal rules restrict any use of the information to criminally investigate or prosecute any alcohol or drug abuse patient.[facility] HospitalIn the event this information is protected by the Federal Confidentiality of Alcohol and Drug Abuse Patient Records regulations: The Federal rules restrict any use of the information to criminally investigate or prosecute any alcohol or drug abuse patient.[facility] HospitalIn the event this information is protected by the Federal Confidentiality of Alcohol and Drug Abuse Patient Records regulations: The Federal rules restrict any use of the information to criminally investigate or prosecute any alcohol or drug abuse patient.[facility] HospitalIn the event this information is protected by the Federal Confidentiality of Alcohol and Drug Abuse Patient Records regulations: The Federal rules restrict any use of the information to criminally investigate or prosecute any alcohol or drug abuse patient.[facility] HospitalIn the event this information is protected by the Federal Confidentiality of Alcohol and Drug Abuse Patient Records regulations: The Federal rules restrict any use of the information to criminally investigate or prosecute any alcohol or drug abuse patient.[facility] HospitalIn the event this information is protected by the Federal Confidentiality of Alcohol and Drug Abuse Patient Records regulations: The Federal rules restrict any use of the information to criminally investigate or prosecute any alcohol or drug abuse patient.[facility] HospitalIn the event this information is protected by the Federal Confidentiality of Alcohol and Drug Abuse Patient Records regulations: The Federal rules restrict any use of the information to criminally investigate or prosecute any alcohol or drug abuse patient.[facility] HospitalIn the event this information is protected by the Federal Confidentiality of Alcohol and Drug Abuse Patient Records regulations: The Federal rules restrict any use of the information to criminally investigate or prosecute any alcohol or drug abuse patient.[facility] HospitalIn the event this information is protected by the Federal Confidentiality of Alcohol and Drug Abuse Patient Records regulations: The Federal rules restrict any use of the information to criminally investigate or prosecute any alcohol or drug abuse patient.[facility] HospitalIn the event this information is protected by the Federal Confidentiality of Alcohol and Drug Abuse Patient Records regulations: The Federal rules restrict any use of the information to criminally investigate or prosecute any alcohol or drug abuse patient.[facility] HospitalIn the event this information is protected by the Federal Confidentiality of Alcohol and Drug Abuse Patient Records regulations: The Federal rules restrict any use of the information to criminally investigate or prosecute any alcohol or drug abuse patient.[facility] HospitalIn the event this information is protected by the Federal Confidentiality of Alcohol and Drug Abuse Patient Records regulations: The Federal rules restrict any use of the information to criminally investigate or prosecute any alcohol or drug abuse patient.[facility] HospitalIn the event this information is protected by the Federal Confidentiality of Alcohol and Drug Abuse Patient Records regulations: The Federal rules restrict any use of the information to criminally investigate or prosecute any alcohol or drug abuse patient.[facility] HospitalIn the event this information is protected by the Federal Confidentiality of Alcohol and Drug Abuse Patient Records regulations: The Federal rules restrict any use of the information to criminally investigate or prosecute any alcohol or drug abuse patient.[facility] HospitalIn the event this information is protected by the Federal Confidentiality of Alcohol and Drug Abuse Patient Records regulations: The Federal rules restrict any use of the information to criminally investigate or prosecute any alcohol or drug abuse patient.[facility] HospitalIn the event this information is protected by the Federal Confidentiality of Alcohol and Drug Abuse Patient Records regulations: The Federal rules restrict any use of the information to criminally investigate or prosecute any alcohol or drug abuse patient.[facility] HospitalIn the event this information is protected by the Federal Confidentiality of Alcohol and Drug Abuse Patient Records regulations: The Federal rules restrict any use of the information to criminally investigate or prosecute any alcohol or drug abuse patient.[facility] HospitalIn the event this information is protected by the Federal Confidentiality of Alcohol and Drug Abuse Patient Records regulations: The Federal rules restrict any use of the information to criminally investigate or prosecute any alcohol or drug abuse patient.[facility] HospitalIn the event this information is protected by the Federal Confidentiality of Alcohol and Drug Abuse Patient Records regulations: The Federal rules restrict any use of the information to criminally investigate or prosecute any alcohol or drug abuse patient.[facility] HospitalIn the event this information is protected by the Federal Confidentiality of Alcohol and Drug Abuse Patient Records regulations: The Federal rules restrict any use of the information to criminally investigate or prosecute any alcohol or drug abuse patient.[facility] HospitalIn the event this information is protected by the Federal Confidentiality of Alcohol and Drug Abuse Patient Records regulations: The Federal rules restrict any use of the information to criminally investigate or prosecute any alcohol or drug abuse patient.[facility] HospitalIn the event this information is protected by the Federal Confidentiality of Alcohol and Drug Abuse Patient Records regulations: The Federal rules restrict any use of the information to criminally investigate or prosecute any alcohol or drug abuse patient.[facility] HospitalIn the event this information is protected by the Federal Confidentiality of Alcohol and Drug Abuse Patient Records regulations: The Federal rules restrict any use of the information to criminally investigate or prosecute any alcohol or drug abuse patient.[facility] HospitalIn the event this information is protected by the Federal Confidentiality of Alcohol and Drug Abuse Patient Records regulations: The Federal rules restrict any use of the information to criminally investigate or prosecute any alcohol or drug abuse patient.[facility] HospitalIn the event this information is protected by the Federal Confidentiality of Alcohol and Drug Abuse Patient Records regulations: The Federal rules restrict any use of the information to criminally investigate or prosecute any alcohol or drug abuse patient.[facility] HospitalIn the event this information is protected by the Federal Confidentiality of Alcohol and Drug Abuse Patient Records regulations: The Federal rules restrict any use of the information to criminally investigate or prosecute any alcohol or drug abuse patient.[facility] HospitalIn the event this information is protected by the Federal Confidentiality of Alcohol and Drug Abuse Patient Records regulations: The Federal rules restrict any use of the information to criminally investigate or prosecute any alcohol or drug abuse patient.[facility] HospitalIn the event this information is protected by the Federal Confidentiality of Alcohol and Drug Abuse Patient Records regulations: The Federal rules restrict any use of the information to criminally investigate or prosecute any alcohol or drug abuse patient.[facility] HospitalIn the event this information is protected by the Federal Confidentiality of Alcohol and Drug Abuse Patient Records regulations: The Federal rules restrict any use of the information to criminally investigate or prosecute any alcohol or drug abuse patient.[facility] HospitalIn the event this information is protected by the Federal Confidentiality of Alcohol and Drug Abuse Patient Records regulations: The Federal rules restrict any use of the information to criminally investigate or prosecute any alcohol or drug abuse patient.[facility] HospitalIn the event this information is protected by the Federal Confidentiality of Alcohol and Drug Abuse Patient Records regulations: The Federal rules restrict any use of the information to criminally investigate or prosecute any alcohol or drug abuse patient.[facility] HospitalIn the event this information is protected by the Federal Confidentiality of Alcohol and Drug Abuse Patient Records regulations: The Federal rules restrict any use of the information to criminally investigate or prosecute any alcohol or drug abuse patient.[facility] HospitalIn the event this information is protected by the Federal Confidentiality of Alcohol and Drug Abuse Patient Records regulations: The Federal rules restrict any use of the information to criminally investigate or prosecute any alcohol or drug abuse patient.[facility] HospitalIn the event this information is protected by the Federal Confidentiality of Alcohol and Drug Abuse Patient Records regulations: The Federal rules restrict any use of the information to criminally investigate or prosecute any alcohol or drug abuse patient.[facility] ClinicIn the event this information is protected by the Federal Confidentiality of Alcohol and Drug Abuse Patient Records regulations: The Federal rules restrict any use of the information to criminally investigate or prosecute any alcohol or drug abuse patient.[facility] HospitalIn the event this information is protected by the Federal Confidentiality of Alcohol and Drug Abuse Patient Records regulations: The Federal rules restrict any use of the information to criminally investigate or prosecute any alcohol or drug abuse patient.[facility] HospitalIn the event this information is protected by the Federal Confidentiality of Alcohol and Drug Abuse Patient Records regulations: The Federal rules restrict any use of the information to criminally investigate or prosecute any alcohol or drug abuse patient.[facility] HospitalIn the event this information is protected by the Federal Confidentiality of Alcohol and Drug Abuse Patient Records regulations: The Federal rules restrict any use of the information to criminally investigate or prosecute any alcohol or drug abuse patient.[facility] HospitalIn the event this information is protected by the Federal Confidentiality of Alcohol and Drug Abuse Patient Records regulations: The Federal rules restrict any use of the information to criminally investigate or prosecute any alcohol or drug abuse patient.[facility] HospitalIn the event this information is protected by the Federal Confidentiality of Alcohol and Drug Abuse Patient Records regulations: The Federal rules restrict any use of the information to criminally investigate or prosecute any alcohol or drug abuse patient.[facility] HospitalIn the event this information is protected by the Federal Confidentiality of Alcohol and Drug Abuse Patient Records regulations: The Federal rules restrict any use of the information to criminally investigate or prosecute any alcohol or drug abuse patient.[facility] HospitalIn the event this information is protected by the Federal Confidentiality of Alcohol and Drug Abuse Patient Records regulations: The Federal rules restrict any use of the information to criminally investigate or prosecute any alcohol or drug abuse patient.[facility] HospitalIn the event this information is protected by the Federal Confidentiality of Alcohol and Drug Abuse Patient Records regulations: The Federal rules restrict any use of the information to criminally investigate or prosecute any alcohol or drug abuse patient.[facility] HospitalIn the event this information is protected by the Federal Confidentiality of Alcohol and Drug Abuse Patient Records regulations: The Federal rules restrict any use of the information to criminally investigate or prosecute any alcohol or drug abuse patient.[facility] HospitalIn the event this information is protected by the Federal Confidentiality of Alcohol and Drug Abuse Patient Records regulations: The Federal rules restrict any use of the information to criminally investigate or prosecute any alcohol or drug abuse patient.[facility] HospitalIn the event this information is protected by the Federal Confidentiality of Alcohol and Drug Abuse Patient Records regulations: The Federal rules restrict any use of the information to criminally investigate or prosecute any alcohol or drug abuse patient.[facility] HospitalIn the event this information is protected by the Federal Confidentiality of Alcohol and Drug Abuse Patient Records regulations: The Federal rules restrict any use of the information to criminally investigate or prosecute any alcohol or drug abuse patient.[facility] HospitalIn the event this information is protected by the Federal Confidentiality of Alcohol and Drug Abuse Patient Records regulations: The Federal rules restrict any use of the information to criminally investigate or prosecute any alcohol or drug abuse patient.[facility] HospitalIn the event this information is protected by the Federal Confidentiality of Alcohol and Drug Abuse Patient Records regulations: The Federal rules restrict any use of the information to criminally investigate or prosecute any alcohol or drug abuse patient.[facility] HospitalIn the event this information is protected by the Federal Confidentiality of Alcohol and Drug Abuse Patient Records regulations: The Federal rules restrict any use of the information to criminally investigate or prosecute any alcohol or drug abuse patient.[facility] HospitalIn the event this information is protected by the Federal Confidentiality of Alcohol and Drug Abuse Patient Records regulations: The Federal rules restrict any use of the information to criminally investigate or prosecute any alcohol or drug abuse patient.[facility] HospitalIn the event this information is protected by the Federal Confidentiality of Alcohol and Drug Abuse Patient Records regulations: The Federal rules restrict any use of the information to criminally investigate or prosecute any alcohol or drug abuse patient.[facility] HospitalIn the event this information is protected by the Federal Confidentiality of Alcohol and Drug Abuse Patient Records regulations: The Federal rules restrict any use of the information to criminally investigate or prosecute any alcohol or drug abuse patient.[facility] HospitalIn the event this information is protected by the Federal Confidentiality of Alcohol and Drug Abuse Patient Records regulations: The Federal rules restrict any use of the information to criminally investigate or prosecute any alcohol or drug abuse patient.[facility] HospitalIn the event this information is protected by the Federal Confidentiality of Alcohol and Drug Abuse Patient Records regulations: The Federal rules restrict any use of the information to criminally investigate or prosecute any alcohol or drug abuse patient.[facility] Reason for Visit (unrecogniz ed section and content) Reason Comments PT Progress Note Specialty Diagnoses / Procedures Referred By Aston reyes Referred To Contact [facility] Diagnoses Pain in both lower extremities Greater trochanteric bursitis of both hips Acute midline low back pain without sciatica Muscle weakness of lower extremity Procedures CONSULT TO PHYSICAL THERAPY PHYSICAL THERAPY EVALUATION HIGH COMPLEX 45 MINS Cruz Prado MD [address] [place] [address] [facility] [address] [address] Referral ID Status Reason Start Date Expiration Date V isits Requested Visits Authorized [id number] Authorized 10/31/2022 10/30/2023 99 99 Reason Onset Date Comments Refill Request 01/18/2022 Reason Comments appointment question Reason Comments Eye Problem Right Eye irritation, rednes s x this AM Reason Comments Follow Up Reason Comments Question Reason Comments patient asking for referral Reason Comments Appointment Reason Comments Prescription Refills Reason Comments Headache sinus pressure w/ dr humphrey ([place]) ear irritation Follow Up intermittent SOB, de nied chest pain, BS 132 Reason Comments Fatigue Reason Comments Consult colonoscopy, EGD Specialty Diagnoses / Procedures Referred By Contac t Referred To Contact General Surgery Diagnoses Abdominal pain, unspecified abdominal location 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 Procedures CONSULT TO GENERAL SURGERY OFFICE/OUTPATIENT [facility] 60-74 MINUTES Anette Arreola PA-C [address] [place] [address] Referral ID Status Reason Start Date Expiration Date V isits Requested Visits Authorized [id number] Closed PCP Requested Referral 03/16/2022 03/16/2023 1 1 Reason Comments Musculoskeletal Problem Reason Comments Results Reason Comments Opened In Error Reason Comments Appointment Canceled FYI Reason Comments 06-01-2022 COLON EGD [facility] Reason Comments Cough Cough and head conge stion x several weeks Reason Onset Date Comments COVID positive; inquiring about paxlovid 022 Reason Comments Derm Problem red, swollen, itchin g area on back of right armpit x 4 days Reason Comments requesting 90 day supply for rx Reason Onset Date Comments Refill Request 08/08/2022 Reason Comments Orders Reason Comments Pain Patient is here for continued leg pain Reason Onset Date Comments Refill Request 10/18/2022 Reason Onset Date Comments Refill Request 11/11/2022 Reason Comments Fatigue Fatigue x 2 days Reason Onset Date Comments Refill Request 12/24/2022 Reason Comments Conjunctivitis Possible pink in the left eye x 4 days Reason Comments PT Eval Reason Comments Medication Problem Reason Onset Date Comments Refill Request 02/01/2023 Reason Comments Physical Therapy Specialty Diagnoses / Procedures Referred By Contac t Referred To Contact [facility] Diagnoses Pain in both lower extremities Greater trochanteric bursitis of both hips Acute midline low back pain without sciatica Muscle weakness of lower extremity Procedures CONSULT TO PHYSICAL THERAPY PHYSICAL THERAPY EVALUATION HIGH COMPLEX 45 MINS Cruz Prado MD [address] [place] [address] [facility] [address] [place] [address] Reason Comments Follow Up Flare up of IBS Reason Comments Patient Question Reason Comments Covid19 Concern WYNN, cough, fatigue x 5 days, flu shot x1 day Reason Comments Diabetic Foot Care Established Patient Tightness Blister Reason Comments Eye Problem Irritated left eye-w maryjo up with symptoms Reason Comments Trigger Finger Reason Comments Schedule Surgery Reason Comments FLMA Paperwork Reason Comments Established Patient 1 week, 4 days post op Right ring trigger finger release, suture removal Reason Comments Nasal Congestion And cough x2 weeks. Home covid test negative. Reason Comments FMLA Paperwork Recertification Reason Comments Follow Up IBS flare up X 1 wee k Reason Comments Headache Congestion sinus pre ssure x2 weeks Reason Onset Date Comments Refill Request 04/02/2024 Reason Comments Cough WYNN, diarrhea x 1 wee k Reason Comments Forms Reason Comments Cough Left ear pain and co ngestion x1 mth Reason Comments Corns Pain Established Patient Numbness Swelling Diabetic Foot Care Reason Comments Abdominal Pain Reason Comments FMLA Paperwork Reason Comments Established Patient Follow Up Pain Reason Comments form completion for insurance Reason Comments Radiology XR Reason Onset Date Comments requesting medication that is 08/20/2024 Reason Comments Consult Reason Onset Date Comments Refill Request 08/31/2024 Reason Onset Date Comments Refill Request 09/21/2024 Reason Comments Insurance Authorization Reason Comments medication issue Reason Comments Results Outside facility - [facility] Reason Onset Date Comments Refill Request 10/18/2024 Reason Onset Date Comments Refill Request 10/29/2024 Reason Comments Faxed to [facility] Reason Comments Outside Imaging Reason Comments Outside EGD/ H&P Reason Comments Outside [id number] Ordered Reason Comments Cough ST, congestion x1 we ek Reason Onset Date Comments Refill Request 01/08/2025 Reason Comments Physical Reason Comments Established Patient Follow Up Pain Diabetic Foot Care Reason Comments Consult Outside Endocrinolog y Reason Comments Sinus Problem sinus pressure, drai nage, left ear and jaw pain x 2 weeks Reason Onset Date Comments Refill Request 03/28/2025 Reason Comments Cough Cough, sinus, conges tion and WYNN x 2 weeks Reason Comments Established Patient Follow Up Pain Reason Comments Medication Request Request to increase two medications Care Teams (unrecognized sec tion and content) [employer] Relationship Specialty Start Date End Date Cruz Prado MD [address] [place], [place] [id number] PCP - General Family Practice 05/20/21 [employer] Relationship Specialty Start Date End Date Cruz Prado MD [address] [place], [place] [id number] PCP - General Family Practice 05/20/21 [employer] Intern[employer] Relationship Specialty Start Date End Date Cruz Prado MD [address] [place] [address] PCP - General Family Practice 05/20/21 [employer] Internship Relationship Specialty Start Date End Date Cruz Prado MD [address] [place] [address] PCP - General Family Practice 05/20/21 [employer] Internship Relationship Specialty Start Date End Date Cruz Prado MD [facility] [place] [address] PCP - General Family Practice 05/20/21 [employer] Intern[employer] Relationship Specialty Start Date End Date Cruz Prado MD [address] [place] [address], [place] [address] PCP - General Family Practice 05/20/21 [employer] Intern[employer] Relationship Specialty Start Date End Date Cruz Prado MD [address] [place] [address], [place] [address] PCP - General Family Practice 05/20/21 [employer] Intern[employer] Relationship Specialty Start Date End Date Cruz Prado MD [address] [place] [address], [place] [address] PCP - General Family Practice 05/20/21 [employer] Internship Relationship Specialty Start Date End Date Cruz Prado MD [address] [place] [address], [place] [address] PCP - General Family Practice 05/20/21 [employer] Internship Relationship Specialty Start Date End Date Cruz Prado MD [address] [place] [address], [place] [address] PCP - General Family Practice 05/20/21 [employer] Internship Relationship Specialty Start Date End Date Cruz Prado MD [address] [place] [address], [place] [address] PCP - General Family Practice 05/20/21 [employer] Internship Relationship Specialty Start Date End Date Cruz Prado MD [address] [place] [address] PCP - General Family Practice 05/20/21 [employer] Internship Relationship Specialty Start Date End Date Cruz Prado MD [address] [facility] [place] [address] PCP - General Family Practice 05/20/21 [employer] Intern[employer] Relationship Specialty Start Date End Date Alexandre Giles III, MD PCP - General Family Practice 02/23/18 05/19/21 [employer] Intern[employer] Relationship Specialty Start Date End Date Cruz Prado MD [facility] [place] [address] PCP - General Family Practice 05/20/21 [employer] Internship Relationship Specialty Start Date End Date Cruz Prado MD [address] [place] [address] PCP - General Family Practice 05/20/21 [employer] Internship Relationship Specialty Start Date End Date Cruz Prado MD [address] [facility] [place] [address] PCP - General Family Medicine 05/20/21 [employer] Internship Relationship Specialty Start Date End Date Cruz Prado MD [address] [facility] [place] [address] PCP - General Family Medicine 05/20/21 [employer] Internship Relationship Specialty Start Date End Date Cruz Prado MD [address] [facility] [place] [address] PCP - General Family Medicine 05/20/21 [employer] Internship Relationship Specialty Start Date End Date Cruz Prado MD [facility] [place] [address] PCP - General Family Medicine 05/20/21 [employer] Internship Relationship Specialty Start Date End Date Cruz Prado MD [address] [place] [address] PCP - General Family Medicine 05/20/21 [employer] Internship Relationship Specialty Start Date End Date Cruz Prado MD [address] [place] [address] PCP - General Family Medicine 05/20/21 [employer] Internship Relationship Specialty Start Date End Date Cruz Prado MD [address] [place] [address] PCP - General Family Medicine 05/20/21 [employer] Internship Relationship Specialty Start Date End Date Cruz Prado MD [facility] [place] [address] PCP - General Family Medicine 05/20/21 [employer] Industry Internship Relationship Specialty Start Date End Date Cruz Prado MD [facility] [place] [address] PCP - General Family Medicine 05/20/21 [employer] Internship Relationship Specialty Start Date End Date Cruz Prado MD [facility] [place] [address] PCP - General Family Medicine 05/20/21 [employer] Industry Internship Relationship Specialty Start Date End Date Cruz Prado MD [facility] [place] [address] PCP - General Family Medicine 05/20/21 [employer] Industry Internship Relationship Specialty Start Date End Date Cruz Prado MD [facility] [place] [address] PCP - General Family Medicine 05/20/21 [employer] Internship Relationship Specialty Start Date End Date Cruz Prado MD [facility] [place] [address] PCP - General Family Medicine 05/20/21 [employer] Intern[employer] Relationship Specialty Start Date End Date Cruz Prado MD [address] [place], [place] [address] PCP - General Family Medicine 05/20/21 Team Status: Active Member Role Status Dates Dr. Alexandre Giles III, MD Family Provider Active Dr. Cruz Prado MD Primary Care Provider Active Team Status: Inactive Member Role Status Dates Dr. Cruz Prado MD Primary Care Provider Active Dr. Nito Crystal DO Emergency Provider Active [employer] Relationship Specialty Start Date End Date Cruz Prado MD [address] [place], [place] [id number] PCP - General Family Medicine 05/20/21 Team Status: Inactive Member Role Status Dates Dr. Cruz Prado MD Primary Care Provider Active Dr. Desiree Stubbs DO Emergency Provider Active Team Status: Inactive Member Role Status Dates Dr. Cruz Prado MD Primary Care Provider Active Dr. Nito Crystal DO Attending Provider, Emergency Provider Active Team Status: Inactive Member Role Status Dates Dr. Cruz Prado MD Primary Care Provider Active Dr. Desiree Stubbs DO Attending Provider, Emergency P philip Active Team Status: Inactive Member Role Status Dates Dr. Cruz Prado MD Primary Care Provider Active Dr. Eloy Graham MD Emergency Provider Active [employer] Relationship Specialty Start Date End Date Cruz Prado MD [address] [place] [address] PCP - General Family Medicine 05/20/21 [employer] Relationship Specialty Start Date End Date Cruz Prado MD [address] [place], [place] [id number] PCP - General Family Medicine 05/20/21 [employer] Relationship Specialty Start Date End Date Cruz Prado MD [address] [place] [address] PCP - General Family Medicine 05/20/21 [employer] Relationship Specialty Start Date End Date Cruz Prado MD [address] [place] [address] PCP - General Family Medicine 05/20/21 [employer] Relationship Specialty Start Date End Date Cruz Prado MD [address] [place] [address] PCP - General Family Medicine 05/20/21 [employer] Relationship Specialty Start Date End Date Cruz Prado MD [address] [place] [address] PCP - General Family Medicine 05/20/21 [employer] Relationship Specialty Start Date End Date Cruz Prado MD [address] [place] [address] PCP - General Family Medicine 05/20/21 [employer] Relationship Specialty Start Date End Date Cruz Prado MD [address] [place] [address] PCP - General Family Medicine 05/20/21 [employer] Relationship Specialty Start Date End Date Cruz Prado MD [address] [place] [address] PCP - General Family Medicine 05/20/21 [employer] Relationship Specialty Start Date End Date Cruz Prado MD [address] [place] [address] PCP - General Family Medicine 05/20/21 [employer] Relationship Specialty Start Date End Date Cruz Prado MD [address] [place] [address] PCP - General Family Medicine 05/20/21 [employer] Relationship Specialty Start Date End Date Cruz Prado MD [address] [place] [address] PCP - General Family Medicine 05/20/21 [employer] Relationship Specialty Start Date End Date Cruz Prado MD [address] [place] [address] PCP - General Family Medicine 05/20/21 [employer] Relationship Specialty Start Date End Date Cruz Prado MD [address] [place] [address] PCP - General Family Medicine 05/20/21 [employer] Relationship Specialty Start Date End Date Cruz Prado MD [address] [place] [address] PCP - General Family Medicine 05/20/21 [employer] Relationship Specialty Start Date End Date Cruz Prado MD [address] [place] [address] PCP - General Family Medicine 05/20/21 [employer] Relationship Specialty Start Date End Date Cruz Prado MD [address] [place] [address] PCP - General Family Medicine 05/20/21 [employer] Relationship Specialty Start Date End Date Alexandre Giles III, MD PCP - General Family Medicine 02/23/18 05/19/21 [employer] Relationship Specialty Start Date End Date Cruz Prado MD [address] [place] [address] PCP - General Family Medicine 05/20/21 [employer] Relationship Specialty Start Date End Date Cruz Prado MD [address] [place] [address] PCP - General Family Medicine 05/20/21 [employer] Relationship Specialty Start Date End Date Cruz Prado MD [address] [place] [address] PCP - General Family Medicine 05/20/21 Lorie Moses APRN.SOCIAL MEDIA MANAGER [address] [place] [address] [facility] 10/06/24 Anette Arreola PA-C [address] [place] [address] [facility] 10/06/24 [employer] Relationship Specialty Start Date End Date Cruz Pardo MD [address] [place] [address] PCP - General Family Medicine 05/20/21 Lorie Moses APRN.SOCIAL MEDIA MANAGER [address] [place] [address] [facility] 10/06/24 Anette Arreola PA-C [address] [place] [address] [facility] 10/06/24 [employer] Relationship Specialty Start Date End Date Cruz Prado MD [address] [place] [address] PCP - General Family Medicine 05/20/21 Lorie Moses APRN.SOCIAL MEDIA MANAGER [address] [place] [address] [facility] 10/06/24 Anette Arreola PA-C [address] [place] [address] [facility] 10/06/24 [employer] Relationship Specialty Start Date End Date Cruz Prado MD [address] [place] [address] PCP - General Family Medicine 05/20/21 Lorie Moses APRN.SOCIAL MEDIA MANAGER [address] [place] [address] [facility] 10/06/24 Anette Arreola PA-C [address] [place] [address] [facility] 10/06/24 [employer] Relationship Specialty Start Date End Date Cruz Prado MD [address] [place] [address] PCP - General Family Medicine 05/20/21 Lorie Moses, LIFE SCIENCE TECHNICAL OFFICER.SOCIAL MEDIA MANAGER [address] [place] [address] [facility] 10/06/24 Anette Arreola PA-C [address] [place] [address] [facility] 10/06/24 [employer] Relationship Specialty Start Date End Date Cruz Prado MD [address] [place] [address] PCP - General Family Medicine 05/20/21 Lorie Moses APRN.SOCIAL MEDIA MANAGER [address] [place] [address] [facility] 10/06/24 Anette Arreola PA-C [address] [place] [address] [facility] 10/06/24 [employer] Relationship Specialty Start Date End Date Cruz Prado MD [address] [place] [address] PCP - General Family Medicine 05/20/21 Lorie Moses APRN.SOCIAL MEDIA MANAGER [address] [place] [address] [facility] 10/06/24 Anette Arreola PA-C [address] [place] [address] [facility] 10/06/24 [employer] Relationship Specialty Start Date End Date Cruz Prado MD [address] [place] [address] PCP - General Family Medicine 05/20/21 Lorie Moses APRN.SOCIAL MEDIA MANAGER [address] [place] [address] [facility] 10/06/24 Anette Arreola PA-C [address] [place] [address] [facility] 10/06/24 [employer] Relationship Specialty Start Date End Date Cruz Prado MD [address] [place] [address] PCP - General Family Medicine 05/20/21 Lorie Moses APRN.SOCIAL MEDIA MANAGER [address] [place] [address] [facility] 10/06/24 Anette Arreola PA-C [address] [place] [address] [facility] 10/06/24 [employer] Internship Relationship Specialty Start Date End Date Cruz Prado MD [address] [place] [address] PCP - General Family Medicine 05/20/21 Lorie Moses APRN.SOCIAL MEDIA MANAGER [address] [place] [address] [facility] 10/06/24 Anette Arreola PA-C [address] [place] [address] [facility] 10/06/24 [employer] Relationship Specialty Start Date End Date Cruz Prado MD [address] [place] [address] PCP - General Family Medicine 05/20/21 Lorie Moses APRN.SOCIAL MEDIA MANAGER [address] [place] [address] [facility] 10/06/24 Anette Arreola PA-C [address] [place] [address] [facility] 10/06/24 [employer]ship Relationship Specialty Start Date End Date Cruz Prado MD [address] [place] [address] PCP - General Family Medicine 05/20/21 Lorie Moses APRN.SOCIAL MEDIA MANAGER [address] [place] [address] [facility] 10/06/24 Anette Arreola PA-C [address] [place] [address] [facility] 10/06/24 [employer]ship Relationship Specialty Start Date End Date Cruz Prado MD [address] [place] [address] PCP - General Family Medicine 05/20/21 Lorie Moses APRN.SOCIAL MEDIA MANAGER [address] [place] [address] [facility] 10/06/24 Anette Arreola PA-C [address] [place] [address] [facility] 10/06/24 [employer] Relationship Specialty Start Date End Date Cruz Prado MD [address] [place] [address] PCP - General Family Medicine 05/20/21 Lorie Moses APRN.SOCIAL MEDIA MANAGER [address] [place] [address] [facility]24 Anette Arreola PA-C [address] [place], [place] [address] [facility] [employer] Relationship Specialty Start Date End Date Cruz Prado MD [address] [place] [address] PCP - General Family Medicine 05/20/21 Anette Arreola PA-C [address] [place] [address] [facility] 10/06/24 [employer] Intern[employer] Relationship Specialty Start Date End Date Cruz Prado MD [address] [place] [address] PCP - General [facility] 05/20/21 Anette Arreola PA-C [address] [place] [address] [facility] Team Status: Active Member Role/Relationship Status Dates Dr. Cruz Prado MD Primary Care Provider Active Team Status: Inactive Member Role/Relationship Status Dates Dr. Cruz Prado MD Primary Care Provider Active Start: January 28, 2025 End: January 28, 2025 Dr. Cruz Prado MD Referring Provider Active Start: January 28, 2025 End: January 28, 2025 AKOSUA Dunne Attending Provider Active Start: January 28, 2025 End: January 28, 2025 Team Status: Inactive Member Role/Relationship Status Dates Dr. Cruz Prado MD Primary Care Provider Active Start: April 29, 2025 End: April 29, 2025 Dr. Cruz Prado MD Referring Provider Active Start: April 29, 2025 End: April 29, 2025 AKOSUA Dunne Attending Provider Active Start: April 29, 2025 End: April 29, 2025 [employer] Relationship Specialty Start Date End Date Cruz Prado MD [address] [place], [place] [address] PCP - General Family Medicine 05/20/21 Lorie Moses APRN.SOCIAL MEDIA MANAGER [address] [place] [id number] [facility] 04/01/25 Anette Arreola PA-C [address] [place] [address] [facility] 04/01/25 Team Status: Inactive Member Role/Relationship Status Dates Dr. Cruz Prado MD Primary Care Provider Active Start: May 28, 2025 End: May 28, 2025 Dr. Cruz Prado MD Referring Provider Active Start: May 28, 2025 End: May 28, 2025 AKOSUA Durant Attending Provider Active Start: May 28, 2025 End: May 28, 2025 [employer] Relationship Specialty Start Date End Date Cruz Prado MD [address] [place] [address] [id number] PCP - General Family Medicine 05/20/21 Lorie Moses APRN.SOCIAL MEDIA MANAGER [address] [place] [id number] [facility] 04/01/25 Anette Arreola PA-C [address] [place], [place] 096561 [facility] 04/01/25 Team Status: Active Member Role/Relationship Status Dates Dr. Cruz Prado MD Primary care physician Active Team Status: Inactive Member Role/Relationship Status Dates Dr. Cruz Prado MD Primary care physician Active Start: April 29, 2025 End: April 29, 2025 Dr. Cruz Prado MD Referring Provider Active Start: April 29, 2025 End: April 29, 2025 AKOSUA Dunne Attending physician Active Start: April 29, 2025 End: April 29, 2025 Team Status: Inactive Member Role/Relationship Status Dates Dr. Cruz Prado MD Primary care physician Active Start: May 28, 2025 End: May 28, 2025 Dr. Cruz Prado MD Referring Provider Active Start: May 28, 2025 End: May 28, 2025 AKOSUA Durant Attending physician Active Start: May 28, 2025 End: May 28, 2025 Team Status: Inactive Member Role/Relationship Status Dates Dr. Cruz Prado MD Primary care physician Active Start: July 29, 2025 End: July 29, 2025 Dr. Cruz Prado MD Referring Provider Active Start: July 29, 2025 End: July 29, 2025 AKOSUA Dunne Attending physician Active Start: July 29, 2025 End: July 29, 2025 Goals (unrecognized section and content) Goals may be documented in a n alternate sectionGoals may be documented in an alternate sectionGoals may be documented in an alternate sectionGoals may be documented in an alternate sectionGoals may be documented in an alternate sectionGoals may be documented in an alternate sectionGoals may be documented in an alternate sectionGoals may be documented in an alternate section FOR RECORDS PERTAINING TO PATIENTS WHO ARE OR HAVE BEEN ENROLLED IN A CHEMICAL DEPENDENCY/SUBSTANCEABUSE PROGRAM, SOME INFORMATION MAY BE OMITTED. This clinical summary was aggregated from multiple sources. Caution should be exercised in using it in the provision of clinical care. This summary normalizes information from multiple sources, and as a consequence, information in this document may materially change the coding, format and clinical context of patient data. In addition, data may be omitted in some cases. CLINICAL DECISIONS SHOULD BE BASED ON THE PRIMARY CLINICAL RECORDS. [facility]. provides no warranty or guarantee of the accuracy or completeness of information in this document.
--- OUTSIDE RECORDS SUMMARY | 2025-08-17 10:11 | XMS RPT_ITS | CCD ---
Author Organization [facility] Care Team Providers Care Pre Owned Sales Consultant Name Role Phone Say Snyder Unavailable Unavailable [...] MD Primary Care Provider Dr. Cruz Prado Primary Care Provider Dr. Cruz Prado Referring Provider Stewart DELONG, BALJEET-C Susi Attending Provider Cruz Prado MD Primary Care Provider LORIE MOSES Referring Unavailable CRUZ PRADO Primary Care Unavailable Cruz Prado MD Primary Care Provider Tisha MONTOYA MD, Frank A Primary Care Provider Sue vailafreda Moses TAX COMPLIANCE MANAGER.Lorie CRISOSTOMO Unavailable Anette Arreola PA-C Unavailable Dr. Cruz Prado MD Primary Care Provider Dr. Cruz Prado MD Referring Provider Juan Manuel GAYTANCWhit Attending Provider [phone] Talya MCKAY.OFFICE ADMIN, Lorie Unavailable Anette Arreola PA-C Unavailable Kevin LEATHER SKINNER-CIrma Attending Provider Johan, Cruz Primary Care Unavailable [...] Johan, Cruz Referring Unavailable KevinIrma Attending Unavailable KeivnIrma Referring Unavailable Johan, Cruz Primary Care Unavailable Johan GUERRERO, Dr. Arroyo Primary Care Physician [phone] Dr. Cruz Prado MD Referring Provider Juan Manuel LEATHER SKINNERWhit Garcia Attending Physician [phone] Irma Philippe Attending Physician JOHAN, CRUZ A Referring Unavailable JOHAN, CRUZ [...] (1 source) Amitriptyline Drug Allergy 8 Intolerance [facility] Work Phone: Opioid Agonists (1 source) traMADol Drug Allergy 8 Vomiting [facility] (20 sources) Amitriptyline; Translations: [AMITRIPTYLINE] Drug Allergy 8 Intolerance [facility] Work Phone: (20 sources) traMADol; Translations: [TRAMADOL] Drug Allergy 8 Vomiting [facility] Work Phone: (20 sources) Bee Sting; Translations: [BEE STING] Allergy to substance 1 Anaphylaxis [facility] Work Phone: (8 sources) bee venom protein (honey bee) Allergy to substance 2 Anaphylaxis [facility] (10 sources) traZODone; Translations: [TRAZODONE] Drug Allergy 5 Other: See Comments [facility] (1 source) Amitriptyline Drug Allergy 5 [facility] (1 source) traMADol Drug Allergy 5 [facility] (1 source) bee venom protein (honey bee) Drug allergy (disorder) 5 [facility] Medications Current Medications Medication Drug [...] by gulshan twice daily for 5 days. [id number] 0.3 ml EPINEPHrine 1 mg/ml auto-injector (20 [...] Comment on above: Take 1 capsule by [facility] once daily. ferrous sulfate 325 mg [...] 5 days. Take 2 tablets by mo [facility] once daily for 5 days. Take [...] ) 0.65 % nasal spray Use 1 [place] in the nose as needed for cold/allergy symptoms. 15 mL 07/08/2022 05/13/2023 Discontinued Comment on above: Use 1 [place] in the n ose as needed for [...] Comment on above: [facility]. Per CardioDr. Schneider celecoxib 200 mg oral capsule (13 sources) Nonsteroidal Anti-inflammatory Drug Start: 2022 End: 2022 take 1 capsule by mouth once daily celecoxib (CELEBREX) 200 mg capsule Take 1 capsule by mouth once daily. 90 capsule 1 05/19/2023 08/19/2023 Discontinued (Course of therapy completed) Comment on above: Take 1 capsule by mo [facility] once daily. cyclobenzaprine hydrochloride 10 mg [...] region of the penis polyethylene glycol 3350 055139 mg / potassium chloride 2970 mg / sodium bicarbonate 6740 mg / sodium chloride 5860 mg / sodium sulfate 86480 mg powder for oral solution (2 sources) Osmotic Laxative Start: End: peg 3350-Electrolytes (GOLYTELY) 236-22.74-6.74 -5.86 gram suspension Take 4,000 mL by mouth one time only for 1 dose. 1 Each 0 04/02/2022 04/02/2022 Comment on above: Take 4,000 mL by gulshan th one time only for 1 dose. 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 Normal [facility] Melvin 08-05-2025 CNPN Telephone (INTMWS) DAR ROSE ([id number]) 1955 M Date Time Provider Department 08/05/25 CRUZ PRADO INTMWS During your visit today, we recorded the following information about you: Patricia Johnson LPN 08/05/2025 3:48 PM Signed Thank you for creating a prior authorization request using [employer]. The prior authorization department will contact you if additional information is needed. Once a decision is made you will be notified of the decision. You can check the status of your request using the Check Status link. Please note down (Prior Auth EOC ID) to check status. Prior Authorization request details: Prior Auth (EOC) ID: [id number] Drug/Service Name: ESOMEPRAZOLE MAG DR 40 MG CAP Patient: DAR ROSE Date Requested: 08/05/2025 3:39:22 PM MemberID: [id number] : 1955 Unable to complete PA on [...] Fully Assessed Reason for Visit: Insurance Authorization [[id number]] Prescriptions as of 08/08/2025 - esomeprazole (NEXIUM) [...] Ex-smoker [Z8 (more content not included)... Normal [facility] 08-02-2025 [facility] DAR [facility] ([id number]) 1955 M Date Time Provider Department 08/02/25 [facility] During your visit today, we recorded the following information about you: An Renee 08/02/2025 8:44 AM Signed Patient requesting the following medication that is : lisinopril (ZESTRIL) 40 mg tablet Patient last seen: 03-19-25 Future visit scheduled: no PHARMACY: [facility]. Cruz Prado MD 08/05/2025 3:01 PM Signed Let patient know he is no longer on lisinopril he is on losartan instead and it was refilled on 08/02/2025. Natasha Saunders MA 08/07/2025 2:13 PM Addendum Call to pt received VM, didn't LM. Sent pt a [employer] message notifying him of message below from [...] of COVID-1 (more content not included)... Normal [facility] CBC W Auto Differential pane l (Bld)on 07-30-2025 Basophils (Bld) [#/Vol] 0.06 10*3/uL Normal <0.11 [facility] Comment on above: Order Comment: Speci men Type: BLOOD SPECIMENOrdering Facility: [facility] Address: [address] [place] [address] Performed By: #### 5 7021-8 ####[facility] LABCLIA [id number] [place] [address] [place] Basophils/100 WBC (Bld) 0.8 % Normal [facility] Comment on above: Order Comment: Speci men Type: BLOOD SPECIMENOrdering Facility: [facility] Address: [address] [place] [address] Performed By: #### 5 7021-8 ####[facility] LABCLIA [id number] [address], [place] [address] [place] Differential cell count method Nom (Bld) Auto Normal [facility] Comment on above: Order Comment: Speci men Type: BLOOD SPECIMENOrdering Facility: [facility] Address: [address] [place] [address] Performed By: #### 5 7021-8 ####[facility] LABCLIA [id number] [place] [address] [place] Eosinophils (Bld) [#/Vol] 0.21 10*3/uL Normal <0.46 [facility] Comment on above: Order Comment: Speci men Type: BLOOD SPECIMENOrdering Facility: [facility] Address: [address] [place] [address] Performed By: #### 5 7021-8 ####[facility] LABCLIA [id number] [place] [address] [place] Eosinophils/100 WBC (Bld) 2.6 % Normal [facility] Comment on above: Order Comment: Speci men Type: BLOOD SPECIMENOrdering Facility: [facility] Address: [address] [place] [address] Performed By: #### 5 7021-8 ####[facility] LABCLIA [id number] [place] [address] [place] Erythrocyte distribution width (RBC) [Ratio] 13.1 % Normal 11.5-15.0 [facility] Comment on above: Order Comment: Speci men Type: BLOOD SPECIMENOrdering Facility: [facility] Address: [address] [place] [address] Performed By: #### 5 7021-8 ####[facility] LABCLIA [id number] [place] [id number] [place] Hematocrit (Bld) [Volume fraction] 41.2 % Normal 39.0-51.0 [facility] Comment on above: Order Comment: Speci men Type: BLOOD SPECIMENOrdering Facility: [facility] Address: [address] [place] [address] Performed By: #### 5 7021-8 ####[facility] LABCLIA [id number] [place] [address] [place] Hemoglobin (Bld) [Mass/Vol] 13.7 g/dL Normal 13.0-17.0 [facility] Comment on above: Order Comment: Speci men Type: BLOOD SPECIMENOrdering Facility: [facility] Address: [address] [place] [address] Performed By: #### 5 7021-8 ####[facility] LABIA [id number] [place] [address] [place] Immature granulocytes (Bld) [#/Vol] 0.03 10*3/uL Normal <0.10 [facility] Comment on above: Order Comment: Speci men Type: BLOOD SPECIMENOrdering Facility: [facility] Address: [address] [place] [address] Performed By: #### 5 7021-8 ####[facility] LABIA [id number] [place] [address] [place] Immature granulocytes/100 WBC (Bld) 0.4 % Normal [facility] Comment on above: Order Comment: Speci men Type: BLOOD SPECIMENOrdering Facility: [facility] Address: [address] [place] [address] Performed By: #### 5 7021-8 ####[facility] LABIA [id number] [place] [address] [place] Lymphocytes (Bld) [#/Vol] 1.10 10*3/uL Normal 1.00-4.00 [facility] Comment on above: Order Comment: Speci men Type: BLOOD SPECIMENOrdering Facility: [facility] Address: [address] [place] [address] Performed By: #### 5 7021-8 ####[facility] LABIA [id number] [place] [address] [place] Lymphocytes/100 WBC (Bld) 13.8 % Normal [facility] Comment on above: Order Comment: Speci men Type: BLOOD SPECIMENOrdering Facility: [facility] Address: [address] [place] [address] Performed By: #### 5 7021-8 ####[facility] LABIA [id number] [place] [address] [place] MCH (RBC) [Entitic mass] 30.0 pg Normal 26.0-34.0 [facility] Comment on above: Order Comment: Speci men Type: BLOOD SPECIMENOrdering Facility: [facility] Address: [address] [place] [address] Performed By: #### 5 7021-8 ####[facility] LABIA [id number] [place] [address] [place] MCHC (RBC) [Mass/Vol] 33.3 g/dL Normal 30.5-36.0 [facility] Comment on above: Order Comment: Speci men Type: BLOOD SPECIMENOrdering Facility: [facility] Address: [address] [place] [address] Performed By: #### 5 7021-8 ####[facility] LABIA [id number] [place] [address] [place] MCV (RBC) [Entitic vol] 90.2 fL Normal 80.0-100.0 [facility] Comment on above: Order Comment: Speci men Type: BLOOD SPECIMENOrdering Facility: [facility] Address: [address] [place] [address] Performed By: #### 5 7021-8 ####[facility] LABIA [id number] [place] [address] [place] Monocytes (Bld) [#/Vol] 0.69 10*3/uL Normal <0.87 [facility] Comment on above: Order Comment: Speci men Type: BLOOD SPECIMENOrdering Facility: [facility] Address: [address] [place] [address] Performed By: #### 5 7021-8 ####[facility] LABCLIA [id number] [address] [address] [place] Monocytes/100 WBC (Bld) 8.6 % Normal [facility] Comment on above: Order Comment: Speci men Type: BLOOD SPECIMENOrdering Facility: [facility] Address: [address] [place] [address] Performed By: #### 5 7021-8 ####[facility] LABCLIA [id number] [address], [place] [address] [place] Neutrophils (Bld) [#/Vol] 5.90 10*3/uL Normal 1.45-7.50 [facility] Comment on above: Order Comment: Speci men Type: BLOOD SPECIMENOrdering Facility: [facility] Address: [address] [place] [address] Performed By: #### 5 7021-8 ####[facility] LABCLIA [id number] [place] [id number] [place] Neutrophils/100 WBC (Bld) 73.8 % Normal [facility] Comment on above: Order Comment: Speci men Type: BLOOD SPECIMENOrdering Facility: [facility] Address: [address] [place] [address] Performed By: #### 5 7021-8 ####[facility] LABCLIA [id number] [place] [id number] [place] Nucleated RBC (Bld) [#/Vol] 10*3/uL Normal <0.01 [facility] Comment on above: Order Comment: Speci men Type: BLOOD SPECIMENOrdering Facility: [facility] Address: [address] [place] [address] Performed By: #### 5 7021-8 ####[facility] LABCLIA [id number] [address], [place] [address] [place] Nucleated RBC/100 WBC (Bld) [Ratio] 0.0 /100 WBC Normal [facility] Comment on above: Order Comment: Speci men Type: BLOOD SPECIMENOrdering Facility: [facility] Address: [address] [place] [address] Performed By: #### 5 7021-8 ####[facility] LABIA [id number] [address], [place] [address] [place] Platelet mean volume (Bld) [Entitic vol] 10.5 fL Normal 9.0-12.7 [facility] Comment on above: Order Comment: Speci men Type: BLOOD SPECIMENOrdering Facility: [facility] Address: [address] [place] [address] Performed By: #### 5 7021-8 ####[facility] LABIA [id number] [place] [address] [place] Platelets (Bld) [#/Vol] 243 10*3/uL Normal 150-400 [facility] Comment on above: Order Comment: Speci men Type: BLOOD SPECIMENOrdering Facility: [facility] Address: [address] [place] [address] Performed By: #### 5 7021-8 ####[facility] LABIA [id number] [place] [address] [place] RBC (Bld) [#/Vol] 4.57 10*6/uL Normal 4.20-6.00 [facility] Comment on above: Order Comment: Speci men Type: BLOOD SPECIMENOrdering Facility: [facility] Address: [address] [place] [address] Performed By: #### 5 7021-8 ####[facility] LABIA [id number] [place] [id number] [place] WBC (Bld) [#/Vol] 7.99 10*3/uL Normal 3.70-11.00 [facility] Comment on above: Order Comment: Speci men Type: BLOOD SPECIMENOrdering Facility: [facility] Address: [address] [place] [address] Performed By: #### 5 7021-8 ####[facility] LABCLIA [id number] [place] [address] [place] Comprehensive metabolic 2000 panelon 07-30-2025 Albumin [Mass/Vol] 4.2 g/dL Normal 3.9-4.9 [facility] Comment on above: Order Comment: Speci men Type: BLOOD SPECIMENOrdering Facility: [facility] Address: [address] [place] [address] Performed By: #### 2 4323-8, LIPNF, 51605-0 ####[facility] LABCLIA [id number] [place] [address] [place] ALP [Catalytic activity/Vol] 68 U/L Normal 38-113 [facility] Comment on above: Order Comment: Speci men Type: BLOOD SPECIMENOrdering Facility: [facility] Address: [address] [place] [address] Performed By: #### 2 4323-8, LIPNF, 43661-2 ####[facility] LABCLIA [id number] [place] [address] [place] ALT [Catalytic activity/Vol] 26 U/L Normal 10-54 [facility] Comment on above: Order Comment: Speci men Type: BLOOD SPECIMENOrdering Facility: [facility] Address: [address] [place] [address] Performed By: #### 2 4323-8, LIPNF, 79274-4 ####[facility] LABCLIA [id number] [place] [id number] [place] Anion gap [Moles/Vol] 12 mmol/L Normal 8-15 [facility] Comment on above: Order Comment: Speci men Type: BLOOD SPECIMENOrdering Facility: [facility] Address: [address] [place] [address] Performed By: #### 2 4323-8, LIPNF, 77295-9 ####[facility] LABCLIA [id number] [place] [id number] [place] AST [Catalytic activity/Vol] 21 U/L Normal 14-40 [facility] Comment on above: Order Comment: Speci men Type: BLOOD SPECIMENOrdering Facility: [facility] Address: [address] [place] [address] Performed By: #### 2 4323-8, LIPNF, 66324-1 ####[facility] LABCLIA [id number] [place] [address] [place] Bilirubin [Mass/Vol] 0.4 mg/dL Normal 0.2-1.3 [facility] Comment on above: Order Comment: Speci men Type: BLOOD SPECIMENOrdering Facility: [facility] Address: [address] [place] [address] Performed By: #### 2 4323-8, LIPNF, 21069-5 ####[facility] LABCLIA [id number] [place] [id number] [place] Calcium [Mass/Vol] 9.3 mg/dL Normal 8.5-10.2 [facility] Comment on above: Order Comment: Speci men Type: BLOOD SPECIMENOrdering Facility: [facility] Address: [address] [place], [place] [address] Performed By: #### 2 4323-8, LIPNF, 37662-7 ####[facility] LABCLIA [id number] [place] [id number] [place] Chloride [Moles/Vol] 100 mmol/L Normal 98-107 [facility] Comment on above: Order Comment: Speci men Type: BLOOD SPECIMENOrdering Facility: [facility] Address: [address] [place] [address] Performed By: #### 2 4323-8, LIPNF, 29476-8 ####[facility] LABCLIA [id number] [place] [address] [place] CO2 [Moles/Vol] 24 mmol/L Normal 22-30 [facility] Comment on above: Order Comment: Speci men Type: BLOOD SPECIMENOrdering Facility: [facility] Address: [address] [place] [address] Performed By: #### 2 4323-8, LIPNF, 28791-2 ####[facility] LABIA [id number] [place] [address] [place] Creatinine [Mass/Vol] 1.66 mg/dL High 0.73-1.22 [facility] Comment on above: Order Comment: Speci men Type: BLOOD SPECIMENOrdering Facility: [facility] Address: [address] [place] [address] Performed By: #### 2 4323-8, LIPNF, 02324-4 ####[facility] LABIA [id number] [place] [address] [place] eGFRcr SerPlBld CKD-EPI 2020 44 mL/min/1.73m??? Low >=60 [facility] Comment on above: Order Comment: Speci men Type: BLOOD SPECIMENOrdering Facility: [facility] Address: [address] [place] [address] Result Comment: Rosalba mated Glomerular Filtration Rate [...] GFR. Performed By: #### 2 4323-8, LIPNF, 92434-9 ####[facility] LABCLIA [id number] [place] [address] [place] Glucose [Mass/Vol] 160 mg/dL High 74-99 [facility] Comment on above: Order Comment: Speci men Type: BLOOD SPECIMENOrdering Facility: [facility] Address: [address] [place] [address] Result Comment: The [place] Diabetes Association (ADA) provides guidance for cutoff [...] Standards of Medical Care in Diabetes 2016, [place] Diabetes Association. Diabetes Care. 2016.39(Suppl 1). Performed By: #### 2 4323-8, LIPNF, 53212-7 ####[facility] LABIA [id number] [place] [address] [place] Potassium [Moles/Vol] 4.6 mmol/L Normal 3.7-5.1 [facility] Comment on above: Order Comment: Speci men Type: BLOOD SPECIMENOrdering Facility: [facility] Address: [address] [place] [address] Performed By: #### 2 4323-8, LIPNF, 26127-4 ####[facility] [id number] [place] [address] [place] Protein [Mass/Vol] 6.5 g/dL Normal 6.3-8.0 [facility] Comment on above: Order Comment: Speci men Type: BLOOD SPECIMENOrdering Facility: [facility] Address: [address] [place] [address] Performed By: #### 2 4323-8, LIPNF, 66745-0 ####[facility] LABCLIA [id number] [address] [place] [address] [place] Sodium [Moles/Vol] 136 mmol/L Normal 136-144 [facility] Comment on above: Order Comment: Speci men Type: BLOOD SPECIMENOrdering Facility: [facility] Address: [address] [place] [address] Performed By: #### 2 4323-8, LIPCORNELIO, 30960-3 ####[facility] LABIA [id number] [address] [place] [address] [place] Urea nitrogen [Mass/Vol] 23 mg/dL Normal 9-24 [facility] Comment on above: Order Comment: Speci men Type: BLOOD SPECIMENOrdering Facility: [facility] Address: [address] [place] [address] Performed By: #### 2 4323-8, LIPCORNELIO, 43454-4 ####[facility] [id number] [address] [place] [address] [place] HbA1c (Bld)on 07-30-2025 Average glucose Estimated from glycated hemoglobin (Bld) [Mass/Vol] 123 mg/dL Normal [facility] Comment on above: Order Comment: Speci men Type: BLOOD SPECIMENOrdering Facility: [facility] Address: [address] [place] [address] Result Comment: eAG: (Estimated average glucose) is a calculated value from HgbA1c and is outside dealer sales representative of the average blood glucose level in the last 2-3 month period. Performed By: #### 5 5454-3 ####[facility] LABIA [id number] [address] [address] [place] HbA1c (Bld) [Mass fraction] 5.9 % High 4.3-5.6 [facility] Comment on above: Order Comment: Speci men Type: BLOOD SPECIMENOrdering Facility: [facility] Address: [address] [place] [address] Result Comment: [place] Diabetes Association guidelines indicate that patients with HgbA1c in the range 5.7-6.4% are at increased risk for development of diabetes, and intervention by lifestyle modification may be beneficial. HgbA1c greater or equal to 6.5% is considered diagnostic of diabetes. Performed By: #### 5 5454-3 ####[facility] LABCLIA [id number] [address] [address] [place] Iron and Iron binding capaci ty panelon 07-30-2025 Iron [Mass/Vol] 70 ug/dL Normal 41-186 [facility] Comment on above: Order Comment: Speci men Type: BLOOD SPECIMENOrdering Facility: [facility] Address: [address] [place] [address] Performed By: #### 2 4323-8, LIPNF, 30812-8 ####[facility] LABCLIA [id number] [place] [id number] [place] [facility] Iron binding capacity [Mass/Vol] 310 ug/dL Normal 232-386 [facility] [facility] Comment on above: Order Comment: Speci men Type: BLOOD SPECIMENOrdering Facility: [facility] Address: [address] [place] [address] Performed By: #### 2 4323-8, LIPNF, 87470-8 ####[facility] LABIA [id number] [address] [address] [place] Iron/TIBC [Molar ratio] 22.6 % Normal 15.0-57.0 [facility] Comment on above: Order Comment: Speci men Type: BLOOD SPECIMENOrdering Facility: [facility] Address: [address] [place] [id number] Performed By: #### 2 4323-8, LIPNF, 34717-1 ####[facility] LABCLIA [id number] [address] [address] [place] LIPID PANEL, NONFASTINGon Cholesterol [Mass/Vol] 112 mg/dL Normal <200 [facility] Comment on above: Order Comment: Speci men Type: BLOOD SPECIMENOrdering Facility: [facility] Address: [address] [place] [address] Result Comment: <200 mg/dL, Desirable 200-239 mg/dL, Borderline high >239 mg/dL, High Performed By: #### 2 4323-8, LIPNF, 38155-9 ####[facility] LABCLIA [id number] [facility] [id number] [address] [place] HDL CHOLESTEROL, NF 33 mg/dL Low >39 [facility] Comment on above: Order Comment: Speci men Type: BLOOD SPECIMENOrdering Facility: [facility] Address: [address] [place] [address] Result Comment: 40-5 9 mg/dL, Acceptable >59 mg/dL, High: Negative risk factor for coronary heart disease <40 mg/dL, Low: Positive risk factor for coronary heart disease Performed By: #### 2 4323-8, LIPNF, 65941-0 ####[facility] LABCLIA [id number] [address], [facility] [address] [place] LDL CHOLESTEROL CALCULATED, NF 55 mg/dL Normal <100 [facility] Comment on above: Order Comment: Speci men Type: BLOOD SPECIMENOrdering Facility: [facility] Address: [address] [place] [address] Result Comment: <100 mg/dL, Optimal 100-129 mg/dL, Near optimal/above optimal 130-159 mg/dL, Borderline high 160-189 mg/dL, High >189 mg/dL, Very high Secondary prevention optimal LDL Cholesterol levels are recommended to be <70 mg/dL LDL cholesterol is calculated using the Flowers-NIH equation. Performed By: #### 2 4323-8, LIPNF, 91160-7 ####[facility] LABCLIA [id number] [facility] [place] [id number], [place] [address] [place] LDL/HDL RATIO, NF 1.67 mg/dL Normal <2.54 [facility] Comment on above: Order Comment: Speci men Type: BLOOD SPECIMENOrdering Facility: [facility] Address: [address] [place] [address] Result Comment: Denise benitez: 1. National Cholesterol Education Program ATP III Guideline At-A-Glance Quick Desk Reference: National Heart, Lung, and Blood [place]. National Institutes of Health. 2001: NIH Publication No. 01-3305. 2. An International Atherosclerosis Society position paper: global recommendations for the management of dyslipidemia: executive summary, Atherosclerosis. 2014: 232(2):410-413. Performed By: #### 2 4323-8, LIPNF, 79324-0 ####[facility] LABCLIA [id number] [place] [address] [place] NON HDL CHOL, NF 79 mg/dL Normal <130 [facility] Comment on above: Order Comment: Speci men Type: BLOOD SPECIMENOrdering Facility: [facility] Address: [address] [place] [address] Result Comment: <130 mg/dL, Optimal 130-159 mg/dL, Near optimal/above optimal 160-189 mg/dL, Borderline high 190-219 mg/dL, High >219 mg/dL, Very high Secondary prevention optimal non HDL Cholesterol levels are recommended to be <100 mg/dL Performed By: #### 2 4323-8, LIPNF, 70871-1 ####[facility] LABCLIA [id number] [place] [address] [place] T CHOL/HDL RATIO NF 3.39 mg/dL Normal <5.10 [facility] Comment on above: Order Comment: Speci men Type: BLOOD SPECIMENOrdering Facility: [facility] Address: [address] [place] [address] Performed By: #### 2 4323-8, LIPNF, 70488-7 ####[facility] LABCLIA [id number] [place] [id number] [place] TRIGLYCERIDES, NF 139 mg/dL Normal <150 [facility] Comment on above: Order Comment: Speci men Type: BLOOD SPECIMENOrdering Facility: [facility] Address: [address] [id number] Result Comment: <150 mg/dL, Normal 150-199 mg/dL, Borderline high 200-499 mg/dL, High >499 mg/dL, Very high Performed By: #### 2 4323-8, LIPNF, 04652-7 ####[facility] LABCLIA [id number] [place] [id number] [place] VLDL CHOLESTEROL, NF 20 mg/dL Normal <30 [facility] Comment on above: Order Comment: Speci men Type: BLOOD SPECIMENOrdering Facility: [facility] Address: [address] [place] [address] Performed By: #### 2 4323-8, LIPNF, 25559-3 ####[facility] LABCLIA [id number] [place] [id number] [place] Endocrinology Visit Reporton 07-29-2025 Endocrinology Visit Report [facility] [address] [place] [address] OFFICE VISIT Date of Service: 07/29/25 MR#: [id number] Acct: [id number] Name: DAR ROSE Rep #: [id number] : 1955 Provider: AKOSUA huffman Age/Sex: 69/M Location: [facility] Status: Signed Intake Vital Signs 04/29/25 09:03 [...] statin. He has labs ordered through the [facility], he intends to have these done [...] sinus: normal (more content not included)... [facility] Tele[facility] (FAMDNA) DAR ROSE ([id number]) 1955 M Date Time Provider Department 05/30/25 [...] week left of that medication Pharmacy is [facility] please send new Rx's to that pharmacy Patient has been identified by name and birthdate. Duration of symptoms: N/A Person calling: self Call patient at: on cell [phone] (home) [phone] (cell) Was an appointment scheduled: No Closing statement: Results or non-symptom based questions: Thank you for calling [facility], your call will be returned within the next business day. 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 The following approved medication requests have [...] bedtime f (more content not included)... Normal [facility] Gastroenterology Visit Repor ton 05-28-2025 Gastroenterology Visit Report [facility] [address] [place] [address] OFFICE VISIT Date of Service: 05/28/25 MR#: [id number] Acct: [id number] Name: DAR ROSE Rep #: [id number] : 1955 Provider: AKOSUA medina Age/Sex: 69/M Location: [facility] Status: Signed Intake Vital Signs 11/27/24 08:38 [...] Reasons: 6 M FU Chief Complaint: follow-up Bi Report Developer Required: No Accompanied by: Self Is patient [...] 05/28/25 Rx mg/3 mL) subcutaneous pen injector (Vizolution) blood sugar diagnostic (OneTouch #100 ea 04/29/25 [...] Group in (more content not included)... Normal [facility] CNOVon 05-27-2025 CNOV Office Visit (PODIWS ) DAR ROSE ([id number]) 1955 M Date Time Provider Department 05/27/25 [...] (or decreased sensation in your feet) a screen repairer crusher should always cut your toenails. Be Careful [...] Go to your health care provider or screen repairer crusher to treat these conditions. Powerstep Original Full length. Can purchase at [employer] and boots,shoes and more here in [place], [employer] in [place] or [place]. Also can find in [place] in [facility]. Powersteps can also be purchased onTelePacific [employer] (more content not included)... Normal [facility] Endocrinology Visit Reporton 04-29-2025 Endocrinology Visit Report [facility] [address] [facility] [facility] [address] [place] [address] OFFICE VISIT Date of Service: 04/29/25 MR#: [id number] Acct: [id number] Name: DAR ROSE Rep #: [id number] : 1955 Provider: AKOSUA huffman Age/Sex: 69/M Location: [facility] Status: Signed Intake Vital Signs 01/28/25 09:45 [...] 3 M FU Chief Complaint: f/u diabetes Bi Report Developer Required: No Accompanied by: Self Is patient [...] 04/29/25 Rx mg/3 mL) subcutaneous pen injector (Vizolution) blood sugar diagnostic (OneTouch #100 ea 04/29/25 [...] nose normal (more content not included)... Normal [facility] Laboratory - Hematology and Cell countsOrdered By: Whit Zambrano on 04-29-2025 HbA1c (Bld) [Mass fraction] 6.1 % 4.2-6.3 [facility] CNOVon 04-01-2025 CNOV Office Visit (UCWSTR ) MILTON,DAR Coello ([id number]) 1955 M Date Time Provider Department 04/01/25 8:15 AM LOREN VALLECILLOWSTR During your visit today, we recorded the following information about you: Temperature Pulse Respiration Blood pressure 97.2 degrees 60/minute 16/minute 122/78 Weight 84.2 kg Loren Vallecillo APRN.OFFICE ADMIN 04/01/2025 8:40 AM Signed Patient presents with: [...] Patient agreeable with treatment plan. Loren Vallecillo APRN.OFFICE ADMIN Subjective The patient is a 69-year-old male [...] with Nexium (more content not included)... Normal [facility] MILTONDAR Mode ([id number]) 1955 Date Time Provider Department 03/28/25 CRUZ [...] 90 tablets. Pharmacy has been updated in [facility] Irma Collier March 28, 2025 1:59 [...] mL auto-injecto (more content not included)... [facility] Nurse Visit (FAMPWS) DAR ROSE ([id number]) 1955 M Date Time Provider Department 03/19/25 [...] to t (more content not included)... Normal [facility] CNOVon 02-18-2025 CNOV Office Visit (UCWSTR ) DAR ROSE ([id number]) 1955 M Date Time Provider Department 02/18/25 8:45 AM ASIM DENIS During your visit today, we recorded the following information about you: Temperature Pulse Respiration Blood pressure 96.9 degrees 78/minute 16/minute 102/60 Weight 83.2 kg Asim Denis APRN.OFFICE ADMIN 02/18/2025 9:06 AM Signed [facility] [...] history is provided by the patient. No game designer/creative director was used. Sinus Problem Associated symptoms include [...] bilateral 09/09/2017 Stage 3a chronic kidney disease ([facility]) 07/12/2024 SVT (supraventricular tachycardia) ([facility]) 05/20/2021 Treated with Ablation: 2013 Tinnitus of both ears 12/30/2023 Type 2 diabetes mellitus with retinopathy, without long-term current use of insulin ([facility]) 09/09/2017 Uncontrolled type 2 diabetes mellitus with stage 3 chronic kidney disease, without long-term current use of insulin 01/30/2018 Vitreous syneresis of both eyes 05/30/2015 Well adult exam 08/23/2022 PAST SURGICAL HISTORY Procedure Laterality Date COLONOSCOPY 2011 COLONOSCOPY 06/01/2022 COLONOSCOPY FLX (more content not included)... Normal [facility] CNOVon 01-29-2025 CNOV Office Visit (PODIWS ) MILTON,DAR Mdoe ([id number]) 1955 M Date Time Provider Department 01/29/25 [...] disease, without long-term current use of insulin ([facility]) 02/24/2019 Decreased libido 01/30/2018 Degenerative retinal drusen [...] kidney disease (HCC) 07/12/2024 SVT (supraventricular tachycardia) ([facility]) 05/20/2021 Treated with Ablation: 2013 Tinnitus of [...] then i (more content not included)... Normal [facility] Endocrinology Visit Reporton 01-28-2025 Endocrinology Visit Report [facility] [address] [place] [address] OFFICE VISIT Date of Service: 01/28/25 MR#: [id number] Acct: [id number] Name: DAR ROSE Rep #: [id number] : 1955 Provider: AKOSUA huffman Age/Sex: 69/M Location: [facility] Status: Signed Intake Vital Signs 06/20/23 11:41 [...] to inspectio (more content not included)... Normal [facility] 25(OH)D3 [facility] 25-hydroxyvitamin D3 [Mass/Vol] 33.6 ng/mL Normal 31.0-80.0 [facility] Comment on above: Order Comment: Speci men Type: BLOOD SPECIMENOrdering Facility: [facility] Address: [address] [place] [address] Result Comment: Clas sification of 25 [place] Vitamin D status: Deficiency/Insufficiency: < or = 30 ng/ml. Sufficiency/Optimal Levels: 31-80 ng/mL Toxicity: > 100 ng/mL. Test performed by chemiluminescent immunoassay. Performed By: #### 1 989-3 ####[facility] [id number] [place] [address] [place] Calcium [facility] 025 Calcium [Mass/Vol] 9.7 mg/dL Normal 8.5-10.2 [facility] Comment on above: Order Comment: Speci men Type: BLOOD SPECIMENOrdering Facility: [facility] Address: [address] [place] [address] Performed By: #### 1 7861-6, 2731-8 ####[facility] LABIA [id number] [place] [address] [place] PTH-Intact [facility] - Parathyrin.intact [Mass/Vol] 35 pg/mL Normal 15-65 [facility] Comment on above: Order Comment: Speci men Type: BLOOD SPECIMENOrdering Facility: [facility] Address: [address] [place] [address] Performed By: #### 1 7861-6, 2731-8 ####[facility] LABCLIA [id number] [place] [address] [place] ALBUMIN/CREATININE RATIO, UR INEon 01-16-2025 Albumin DL <= 20 mg/L (U) [Mass/Vol] mg/dL Normal [facility] Comment on above: Order Comment: Speci men Type: URINE SPECIMENOrdering Facility: [facility] Address: [address] [place] [address] Performed By: #### U ACR ####[facility] LABCLIA [id number] [place] [address] [place] Albumin/Creatinine (U) [Mass ratio] <15 Normal <30 [facility] Comment on above: Order Comment: Speci men Type: URINE SPECIMENOrdering Facility: [facility] Address: [address] [place] [address] Result Comment: Adul t Male and Female Nephrotic Criteria: <30 mg/g is considered normal to mildly increased 30-300 mg/g is considered moderately increased >300 mg/g is considered severely increased KDIGO. (2013). KDIGO 2012 Clinical Practice Guideline for the Evaluation and Management of Chronic Kidney Disease. Official Journal of the International Society of Nephrology, 3(1), 1-150. Performed By: #### U ACR ####[facility] LABCLIA [id number] [place] [address] [place] Creatinine (U) [Mass/Vol] 82.7 mg/dL Normal 20.0-300.0 [facility] Comment on above: Order Comment: Speci men Type: URINE SPECIMENOrdering Facility: [facility] Address: [address] [place] [address] Performed By: #### U ACR ####[facility] LABCLIA [id number] [address], [facility] [address] [place] CBC W Auto Differential pane l (Bld)on 01-16-2025 Basophils (Bld) [#/Vol] 0.05 10*3/uL Normal <0.11 [facility] Comment on above: Order Comment: Speci men Type: BLOOD SPECIMENOrdering Facility: [facility] Address: [address] [place] [address] Performed By: #### 5 7021-8 ####[facility] LABCLIA [id number] [address], [place] [address] [place] Basophils/100 WBC (Bld) 0.8 % Normal [facility] Comment on above: Order Comment: Speci men Type: BLOOD SPECIMENOrdering Facility: [facility] Address: [address] [place] [address] Performed By: #### 5 7021-8 ####[facility] LABCLIA [id number] [place] [address] [place] Differential cell count method Nom (Bld) Auto Normal [facility] Comment on above: Order Comment: Speci men Type: BLOOD SPECIMENOrdering Facility: [facility] Address: [address] [place] [address] Performed By: #### 5 7021-8 ####[facility] LABCLIA [id number] [place] [address] [place] Eosinophils (Bld) [#/Vol] 0.18 10*3/uL Normal <0.46 [facility] Comment on above: Order Comment: Speci men Type: BLOOD SPECIMENOrdering Facility: [facility] Address: [address] [place] [address] Performed By: #### 5 7021-8 ####[facility] LABCLIA [id number] [place] [id number] [place] Eosinophils/100 WBC (Bld) 2.7 % Normal [facility] Comment on above: Order Comment: Speci men Type: BLOOD SPECIMENOrdering Facility: [facility] Address: [address] [place] [address] Performed By: #### 5 7021-8 ####[facility] LABIA [id number] [place] [address] [place] Erythrocyte distribution width (RBC) [Ratio] 13.2 % Normal 11.5-15.0 [facility] Comment on above: Order Comment: Speci men Type: BLOOD SPECIMENOrdering Facility: [facility] Address: [address] [place] [address] Performed By: #### 5 7021-8 ####[facility] LABIA [id number] [place] [address] [place] Hematocrit (Bld) [Volume fraction] 39.5 % Normal 39.0-51.0 [facility] Comment on above: Order Comment: Speci men Type: BLOOD SPECIMENOrdering Facility: [facility] Address: [address] [place] [address] Performed By: #### 5 7021-8 ####[facility] LABIA [id number] [place] [address] [place] Hemoglobin (Bld) [Mass/Vol] 12.9 g/dL Low 13.0-17.0 [facility] Comment on above: Order Comment: Speci men Type: BLOOD SPECIMENOrdering Facility: [facility] Address: [address] [place] [address] Performed By: #### 5 7021-8 ####[facility] LABIA [id number] [place] [address] [place] Immature granulocytes (Bld) [#/Vol] 0.03 10*3/uL Normal <0.10 [facility] Comment on above: Order Comment: Speci men Type: BLOOD SPECIMENOrdering Facility: [facility] Address: [address] [place] [address] Performed By: #### 5 7021-8 ####[facility] LABCLIA [id number] [place] [address] [place] Immature granulocytes/100 WBC (Bld) 0.5 % Normal [facility] Comment on above: Order Comment: Speci men Type: BLOOD SPECIMENOrdering Facility: [facility] Address: [address] [place] [address] Performed By: #### 5 7021-8 ####[facility] LABCLIA [id number] [place] [address] [place] Lymphocytes (Bld) [#/Vol] 1.37 10*3/uL Normal 1.00-4.00 [facility] Comment on above: Order Comment: Speci men Type: BLOOD SPECIMENOrdering Facility: [facility] Address: [address] [place] [address] Performed By: #### 5 7021-8 ####[facility] LABIA [id number] [place] [address] [place] Lymphocytes/100 WBC (Bld) 20.7 % Normal [facility] Comment on above: Order Comment: Speci men Type: BLOOD SPECIMENOrdering Facility: [facility] Address: [address] [place] [address] Performed By: #### 5 7021-8 ####[facility] LABIA [id number] [place] [address] [place] MCH (RBC) [Entitic mass] 28.8 pg Normal 26.0-34.0 [facility] Comment on above: Order Comment: Speci men Type: BLOOD SPECIMENOrdering Facility: [facility] Address: [address] [place] [address] Performed By: #### 5 7021-8 ####[facility] LABCLIA [id number] [place] [id number] [place] MCHC (RBC) [Mass/Vol] 32.7 g/dL Normal 30.5-36.0 [facility] Comment on above: Order Comment: Speci men Type: BLOOD SPECIMENOrdering Facility: [facility] Address: [address] [place] [address] Performed By: #### 5 7021-8 ####[facility] LABCLIA [id number] [address] [address] [place] MCV (RBC) [Entitic vol] 88.2 fL Normal 80.0-100.0 [facility] Comment on above: Order Comment: Speci men Type: BLOOD SPECIMENOrdering Facility: [facility] Address: [address] [place] [address] Performed By: #### 5 7021-8 ####[facility] LABIA [id number] [place] [address] [place] Monocytes (Bld) [#/Vol] 0.60 10*3/uL Normal <0.87 [facility] Comment on above: Order Comment: Speci men Type: BLOOD SPECIMENOrdering Facility: [facility] Address: [address] [place] [address] Performed By: #### 5 7021-8 ####[facility] LABIA [id number] [place] [address] [place] Monocytes/100 WBC (Bld) 9.0 % Normal [facility] Comment on above: Order Comment: Speci men Type: BLOOD SPECIMENOrdering Facility: [facility] Address: [address] [place] [address] Performed By: #### 5 7021-8 ####[facility] LABIA [id number] [place] [address] [place] Neutrophils (Bld) [#/Vol] 4.40 10*3/uL Normal 1.45-7.50 [facility] Comment on above: Order Comment: Speci men Type: BLOOD SPECIMENOrdering Facility: [facility] Address: [address] [place] [address] Performed By: #### 5 7021-8 ####[facility] LABCLIA [id number] [place] [address] [place] Neutrophils/100 WBC (Bld) 66.3 % Normal [facility] Comment on above: Order Comment: Speci men Type: BLOOD SPECIMENOrdering Facility: [facility] Address: [address] [place] [address] Performed By: #### 5 7021-8 ####[facility] LABCLIA [id number] [place] [address] [place] Nucleated RBC (Bld) [#/Vol] 10*3/uL Normal <0.01 [facility] Comment on above: Order Comment: Speci men Type: BLOOD SPECIMENOrdering Facility: [facility] Address: [address] [place] [address] Performed By: #### 5 7021-8 ####[facility] LABIA [id number] [place] [address] [place] Nucleated RBC/100 WBC (Bld) [Ratio] 0.0 /100 WBC Normal [facility] Comment on above: Order Comment: Speci men Type: BLOOD SPECIMENOrdering Facility: [facility] Address: [address] [place] [address] Performed By: #### 5 7021-8 ####[facility] LABIA [id number] [place] [address] [place] Platelet mean volume (Bld) [Entitic vol] 10.4 fL Normal 9.0-12.7 [facility] Comment on above: Order Comment: Speci men Type: BLOOD SPECIMENOrdering Facility: [facility] Address: [address] [place] [address] Performed By: #### 5 7021-8 ####[facility] LABIA [id number] [place] [address] [place] Platelets (Bld) [#/Vol] 308 10*3/uL Normal 150-400 [facility] Comment on above: Order Comment: Speci men Type: BLOOD SPECIMENOrdering Facility: [facility] Address: [address] [place] [address] Performed By: #### 5 7021-8 ####[facility] LABCLIA [id number] [place] [address] [place] RBC (Bld) [#/Vol] 4.48 10*6/uL Normal 4.20-6.00 [facility] Comment on above: Order Comment: Speci men Type: BLOOD SPECIMENOrdering Facility: [facility] [facility] Address: [address] [place] [address] Performed By: #### 5 7021-8 ####[facility] LABIA [id number] [place] [address] [place] WBC (Bld) [#/Vol] 6.63 10*3/uL Normal 3.70-11.00 [facility] Comment on above: Order Comment: Speci men Type: BLOOD SPECIMENOrdering Facility: [facility] Address: [address] [place] [address] Performed By: #### 5 7021-8 ####[facility]IA [id number] [place] [address] [place] CNOVon 01-16-2025 CNOV Office Visit (FAMPWS ) DAR ROSE ([id number]) 1955 M Date Time Provider Department 01/16/25 [...] 6.0 High CM 6.9 High CM Comment: [place] Diabetes Association guidelines indicate that patients with HgbA1c in the range 5.7-6.4% ar Patient sees Podiatry next visit 01/2025 Patient sees Ophthalmology last visit 05/[address] Abdi in [facility] for his MASH. Last 6 Encounter BP [...] years EGD (more content not included)... Normal [facility] Comprehensive metabolic 2000 panelon 01-16-2025 Albumin [Mass/Vol] 4.6 g/dL Normal 3.9-4.9 [facility] Comment on above: Order Comment: Speci men Type: BLOOD SPECIMENOrdering Facility: [facility] Address: [address] [place] [address] Performed By: #### 2 4323-8, 55459-1, LIPNF, 86219-3 ####[facility] LABCLIA [id number] [place] [address] [place] ALP [Catalytic activity/Vol] 55 U/L Normal 38-113 [facility] Comment on above: Order Comment: Speci men Type: BLOOD SPECIMENOrdering Facility: [facility] Address: [address] [place] [address] Performed By: #### 2 4323-8, 69608-1, LIPNF, 43808-4 ####[facility] LABCLIA [id number] [place] [id number] [place] ALT [Catalytic activity/Vol] 26 U/L Normal 10-54 [facility] Comment on above: Order Comment: Speci men Type: BLOOD SPECIMENOrdering Facility: [facility] Address: [address] [place] [address] Performed By: #### 2 4323-8, 31943-2, LIPNF, 54230-3 ####[facility] LABCLIA [id number] [address] [address] [place] Anion gap [Moles/Vol] 11 mmol/L Normal 8-15 [facility] Comment on above: Order Comment: Speci men Type: BLOOD SPECIMENOrdering Facility: [facility] Address: [address] [place] [address] Performed By: #### 2 4323-8, 12349-8, LIPNF, 19358-9 ####[facility] LABCLIA [id number] [place] [address] [place] AST [Catalytic activity/Vol] 27 U/L Normal 14-40 [facility] Comment on above: Order Comment: Speci men Type: BLOOD SPECIMENOrdering Facility: [facility] Address: [address] [place] [address] Performed By: #### 2 4323-8, 72976-3, LIPNF, 87055-5 ####[facility]IA [id number] [place] [id number] [place] Bilirubin [Mass/Vol] 0.3 mg/dL Normal 0.2-1.3 [facility] Comment on above: Order Comment: Speci men Type: BLOOD SPECIMENOrdering Facility: [facility] Address: [address] [place] [address] Performed By: #### 2 4323-8, 96568-4, LIPNF, 18078-1 ####[facility] LABCLIA [id number] [place] [id number] [place] Calcium [Mass/Vol] 10.8 mg/dL High 8.5-10.2 [facility] Comment on above: Order Comment: Speci men Type: BLOOD SPECIMENOrdering Facility: [facility] Address: [address] [place] [address] Performed By: #### 2 4323-8, 76465-0, LIPNF, 51505-6 ####[facility] LABCLIA [id number] [address] [address] [place] Chloride [Moles/Vol] 102 mmol/L Normal 98-107 [facility] Comment on above: Order Comment: Speci men Type: BLOOD SPECIMENOrdering Facility: [facility] Address: [address] [place] [address] Performed By: #### 2 4323-8, 63426-7, LIPNF, 56688-9 ####[facility] LABCLIA [id number] [place] [address] [place] CO2 [Moles/Vol] 26 mmol/L Normal 22-30 [facility] Comment on above: Order Comment: Speci men Type: BLOOD SPECIMENOrdering Facility: [facility] Address: [address] [place] [address] Performed By: #### 2 4323-8, 92982-3, LIPNF, 81263-0 ####[facility]IA [id number] [place] [address] [place] Creatinine [Mass/Vol] 1.58 mg/dL High 0.73-1.22 [facility] Comment on above: Order Comment: Speci men Type: BLOOD SPECIMENOrdering Facility: [facility] Address: [address] [place] [address] Performed By: #### 2 4323-8, 41176-5, LIPNF, 93618-2 ####[facility]IA [id number] [place] [id number] [place] Creatinine and Glomerular filtration rate.predicted panel (S/P/Bld) 46 mL/min/1.73m??? Low >=60 [facility] Comment on above: Order Comment: Speci men Type: BLOOD SPECIMENOrdering Facility: [facility] Address: [address] [place], [place] [address] Result Comment: Rosalba mated Glomerular Filtration Rate [...] actual GFR. Performed By: #### 2 4323-8, 76619-3, STEPHANE, 60174-2 ####[facility] LABCLIA [id number] [address] [address] [place] Glucose [Mass/Vol] 74 mg/dL Normal 74-99 [facility] Comment on above: Order Comment: Morena edwards Type: BLOOD SPECIMENOrdering Facility: [facility] Address: [address] [place] [address] Result Comment: The [place] Diabetes Association (ADA) provides guidance for cutoff [...] Standards of Medical Care in Diabetes 2016, [place] Diabetes Association. Diabetes Care. 2016.39(Suppl 1). Performed By: #### 2 4323-8, 15405-7, STEPHANE, 12742-7 ####[facility]IA [id number] [address] [address] [place] Potassium [Moles/Vol] 5.0 mmol/L Normal 3.7-5.1 [facility] Comment on above: Order Comment: Speci men Type: BLOOD SPECIMENOrdering Facility: [facility] Address: [address] [place] [address] Performed By: #### 2 3-8, 16249-0, LIPNF, 73869-7 ####[facility]IA [id number] [address] [address] [place] Protein [Mass/Vol] 7.0 g/dL Normal 6.3-8.0 [facility] Comment on above: Order Comment: Speci men Type: BLOOD SPECIMENOrdering Facility: [facility] Address: [address] [place] [address] Performed By: #### 2 4323-8, 40144-6, LIPNF, 14759-2 ####[facility]IA [id number] [place] [address] [place] Sodium [Moles/Vol] 139 mmol/L Normal 136-144 [facility] Comment on above: Order Comment: Speci men Type: BLOOD SPECIMENOrdering Facility: [facility] Address: [address] [place] [address] Performed By: #### 2 4323-8, 82725-5, LIPNF, 56457-4 ####[facility]IA [id number] [place] [address] [place] Urea nitrogen [Mass/Vol] 28 mg/dL High 9-24 [facility] Comment on above: Order Comment: Speci men Type: BLOOD SPECIMENOrdering Facility: [facility] Address: [address] [place] [address] Performed By: #### 2 4323-8, 89722-4, LIPNF, 41583-6 ####[facility]IA [id number] [address] [address] [place] HbA1c (Bld)on 01-16-2025 Average glucose Estimated from glycated hemoglobin (Bld) [Mass/Vol] 117 mg/dL Normal [facility] Comment on above: Order Comment: Speci men Type: BLOOD SPECIMENOrdering Facility: [facility] Address: [address] [place] [address] Result Comment: eAG: (Estimated average glucose) is a calculated value from HgbA1c and is outside dealer sales representative of the average blood glucose level in the last 2-3 month period. Performed By: #### 5 5454-3 ####[facility] LABCLIA [id number] [place] [address] [place] HbA1c (Bld) [Mass fraction] 5.7 % High 4.3-5.6 [facility] Comment on above: Order Comment: Speci men Type: BLOOD SPECIMENOrdering Facility: [facility] Address: [address] [place] [address] Result Comment: [place] Diabetes Association guidelines indicate that patients with HgbA1c in the range 5.7-6.4% are at increased risk for development of diabetes, and intervention by lifestyle modification may be beneficial. HgbA1c greater or equal to 6.5% is considered diagnostic of diabetes. Performed By: #### 5 5454-3 ####[facility]IA [id number] [place] [address] [place] Iron and Iron binding capaci ty panelon 01-16-2025 Iron [Mass/Vol] 63 ug/dL Normal 41-186 [facility] Comment on above: Order Comment: Speci men Type: BLOOD SPECIMENOrdering Facility: [facility] Address: [address] [place] [address] Performed By: #### 2 4323-8, 32252-2, LIPNF, 34854-2 ####[facility]IA [id number] [address] [place] Iron binding capacity [Mass/Vol] 412 ug/dL High 232-386 [facility] Comment on above: Order Comment: Speci men Type: BLOOD SPECIMENOrdering Facility: [facility] Address: [address] [place] [address] Performed By: #### 2 4323-8, 08436-6, LIPNF, 40935-2 ####[facility] LABCLIA [id number] [place] [id number] [place] Iron/TIBC [Molar ratio] 15.3 % Normal 15.0-57.0 [facility] Comment on above: Order Comment: Speci men Type: BLOOD SPECIMENOrdering Facility: [facility] Address: [address] [place] [address] Performed By: #### 2 4323-8, 80730-6, LIPNF, 48683-7 ####[facility] LABCLIA [id number] [address], [address] [place] LIPID PANEL, NONFASTINGon Cholesterol [Mass/Vol] 138 mg/dL Normal <200 [facility] Comment on above: Order Comment: Speci men Type: BLOOD SPECIMENOrdering Facility: [facility] Address: [address] [place] [address] Result Comment: <200 mg/dL, Desirable 200-239 mg/dL, Borderline high >239 mg/dL, High Performed By: #### 2 4323-8, 99157-9, LIPNF, 21382-0 ####[facility] LABCLIA [id number] [place] [id number] [place] HDL CHOLESTEROL, NF 38 mg/dL Low >39 [facility] Comment on above: Order Comment: Speci men Type: BLOOD SPECIMENOrdering Facility: [facility] Address: [address] [place] [address] Result Comment: 40-5 9 mg/dL, Acceptable >59 mg/dL, High: Negative risk factor for coronary heart disease <40 mg/dL, Low: Positive risk factor for coronary heart disease Performed By: #### 2 4323-8, 64930-3, LIPNF, 89075-9 ####[facility] LABCLIA [id number] [place] [id number] [place] LDL CHOLESTEROL, NF 83 mg/dL Normal <100 [facility] Comment on above: Order Comment: Speci men Type: BLOOD SPECIMENOrdering Facility: [facility] Address: [address] [place] [address] Result Comment: <100 mg/dL, Optimal 100-129 mg/dL, Near optimal/above optimal 130-159 mg/dL, Borderline high 160-189 mg/dL, High >189 mg/dL, Very high Secondary prevention optimal LDL Cholesterol levels are recommended to be < 70 mg/dL Performed By: #### 2 4323-8, 15686-0, LIPNF, 74751-3 ####[facility] LABCLIA [id number] [address] OF [facility] LDL/HDL RATIO, NF 2.18 mg/dL Normal <2.54 [facility] Comment on above: Order Comment: Speci men Type: BLOOD SPECIMENOrdering Facility: [facility] Address: [address] [place] [address] Result Comment: Refe rence: 1. National Cholesterol Education Program ATP III Guideline At-A-Glance Quick Desk Reference: National Heart, Lung, and Blood [place]. National Institutes of Health. 2001: NIH Publication No. 01-3305. 2. An International Atherosclerosis Society position paper: global recommendations for the management of dyslipidemia: executive summary, Atherosclerosis. 2014: 232(2):410-413. Performed By: #### 2 4323-8, 69880-6, LIPNF, 80309-4 ####[facility] LABCLIA [id number] [address] [place] NON HDL CHOL, NF 100 mg/dL Normal <130 [facility] Comment on above: Order Comment: Morena men Type: BLOOD SPECIMENOrdering Facility: [facility] Address: [address] [place] [address] Result Comment: <130 mg/dL, Optimal 130-159 mg/dL, Near optimal/above optimal 160-189 mg/dL, Borderline high 190-219 mg/dL, High >219 mg/dL, Very high Secondary prevention optimal non HDL Cholesterol levels are recommended to be <100 mg/dL Performed By: #### 2 4323-8, 69315-8, LIPNF, 94783-7 ####[facility] LABCLIA [id number] [address] [place] [address] [place] T CHOL/HDL RATIO NF 3.63 mg/dL Normal <5.10 [facility] Comment on above: Order Comment: Speci men Type: BLOOD SPECIMENOrdering Facility: [facility] Address: [address] [place] [address] Performed By: #### 2 4323-8, , LIPNF, 44482-6 ####[facility] LABCLIA [id number] [address] [address] [place] TRIGLYCERIDES, NF 86 mg/dL Normal <150 [facility] Comment on above: Order Comment: Speci men Type: BLOOD SPECIMENOrdering Facility: [facility] Address: [address] [place] [address] Result Comment: <150 mg/dL, Normal 150-199 mg/dL, Borderline high 200-499 mg/dL, High >499 mg/dL, Very high Performed By: #### 2 4323-8, , LIPNF, 75647-3 ####[facility] LABCLIA [id number] [place] [id number] [place] VLDL CHOLESTEROL, NF 17 mg/dL Normal <30 [facility] Comment on above: Order Comment: Speci men Type: BLOOD SPECIMENOrdering Facility: [facility] Address: [address] [place] [address] Performed By: #### 2 4323-8, , LIPNF, 52754-7 ####[facility] LABCLIA [id number] [address] [place] [address] [place] Magnesium SerPl-mCncon 01-16 Magnesium [Mass/Vol] 2.0 mg/dL Normal 1.7-2.3 [facility] Comment on above: Order Comment: Speci men Type: BLOOD SPECIMENOrdering Facility: [facility] Address: [address] [place] [address] Performed By: #### 2 4323-8, 00996-5, LIPNF, 21056-6 ####[facility] LABCLIA [id number] [address], [facility] [address] [place] Urinalysis complete panel (U )on 01-16-2025 Bacteria LM.HPF (Urine sed) [#/Area] Negative Normal Negative [facility] Comment on above: Order Comment: Speci men Type: URINE SPECIMENOrdering Facility: [facility] Address: [address] [place] [address] Performed By: #### 2 4356-8 ####[facility] LABCLIA [id number] [place] [address] [place] Bilirubin Ql (U) Negative Normal Negative [facility] Comment on above: Order Comment: Speci men Type: URINE SPECIMENOrdering Facility: [facility] Address: [address] [place] [address] Performed By: #### 2 4356-8 ####[facility] LABCLIA [id number] [place] [id number] [place] Clarity (Unsp spec) Clear Normal Clear [facility] Comment on above: Order Comment: Speci men Type: URINE SPECIMENOrdering Facility: [facility] Address: [address] [place] [address] Performed By: #### 2 4356-8 ####[facility] LABCLIA [id number] [place] [id number] [place] [facility] Color (U) Yellow Normal Yellow [facility] Comment on above: Order Comment: Speci men Type: URINE SPECIMENOrdering Facility: [facility] Address: [address] [place] [address] Performed By: #### 2 4356-8 ####[facility] LABCLIA [id number] [address] [place] [address] [place] Epithelial cells LM.HPF (Urine sed) [#/Area] None Seen Normal [facility] Comment on above: Order Comment: Speci men Type: URINE SPECIMENOrdering Facility: [facility] Address: [address] [place] [address] Performed By: #### 2 4356-8 ####[facility] LABCLIA [id number] [address] [place] [address] [place] Glucose Test strip (U) [Mass/Vol] Negative Normal Negative [facility] Comment on above: Order Comment: Speci men Type: URINE SPECIMENOrdering Facility: [facility] Address: [address] [place] [address] Performed By: #### 2 4356-8 ####[facility] LABCLIA [id number] [address], [place] [address] [place] Hemoglobin Ql (U) Negative Normal Negative [facility] Comment on above: Order Comment: Speci men Type: URINE SPECIMENOrdering Facility: [facility] Address: [address] [place] [address] Performed By: #### 2 4356-8 ####[facility] LABCLIA [id number] [address], [place] [address] [place] Hyaline casts (Urine sed) [#/Area] 0 /[LPF] Normal 0 /LPF [facility] Comment on above: Order Comment: Speci men Type: URINE SPECIMENOrdering Facility: [facility] Address: [address] [place] [address] Performed By: #### 2 4356-8 ####[facility] LABCLIA [id number] [address] [place] [address] [place] Ketones Ql (U) Negative Normal Negative [facility] Comment on above: Order Comment: Speci men Type: URINE SPECIMENOrdering Facility: [facility] Address: [address] [place] [address] Performed By: #### 2 4356-8 ####[facility] LABCLIA [id number] [place] [address] [place] Leukocyte esterase Test strip Ql (U) Negative Normal Negative [facility] Comment on above: Order Comment: Speci men Type: URINE SPECIMENOrdering Facility: [facility] Address: [address] [place] [address] Performed By: #### 2 4356-8 ####[facility] LABCLIA [id number] [place] [address] [place] Nitrite Ql (U) Negative Normal Negative [facility] Comment on above: Order Comment: Speci men Type: URINE SPECIMENOrdering Facility: [facility] Address: [address] [place] [address] Performed By: #### 2 4356-8 ####[facility] LABCLIA [id number] [place] [address] [place] pH (U) 6.0 [pH] Normal <8.5 [facility] Comment on above: Order Comment: Speci men Type: URINE SPECIMENOrdering Facility: [facility] Address: [address] [place] [address] Performed By: #### 2 4356-8 ####[facility] LABCLIA [id number] [place] [address] [place] Protein (U) [Mass/Vol] Negative Normal Negative [facility] Comment on above: Order Comment: Speci men Type: URINE SPECIMENOrdering Facility: [facility] Address: [address] [place] [address] Performed By: #### 2 4356-8 ####[facility] LABCLIA [id number] [place] [address] [place] RBC LM.HPF (Urine sed) [#/Area] 0-2 /HPF Normal 0-2 /HPF [facility] Comment on above: Order Comment: Speci men Type: URINE SPECIMENOrdering Facility: [facility] Address: [address] [place] [address] Performed By: #### 2 4356-8 ####[facility]IA [id number] [place] [address] [place] Specific gravity (U) [Rel density] 1.016 Normal 1.005-1.030 [facility] Comment on above: Order Comment: Speci men Type: URINE SPECIMENOrdering Facility: [facility] Address: [address] [place] [address] Performed By: #### 2 4356-8 ####[facility]IA [id number] [place] [address] [place] Urobilinogen Ql (U) 0.2 EU/dL Normal 0.2-1.0 EU/dL [facility] Comment on above: Order Comment: Speci men Type: URINE SPECIMENOrdering Facility: [facility] Address: [address] [place] [address] Performed By: #### 2 4356-8 ####[facility] [id number] [place] [address] [place] WBC LM.HPF (Urine sed) [#/Area] 0-5 /HPF Normal 0-5 /HPF [facility] Comment on above: Order Comment: Speci men Type: URINE SPECIMENOrdering Facility: [facility] Address: [address] [place] [address] Performed By: #### 2 4356-8 ####[facility] LABIA [id number] [place] [address] [place] Vit [facility] 025 Cobalamin (Vitamin B12) [Mass/Vol] 725 pg/mL Normal 232-1245 [facility] Comment on above: Order Comment: Speci men Type: BLOOD SPECIMENOrdering Facility: [facility] Address: [address] [place] [address] Performed By: #### 2 132-9 ####[facility] LABIA [id number] [address] [address] [place] Cardiology Visit Reporton Cardiology Visit Report [facility] [address] [place], [place] [address] OFFICE VISIT Date of Service: 12/24/24 MR#: [id number] Acct: [id number] Name: DAR ROSE Rep #: [id number] : 1955 Provider: EDY Flores Age/Sex: 69/M Location: [facility] Status: Signed HPI HPI History of Present [...] in 2021. 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 He is retired from [employer]. From a cardiac standpoint, patient is doing [...] 98 Intake Visit Reasons: 1 Y FU Bi Report Developer Required: No Is patient in pain?: No [...] you fallen in the past year?: No [facility] Medical History (Updated 12/24/24 @ 09:51 by [...] poor appetite, ano (more content not included)... [facility]AR [facility] ([id number]) 1955 M Date Time Provider Department 12/12/24 8:15 AM JEFFERY BROTHERS [facility] During your visit today, we recorded the following information about you: Temperature Pulse Respiration Blood pressure 97 degrees 69/minute 18/minute 148/75 Weight 83.3 kg Jeffery Brothers PA-C 12/12/2024 8:36 AM Signed This note was created using [employer]Ping[employer]. Subjective Dar Rose is a 69 year [...] bedtime. PRN (more content not included)... Normal [facility] L3410.9998on 12-03-2024 [facility] Misc. COMMENT Normal . [facility] Comment on above: Order Comment: [id number] 9ELF SERUM RED RF Result Comment: Test Ordered: [id number] Enhanced Liver Fibrosis (ELF) ELF(TM) Score 9.31 [...] trials. J Hepatol. 2020 Apr;73(1):26-39. Performed at: [address] [id number] Commercial Loan Manager: Josh Jloley MD, Phone: [phone] Performed at: [address] [id number] Commercial Loan Manager: Julio Cesar Cooper PhD, Phone: [phone] Performed By: #### L 3890.6300, L3100.0300, L3100.0460, L3410.9998, L100.0100, L500.4050, L3890.6100, L3890.6200 ####[facility] [id number] [place], [place], [address] Hepatitis A AB, Totalon - HEPATITIS A,TOT Negative Normal Negative [facility] Comment on above: Result Comment: Comm ent: The HAV total antibody assay detects both IgG and IgM but does not differentiate between them. A negative result suggests susceptibility to infection. A positive result could be due to vaccination, previously resolved infection or active infection. Testing for HAV IgM should be performed if active HAV infection is suspected. [facility] offers profiles that will automatically reflex positive HAV total antibody results to IgM (e.g., panel #[id number] HAV Antibody w/ Rfx). Performed at: [address] [id number] Commercial Loan Manager: Julio Cesar Cooper PhD, Phone: [phone] Performed By: #### L 3890.6300, L3100.0300, L3100.0460, L3410.9998, L100.0100, L500.4050, L3890.6100, L3890.6200 ####[facility] [address] [place], [address] Hepatitis B Core Ab Totalon 11-30-2024 HEP B CORE,TOT Negative Normal Negative [facility] Comment on above: Performed By: #### L 3890.6300, L3100.0300, L3100.0460, L3410.9998, L100.0100, L500.4050, L3890.6100, L3890.6200 ####[facility] [address] [place], [address] CBC W/Diff, Automatedon 11-01 Absolute Lymph 1.44 X10 3/uL Normal 0.83-4.51 [facility] Comment on above: Performed By: #### P SSI #### [facility] [address] [place], [address] Absolute Neut 5.3 X10 3/uL Normal 2.0-7.7 [facility] Comment on above: Performed By: #### P SSI #### [facility] [address] [place], [address] Basophils/100 WBC (Bld) 0.9 % Normal 0-1 [facility] Comment on above: Performed By: #### P SSI #### [facility] [address] [place], [address] Eosinophils/100 WBC (Bld) 3.0 % Normal 0-5 [facility] Comment on above: Performed By: #### P SSI #### [facility] [address] [place], [address] Erythrocyte distribution width (RBC) [Ratio] 13.0 % Normal 11.6-14.6 [facility] Comment on above: Performed By: #### P SSI #### [facility] [address] [place], [address] Hematocrit (Bld) [Volume fraction] 37.6 % Low 40-54 [facility] Comment on above: Performed By: #### P SSI #### [facility] [address] [place], [address] Hemoglobin (Bld) [Mass/Vol] 12.5 g/dL Low 13.0-16.5 [facility] Comment on above: Performed By: #### P SSI #### [facility] [address] [place], [address] IG% 0.400 Normal 0.0-0.9 [facility] Comment on above: Result Comment: IG% - Immature Granulocytes (promyelocytes, myelocytes and metamyelocytes) > 1% indicates that a LEFT SHIFT is Present. Performed By: #### P SSI #### [facility] [address] [place], [address] Lymphocytes/100 WBC (Bld) 18.9 % Low 19-41 [facility] Comment on above: Performed By: #### P SSI #### [facility] [address] [place], [address] MCH (RBC) [Entitic mass] 28.7 pg Normal 27.0-32.0 [facility] Comment on above: Performed By: #### P SSI #### [facility] [address] [place], [address] MCHC (RBC) [Mass/Vol] 33.2 g/dL Normal 32-36 [facility] Comment on above: Performed By: #### P SSI #### [facility] [address] [place], [address] MCV (RBC) [Entitic vol] 86.4 fL Normal 80-94 [facility] Comment on above: Performed By: #### P SSI #### [facility] [address] [place], [address] Monocytes/100 WBC (Bld) 8.0 % Normal 0-10 [facility] Comment on above: Performed By: #### P SSI #### [facility] [address] [place], [address] Neutrophils/100 WBC (Bld) 68.8 % Normal 47-70 [facility] Comment on above: Performed By: #### P SSI #### [facility] [address] [place], [address] Nucleated RBC (Bld) [#/Vol] 0 10*3/uL Normal 0-5 [facility] Comment on above: Performed By: #### P SSI #### [facility] [address] [place], [address] Platelet mean volume (Bld) [Entitic vol] 9.9 fL Normal 6.2-12.0 [facility] Comment on above: Performed By: #### P SSI #### [facility] [address] [place], [address] Platelets (Bld) [#/Vol] 290 10*3/uL Normal 150-450 [facility] Comment on above: Performed By: #### P SSI #### [facility] [address] [place], [address] RBC (Bld) [#/Vol] 4.35 10*6/uL Low 4.6-6.2 [facility] Comment on above: Performed By: #### P SSI #### [facility] [address] [place], [address] RDW SD 40.9 fl Normal 35.1-43.9 [facility] Comment on above: Performed By: #### P SSI #### [facility] [address] [place], [address] WBC (Bld) [#/Vol] 7.6 10*3/uL Normal 4.4-11.0 [facility] Comment on above: Performed By: #### P SSI #### [facility] [address] [place], [address] Comprehensive Metabolic Prof ilon 11-28-2024 Albumin [Mass/Vol] 3.9 g/dL Normal 3.2-5.0 [facility] Comment on above: Performed By: #### P SSI #### [facility] [address] [place], [address] Albumin/Globulin [Mass ratio] 1.3 {ratio} Normal 0.9-2.4 [facility] Comment on above: Performed By: #### P SSI #### [facility] [address] [place], [address] ALK P 57 U/L Normal 45-117 [facility] Comment on above: Performed By: #### P SSI #### [facility] [address] [place], [address] ALT [Catalytic activity/Vol] 25 U/L Normal 16-61 [facility] Comment on above: Performed By: #### P SSI #### [facility] [address] [place], [address] AST [Catalytic activity/Vol] 15 U/L Normal 15-37 [facility] Comment on above: Performed By: #### P SSI #### [facility] [address] [place], [address] Bilirubin [Mass/Vol] 0.30 mg/dL Normal 0.20-1.00 [facility] Comment on above: Result Comment: For patients on eltrombopag therapy, use of Dimension [place] TBIL is not recommended. Performed By: #### P SSI #### [facility] [address] [place], [address] BUN/CRE 10.9 RATIO Normal 10-20 [facility] Comment on above: Performed By: #### P SSI #### [facility] [address] [place], [address] CA,Total 8.9 mg/dL Normal 8.5-10.1 [facility] Comment on above: Performed By: #### P SSI #### [facility] [address] [place], [address] Chloride [Moles/Vol] 106 mmol/L Normal 98-107 [facility] Comment on above: Performed By: #### P SSI #### [facility] [address] [place], [address] CO2 [Moles/Vol] 25.0 mmol/L Normal 21.0-32.0 [facility] Comment on above: Performed By: #### P SSI #### [facility] [address] [place], [address] Creatinine [Mass/Vol] 1.56 mg/dL High 0.70-1.30 [facility] Comment on above: Result Comment: The validity of the calculated GFR GFRAA in patients over 70 years has not been determined. Clinical correlation is essential. Performed By: #### P SSI #### [facility] [address] [place], [address] EST GFR - AA 57 mL/min Low >60 [facility] Comment on above: Result Comment: Afri can Macedonian GFR Calc Performed By: #### P SSI #### [facility] [address] [place], [address] GAP 7 Normal 5-15 [facility] Comment on above: Performed By: #### P SSI #### [facility] [address] [place], [address] GFR/1.73 sq M.predicted among non-blacks MDRD (S/P/Bld) [Vol rate/Area] 47 mL/min/{1.73_m2} Low >60 [facility] Comment on above: Result Comment: Non- GFR Calc Performed By: #### P SSI #### [facility] [address] [place], [address] Globulin (S) [Mass/Vol] 3.1 g/dL Normal 2.2-4.2 [facility] Comment on above: Performed By: #### P SSI #### [facility] [address] [place], [address] Glucose [Mass/Vol] 101 mg/dL Normal 74-106 [facility] Comment on above: Result Comment: Fast ing Glucose result from 100 to 125 mg/dL suggests IMPAIRED HOMEOSTASIS per A.D.A. criteria. Performed By: #### P SSI #### [facility] [address] [place], [address] Potassium [Moles/Vol] 4.2 mmol/L Normal 3.5-5.1 [facility] Comment on above: Performed By: #### P SSI #### [facility] [address] [place], [address] Sodium [Moles/Vol] 137 mmol/L Normal 136-145 [facility] Comment on above: Performed By: #### P SSI #### [facility] [address] [place], [address] T PROT 7.0 g/dL Normal 6.4-8.2 [facility] Comment on above: Performed By: #### P SSI #### [facility] [address] [place], [address] Urea nitrogen [Mass/Vol] 17 mg/dL Normal 7-18 [facility] Comment on above: Performed By: #### P SSI #### [facility] [address] [place], [address] Hepatitis B Surface Antibody on 11-28-2024 HEP B Surf Ab Reactive Normal [facility] Comment on above: Order Comment: Reaso n for Exam: MASLD Result Comment: Non Reactive: Inconsistent with immunity less than <10 mIU/mL Reactive: Consistent with immunity greater than or equal to 10 mIU/mL Performed By: #### P SSI #### [facility] [address] [place], [place], [address] Hepatitis B Surface Antigeno n 11-28-2024 HEP B Surf Ag Non-Reactive Normal Nonreactive [facility] Comment on above: Order Comment: Reaso n for Exam: MASLD Performed By: #### P SSI #### [facility] [address] [place], [address] Hepatitis C Antibodyon 11-28 Hepatitis C AB Non-Reactive Normal Nonreactive [facility] Comment on above: Order Comment: Reaso n for Exam: MASLD Result Comment: Non Reactive: < 0.8 Equivocal: >/= 0.8 to < 1.0 Reactive: >/= 1.0 The CDC requires that a reactive/equivocal HCV antibody result be sent out for confirmation. HCV Quant by PCR testing. Performed By: #### L 3890.6300, L3100.0300, L3100.0460, L3410.9998, L100.0100, L500.4050, L3890.6100, L3890.6200 ####[facility] [address] [place], [place], [address] Gastroenterology Visit Repor ton 11-27-2024 Gastroenterology Visit Report [facility] Gastroenterology [address] [place] [address] OFFICE VISIT Date of Service: 11/27/24 MR#: [id number] Acct: [id number] Name: DAR ROSE Rep #: [id number] : 1955 Provider: AKOSUA medina Age/Sex: 69/M Location: [facility] Status: Signed Intake Vital Signs 06/20/23 11:41 11/20/24 12:55 11/27/24 08:38 Height 5 ft 10.08 in 5 ft 10 in 5 ft 10 in Weight: 187 lb 4 oz BMI 26.9 BP 154/81 H Respiration 18 Pulse 64 Pulse Oximetry (%) 98 Oxygen Delivery Method room air Intake Visit Reasons: 3 M FU Chief Complaint: RUQ pain Bi Report Developer Required: No Accompanied by: Is patient in [...] Here for results and plan going forward. [facility] Medical History Wears glasses Cardiology follow-up encounter [...] stools, V (more content not included)... Normal [facility] [place] Mode ([id number]) 1955 M Date Time Provider Department 11/21/24 [...] management [Z (more content not included)... Normal [facility] HbA1c (Bld)on 11-21-2024 Average glucose Estimated from glycated hemoglobin (Bld) [Mass/Vol] 117 mg/dL Normal [facility] Comment on above: Order Comment: Speci men Type: BLOOD SPECIMENOrdering Facility: [facility] Address: [address] [place] [address] Result Comment: eAG: (Estimated average glucose) is a calculated value from HgbA1c and is outside dealer sales representative of the average blood glucose level in the last 2-3 month period. Performed By: #### 5 5454-3 ####[facility] LABCLIA [id number] [place] [address] [place] HbA1c (Bld) [Mass fraction] 5.7 % High 4.3-5.6 [facility] Comment on above: Order Comment: Morena edwards Type: BLOOD SPECIMENOrdering Facility: [facility] Address: [address] [place] [address] Result Comment: Amer ican Diabetes Association guidelines indicate that patients with HgbA1c in the range 5.7-6.4% are at increased risk for development of diabetes, and intervention by lifestyle modification may be beneficial. HgbA1c greater or equal to 6.5% is considered diagnostic of diabetes. Performed By: #### 5 5454-3 ####[facility] LABCLIA [id number] [place] [address] [place] Bedside Glucoseon 11-20-2024 FINGERSTICK GLU 105 mg/dL Normal 74-106 [facility] Comment on above: Result Comment: OMID KATE OF PATIENT CARE PER NURSING PROTOCOL Performed By: #### L 501.080 #### [facility] [address] [place], [address] EGD Reporton 11-20-2024 EGD Report [facility] Medical Records Department [address] [place] [address] EGD Report MR#: [id number] Acct: [id number] Name: DAR ROSE Rep #: [id number] : 1955 69 From: Dany Abdi DO PCP: Dr. Cruz Prado MD Status:[facility] Patient Name: Dar Rose Procedure Date: 11/20/2024 [...] fine-needle aspiration Procedure Code(s): --- Professional --- 06834, Esophagogastroduodeno scopy, flexible, transoral; with biopsy, single or multiple CPT copyright 2021 [employer]. All rights reserved. The codes documented in this report are preliminary and upon custom shop worker review may be revised to meet current compliance requirements. Dany Abdi DO 11/20/2024 2:03:34 PM This report has been signed electronically. Number of Addenda: 0 Note Initiated On: 11/20/2024 1:35 PM 11/20/24 140 Date Dany Davila Signature: Date (if indicated) CC: Dr. Cruz Prado MD; Dany Abdi DO Date Dictated: 11/20/24 1335 Date Transcribed: Associate Professor Of Library Media: BENJA Signed [facility] MR/POSTOP.ANE 11-20-2024 MR/POSTOP.[facility] Medical Records Department [address] [place] [address] Anesthesia Postop Eval I 11/20/241405 MR#: [id number] Acct: [id number] Name: DAR ROSE Rep #: [id number] : 1955 69 From: Payton José PCP: Dr. Cruz Prado MD Status:REG SD Y Race: C Location: [place] [address] Anesthesia: Postop Eval I Current Vital Signs [...] Date Payton Chapman Signature: Date CC: Signed [facility] MR/[id number] 11-20-2024 MR/POSTOPAN2 [facility] Medical Records Department [address] [place] [address] Anesthesia Postop Eval II 11/20/241941 MR#: [id number] Acct: [id number] Name: DAR ROSE Rep #: [id number] : 1955 69 From: Addison Ellis MD PCP: Dr. Cruz Prado MD Status:[facility] Y Race: C Location: EN Anesthesia Postop [...] MD Cosigner Signature: Date CC: Signed Normal [facility] Special Stain Group Ion 11-01 Special Stain Group I --- -------- Patient Age/Sex Location Account Attending Physician -------- DAR ROSE 69/M EN [id number] Dany Abdi DO -------- Specimen: [id number] Received: 11/20/24 Status: JOHANA Dahl Num: [id number] Spec Type: EGD BIOPSY Subm Dr: Dany [...] submitted in one cassette. BW.mr 11/21/2024 TC:3 [facility]:[id number] -------- Patient Age/Sex Location Account Attending Physician -------- DAR ROSE 69/M EN [id number] Dany Abdi DO -------- Signed (signature on file) Dr. David Ruiz MD 11/22/24 1155 -------- Normal [facility] Comment on above: Performed By: #### P SSI #### [facility] Laboratory [address] [place], [address] MR/PAT.ANEon 11-15-2024 MR/PAT.ANE [facility] Medical Records Department [address] [place] [address] PAT - Anesthesia 11/15/24 1151 MR#: [id number] Acct: [id number] Name: DAR ROSE Rep #: [id number] : 1955 69 From: Tony Lilly MD PCP: Dr. Cruz Prado MD Status:PRE SD Y Race: C Location: EN Pre-Assessment Diagnosis/Proposed Procedure Planned Operative Procedure(s): EGD Anesthesia History Anesthesia History - hand glove cleaner: Anesthesia History - hand glove cleaner Hx Hospitalization No 11/15/24 10:33 Any Problems [...] take am of surgery PONV PONV - hand glove cleaner: PONV - hand glove cleaner Female No 11/15/24 10:33 HX of Motion [...] 06/20/23 11:41 Respiratory Assessment Respiratory Assessment - hand glove cleaner: Respiratory Tract Infection Hx - hand glove cleaner Hx Respiratory Tract Infection No 11/15/24 10:33 STOP Sleep Apnea STOP Sleep Apnea - hand glove cleaner: STOP Sleep Apnea - hand glove cleaner Hx Hypertension Yes: CONTROLLED WITH MEDS 11/15/24 [...] 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 History - hand glove cleaner: Tobacco Use History - hand glove cleaner Tobacco Use Smoking Status Former smoker 11/15/24 10:33 Hx Tobacco Use No 11/15/24 10:33 Years Smoking Packs Smoked per Day Smoking Cessation Date was No - quit smoking greater 11/15/24 10:33 within the last 15 years than 15 years ago Hx Smoking Cessation Date 11/15/24 10:33 Hx Smoking Cessation Counseling Hematologic Medial History Hematologic Hx - hand glove cleaner: Hematologic Medical Hx - manager documentation Hx of Blood Transfusion No 11/15/24 10:33 [...] /Reproductio n History /Reproductiv e History - hand glove cleaner: /Reproductiv e Hx- hand glove cleaner Hx Now Gestational Age (in weeks): EDC: Hx Hx Para Hx Section [facility] Medical History (Updated 11/15/24 @ 10:40 by [...] tabs 09/06/24 (more content not included)... Normal [facility] MRI Abd WITH and W/O Contras ton 11-13-2024 MRI Abd WITH and W/O Contrast [facility] Imaging Services [address] [place] [address]271 MRI Abd WITH and W/O Contrast MR#: [id number] Acct: [id number] Name: DAR ROSE Rep #: [id number] : 1955 M 69 From: Reuben brewster MD PCP: Dr. Cruz Prado MD Status: REG CLI Study: MRI Abd WITH and W/O Contrast Date of Exam: Exam# [id number] Ordering Dr: Irma Brown LEATHER SKINNER- C [id number] MRI Abdomen w/ and w/out contrast 11/13/2024 [...] CC: AKOSUA Brown; Dr. Cruz Prado MD Associate Professor Of Library Media: Signed [facility] 11-07-2024 [facility] Telephone (FAMPWS) DAR ROSE ([id number]) 1955 M Date Time Provider Department 11/07/24 CRUZ PRADO During your visit today, we recorded the following information about you: Mary Beltran, RN 11/07/2024 1:32 PM Signed [facility] reports the fax sent to them this morning needs resent, only received 2 pages out of 19, and the 2 they have are blurred and difficult to read. Re-faxed recent ov notes, demographics, consult order, lab results to [facility]- attn: Dr. Mireles, to fax # [phone] Allergies As of Date: 11/07/2024 Noted Allergy [...] cyst [K76.89] more content not included)... Normal [facility] ([id number]) 1955 Date Time Provider Department 10/17/24 [facility] your visit today, we recorded [...] contracture [M72.0] (more content not included)... [facility] ([id number]) 1955 M Date Time Provider Department 10/17/24 CRUZ PRADO [facility] During your visit today, we recorded the following information about you: Patricia Johnson LPN 10/18/2024 11:30 AM Addendum PA [...] Fully Assessed Reason for Visit: Insurance Authorization [[id number]] Visit Diagnoses:Controlled type 2 diabetes mellitus with [...] torso exclud (more content not included)... Normal [facility] ABD Limited w/ Elastographyo n 10-15-2024 ABD Limited w/ Elastography [facility] Imaging Services [address] [place] [id number] ABD Limited w/ Elastography MR#: [id number] Acct: [id number] Name: DAR ROSE Rep #: [id number] : 1955 M 69 From: Murphy scott MD PCP: Dr. Cruz Prado MD Status: [facility] CL Study: ABD Limited w/ Elastography Date of Exam: 09/30 04/23 Exam# [id number] Ordering Dr: Irma Brown LEATHER SKINNER- Sukumar [id number] STUDY: ABDOMINAL ULTRASOUND - RIGHT UPPER QUADRANT; ELASTOGRAPHY REASON FOR VISIT: Male, 69 years old. Steatosis. Right upper quadrant pain. TECHNIQUE: Ultrasound evaluation of the right upper quadrant was performed with real-time and static almanza-scale imaging. Point quantification shear wave elastography was performed (LaunchTrack). TECHNICAL QUALITY: Adequate. COMPARISON: None. FINDINGS: Liver: [...] CC: AKOSUA Brown; Dr. Cruz Prado MD Associate Professor Of Library Media: [facility]FAMPWS[facility] MILTOND[place] Coello ([id number]) 1955 M Date Time Provider Department 10/08/24 [facility] During your visit today, we recorded [...] was made; and he checked into the [employer] machine on 07/12/12 and that Anette did [...] diabetes reji (more content not included)... Normal [facility]NPN Telephone (FAMPWS) DAR ROSE ([id number]) 1955 Date Time Provider Department 10/08/24 CRUZ [...] instructions. Patient would like this to go [facility] pharmacy. Removed [facility] [place]. GALLO Leung Jeffrey A, MD 10/08/2024 11:11 [...] [H25.13]05/30/2015 O (more content not included)... Normal [facility] Gastroenterology Visit Repor ton 09-24-2024 Gastroenterology Visit Report [facility] Gastroenterology [address] [place] [address] OFFICE VISIT Date of Service: 09/24/24 MR#: [id number] Acct: [id number] Name: DAR ROSE Rep #: [id number] : 1955 Provider: AKOSUA medina Age/Sex: 68/M [place] [facility] Status: Signed Intake Vital Signs 06/20/23 11:41 09/24/24 08:36 Height 5 ft 10.08 in Weight: 200 lb 6 oz BP 130/85 H Respiration 16 Pulse 63 Pulse Oximetry (%) 97 Oxygen Delivery Method room air Intake Visit Reasons: Right side pain Chief Complaint: RUQ pain Bi Report Developer Required: No Is patient in pain?: Yes [...] and EGD a few years ago at [facility] Medical History Anxiety Back problem BPH (benign [...] of any NS (more content not included)... [facility] Telephone (INTMWS) DAR ROSE ([id number]) 1955 M Date Time Provider Department 09/21/24 CRUZ PRADO INTMWS During your visit today, we recorded the following information about you: Patricia Johnson LPN 09/21/2024 3:08 PM Signed ELECTRONIC PA REC'D AND COMPLETED FOR Geri Francisco MA 09/24/2024 3:23 PM Signed Rx needs completed through rxben Completed through portal Prior Auth (EOC) ID: [id number] MemberID: [id number] [email or web address] _=[email or web address] [email or web address]_so- urce=rxbenefits.comAN Dutm_medium=referralA NDutm_campaign=prior+ auth+Geri Barr [...] (supraventricular tachy (more content not included)... Normal [facility] 09-11-2024 [facility] Telephone (FAMPWS) DAR ROSE ([id number]) 1955 M Date Time Provider Department 09/11/24 MILIND DENIS [facility] During your visit today, we recorded the [...] [Z01.00, E11 (more content not included)... Normal [facility] Hepatitis B Surf AB - EMPon 09-07-2024 HEP B Surf Ab Reactive Normal [facility] Comment on above: Result Comment: Non Reactive: Inconsistent with immunity less than <10 mIU/mL Reactive: Consistent with immunity greater than or equal to 10 mIU/mL Performed By: #### L [phone] ####[facility] [id number] [place], [address] [facility] Telephone ([facility]) DAR ROSE ([id number]) 1955 M Date Time Provider Department 08/20/24 CRUZ PRADO [facility] During your visit today, we recorded the [...] dysplasia [K2 (more content not included)... [facility] ([id number]) 1955 M Date Time Provider Department 08/20/24 CRUZ PRADO During your visit today, we recorded the following information about you: Bebe Hines RN 08/20/2024 1:49 PM Signed Patient calling to request referral to GASTRO be faxed to [facility]. Order from 01/31/24, demographics and OV [...] [H35.00] 03/19 (more content not included)... Normal [facility] US SCROTUM AND CONTENTSon US SCROTUM AND [...] 2. Remainder of scrotal contents are normal. Associate Professor Of Library Media: LARRY Transcribe Date/Time: Oct 27 2023 9:12A Dictated by : PAYTON STAPLES MD This examination was interpreted and the report reviewed and electronically signed by: PAYTON STAPLES MD on Oct 27 2023 9:14AM EST [id number] Normal [facility] COVID NAAT, UPPER RESPIRATOR Y, ROUTINEon 08-06-2023 SARS-CoV-2 (COVID-19) RNA CHRISTA+probe Ql (Resp) Not detected See comment [facility] ROUTINE FLU A/B + RSVon 10-0 FLUAV RNA CHRISTA+probe Ql (Unsp spec) Not detected Not Detected [facility] FLUBV RNA CHRISTA+probe Ql (Unsp spec) Not detected Not Detected [facility] RSV A RNA CHRISTA+probe Ql (Unsp spec) Not detected Not Detected [facility] XR HIP BILATERAL 5V PEL/AP/L AT EACH HIPon 01-26-2023 IMPRESSION: No acute osseous abnormality. Mild RIGHT hip osteoarthritis. Associate Professor Of Library Media: [facility] Transcribe Date/Time: Jan 26 2023 11:48A Dictated by : TUSHAR ESTRADA DO This examination was interpreted and the report reviewed and electronically signed by: TUSHAR ESTRADA DO on Jan 26 2023 11:51AM [facility] DIVISION OF RADIOLOGY * * *Final Report* [...] within normal limits. DIVISION OF RADIOLOGY Provider, [facility] - 01/26/2023 * * *Final Report* [...] acute osseous abnormality. Mild RIGHT hip osteoarthritis. Associate Professor Of Library Media: [facility] Transcribe Date/Time: Jan 26 2023 11:48A Dictated by : TUSHAR ESTRADA DO This examination was interpreted and the report reviewed and electronically signed by: TUSHAR ESTRADA DO on Jan 26 2023 11:51AM EST [facility] XR HIP BILATERAL 5V PEL/AP/L AT EACH HIPOrdered By: Ccf Provider on 01-26-2023 [facility] XR HIP BILATERAL 5V PEL/AP/L AT EACH HIPon 01-21-2023 Radiology Study observation (narrative) [facility] XR Lumbar spine AP and Later al and obliqueon 12-14-2022 IMPRESSION: Lower lumbar degenerative disc disease Associate Professor Of Library Media: LARRY Transcribe Date/Time: Dec 14 2022 1:28P [...] maintained. DIVISION OF RADIOLOGY Provider, Palak Arguello [facility] - 12/14/2022 * * *Final Report* [...] IMPRESSION IMPRESSION: Lower lumbar degenerative disc disease Associate Professor Of Library Media: [facility] Transcribe Date/Time: Dec 14 2022 1:28P Dictated by : CIRA CÁRDENAS MD This examination was interpreted and the report reviewed and electronically signed by: CIRA CÁRDENAS MD on Dec 14 2022 1:28PM EST [facility] XR Lumbar spine AP and Later al and obliqueOrdered By: Ccf Provider on 12-14-2022 [facility] XR Lumbar spine AP and Later al and obliqueon 12-09-2022 Radiology Study observation (narrative) [facility] GLUCOSE, BLOOD (POC)on 06-01 Glucose [Mass/Vol] 80 mg/dL 74 - 99 mg/dL [facility] Glucose [Mass/Vol] 92 mg/dL 74 - 99 mg/dL [facility] No Panel Informationon 06-01 [facility] XR Abdomen Supine and Uprigh ton 08-03-2021 IMPRESSION: Nonobstructive bowel gas pattern. Large colonic stool burden, which may be seen with constipation. Associate Professor Of Library Media: [facility] Transcribe Date/Time: Aug 03 2021 4:52P Dictated by : COLE ESTRADA MD This examination was interpreted and the report reviewed and electronically signed by: COLE ESTRADA MD on Aug 03 2021 4:53PM [facility] DIVISION OF RADIOLOGY * * *Final Report* [...] spine. DIVISION OF RADIOLOGY Provider, Palak Arguello [facility] - 08/03/2021 * * *Final Report* [...] burden, which may be seen with constipation. Associate Professor Of Library Media: LARRY Transcribe Date/Time: Aug 03 2021 4:52P Dictated by : COLE ESTRADA MD This examination was interpreted and the report reviewed and electronically signed by: COLE ESTRADA MD on Aug 03 2021 4:53PM EST [facility] Radiology Study observation (narrative) [facility] XR Abdomen Supine and Uprigh tOrdered By: Ccf Provider on 08-03-2021 [facility] Coronavirus 2019on SARS-CoV-2 (COVID-19) RNA CHRISTA+probe Ql (Unsp spec) UPPER RESPIRATORY TRACT SWAB Normal [facility] Comment on above: Performed By: #### C OVID #### [facility] [address] [place] [address] SARS-CoV-2 (COVID-19) RNA CHRISTA+probe Ql (Unsp spec) Negative for COVID19 (SARS CoV2) by RT-PCR or equivalent method. Normal Negative for COVID19 (SARS CoV2) by RT-PCR or equivalent method. [facility] Comment on above: Result Comment: This test was developed and its performance characteristics determined by [facility]'s [facility] [place]. This test has been authorized by FDA under an Emergency Use Authorization (EUA). This test has been validated in accordance with the FDA's Guidance Document Policy for Diagnostics Testing in Laboratories Certified to Perform High Complexity Testing under CLIA prior to Emergency use Authorization for Coronavirus Disease 2019 during the Public Health Emergency issued on December 29, 2019. Test performed by [facility], [facility] [place], [address], [place] [address]. Performed By: #### C OVID #### [facility] [address] [id number] ED NOTEon 07-01-2021 ED NOTE HNO ID: [id number] Author: Taylor Segovia, Medic Service: ? Author Type: Line Lead and Salesperson Yard Goods Type: ED Notes Filed: 07/01/2021 11:18 AM Note Text: Swab walked down to lab [facility] ED PROV NOTEon 07-01-2021 ED PROV NOTE HNO ID: [id number] Author: Julissa Zapata PA-C Service: ? Author Type: Physician Foxpro Developer Type: ED Provider Notes Filed: 07/01/2021 11:39 AM Note Text: ED Provider Note Patient Name: Dra Rose SERVICE DATE: 07/01/21 History Patient presents [...] sclerosis, bilateral 09/09/2017 - SVT (supraventricular tachycardia) ([facility]) 05/20/2021 Treated with Ablation: 2013 - Type 2 diabetes mellitus with retinopathy, without long-term current use of insulin ([facility]) 09/09/2017 - Uncontrolled type 2 diabetes mellitus with stage 3 chronic kidney disease, without long-term current use of insulin ([facility]) 01/30/2018 - Vitreous syneresis of both eyes [...] There is normal jaw occlusion. Mouth/Throat: Lips: [place]. Eyes: Extraocular Movements: Extraocular movements intact. Pupils: Pupils are equal, round, an (more content not included)... Normal [facility] XR Abdomen GE 3 Views AP and Oblique and Coneon 10-20-2020 IMPRESSION: NO ACUTE ABDOMINAL PATHOLOGY VISUALIZED Associate Professor Of Library Media: LARRY Transcribe Date/Time: Oct 20 2020 8:42A Dictated by : YESSICA OVERTON MD This examination was interpreted and the report reviewed and electronically signed by: YESSICA OVERTON MD on Oct 20 2020 8:45AM [facility] DIVISION OF RADIOLOGY * * *Final Report* [...] abnormalities. DIVISION OF RADIOLOGY Provider, So Saundra [facility] - 10/20/2020 * * *Final Report* [...] IMPRESSION IMPRESSION: NO ACUTE ABDOMINAL PATHOLOGY VISUALIZED Associate Professor Of Library Media: [facility] Transcribe Date/Time: Oct 20 2020 8:42A Dictated by : YESSICA OVERTON MD This examination was interpreted and the report reviewed and electronically signed by: YESSICA OVERTON MD on Oct 20 2020 8:45AM EST [facility] XR Abdomen GE 3 Views AP and Oblique and ConeOrdered By: Ccf Provider on 10-20-2020 [facility] XR Abdomen GE 3 Views AP and Oblique and Coneon 10-18-2020 Radiology Study observation (narrative) [facility] Coronavirus 2019on 0 SARS-CoV-2 (COVID-19) RNA CHRISTA+probe Ql (Unsp spec) UPPER RESPIRATORY TRACT SWAB Normal [facility] Comment on above: Performed By: #### C OVID #### [facility] [address] [place], [place] [address] SARS-CoV-2 (COVID-19) RNA CHRISTA+probe Ql (Unsp spec) Negative Normal [facility] Comment on above: Result Comment: This test was developed and its performance characteristics determined by [facility]'s [facility] [place]. This test has been authorized by FDA [...] 2019. Performed By: #### C OVID #### [facility] [address] [address] [place], [place] [address] ED NOTEon 09-10-2020 ED NOTE HNO ID: [id number] Author: Filiberto (Rn) PATEL Theodore Service: ? Author Type: Registered Nurse Type: ED Notes Filed: 09/10/2020 10:01 AM Note Text: Discharge instructions given to patient, pt aware to self isolate until COVID resulted. Pt left ED in no acute distress, aware to return if s/s worsen. 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 He states he was instructed to undergo Covid testing. He denies any chest pain shortness of breath, leg swelling, history of DVT/PE. PAST MEDICAL HISTORY Diagnosis Date - Abdominal pain - Arrhythmia - BPH (benign prostatic hyperplasia) - Depression - Diabetes mellitus type II, uncontrolled ([facility]) 08/31/2008 - Elevated PSA 10/04/2018 01/17/18: PSA 4.63 10/02/18 PSA 4.49 - Herniated lumbar intervertebral disc - Hypertension - Rotator cuff tear, left - RUQ pain - Uncontrolled type 2 diabetes mellitus with stage 3 chronic kidney disease, without long-term current use of insulin ([facility]) 01/30/2018 PAST SURGICAL HISTORY Procedure Laterality Date [...] unspecified headache type COVID-19 test performed per [facility] [place] policy for suspected COVID community exposure. MDM / Disposition / Plan MDM Chart review significant for outpatient family medicine visit for gastroenteritis on August 12, 2020 Patient is a 64-year-old male who presents ED for concern of Covid. Upon eval (more content not included)... Normal [facility] Basic Panelon 02-03-2019 Creatinine [Mass/Vol] 1.42 mg/dL High 0.67-1.17 [facility] Comment on above: Performed By: #### P 8 #### [facility] [address] [place], [place] [address] Anion gap [Moles/Vol] 8 mmol/L Normal 8-16 [facility] Comment on above: Performed By: #### P 8 #### [facility] [address] [place], [place] [address] Calcium [Mass/Vol] 8.0 mg/dL Low 8.5-10.[address] [facility] Comment on above: Performed By: #### P 8 #### [facility] [address] [place], [place] [address] CO2 [Moles/Vol] 27 mmol/L Normal 21-32 [facility] Comment on above: Performed By: #### P 8 #### [facility] [address] [place], [place] [address] Glucose [Mass/Vol] 112 mg/dL High 70-[address] [facility] Comment on above: Performed By: #### P 8 #### [facility] [address] [place], [place] [address] Urea nitrogen [Mass/Vol] 20 mg/dL High 7-[address] [facility] Comment on above: Performed By: #### P 8 #### [facility] [address] [place], [place] [address] Chloride [Moles/Vol] 106 mmol/L Normal 98-107 [facility] Comment on above: Performed By: #### P 8 #### [facility] [address] [place] [address] Potassium [Moles/Vol] 4.3 mmol/L Normal 3.5-5.1 [facility] Comment on above: Performed By: #### P 8 #### [facility] [address] [place], [place] [address] Sodium [Moles/Vol] 137 mmol/L Normal 136-[address] [facility] Comment on above: Performed By: #### P 8 #### [facility] [address] [place] [address] Glucose Meteron 02-03-2019 Glucose [Mass/Vol] 94 mg/dL Normal 70-[address] [facility] Comment on above: Result Comment: PATEL SWEENEY Performed By: #### G LMET #### [facility] [address] [address] Hemogramon 02-03-2019 Erythrocyte distribution width (RBC) [Ratio] 13.6 % Normal 11.6-14.[address] [facility] Comment on above: Performed By: #### C BC1 #### [facility] [address] [address] Hematocrit (Bld) [Volume fraction] 25.6 % Low 40.1-51.[address] [facility] Comment on above: Performed By: #### C BC1 #### [facility] [address] [address] Hemoglobin (Bld) [Mass/Vol] 7.8 g/dL Low 13.7-17.[address] [facility] Comment on above: Performed By: #### C BC1 #### [facility] [address] [address] MCH (RBC) [Entitic mass] 24.9 pg Low 25.7-32.[address] [facility] Comment on above: Performed By: #### C BC1 #### [facility] [address] [address] MCHC (RBC) [Mass/Vol] 30.5 % Low 32.3-36.5 [facility] Comment on above: Performed By: #### C BC1 #### [facility] [address] [place], [place] [address] MCV (RBC) [Entitic vol] 81.8 fL Low 83.2-95.[address] [facility] Comment on above: Performed By: #### C BC1 #### [facility] [address] [place], [place] [address] Platelet mean volume (Bld) [Entitic vol] 10.1 fL Normal 8.7-12.0 [facility] Comment on above: Performed By: #### C BC1 #### [facility] [address] [place], [place] [address] Platelets (Bld) [#/Vol] 296 thou/cmm Normal 141-[address] [facility] Comment on above: Performed By: #### C BC1 #### [facility] [address] [place], [place] [address] RBC (Bld) [#/Vol] 3.13 mil/cmm Low 4.63-6.[address] [facility] Comment on above: Performed By: #### C BC1 #### [facility] [address] [address] RDW SD 40.2 fl Normal 36.1-45.[address] [facility] Comment on above: Performed By: #### C BC1 #### [facility] [address] [place], [place] [address] WBC (Bld) [#/Vol] 9.88 thou/cmm High 4.23-9.07 [facility] Comment on above: Performed By: #### C BC1 #### [facility] [address] [place], [place] [address] MDRD GFRon 02-03-2019 GFR/1.73 sq M predicted among non-blacks MDRD (S/P/Bld) [Vol rate/Area] 49.98 mL/min/{1.73_m2} Normal >60mL/min/1.73m [address] [facility] Comment on above: Result Comment: If t he patient is , multiply the result by 1.210. Performed By: #### G FR #### [place] [address] ABO/Rh Confirmationon 2018 ABO group Nom (Bld) A Normal [facility] Comment on above: Performed By: #### A PHILLIP #### [place] [address] RH Type Positive Normal [facility] Comment on above: Performed By: #### A PHILLIP #### [place] [address] Surgical Tissue Examon 02-02 Surgical Tissue Exam Test performed at [place] [address] NAME: DAR ROSE REQUESTING: SAMIRA LAGOS JR, [...] in cross diameter 0.3 to 1.5 cm. [place]cher sections are submitted in formalin in six cassettes. [facility]:felisa KELLEY M.D.,PATHOLOGIST (Electronic signature on file) Signed out: 02/06/2019 12:48 PRINTED: 02/06/2019 Page 1 of [address] [facility] Comment on above: Performed By: #### S URG #### [place] [address] Basic Panelon 01-22-2019 Creatinine [Mass/Vol] 1.52 mg/dL High 0.67-1.17 [facility] Comment on above: Performed By: #### P 8 #### [place] [address] Anion gap [Moles/Vol] 13 mmol/L Normal 8-16 [facility] Comment on above: Performed By: #### P 8 #### [facility] [address] [place], [place] [address] Calcium [Mass/Vol] 9.3 mg/dL Normal 8.5-10.[address] [facility] Comment on above: Performed By: #### P 8 #### [facility] [address] [place], [place] [address] CO2 [Moles/Vol] 26 mmol/L Normal 21-32 [facility] Comment on above: Performed By: #### P 8 #### [facility] [address] [place], [place] [address] Glucose [Mass/Vol] 115 mg/dL High 70-[address] [facility] Comment on above: Performed By: #### P 8 #### [facility] [address] [place], [place] [address] Urea nitrogen [Mass/Vol] 20 mg/dL High 7-[address] [facility] Comment on above: Performed By: #### P 8 #### [facility] [address] [place], [place] [address] Chloride [Moles/Vol] 103 mmol/L Normal 98-107 [facility] Comment on above: Performed By: #### P 8 #### [facility] [address] [place], [place] [address] Potassium [Moles/Vol] 4.6 mmol/L Normal 3.5-5.1 [facility] Comment on above: Performed By: #### P 8 #### [facility] [address] [place], [place] [address] Sodium [Moles/Vol] 137 mmol/L Normal 136-[address] [facility] Comment on above: Performed By: #### P 8 #### [facility] [address] [place], [place] [address] Hemogramon 01-22-2019 Erythrocyte distribution width (RBC) [Ratio] 12.9 % Normal 11.6-14.[address] [facility] Comment on above: Performed By: #### C BC1 #### [facility] [address] [place], [place] [address] Hematocrit (Bld) [Volume fraction] 30.2 % Low 40.1-51.[address] [facility] Comment on above: Performed By: #### C BC1 #### [facility] [address] [place] [address] Hemoglobin (Bld) [Mass/Vol] 9.4 g/dL Low 13.7-17.[address] [facility] Comment on above: Performed By: #### C BC1 #### [facility] [address] [place] [address] MCH (RBC) [Entitic mass] 26.3 pg Normal 25.7-32.[address] [facility] Comment on above: Performed By: #### C BC1 #### [facility] [address] [address] MCHC (RBC) [Mass/Vol] 31.1 % Low 32.3-36.5 [facility] Comment on above: Performed By: #### C BC1 #### [facility] [address] [address] MCV (RBC) [Entitic vol] 84.4 fL Normal 83.2-95.[address] [facility] Comment on above: Performed By: #### C BC1 #### [facility] [address] [address] Platelet mean volume (Bld) [Entitic vol] 10.1 fL Normal 8.7-12.0 [facility] Comment on above: Performed By: #### C BC1 #### [facility] [address] [address] Platelets (Bld) [#/Vol] 395 thou/cmm High 141-[address] [facility] Comment on above: Performed By: #### C BC1 #### [facility] [address] [address] RBC (Bld) [#/Vol] 3.58 mil/cmm Low 4.63-6.[address] [facility] Comment on above: Performed By: #### C BC1 #### [facility] [address] [place] [address] RDW SD 39.5 fl Normal 36.1-45.[address] [facility] Comment on above: Performed By: #### C BC1 #### [facility] [address] [place] [address] WBC (Bld) [#/Vol] 9.81 thou/cmm High 4.23-9.07 [facility] Comment on above: Performed By: #### C BC1 #### [facility] [address] [place] [address] MDRD GFRon 01-22-2019 GFR/1.73 sq M predicted among non-blacks MDRD (S/P/Bld) [Vol rate/Area] 46.21 mL/min/{1.73_m2} Normal >60mL/min/1.73m [address] [facility] Comment on above: Result Comment: If t he patient is , multiply the result by 1.210. Performed By: #### G FR #### [place] [address] Type and Screenon 01-22-2019 ABO group Nom (Bld) A Normal [facility] Comment on above: Performed By: #### T &S #### [place] [address] Comment PAT specimen Normal [facility] Comment on above: Performed By: #### T &S #### [place] [address] RH Type Positive Normal [facility] Comment on above: Performed By: #### T &S #### [place] [address] EGD - THERAPEUTIC, EUS, OR T UBE INTERVENTIONSon 08-21-2018 [facility] Vital Signs Date Time Vital Sign Value Performing Clinician Facility 07-29-2025 14:40-0400 Body height 177.[address] Cruz Prado MD Work Phone: [facility] 07-29-2025 14:40-0400 Body mass index (BMI) [Ratio] 27 kg/m2 Dr. Cruz Prado MD Work Phone: [facility] 07-29-2025 14:40-0400 Body weight 85.[address] Cruz Prado MD Work Phone: [phone] [place] [address] 07-29-2025 14:40-0400 Diastolic blood pressure 78 mm[Hg] Dr. Cruz Prado MD Work Phone: [phone] [place] [address] 07-29-2025 14:40-0400 Heart rate 66 /min Dr. Cruz Prado MD Work Phone: [phone] [place] [address] 07-29-2025 14:40-0400 SaO2% (BldA) [Mass fraction] 97 % Dr. Cruz Prado MD Work Phone: 6(339)268-336032 [place] [address] 07-29-2025 14:40-0400 Systolic blood pressure 130 mm[Hg] Dr. Cruz Prado MD Work Phone: 4(410)324-775732 [place] [address] 05-28-2025 09:07-0400 Body height 177.[address] Cruz Prado MD Work Phone: 6(309)431-344632 [place] [address] 05-28-2025 09:07-0400 Body mass index (BMI) [Ratio] 26.6 kg/m2 Dr. Cruz Prado MD Work Phone: 7(366)578-589932 [place] [address] 05-28-2025 09:07-0400 Body temperature 98.1 [degF] Dr. Cruz Prado MD Work Phone: 0(379)531-598632 [place] [address] 05-28-2025 09:07-0400 Body weight 84.[address] Cruz Prado MD Work Phone: 4(128)158-239632 [place] [address] 05-28-2025 09:07-0400 Diastolic blood pressure 75 mm[Hg] Dr. Cruz Prado MD Work Phone: 0(683)345-927132 [place] [address] 05-28-2025 09:07-0400 Heart rate 69 /min Dr. Cruz Prado MD Work Phone: 5(192)482-684032 [place] [address] 05-28-2025 09:07-0400 Respiratory rate 16 /min Dr. Cruz Prado MD Work Phone: 6(962)870-745832 [place] [address] 05-28-2025 09:07-0400 SaO2% (BldA) [Mass fraction] 95 % Dr. Cruz Prado MD Work Phone: 9(645)796-480077 [place] [address] 05-28-2025 09:07-0400 Systolic blood pressure 118 mm[Hg] Dr. Cruz Prado MD Work Phone: 0(409)496-289232 [place] [address] 04-29-2025 09:03-0400 Body height 177.[address] Cruz Prado MD Work Phone: 0(266)253-962332 [place] [address] 04-29-2025 09:03-0400 Body mass index (BMI) [Ratio] 26.5 kg/m2 Dr. Cruz Prado MD Work Phone: 6(022)125-500232 [place] [address] 04-29-2025 09:03-0400 Body weight 83.[address] Cruz Prado MD Work Phone: 3(554)040-229332 [place] [address] 04-29-2025 09:03-0400 Diastolic blood pressure 81 mm[Hg] Dr. Cruz Prado MD Work Phone: 4(208)392-918677 [place] [address] 04-29-2025 09:03-0400 Heart rate 63 /min Dr. Cruz Prado MD Work Phone: 9(965)592-379632 [place] [address] 04-29-2025 09:03-0400 SaO2% (BldA) [Mass fraction] 98 % Dr. Cruz Prado MD Work Phone: 6(448)033-324577 [place] [address] 04-29-2025 09:03-0400 Systolic blood pressure 145 mm[Hg] Dr. Cruz Prado MD Work Phone: [facility] 04-01-2025 08:14-0400 Body mass index (BMI) [Ratio] 27.81 kg/m2 Loren Vallecillo APRN.OFFICE ADMIN Work Phone: [facility] 04-01-2025 08:14-0400 Body temperature 97.2 [degF] Loren Vallecillo APRN.OFFICE ADMIN Work Phone: [facility] 04-01-2025 08:14-0400 Body weight 84.2 kg Loren Vallecillo APRN.OFFICE ADMIN Work Phone: [facility] 04-01-2025 08:14-0400 Diastolic blood pressure 78 mm[Hg] Loren Vallecillo APRN.OFFICE ADMIN Work Phone: [facility] 04-01-2025 08:14-0400 Heart rate 60 /min Loren Vallecillo APRN.OFFICE ADMIN Work Phone: [facility] 04-01-2025 08:14-0400 Respiratory rate 16 /min Loren Vallecillo APRN.OFFICE ADMIN Work Phone: [facility] 04-01-2025 08:14-0400 SaO2% (BldA) [Mass fraction] 98 % Loren Vallecillo APRN.OFFICE ADMIN Work Phone: [facility] 04-01-2025 08:14-0400 Systolic blood pressure 122 mm[Hg] Loren Vallecillo APRN.OFFICE ADMIN Work Phone: [facility] 02-18-2025 08:47-0400 Body mass index (BMI) [Ratio] 27.48 kg/m2 Asim Denis APRN.OFFICE ADMIN Work Phone: [facility] 02-18-2025 08:47-0400 Body temperature 96.91 [degF] Asim Denis APRN.OFFICE ADMIN Work Phone: [facility] 02-18-2025 08:47-0400 Body weight 83.2 kg Asim Denis APRN.OFFICE ADMIN Work Phone: [facility] 02-18-2025 08:47-0400 Diastolic blood pressure 60 mm[Hg] Asim Denis APRN.OFFICE ADMIN Work Phone: [facility] 02-18-2025 08:47-0400 Heart rate 78 /min Asim Denis APRN.OFFICE ADMIN Work Phone: [facility] 02-18-2025 08:47-0400 Respiratory rate 16 /min Asim Denis APRN.OFFICE ADMIN Work Phone: [facility] 02-18-2025 08:47-0400 SaO2% (BldA) [Mass fraction] 97 % Asim Denis APRN.OFFICE ADMIN Work Phone: [facility] 02-18-2025 08:47-0400 Systolic blood pressure 102 mm[Hg] Asim Denis APRN.OFFICE ADMIN Work Phone: [facility] 01-28-2025 09:45-0400 Body mass index (BMI) [Ratio] 26.2 kg/m2 Dr. Cruz Prado MD Work Phone: [facility] 01-28-2025 09:45-0400 Body weight 82.[address] Cruz Prado MD Work Phone: [facility] 01-28-2025 09:45-0400 Diastolic blood pressure 76 mm[Hg] Dr. Cruz Prado MD Work Phone: [facility] 01-28-2025 09:45-0400 Heart rate 55 /min Dr. Cruz Prado MD Work Phone: [facility] 01-28-2025 09:45-0400 SaO2% (BldA) [Mass fraction] 98 % Dr. Cruz Prado MD Work Phone: [facility] 01-28-2025 09:45-0400 Systolic blood pressure 132 mm[Hg] Dr. Cruz Prado MD Work Phone: [facility] 01-16-2025 07:57-0400 Body height 174 cm Cruz Prado MD Work Phone: [facility] 01-16-2025 07:57-0400 Body mass index (BMI) [Ratio] 26.82 kg/m2 Cruz Prado MD Work Phone: [facility] 01-16-2025 07:57-0400 Body weight 81.19 kg Cruz Prado MD Work Phone: [facility] 01-16-2025 07:57-0400 Diastolic blood pressure 70 mm[Hg] Cruz Prado MD Work Phone: [facility] 01-16-2025 07:57-0400 Heart rate 72 /min Cruz Prado MD Work Phone: [facility] 01-16-2025 07:57-0400 Respiratory rate 16 /min Cruz Prado MD Work Phone: [facility] 01-16-2025 07:57-0400 Systolic blood pressure 118 mm[Hg] Cruz Prado MD Work Phone: [facility] 12-12-2024 08:15-0500 Body mass index (BMI) [Ratio] 27.32 kg/m2 Jeffery Clutter PA-C Work Phone: [facility] 12-12-2024 08:15-0500 Body temperature 97 [degF] Jeffery Clutter PA-C Work Phone: [facility] 12-12-2024 08:15-0500 Body weight 83.3 kg Jeffery Clutter PA-C Work Phone: [facility] 12-12-2024 08:15-0500 Diastolic blood pressure 75 mm[Hg] Jeffery Clutter PA-C Work Phone: [facility] 12-12-2024 08:15-0500 Heart rate 69 /min Jeffery Clutter PA-C Work Phone: [facility] 12-12-2024 08:15-0500 Respiratory rate 18 /min Jeffery Clutter PA-C Work Phone: [facility] 12-12-2024 08:15-0500 SaO2% (BldA) [Mass fraction] 99 % Jeffery Clutter PA-C Work Phone: [facility] 12-12-2024 08:15-0500 Systolic blood pressure 148 mm[Hg] Jeffery Clutter PA-C Work Phone: [facility] 07-12-2024 10:24-0400 Diastolic blood pressure 80 mm[Hg] Anette Arreola PA-C Work Phone: [facility] Comment on above: average with machine 07-12-2024 10:24-0400 Heart rate 75 /min Anette Arreola PA-C Work Phone: [facility] 07-12-2024 10:24-0400 Systolic blood pressure 139 mm[Hg] Anette Arreola PA-C Work Phone: [facility] Comment on above: average with machine 07-12-2024 09:54-0400 Body mass index (BMI) [Ratio] 29.6 kg/m2 Anette Arreola PA-C Work Phone: [facility] 07-12-2024 09:54-0400 Body temperature 97.7 [degF] Anette Arreola PA-C Work Phone: [facility] 07-12-2024 09:54-0400 Body weight 90.27 kg Anette Arreola PA-C Work Phone: [facility] 07-12-2024 09:54-0400 Respiratory rate 16 /min Anette Arreola PA-C Work Phone: [facility] 07-12-2024 09:54-0400 SaO2% (BldA) [Mass fraction] 98 % Anette Arreola PA-C Work Phone: [facility] 05-02-2024 09:12-0400 Body mass index (BMI) [Ratio] 29.6 kg/m2 Cruz Prado MD Work Phone: [facility] 05-02-2024 09:12-0400 Body temperature 97.3 [degF] Cruz Prado MD Work Phone: [facility] 05-02-2024 09:12-0400 Body weight 90.27 kg Cruz Prado MD Work Phone: [facility] 05-02-2024 09:12-0400 Diastolic blood pressure 70 mm[Hg] Cruz Prado MD Work Phone: [facility] 05-02-2024 09:12-0400 Heart rate 64 /min Cruz Prado MD Work Phone: [facility] 05-02-2024 09:12-0400 Respiratory rate 16 /min Cruz Prado MD Work Phone: [facility] 05-02-2024 09:12-0400 Systolic blood pressure 130 mm[Hg] Cruz Prado MD Work Phone: [facility] 04-12-2024 09:56-0400 Body mass index (BMI) [Ratio] 29.51 kg/m2 Francisco Suh MD Work Phone: [facility] 04-12-2024 09:56-0400 Body temperature 97.11 [degF] Francisco Suh MD Work Phone: [facility] 04-12-2024 09:56-0400 Body weight 90 kg Francisco Suh MD Work Phone: [facility] 04-12-2024 09:56-0400 Diastolic blood pressure 80 mm[Hg] Francisco Suh MD Work Phone: [facility] 04-12-2024 09:56-0400 Heart rate 72 /min Francisco Suh MD Work Phone: [facility] 04-12-2024 09:56-0400 Respiratory rate 18 /min Francisco Suh MD Work Phone: [facility] 04-12-2024 09:56-0400 SaO2% (BldA) [Mass fraction] 97 % Francisco Suh MD Work Phone: [facility] 04-12-2024 09:56-0400 Systolic blood pressure 158 mm[Hg] Francisco Suh MD Work Phone: [facility] 04-04-2024 10:44-0400 Body mass index (BMI) [Ratio] 30.07 kg/m2 Tanya Vega TAX COMPLIANCE MANAGER.OFFICE ADMIN Work Phone: [facility] 04-04-2024 10:44-0400 Body temperature 97.59 [degF] Tanya Vega TAX COMPLIANCE MANAGER.OFFICE ADMIN Work Phone: [facility] 04-04-2024 10:44-0400 Body weight 91.7 kg Tanya Vega TAX COMPLIANCE MANAGER.OFFICE ADMIN Work Phone: [facility] 06-05-2024 10:44-0400 Diastolic blood pressure 64 mm[Hg] Tanya Vega TAX COMPLIANCE MANAGER.OFFICE ADMIN Work Phone: [facility] 04-04-2024 10:44-0400 Heart rate 90 /min Tanya Vega TAX COMPLIANCE MANAGER.OFFICE ADMIN Work Phone: [facility] 04-04-2024 10:44-0400 Respiratory rate 21 /min Tanya Vega TAX COMPLIANCE MANAGER.OFFICE ADMIN Work Phone: [facility] 04-04-2024 10:44-0400 SaO2% (BldA) [Mass fraction] 98 % Tanya Vega TAX COMPLIANCE MANAGER.OFFICE ADMIN Work Phone: [facility] 04-04-2024 10:44-0400 Systolic blood pressure 120 mm[Hg] Tanya Vega TAX COMPLIANCE MANAGER.OFFICE ADMIN Work Phone: [facility] 04-02-2024 11:13-0400 Body mass index (BMI) [Ratio] 29.84 kg/m2 Francisco Suh MD Work Phone: [facility] 04-02-2024 11:13-0400 Body temperature 98.1 [degF] Francisco Suh MD Work Phone: [facility] 04-02-2024 11:13-0400 Body weight 91 kg Francisco Suh MD Work Phone: [facility] 04-02-2024 11:13-0400 Diastolic blood pressure 68 mm[Hg] Francisco Suh MD Work Phone: [facility] 04-02-2024 11:13-0400 Heart rate 99 /min Francisco Suh MD Work Phone: [facility] 04-02-2024 11:13-0400 Respiratory rate 18 /min Francisco Suh MD Work Phone: [facility] 04-02-2024 11:13-0400 SaO2% (BldA) [Mass fraction] 97 % Francisco Suh MD Work Phone: [facility] 04-02-2024 11:13-0400 Systolic blood pressure 134 mm[Hg] Francisco Suh MD Work Phone: [facility] 01-31-2024 15:20-0400 Body weight 91.17 kg Lorie Moses TAX COMPLIANCE MANAGER.OFFICE ADMIN Work Phone: [facility] 01-31-2024 15:20-0400 Diastolic blood pressure 80 mm[Hg] Lorie Moses TAX COMPLIANCE MANAGER.OFFICE ADMIN Work Phone: [facility] 01-31-2024 15:20-0400 Heart rate 74 /min Lorie Moses TAX COMPLIANCE MANAGER.OFFICE ADMIN Work Phone: [facility] 01-31-2024 15:20-0400 Respiratory rate 16 /min Lorie Moses TAX COMPLIANCE MANAGER.OFFICE ADMIN Work Phone: [facility] 01-31-2024 15:20-0400 Systolic blood pressure 142 mm[Hg] Lorie Moses TAX COMPLIANCE MANAGER.OFFICE ADMIN Work Phone: [facility] 09-27-2023 09:52-0500 Body temperature 96.01 [degF] Alexandria Podlogar TAX COMPLIANCE MANAGER.OFFICE ADMIN Work Phone: [facility] 09-27-2023 09:52-0500 Body weight 93.44 kg Alexandria Podlogar TAX COMPLIANCE MANAGER.OFFICE ADMIN Work Phone: [facility] 09-27-2023 09:52-0500 Diastolic blood pressure 82 mm[Hg] Alexandria Podlogar TAX COMPLIANCE MANAGER.OFFICE ADMIN Work Phone: [facility] 09-27-2023 09:52-0500 Heart rate 68 /min Alexandria Podlogar TAX COMPLIANCE MANAGER.OFFICE ADMIN Work Phone: [facility] 09-27-2023 09:52-0500 Respiratory rate 18 /min Alexandria Podlogar TAX COMPLIANCE MANAGER.OFFICE ADMIN Work Phone: [facility] 09-27-2023 09:52-0500 SaO2% (BldA) [Mass fraction] 96 % Alexandria Podlogar TAX COMPLIANCE MANAGER.OFFICE ADMIN Work Phone: [facility] 09-27-2023 09:52-0500 Systolic blood pressure 150 mm[Hg] Alexandria Contreras TAX COMPLIANCE MANAGER.OFFICE ADMIN Work Phone: [facility] 08-19-2023 10:53-0400 Body temperature 97.2 [degF] Gabby Stark TAX COMPLIANCE MANAGER.OFFICE ADMIN Work Phone: [facility] 08-19-2023 10:53-0400 Body weight 93.62 kg Gabby Lincoln TAX COMPLIANCE MANAGER.OFFICE ADMIN Work Phone: [facility] 08-19-2023 10:53-0400 Diastolic blood pressure 78 mm[Hg] Gabby Lincoln TAX COMPLIANCE MANAGER.OFFICE ADMIN Work Phone: [facility] 08-19-2023 10:53-0400 Heart rate 77 /min Gabby Lincoln TAX COMPLIANCE MANAGER.OFFICE ADMIN Work Phone: [facility] 08-19-2023 10:53-0400 Respiratory rate 16 /min Gabby Lincoln TAX COMPLIANCE MANAGER.OFFICE ADMIN Work Phone: [facility] 08-19-2023 10:53-0400 SaO2% (BldA) [Mass fraction] 96 % Gabby Lincoln TAX COMPLIANCE MANAGER.OFFICE ADMIN Work Phone: [facility] 08-19-2023 10:53-0400 Systolic blood pressure 138 mm[Hg] Gabby Lincoln TAX COMPLIANCE MANAGER.OFFICE ADMIN Work Phone: [facility] 08-05-2023 15:47-0400 Body temperature 99 [degF] Aism Denis TAX COMPLIANCE MANAGER.OFFICE ADMIN Work Phone: [facility] 08-05-2023 15:47-0400 Body weight 93.26 kg Asim Denis TAX COMPLIANCE MANAGER.OFFICE ADMIN Work Phone: [facility] 08-05-2023 15:47-0400 Diastolic blood pressure 70 mm[Hg] Asim Denis TAX COMPLIANCE MANAGER.OFFICE ADMIN Work Phone: [facility] 08-05-2023 15:47-0400 Heart rate 86 /min Asim Denis TAX COMPLIANCE MANAGER.OFFICE ADMIN Work Phone: [facility] 08-05-2023 15:47-0400 Respiratory rate 18 /min Asim Denis APRN.OFFICE ADMIN Work Phone: [facility] 08-05-2023 15:47-0400 SaO2% (BldA) [Mass fraction] 97 % Asim Denis APRN.OFFICE ADMIN Work Phone: [facility] 08-05-2023 15:47-0400 Systolic blood pressure 125 mm[Hg] Asim Denis APRN.OFFICE ADMIN Work Phone: [facility] 08-04-2023 07:53-0400 Body temperature 97.2 [degF] Anette Arreola PA-C Work Phone: [facility] 08-04-2023 07:53-0400 Body weight 91.17 kg Anette Arreola PA-C Work Phone: [facility] 08-04-2023 07:53-0400 Diastolic blood pressure 70 mm[Hg] Anette Arreola PA-C Work Phone: [facility] 08-04-2023 07:53-0400 Heart rate 80 /min Anette Arreola PA-C Work Phone: [facility] 08-04-2023 07:53-0400 Respiratory rate 16 /min Anette Arreola PA-C Work Phone: [facility] 08-04-2023 07:53-0400 Systolic blood pressure 122 mm[Hg] Anette Arreola PA-C Work Phone: [facility] 06-20-2023 12:34-0400 Diastolic blood pressure 82 mm[Hg] [facility] 06-20-2023 12:34-0400 Heart rate 81 /min [facility] 06-20-2023 12:34-0400 Respiratory rate 18 /min [facility] 06-20-2023 12:34-0400 SaO2% (BldA) [Mass fraction] 98 % [facility] 06-20-2023 12:34-0400 Systolic blood pressure 144 mm[Hg] [facility] 06-20-2023 11:41-0400 Body height 178 cm [facility] 06-20-2023 11:41-0400 Body mass index (BMI) [Ratio] 29.3 kg/m2 [facility] 06-20-2023 11:41-0400 Body temperature 98.6 [degF] [facility] 06-20-2023 11:41-0400 Body weight 92.9 kg [facility] 06-02-2023 19:28-0400 Diastolic blood pressure 76 mm[Hg] [facility] 06-02-2023 19:28-0400 Heart rate 76 /min [facility] 06-02-2023 19:28-0400 SaO2% (BldA) [Mass fraction] 96 % [facility] 06-02-2023 19:28-0400 Systolic blood pressure 117 mm[Hg] [facility] 06-02-2023 18:08-0400 Respiratory rate 16 /min [facility] 06-02-2023 15:08-0400 Body height 177.8 cm [facility] 06-02-2023 15:08-0400 Body mass index (BMI) [Ratio] 28.3 kg/m2 [facility] 06-02-2023 15:08-0400 Body temperature 97.5 [degF] [facility] 06-02-2023 15:08-0400 Body weight 89.4 kg [facility] 05-10-2023 19:53-0400 Heart rate 81 /min [facility] 05-10-2023 19:53-0400 Respiratory rate 18 /min [facility] 05-10-2023 19:53-0400 SaO2% (BldA) [Mass fraction] 98 % [facility] 05-10-2023 17:09-0400 Body height 177.8 cm [facility] 05-10-2023 17:09-0400 Body mass index (BMI) [Ratio] 27.9 kg/m2 [facility] 05-10-2023 17:09-0400 Body temperature 97.4 [degF] [facility] 05-10-2023 17:09-0400 Body weight 88.45 kg [facility] 05-10-2023 17:09-0400 Diastolic blood pressure 69 mm[Hg] [facility] 05-10-2023 17:09-0400 Systolic blood pressure 152 mm[Hg] [facility] 01-08-2023 12:03-0500 Body temperature 97.59 [degF] Krislyn Aberegg PA Work Phone: [facility] 01-08-2023 12:03-0500 Body weight 89.63 kg Krislyn Aberegg PA Work Phone: [facility] 01-08-2023 12:03-0500 Diastolic blood pressure 64 mm[Hg] Krislyn Aberegg PA Work Phone: [facility] 01-08-2023 12:03-0500 Heart rate 85 /min Krislyn Aberegg PA Work Phone: [facility] 01-08-2023 12:03-0500 Respiratory rate 21 /min Krislyn Aberegg PA Work Phone: [facility] 01-08-2023 12:03-0500 SaO2% (BldA) [Mass fraction] 98 % Krislyn Aberegg PA Work Phone: [facility] 01-08-2023 12:03-0500 Systolic blood pressure 118 mm[Hg] Krislyn Aberegg PA Work Phone: [facility] 12-14-2022 13:23-0500 Body temperature 97.5 [degF] Gabby Lincoln TAX COMPLIANCE MANAGER.OFFICE ADMIN Work Phone: [facility] 12-14-2022 13:23-0500 Body weight 88.45 kg Gabby Lincoln TAX COMPLIANCE MANAGER.OFFICE ADMIN Work Phone: [facility] 12-14-2022 13:23-0500 Diastolic blood pressure 78 mm[Hg] Gabby Lincoln TAX COMPLIANCE MANAGER.OFFICE ADMIN Work Phone: [facility] 12-14-2022 13:23-0500 Heart rate 69 /min Gabby Lincoln TAX COMPLIANCE MANAGER.OFFICE ADMIN Work Phone: [facility] 02-14-2023 13:23-0500 Respiratory rate 18 /min Gabby Stark APRN.OFFICE ADMIN Work Phone: [facility] 12-14-2022 13:23-0500 SaO2% (BldA) [Mass fraction] 97 % Gabby Stark APRN.OFFICE ADMIN Work Phone: [facility] 12-14-2022 13:23-0500 Systolic blood pressure 130 mm[Hg] Gabby Stark APRN.OFFICE ADMIN Work Phone: [facility] 10-13-2022 14:16-0500 Diastolic blood pressure 70 mm[Hg] Cruz Prado MD Work Phone: [facility] 10-13-2022 14:16-0500 Systolic blood pressure 124 mm[Hg] Cruz Prado MD Work Phone: [facility] 10-13-2022 13:33-0500 Body height 174 cm Cruz Prado MD Work Phone: [facility] 10-13-2022 13:33-0500 Body weight 85.73 kg Cruz Prado MD Work Phone: [facility] 10-13-2022 13:33-0500 Heart rate 76 /min Cruz Prado MD Work Phone: [facility] 10-13-2022 13:33-0500 Respiratory rate 16 /min Cruz Prado MD Work Phone: [facility] 07-19-2022 18:05-0400 Body temperature 98.1 [degF] Asim Denis APRN.OFFICE ADMIN Work Phone: [facility] 07-19-2022 18:05-0400 Body weight 88.36 kg Asim Denis APRN.OFFICE ADMIN Work Phone: [facility] 07-19-2022 18:05-0400 Diastolic blood pressure 80 mm[Hg] Asim Denis APRN.OFFICE ADMIN Work Phone: [facility] 07-19-2022 18:05-0400 Heart rate 78 /min Asim Denis APRN.OFFICE ADMIN Work Phone: [facility] 07-19-2022 18:05-0400 Respiratory rate 16 /min Asim Denis TAX COMPLIANCE MANAGER.OFFICE ADMIN Work Phone: [facility] [facility] 07-19-2022 18:05-0400 SaO2% (BldA) [Mass fraction] 97 % Asim Denis TAX COMPLIANCE MANAGER.OFFICE ADMIN Work Phone: [facility] 07-19-2022 18:05-0400 Systolic blood pressure 128 mm[Hg] Asim Denis TAX COMPLIANCE MANAGER.OFFICE ADMIN Work Phone: [facility] 07-08-2022 16:52-0400 Body temperature 99.3 [degF] Alexandria Callow TAX COMPLIANCE MANAGER.OFFICE ADMIN Work Phone: [facility] 07-08-2022 16:52-0400 Body weight 89.09 kg Alexandria Callow TAX COMPLIANCE MANAGER.OFFICE ADMIN Work Phone: [facility] 07-08-2022 16:52-0400 Diastolic blood pressure 82 mm[Hg] Alexandria Callow TAX COMPLIANCE MANAGER.OFFICE ADMIN Work Phone: [facility] 07-08-2022 16:52-0400 Heart rate 87 /min Alexandria Callow TAX COMPLIANCE MANAGER.OFFICE ADMIN Work Phone: [facility] 07-08-2022 16:52-0400 Respiratory rate 16 /min Alexandria Callow TAX COMPLIANCE MANAGER.OFFICE ADMIN Work Phone: [facility] 07-08-2022 16:52-0400 SaO2% (BldA) [Mass fraction] 96 % Alexandria Callow TAX COMPLIANCE MANAGER.OFFICE ADMIN Work Phone: [facility] 07-08-2022 16:52-0400 Systolic blood pressure 136 mm[Hg] Alexandria Callow TAX COMPLIANCE MANAGER.OFFICE ADMIN Work Phone: [facility] 06-15-2022 08:08-0400 Body height 177.[address] Cruz Prado Work Phone: [facility] Work Phone: 06-15-2022 08:08-0400 Body mass index (BMI) [Ratio] 27.3 kg/m2 Dr. Cruz Prado Work Phone: [facility] Work Phone: 06-15-2022 08:08-0400 Body weight 86.[address] Cruz Prado Work Phone: [facility] Work Phone: 06-15-2022 08:08-0400 Diastolic blood pressure 84 mm[Hg] Dr. Cruz Prado Work Phone: [facility] Work Phone: 06-15-2022 08:08-0400 Heart rate 71 /min Dr. Cruz Prado Work Phone: [facility] Work Phone: 06-15-2022 08:08-0400 Respiratory rate 18 /min Dr. Cruz Prado Work Phone: [facility] Work Phone: 06-15-2022 08:08-0400 SaO2% (BldA) [Mass fraction] 97 % Dr. Cruz Prado Work Phone: [facility] Work Phone: 06-15-2022 08:08-0400 Systolic blood pressure 138 mm[Hg] Dr. Cruz Prado Work Phone: [facility] Work Phone: 06-01-2022 19:41-0400 Diastolic blood pressure 66 mm[Hg] Gilberto Ca MD Work Phone: [facility] 06-01-2022 19:41-0400 Heart rate 89 /min Gilberto Ca MD Work Phone: [facility] 06-01-2022 19:41-0400 Respiratory rate 16 /min Gilberto Ca MD Work Phone: [facility] 06-01-2022 19:41-0400 SaO2% (BldA) [Mass fraction] 95 % Gilberto Ca MD Work Phone: [facility] 06-01-2022 19:41-0400 Systolic blood pressure 136 mm[Hg] Gilberto Ca MD Work Phone: [facility] 06-01-2022 16:40-0400 Body temperature 99.1 [degF] Gilberto Ca MD Work Phone: [facility] 05-12-2022 16:55-0400 Body height 174 cm Cruz Prado MD Work Phone: [facility] 05-12-2022 16:55-0400 Body weight 88.91 kg Cruz Prado MD Work Phone: [facility] 05-12-2022 16:55-0400 Diastolic blood pressure 84 mm[Hg] Cruz Prado MD Work Phone: [facility] 05-12-2022 16:55-0400 Heart rate 64 /min Cruz Prado MD Work Phone: [facility] 05-12-2022 16:55-0400 Respiratory rate 16 /min Cruz Prado MD Work Phone: [facility] 05-12-2022 16:55-0400 Systolic blood pressure 128 mm[Hg] Cruz Prado MD Work Phone: [facility] 03-31-2022 09:53-0400 Body height 177.8 cm Izabela Primitivo PA-C Work Phone: [facility] 03-31-2022 09:53-0400 Body temperature 98.2 [degF] Izabela Primitivo PA-C Work Phone: [facility] 03-31-2022 09:53-0400 Body weight 88.45 kg Izabela Polvadera PA-C Work Phone: [facility] 03-31-2022 09:53-0400 Diastolic blood pressure 76 mm[Hg] Izabela Polvadera PA-C Work Phone: [facility] 03-31-2022 09:53-0400 Heart rate 82 /min Izabela Primitivo PA-C Work Phone: [facility] 03-31-2022 09:53-0400 SaO2% (BldA) [Mass fraction] 99 % Izabela Langford PA-C Work Phone: [facility] 03-31-2022 09:53-0400 Systolic blood pressure 142 mm[Hg] Izabela Langford PA-C Work Phone: [facility] 03-16-2022 14:00-0400 Body temperature 97.5 [degF] Anette Arreola PA-C Work Phone: [facility] 03-16-2022 14:00-0400 Body weight 88 kg Anette Arreola PA-C Work Phone: [facility] 03-16-2022 14:00-0400 Diastolic blood pressure 76 mm[Hg] Anette Arreola PA-C Work Phone: [facility] 03-16-2022 14:00-0400 Heart rate 72 /min Anette Arreola PA-C Work Phone: [facility] 03-16-2022 14:00-0400 Respiratory rate 18 /min Anette Arreola PA-C Work Phone: [facility] 03-16-2022 14:00-0400 Systolic blood pressure 130 mm[Hg] Anette Arreola PA-C Work Phone: [facility] 02-19-2022 16:59-0400 Body temperature 98.01 [degF] Asim Denis APRN.OFFICE ADMIN Work Phone: [facility] 02-19-2022 16:59-0400 Body weight 90.08 kg Asim Denis APRN.OFFICE ADMIN Work Phone: [facility] 02-19-2022 16:59-0400 Diastolic blood pressure 78 mm[Hg] Asim Denis APRN.OFFICE ADMIN Work Phone: [facility] 02-19-2022 16:59-0400 Heart rate 71 /min Asim Denis APRN.OFFICE ADMIN Work Phone: [facility] 02-19-2022 16:59-0400 Respiratory rate 20 /min Asim Denis APRN.OFFICE ADMIN Work Phone: [facility] 02-19-2022 16:59-0400 SaO2% (BldA) [Mass fraction] 96 % Asim Denis APRN.OFFICE ADMIN Work Phone: [facility] 02-19-2022 16:59-0400 Systolic blood pressure 130 mm[Hg] Asim Denis APRN.OFFICE ADMIN Work Phone: [facility] 02-16-2022 10:07-0400 Body height 177.8 cm Bear Menezes PA-C Work Phone: [facility] 02-16-2022 10:07-0400 Body temperature 97.5 [degF] Bear Menezes PA-C Work Phone: [facility] 02-16-2022 10:07-0400 Body weight 89.81 kg Bear Menezes PA-C Work Phone: [facility] 02-16-2022 10:07-0400 Diastolic blood pressure 76 mm[Hg] Bear Menezes PA-C Work Phone: [facility] 02-16-2022 10:07-0400 Heart rate 80 /min Bear Menezes PA-C Work Phone: [facility] 02-16-2022 10:07-0400 Respiratory rate 14 /min Bear Menezes PA-C Work Phone: [facility] 02-16-2022 10:07-0400 SaO2% (BldA) [Mass fraction] 97 % Bear Menezes PA-C Work Phone: [facility] 02-16-2022 10:07-0400 Systolic blood pressure 136 mm[Hg] Bear Menezes PA-C Work Phone: [facility] 02-03-2022 10:11-0400 Body height 177.[address] Alexandre Giles III Work Phone: [facility] Work Phone: 02-03-2022 10:11-0400 Body mass index (BMI) [Ratio] 28.4 kg/m2 Dr. Alexandre Giles III Work Phone: [facility] Work Phone: 02-03-2022 10:11-0400 Body temperature 97.7 [degF] Dr. Alexandre Giles III Work Phone: [facility] Work Phone: 02-03-2022 10:11-0400 Body weight [address] Alexandre Giles III Work Phone: [facility] Work Phone: 02-03-2022 10:11-0400 Diastolic blood pressure 90 mm[Hg] Dr. Alexandre Giles III Work Phone: [facility] Work Phone: 02-03-2022 10:11-0400 Heart rate 69 /min Dr. Alexandre Giles III Work Phone: [facility] Work Phone: 02-03-2022 10:11-0400 Respiratory rate 14 /min Dr. Alexandre Giles III Work Phone: [facility] Work Phone: 02-03-2022 10:11-0400 SaO2% (BldA) [Mass fraction] 98 % Dr. Alexandre Giles III Work Phone: [facility] Work Phone: 02-03-2022 10:11-0400 Systolic blood pressure 153 mm[Hg] Dr. Alexandre Giles III Work Phone: [facility] Work Phone: 01-24-2022 10:28-0400 Body temperature 97 [degF] Carlos A Mireles APRN.OFFICE ADMIN Work Phone: [facility] 01-24-2022 [id number] Body weight 94.44 kg Carlos A Mireles APRN.OFFICE ADMIN Work Phone: [facility] 01-24-2022 10:28-0400 Diastolic blood pressure 84 mm[Hg] Carlos A Mireles TAX COMPLIANCE MANAGER.OFFICE ADMIN Work Phone: [facility] 01-24-2022 10:28-0400 Heart rate 73 /min Carlo sA Mireles TAX COMPLIANCE MANAGER.OFFICE ADMIN Work Phone: [facility] 01-24-2022 10:28-0400 Respiratory rate 20 /min Carlos A Mireles TAX COMPLIANCE MANAGER.OFFICE ADMIN Work Phone: [facility] 01-24-2022 10:28-0400 SaO2% (BldA) [Mass fraction] 97 % Carlos A Mireles TAX COMPLIANCE MANAGER.OFFICE ADMIN Work Phone: [facility] 01-24-2022 10:28-0400 Systolic blood pressure 138 mm[Hg] Carlos A Mireles TAX COMPLIANCE MANAGER.OFFICE ADMIN Work Phone: [facility] 12-02-2021 07:38-0500 Body mass index (BMI) [Ratio] 29 kg/m2 Dr. Alexandre Giles III Work Phone: [facility] Work Phone: 12-02-2021 07:38-0500 Body weight 91.[address] Alexandre Giles III Work Phone: [facility] Work Phone: 12-02-2021 07:38-0500 Diastolic blood pressure 72 mm[Hg] Dr. Alexandre Giles III Work Phone: [facility] Work Phone: 12-02-2021 07:38-0500 Heart rate 64 /min Dr. Alexandre Giles III Work Phone: [facility] Work Phone: 12-02-2021 07:38-0500 Respiratory rate 16 /min Dr. Alexandre Giles III Work Phone: [facility] Work Phone: 12-02-2021 07:38-0500 Systolic blood pressure 136 mm[Hg] Dr. Alexandre Giles III Work Phone: [facility] Work Phone: 10-21-2021 10:34-0500 Body mass index (BMI) [Ratio] 29 kg/m2 Dr. Alexandre Giles III Work Phone: [facility] Work Phone: 10-21-2021 10:34-0500 Body weight 91.[address] Alexandre Giles III Work Phone: [facility] Work Phone: 10-21-2021 10:34-0500 Diastolic blood pressure 109 mm[Hg] Dr. Alexandre Giles III Work Phone: [facility] Work Phone: 10-21-2021 10:34-0500 Heart rate 82 /min Dr. Alexandre Giles III Work Phone: [facility] Work Phone: 10-21-2021 10:34-0500 Respiratory rate 16 /min Dr. Alexandre Giles III Work Phone: [facility] Work Phone: 10-21-2021 10:34-0500 SaO2% (BldA) [Mass fraction] 97 % Dr. Alexandre Giles III Work Phone: [facility] Work Phone: 10-21-2021 10:34-0500 Systolic blood pressure 200 mm[Hg] Dr. Alexandre Giles III Work Phone: [facility] Work Phone: Encounters Encounter Date Encounter Type Care Provider Facility Start: 08-05-2025 End: 08-05-2025 ambulatory [facility] Facility:[facility] Start: 07-30-2025 End: 07-30-2025 ambulatory [facility] Facility:[facility] Start: 07-29-2025 End: 07-29-2025 Patient encounter procedure Whit S[facility]TH -[facility] Work Phone: Start: 07-29-2025 End: 07-29-2025 ambulatory Cruz Prado Facility:[facility] Start: 05-30-2025 End: 05-31-2025 Telephone encounter Cruz Prado MD Work Phone: [facility] Comment on above: Medication Request ( Request to increase two medications) Start: 05-28-2025 End: 05-28-2025 Patient encounter procedure Irma Brown LEATHER SKINNERKelvinC -[facility] Work Phone: Start: 05-28-2025 End: 05-28-[address] Cruz Prado MD Work Phone: [facility] Start: 05-27-2025 End: 05-27-2025 Patient encounter procedure Ani Linaers Work Phone: Podiatry Comment on above: Diabetic polyneuropa thy associated with type 2 diabetes mellitus (HCC) (Primary Dx); Arthritis of joint of toe; Callus of foot; Bursitis of right foot; Contusion of third toe of left foot, initial encounter Start: 05-27-2025 End: 05-27-2025 ambulatory ANI LINARES Facility:[facility] Start: 04-29-2025 End: 04-29-2025 Patient encounter procedure Whit Zambrano NP- -[facility] Work Phone: Start: 04-29-2025 End: 04-29-[address] Cruz Prado MD Work Phone: [facility] Start: 04-01-2025 End: 04-01-2025 Office outpatient visit 25 minutes Loren Vallecillo APRN.OFFICE ADMIN Work Phone: [facility] Comment on above: Acute non-recurrent pansinusitis (Primary Dx); Seasonal allergic rhinitis due to other allergic trigger; Acute cough Start: 04-01-2025 End: 04-01-2025 ambulatory LOREN VALLECILLO Facility:[facility] Start: 03-28-2025 End: 03-29-2025 Telephone encounter Cruz Prado MD Work Phone: [facility] [place] Comment on above: Refill Request Start: 03-19-2025 End: 03-19-2025 ambulatory CRUZ PRADO Facility:[facility] Start: 02-18-2025 End: 02-18-2025 Patient encounter procedure Asim Denis APRN.CNP Work Phone: [facility] Comment on above: Rhinosinusitis (Prim stewart Dx) Start: 02-18-2025 End: 02-18-2025 ambulatory CRUZ PRADO Facility:[facility] Start: 01-30-2025 End: 01-30-2025 Chart abstracting Milind Denis MA [facility] [facility] Comment on above: Consult (Outside End ocrinology /) Start: 01-29-2025 End: 01-29-2025 ambulatory ANI LINARES Facility:[facility] Start: 01-29-2025 End: 01-29-2025 Patient encounter procedure Ani Linares Work Phone: Podiatry Comment on above: Diabetic polyneuropa thy associated with type 2 diabetes mellitus (HCC) (Primary Dx); Arthritis of joint of toe; Callus of foot Start: 01-28-2025 End: 01-28-2025 Patient encounter procedure Whit Zambrano NP-C -[facility] Work Phone: Start: 01-28-2025 End: 01-28-2025 ambulatory Cruz Prado Facility:[facility] Start: 01-22-2025 End: 01-22-2025 Follow-up encounter Cruz Prado MD Work Phone: [facility] Start: 01-21-2025 End: 01-21-2025 ambulatory CRUZ PRADO Facility:[facility] Start: 01-17-2025 End: 01-18-2025 Follow-up encounter Cruz Prado MD Work Phone: [facility] Start: 01-16-2025 End: 01-16-2025 E-mail encounter from caregiver Milind Denis MA [facility] Start: 01-16-2025 End: 01-16-2025 ambulatory Milind Denis MA [facility] [place] [facility] Comment on above: 2nd shingriix Start: 01-16-2025 End: 01-16-2025 Ophthalmic examination and evaluation Cruz Prado MD Work Phone: [facility] Start: 01-16-2025 End: 01-16-2025 Patient encounter procedure Cruz Prado MD Work Phone: [facility] Comment on above: Well adult exam ([facility] parvin Dx); Type 2 diabetes mellitus with [...] encounter status Cruz Prado MD Work Phone: [facility] Work Phone: Start: 01-08-2025 End: 01-15-2025 Refill Cruz Prado MD Work Phone: [facility] Comment on above: Refill Request Start: 12-24-2024 End: 12-24-2024 ambulatory Lucrecia Rayo Facility:[facility] Start: 12-12-2024 End: 12-12-2024 ambulatory CRUZ PRADO Facility:[facility] Start: 12-12-2024 End: 12-12-2024 Office outpatient visit 25 minutes Jeffery Brothers PA-C Work Phone: [facility] Comment on above: Acute recurrent sinu sitis, unspecified location (Primary Dx) Start: 12-04-2024 End: 12-04-2024 Chart abstracting Cruz Prado MD Work Phone: [facility] [place] Comment on above: Outside Abvx-Qto-FFH Ordered Start: 11-30-2024 End: 11-30-2024 Chart abstracting Cruz Prado MD Work Phone: [facility] Comment on above: Outside Wnnd-Brl-UQP Ordered Start: 11-29-2024 End: 11-29-2024 Chart abstracting Cruz Prado MD Work Phone: [facility] [place] Comment on above: Outside Eiak-Qoi-MUK Ordered Start: 11-27-2024 End: 11-28-2024 ambulatory [facility] Facility:[facility] Start: 11-21-2024 End: 11-21-2024 Chart abstracting Cruz Prado MD Work Phone: [facility] Comment on above: Outside EGD/ H&P Start: 11-21-2024 End: 11-22-2024 Telephone encounter Cruz Prado MD Work Phone: [facility] Comment on above: Results Start: 11-21-2024 End: 11-21-2024 ambulatory CRUZ PRADO Facility:[facility] Start: 11-20-2024 End: 11-20-2024 ambulatory Cruz Prado MD Work Phone: [facility] Comment on above: Ozempic Start: 11-14-2024 End: 11-14-2024 Chart abstracting Cruz Prado MD Work Phone: [facility] Comment on above: Outside Imaging Start: 11-13-2024 End: 11-13-[facility] Start: 11-07-2024 End: 11-07-2024 Telephone encounter Cruz Prado MD Work Phone: [facility] Comment on above: Faxed to [facility] Start: 11-06-2024 End: 11-07-2024 ambulatory Cruz Prado MD Work Phone: [facility] Start: 11-06-2024 End: 11-07-2024 Patient encounter procedure Cruz Prado MD Work Phone: [facility] Comment on above: Could you please fanta e a referral to the panel beater department at [facility]? I cannot get in without that. Start: 10-29-2024 End: 10-29-2024 Refill Cruz Prado MD Work Phone: [facility] Comment on above: Refill Request Start: 10-22-2024 End: 10-22-2024 ambulatory Cruz Prado MD Work Phone: [facility] Comment on above: A1c Start: 10-18-2024 End: 10-18-2024 Refill Cruz Prado MD Work Phone: [facility] Comment on above: Refill Request Start: 10-17-2024 End: 10-17-2024 Chart abstracting Milind Denis MA [facility] [place] Comment on above: Results (Outside [facility] ) Start: 10-17-2024 End: 10-19-2024 Telephone encounter Cruz Prado MD Work Phone: [facility] Comment on above: medication issue Insurance Authorizat ion Start: 10-15-2024 End: 10-15-2024 ambulatory Irma Kevin Facility:[facility] Start: 10-08-2024 End: 10-08-2024 Telephone encounter Cruz Prado MD Work Phone: [facility] Comment on above: Patient Question Appointment Start: 09-24-2024 End: 09-24-2024 ambulatory Cruz Prado Facility:[facility] Start: 09-21-2024 End: 09-26-2024 Refill Cruz Prado MD Work Phone: [facility] Comment on above: Refill Request Insurance Authorizat ion Start: 09-11-2024 End: 09-11-2024 Telephone encounter Milind Denis MA [facility] [place] Comment on above: Results Start: 09-07-2024 End: 09-07-2024 Chart abstracting [facility] Start: 09-07-2024 ambulatory Cruz Prado Facility :[facility] Start: 08-31-2024 End: 08-31-2024 Refill Cruz Prado MD Work Phone: [facility] Comment on above: Refill Request Start: 08-20-2024 End: 08-20-2024 Telephone encounter Cruz Prado MD Work Phone: [facility] Comment on above: requesting medicatio n that is Consult Start: 07-12-2024 End: 07-12-2024 Patient encounter procedure Anette Arreola PA-C Work Phone: [facility] Comment on above: Essential hypertensi on, benign [...] Telephone encounter Lorie Moses APRN.CNP Work Phone: [facility] Comment on above: Results Start: 06-26-2024 End: 06-26-2024 Telephone encounter Milind Denis MA [facility] [address] [address] Comment on above: Results Start: 06-07-2024 End: 06-07-2024 Patient encounter procedure Ani Linares Work Phone: Podiatry Comment on above: 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) (Primary Dx); Venous insufficiency Start: 05-14-2024 [facility] Comment on above: FMLA Paperwork Start: 05-02-2024 End: 05-02-2024 Patient encounter procedure Cruz Prado MD Work Phone: [facility] Comment on above: Scar pain (Primary D [...] Telephone encounter Cruz Prado MD Work Phone: [facility] Comment on above: Forms Start: 04-05-2024 ambulatory Cruz cast MD Work Phone: [facility] [place] Comment on above: Fmla paper work Start: 04-04-2024 End: 04-04-2024 Patient encounter procedure Tanya Vega TAX COMPLIANCE MANAGER.OFFICE ADMIN Work Phone: [facility] Comment on above: Encounter to obtain excuse from work (Primary Dx); Acute non-recurrent sinusitis, unspecified location Start: 04-02-2024 End: 04-02-2024 Patient encounter procedure Francisco Suh MD Work Phone: [facility] Comment on above: Acute non-recurrent sinusitis, unspecified location (Primary Dx) Refill Request Start: 01-31-2024 End: 01-31-2024 Patient encounter procedure Lorie Moses TAX COMPLIANCE MANAGER.OFFICE ADMIN Work Phone: [facility] Comment on above: Irritable bowel synd jemal with both constipation and diarrhea (Primary Dx) Start: 01-02-2024 Telephone encounter Cruz Prado MD Work Phone: [facility] [place] Comment on above: Results Start: 12-30-2023 Patient encounter status Elidia Prado MD Work Phone: [facility] Work Phone: Start: 12-20-2023 Telephone encounter Cruz Prado MD Work Phone: [facility] [place] Comment on above: Medication Problem Start: 10-27-2023 ambulatory LORIE KNJONO Maharaj y:[facility] Start: 09-27-2023 End: 09-27-2023 Patient encounter procedure Alexandria Contreras TAX COMPLIANCE MANAGER.OFFICE ADMIN Work Phone: [facility] Comment on above: Pain of maxillary si nus (Primary Dx) Start: 09-26-2023 End: 09-26-2023 Patient encounter procedure Nkechi Ramos PA-C Work Phone: Orthopaedics Comment on above: Trigger ring finger of right hand (Primary Dx); Dupuytren's disease of palm Start: 09-15-2023 Telephone encounter Cruz Prado MD Work Phone: [facility] Comment on above: FMLA Paperwork (Rece rtification ) Start: 09-12-2023 Telephone encounter Milind Denis MA [facility] [place] Comment on above: Orders Start: 09-07-2023 Telephone [...] End: 08-19-2023 Patient encounter procedure Gabby Stark TAX COMPLIANCE MANAGER.OFFICE ADMIN Work Phone: [facility] Comment on [...] encounter procedure Asim Cira RIVERA Work Phone: [facility] Comment on above: URI, acute (Primary Dx) Start: 08-05-2023 Telephone encounter Anette urbano PA-C Work Phone: [facility] Comment on above: Patient Question Start: 08-04-2023 End: 08-04-2023 Patient encounter procedure Anette Arreola PA-C Work Phone: [facility] Comment on above: Irritable bowel synd jemal with both constipation and diarrhea (Primary Dx); Encounter for immunization; Controlled type 2 diabetes mellitus with stage 3 chronic kidney disease, without long-term current use of insulin ([facility]) Start: 06-20-2023 End: 06-20-2023 Emergency department patient visit [facility] Work Phone: Start: 06-02-2023 End: 06-02-2023 Emergency department patient visit [facility] Work Phone: Start: 05-19-2023 Vaishnavi cast MD Work Phone: [facility] Start: 05-10-2023 End: 05-10-2023 Emergency department patient visit [facility] Work Phone: Start: 02-23-2023 End: 02-23-2023 ambulatory Jannet Rock PT Work Phone: [facility] Comment on above: Pain in both lower e xtremities (Primary Dx); Greater trochanteric bursitis of both hips; Acute midline low back pain without sciatica; Muscle weakness of lower extremity Start: 02-15-2023 End: 02-15-2023 ambulatory Jannet Rock PT Work Phone: [facility] Comment on above: Pain in both lower e xtremities (Primary Dx); Greater trochanteric bursitis of both hips; Acute midline low back pain without sciatica; Muscle weakness of lower extremity Start: 02-01-2023 Refill Cruz cast MD Work Phone: [facility] Comment on above: Refill Request Start: 01-26-2023 Telephone encounter Milind Denis MA [facility] Comment on above: Medication Problem Results Start: 01-21-2023 End: 01-21-2023 Subsequent hospital visit by physician Cordelia [facility] Work Phone: Radiology Comment on above: Bilateral hip pain [ M25.551, M25.552] Start: 01-10-2023 End: 01-11-2023 ambulatory Jannet Pranav PT Work Phone: [facility] Comment on above: Pain in both lower e xtremities; Greater trochanteric bursitis of both hips; Acute midline low back pain without sciatica; Muscle weakness of lower extremity Start: 01-08-2023 End: 01-08-2023 Patient encounter procedure Jesus Mc PA Work Phone: [facility] Comment on above: Conjunctivitis of le ft eye, unspecified conjunctivitis type (Primary Dx) Start: 12-24-2022 Refill Cruz cast MD Work Phone: [facility] Comment on above: Refill Request Start: 12-14-2022 Telephone encounter Cruz Prado MD Work Phone: [facility] Comment on above: Results Start: 12-14-2022 End: 12-14-2022 Patient encounter procedure Gabby Stark APRN.OFFICE ADMIN Work Phone: [facility] Comment on above: Fatigue, unspecified type (Primary Dx); Diarrhea, unspecified type Start: 12-10-2022 Telephone encounter Cruz Prado MD Work Phone: [facility] Comment on above: Results Start: 12-09-2022 End: 12-09-2022 Subsequent hospital visit by physician Cordelia [facility] Work Phone: Radiology Comment on above: Acute midline low ba ck pain without sciatica [M54.50] Start: 11-11-2022 Refill Cruz cast MD Work Phone: [facility] Comment on above: Refill Request Start: 11-02-2022 Telephone encounter Cruz Prado MD Work Phone: [facility] Comment on above: Results Start: 10-18-2022 Refill Cruz cast MD Work Phone: [facility] [place] Comment on above: Refill Request Start: 10-13-2022 Ophthalmic examinati on and evaluation CRUZ PRADO [facility] Work Phone: Start: 10-13-2022 End: 10-13-2022 Patient encounter procedure Cruz Prado MD Work Phone: [facility] Comment on above: Well adult [...] status Elidia Prado MD Work Phone: [facility] [place] Start: 08-23-2022 Telephone encounter Cruz Prado MD Work Phone: [facility] Comment on above: Orders Start: 08-08-2022 Refill Anette Munizins on PA-C Work Phone: [facility] Comment on above: Refill Request Start: 08-06-2022 Telephone encounter Anette urbano PA-C Work Phone: [facility] Comment on above: requesting 90 day dorantes pply for rx Start: 08-04-2022 End: 08-04-[address] Cruz Prado Work Phone: [facility] Work Phone: Start: 08-04-2022 End: 08-04-[address] Cruz Prado Work Phone: [facility]/Neurology Start: 07-19-2022 End: 07-19-2022 Patient encounter procedure Asim Denis APRN.OFFICE ADMIN Work Phone: [facility] Comment on above: Skin infection (Prim stewart Dx) Start: 07-09-2022 ambulatory Cruz cast MD Work Phone: [facility] Comment on above: Question regarding C OVID WITH FLUA+B, ROUTINE COVID positive; inqu iring about paxlovid Start: 07-08-2022 End: 07-08-2022 Patient encounter procedure Alexandria Pace APRN.OFFICE ADMIN Work Phone: [facility] Comment on above: Sinus congestion (Pr imary Dx); Acute upper respiratory infection, unspecified Start: 07-06-2022 Telephone encounter Anette urabno PA-C Work Phone: [facility] Comment on above: Appointment Canceled (FYI) Start: 06-18-2022 End: 06-18-2022 ambulatory Izabela Langford PA-C Work Phone: General Surgery Comment on above: 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 Cruz Prado Work Phone: [facility] Start: 06-09-2022 Telephone encounter Rema Aburto APRN.CNP Work Phone: [facility] [place] Comment on above: Opened In Error Start: 06-01-2022 End: 06-01-2022 Subsequent hospital visit by physician Gilberto Ca MD Work Phone: Ambulatory Surgery Comment on above: Abdominal pain, unsp ecified abdominal location [R10.9] Start: 05-30-2022 Telephone encounter Cruz Prado MD Work Phone: [facility] Comment on above: Results Start: 05-12-2022 End: 05-12-2022 Patient encounter procedure Cruz Prado MD Work Phone: [facility] Comment on above: Burning sensation of foot [...] and evaluation Izabela Langford PA-C Work Phone: [facility] Start: 03-16-2022 End: 03-16-2022 Patient encounter procedure Anette Arreola PA-C Work Phone: [facility] Comment on above: Hypersomnia (Primary Dx); Fatigue, [...] End: 02-19-2022 Patient encounter procedure Asim Cira LEDBETTEROFFICE ADMIN Work Phone: [facility] Comment on above: Head congestion (Nilda parvin Dx) Start: 02-18-2022 ambulatory Cruz cast MD Work Phone: [facility] [place] Comment on above: [id number] mg Prescription Refills Start: 02-16-2022 End: 02-16-2022 [...] visit Dr. Alexandre Giles III Work Phone: [facility]Emergency Department Start: 01-29-2022 End: 01-29-2022 ambulatory Bear Menezes PA-C Work Phone: Urology Comment on above: Impotence of organic origin (Primary Dx); Controlled type 2 diabetes mellitus with stage 3 chronic kidney disease, without long-term current use of insulin ([facility]) Start: 01-29-2022 End: 01-29-2022 Telemedicine consultation with patient Bear Menezes PA-C Work Phone: [facility] Start: 01-29-2022 Telephone encounter Bear novoa PA-C Work Phone: Urology Comment on above: Question patient asking for r eferral Start: 01-24-2022 End: 01-24-2022 Patient encounter procedure Carlos A Mireles WOODYMaureenOFFICE ADMIN Work Phone: [facility] Comment on above: Irritation of right eye (Primary Dx) Start: 01-22-2022 Telephone encounter Bear Ortez bright MCKAY Work Phone: Urology Comment on above: appointment question Start: 01-18-2022 Refill Cruz cast MD Work Phone: [facility] Comment on above: Refill Request Start: 12-02-2021 End: 12-02-[address] Alexandre Giles III Work Phone: [facility] Start: 11-04-2021 Non-patient / Non-visit Dr. Fr lorrie Giles III Work Phone: [facility] Start: 11-04-2021 End: 11-04-[address] [facility] Start: 10-21-2021 End: 10-21-[address] Alexandre Giles III Work Phone: [facility] Start: 08-03-2021 End: 08-03-2021 Subsequent hospital visit by physician Xr [facility] Work Phone: Radiology Comment on above: RUQ abdominal pain [ R10.11] Start: 10-18-2020 End: 10-18-2020 Subsequent hospital visit by physician Xr [facility] Work Phone: Radiology Comment on above: Right flank pain [R1 0.9] Start: 08-21-2018 End: 08-21-2018 ambulatory Proce Wstr Work Phone: Gastro/Endoscopy Comment on above: No Show Start: 08-21-2018 End: 08-21-2018 Patient encounter procedure Proce Rm 1 Endoscopy [facility] Work Phone: [facility] Start: 12-23-[address] [facility] Start: 09-29-2011 End: 02-15-2013 Patient encounter status Francisco Suh MD Work Phone: [facility] Work Phone: Procedures Date Procedure Procedure Detail Performing Clinician Start: 01-16-2025 Adult depression screening assessment Cruz Prado MD Work Phone: Start: 08-05-2023 COVID & INFLUENZA A/B & RSV NAAT, ROUTINE Asim Denis APRN.OFFICE ADMIN Work Phone: Start: 08-05-2023 Iadna respiratry probe & rev trnscr 3-5 targets Asim Denis APRN.OFFICE ADMIN Work Phone: Start: 08-05-2023 Sars-cov-2 detection by dna/rna Dora Denis APRN.OFFICE ADMIN Work Phone: Start: 08-04-2023 INFLUENZA VACCINE, PRSV [...] Radiologic exam abdomen 3+ views Jered Butler APRN.OFFICE ADMIN, DNP Work Phone: Start: 01-22-2019 Antibody screen Comment on above: Performed By: #### T&S #### [place] [id number] Start: 08-21-2018 EGD - THERAPEUTIC, EUS, OR TUBE INTERVENTIONS [facility] Provider Start: 08-21-2018 Colonoscopy Cruz Prado MD Work Phone: Plan of Treatment Date Care Activity Detail Author Start: 06-01-2027 Colonoscopy COLONOSCOPY [facility] Start: 06-01-2027 COLORECTAL CANCER SCREENING COLORECTAL CANCER SCREENING [facility] Start: 06-01-2027 Screening for malignant neoplasm of colon [facility] Start: 03-13-2027 Urine microalbumin profile [facility] Start: 12-12-2026 PROSTATE CANCER SCREENING DISCUSSION PROSTATE CANCER SCREENING DISCUSSION [facility] Start: 04-01-2026 BP Controlled (<130/80) BP Controlled (<130/80) [facility] Start: 02-18-2026 BP Controlled (<130/80) BP Controlled (<130/80) [facility] Start: 01-16-2026 Annual PCP Team Chronic Disease Visit Annual PCP Team Chronic Disease Visit [facility] Start: 01-16-2026 BP Controlled (<130/80) BP Controlled (<130/80) [facility] Start: 01-16-2026 Complete blood count Hemoglobin/Hematocrit [facility] Start: 01-16-2026 Creatinine measurement Serum Creatinine [facility] Start: 01-16-2026 Depression Screening Depression Screening [facility] Start: 01-16-2026 Diabetic foot examination Diabetic Foot Exam [facility] Start: 01-16-2026 Hepatitis B screening Urine Albumin:Creatinine Ratio [facility] Start: 01-16-2026 Hepatitis B surface antibody level LDL Cholesterol [facility] Start: 01-16-2026 RSV Vaccine (1 - Risk 60-74 years 1-dose series) RSV Vaccine (1 - Risk 60-74 years 1-dose series) [facility] Comment on above: Postponed from 2013 (Insurance Cov erage) Start: 08-27-2025 End: 08-27-2025 Patient encounter procedure 08/27/2025 8:30 AM EDT Office Visit Podiatry [address] [place], [place] [phone] Ani Linares [address] [place], [place] [phone] 3 month follow up nail care and possible procedure Podiatry Comment on above: 3 month follow up nail care and possible procedure Start: 07-23-2025 End: 07-23-2025 Patient encounter procedure 07/23/2025 9:20 AM EDT Office Visit Family [facility] [address] [facility] [place] [phone] Lorie Moses APRN.[facility] [address] [place], [place] [phone] 6 month follow up Family [facility] Comment on above: 6 month follow up Start: 07-19-2025 Hemoglobin A1c measurement HbA1C [facility] Start: 07-12-2025 Annual PCP Team Chronic Disease Visit Annual PCP Team Chronic Disease Visit [facility] Start: 07-08-2025 End: 07-08-2025 ambulatory 07/08/2025 9:00 AM EDT Results Only [facility] [address] [facility] [place] [phone] [facility] Start: 07-05-2025 End: 10-04-2025 [...] deficiency anemia type Expected: 07/05/2025, Expires: 10/04/2025 [facility] Comment on above: Expected: 07/05/2025, Expires: [...] benign Mixed hyperlipidemia Expected: 07/05/2025, Expires: 10/04/2025 [facility] Comment on above: Expected: 07/05/2025, Expires: Start: 07-05-2025 End: 10-04-2025 Hemoglobin A1c in Blood HEMOGLOBIN A1C Lab Routine Type 2 diabetes mellitus with retinopathy, without long-term current use of insulin, macular edema presence unspecified, unspecified laterality, unspecified retinopathy severity (HCC) Controlled type 2 diabetes mellitus with stage 3 chronic kidney disease, without long-term current use of insulin (HCC) Expected: 07/05/2025, Expires: 10/04/2025 [facility] Comment on above: Expected: 07/05/2025, Expires: Start: 07-05-2025 End: 10-04-2025 Iron and Iron binding capacity panel - Serum or Plasma IRON AND TIBC Lab Routine Iron deficiency anemia, unspecified iron deficiency anemia type Expected: 07/05/2025, Expires: 10/04/2025 [facility] Comment on above: Expected: 07/05/2025, Expires: [...] benign Mixed hyperlipidemia Expected: 07/05/2025, Expires: 10/04/2025 [facility] Comment on above: Expected: 07/05/2025, Expires: Start: 07-01-2025 Influenza vaccination Influenza Vaccine (#1) [place] [facility] Start: 06-07-2025 Diabetic foot examination Diabetic Foot Exam [facility] Start: 06-01-2025 Glaucoma screening Dilated Retinal Exam [facility] Start: 05-28-2025 Complete blood count Hemoglobin/Hematocrit [facility] Start: 05-28-2025 Creatinine measurement Serum Creatinine [facility] Start: 05-28-2025 Hepatitis B surface antibody level LDL Cholesterol [facility] Start: 05-21-2025 Hemoglobin A1c measurement HbA1C [facility] Start: 05-02-2025 Annual PCP Team Chronic Disease Visit Annual PCP Team Chronic Disease Visit [facility] Start: 04-04-2025 BP Controlled (<130/80) BP Controlled (<130/80) [facility] Start: 03-19-2025 End: 03-19-2025 Nursing evaluation of patient and report 03/19/2025 9:15 AM EDT Nurse Visit [facility] [place] [address] [place], [place] [phone] Nurse, [place] [address] [place], [place] [phone] 2nd Shingrix [facility] [place] Comment on above: 2nd Shingrix Start: 03-17-2025 Hzv zoster vacc recombinant adjuvanted im njx ZOSTER VACCINE, RECOMBINANT (SHINGRIX) Immunization/Injection Routine Need for vaccination Expected: 03/17/2025 (Approximate) [facility] Work Phone: Comment on above: Expected: 03/17/2025 (Approximate) Start: 03-13-2025 Shingrix Vaccine (2 of 2) Shingrix Vaccine (2 of 2) [facility] Start: 01-30-2025 Annual PCP Team Chronic Disease Visit Annual PCP Team Chronic Disease Visit [facility] Start: 01-29-2025 End: 01-29-2025 Patient encounter procedure Podiatry Comment on above: Aching toe right foot big toe, Annual ex am Start: 01-17-2025 End: 04-18-2025 25-hydroxyvitamin D3 [Mass/volume] in Serum or Plasma VITAMIN D 25 HYDROXY Lab Routine Hypercalcemia Expected: 01/17/2025, Expires: 04/18/2025 [facility] Work Phone: Comment on above: Expected: 01/17/2025, Expires: Start: 01-17-2025 End: 04-18-2025 Calcium [Mass/volume] in Serum or Plasma CALCIUM, TOTAL Lab Routine Hypercalcemia Expected: 01/17/2025, Expires: 04/18/2025 [facility] Comment on above: Expected: 01/17/2025, Expires: Start: 01-17-2025 End: 04-18-2025 Parathyrin.intact [Mass/volume] in Serum or Plasma PTH INTACT Lab Routine Hypercalcemia Expected: 01/17/2025, Expires: 04/18/2025 [facility] Comment on above: Expected: 01/17/2025, Expires: Start: 01-16-2025 End: 04-17-2025 CBC W Auto Differential panel - Blood [facility] Comment on above: Expected: 01/16/2025, Expires: Start: 01-16-2025 End: 04-17-2025 Cobalamin (Vitamin B12) [Mass/volume] in Serum or Plasma [facility] Comment on above: Expected: 01/16/2025, Expires: Start: 01-16-2025 End: 04-17-2025 Comprehensive metabolic 2000 panel - Serum or Plasma [facility] Comment on above: Expected: 01/16/2025, Expires: Start: 01-16-2025 End: 04-17-2025 Hemoglobin A1c in Blood [facility] Comment on above: Expected: 01/16/2025, Expires: Start: 01-16-2025 End: 04-17-2025 Iron and Iron binding capacity panel - Serum or Plasma [facility] Comment on above: Expected: 01/16/2025, Expires: Start: 01-16-2025 End: 04-17-2025 LIPID PANEL, NONFASTING [facility] Comment on above: Expected: 01/16/2025, Expires: Start: 01-16-2025 End: 04-17-2025 Magnesium [Mass/volume] in Serum or Plasma [facility] Comment on above: Expected: 01/16/2025, Expires: Start: 01-16-2025 End: 04-17-2025 Microalbumin/Creatini ne [Mass Ratio] in Urine [facility] Comment on above: Expected: 01/16/2025, Expires: Start: 01-16-2025 End: 04-17-2025 Urinalysis complete panel - Urine [facility] Comment on above: Expected: 01/16/2025, Expires: Start: 01-16-2025 End: 01-16-2025 Patient encounter procedure [facility] Comment on above: physical Start: 12-29-2024 Annual PCP Team Chronic Disease Visit Annual PCP Team Chronic Disease Visit [facility] Start: 12-29-2024 BP Controlled (<130/80) BP Controlled (<130/80) [facility] Start: 12-29-2024 RSV Vaccine (1 - 1-dose 60+ series) RSV Vaccine (1 - 1-dose 60+ series) [facility] Comment on above: Postponed from 2013 (Insurance Cov erage) Start: 12-29-2024 RSV Vaccine (1 - Risk 60-74 years 1-dose series) RSV Vaccine (1 - Risk 60-74 years 1-dose series) [facility] Comment on above: Postponed from 2013 (Insurance Cov erage) Start: 12-29-2024 Shingrix Vaccine (1 of 2) Shingrix Vaccine (1 of 2) [facility] Comment on above: Postponed from 2003 (Insurance Cov erage) Start: 11-29-2024 Annual PCP Team Chronic Disease Visit Annual PCP Team Chronic Disease Visit [facility] Start: 11-28-2024 Hemoglobin A1c measurement HbA1C [facility] Start: 11-25-2024 Complete blood count Hemoglobin/Hematocrit [facility] Start: 11-25-2024 Creatinine measurement Serum Creatinine [facility] Start: 11-25-2024 Hepatitis B screening Urine Albumin:Creatinine Ratio [facility] Start: 11-25-2024 Hepatitis B surface antibody level LDL Cholesterol [facility] Start: 11-20-2024 End: 02-19-2025 Hemoglobin A1c in Blood HEMOGLOBIN A1C Lab Routine Controlled type 2 diabetes mellitus with stage 3 chronic kidney disease, without long-term current use of insulin (HCC) Expected: 11/20/2024, Expires: 02/19/2025 [facility] Work Phone: Comment on above: Expected: 11/20/2024, Expires: 5 Start: 10-31-2024 Advance Directive Discussion Advance Directive Discussion [facility] Start: 10-30-2024 Behavioral Health Screening Behavioral Health Screening [facility] Comment on above: Postponed from 10/31/2023 (Declined at t his time) Start: 10-30-2024 Depression Assessment Depression Assessment [facility] Comment on above: Postponed from 10/31/2023 (Declined at t his time) Start: 10-22-2024 End: 01-21-2025 Hemoglobin A1c in Blood HEMOGLOBIN A1C Lab Routine Controlled type 2 diabetes mellitus with stage 3 chronic kidney disease, without long-term current use of insulin (HCC) Expected: 10/22/2024, Expires: 01/21/2025 [facility] Work Phone: Comment on above: Expected: 10/22/2024, Expires: Start: 09-27-2024 Annual PCP Team Chronic Disease Visit Annual PCP Team Chronic Disease Visit [facility] Start: 09-27-2024 Covid-19 Vaccine () Covid-19 Vaccine () [facility] Comment on above: Postponed from 07/01/2023 (Declined at t his time) Start: 09-01-2024 Annual PCP Team Chronic Disease Visit Annual PCP Team Chronic Disease Visit [facility] Start: 08-16-2024 3 comp foot exam completed Diabetic Foot Exam [facility] Start: 08-16-2024 Diabetic foot examination Diabetic Foot Exam [facility] Start: 08-05-2024 BP Controlled (<130/80) BP Controlled (<130/80) [facility] Start: 08-04-2024 Annual PCP Team Chronic Disease Visit Annual PCP Team Chronic Disease Visit [facility] Start: 07-06-2024 End: 07-06-2024 Patient encounter procedure 07/06/2024 9:40 AM EDT Office Visit [facility] [place] [address] [place] [address] Lorie Moses APRN.OFFICE ADMIN [address] [place] [address] 6 month follow up [facility] [place] Comment on above: 6 month follow up Start: 07-01-2024 Covid-19 Vaccine ( season) Covid-19 Vaccine () [facility] Start: 07-01-2024 Covid-19 Vaccine () Covid-19 Vaccine () [facility] Start: 07-01-2024 Influenza vaccination Influenza Vaccine (#1) [facility] Start: 06-18-2024 End: 06-18-2024 Patient encounter procedure 06/18/2024 8:50 AM EDT Office Visit Gastroenterology [facility] [address] [place] [id number] Cheryle Acosta PA-C [address] [place], [place] [phone] Irritable bowel syndrome with both constipation and diarrhea [K58.2] [facility] Comment on above: Irritable bowel syndrome with both const ipation and diarrhea [K58.2] Start: 06-07-2024 End: 06-07-2024 Patient encounter procedure 06/07/2024 8:45 AM EDT Office Visit Podiatry [address] [place], [place] [phone] Ani Linares [address] [place] [address] 6 week follow up diabetic foot Podiatry Comment on above: 6 week follow up diabetic foot Start: 05-25-2024 Hemoglobin A1c measurement HbA1C [facility] Start: 05-13-2024 3 comp foot exam completed DIABETIC FOOT EXAM [facility] Start: 05-13-2024 ANNUAL PCP TEAM CHRONIC DISEASE VISIT ANNUAL PCP TEAM CHRONIC DISEASE VISIT [facility] Start: 05-13-2024 BP CONTROLLED (<130/80) BP CONTROLLED (<130/80) [facility] Start: 05-09-2024 HEMOGLOBIN/HEMATOCRIT HEMOGLOBIN/HEMATOCRIT [facility] Start: 05-09-2024 Hepatitis B surface antibody level LDL CHOLESTEROL [facility] Start: 05-09-2024 SERUM CREATININE SERUM CREATININE [facility] Start: 05-02-2024 End: 05-02-2024 Patient encounter procedure 05/02/2024 9:20 AM EDT Office Visit [facility] [address] [place] [address] Cruz Prado MD [address] [place] [address] IBS issues [facility] Comment on above: IBS issues Start: 04-26-2024 End: 04-26-2024 Patient encounter procedure 04/26/2024 9:45 AM EDT Office Visit Podiatry [address] [place], [place] [phone] Ani Linares [address] [place] [address] maddy foot diabetic follow up Podiatry Comment on above: maddy foot diabetic follow up Start: 02-04-2024 Glaucoma screening Dilated Retinal Exam [facility] Start: 02-04-2024 Hepatitis C antibody, confirmatory test DILATED RETINAL EXAM [facility] Start: 01-22-2024 ANNUAL PCP TEAM CHRONIC DISEASE VISIT ANNUAL PCP TEAM CHRONIC DISEASE VISIT [facility] Start: 01-22-2024 BP CONTROLLED (<130/80) BP CONTROLLED (<130/80) [facility] Start: 01-09-2024 BP CONTROLLED (<130/80) BP CONTROLLED (<130/80) [facility] Start: 12-09-2023 ANNUAL PCP TEAM CHRONIC DISEASE VISIT ANNUAL PCP TEAM CHRONIC DISEASE VISIT [facility] Start: 12-09-2023 BP CONTROLLED (<130/80) BP CONTROLLED (<130/80) [facility] Start: 11-09-2023 Hemoglobin A1c/Hemoglobin.total in Blood HBA1C [facility] Start: 10-31-2023 Depression Assessment Depression Assessment [facility] Start: 10-13-2023 ANNUAL PCP TEAM CHRONIC DISEASE VISIT ANNUAL PCP TEAM CHRONIC DISEASE VISIT [facility] Start: 10-13-2023 BP CONTROLLED (<130/80) BP CONTROLLED (<130/80) [facility] Start: 10-13-2023 COVID-19 VACCINE (3 - Booster for Pfizer series) COVID-19 VACCINE (3 - Booster for Pfizer series) [facility] Comment on above: Postponed from 03/28/2021 (Declined at t his time) Start: 10-13-2023 COVID-19 VACCINE (3 - Pfizer series) COVID-19 VACCINE (3 - Pfizer series) [facility] Comment on above: Postponed from 03/28/2021 (Declined at t his time) Start: 10-13-2023 SHINGRIX VACCINE (1 of 2) SHINGRIX VACCINE (1 of 2) [facility] Comment on above: Postponed from 2003 (Declined at t his time) Start: 09-29-2023 HEMOGLOBIN/HEMATOCRIT HEMOGLOBIN/HEMATOCRIT [facility] Start: 09-29-2023 Hepatitis B screening URINE ALBUMIN:CREATININE RATIO [facility] Start: 09-29-2023 Hepatitis B surface antibody level LDL CHOLESTEROL [facility] Start: 09-29-2023 SERUM CREATININE SERUM CREATININE [facility] Start: 08-21-2023 Colonoscopy COLONOSCOPY [facility] Start: 08-21-2023 COLORECTAL CANCER SCREENING COLORECTAL CANCER SCREENING [facility] Start: 07-09-2023 ANNUAL PCP TEAM CHRONIC DISEASE VISIT ANNUAL PCP TEAM CHRONIC DISEASE VISIT [facility] Start: 07-01-2023 Covid-19 Vaccine ( season) Covid-19 Vaccine ( season) [facility] Start: 07-01-2023 Influenza vaccination INFLUENZA (#1) [facility] Start: 05-26-2023 HEMOGLOBIN/HEMATOCRIT HEMOGLOBIN/HEMATOCRIT [facility] Start: 05-12-2023 ANNUAL PCP TEAM CHRONIC DISEASE VISIT ANNUAL PCP TEAM CHRONIC DISEASE VISIT [facility] Start: 04-02-2023 Hepatitis B screening URINE ALBUMIN:CREATININE RATIO [facility] Start: 04-02-2023 Hepatitis B surface antibody level LDL CHOLESTEROL [facility] Start: 04-02-2023 SERUM CREATININE SERUM CREATININE [facility] Start: 04-01-2023 End: 06-01-2023 Basic metabolic 2000 panel - Serum or Plasma BASIC METABOLIC PNL Lab Routine Controlled type 2 diabetes mellitus with stage 3 chronic kidney disease, without long-term current use of insulin (HCC) Type 2 diabetes mellitus with retinopathy, without long-term current use of insulin, macular edema presence unspecified, unspecified laterality, unspecified retinopathy severity (HCC) Expected: 04/01/2023, Expires: 06/01/2023 [facility] Work Phone: Comment on above: Expected: 04/01/2023, [...] retinopathy severity (HCC) Expected: 04/01/2023, Expires: 06/01/2023 [facility] Work Phone: Comment on above: Expected: 04/01/2023, [...] retinopathy severity (HCC) Expected: 04/01/2023, Expires: 06/01/2023 [facility] Work Phone: Comment on above: Expected: 04/01/2023, [...] benign Mixed hyperlipidemia Expected: 04/01/2023, Expires: 06/01/2023 [facility] Work Phone: Comment on above: Expected: 04/01/2023, Expires: 3 Start: 03-29-2023 Hemoglobin A1c/Hemoglobin.total in Blood HBA1C [facility] Start: 03-16-2023 ANNUAL PCP TEAM CHRONIC DISEASE VISIT ANNUAL PCP TEAM CHRONIC DISEASE VISIT [facility] Start: 02-02-2023 3 comp foot exam completed DIABETIC FOOT EXAM [facility] Start: 01-05-2023 Hepatitis C antibody, confirmatory test DILATED RETINAL EXAM [facility] Start: 12-30-2022 PNEUMOCOCCAL: 65+ (3 - PPSV23 if available, else PCV20) PNEUMOCOCCAL: 65+ (3 - PPSV23 if available, else PCV20) [facility] Start: 12-30-2022 PNEUMOCOCCAL: 65+ (3 - PPSV23 or PCV20) PNEUMOCOCCAL: 65+ (3 - PPSV23 or PCV20) [facility] Start: 12-30-2022 PNEUMOVAX AGE 65 AND OVER WITH 5YR LOOKBACK (#1) PNEUMOVAX AGE 65 AND OVER WITH 5YR LOOKBACK (#1) [facility] Start: 12-14-2022 End: 12-28-2022 Influenza virus A and B RNA and SARS-CoV-2 (COVID-19) N gene panel - Respiratory specimen by CHRISTA with probe detection [facility] Work Phone: Comment on above: Expected: 12/14/2022, Expires: 3 Start: 12-12-2022 HEMOGLOBIN/HEMATOCRIT HEMOGLOBIN/HEMATOCRIT [facility] Start: 11-06-2022 ANNUAL PCP TEAM CHRONIC DISEASE VISIT ANNUAL PCP TEAM CHRONIC DISEASE VISIT [facility] Start: 11-06-2022 Hepatitis B surface antibody level LDL CHOLESTEROL [facility] Start: 11-06-2022 SERUM CREATININE SERUM CREATININE [facility] Start: 10-31-2022 ADVANCE DIRECTIVE DISCUSSION ADVANCE DIRECTIVE DISCUSSION [facility] Start: 10-31-2022 DEPRESSION ASSESSMENT DEPRESSION ASSESSMENT [facility] Start: 10-02-2022 Hemoglobin A1c/Hemoglobin.total in Blood HBA1C [facility] Start: 08-23-2022 End: 10-23-2022 ALBUMIN/CREAT RATIO RND UR ALBUMIN/CREAT RATIO RND UR Lab Routine Controlled type 2 diabetes mellitus with stage 3 chronic kidney disease, without long-term current use of insulin (HCC) Expected: 08/23/2022, Expires: 10/23/2022 [facility] Work Phone: Comment on above: Expected: 08/23/2022, Expires: 2 Start: 08-23-2022 End: 10-23-2022 CBC W Auto Differential panel - Blood CBC + DIFF Lab Routine Controlled type 2 diabetes mellitus with stage 3 chronic kidney disease, without long-term current use of insulin (HCC) Iron deficiency anemia, unspecified iron deficiency anemia type Expected: 08/23/2022, Expires: 10/23/2022 [facility] Work Phone: Comment on above: Expected: 08/23/2022, Expires: 2 Start: 08-23-2022 End: 10-23-2022 Cobalamin (Vitamin B12) [Mass/volume] in Serum or Plasma VITAMIN B12 BLOOD Lab Routine Gastroesophageal reflux disease with esophagitis without hemorrhage Medication management Expected: 08/23/2022, Expires: 10/23/2022 [facility] Work Phone: Comment on above: Expected: 08/23/2022, [...] retinopathy severity (HCC) Expected: 08/23/2022, Expires: 10/23/2022 [facility] Work Phone: Comment on above: Expected: 08/23/2022, [...] retinopathy severity (HCC) Expected: 08/23/2022, Expires: 10/23/2022 [facility] Work Phone: Comment on above: Expected: 08/23/2022, Expires: 2 Start: 08-23-2022 End: 10-23-2022 Iron and Iron binding capacity panel - Serum or Plasma IRON + TIBC Lab Routine Iron deficiency anemia, unspecified iron deficiency anemia type Expected: 08/23/2022, Expires: 10/23/2022 [facility] Work Phone: Comment on above: Expected: 08/23/2022, [...] retinopathy severity (HCC) Expected: 08/23/2022, Expires: 10/23/2022 [facility] Work Phone: Comment on above: Expected: 08/23/2022, Expires: 2 Start: 08-23-2022 End: 10-23-2022 Magnesium [Mass/volume] in Serum or Plasma MAGNESIUM BLD Lab Routine Gastroesophageal reflux disease with esophagitis without hemorrhage Medication management Expected: 08/23/2022, Expires: 10/23/2022 [facility] Work Phone: Comment on above: Expected: 08/23/2022, [...] retinopathy severity (HCC) Expected: 08/23/2022, Expires: 10/23/2022 [facility] Work Phone: Comment on above: Expected: 08/23/2022, Expires: 2 Start: 07-08-2022 End: 07-22-2022 Influenza virus A and B RNA and SARS-CoV-2 (COVID-19) N gene panel - Respiratory specimen by CHRISTA with probe detection COVID WITH FLUA+B, ROUTINE Microbiology Routine Sinus congestion Acute upper respiratory infection, unspecified Expected: 07/08/2022, Expires: 07/22/2022 [facility] Work Phone: Comment on above: Expected: 07/08/2022, Expires: 2 Start: 07-01-2022 Influenza vaccination INFLUENZA (#1) [facility] Start: 05-20-2022 SHINGRIX VACCINE (1 of 2) SHINGRIX VACCINE (1 of 2) [facility] Comment on above: Postponed from 2003 (Insurance Cov erage) Start: 05-12-2022 End: 07-12-2022 CBC W Auto Differential panel - Blood CBC + DIFF Lab Routine Burning sensation of foot Numbness and tingling of foot Expected: 05/12/2022, Expires: 07/12/2022 [facility] Work Phone: Comment on above: Expected: 05/12/2022, Expires: 2 Start: 05-12-2022 End: 07-12-2022 Cobalamin (Vitamin B12) [Mass/volume] in Serum or Plasma VITAMIN B12 BLOOD Lab Routine Burning sensation of foot Numbness and tingling of foot Expected: 05/12/2022, Expires: 07/12/2022 [facility] Work Phone: Comment on above: Expected: 05/12/2022, Expires: 2 Start: 05-12-2022 End: 07-12-2022 Folate [Mass/volume] in Serum or Plasma FOLATE SERUM Lab Routine Burning sensation of foot Numbness and tingling of foot Expected: 05/12/2022, Expires: 07/12/2022 [facility] Work Phone: Comment on above: Expected: 05/12/2022, Expires: 2 Start: 05-12-2022 End: 07-12-2022 Thyrotropin [Units/volume] in Serum or Plasma TSH BLD Lab Routine Burning sensation of foot Numbness and tingling of foot Expected: 05/12/2022, Expires: 07/12/2022 [facility] Work Phone: Comment on above: Expected: 05/12/2022, Expires: 2 Start: 05-12-2022 End: 07-12-2022 Thyroxine (T4) free [Mass/volume] in Serum or Plasma T4 FREE/FREE THYROX Lab Routine Burning sensation of foot Numbness and tingling of foot Expected: 05/12/2022, Expires: 07/12/2022 [facility] Work Phone: Comment on above: Expected: 05/12/2022, Expires: 2 Start: 05-06-2022 Hemoglobin A1c/Hemoglobin.total in Blood HBA1C [facility] Start: 03-16-2022 End: 05-16-2022 ALBUMIN/CREAT RATIO RND UR ALBUMIN/CREAT RATIO RND UR Lab Routine Controlled type 2 diabetes mellitus with stage 3 chronic kidney disease, without long-term current use of insulin (HCC) Expected: 03/16/2022, Expires: 05/16/2022 [facility] Work Phone: Comment on above: Expected: 03/16/2022, Expires: 2 Start: 03-16-2022 End: 05-16-2022 Comprehensive metabolic 2000 panel - Serum or Plasma COMP METABOLIC PANEL Lab Routine Essential hypertension, benign Controlled type 2 diabetes mellitus with stage 3 chronic kidney disease, without long-term current use of insulin (HCC) Expected: 03/16/2022, Expires: 05/16/2022 [facility] Work Phone: Comment on above: Expected: 03/16/2022, Expires: 2 Start: 03-16-2022 End: 05-16-2022 Hemoglobin A1c/Hemoglobin.total in Blood HGB A1C Lab Routine Controlled type 2 diabetes mellitus with stage 3 chronic kidney disease, without long-term current use of insulin (HCC) Expected: 03/16/2022, Expires: 05/16/2022 [facility] Work Phone: Comment on above: Expected: 03/16/2022, Expires: 2 Start: 03-16-2022 End: 05-16-2022 LIPID PANEL, NONFASTING LIPID PANEL, NONFASTING Lab Routine Mixed hyperlipidemia Expected: 03/16/2022, Expires: 05/16/2022 [facility] Work Phone: Comment on above: Expected: 03/16/2022, Expires: 2 Start: 03-16-2022 End: 05-16-2022 Urinalysis complete panel - Urine URINALYSIS, WITH MICROSCOPIC Lab Routine Essential hypertension, benign Controlled type 2 diabetes mellitus with stage 3 chronic kidney disease, without long-term current use of insulin (HCC) Expected: 03/16/2022, Expires: 05/16/2022 [facility] Work Phone: Comment on above: Expected: 03/16/2022, Expires: 2 Start: 02-16-2022 Hepatitis B screening URINE ALBUMIN:CREATININE RATIO [facility] Start: 02-03-2022 Hepatitis C antibody, confirmatory test DILATED RETINAL EXAM [facility] Start: 02-02-2022 3 comp foot exam completed DIABETIC FOOT EXAM [facility] Start: 10-31-2021 ADVANCE DIRECTIVE DISCUSSION ADVANCE DIRECTIVE DISCUSSION [facility] Start: 10-31-2021 DEPRESSION ASSESSMENT DEPRESSION ASSESSMENT [facility] Start: 07-03-2021 COVID-19 VACCINE (3 - Booster for Pfizer series) COVID-19 VACCINE (3 - Booster for Pfizer series) [facility] Start: 03-28-2021 COVID-19 VACCINE (3 - Booster for Pfizer series) COVID-19 VACCINE (3 - Booster for Pfizer series) [facility] Start: 2013 Hepatitis B Vaccine (1 of 3 - Risk 3-dose series) Hepatitis B Vaccine (1 of 3 - Risk 3-dose series) [facility] Start: 2013 RSV Vaccine (1 - 1-dose 60+ series) RSV Vaccine (1 - 1-dose 60+ series) [facility] Start: 2013 RSV Vaccine (1 - Risk 60-74 years 1-dose series) RSV Vaccine (1 - Risk 60-74 years 1-dose series) [facility] Start: 2003 SHINGRIX VACCINE (1 of 2) SHINGRIX VACCINE (1 of 2) [facility] Start: 1998 COLOGUARD (FIT-DNA) COLOGUARD (FIT-DNA) [facility] Start: [address] COLONOGRAPHY [facility] Start: 1998 FECAL OCCULT BLOOD FECAL OCCULT BLOOD [facility] Start: 1998 Screening for malignant neoplasm of colon [facility] Start: 1998 SIGMOIDOSCOPY SIGMOIDOSCOPY [facility] Start: 1971 BP CONTROLLED (<130/80) BP CONTROLLED (<130/80) [facility] Start: 1971 Depression Screening Depression Screening [facility] Patient Education [facility] Work Phone: Patient referral [facility] Work Phone: End: 03-16-2023 Polysomnogram POLYSOMNOGRAM (PSG) Procedures Routine Hypersomnia Fatigue, unspecified type Snoring 1 Occurrences starting 03/16/2022 until 03/16/2023 [facility] Work Phone: Comment on above: 1 Occurrences starting 03/16/2022 until 03/16/2023 PT PLAN OF CARE CERTIFICATION PT PLAN OF CARE CERTIFICATION Procedures Routine Pain in both lower extremities Greater trochanteric bursitis of both hips Acute midline low back pain without sciatica Muscle weakness of lower extremity Ordered: 01/11/2023 [facility] Work Phone: Comment on above: Ordered: 01/11/2023 PT PLAN OF CARE CERTIFICATION PT PLAN OF CARE CERTIFICATION Procedures Routine Pain in both lower extremities Greater trochanteric bursitis of both hips Acute midline low back pain without sciatica Muscle weakness of lower extremity Ordered: 02/16/2023 [facility] Work Phone: Comment on above: Ordered: 02/16/2023 End: 05-12-2023 PVR LEG W/EXC [facility] PVR LEG W/EXC [facility] Vascular Lab Routine Burning sensation of foot Numbness and tingling of foot Pain in both lower extremities Foot pain, bilateral 1 Occurrences starting 05/12/2022 until 05/12/2023 [facility] Work Phone: Comment on above: 1 Occurrences starting 05/12/2022 until 05/12/2023 SURGICAL PATHOLOGY SURGICAL PATH OLOGY Lab Routine Abdominal pain, unspecified abdominal location History of colon polyps Matthew's esophagus with dysplasia Release Upon Ordering for 1 Occurrences starting 06/01/2022 [facility] Work Phone: Comment on above: Release Upon Ordering for 1 Occurrences starting 06/01/2022 End: 10-13-2023 US LEG VEIN DVT [facility] US LEG VEIN DVT [facility] Vascular Lab Routine Pain in both lower extremities 1 Occurrences starting 10/13/2022 until 10/13/2023 [facility] Work Phone: Comment on above: 1 Occurrences starting 10/13/2022 until 10/13/2023 End: 02-28-2026 XR Foot - right AP and Lateral and oblique XR FOOT GENERAL 3V AP/LAT/OBL RIGHT Radiology Routine Arthritis of joint of toe Callus of foot 1 Occurrences starting 01/29/2025 until 02/28/2026 [facility] Work Phone: Comment on above: 1 Occurrences starting 01/29/2025 until 02/28/2026 [facility] Immunizations Immunization Date Immunization Notes Care Provider Jordan klein 03-19-2025 zoster vaccine recombinant Cruz Prado MD Work Phone: [facility] 01-16-2025 zoster vaccine recombinant Cruz Prado MD Work Phone: [facility] 09-14-2024 influenza, seasonal, injectable, preservative free Dr. Cruz Prado MD Work Phone: [facility] 09-14-2024 influenza virus vacc ine, unspecified formulation Ani Linares Work Phone: [facility] 08-17-2024 Hepatitis B vaccine (recombinant), CpG adjuvanted Dr. Cruz Prado MD Work Phone: [facility] 07-10-2024 influenza, high dose seasonal, preservative-free Cruz Prado MD Work Phone: [facility] 07-09-2024 Hepatitis B vaccine (recombinant), CpG adjuvanted Anette Arreola PA-C Work Phone: [facility] 08-04-2023 influenza (HD-IIV4) vaccine, age 65+ yr, high dose, quadrivalent, PF (FLUZONE HIGH-DOSE) Anette Arreola PA-C Work Phone: [facility] 08-04-2023 influenza virus vacc ine, unspecified formulation Cruz Prado MD Work Phone: [facility] 01-21-2023 pneumococcal (PCV20) vaccine, 20 valent (PREVNAR 20) Milind Denis MA [facility] 10-13-2022 influenza, high-dose , quadrivalent vaccine (FLUZONE HIGH DOSE QUADRIVALENT) Cruz Prado MD Work Phone: [facility] 11-06-2021 influenza, high-dose , quadrivalent vaccine (FLUZONE HIGH DOSE QUADRIVALENT) Cruz Prado MD Work Phone: [facility] 01-31-2021 COVID-19 vaccine, ag e 12+ yr (PFIZER-BIONTECH - PURPLE TOP) Cruz Prado MD Work Phone: [facility] 01-10-2021 COVID-19 vaccine, ag e 12+ yr (PFIZER-BIONTECH - PURPLE TOP) Cruz Prado MD Work Phone: [facility] 07-31-2020 influenza, seasonal, injectable Cruz Prado MD Work Phone: [facility] 08-22-2019 influenza, high dose seasonal, preservative-free Cruz Prado MD Work Phone: [facility] 04-13-2019 pneumococcal conjuga te vaccine, 13 valent Cruz Prado MD Work Phone: [facility] 09-05-2018 hepatitis A vaccine, adult dosage Cruz Prado MD Work Phone: [facility] 08-17-2018 influenza, injectabl e, quadrivalent, contains preservative Cruz Prado MD Work Phone: [facility] 12-30-2017 pneumococcal polysaccharide vaccine, 23 valent Cruz Prado MD Work Phone: [facility] 09-28-2017 influenza, injectabl e, quadrivalent, contains preservative Cruz Prado MD Work Phone: [facility] 03-13-2017 tetanus toxoid, redu mireya diphtheria toxoid, and acellular pertussis vaccine, adsorbed Cruz Prado MD Work Phone: [facility] 09-03-2015 influenza, seasonal, injectable Cruz Prado MD Work Phone: [facility] 09-11-2009 novel influenza-H1N1 -09, preservative-free, injectable Cruz Prado MD Work Phone: [facility] [facility] Payers Date Payer Category Payer Self-pay [id number] 2024 Private Health Insurance [id number] 2024 Unknown [id number] 2020 Unknown MMO MMO [employer] PLUS [id number] 2020-Present [phone] [address] [place] [address] PPO [id number] 2020 Unknown [id number] 2018 Medicare [id number] 1998 Unknown Unknown [id number] 62 Unknown [id number] 62 Unknown [id number] 62 Unknown [id number] 62 Unknown [id number] [id number] 62 Unknown [id number] [id number] 62 Unknown [id number] [id number] 62 Unknown [id number] 62 Unknown [id number] [id number] 62 Unknown [id number] [id number] 62 Unknown [id number] [id number] 62 Unknown [id number] 62 Unknown [id number] 62 Social History Date Type Detail Facility Start: 03-23-2016 End: 05-28-2025 Tobacco smoking status NHIS Ex-smoker [facility] Start: 03-23-2016 End: 07-08-2022 Tobacco use and exposure Smokeless tobacco non-user [facility] Start: 12-14-2021 End: 05-27-2025 Alcohol intake Current drinker of alcohol (finding) [facility] Start: 07-06-2018 History SDOH Alcohol Comment seldom beer [facility] Start: 10-02-2018 End: 07-08-2022 Tobacco Comment quit around 1983 [facility] Start: 1955 Sex Assigned At Not on file C [facility] Start: 09-18-2020 End: 07-19-2022 Exposure to SARS-CoV-2 (event) Not sure [facility] Start: 02-03-2022 End: 06-20-2023 Tobacco smoking status NHIS Unknown if ever smoked [facility] Start: 1955 Sex Assigned At Male [facility] History of tobacco use Current smoker [facility] Work Phone: Start: 08-21-2018 Alcohol intake 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 non-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 of alcohol (finding) [facility] Start: 03-02-2023 End: 05-13-2023 History of Social function [facility] [employer] [facility] Work Phone: Start: 03-02-2023 End: 05-13-2023 Tobacco use panel [facility] Work Phone: Adult Depression Scr eening Assessment 0 [facility] Work Phone: Has the [employer], [employer], or [employer] threatened to shut off services in your home in past 12Mo No [facility] Do you belong to any clubs or organizations such as mandaeism groups, unions, fraternal or athletic groups, or school groups? Yes [facility] Are you now , , , , never or living with a partner? [facility] How often to you hav e a drink containing alcohol? Never [facility] Do you feel stress - tense, restless, nervous, or anxious, or unable to sleep at night because your mind is troubled all the time - these days [OSQ] To some extent [facility] (I/We) worried whejosue er (my/our) food would run out before (I/we) got money to buy more. Never true [facility] Medical Equipment Procedure Code Equipment Code Equipment Origin al Text Equipment Identifier Dates [id number], [id number], [id number], [id number], [id number], [id number], [id number], [id number] Start: 12-05-2019 End: 10-29-2024 Comment on above: [...] 12:35 PM EDT Julissa Farrell RN No [facility] 02-03-2019 Are you blind, or do you have serious difficulty seeing, even when wearing glasses No 02/03/2019 12:35 PM EDT Julissa Farrell, PATEL [facility] 02-03-2019 Do you have serious difficulty walking or climbing stairs No 02/03/2019 12:35 PM EDT Julissa Farrell RN [facility] 02-03-2019 Do you have difficul ty dressing or bathing No 02/03/2019 12:35 PM EDT Julissa Farrell, PATEL [facility] 02-03-2019 Because of a physica l, mental, or emotional condition, do you have difficulty doing errands alone such as visiting a physician's office or shopping No 02/03/2019 12:35 PM Julissa Lei RN [facility] Mental Status Date Assessment Result Facility 02-03-2019 Because of a physica l, mental, or emotional condition, do you have serious difficulty concentrating, remembering, or making decisions No 02/03/2019 12:35 PM EDJulissa Dominguez RN No [facility] Clinical Notes 12-15-2018 to 08-05-2025 Note Date & Type Note Facility 08-05-2025 Note HNO ID: [id number] Author: CRUZ PRADO MD Service: ? Author [...] disease, without long-term current use of insulin ([facility]) 02/24/2019 Decreased libido 01/30/2018 Degenerative retinal drusen [...] 02/24/2019 Lumbar spinal stenosis 05/18/2023 MRI 02/2023- [facility] Malignant melanoma of torso excluding breast [...] Senile nuclear scl (more content not included)... [facility] 07-30-2025 Note HNO ID: [id number] Author: LURDES HERNANDEZ MA Service: ? Author Type: Wave Solder Offbearer Type: Progress Notes Filed: 07/30/2025 08:56 Note Text: Scan on 07/29/2025 4:38 PM by Provider, External, PA-C: [facility] 07-29-2025 Progress note [facility] 07-29-2025 Progress note Note Date/Time July 29, 2025 3:14pm [facility] [address] [place] [address] OFFICE VISIT Date of Service: 07/29/25 MR#: [id number] Acct: [id number] Name: DAR ROSE Rep #: [id number] : 1955 Provider: AKOSUA Zambrano Age/Sex: 69/M Location: [facility] Status: Signed Intake Vital Signs 04/29/25 09:03 [...] you fallen in the past year?: No [facility] Medical History (Updated 05/28/25 @ 09:21 by [...] statin. He has labs ordered through the [facility], he intends to have these done [...] diabetes mellitus: Status: Chronic Qualifiers: Diabetes mellitus terminal carman insulin use: without terminal carman use Diabetesmellitus complication status: without complication Qualified [...] current use of insulin E11.9 Diabetes mellitus correction insulin use: without correction use Diabetes mellitus complication status: without complication [...] by Whit GAYTANC> Date _ Whit Zambrano LEATHER SKINNER-C Cosigner Signature: Date (if applicable) CC: Dr. Cruz Prado MD ~ [facility] Work Phone: 1(875) 576-326208-01-2025 Telephone encounter Note* Telephone Encounter - Raul Domingo LPN - 05/31/2025 1:42 PM EDT Spoke with pt and advised him word for word of Dr Prado's message. Pt verbalizes understanding. Raul Domingo LPN [facility]08-01-2025 Miscellaneous Notes* Telephone Encounter - Raul [...] to run it by their training and quality manager first. The following approved medication requests have [...] week left of that medication Pharmacy is [facility] please send new Rx's to that pharmacy Patient has been identified by name and birthdate. Duration of symptoms: N/A Person calling: self Call patient at: on cell [phone] (home) [phone] (cell) Was an appointment scheduled: No Closing statement: Results or non-symptom based questions: Thank you for calling [facility], your call will be returned within the next business day. Rain Anguianoc documented in this encounterGrand Lake [facility] Telephone encounter Note * Telephone Encounter [...] to run it by their training and quality manager first. The following approved medication requests have [...] Curly Mireles Authorizing Provider: CRUZ PRADO MD [facility]07-31-2025 Telephone encounter Note* Telephone Encounter - [...] Soriano LPN May 30, 2025 1:08 PM [facility]07-31-2025 Telephone encounter Note* Telephone Encounter - [...] week left of that medication Pharmacy is [facility] please send new Rx's to that pharmacy Patient has been identified by name and birthdate. Duration of symptoms: N/A Person calling: self Call patient at: on cell [phone] (home) [phone] (cell) Was an appointment scheduled: No Closing statement: Results or non-symptom based questions: Thank you for calling [facility], your call will be returned within the next business day. Rain Booth [facility]07-28-2025 NoteHNO ID: [id number] Author: ANI LINARES, ? Service: ? Author [...] of both eyes 05/30/2015 Diabetic eye exam ([facility]) 03/18/2022 Last done 01/05/22 Non-Proliferative Diabetic Retinopathy [...] 02/24/2019 Lumbar spinal stenosis 05/18/2023 MRI 02/2023- [facility] Malignant melanoma of torso excluding breast ([facility]) 02/11/2020 Metabolic dysfunction-associated steatohepatitis (MASH) 10/17/2024 US with elstography 09/2024 was F2-F3, seeing ? Mixed hyperlipidemia 03/20/2013 Nuclear sclerotic cataract of both eyes 05/30/2015 Pain in both lower extremities 10/13/2022 Peripheral retinal degeneration, paving stone, bilateral 09/09/2017 Peripheral sensory neuropathy due to type 2 diabetes mellitus ([facility]) 08/30/2022 Post-COVID chronic fatigue 09/22/2023 Along with HS's and body aches: Has FMLA for Posterior vitreous detachment of left eye 08/31/2016 Posterior vitreous detachment of right eye 09/09/2017 Renal cyst, right 08/10/2021 Simple, benign US 07/2021 Retinopathy 03/19/2022 Mild B/l Rotator cuff tear, left Senile nuclear sclerosis 05/17/2017 Senile nuclear sclerosis, bilateral 09/09/2017 Stage 3a chronic kidney disease ([facility]) 07/12/2024 SVT (supraventricular tachycardia) ([facility]) 05/20/2021 Treated with Ablation: 2014 Tinnitus of both ears 12/30/2023 Type 2 diabetes mellitus with retinopathy, without long-term current use of insulin ([facility]) 09/09/2017 Uncontrolled type 2 diabetes mellitus with [...] mg (65 mg i (more content not included)...[facility]07-28-2025 History of Present illness Narrative* Ani Linares [...] disease, without long-term current use of insulin ([facility]) 02/24/2019 Decreased libido 01/30/2018 Degenerative retinal drusen [...] 02/24/2019 Lumbar spinal stenosis 05/18/2023 MRI 02/2023- [facility] Malignant melanoma of torso excluding breast (HCC) 02/11/2020 Metabolic dysfunction-associated steatohepatitis (MASH) 10/17/2024 US with elstography 09/2024 was F2-F3, seeing ? Mixed hyperlipidemia 03/20/2013 Nuclear sclerotic cataract of both eyes 05/30/2015 Pain in both lower extremities 10/13/2022 Peripheral retinal degeneration, paving stone, bilateral 09/09/2017 Peripheral sensory neuropathy due to type 2 diabetes mellitus ([facility]) 08/30/2022 Post-COVID chronic fatigue 09/22/2023 Along with HS's and body aches: Has FMLA for Posterior vitreous detachment of left eye 08/31/2016 Posterior vitreous detachment of right eye 09/09/2017 Renal cyst, right 08/10/2021 Simple, benign US 07/2021 Retinopathy 03/19/2022 Mild B/l Rotator cuff tear, left Senile nuclear sclerosis 05/17/2017 Senile nuclear sclerosis, bilateral 09/09/2017 Stage 3a chronic kidney disease ([facility]) 07/12/2024 SVT (supraventricular tachycardia) ([facility]) 05/20/2021 Treated with Ablation: 2013 Tinnitus of both ears 12/30/2023 Type 2 diabetes mellitus with retinopathy, without long-term current use of insulin ([facility]) 09/09/2017 Uncontrolled type 2 diabetes mellitus with [...] follow-up in 3 months Recording using ambient [employer] software for draft documentation of the visit was discussed with the patient/authorized outside dealer sales representative; all questions welcomed and answered. Patient/authorized outside dealer sales representative agreed to proceed Ani Linares DPM [...] toe tip. ROBSON 01/29/25 documented in this encounterGrand Lake [facility]07-[facility] Instructions* Patient Instructions* Ani Linares - [...] (or decreased sensation in your feet) a screen repairer crusher should always cut your toenails. Be Careful [...] Go to your health care provider or screen repairer crusher to treat these conditions. Powerstep Original Full length. Can purchase at [facility] [employer] and boots,shoes and more here in [place], [employer] in [place] or [place]. Also can find in [place] in [facility]. Powersteps can also be purchased online, starting [...] everything fits well together documented in this encounterGrand Lake [facility]07-28-2025 NoteHNO ID: [id number] Author: IZABELA GARCIA RN Service: ? Author [...] pain, bruising noted to toe tip. [place] 01/29/25[facility]06-30-20[facility] Evaluation note* Diagnosis Onset Date Resolution Status [...] diabetes mellitus chronic July 29, 2025 2:38pm [place] [employer] Work Phone: 1(729) 801-939406-02-2025 NoteHNO ID: [id number] Author: LOREN VALLECILLO APRN.OFFICE ADMIN Service: ? Author Type: Nurse Practitioner Type: [...] Patient agreeable with treatment plan. Loren Vallecillo APRN.OFFICE ADMIN Subjective The patient is a 69-year-old male [...] of breath, (-) h (more content not included)...[facility]06-02-2025 History of Present illness Narrative* Loren Vallecillo APRN.[facility] - 04/01/2025 8:23 AM EDT Patient presents [...] Patient agreeable with treatment plan. Loren Vallecillo APRN.OFFICE ADMIN Subjective The patient is a 69-year-old male [...] seconds, then blow. - Prescriptions sent to [facility]. 3. Seasonal allergic rhinitis due to other allergic trigger (J30.89) - Initiated Astelin nasal spray, one spray in each nostril twice daily. - Initiated Flonase nasal spray, one spray in each nostril twice daily. - Provided education on regular use of nasal sprays to reduce mucosal inflammation and prevent future episodes. - Prescriptions sent to [facility]. 4. Acute cough (R05.1) - Prescribed Tessalon Perles 100 mg orally three times daily as needed for cough suppression. - Prescription sent to [facility]. Recording using [employer] software for draft documentation of the visit was discussed with the patient/authorized outside dealer sales representative; all questions welcomed and answered. Patient/authorized outside dealer sales representative agreed to proceed documented in this encounterGrand Lake [facility]06-02-[facility] Instructions* Patient Instructions* Loren Vallecillo APRN.CNP - 04/01/2025 8:23 AM EDT Images from the original note were not included. Adult Sinusitis Patient Education What is Sinusitis? Sinusitis [dukc-pzv-autj-tis] is inflammation of the sinuses or swelling [...] help. You may be instructed to take gyfz-cwn-ydjijzr medications for symptoms. including fever reducers acetaminophen or ibuprofen, nasal saline spray, cough and cold preparations and decongestants as prescribed by the physician, nurse practitioner or physician assistant sales manager. Self-Care and Prevention: Rest Fluids for hydration Good hand washing Humidifier Avoid smoking and exposure to second hand smoke Avoid sick contacts documented in this encounterGrand Lake Joint [facility]05-30-2025 Telephone encounter Note * Telephone Encounter - Milind Denis MA - 03/29/2025 10:19 AM EDT Patient notified and voiced understanding. Milind Denis MA [facility]05-30-2025 Miscellaneous Notes* Telephone Encounter - Milind [...] tablets. Pharmacy has been updated in chart [facility] Irma Collier March 28, 2025 1:59 PM documented in this encounterGrand Lake Joint Township [facility]05-30-2025 Telephone encounter Note * Telephone Encounter [...] at bedtime. Authorizing Provider: CRUZ PRADO MD [facility]05-29-2025 Telephone encounter Note* Telephone Encounter - [...] come in 25 mg. Izabela Skelton RN [facility]05-29-2025 Telephone encounter Note* Telephone Encounter - Cruz Prado MD - 03/28/2025 3:30 PM EDT Let patient know that with stopping the gabapentin his neuropathy will most likely increase again. I also have that he stopped the trazodone due to feeling to tired the next day. [facility]05-29-2025 Telephone encounter Note* Telephone Encounter - Raul Domingo LPN - 03/28/2025 2:33 PM EDT Please see message below. [place] 01/16/25 NOV 07/23/25 [facility]05-29-2025 Telephone encounter Note* Telephone Encounter - Irma Schmid - 03/28/2025 2:01 PM EDT Patient states that he uses 100 mg of gabapentin at night, but it makes him too sleepy during the day, so he is requesting the trazodonexw to be reinstated. T [facility] Work Phone: [phone]) [phone] Telephone encounter Note* Telephone Encounter - Irma [...] 90 tablets. Pharmacy has been updated in [facility] Irma Collier March 28, 2025 1:59 PM [facility]05-20-2025 NoteHNO ID: [id number] Author: ?, ?, ? Service: ? Author Type: LICENSED NURSE Type: Progress Notes Filed: 03/19/2025 10:25 Note Text: Patient presents for Shingrix vaccine. Denies any problems at this time. Tolerated injection well. Yessica Smith [facility]04-21-2025 NoteHNO ID: [id number] Author: ASIM DENIS APRN.OFFICE ADMIN Service: ? Author Type: Nurse Practitioner Type: [...] history is provided by the patient. No game designer/creative director was used. Sinus Problem Associated symptoms include [...] disease, without long-term current use of insulin ([facility]) 02/24/2019 Decreased libido 01/30/2018 Degenerative retinal drusen [...] Ortho Malignant melanoma of torso excluding breast ([facility]) 02/11/2020 Metabolic dysfunction-associated steatohepatitis (MASH) 10/17/2024 US [...] kidney disease (HCC) 07/12/2024 SVT (supraventricular tachycardia) ([facility]) 05/20/2021 Treated with Ablation: 2013 Tinnitus of [...] INCISE FINGER TENDON SH (more content not included)...[facility] 02-18-2025 History of Present illness Narrative* Asim Denis APRN.OFFICE ADMIN - 02/18/2025 9:01 AM EDT [facility] Subjective 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 [...] history is provided by the patient. No game designer/creative director was used. Sinus Problem Associated symptoms include [...] disease, without long-term current use of insulin ([facility]) 02/24/2019 Decreased libido 01/30/2018 Degenerative retinal drusen of both eyes 05/30/2015 Diabetic eye exam ([facility]) 03/18/2022 Last done 01/05/22 Non-Proliferative Diabetic Retinopathy [...] 02/24/2019 Lumbar spinal stenosis 05/18/2023 MRI 02/2023- [facility] Malignant melanoma of torso excluding breast [...] kidney disease (HCC) 07/12/2024 SVT (supraventricular tachycardia) ([facility]) 05/20/2021 Treated with Ablation: 2013 Tinnitus of [...] patient was discharged. Procedures documented in this encounterGrand Lake Joint Township [facility] Hospital04-02-2025 NoteHNO ID: [id number] Author: MILIND DENIS MA Service: ? Author Type: Wave Solder Offbearer Type: Progress Notes Filed: 01/30/2025 11:29 Note Text: Scan on 01/28/2025 5:43 PM by ProviderZia PA-C: Consultation - Endocrinology Milind Denis [facility]04-02-2025 History of Present illness Narrative* Milind Denis MA - 01/30/2025 11:28 AM EDT Scan on 01/28/2025 5:43 PM by ProviderZia PA-C: Consultation - Endocrinology Milind Denis MA documented in this encounterGrand Lake Joint [facility]04-01-2025 Instructions* Patient Instructions* Ani Linares - [...] (or decreased sensation in your feet) a screen repairer crusher should always cut your toenails. Be Careful [...] Go to your health care provider or screen repairer crusher to treat these conditions. Can use gel pad to help avoid rubbing. Be sure to remove periodically so that it does not lead to moist skin. If pain persists, could consider resecting some of the bone documented in this encounterGrand Lake Joint Township District [facility] Hospital04-01-2025 NoteHNO ID: [id number] Author: ANI LINARES, ? Service: ? Author [...] disease, without long-term current use of insulin ([facility]) 02/24/2019 Decreased libido 01/30/2018 Degenerative retinal drusen [...] 02/24/2019 Lumbar spinal stenosis 05/18/2023 MRI 02/2023- [facility] Malignant melanoma of torso excluding breast [...] bilateral 09/09/2017 Stage 3a chronic kidney disease ([facility]) 07/12/2024 SVT (supraventricular tachycardia) ([facility]) 05/20/2021 Treated with Ablation: 2013 Tinnitus of both ears 12/30/2023 Type 2 diabetes mellitus with retinopathy, without long-term current use of insulin ([facility]) 09/09/2017 Uncontrolled type 2 diabetes mellitus with [...] EPINEPHrine (AUVI-Q) 0.3 mg/0.3 (more content not included)...[facility]04-01-2025 History of Present illness Narrative* Ani Linares [...] disease, without long-term current use of insulin ([facility]) 02/24/2019 Decreased libido 01/30/2018 Degenerative retinal drusen [...] Ortho Malignant melanoma of torso excluding breast ([facility]) 02/11/2020 Metabolic dysfunction-associated steatohepatitis (MASH) 10/17/2024 US [...] bilateral 09/09/2017 Stage 3a chronic kidney disease ([facility]) 07/12/2024 SVT (supraventricular tachycardia) ([facility]) 05/20/2021 Treated with Ablation: 2013 Tinnitus of both ears 12/30/2023 Type 2 diabetes mellitus with retinopathy, without long-term current use of insulin ([facility]) 09/09/2017 Uncontrolled type 2 diabetes mellitus with [...] has returned. Hx of neuropathy and diabetes. [facility] 06/07/24 documented in this encounterGrand Lake Joint Township [facility]04-01-2025 NoteHNO ID: [id number] Author: IZABELA GARCIA RN Service: ? Author [...] has returned. Hx of neuropathy and diabetes. [facility] 06/07/24[facility]03-31-20[facility] Evaluation note* Diagnosis Onset Date Resolution Status Admit Date CKD (chronic kidney disease) chronic January 28, 2025 9:35am Dyslipidemia chronic January 28, 2025 9:35am Essential hypertension chronic [facility] 2024 9:35am Microalbuminuria chronic January 282024 9:35am Neuropathy chronic January 28 9:35am Overweight chronic January 28 9:35am Type 2 diabetes mellitus chronic January 28, 2025 9:35am [place] [employer] Work Phone: 1(260) 223-884403-31-2025 Evaluation note* Diagnosis Onset Date Resolution Status Admit Date CKD (chronic kidney disease) chronic January 28, 2025 9:35am Dyslipidemia chronic January 28, 2025 9:35am Essential hypertension chronic [facility] 2024 9:35am Microalbuminuria chronic January 282024 9:35am Neuropathy chronic January 28 9:35am Overweight chronic January 28 9:35am Type 2 diabetes mellitus chronic January 28, 2025 9:35am CKD (chronic kidney disease) chronic April 29, 2025 9:01am Dyslipidemia chronic April 29, 025 9:01am Essential hypertension chronic [facility] 2024 9:01am Microalbuminuria due to type 2 diabetes mellitus chronic April 29 9:01am Overweight chronic April 29 9:01am Type 2 diabetes mellitus chronic April 29, 2025 9:01am [place] [employer] Work Phone: [phone] Telephone encounter Note* Telephone Encounter - Milind Denis MA - 01/22/2025 3:18 PM EDT Patient notified and voiced understanding. Milind Denis MA [facility]03-25-2025 Miscellaneous Notes* Telephone Encounter - Milind Denis MA - 01/22/2025 3:18 PM EDT Patient notified and voiced understanding. Milind Denis MA * Telephone Encounter - Cruz Prado MD - 01/22/2025 12:58 PM EDT Let patient know the repeat calcium was ok. His parathyroid and vit D labs were ok also. documented in this encounterGrand Lake Joint Township [facility]03-[facility]25 Telephone encounter Note * Telephone Encounter - Cruz Prado MD - 01/22/2025 12:58 PM EDT Let patient know the repeat calcium was ok. His parathyroid and vit D labs were ok also. [facility]03-21-2025 Telephone encounter Note* Telephone Encounter - Cruz Prado MD - 01/18/2025 1:42 PM EDT The following approved medication requests have been transmitted electronically. Requested Prescriptions Signed Prescriptions Disp Refills ferrous sulfate 325 mg (65 mg iron) tablet 45 tablet 3 Sig: Take 1 tablet by mouth every other day. Cruz Prado MD [facility]03-21-2025 Miscellaneous Notes* Telephone Encounter - Cruz [...] send in rx for the iron to [facility]. Only need to call pt [...] urine studies were ok. documented in this encounterGrand Lake Joint Township District [facility]03-21-2025 Telephone encounter Note * Telephone Encounter - Raul Domingo LPN - 01/18/2025 10:12 AM EDT Patient notified of results and provider's instructions. Patient verbalizes understanding. Pt wanting to know if Dr Prado can send in rx for the iron to [facility]. Only need to call pt if rx can't be sent there. Raul Domingo LPN [facility]03-20-2025 Telephone encounter Note* Telephone Encounter - [...] his labs and urine studies were ok. [facility]03-19-2025 Instructions* Patient Instructions* Cruz Prado MD [...] ability to fall asleep documented in this encounterGrand Lake Joint Township District [facility]03-19-2025 History of Present illness Narrative* Cruz [...] 6.0 High CM 6.9 High CM Comment: [place] [employer] guidelines indicate that patients with [...] disease, without long-term current use of insulin ([facility]) 02/24/2019 Decreased libido 01/30/2018 Degenerative retinal drusen [...] Two before bed. 9. SVT (supraventricular tachycardia) ([facility]) - ICD9: 427.89, ICD10: I47.10 - stable [...] which included preparing to see the patient, digz-lq-brai patient care, completing clinical documentation, performing a medically appropriate examination, counseling and educating the patient/family/caregiver and ordering medications, tests, or procedures. Cruz Prado MD documented in this encounterGrand Lake Joint Township District [facility]03-19-2025 NoteHNO ID: [id number] Author: CRUZ PRADO MD Service: ? Author [...] 6.0 High CM 6.9 High CM Comment: [place] [employer] guidelines indicate that patients with HgbA1c in the range 5.7-6.4% ar Patient sees Podiatry next visit 01/2025 Patient sees Ophthalmology last visit 05/[address] Abdi in [facility] for his MASH. Last 6 Encounter BP [...] disease, without long-term current use of insulin ([facility]) 02/24/2019 Decreased libido 01/30/2018 Degenerative retinal drusen [...] nuclear sclerosis, bilateral 09/09/2017 SVT (supraventricular tachycardia) ([facility]) 05/20/2021 Treated with Ablation: 2014 Tinnitus of [...] Right ring open palmar (more content not included)...[facility]03-18-2025 Telephone encounter Note* Telephone Encounter - Milind Denis MA - 01/15/2025 1:44 PM EDT Patient scheduled for tomorrow. Will discuss. Milind Denis MA [facility]03-18-2025 Miscellaneous Notes* Telephone Encounter - Milind [...] next office visit in primary care: 01/16/2025 [facility] Please advise. Thank you. Alexandria Chawla. documented in this encounterGrand Lake Joint Township District [facility]03-11-2025 Telephone encounter Note * Telephone Encounter - Raul Domingo LPN - 01/08/2025 12:00 PM EDT Attempted to contact pt. No answer and vm is full. Will try again later. Raul Domingo LPN [facility]03-11-2025 Telephone encounter Note* Telephone Encounter - Anette Arreola PA-C - 01/08/2025 11:50 AM EDT I will send in refill. Discuss at upcoming visit with dr. Prado the benefits and risk to increasing medication. Anette Arreola PA-C [facility]03-11-2025 Telephone encounter Note* Telephone Encounter - [...] next office visit in primary care: 01/16/2025 [facility] Please advise. Thank you. Alexandria Chawla. [facility]02-12-2025 NoteHNO ID: [id number] Author: JEFFERY BROTHERS PA-C Service: ? Author Type: Physician Foxpro Developer Type: Progress Notes Filed: 12/12/2024 08:36 Note Text: This note was created using [employer]. Subjective Dar Rose is a 69 year [...] TABLET - BENZONATATE 100 MG CAPSULE EDY [facility]02-12-2025 History of Present illness Narrative* Jeffery Brothers PA-C - 12/12/2024 8:32 AM EST This note was created using [employer]. Subjective Dar Rose is a 69 year [...] CAPSULE Jeffery Brothers PA-C documented in this encounterGrand Lake Joint Township District [facility]02-04-2025 NoteHNO ID: [id number] Author: RAUL DOMINGO LPN Service: ? Author Type: LICENSED NURSE Type: Progress Notes Filed: 12/04/2024 07:06 Note Text: Scan on 12/03/2024 5:39 PM by Zia Cornell PA-C: [facility] History of Present illness Narrative* Raul Domingo LPN - 12/04/2024 7:06 AM EST Scan on 12/03/2024 5:39 PM by Zia Cornell PA-C: Chemistry documented in this encounterGrand Lake Joint Township District [facility]01-31-2025 NoteHNO ID: [id number] Author: RAUL DOMINGO LPN Service: ? Author Type: LICENSED NURSE Type: Progress Notes Filed: 11/30/2024 07:34 Note Text: Scan on 11/30/2024 5:34 AM by Zia Cornell PA-C: ChemistryPe[facility]01-31-2025 History of Present illness Narrative* Raul Domingo LPN - 11/30/2024 7:34 AM EST Scan on 11/30/2024 5:34 AM by Zia Cornell PA-C: Chemistry documented in this encounterGrand Lake Joint Township District [facility]01-30-2025 NoteHNO ID: [id number] Author: RAUL DOMINGO LPN Service: ? Author Type: LICENSED NURSE Type: Progress Notes Filed: 11/29/2024 07:29 Note Text: Scan on 11/28/2024 4:38 PM by Zia Cornell PA-C: Hematology Scan on 11/28/2024 5:38 PM by Zia Cornell PA-C: Chemistry Scan on 11/28/2024 6:08 PM by Zia Cornell PA-C: ChemistryPe[facility]01-30-2025 History of Present illness Narrative* Raul Domingo LPN - 11/29/2024 7:29 AM EST Scan on 11/28/2024 4:38 PM by Zia Cornell PA-C: Hematology Scan on 11/28/2024 5:38 PM by Zia Cornell PA-C: Chemistry Scan on 11/28/2024 6:08 PM by Zia Cornell PA-C: Chemistry documented in this encounterGrand Lake Joint Township [facility]01-23-2025 Telephone encounter Note * Telephone Encounter - Izabela Skelton RN - 11/22/2024 8:41 AM EST Pt called and is notified of providers results. Pt voices understanding. Izabela Skelton RN [facility]01-23-2025 Miscellaneous Notes* Telephone Encounter - Izabela Skelton RN - 11/22/2024 8:41 AM EST Pt called and is notified of providers results. Pt voices understanding. Izabela Skelton RN * Telephone Encounter - Cruz Prado MD - 11/21/2024 7:21 PM EST Let patient know his A1c is very good at 5.7% documented in this encounterGrand Lake Joint Township District [facility]01-22-2025 Telephone encounter Note * Telephone Encounter - Cruz Prado MD - 11/21/2024 7:21 PM EST Let patient know his A1c is very good at 5.7% [facility]01-22-2025 NoteHNO ID: [id number] Author: RAUL DOMINGO LPN Service: ? Author Type: LICENSED NURSE Type: Progress Notes Filed: 11/21/2024 07:52 Note Text: Scan on 11/20/2024 2:19 PM by Zia Cornell PA-C: EGD Scan on 11/20/2024 1:51 PM by [facility] History of Present illness Narrative* Raul Domingo LPN - 11/21/2024 7:51 AM EST Scan on 11/20/2024 2:19 PM by Zia Cornell PA-C: EGD Scan on 11/20/2024 1:51 PM by Provider, NELY Lizarraga documented in this encounterGrand Lake Joint Township District [facility] Hospital01-21-2025 [facility] Medical Records Department [address] [place] [address] History Physical Exam 11/20/24 1330 MR#: [id number] Acct: [id number] Name: DAR ROSE Rep #: [id number] : 1955 69 From: Dany Friend DO PCP: Dr. Cruz Prado MD Status:[facility] Location: [place] [address] HPI - General General Date of Admission: [...] RECALL EGD MAY 2025, COLONOSCOPY MAY 2032 [facility] Medical History Wears glasses Cardiology follow-up encounter [...] coffee ground emesis, constipa (more content not included)...[facility]01-15-2025 NoteHNO ID: [id number] Author: RAUL DOMINGO LPN Service: ? Author Type: LICENSED NURSE Type: Progress Notes Filed: 11/14/2024 09:48 Note Text: Scan on 11/14/2024 8:16 AM by ProviderZia PA-C: [facility]01-15-2025 History of Present illness Narrative* Raul Domingo LPN - 11/14/2024 9:47 AM EST Scan on 11/14/2024 8:16 AM by ProviderZia PAKelvinC: MRI documented in this encounterGrand Lake Joint [facility]01-08-2025 Telephone encounter Note * Telephone Encounter - Mary Beltran RN - 11/07/2024 1:[address] [facility] reports the fax sent to them this morning needs resent, only received 2 pages out of 19, and the 2 they have are blurred and difficult to read. Re-faxed recent ov notes, demographics, consult order, lab results to [facility]- attn: Dr. Mireles, to fax # [phone] [facility]01-08-2025 Miscellaneous Notes* Telephone Encounter - Mary Beltran RN - 11/07/2024 1:[address] [facility] reports the fax sent to them this morning needs resent, only received 2 pages out of 19, and the 2 they have are blurred and difficult to read. Re-faxed recent ov notes, demographics, consult order, lab results to [facility]- attn: Dr. Mireles, to fax # [phone] documented in this encounterGrand Lake Joint Township District [facility]01-08-2025 Telephone encounter Note * Telephone Encounter - Milind Denis MA - 11/07/2024 12:03 PM EST Faxed information. Milind Denis MA [facility]01-08-2025 Miscellaneous Notes* Telephone Encounter - Milind Denis MA - 11/07/2024 12:03 PM EST Faxed information. Milind Denis MA * Telephone Encounter - Cruz Prado MD - 11/07/2024 11:19 AM EST Order placed. documented in this encounterGrand Lake Joint Township District [facility]01-08-2025 Telephone encounter Note * Telephone Encounter - Cruz Prado MD - 11/07/2024 11:19 AM EST Order placed. [facility]12-30-2024 Telephone encounter Note* Telephone Encounter - Izabela Skelton RN - 10/29/2024 6:59 PM EST Routed BS strips in other medication order. Closing this TE. [facility]12-30-2024 Miscellaneous Notes* Telephone Encounter - Izabela Skelton RN - 10/29/2024 6:59 PM EST Routed BS strips in other medication order. Closing this TE. documented in this encounterGrand Lake Joint Township District [facility] Hospital12-30-2024 Telephone encounter Note * Telephone Encounter [...] Skelton RN October 29, 2024 6:58 PM [facility]12-30-2024 Miscellaneous Notes* Telephone Encounter - Izabela [...] 29, 2024 6:58 PM documented in this encounterGrand Lake Joint Township District [facility] Hospital12-23-2024 Telephone encounter Note * Telephone Encounter - Raul Domingo LPN - 10/22/2024 10:01 AM EST Please see pt's message. Raul Domingo LPN [facility]12-23-2024 Miscellaneous Notes* Telephone Encounter - Raul Domingo LPN - 10/22/2024 10:01 AM EST Please see pt's message. Raul Domingo LPN documented in this encounterGrand Lake Joint Township District [facility] Hospital12-20-2024 Telephone encounter Note * Telephone Encounter - Shabana Reed LPN - 10/19/2024 10:21 AM EST Patient calling asking about PA, went over notes below with understanding. [facility]12-20-2024 Miscellaneous Notes* Telephone Encounter - Shabana [...] PA completed for ozemppic. documented in this encounterGrand Lake Joint Township District [facility] Hospital12-20-2024 Telephone encounter Note * Telephone Encounter - Patricia Johnson LPN - 10/19/2024 8:33 AM EST Appeal approval rec'd for Ozmepic 0.25/0.5mg pens from 10/18/24 to 10/17/25. Pharmacy notified and pt via my chart. [facility]12-19-2024 Telephone encounter Note* Telephone Encounter - Geri Baptiste MA - 10/18/2024 11:52 AM EST PA is denied did call Rx benefits to see why denied and was due to documetntaion not received. Completed all new PA and faxed with chart notes/a1c Geri Baptiste MA [facility]12-19-2024 Telephone encounter Note* Telephone Encounter - [...] Code E11.22 Authorizing Provider: CRUZ PRADO MD [facility]12-19-2024 Miscellaneous Notes* Telephone Encounter - Cruz [...] Other DM Code E11.22 Authorizing Provider: CRUZ PRDAO MD * Telephone Encounter - Mary Beltran RN - 10/18/2024 9:09 AM EST Pt reports his glucose meter is old and doesn't work. Asking pcp to send new meter, strips, lancetsto [facility] pharmacy. Pended. Last ov: 07-12-24 Next ov: 01-16-25 documented in this encounterGrand Lake Joint Township District [facility] Hospital12-19-2024 Telephone encounter Note * Telephone Encounter - Mary Beltran RN - 10/18/2024 9:09 AM EST Pt reports his glucose meter is old and doesn't work. Asking pcp to send new meter, strips, lancetsto [facility] pharmacy. Pended. Last ov: 07-12-24 Next ov: 01-16-25 [facility]12-18-2024 Telephone encounter Note* Telephone Encounter - Patricia Johnson LPN - 10/17/2024 3:24 PM EST Images from the original note were not included. PA completed for ozemppic. [facility]12-18-2024 NoteHNO ID: [id number] Author: MILIND DENIS MA Service: ? Author Type: Wave Solder Offbearer Type: Progress Notes Filed: 10/17/2024 14:04 Note Text: Scan on 10/15/2024 3:27 PM by Provider, NELY Lizarraga: Ultrasound US - elastography. [facility] History of Present illness Narrative* Milind Denis MA - 10/17/2024 2:03 PM EST Scan on 10/15/2024 3:27 PM by Provider, NELY Lizarraga: Ultrasound US - elastography. Milind Denis MA documented in this encounterGrand Lake Joint Township District [facility] Hospital12-18-2024 Telephone encounter Note * Telephone Encounter - Milind Denis MA - 10/17/2024 10:41 AM EST Patient notified and voiced understanding. Milind Denis MA [facility]12-18-2024 Miscellaneous Notes* Telephone Encounter - Milind [...] pt. Kori Mike LPN documented in this encounterGrand Lake Joint Township District Memorial Hospital12-18-2024 Telephone encounter Note * Telephone Encounter [...] a week. Authorizing Provider: CRUZ PRADO MD [facility]12-18-2024 Telephone encounter Note* Telephone Encounter - [...] dose. Please advise pt. Kori Mike LPN [facility]12-09-2024 Telephone encounter Note* Telephone Encounter - [...] to pt via . Raul Domingo LPN [facility]12-09-2024 Miscellaneous Notes* Telephone Encounter - Raul [...] was made; and he checked into the [place] machine on 07/12/12 and that Anette did a routine visit. I indicated that vitals were completed and complete chart shows. Again patient indicated that he didn't come in. Milind Denis MA documented in this encounterGrand Lake Joint Township District [facility] Hospital12-09-2024 Telephone encounter Note * Telephone Encounter - Anette Arreola PA-C - 10/08/2024 11:13 AM EST The visit occurred. He will need to speak with the financial department if he is concerned about cost. Anette Arreola PA-C [facility]12-09-2024 Miscellaneous Notes* Telephone Encounter - Cruz [...] instructions. Patient would like this to go [facility]. Removed [facility] [place]. Milind Denis MA * Telephone Encounter - [...] advise, Jenn Goodman RN documented in this encounterGrand Lake Joint Township District [facility] Hospital12-09-2024 Telephone encounter Note * Telephone Encounter - Cruz Prado MD - 10/08/2024 11:11 AM EST The following approved medication requests have been transmitted electronically. Requested Prescriptions Signed Prescriptions Disp Refills dulaglutide (TRULICITY) 0.75 mg/0.5 mL pen injector 1 Each 0 Sig: Inject 0.75 mg subcutaneously one time a week. Inject dose once per week. Discard Pen After Authorizing Provider: CRUZ PRADO MD [facility]12-09-2024 Telephone encounter Note* Telephone Encounter - [...] was made; and he checked into the [place] machine on 07/12/12 and that Anette did a routine visit. I indicated that vitals were completed and complete chart shows. Again patient indicated that he didn't come in. Milind Denis MA [facility]12-09-2024 Telephone encounter Note* Telephone Encounter - Milind Denis MA - 10/08/2024 11:00 AM EST Spoke with patient and gave instructions. Patient would like this to go [facility]. Removed [facility] [place]. Milind Denis MA [facility]12-09-2024 Telephone encounter Note* Telephone Encounter - [...] Pen After Authorizing Provider: CRUZ PRADO MD [facility]12-09-2024 Telephone encounter Note* Telephone Encounter - [...] Please review and advise, Jenn Goodman RN [facility]11-27-2024 Telephone encounter Note* Telephone Encounter - Geri Baptiste MA - 09/26/2024 3:05 PM EST PA approved till 09/23/25 and was faxed to pharmacy. Patient was notified. Geri Baptiste MA [facility]11-27-2024 Miscellaneous Notes* Telephone Encounter - Geri Baptiste MA - 09/26/2024 3:05 PM EST PA approved till 09/23/25 and was faxed to pharmacy. Patient was notified. Geri Baptiste MA * Telephone Encounter - Geri Baptiste MA - 09/24/2024 3:22 PM EST Images from the original note were not included. Rx needs completed through [employer] Completed through portal Prior Auth (EOC) ID: [id number] MemberID: [id number] [email or web address]_sou [email or web address]&utm_medium=referral&utm_campaign=prior+auth+page * Telephone Encounter - Patricia Johnson LPN - 09/21/2024 3:08 PM EST ELECTRONIC PA REC'D AND COMPLETED FOR TRULICITY documented in this encounterGrand Lake Joint Township District [facility] Hospital11-25-2024 Telephone encounter Note * Telephone Encounter - Geri Baptiste MA - 09/24/2024 3:22 PM EST Images from the original note were not included. Rx needs completed through [employer] Completed through portal Prior Auth (EOC) ID: [id number] MemberID: [id number] [email or web address]_sou rce=[email or web address]&utm_medium=referral&utm_campaign=prior+auth+page [facility]11-22-2024 Telephone encounter Note* Telephone Encounter - Patricia Johnson LPN - 09/21/2024 3:08 PM EST ELECTRONIC PA REC'D AND COMPLETED FOR TRULICITY [facility]11-22-2024 Telephone encounter Note* Telephone Encounter - Irma Schmid - 09/21/2024 1:11 PM EST Patient switched insurance at the beginning of the month and the [employer] needs a Prior Authorization. Insurance updated. Please run Prior Authorization and send script to [facility]. [facility]11-22-2024 Miscellaneous Notes* Telephone Encounter - Imra Schmid - 09/21/2024 1:11 PM EST Patient switched insurance at the beginning of the month and the [employer] needs a Prior Authorization. Insurance updated. Please run Prior Authorization and send script to [facility]. * Telephone Encounter - Irma Schmid [...] 21, 2024 1:10 PM documented in this encounterGrand Lake Joint Township District [facility] Hospital11-22-2024 Telephone encounter Note * Telephone Encounter - Irma Schmid - [...] Mary Collier September 21, 2024 1:10 PM [facility]11-12-2024 Telephone encounter Note* Telephone Encounter - Milind Denis MA - 09/11/2024 10:31 AM EST Let patient know I received a copy of his Hep B immunity test which shows he is not immune. He needs to get the Hep- B series. Milind Denis MA Spoke with patient and he just finished his series. Milind Denis MA [facility]11-12-2024 Miscellaneous Notes* Telephone Encounter - Milind Denis MA - 09/11/2024 10:31 AM EST Let patient know I received a copy of his Hep B immunity test which shows he is not immune. He needs to get the Hep- B series. Milind Denis MA Spoke with patient and he just finished his series. Milind Denis MA documented in this encounterGrand Lake Joint Township District [facility]11-08-2024 NoteHNO ID: [id number] Author: CRUZ PRADO MD Service: ? Author Type: Physician Type: Progress Notes Filed: 09/07/2024 13:11 Note Text: Let patient know I received a copy of his Hep B immunity test which shows he is not immune. He needs to get the Hep- B series.[facility] 09-07-20[facility] History of Present illness Narrative* Cruz Prado MD - 09/07/2024 1:10 PM EST Let patient know I received a copy of his Hep B immunity test which shows he is not immune. He needs to get the Hep- B series. * Raul Domingo LPN - 09/07/2024 11:27 AM EST Scan on 09/07/2024 9:34 AM by ProviderZia PA-C: Chemistry documented in this encounterGrand Lake Joint Township District [facility] Hospital11-08-2024 NoteHNO ID: [id number] Author: RAUL DOMINGO LPN Service: ? Author Type: LICENSED NURSE Type: Progress Notes Filed: 09/07/2024 11:27 Note Text: Scan on 09/07/2024 9:34 AM by ProviderZia PA-C: [facility]11-[facility] Telephone encounter Note* Telephone Encounter - Miranda [...] no longer get medication thru mail order; [facility] toldpatient to call office for new prescriptions to be sent to them. Miranda Collier August 31, 2024 11:56 AM [facility]11-01-2024 Miscellaneous Notes* Telephone Encounter - Miranda [...] no longer get medication thru mail order; [facility] toldpatient to call office for new prescriptions to be sent to them. Miranda Collier August 31, 2024 11:56 AM documented in this encounterGrand Lake Joint Township [facility]10-21-[facility]24 Telephone encounter Note * Telephone Encounter - Bebe Hines RN - 08/20/2024 1:47 PM EDT Patient calling to request referral to GASTRO be faxed to [facility]. Order from 01/31/24, demographics and OV note faxed per request. Bebe Hines RN [facility]10-21-2024 Miscellaneous Notes* Telephone Encounter - Bebe Hines RN - 08/20/2024 1:47 PM EDT Patient calling to request referral to GASTRO be faxed to [facility]. Order from 01/31/24, demographics and OV note faxed per request. Bebe Hines RN documented in this encounterGrand Lake Joint Township [facility]10-21-2024 Telephone encounter Note * Telephone Encounter [...] Denis MA August 20, 2024 10:14 AM [facility]10-21-2024 Miscellaneous Notes* Telephone Encounter - Milind [...] 07-12-24 Future visit scheduled: yes PHARMACY: [facility]. documented in this encounterGrand Lake Joint Township District [facility]10-21-2024 Telephone encounter Note * Telephone Encounter - An Renee - 08/20/2024 9:56 AM EDT Patient requesting the following medication that is no longer on list. Patient last seen: 07-12-24 Future visit scheduled: yes PHARMACY: [facility]09[facility] History of Present illness Narrative* Anette [...] disease, without long-term current use of insulin ([facility]) 01/30/2018: Decreased libido 05/30/2015: Degenerative retinal drusen of both eyes 03/18/2022: Diabetic eye exam ([facility]) Comment: Last done 01/05/22 Non-Proliferative Diabetic Retinopathy [...] 05/18/2023: Lumbar spinal stenosis Comment: MRI 02/2023- [facility] 02/11/2020: Malignant melanoma of torso excluding breast (HCC) 03/20/2013: Mixed hyperlipidemia 05/30/2015: Nuclear sclerotic cataract of both eyes 10/13/2022: Pain in both lower extremities 09/09/2017: Peripheral retinal degeneration, paving stone, bilateral 08/30/2022: Peripheral sensory neuropathy due to type 2 diabetes mellitus ([facility]) 09/22/2023: Post-COVID chronic fatigue Comment: Along with HS's and body aches: Has FMLA for 08/31/2016: Posterior vitreous detachment of left eye 09/09/2017: Posterior vitreous detachment of right eye 08/10/2021: Renal cyst, right Comment: Simple, benign US 07/202103/19/2022: Retinopathy Comment: Mild B/l No date: Rotator cuff tear, left 05/17/2017: Senile nuclear sclerosis 09/09/2017: Senile nuclear sclerosis, bilateral 05/20/2021: SVT (supraventricular tachycardia) ([facility]) Comment: Treated with Ablation: 201312/30/2023: Tinnitus of both ears 09/09/2017: Type 2 diabetes mellitus with retinopathy, without long- term current use of insulin ([facility]) 01/30/2018: Uncontrolled type 2 diabetes mellitus with [...] Abs Lymph 1.00 - 4.00 k/uL 1.30 [place]% % 9.5 Abs [place] <0.87 k/uL 0.81 [place]% % 3.3 Abs [...] medications Anette Arreola PA-C documented in this encounterGrand Lake Joint Township District [facility]09-06-2024 Telephone encounter Note * Telephone Encounter - Izabela Skelton RN - 07/06/2024 11:47 AM EDT Pt called and is notified of providers results and instructions. Pt voices understanding. Pt stateshe will call back to reschedule because he has to check his schedule. Izabela Skelton RN [facility]09-06-2024 Miscellaneous Notes* Telephone Encounter - Izabela [...] reschedule his follow up. documented in this encounterGrand Lake Joint Township District [facility] Hospital09-06-2024 Telephone encounter Note * Telephone Encounter - Lorie Moses APRN.CNP - 07/06/2024 9:45 AM EDT Please let patient know his labs are stable. Patient should reschedule his follow up. [facility]08-27-2024 Telephone encounter Note* Telephone Encounter - Lorie Moses APRN.CNP - 06/26/2024 10:16 AM EDT Noted. [facility]08-27-2024 Miscellaneous Notes* Telephone Encounter - Lorie Moses APRN.CNP - 06/26/2024 10:16 AM EDT Noted. * Telephone Encounter - Milind Denis MA - 06/26/2024 10:08 AM EDT Scan on 06/25/2024 9:44 AM by Provider, External, PA-C: Miscellaneous Lab Scan on 06/26/2024 6:35 AM by Provider, External, PA-C: Miscellaneous Lab Please review. Milind Denis MA documented in this encounterGrand Lake Joint Township District [facility] Hospital08-27-2024 Telephone encounter Note * Telephone Encounter - Milind Denis MA - 06/26/2024 10:08 AM EDT Scan on 06/25/2024 9:44 AM by Provider, External, PA-C: Miscellaneous Lab Scan on 06/26/2024 6:35 AM by Provider, External, PA-C: Miscellaneous Lab Please review. Milind Denis MA [facility]08-08-2024 Instructions* Patient Instructions* Ani Linares - [...] (or decreased sensation in your feet) a screen repairer crusher should always cut your toenails. Be Careful [...] Go to your health care provider or screen repairer crusher to treat these conditions. documented in this encounterGrand Lake Joint Township District [facility] Hospital08-08-2024 History of Present illness Narrative* MilagrosAni [...] (H) 4.3 - 5.6 % Final Comment: [place] [employer] guidelines indicate that patients with [...] disease, without long-term current use of insulin ([facility]) 01/30/2018: Decreased libido 05/30/2015: Degenerative retinal drusen of both eyes 03/18/2022: Diabetic eye exam ([facility]) Comment: Last done 01/05/22 Non-Proliferative Diabetic Retinopathy [...] 05/18/2023: Lumbar spinal stenosis Comment: MRI 02/2023- [facility] 02/11/2020: Malignant melanoma of torso excluding breast ([facility]) 03/20/2013: Mixed hyperlipidemia 05/30/2015: Nuclear sclerotic cataract of both eyes 10/13/2022: Pain in both lower extremities 09/09/2017: Peripheral retinal degeneration, paving stone, bilateral 08/30/2022: Peripheral sensory neuropathy due to type 2 diabetes mellitus ([facility]) 09/22/2023: Post-COVID chronic fatigue Comment: Along with HS's and body aches: Has FMLA for 08/31/2016: Posterior vitreous detachment of left eye 09/09/2017: Posterior vitreous detachment of right eye 08/10/2021: Renal cyst, right Comment: Simple, benign US 07/202103/19/2022: Retinopathy Comment: Mild B/l No date: Rotator cuff tear, left 05/17/2017: Senile nuclear sclerosis 09/09/2017: Senile nuclear sclerosis, bilateral 05/20/2021: SVT (supraventricular tachycardia) ([facility]) Comment: Treated with Ablation: 201312/30/2023: Tinnitus of [...] week. Magda Burton LPN documented in this encounterGrand Lake Joint Township District [facility] Hospital07-29-2024 Telephone encounter Note * Telephone Encounter - Milind Denis MA - 05/28/2024 8:54 AM EDT Patient notified and is coming in later today at 2:20 appointment with his . Paperwork on nurses desk. Milind Denis MA [facility]07-29-2024 Miscellaneous Notes* Telephone Encounter - Milind [...] the office today. Please call Reagan at [phone]. Raul Domingo LPN * Telephone Encounter - Milind Denis MA - 05/21/2024 11:26 AM EDT This will needed addressed upon provider coming back in the office. Patient had not reviewed his messages that we sent requesting additional information regarding his FMLA. Paperwork Patient indicated that he was off work because his (catherine) was in the [facility] from 05/01-05/06. Hewas then off again. 05/07-05/09 [...] is completed, Fax form to Armen Allen [phone] Form has been forwarded to Physician Desk: Dr. Dr Prado Patient's was in hospital Review of chart patient was in ER 05/01/2024 and then again 05/04/2024 and was admitted again 05/08/2024. Milind Denis MA documented in this encounterGrand Lake Joint Township District [facility]07-28-2024 Telephone encounter Note * Telephone Encounter - Cruz Prado MD - 05/27/2024 2:27 PM EDT My section is complete. Please make copy for chart. Advise patient he will aleah to review Sect II and answer/update questions 1-5 [facility]07-26-2024 Telephone encounter Note* Telephone Encounter - Milind Denis MA - 05/25/2024 10:17 AM EDT Patient was notified and voiced understanding. Will notified patient once paperwork is complete. Milind Denis MA [facility]07-25-2024 Telephone encounter Note* Telephone Encounter - [...] the office today. Please call Reagan at [phone]. Raul Domingo LPN [facility]07-22-2024 Telephone encounter Note* Telephone Encounter - Milind Denis MA - 05/21/2024 11:26 AM EDT This will needed addressed upon provider coming back in the office. Patient had not reviewed his messages that we sent requesting additional information regarding his FMLA. Paperwork Patient indicated that he was off work because his (catherine) was in the [employer] from 05/01-05/06. Hewas then off again. 05/07-05/09 [...] him to work on) Milind Denis MA [facility]07-17-2024 Telephone encounter Note* Telephone Encounter - Milind Denis MA - 05/16/2024 9:02 AM EDT Sent my chart message to patient. With below information. Milind Denis MA [facility]07-16-2024 Telephone encounter Note* Telephone Encounter - [...] (hrs per day) ( days per week) [facility]07-15-2024 Telephone encounter Note* Telephone Encounter - Milind Denis MA - 05/14/2024 10:12 AM EDT Type of form: FMLA Form received via walk in When form is completed, Fax form to Armen Allen [phone] Form has been forwarded to Physician Desk: Dr. Dr Prado Patient's was in hospital Review of chart patient was in ER 05/01/2024 and then again 05/04/2024 and was admitted again 05/08/2024. 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 Past medical history, appointments, medications, allergies reviewed. [...] disease, without long-term current use of insulin ([facility]) 02/24/2019 Decreased libido 01/30/2018 Degenerative retinal drusen of both eyes 05/30/2015 Diabetic eye exam ([facility]) 03/18/2022 Last done 01/05/22 Non-Proliferative Diabetic Retinopathy [...] 02/24/2019 Lumbar spinal stenosis 05/18/2023 MRI 02/2023- [facility] Malignant melanoma of torso excluding breast ([facility]) 02/11/2020 Mixed hyperlipidemia 03/20/2013 Nuclear sclerotic cataract of both eyes 05/30/2015 Pain in both lower extremities 10/13/2022 Peripheral retinal degeneration, paving stone, bilateral 09/09/2017 Peripheral sensory neuropathy due to type 2 diabetes mellitus ([facility]) 08/30/2022 Post-COVID chronic fatigue 09/22/2023 Along with HS's and body aches: Has FMLA for Posterior vitreous detachment of left eye 08/31/2016 Posterior vitreous detachment of right eye 09/09/2017 Renal cyst, right 08/10/2021 Simple, benign US 07/2021 Retinopathy 03/19/2022 Mild B/l Rotator cuff tear, left Senile nuclear sclerosis 05/17/2017 Senile nuclear sclerosis, bilateral 09/09/2017 SVT (supraventricular tachycardia) ([facility]) 05/20/2021 Treated with Ablation: 2013 Tinnitus of both ears 12/30/2023 Type 2 diabetes mellitus with retinopathy, without long-term current use of insulin ([facility]) 09/09/2017 Uncontrolled type 2 diabetes mellitus with [...] by mouth once daily. Per Cardio, Dr. Schnedier Lancets lancets Test blood sugar(s) 2 times [...] 07/06/2024 Cruz Prado MD documented in this encounterGrand Lake Joint Township [facility]06-27-2024 Instructions* Patient Instructions* Ani Linares - [...] (or decreased sensation in your feet) a screen repairer crusher should always cut your toenails. Be Careful [...] Go to your health care provider or screen repairer crusher to treat these conditions. documented in this encounterGrand Lake Joint Township District [facility] Hospital06-27-2024 History of Present illness Narrative* Ani [...] disease, without long-term current use of insulin ([facility]) 02/24/2019 Decreased libido 01/30/2018 Degenerative retinal drusen [...] Ortho Malignant melanoma of torso excluding breast ([facility]) 02/11/2020 Mixed hyperlipidemia 03/20/2013 Nuclear sclerotic cataract of both eyes 05/30/2015 Pain in both lower extremities 10/13/2022 Peripheral retinal degeneration, paving stone, bilateral 09/09/2017 Peripheral sensory neuropathy due to type 2 diabetes mellitus ([facility]) 08/30/2022 Post-COVID chronic fatigue 09/22/2023 Along with HS's and body aches: Has FMLA for Posterior vitreous detachment of left eye 08/31/2016 Posterior vitreous detachment of right eye 09/09/2017 Renal cyst, right 08/10/2021 Simple, benign US 07/2021 Retinopathy 03/19/2022 Mild B/l Rotator cuff tear, left Senile nuclear sclerosis 05/17/2017 Senile nuclear sclerosis, bilateral 09/09/2017 SVT (supraventricular tachycardia) ([facility]) 05/20/2021 Treated with Ablation: 2013 Tinnitus of both ears 12/30/2023 Type 2 diabetes mellitus with retinopathy, without long-term current use of insulin ([facility]) 09/09/2017 Uncontrolled type 2 diabetes mellitus with [...] order. Magda Burton LPN documented in this encounterGrand Lake Joint Township [facility]06-13-2024 History of Present illness Narrative* Francisco [...] N18.30 Francisco Suh MD documented in this encounterGrand Lake Joint Township District [facility] Hospital06-11-2024 Telephone encounter Note * Telephone Encounter - Milind Denis MA - 04/10/2024 9:41 AM EDT Fax number is with Paperwork. Faxed to [employer]. Mailed copy to patient Copy sent to scanning. Patient notified. Milind Denis MA [facility]06-11-2024 Miscellaneous Notes* Telephone Encounter - Milind Denis MA - 04/10/2024 9:41 AM EDT Fax number is with Paperwork. Faxed to [facility] [employer]. Mailed copy to patient Copy sent to [...] copy for his records. documented in this encounterGrand Lake Joint Township District [facility] Hospital06-10-2024 Telephone encounter Note * Telephone Encounter - Cruz Prado MD - 04/09/2024 10:37 PM EDT Patient's FMLA forms are complete. Please have copy scanned into chart. Let him know there is no fax number on the form so he will need to come in and pick p the originals. He should make a copy for his records. [facility]06-07-2024 Telephone encounter Note* Telephone Encounter - Milind Denis MA - 04/06/2024 8:[address] Prado I don't see a note in the computer for the paperwork. I have not seen it the paperwork. Do you have the paperwork? Milind Denis MA [facility]06-07-2024 Miscellaneous Notes* Telephone Encounter - Milind Denis MA - 04/06/2024 8:[address] Prado I don't see a note in the computer for the paperwork. I have not seen it the paperwork. Do you have the paperwork? Milind Denis MA documented in this encounterGrand Lake Joint Township District [facility] Hospital06-05-2024 History of Present illness Narrative* Tanya Vega APRN.OFFICE ADMIN - 04/04/2024 10:52 AM EDT This note was created using [employer]. Subjective Dar Rose is a 68 year [...] return tomorrow. Endorses he works at the [employer] for [employer] Denies CP Denies SOB Denies dyspnea The history is provided by the patient. No game designer/creative director was used. Illness The current episode started [...] disease, without long-term current use of insulin ([facility]) 02/24/2019 Decreased libido 01/30/2018 Degenerative retinal drusen of both eyes 05/30/2015 Diabetic eye exam ([facility]) 03/18/2022 Last done 01/05/22 Non-Proliferative Diabetic Retinopathy [...] neuropathy due to type 2 diabetes mellitus ([facility]) 08/30/2022 Post-COVID chronic fatigue 09/22/2023 Along with HS's and body aches: Has FMLA for Posterior vitreous detachment of left eye 08/31/2016 Posterior vitreous detachment of right eye 09/09/2017 Renal cyst, right 08/10/2021 Simple, benign US 07/2021 Retinopathy 03/19/2022 Mild B/l Rotator cuff tear, left Senile nuclear sclerosis 05/17/2017 Senile nuclear sclerosis, bilateral 09/09/2017 SVT (supraventricular tachycardia) ([facility]) 05/20/2021 Treated with Ablation: 2013 Tinnitus of both ears 12/30/2023 Type 2 diabetes mellitus with retinopathy, without long-term current use of insulin ([facility]) 09/09/2017 Uncontrolled type 2 diabetes mellitus with [...] Augmentin. Tanya Vega APRN.KRANTHI documented in this encounterGrand Lake Joint Township District [facility]06-03-2024 Telephone encounter Note * Telephone Encounter [...] 07/06/2024 Please advise. Thank you. An Renee. [facility]06-03-2024 Miscellaneous Notes* Telephone Encounter - An [...] Thank you. An Renee. documented in this encounterGrand Lake Joint Township District [facility] Hospital06-03-2024 History of Present illness Narrative* Francisco [...] disease, without long-term current use of insulin ([facility]) 02/24/2019 Decreased libido 01/30/2018 Degenerative retinal drusen of both eyes 05/30/2015 Diabetic eye exam ([facility]) 03/18/2022 Last done 01/05/22 Non-Proliferative Diabetic Retinopathy [...] Ortho Malignant melanoma of torso excluding breast ([facility]) 02/11/2020 Mixed hyperlipidemia 03/20/2013 Nuclear sclerotic cataract of both eyes 05/30/2015 Pain in both lower extremities 10/13/2022 Peripheral retinal degeneration, paving stone, bilateral 09/09/2017 Peripheral sensory neuropathy due to type 2 diabetes mellitus ([facility]) 08/30/2022 Post-COVID chronic fatigue 09/22/2023 Along with HS's and body aches: Has FMLA for Posterior vitreous detachment of left eye 08/31/2016 Posterior vitreous detachment of right eye 09/09/2017 Renal cyst, right 08/10/2021 Simple, benign US 07/2021 Retinopathy 03/19/2022 Mild B/l Rotator cuff tear, left Senile nuclear sclerosis 05/17/2017 Senile nuclear sclerosis, bilateral 09/09/2017 SVT (supraventricular tachycardia) ([facility]) 05/20/2021 Treated with Ablation: 2013 Tinnitus of both ears 12/30/2023 Type 2 diabetes mellitus with retinopathy, without long-term current use of insulin ([facility]) 09/09/2017 Uncontrolled type 2 diabetes mellitus with [...] allergies. Francisco Suh MD documented in this encounterGrand Lake Joint Township [facility]04-02-2024 Instructions* Patient Instructions* Lorie Moses APRN.[facility] - 01/31/2024 3:33 PM EDT HIGH FIBER [...] 6 large 3.6 Raisins 1/2 cup 3.2 [place] 1 medium 3.1 Strawberries, raw 1 cup 2.8 Grapes with skin 1 cup 2.6 Pear, canned or packed 1 cup 2.3 Cherries, frozen or raw 10 1.1 [place], raw 1 cup 0.5 Watermelon, raw 1 cup 0.3 VEGETABLES Beans, bakes 1/2 cup 10.9 Peas, green, frozen, canned 1/2 cup 5.2 Beans,red,kidney 1/2 cup 4.8 [place], sweet 1-4 cob 4.7 Broccoli, steamed 2/3 cup 4.1 Potato, sweet or baked 1 small 4.0 Potato chips 15 3.6 Potato, white, raw 1 small 3.5 Squash,baked, winter 1/2 cup 3.5 Popcorn 31/2 cup 3.5 [place], sweet, canned 1/2 cup 3.2 Potato, iraqi fried 20 3.2 Zucchini squash 1/2 cup 2.2 Carrots, cooked 1/2 cup 2.2 [place] sprouts 1/2 cup 2.0 Cabbage cooked 1/2 cup 1.8 Beans, green, waxed 1/2 cup 1.7 Beets, cooked 1/2 cup 1.5 Beans, hoang 1/2 cup 1.4 Cauliflower 1/2 cup 1.13 NUTS AND SEEDS Mayes seeds 2.oz 8.1 Peanuts 4 tbsp. 5.6 Peanutbutter, smooth 2 tbsp. 2.6 documented in this encounterGrand Lake Joint Township [facility]04-02-2024 History of Present illness Narrative* Lorie Moses, WOODY.OFFICE ADMIN - 01/31/2024 3:23 PM EDT Chief Complaint [...] disease, without long-term current use of insulin ([facility]) 02/24/2019 Decreased libido 01/30/2018 Degenerative retinal drusen [...] 02/24/2019 Lumbar spinal stenosis 05/18/2023 MRI 02/2023- [facility] Malignant melanoma of torso excluding breast [...] GASTROENTEROLOGY -Continue current medication regimen. Lorie Moses APRN.OFFICE ADMIN documented in this encounterGrand Lake Joint Township District [facility]03-05-2024 Miscellaneous Notes* Telephone Encounter - Milind Denis MA - 01/03/2024 8:32 AM EST Patient notified and voiced understanding. Milind Denis MA * Telephone Encounter - Cruz Prado MD - 01/02/2024 10:16 PM EST Let patient know testosterone level was ok. documented in this encounterGrand Lake Joint Township District [facility] Hospital02-21-2024 Miscellaneous Notes* Telephone Encounter - Milind [...] to be sent to local pharmacy. [facility] [place] Disp Refills Start End baclofen 10 mg tablet 90 tablet 1 11/29/2023 -- Sig: Take 1 tablet by mouth three times a day as needed (muscle spasms). Sent to pharmacy as: baclofen 10 mg tablet Class: Normal Route: ORAL Patient has been identified by name and birthdate. Duration of symptoms: N/A Person calling: self Call patient at: at home [phone] (home) [phone] (cell) Was an appointment scheduled: No Closing statement: Results or non-symptom based questions: Thank you for calling [facility], your call will be returned within the next business day. Miranda Collier documented in this encounterGrand Lake Joint Township District Memorial Hospital12-28-2023 NoteHNO ID: [id number] Author: Julissa Garcia, TECHNOLOGIST Service: ? Author [...] BY: TECHNOLOGIST [place] October 27, 2023 9:08 [facility]11-29-2023 Miscellaneous Notes* Telephone Encounter - Milind Denis [...] 11:48 AM EST Received fax from [facility] regarding patient's diabetic shoes. I reviewed chart and Dr. Linares ordered. Placed paperwork in outgoing to be taken to other building. Milind Denis MA documented in this encounterGrand Lake Joint Township District [facility] Hospital11-29-2023 Miscellaneous Notes* Telephone Encounter - Milind [...] When form is completed, Fax form to [phone] and call pt to lemon picker Form has been forwarded to Dr. Prado's desk for completion Kristina Ya Cma documented in this encounterGrand Lake Joint Township District [facility] Hospital11-28-2023 History of Present illness Narrative* Alexandria [...] disease, without long-term current use of insulin ([facility]) 02/24/2019 Decreased libido 01/30/2018 Degenerative retinal drusen of both eyes 05/30/2015 Diabetic eye exam ([facility]) 03/18/2022 Last done 01/05/22 Non-Proliferative Diabetic Retinopathy [...] 02/24/2019 Malignant melanoma of torso excluding breast ([facility]) 02/11/2020 Mixed hyperlipidemia 03/20/2013 Nuclear sclerotic cataract of both eyes 05/30/2015 Peripheral retinal degeneration, paving stone, bilateral 09/09/2017 Peripheral sensory neuropathy due to type 2 diabetes mellitus ([facility]) 08/30/2022 Post-COVID chronic fatigue 09/22/2023 Along with [...] MG-POTASSIUM CLAVULANATE 125 MG TABLET Alexandria Contreras APRN.OFFICE ADMIN Prescription instructions reviewed with patient as applicable. [...] which included preparing to see the patient, [id number] patient care, completing clinical documentation, obtaining and/or reviewing separately obtained history, performing a medically appropriate examination, counseling and educating the pat ient/family/caregiver, and ordering medications, tests, or procedures. 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 We discussed proper hand washing, [...] Tramadol This note was partially generated using DeepRockDrive voice recognition system, and there may be some incorrect words, spellings, and punctuation that were not noted in checking the note before saving. Nkechi Ramos PA-C * Parvin Preera LPN - 09/26/2023 2:36 PM EST Patient [...] pulling sensation) Intervention/Comfort measure: Medication (tylenol) Parvin Perera LPN documented in this encounterGrand Lake Joint Township District Memorial Hospital11-15-2023 Miscellaneous Notes* Telephone Encounter - Yady Herrera Ma - 09/14/2023 9:19 AM EST Forms completed and returned to [facility]'s Office. Confirmation received. Copy sent for [...] completed, Fax form to Armen King @ [phone] Form has been forwarded to [facility] Catherine Moreno Ma documented in this encounterGrand Lake Joint Township District Memorial Hospital10-27-2023 Miscellaneous Notes* Telephone Encounter - Yady Herrera Ma - 08/26/2023 2:32 PM EDT Surgery has been scheduled as requested. Patient stated in OV that his FMLA would start on 09/16/2023 and return would be 09/17/2023 on light duty. * Telephone Encounter - Yady Herrera Ma - 08/22/2023 3:13 PM EDT Surgical request completed for right ring trigger finger release at [facility] on 09/15/2023. Post op appointments have been scheduled and mailed to the patient. documented in this encounterGrand Lake Joint Township District Memorial Hospital10-23-2023 History of Present illness Narrative* Pablito Ruiz MD - 08/22/2023 1:42 PM EDT Pablito Ruiz MD Department of Orthopaedics Orthopaedics [address] [facility] [address] Dept: [phone] Dept August 22, 2023 CHIEF COMPLAINT: Trigger [...] anxiety) Pablito Ruiz MD documented in this encounterGrand Lake Joint Township District Memorial Hospital10-20-2023 History of Present illness Narrative* Gabby Stark APRN.OFFICE ADMIN - 08/19/2023 11:07 AM EDT Images from the original note were not included. Subjective The history is provided by the patient. No game designer/creative director was used. HPI Dar Rose is a [...] disease, without long-term current use of insulin ([facility]) 02/24/2019 Decreased libido 01/30/2018 Degenerative retinal drusen of both eyes 05/30/2015 Diabetic eye exam ([facility]) 03/18/2022 Last done 01/05/22 Non-Proliferative Diabetic Retinopathy [...] on file at physician's office 10/13/2022 DPA: catheirne () Low testosterone in male 06/21/2020 Lumbar radiculopathy 02/24/2019 Malignant melanoma of torso excluding breast ([facility]) 02/11/2020 Mixed hyperlipidemia 03/20/2013 Nuclear sclerotic cataract of both eyes 05/30/2015 Peripheral retinal degeneration, paving stone, bilateral 09/09/2017 Peripheral sensory neuropathy due to type 2 diabetes mellitus ([facility]) 08/30/2022 Posterior vitreous detachment of left eye 08/31/2016 Posterior vitreous detachment of right eye 09/09/2017 Renal cyst, right 08/10/2021 Simple, benign US 07/2021 Retinopathy 03/19/2022 Mild B/l Rotator cuff tear, left Senile nuclear sclerosis 05/17/2017 Senile nuclear sclerosis, bilateral 09/09/2017 SVT (supraventricular tachycardia) 05/20/2021 Treated with Ablation: 2013 Type 2 diabetes mellitus with retinopathy, without long-term current use of insulin ([facility]) 09/09/2017 Uncontrolled type 2 diabetes mellitus with stage 3 chronic kidney disease, without long-term current use of insulin 01/30/2018 Vitreous syneresis of both eyes 05/30/2015 Well adult exam 08/23/2022 I have confirmed and edited as necessary, the [facility] Review of Systems Constitutional: Negative for chills [...] evaluation. Gabby Stark APRN.CNP documented in this encounterGrand Lake Joint Township District [facility] Hospital10-20-2023 Instructions* Patient Instructions* Gabby Stark APRN.CNP - 08/19/2023 11:04 AM EDT Cool compresses for eye inflammation/irritation frequently throughout the day. Go to ER for any sudden loss of vision or severe vision changes. Follow up with Eye doctor if no improvement in 1 week. documented in this encounterGrand Lake Joint Township District [facility] Hospital10-17-2023 Instructions* Patient Instructions* Ani Linares - [...] (or decreased sensation in your feet) a screen repairer crusher should always cut your toenails. Be Careful [...] Go to your health care provider or screen repairer crusher to treat these conditions. documented in this encounterGrand Lake Joint Township District [facility] Hospital10-17-2023 History of Present illness Narrative* Ani [...] disease, without long-term current use of insulin ([facility]) 02/24/2019 Decreased libido 01/30/2018 Degenerative retinal drusen [...] neuropathy due to type 2 diabetes mellitus ([facility]) 08/30/2022 Posterior vitreous detachment of left eye [...] Objective: Patient presents to clinic ambulating in [facility] Constitutional: Pt is a well developed 67 [...] shoes. Magda Burton LPN documented in this encounterGrand Lake Joint Township District [facility] Hospital10-06-2023 History of Present illness Narrative* Asim Denis APRN.OFFICE ADMIN - 08/05/2023 3:57 PM EDT CC: Patient [...] disease, without long-term current use of insulin ([facility]) 02/24/2019 Decreased libido 01/30/2018 Degenerative retinal drusen [...] Patient agreeable to treatment plan. Asim Denis APRN.OFFICE ADMIN documented in this encounterGrand Lake Joint Township District [facility] Hospital10-06-2023 Miscellaneous Notes* Telephone Encounter - Raul Domingo LPN - 08/05/2023 12:49 PM EDT Letter has been signed by provider and taken to [facility] for lemon picker. Raul Domingo LPN * Telephone Encounter [...] back, Cheryle Malone RN documented in this encounterGrand Lake Joint Township District Memorial Hospital10-05-2023 History of Present illness Narrative* Anette [...] disease, without long-term current use of insulin ([facility]) 02/24/2019 Decreased libido 01/30/2018 Degenerative retinal drusen [...] 65+ YR, HIGH DOSE, QUADRIVALENT (FLUZONE HIGH-DOSE) Antete Arreola PA-C documented in this encounterCleveland [id number] Miscellaneous Notes* Telephone Encounter - Cruz Prado MD - 05/19/2023 11:06 AM EDT The following approved medication requests have been transmitted electronically. Requested Prescriptions Signed Prescriptions Disp Refills celecoxib (CELEBREX) 200 mg capsule 90 capsule 1 Sig: Take 1 capsule by mouth once daily. Authorizing Provider: CRUZ PRADO MD * Telephone Encounter - Delicia William RN - 05/19/2023 10:30 AM EDT Monica from [facility] mail order pharmacy calling and states they need a 3 month supply with refills inorder for the patient to do the mail order. documented in this encounterGrand Lake Joint Township District [facility] Hospital04-26-2023 History of Present illness Narrative* Jannet Rock, PT - 02/23/2023 10:07 AM EDT Episode Visit Count: 3 Therapist That Will Accept/Oversee The Plan Of Care: Tanya Almazan Start of Care Date: 01/10/23 Onset Date: [...] strengthening Transfer of Care Due To: ([facility]) Patient transferring care to: Amy Almazan SUBJECTIVE: [...] 36 Jannet Rock PT documented in this encounterGrand Lake Joint Township District [facility] Hospital04-19-2023 History of Present illness Narrative* Jannet [...] created on 01/10/23 through 02/22/23 updated 02/16/23 [place] in home exercise program. 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 It will be cheaper for pt. Pending. Anitra Hyde LPN documented in this encounterGrand Lake Joint Township District [facility] Hospital03-30-2023 Miscellaneous Notes* Telephone Encounter - Anitra Hyde LPN - 01/27/2023 8:26 AM EDT Pt was notified of results & voiced understanding. Anitra Hyde LPN * Telephone Encounter - Cruz Prado MD - 01/26/2023 8:13 PM EDT Let patient know hip x-rays showed mild arthritis in the right hip and right sacroiliac joint. Lefthip and sacroiliac joint were ok. documented in this encounterGrand Lake Joint Township District [facility] Hospital03-29-2023 Miscellaneous Notes* Telephone Encounter - Cruz [...] local. Milind Denis MA documented in this encounterGrand Lake Joint Township District [facility] Hospital03-24-2023 History of Present illness Narrative* Aurora [...] 21, 2023 10:13 AM documented in this encounterGrand Lake Joint Township District [facility] Hospital03-14-2023 History of Present illness Narrative* Jannet [...] of Care: created on 01/10/23 through 02/22/23 [place] in home exercise program. 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 Home Environment Patient Lives With: Spouse Intake [...] 40 Jannet Rock PT documented in this encounterGrand Lake Joint Township District [facility] Hospital03-13-2023 History of Past illness Narrative* Problem [...] of this encounter (statuses as of 05/19/2023) [facility]03-13-[facility]23 History of Past illness Narrative* Problem [...] of this encounter (statuses as of 08/05/2023) [facility]03-13-2023 History of Past illness Narrative* Problem [...] of this encounter (statuses as of 08/06/2023) [facility]03-13-2023 History of Past illness Narrative* Problem [...] of this encounter (statuses as of 08/06/2023) [facility]03-13-2023 History of Past illness Narrative* Problem [...] of this encounter (statuses as of 08/16/2023) [facility]03-13-2023 History of Past illness Narrative* Problem [...] of this encounter (statuses as of 08/19/2023) [facility]03-13-2023 History of Past illness Narrative* Problem [...] of this encounter (statuses as of 08/23/2023) [facility]03-13-2023 History of Past illness Narrative* Problem [...] of this encounter (statuses as of 08/26/2023) [facility]03-13-2023 History of Past illness Narrative* Problem [...] of this encounter (statuses as of 09/14/2023) [facility]03-13-2023 History of Past illness Narrative* Problem [...] of this encounter (statuses as of 09/27/2023) [facility]03-13-[facility] History of Past illness Narrative* Problem [...] of this encounter (statuses as of 09/27/2023) [facility]03-13-[facility] History of Past illness Narrative* Problem [...] of this encounter (statuses as of 09/28/2023) [facility]03-13-[facility] History of Past illness Narrative* Problem [...] of this encounter (statuses as of 09/28/2023) [facility]03-13-[facility] History of Past illness Narrative* Problem [...] of this encounter (statuses as of 12/21/2023) [facility]03-[facility] History of Past illness Narrative* Problem [...] of this encounter (statuses as of 01/03/2024) [facility]03-[facility] History of Past illness Narrative* Problem [...] of this encounter (statuses as of 02/01/2024) [facility]03-11-20[facility] History of Present illness Narrative* EDY [...] disease, without long-term current use of insulin ([facility]) 02/24/2019 Decreased libido 01/30/2018 Degenerative retinal drusen of both eyes 05/30/2015 Diabetic eye exam ([facility]) 03/18/2022 Last done 01/05/22 Non-Proliferative Diabetic Retinopathy [...] 02/24/2019 Malignant melanoma of torso excluding breast ([facility]) 02/11/2020 Mixed hyperlipidemia 03/20/2013 Nuclear sclerotic cataract of both eyes 05/30/2015 Peripheral retinal degeneration, paving stone, bilateral 09/09/2017 Peripheral sensory neuropathy due to type 2 diabetes mellitus ([facility]) 08/30/2022 Posterior vitreous detachment of left eye 08/31/2016 Posterior vitreous detachment of right eye 09/09/2017 Renal cyst, right 08/10/2021 Simple, benign US 07/2021 Retinopathy 03/19/2022 Mild B/l Rotator cuff tear, left Senile nuclear sclerosis 05/17/2017 Senile nuclear sclerosis, bilateral 09/09/2017 SVT (supraventricular tachycardia) ([facility]) 05/20/2021 Treated with Ablation: 2013 Type 2 diabetes mellitus with retinopathy, without long-term current use of insulin ([facility]) 09/09/2017 Uncontrolled type 2 diabetes mellitus with [...] MIST) 0.65 % nasal spray Use 1 [place] in the nose as needed for cold/allergysymptoms. [...] ER evaluation. EDY Ta documented in this encounterGrand Lake Joint Township District [facility] Hospital02-24-2023 Miscellaneous Notes* Telephone Encounter - Javad [...] notify patient. An Renee documented in this encounterGrand Lake Joint Township District Memorial Hospital02-14-2023 Miscellaneous Notes* Telephone Encounter - Anitra Hyde LPN - 12/14/2022 2:15 PM EST Pt notified of results & voiced understanding. Anitra Hyde LPN * Telephone Encounter - Cruz Prado MD - 12/14/2022 1:34 PM EST Let patient know low back x-ray showed nothing acute. He does have mild-mod arthritic changes. documented in this encounterGrand Lake Joint Township District Memorial Hospital02-14-2023 History of Present illness Narrative* Gabby Stark APRN.OFFICE ADMIN - 12/14/2022 1:42 PM EST Subjective The history is provided by the patient. No game designer/creative director was used. HPI Dar Rose is a 67 year old male who presents today for CC of fatigue, and a little diarrhea for past 2 days. He has not used any medications. 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 He denies any [...] disease, without long-term current use of insulin ([facility]) 02/24/2019 Decreased libido 01/30/2018 Degenerative retinal drusen of both eyes 05/30/2015 Diabetic eye exam ([facility]) 03/18/2022 Last done 01/05/22 Non-Proliferative Diabetic Retinopathy [...] 02/24/2019 Malignant melanoma of torso excluding breast ([facility]) 02/11/2020 Mixed hyperlipidemia 03/20/2013 Nuclear sclerotic cataract of both eyes 05/30/2015 Peripheral retinal degeneration, paving stone, bilateral 09/09/2017 Peripheral sensory neuropathy due to type 2 diabetes mellitus ([facility]) 08/30/2022 Posterior vitreous detachment of left eye 08/31/2016 Posterior vitreous detachment of right eye 09/09/2017 Renal cyst, right 08/10/2021 Simple, benign US 07/2021 Retinopathy 03/19/2022 Mild B/l Rotator cuff tear, left Senile nuclear sclerosis 05/17/2017 Senile nuclear sclerosis, bilateral 09/09/2017 SVT (supraventricular tachycardia) ([facility]) 05/20/2021 Treated with Ablation: 2013 Type 2 diabetes mellitus with retinopathy, without long-term current use of insulin ([facility]) 09/09/2017 Uncontrolled type 2 diabetes mellitus with stage 3 chronic kidney disease, without long-term current use of insulin 01/30/2018 Vitreous syneresis of both eyes 05/30/2015 Well adult exam 08/23/2022 I have confirmed and edited as necessary, the [facility] Review of Systems Constitutional: Positive for malaise/fatigue. [...] indetail warranting prompt ER evaluation. Gabby Stark APRN.OFFICE ADMIN documented in this encounterGrand Lake Joint Township District [facility] Hospital02-13-2023 Miscellaneous Notes* Telephone Encounter - Cruz [...] markers labs were normal. documented in this encounterGrand Lake Joint Township District Memorial Hospital01-13-2023 Miscellaneous Notes* Telephone Encounter - Cruz [...] Thank you. Elsie Gant documented in this encounterGrand Lake Joint Township District Memorial Hospital01-03-2023 Miscellaneous Notes* Telephone Encounter - Jenn Goodman RN - 11/02/2022 4:02 PM EST Patient calls and notified of results. Patient verbalizes understanding. Jenn Goodman RN * Telephone Encounter - Cruz Prado MD - 11/02/2022 3:58 PM EST Us of legs showed no blood clots. documented in this encounterGrand Lake Joint Township District Memorial Hospital12-19-2022 Miscellaneous Notes* Telephone Encounter - Nveaeh Londono LPN - 10/18/2022 8:46 AM EST Jannet with [facility] is calling in regards to ropinirole [...] patient. Nevaeh Londono LPN documented in this encounterGrand Lake Joint Township District Memorial Hospital12-14-2022 Instructions* Patient Instructions* Cruz Prado MD - 10/13/2022 1:58 PM EST If you want to get the shingrix vaccine for the prevention of shingles please check with insurance to see if covered. Please get labs done on or after 04/01/2023 prior to your next visit. documented in this encounterGrand Lake Joint Township District Memorial Hospital12-14-2022 History of Present illness Narrative* Cruz [...] disease, without long-term current use of insulin ([facility]) 02/24/2019 Decreased libido 01/30/2018 Degenerative retinal drusen [...] 02/24/2019 Malignant melanoma of torso excluding breast ([facility]) 02/11/2020 Mixed hyperlipidemia 03/20/2013 Nuclear sclerotic cataract of both eyes 05/30/2015 Peripheral retinal degeneration, paving stone, bilateral 09/09/2017 Peripheral sensory neuropathy due to type 2 diabetes mellitus ([facility]) 08/30/2022 Posterior vitreous detachment of left eye 08/31/2016 Posterior vitreous detachment of right eye 09/09/2017 Renal cyst, right 08/10/2021 Simple, benign US 07/2021 Rotator cuff tear, left Senile nuclear sclerosis 05/17/2017 Senile nuclear sclerosis, bilateral 09/09/2017 SVT (supraventricular tachycardia) ([facility]) 05/20/2021 Treated with Ablation: 2013 Type 2 diabetes mellitus with retinopathy, without long-term current use of insulin ([facility]) 09/09/2017 Uncontrolled type 2 diabetes mellitus with [...] MIST) 0.65 % nasal spray Use 1 [place] in the nose as needed for cold/allergysymptoms. [...] Lymph 1.00 - 4.00 k/uL 1.43 1.05 [place]% % 10.5 7.1 Abs [place] <0.87 k/uL 0.84 0.56 [place]% % 2.6 [...] Negative Ketones, Urine Negative Negative Negative Specific [place], Ur 1.005 - 1.030 1.013 1.018 Hemoglobin/Blood,Ur [...] and regular exercise - Patient was counseled [id number] by myself (the billing provider) for the [...] prior Cruz Prado MD documented in this encounterGrand Lake Joint Township District [facility] Hospital11-04-2022 Miscellaneous Notes* Telephone Encounter - Milind Denis MA - 09/03/2022 1:07 PM EDT We have 3 attempts to contact patient with no response. Sent a [employer] message. Mailed letter today. Milind Denis MA [...] included. (Newest Message First) Ani Nicholson RN; [facility] Podiatry Pool 1 hour ago (8:05 AM) Please call patient to inform him that his emg does suggest peripipherial neuropathy. If he is having pain, referral to pain management for correction care could be an option Ani Linares DPM * Telephone Encounter - Nicole Nicholson RN - 08/25/2022 9:30 AM EDT EMG/NCV report received via fax from [facility]. Placed on Dr. Linares's desk for review. documented in this encounterGrand Lake Joint Township District Memorial Hospital10-25-2022 Miscellaneous Notes* Telephone Encounter - Natasha Saunders Ma - 08/24/2022 9:42 AM EDT Pt sent [employer] message notifying him of information below from [...] his exam on 10/13/2022. documented in this encounterGrand Lake Joint Township District [facility] Hospital10-10-2022 Miscellaneous Notes* Telephone Encounter - Milind Denis MA - 08/09/2022 10:35 AM EDT Prescription was sent 08/04/2022. Milind Denis MA documented in this encounterGrand Lake Joint Township District Memorial Hospital10-10-2022 Miscellaneous Notes* Telephone Encounter - Anette [...] - 08/06/2022 2:24 PM EDT Monica from [facility] mail away pharmacy calling requesting 90 day rx for Hydroxyzine rx. Rx was sent to them for 30 day supply. Asking for new rx to be sent. Reference number if needed [id number]. Pending rx needs completed with amounts. Please [...] you. Shabana Reed LPN documented in this encounterGrand Lake Joint Township District Memorial Hospital09-19-2022 History of Present illness Narrative* Asim Denis APRN.OFFICE ADMIN - 07/19/2022 6:19 PM EDT Images from [...] history is provided by the patient. No game designer/creative director was used. Review of Systems Constitutional: Negative. [...] disease, without long-term current use of insulin ([facility]) 02/24/2019 Decreased libido 01/30/2018 Degenerative retinal drusen [...] 02/24/2019 Malignant melanoma of torso excluding breast ([facility]) 02/11/2020 Mixed hyperlipidemia 03/20/2013 Nuclear sclerotic cataract of both eyes 05/30/2015 Peripheral retinal degeneration, paving stone, bilateral 09/09/2017 Posterior vitreous detachment of left eye 08/31/2016 Posterior vitreous detachment of right eye 09/09/2017 Renal cyst, right 08/10/2021 Simple, benign US 07/2021 Rotator cuff tear, left Senile nuclear sclerosis 05/17/2017 Senile nuclear sclerosis, bilateral 09/09/2017 SVT (supraventricular tachycardia) ([facility]) 05/20/2021 Treated with Ablation: 2013 Type 2 diabetes mellitus with retinopathy, without long-term current use of insulin ([facility]) 09/09/2017 Uncontrolled type 2 diabetes mellitus with [...] MIST) 0.65 % nasal spray Use 1 [place] in the nose as needed for cold/allergysymptoms. [...] plan. Asim Denis APRN.KRANTHI documented in this encounterGrand Lake Joint Township District [facility] Hospital09-09-2022 Miscellaneous Notes* Telephone Encounter - Raul [...] paxlovid) Milind Denis MA documented in this encounterGrand Lake Joint Township District [facility] Misc[facility] Notes* Telephone Encounter - Lurdes [...] calling: self Call patient at: at home [phone] (home) Was an appointment scheduled: No Patient said he went to urgent care last night; tested positive for COVID. Inquiring about paxlovid. Closing statement: Symptom Call: Thank you for calling [facility], your call is very important. A nurse will call in approximately 2-4 hours during business hours. If this is an emergency, please contact 911. Cherie Collier documented in this encounterGrand [facility]09[facility] History of Present illness Narrative* Alexandria Pace, WOODY.OFFICE ADMIN - 07/08/2022 5:25 PM EDT Subjective HPI Dar presents today with compliant of sinus pain and pressure, along with daily increasing pnd, x2 weeks, he states he stated with a cough today, denies fever, or other respiratory symptoms, states periodical has noted nausea but no v/d. 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 FYI to PCP. Patient is scheduled 07/07/22 * Telephone Encounter - Anitra Hyde LPN - 07/06/2022 11:23 AM EDT Caryl from [facility] calling to report pt canceled appt for sleep study 3X now, last appt canceled was 06/25/22. nAitra Hyde LPN documented in this encounterGrand Lake [facility]08-19[facility] History of Present illness Narrative* Izabela Langford PA-C - 06/18/2022 4:23 PM EDT In lieu of an in-person visit due to COVID-19 concerns, a distance health visit was performed on the patient. This was initially scheduled as a virtual visit, however patient was unable to connect via [employer] platform and requested to complete visit by [...] UP VISIT - ENDOSCOPY NAME: Dar Coello [facility] NO.: [id number] DATE OF SERVICE: 06/18/2022 : 1955 REFERRING [...] eported), and communicating results to the patient/family/caregiver. Iazbela Langford PA-C documented in this encounterGrand [facility]08-02-[facility] Nurse Note* Brianna Solano RN - 06/01/2022 7:11 PM EDT Arrived in Phase II via cart, left lateral position, eyes open, awake and alert, color normal, skinwarm and dry. Respirations WNL and unlabored. Abdomen soft and non distended. Patient awake and ready for snack. Dr Ca at bedside to review results of procedure and follow up documented in this encounterGrand Lake Joint Township [facility]08-02-2022 History and physical note * Gilberto [...] disease, without long-term current use of insulin ([facility]) 02/24/2019 Decreased libido 01/30/2018 Degenerative retinal drusen [...] 02/24/2019 Malignant melanoma of torso excluding breast ([facility]) 02/11/2020 Mixed hyperlipidemia 03/20/2013 Nuclear sclerotic cataract of both eyes 05/30/2015 Peripheral retinal degeneration, paving stone, bilateral 09/09/2017 Posterior vitreous detachment of left eye 08/31/2016 Posterior vitreous detachment of right eye 09/09/2017 Renal cyst, right 08/10/2021 Simple, benign US 07/2021 Rotator cuff tear, left Senile nuclear sclerosis 05/17/2017 Senile nuclear sclerosis, bilateral 09/09/2017 SVT (supraventricular tachycardia) ([facility]) 05/20/2021 Treated with Ablation: 2013 Type 2 diabetes mellitus with retinopathy, without long-term current use of insulin ([facility]) 09/09/2017 Uncontrolled type 2 diabetes mellitus with [...] entered by the nurse and reviewed by nj Nursing Notes: Parvin Perera LPN 03/31/2022 9:56 [...] patient was offered a surgery/procedure at a [facility] facility. I have counseled the patient [...] mail. Izabela Langford PA-C documented in this encounterGrand Lake Joint Township [facility]08-01-2022 Miscellaneous Notes* Telephone Encounter - Izabela [...] labs were all normal. documented in this encounterGrand Lake [facility] Township [facility]07-13-2022 History of Present illness Narrative* Cruz [...] disease, without long-term current use of insulin ([facility]) 02/24/2019 Decreased libido 01/30/2018 Degenerative retinal drusen [...] 02/24/2019 Malignant melanoma of torso excluding breast ([facility]) 02/11/2020 Mixed hyperlipidemia 03/20/2013 Nuclear sclerotic cataract of both eyes 05/30/2015 Peripheral retinal degeneration, paving stone, bilateral 09/09/2017 Posterior vitreous detachment of left eye 08/31/2016 Posterior vitreous detachment of right eye 09/09/2017 Renal cyst, right 08/10/2021 Simple, benign US 07/2021 Rotator cuff tear, left Senile nuclear sclerosis 05/17/2017 Senile nuclear sclerosis, bilateral 09/09/2017 SVT (supraventricular tachycardia) ([facility]) 05/20/2021 Treated with Ablation: 2013 Type 2 diabetes mellitus with retinopathy, without long-term current use of insulin ([facility]) 09/09/2017 Uncontrolled type 2 diabetes mellitus with [...] LAB Cruz Prado MD documented in this encounterGrand Lake [facility]06-01-2022 Miscellaneous Notes* Telephone Encounter - Pam Oviedo - 03/31/2022 10:43 AM EDT 06-01-2022 COLON EGD [facility] documented in this encounterGrand Lake Joint Township District [facility]06-01-2022 History of Present illness Narrative* Izabela [...] nuclear sclerosis, bilateral 09/09/2017 SVT (supraventricular tachycardia) ([facility]) 05/20/2021 Treated with Ablation: 2013 Type 2 [...] patient was offered a surgery/procedure at a [facility] facility. I have counseled the patient [...] mail. Izabela Langford PA-C documented in this encounterGrand Lake [facility]06-01-2022 Nurse Note* Parvin Perera LPN - [...] 2018 Parvin Perera LPN documented in this encounterGrand Lake [facility]05-17-2022 History of Present illness Narrative* Anette [...] nuclear sclerosis, bilateral 09/09/2017 SVT (supraventricular tachycardia) ([facility]) 05/20/2021 Treated with Ablation: 2013 Type 2 diabetes mellitus with retinopathy, without long-term current use of insulin ([facility]) 09/09/2017 Uncontrolled type 2 diabetes mellitus with [...] diagnosis) Set up for sleep study at [facility] - POLYSOMNOGRAM (PSG) 2. Fatigue, unspecified type [...] prior. Order for sleep study sent to [facility]. Anette Arreola PA-C documented in this encounterGrand Lake [facility]04-22-2022 History of Present illness Narrative* Asim Denis APRN.[facility] - 02/19/2022 5:07 PM EDT CC: Patient [...] disease, without long-term current use of insulin ([facility]) 02/24/2019 Decreased libido 01/30/2018 Degenerative retinal drusen [...] occur. Patient agreeable to treatment plan. Asim Densi APRN.OFFICE ADMIN documented in this encounterGrand Lake [facility]04-22-2022 Instructions* Patient Instructions* Asim Denis APRN.CNP [...] pressure and not with prostateproblems can try [id number] Coricidin HBP for congestion. You may find [...] follow up with PCP documented in this encounterGrand Lake Joint Township [facility]04-21-2022 Miscellaneous Notes* Telephone Encounter - Lurdes Hernandez Ma - 02/18/2022 5:09 PM EDT Addressed via refill request. Lurdes Hernandez Ma documented in this encounterGrand Lake Joint Township [facility]04-21-2022 Miscellaneous Notes* Telephone Encounter - Lurdes Hernandez Ma - 02/18/2022 5:01 PM EDT Last office visit: 11/06/21 F/u scheduled: 05/12/22 Lurdes Hernandez Ma documented in this encounterGrand Lake Joint Township [facility]04-19-2022 History of Present illness Narrative* Bear Menezes PA-C - 02/16/2022 10:22 AM EDT Images from the original note were not included. [facility] [place] UROLOGY INTRACAVERNOUS TEACHING APPOINTMENT Patient : Dar [...] POINTS: Survival Skills: History of Drug and terminal carman effects reviewed with patient. yes Discussed with [...] QUICK In Department: UROLOGY documented in this encounterGrand Lake Joint Township [facility]04-06-2022 Miscellaneous Notes* Telephone Encounter - Aleja Zheng TIA - 02/03/2022 11:26 AM EDT Called patient- he is aware that he needs to schedule appointment for IC teaching at [place]. Will make at his convenience. Aleja Zheng LPN documented in this encounterGrand Lake Joint Township [facility]04-04-2022 Miscellaneous Notes* Telephone Encounter - Cheryle [...] Patient calling asking to have referral for [employer] to help with his diabetic control. He would like to stay in [facility] system, asking who does PCP recommend he go to? Pending consult, needs diagnosis. Please advise documented in this encounterGrand Lake [facility]04-01-2022 Miscellaneous Notes* Telephone Encounter - Kori [...] a response to my questions LAWANDA Schaffer, [place], NELY . documented in this encounterGrand Lake Joint Township District [facility]04-01-2022 History of Present illness Narrative* Bear Menezes PA-C - 01/29/2022 4:00 PM EDT VIRTUAL VISIT PROGRESS NOTE This is a virtual visit using [employer] video visit. It required patient-provider interaction for [...] disease, without long-term current use of insulin ([facility]) 02/24/2019 Decreased libido 01/30/2018 Degenerative retinal drusen [...] 02/24/2019 Malignant melanoma of torso excluding breast ([facility]) 02/11/2020 Mixed hyperlipidemia 03/20/2013 Nuclear sclerotic cataract of both eyes 05/30/2015 Peripheral retinal degeneration, paving stone, bilateral 09/09/2017 Posterior vitreous detachment of left eye 08/31/2016 Posterior vitreous detachment of right eye 09/09/2017 Renal cyst, right 08/10/2021 Simple, benign US 07/2021 Rotator cuff tear, left Senile nuclear sclerosis 05/17/2017 Senile nuclear sclerosis, bilateral 09/09/2017 SVT (supraventricular tachycardia) ([facility]) 05/20/2021 Treated with Ablation: 2013 Type 2 diabetes mellitus with retinopathy, without long-term current use of insulin ([facility]) 09/09/2017 Uncontrolled type 2 diabetes mellitus with [...] disease, without long-term current use of insulin ([facility]) > Impotence trial with Ic Injections - he had been given an injection with Dr. Lagos in 2019 Bi-Mix sent LAWANDA [place], [place], [place] documented in this encounterGrand Lake [facility]03-27-2022 History of Present illness Narrative* Carlos A Mireles APRN.OFFICE ADMIN - 01/24/2022 10:46 AM EDT Images from [...] disease, without long-term current use of insulin ([facility]) 02/24/2019 Decreased libido 01/30/2018 Degenerative retinal drusen [...] Carlos A Mireles APRN.CNP documented in this encounterGrand Lake [facility]03-25-2022 Miscellaneous Notes* Telephone Encounter - Connie [...] appointment is not necessary. documented in this encounterGrand Lake Joint Township District [facility] Hospital03-21-2022 Miscellaneous Notes* Telephone Encounter - Cruz [...] notify patient. Eva Collier documented in this encounterGrand Lake [facility]10-04-2021 History of Present illness Narrative* Nkechi [...] 03, 2021 4:36 PM documented in this encounterGrand Lake Joint [facility] Hospital12-19-2020 History of Present illness Narrative* Alannah SmithChaikin Stock ResearchShakira Alvarez - 10/18/2020 8:30 AM EST Radiology [...] Shakira Solitario October 18, 2020 8:40 AM Electronically signed by Alannah SmithChaikin Stock ResearchAntonio [employer] at 10/18/2020 9:02 AM EST documented in this encounterGrand Lake [facility]02-15-2019 History of Past illness Narrative* Problem [...] of this encounter (statuses as of 01/18/2022) [facility] Narrative* Problem [...] of this encounter (statuses as of 01/22/2022) [facility] Narrative* Problem [...] of this encounter (statuses as of 01/24/2022) [facility] of [facility] Narrative* Problem [...] of this encounter (statuses as of 01/29/2022) [facility] of [facility] illness Narrative* Problem [...] of this encounter (statuses as of 01/29/2022) [place] [address]-15-2019 History of Past illness Narrative* Problem Noted [...] of this encounter (statuses as of 02/01/2022) [facility] Narrative* Problem [...] of this encounter (statuses as of 02/03/2022) [facility] Narrative* Problem [...] of this encounter (statuses as of 02/05/2022) [facility] Narrative* Problem [...] of this encounter (statuses as of 02/17/2022) [facility] Narrative* Problem [...] of this encounter (statuses as of 02/18/2022) [facility] Narrative* Problem [...] of this encounter (statuses as of 02/19/2022) [facility] Narrative* Problem [...] of this encounter (statuses as of 02/19/2022) [facility] Narrative* Problem [...] of this encounter (statuses as of 03/16/2022) [facility] Narrative* Problem [...] of this encounter (statuses as of 04/02/2022) [facility] Narrative* Problem [...] of this encounter (statuses as of 05/14/2022) [facility] Narrative* Problem [...] of this encounter (statuses as of 05/31/2022) [facility] Narrative* Problem [...] of this encounter (statuses as of 06/02/2022) [facility] Narrative* Problem [...] of this encounter (statuses as of 06/09/2022) [facility] Narrative* Problem [...] of this encounter (statuses as of 06/22/2022) [facility] Narrative* Problem [...] of this encounter (statuses as of 06/28/2022) [facility] Narrative* Problem [...] of this encounter (statuses as of 07/06/2022) [facility] Narrative* Problem [...] of this encounter (statuses as of 07/08/2022) [facility] Narrative* Problem [...] of this encounter (statuses as of 07/08/2022) [facility] Narrative* Problem [...] of this encounter (statuses as of 07/09/2022) [facility] Narrative* Problem [...] of this encounter (statuses as of 07/09/2022) [facility] Narrative* Problem [...] of this encounter (statuses as of 07/19/2022) [facility] Narrative* Problem [...] of this encounter (statuses as of 08/09/2022) [facility] Narrative* Problem [...] of this encounter (statuses as of 08/09/2022) [facility] Narrative* Problem [...] of this encounter (statuses as of 08/24/2022) [facility] Narrative* Problem [...] of this encounter (statuses as of 09/03/2022) [facility] Narrative* Problem [...] of this encounter (statuses as of 10/14/2022) [facility] Narrative* Problem [...] of this encounter (statuses as of 10/18/2022) [facility] Narrative* Problem [...] of this encounter (statuses as of 11/04/2022) [facility] Narrative* Problem [...] of this encounter (statuses as of 11/12/2022) [address]15-2019 History of Past illness Narrative* Problem [...] of this encounter (statuses as of 12/13/2022) [place] [id number] History of Past illness Narrative* Problem Noted [...] of this encounter (statuses as of 12/14/2022) [facility] Narrative* Problem [...] of this encounter (statuses as of 12/14/2022) [facility] Narrative* Problem [...] of this encounter (statuses as of 12/24/2022) [facility] Narrative* Problem [...] of this encounter (statuses as of 01/08/2023) [facility] N[facility]ative* Problem [...] of this encounter (statuses as of 01/11/2023) [facility] N[facility]ative* Problem [...] of this encounter (statuses as of 01/27/2023) [facility] N[facility]ative* Problem [...] of this encounter (statuses as of 01/27/2023) [address] History of Past illness Narrative* Problem [...] of this encounter (statuses as of 02/01/2023) [facility] Narrative* Problem [...] of this encounter (statuses as of 02/17/2023) [facility] Narrative* Problem [...] of this encounter (statuses as of 02/23/2023) [facility] HospitalDis[facility] summary Author Eloy Graham [facility] June 20, 2023 12:32pm Note Date/Time June 20, 2023 11 :55am [facility] Medical Records Department [address] [place] [address] Emergency Department Summary 06/20/23 MR#: [id number] Acct: [id number] Name: DAR ROSE Rep #:[id number] : 1955 67 From: Eloy Graham MD [...] 2 diabetes mellitus, Dyslipidemia Instructions: Allergy Medicines: [id number] Prescriptions: No Action trazodone 100 mg tablet [...] your Primary Care Provider. Call [facility] ([phone]) or report to the closest Emergency Room. Call 911 if necessary. 06/20/23 1232 <Electronically signed by Eloy Graham MD> Cosigner Signature (if applicable): CC: Dr. Cruz Prado MD ~ Signed [facility] Work Phone: Evaluation note* Diagnosis Controlled type 2 diabetes mellitus with stage 3 chronic kidney disease, without long-term current use of insulin (HCC) documented in this encounter [facility]* Diagnosis Irritation of right eye- Primary Other ill-defined disorder of eye [facility] Diagnosis Impotence of organic origin- Primary Controlled type 2 diabetes mellitus with stage 3 chronic kidney disease, without long-term current use of insulin (HCC) documented in this encounter [facility]* Diagnosis Type 2 diabetes mellitus with retinopathy, without long-term current use of insulin, macular edema presence unspecified, unspecified laterality, unspecified retinopathy severity (HCC)- Primary documented [facility]* Diagnosis Onset Date Resolution Status Dyslipidemia chronic Essential hypertension chron ic Paroxysmal supraventricular tachycardia chronic Dyslipidemia chronic Essential hypertension chron ic Paroxysmal supraventricular tachycardia chronic [facility] Work Phone: Evaluation note* Diagnosis Impotence of organic origin- Primary documented [facility]* Diagnosis Chronic insomnia Insomnia, unspecified documented in this encounter [facility]* Diagnosis Head congestion- Primary Other diseases of nasal cavity and sinuses documented in this encounter [facility]* Diagnosis Hypersomnia- Primary Hypersomnia, unspecified Fatigue, unspecified type Snoring Other dyspnea and respiratory abnormality 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 Matthew's esophagus Abdominal pain, unspecified abdominal location Mixed hyperlipidemia Essential hypertension, benign Type 2 diabetes mellitus with retinopathy, without long-term current use of insulin, macular edema presence unspecified, unspecified laterality, unspecified retinopathy severity (HCC) documented in this encounter [facility]* Diagnosis History of colonic polyps- Primary Personal history of colonic polyps Abdominal pain, unspecified abdominal location 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 Matthew's esophagus History of malignant melanoma Personal history of malignant melanoma of skin documented in this encounter [facility]* Diagnosis Burning sensation of foot- Primary Numbness and tingling of foot Disturbance of skin sensation Pain in both lower extremities Foot pain, bilateral Pain in limb documented in this encounter [facility]* Diagnosis Abdominal pain, unspecified abdominal location History of colon polyps Personal history of colonic polyps Matthew's esophagus with dysplasia Matthew's esophagus documented in this encounter [facility]* Diagnosis 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- Primary Matthew's esophagus Chronic superficial gastritis without bleeding Atrophic gastritis without mention of hemorrhage Diverticulosis Diverticulosis of colon (without mention of hemorrhage) documented in this encounter [facility] [facility] Diagnosis Matthew's esophagus with dysplasia- Primary Matthew's esophagus Abdominal pain, unspecified abdominal location History of colon polyps Personal history of colonic polyps [facility] Diagnosis Sinus congestion- Primary Other diseases of nasal cavity and sinuses Acute upper respiratory infection, unspecified documented [facility] Diagnosis Skin infection- Primary Unspecified local infection of skin and subcutaneous tissue documented in this encounter [facility] note* Diagnosis Anxiety Anxiety state, unspecified documented [facility]* Diagnosis Onset Date Resolution Status Dyslipidemia chronic Essential hypertension chron ic Paroxysmal supraventricular tachycardia [facility] Work Phone: Evaluation note* Diagnosis Type [...] health care facility documented in this encounter [place] [facility] Diagnosis 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) documented in this encounter [place] [facility] Diagnosis Well adult exam- Primary Routine [...] single bacterial disease documented in this encounter [place] [facility]* Diagnosis Lumbar radiculopathy Thoracic or lumbosacral [...] [facility]No assessment information availableWLou[facility] Work Phone: Evaluation note* Diagnosis Irritable bowel syndrome with both constipation and diarrhea- Primary Encounter for immunization Need for other specified prophylactic vaccination against single bacterial disease Controlled type 2 diabetes mellitus with stage 3 chronic kidney disease, without long-term current use of insulin (HCC) [facility] URI, acute- Primary Acute upper respiratory infections of unspecified site [facility] Diagnosis Peripheral sensory neuropathy due [...] disease, without long-term current use of insulin ([facility]) [facility] [...] presence unspecified, unspecified laterality, unspecified retinopathy severity ([facility]) Gastroesophageal reflux disease with esophagitis without hemorrhage Stage 3a chronic kidney disease ([facility]) SVT (supraventricular tachycardia) ([facility]) Other specified cardiac dysrhythmias 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) [facility] Diagnosis Bilateral hip pain Pain in joint, pelvic region and thigh documented in this encounter [place] [facility]* Diagnosis Acute midline low back pain without sciatica documented in this encounter [place] [facility]* Diagnosis RUQ abdominal pain Abdominal pain, right upper quadrant [facility] Diagnosis Right flank pain Abdominal pain, unspecified site [facility]* Diagnosis Gastroesophageal reflux disease with esophagitis without hemorrhage- Primary documented in this encounter [place] [facility]* Diagnosis Gastroesophageal reflux disease with esophagitis without hemorrhage Chronic insomnia Insomnia, unspecified Controlled type 2 diabetes mellitus with stage 3 chronic kidney disease, without long-term current use of insulin (HCC) ETD (Eustachian tube dysfunction), bilateral Seasonal allergic rhinitis due to other allergic trigger [facility]* Diagnosis Controlled type 2 diabetes mellitus with stage 3 chronic kidney disease, without long-term current use of insulin (HCC) documented in this encounter [place] [facility]* Diagnosis Controlled type 2 diabetes mellitus with stage 3 chronic kidney disease, without long-term current use of insulin (HCC)- Primary 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) documented in this encounter [place] [facility]* Diagnosis Controlled type 2 diabetes mellitus with stage 3 chronic kidney disease, without long-term current use of insulin (HCC) 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) [facility] Diagnosis Controlled type 2 diabetes mellitus with stage 3 chronic kidney disease, without long-term current use of insulin (HCC)- Primary [facility]* Diagnosis Chronic insomnia Insomnia, unspecified [facility] Diagnosis 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)- Primary Type 2 diabetes mellitus with retinopathy, without long-term current use of insulin, macular edema presence unspecified, unspecified laterality, unspecified retinopathy severity (HCC) documented in this encounter [place] [facility]* Diagnosis Controlled type 2 diabetes mellitus with stage 3 chronic kidney disease, without long-term current use of insulin (HCC)- Primary documented in this encounter [place] [facility]* Diagnosis Acute recurrent sinusitis, unspecified location- Primary documented in this encounter [place] [facility]* Diagnosis Controlled type 2 diabetes mellitus with stage 3 chronic kidney disease, without long-term current use of insulin ([facility]) 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) Screening for depression documented in this encounter [place] [facility]* Diagnosis Well adult exam- Primary Routine general medical examination at a health care facility Type 2 diabetes mellitus with retinopathy, without long-term current use of insulin, macular edema presence unspecified, unspecified laterality, unspecified retinopathy severity ([facility]) Controlled type 2 diabetes mellitus with stage 3 chronic kidney disease, without long-term current use of insulin (HCC) Stage 3a chronic kidney disease ([facility]) Diabetic eye exam ([facility]) Type II or unspecified type diabetes mellitus without mention of complication, not stated as uncontrolled Essential hypertension, benign Mixed hyperlipidemia Peripheral sensory neuropathy due to type 2 diabetes mellitus ([facility]) SVT (supraventricular tachycardia) ([facility]) Other specified cardiac dysrhythmias Gastroesophageal reflux disease [...] of other medications [facility] Diagnosis Hypercalcemia- Primary [facility]* Diagnosis Diabetic polyneuropathy associated with type 2 diabetes mellitus (HCC)- Primary Arthritis of joint of toe Callus of foot Corns and callosities [facility]* Diagnosis Rhinosinusitis- Primary Unspecified sinusitis [...] foot, initial encounter [facility]* Diagnosis Type 2 diabetes mellitus with retinopathy, without long-term current use of insulin, macular edema presence unspecified, unspecified laterality, unspecified retinopathy severity (HCC)- Primary Chronic insomnia Insomnia, unspecified Controlled type 2 diabetes mellitus with stage 3 chronic kidney disease, without long-term current use of insulin (HCC) 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 If you have recurrence of your facial swelling/mouth swelling please use your EpiPen and then call 911.[facility] Work Phone: Hospital Discharge instructions Additional Instructions You should carry your EpiPen with you at all times.[facility] Work Phone: Reason for referral (narrative)* [...] ART COMPL BI Cruz Prado MD [address] [place] [address] [facility] [place] [address] [place] [address] Referral ID Status Reason Start Date Expiration Date Visits Requested Visits Authorized [id number] Pending Review Auto-Generat ed Referral 05/12/2022 05/12/2023 1 1 [facility] for referral (narrative)* Outpatient Procedure (Routine) - Closed Specialty Diagnoses / Procedures Referred By Aston reyes Referred To [facility] Diagnoses Matthew's esophagus with dysplasia Procedures EGD DIAGNOSTIC ESOPHAGOGASTRODUODENOSC OPY TRANSORAL DIAGNOSTIC Izabela Langford PA-C [address] [place] [address] [facility] [place] [address] [place] [address] Referral ID Status Reason Start Date Expiration Date V isits Requested Visits Authorized [id number] Closed Auto-Generate d Referral 03/31/2022 03/31/2023 1 1 * Outpatient Procedure (Routine) - Closed Specialty Diagnoses / Procedures Referred By Lonnieadalberto t Referred To Contact [facility] Diagnoses Abdominal pain, unspecified abdominal location History of colon polyps Procedures COLONOSCOPY SCREENING COLONOSCOPY FLX DX W/COLLJ SPEC WHEN PFJACQUELINED Izabela Langford PA-C [address] [place] [address] [facility] [address] [place] [address] Referral ID Status Reason Start Date Expiration Date V isits Requested Visits Authorized [id number] Closed Auto-Generate d Referral 03/31/2022 03/31/2023 1 1 [facility] for referral (narrative)* Outpatient Procedure (Routine) - Closed Specialty Diagnoses / Procedures Referred By Lonnieadalberto t Referred To Contact [facility] Diagnoses Matthew's esophagus with dysplasia Procedures EGD DIAGNOSTIC ESOPHAGOGASTRODUODENOSC OPY TRANSORAL DIAGNOSTIC Izabela Langford PA-C [address] [place] [address] [address] Referral ID Status Reason Start Date Expiration Date V isits Requested Visits Authorized [id number] Closed Auto-Generate d Referral 03/31/2022 03/31/2023 1 1 * Outpatient Procedure (Routine) - Closed Specialty Diagnoses / Procedures Referred By Lonnieadalberto t Referred To Contact [facility] Diagnoses Abdominal pain, unspecified abdominal location History of colon polyps Procedures COLONOSCOPY SCREENING COLONOSCOPY FLX DX W/COLLJ SPEC WHEN Izabela Donohue PA-C [address] [place] [address] [facility] [address] [place] [id number] Referral ID Status Reason Start Date Expiration Date V isits Requested Visits Authorized [id number] Closed Auto-Generate d Referral 03/31/2022 03/31/2023 1 1 [facility] for referral (narrative)* Outpatient Procedure (Routine) - Authorized Specialty Diagnoses / Procedures Referred By Contac t Ref[facility] Diagnoses Pain in both lower extremities Procedures US LEG VEIN DVT MADDY VAS LAB DUP-SCAN XTR VEINS COMPLETE BILATERAL STUDY Cruz Prado MD [address] [place], [place] [id number] [facility] [place] [address] [place] [address] Referral ID Status Reason Start Date Expiration Date Visits Requested Visits Authorized [id number] Authorized Auto-Generat ed Referral 2 10/13/[address] [facility] for referral (narrative)* Diagnostic Procedure Only (Routine) - Closed Specialty Diagnoses / Procedures Referred By Contac t Referred To Contact XR IMAGING Diagnoses Bilateral hip pain Procedures XR HIP BILATERAL 5V PEL/AP/LAT EACH HIP RADEX HIPS BILATERAL WITH PELVIS MINIMUM 5 VIEWS Cruz Prado MD [address] [place] [address] [place] [address] Referral ID Status Reason Start Date Expiration Date V isits Requested Visits Authorized [id number] Closed Auto-Generate d Referral 01/21/2023 02/20/2024 1 1 [facility] for referral (narrative)* Diagnostic Procedure Only (Routine) - Closed Specialty Diagnoses / Procedures Referred By Contac t Referred To Contact XR IMAGING Diagnoses Acute midline low back pain without sciatica Procedures XR LUMBAR PARS DEFECT 4V AP/LAT/BOTH OBL RADEX SPINE LUMBOSACRAL MINIMUM 4 VIEWS Cruz Prado MD [address] [place] [address] [place] [address] Referral ID Status Reason Start Date Expiration Date V isits Requested Visits Authorized [id number] Closed Auto-Generate d Referral 12/09/2022 01/08/2024 1 1 [facility] for referral (narrative)* Diagnostic Procedure Only (Routine) - Closed Specialty Diagnoses / Procedures [facility]erred To Contact [facility] Diagnoses RUQ abdominal pain Procedures XR ABDOMEN 1V SUPINE RADIOLOGIC EXAM ABDOMEN 1 VIEW Cruz Prado MD [address] [place] [address] [place] [address] Referral ID Status Reason Start Date Expiration Date V isits Requested Visits Authorized [id number] Closed Auto-Generate d Referral 07/31/2021 08/30/2022 1 1 [facility] for referral (narrative)No reason for referral information [facility] Work [facility] N[facility]* Outpatient Procedure (Routine) - Closed Specialty Diagnoses / Procedures [facility] Diagnoses Matthew's esophagus with dysplasia Procedures EGD DIAGNOSTIC ESOPHAGOGASTRODUODENOSC OPY TRANSORAL DIAGNOSTIC Izabela Langford PA-C [address] 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 Encounter for screening for malignant neoplasm of colon Altered bowel habits Encounter for screening for malignant neoplasm of colon 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 K22.70 (ICD-10-CM) - 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 Procedures COLONOSCOP W/ OR W/O BRSH SPEC EGD W/O OR W/BRUSH/WASH COLONOSCOPY EGD [facility] [address] [place] [address] Referral ID Status Reason Start Date Expiration Date Visits Re quested Visits Authorized [id number] 1 1 [facility] for visit Narrative* Diagnostic Procedure Only (Routine) - Closed Specialty Diagnoses / Procedures Referred By Contac t Referred To Contact XR IMAGING Diagnoses Bilateral hip pain Procedures XR HIP BILATERAL 5V PEL/AP/LAT EACH HIP RADEX HIPS BILATERAL WITH PELVIS MINIMUM 5 VIEWS Cruz Prado MD [address] [place] [address] [place] [address] Referral ID Status Reason Start Date Expiration Date V isits Requested Visits Authorized [id number] Closed Auto-Generate d Referral 01/21/2023 02/20/2024 1 1 [facility] for visit Narrative* Diagnostic Procedure Only (Routine) - Closed Specialty Diagnoses / Procedures Referred By Contac t Referred To Contact XR IMAGING Diagnoses Acute midline low back pain without sciatica Procedures XR LUMBAR PARS DEFECT 4V AP/LAT/BOTH OBL RADEX SPINE LUMBOSACRAL MINIMUM 4 VIEWS Cruz Prado MD [address] [place] [address] [place] [address] Referral ID Status Reason Start Date Expiration Date V isits Requested Visits Authorized [id number] Closed Auto-Generate d Referral 12/09/2022 01/08/2024 1 1 [facility] for visit Narrative* Diagnostic Procedure Only (Routine) - Closed Specialty Diagnoses / Procedures Referred By Contac t Referred To Contact XR IMAGING Diagnoses RUQ abdominal pain Procedures XR ABDOMEN 1V SUPINE RADIOLOGIC EXAM ABDOMEN 1 VIEW Cruz Prado MD [address] [place] [address] [place] [address] Referral ID Status Reason Start Date Expiration Date V isits Requested Visits Authorized [id number] Closed Auto-Generate d Referral 07/31/2021 08/30/2022 1 1 [facility] Summary Purpose Family History No Family History Records Found Relationship Condition Age at Onset Recorded Date/T cori mother Malignant neoplasm Unknown father Alzheimer's disease Unknown Relationship Condition Age at Onset Recorded Date/T cori mother Malignant neoplasm Unknown father Alzheimer's disease Unknown son Ulcerative colitis Unknown Advance Directives No Advanced Directives Records FoundDocuments on File Type Date Recorded Patient Notcher Expl anation Advance Directive(s) 07/01/2021 11:41 AM Advance Directive(s) 09/10/2020 9:35 AM Advance Directive(s) 10/18/2019 8:48 AM Advance Directive(s) 02/05/2019 1:07 PM Advance Directive(s) 02/02/2019 10:16 AM wa iting to be scanned Advance Directive(s) 08/21/2018 8:55 AM Documents on File Type Date Recorded Patient Notcher Expl anation Advance Directive(s) 07/01/2021 11:41 AM Advance Directive(s) 09/10/2020 9:35 AM Advance Directive(s) 10/18/2019 8:48 AM Advance Directive(s) 02/05/2019 1:07 PM Advance Directive(s) 02/02/2019 10:16 AM wa iting to be scanned Advance Directive(s) 08/21/2018 8:55 AM Advance Directive Response Recorded Date/ Time Living Will No February 03, 2022 10:22am Power of Dye Winch Operator Yes February 03 10:22am Documents on File Type Date Recorded Patient Notcher Expl anation Advance Directive(s) 06/01/2022 4:03 PM Advance Directive(s) 07/01/2021 11:41 AM Advance Directive(s) 09/10/2020 9:35 AM Advance Directive(s) 10/18/2019 8:48 AM Advance Directive(s) 02/05/2019 1:07 PM Advance Directive(s) 02/02/2019 10:16 AM wa iting to be scanned Advance Directive(s) 08/21/2018 8:55 AM Documents on File Type Date Recorded Patient Notcher Expl anation Advance Directive(s) 02/05/2019 1:07 PM Documents on File Type Date Recorded Patient Notcher Expl anation Advance Directive(s) 02/05/2019 1:07 PM Advance Directive Response Recorded Date/ Time Living Will No May 10, 2023 6:55pm Power of Dye Winch Operator No May 10 6:55pm Advance Directive Response Recorded Date/ Time Living Will No June 02, 2023 3:27pm Power of Dye Winch Operator Yes June 02 3:27pm Name of Medical Power of Dye Winch Operator CATHERINE ROSE [place] 3rd, 2023 3:27pm Advance Directive Response Recorded Date/ Time Name of Medical Power of Dye Winch Operator CATHERINE ROSE June 02, 2023 3:27pm Name of Medical Power of Dye Winch Operator CATHERINE SPARKS June 20, 2023 11:43am Living Will Yes June 20 11:43am Power of Dye Winch Operator Yes June 20, 2 023 11:43am Reason [...] insulin (HCC) Procedures CONSULT TO ENDOCRINOLOGY OFFICE/OUTPATIENT [facility] 60-74 MINUTES Cruz Prado MD [address] [place] [address] Referral ID Status Reason Start Date Expiration Date Visits Requested Visits Authorized [id number] Authorized PCP Requested Referral 01/29/2022 01/29/2023 1 1 Specialty Diagnoses / Procedures Referred By Contac t Referred To Contact General Surgery Diagnoses Abdominal pain, unspecified abdominal location 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 Procedures CONSULT TO GENERAL SURGERY OFFICE/OUTPATIENT [facility] 60-74 MINUTES Anette Arreola PA-C [address] [place] [address] Referral ID Status Reason Start Date Expiration Date Visits Requested Visits Authorized [id number] Authorized PCP Requested Referral 03/16/2022 03/16/2023 1 1 Specialty Diagnoses / Procedures Referred By Contac t Referred To Contact [facility] Diagnoses Pain in both lower extremities Greater trochanteric bursitis of both hips Acute midline low back pain without sciatica Muscle weakness of lower extremity Procedures PT REHAB FOLLOW UP ORDER THERAPEUTIC EXERCISES RE, EA 15 MIN. Pt [facility] [address] [place] [address] [facility] [place] [address] [place] [address] Referral ID Status Reason Start Date Expiration Date Visits Requested Visits Authorized [id number] Pending Review PCP Requested Referral Auto-Generate d Referral 01/10/2023 04/10/2023 1 1 Referral ID Status Reason Start Date Expiration Date Visits Requested Visits Authorized [id number] Pending Review PCP Requested Referral Auto-Generate d Referral 02/15/2023 05/16/2023 1 1 Specialty Diagnoses / Procedures Referred By Contac t Referred To Contact Gastroenterology Diagnoses Irritable bowel syndrome with both constipation and diarrhea Procedures CONSULT TO GASTROENTEROLOGY OFFICE/OUTPATIENT [facility] 60 MINUTES Lorie Moses APRN.CNP [address] [place] [address] Referral ID Status Reason Start Date Expiration Date Visits Requested Visits Authorized [id number] Authorized PCP Requested Referral 01/31/2024 01/30/2025 1 1 Specialty Diagnoses / Procedures Referred By Contac t Referred To Contact Diagnoses Controlled type 2 diabetes mellitus with stage 3 chronic kidney disease, without long-term current use of insulin (HCC) Anette Arreola PA-C [address] [place] [address] Referral ID Status Reason Start Date Expiration Date Visits Re quested Visits Authorized [id number] Closed 1 1 Specialty Diagnoses / Procedures Referred By Contac t Referred To Contact Diagnoses Controlled type 2 diabetes mellitus with stage 3 chronic kidney disease, without long-term current use of insulin (HCC) 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) Cruz Prado MD [address] [place] [address] Referral ID Status Reason Start Date Expiration Date Visits Re quested Visits Authorized [id number] Closed 1 1 Specialty Diagnoses / Procedures Referred By Contac t Referred To Contact Endocrinology Diagnoses 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, without long-term current use of insulin, macular edema presence unspecified, unspecified laterality, unspecified retinopathy severity (HCC) Procedures CONSULT TO ENDOCRINOLOGY OFFICE/OUTPATIENT [facility] 60 MINUTES Cruz Prado MD [address] [place] [address] Referral ID Status Reason Start Date Expiration Date Visits Requested Visits Authorized [id number] Authorized PCP Requested Referral 11/07/2024 11/07/2025 1 [...] Date Dose Rate Site benzocaine 20% 1 [place] (TOPEX) 1 [place], TOPICAL, DIRECTED, Starting on Tue06/01/22 at 1830, [...] section and content) DATE CREATED AUTHOR 04/21/2018 [facility] DATE CREATED AUTHOR AUTHOR'S ORGANIZ ATION 05/01/2019 [facility] DATE CREATED AUTHOR AUTHOR'S ORGANIZ ATION 07/02/2021 [facility] DATE CREATED AUTHOR AUTHOR'S ORGANIZ ATION 10/28/2023 [facility] DATE CREATED AUTHOR AUTHOR'S ORGANIZ ATION 08/02/2025 [facility] DATE CREATED AUTHOR AUTHOR'S ORGANIZ ATION 08/10/2025 [facility] Comments (unrecognize d section and content) In the event this informatio n is protected by the Federal Confidentiality of Alcohol and Drug Abuse Patient Records regulations: The Federal rules restrict any use of the information to criminally investigate or prosecute any alcohol or drug abuse patient.[facility]In the event this information is protected by the Federal Confidentiality of Alcohol and Drug Abuse Patient Records regulations: The Federal rules restrict any use of the information to criminally investigate or prosecute any alcohol or drug abuse patient.[facility] HospitalIn the event this information is protected by the Federal Confidentiality of Alcohol and Drug Abuse Patient Records regulations: The Federal rules restrict any use of the information to criminally investigate or prosecute any alcohol or drug abuse patient.[facility] HospitalIn the event this information is protected by the Federal Confidentiality of Alcohol and Drug Abuse Patient Records regulations: The Federal rules restrict any use of the information to criminally investigate or prosecute any alcohol or drug abuse patient.[facility] HospitalIn the event this information is protected by the Federal Confidentiality of Alcohol and Drug Abuse Patient Records regulations: The Federal rules restrict any use of the information to criminally investigate or prosecute any alcohol or drug abuse patient.[facility] HospitalIn the event this information is protected by the Federal Confidentiality of Alcohol and Drug Abuse Patient Records regulations: The Federal rules restrict any use of the information to criminally investigate or prosecute any alcohol or drug abuse patient.[facility] HospitalIn the event this information is protected by the Federal Confidentiality of Alcohol and Drug Abuse Patient Records regulations: The Federal rules restrict any use of the information to criminally investigate or prosecute any alcohol or drug abuse patient.[facility] HospitalIn the event this information is protected by the Federal Confidentiality of Alcohol and Drug Abuse Patient Records regulations: The Federal rules restrict any use of the information to criminally investigate or prosecute any alcohol or drug abuse patient.[facility] HospitalIn the event this information is protected by the Federal Confidentiality of Alcohol and Drug Abuse Patient Records regulations: The Federal rules restrict any use of the information to criminally investigate or prosecute any alcohol or drug abuse patient.[facility] HospitalIn the event this information is protected by the Federal Confidentiality of Alcohol and Drug Abuse Patient Records regulations: The Federal rules restrict any use of the information to criminally investigate or prosecute any alcohol or drug abuse patient.[facility] HospitalIn the event this information is protected by the Federal Confidentiality of Alcohol and Drug Abuse Patient Records regulations: The Federal rules restrict any use of the information to criminally investigate or prosecute any alcohol or drug abuse patient.[facility] HospitalIn the event this information is protected by the Federal Confidentiality of Alcohol and Drug Abuse Patient Records regulations: The Federal rules restrict any use of the information to criminally investigate or prosecute any alcohol or drug abuse patient.[facility] HospitalIn the event this information is protected by the Federal Confidentiality of Alcohol and Drug Abuse Patient Records regulations: The Federal rules restrict any use of the information to criminally investigate or prosecute any alcohol or drug abuse patient.[facility] HospitalIn the event this information is protected by the Federal Confidentiality of Alcohol and Drug Abuse Patient Records regulations: The Federal rules restrict any use of the information to criminally investigate or prosecute any alcohol or drug abuse patient.[facility] HospitalIn the event this information is protected by the Federal Confidentiality of Alcohol and Drug Abuse Patient Records regulations: The Federal rules restrict any use of the information to criminally investigate or prosecute any alcohol or drug abuse patient.[facility] HospitalIn the event this information is protected by the Federal Confidentiality of Alcohol and Drug Abuse Patient Records regulations: The Federal rules restrict any use of the information to criminally investigate or prosecute any alcohol or drug abuse patient.[facility] HospitalIn the event this information is protected by the Federal Confidentiality of Alcohol and Drug Abuse Patient Records regulations: The Federal rules restrict any use of the information to criminally investigate or prosecute any alcohol or drug abuse patient.[facility] HospitalIn the event this information is protected by the Federal Confidentiality of Alcohol and Drug Abuse Patient Records regulations: The Federal rules restrict any use of the information to criminally investigate or prosecute any alcohol or drug abuse patient.[facility] HospitalIn the event this information is protected by the Federal Confidentiality of Alcohol and Drug Abuse Patient Records regulations: The Federal rules restrict any use of the information to criminally investigate or prosecute any alcohol or drug abuse patient.[facility] HospitalIn the event this information is protected by the Federal Confidentiality of Alcohol and Drug Abuse Patient Records regulations: The Federal rules restrict any use of the information to criminally investigate or prosecute any alcohol or drug abuse patient.[facility] HospitalIn the event this information is protected by the Federal Confidentiality of Alcohol and Drug Abuse Patient Records regulations: The Federal rules restrict any use of the information to criminally investigate or prosecute any alcohol or drug abuse patient.[facility] HospitalIn the event this information is protected by the Federal Confidentiality of Alcohol and Drug Abuse Patient Records regulations: The Federal rules restrict any use of the information to criminally investigate or prosecute any alcohol or drug abuse patient.[facility] HospitalIn the event this information is protected by the Federal Confidentiality of Alcohol and Drug Abuse Patient Records regulations: The Federal rules restrict any use of the information to criminally investigate or prosecute any alcohol or drug abuse patient.[facility] HospitalIn the event this information is protected by the Federal Confidentiality of Alcohol and Drug Abuse Patient Records regulations: The Federal rules restrict any use of the information to criminally investigate or prosecute any alcohol or drug abuse patient.[facility] HospitalIn the event this information is protected by the Federal Confidentiality of Alcohol and Drug Abuse Patient Records regulations: The Federal rules restrict any use of the information to criminally investigate or prosecute any alcohol or drug abuse patient.[facility] HospitalIn the event this information is protected by the Federal Confidentiality of Alcohol and Drug Abuse Patient Records regulations: The Federal rules restrict any use of the information to criminally investigate or prosecute any alcohol or drug abuse patient.[facility] HospitalIn the event this information is protected by the Federal Confidentiality of Alcohol and Drug Abuse Patient Records regulations: The Federal rules restrict any use of the information to criminally investigate or prosecute any alcohol or drug abuse patient.[facility] HospitalIn the event this information is protected by the Federal Confidentiality of Alcohol and Drug Abuse Patient Records regulations: The Federal rules restrict any use of the information to criminally investigate or prosecute any alcohol or drug abuse patient.[facility] HospitalIn the event this information is protected by the Federal Confidentiality of Alcohol and Drug Abuse Patient Records regulations: The Federal rules restrict any use of the information to criminally investigate or prosecute any alcohol or drug abuse patient.[facility] HospitalIn the event this information is protected by the Federal Confidentiality of Alcohol and Drug Abuse Patient Records regulations: The Federal rules restrict any use of the information to criminally investigate or prosecute any alcohol or drug abuse patient.[facility] HospitalIn the event this information is protected by the Federal Confidentiality of Alcohol and Drug Abuse Patient Records regulations: The Federal rules restrict any use of the information to criminally investigate or prosecute any alcohol or drug abuse patient.[facility] HospitalIn the event this information is protected by the Federal Confidentiality of Alcohol and Drug Abuse Patient Records regulations: The Federal rules restrict any use of the information to criminally investigate or prosecute any alcohol or drug abuse patient.[facility] HospitalIn the event this information is protected by the Federal Confidentiality of Alcohol and Drug Abuse Patient Records regulations: The Federal rules restrict any use of the information to criminally investigate or prosecute any alcohol or drug abuse patient.[facility] HospitalIn the event this information is protected by the Federal Confidentiality of Alcohol and Drug Abuse Patient Records regulations: The Federal rules restrict any use of the information to criminally investigate or prosecute any alcohol or drug abuse patient.[facility] HospitalIn the event this information is protected by the Federal Confidentiality of Alcohol and Drug Abuse Patient Records regulations: The Federal rules restrict any use of the information to criminally investigate or prosecute any alcohol or drug abuse patient.[facility] HospitalIn the event this information is protected by the Federal Confidentiality of Alcohol and Drug Abuse Patient Records regulations: The Federal rules restrict any use of the information to criminally investigate or prosecute any alcohol or drug abuse patient.[facility] HospitalIn the event this information is protected by the Federal Confidentiality of Alcohol and Drug Abuse Patient Records regulations: The Federal rules restrict any use of the information to criminally investigate or prosecute any alcohol or drug abuse patient.[facility] HospitalIn the event this information is protected by the Federal Confidentiality of Alcohol and Drug Abuse Patient Records regulations: The Federal rules restrict any use of the information to criminally investigate or prosecute any alcohol or drug abuse patient.[facility] HospitalIn the event this information is protected by the Federal Confidentiality of Alcohol and Drug Abuse Patient Records regulations: The Federal rules restrict any use of the information to criminally investigate or prosecute any alcohol or drug abuse patient.[facility] HospitalIn the event this information is protected by the Federal Confidentiality of Alcohol and Drug Abuse Patient Records regulations: The Federal rules restrict any use of the information to criminally investigate or prosecute any alcohol or drug abuse patient.[facility] HospitalIn the event this information is protected by the Federal Confidentiality of Alcohol and Drug Abuse Patient Records regulations: The Federal rules restrict any use of the information to criminally investigate or prosecute any alcohol or drug abuse patient.[facility] HospitalIn the event this information is protected by the Federal Confidentiality of Alcohol and Drug Abuse Patient Records regulations: The Federal rules restrict any use of the information to criminally investigate or prosecute any alcohol or drug abuse patient.[facility] HospitalIn the event this information is protected by the Federal Confidentiality of Alcohol and Drug Abuse Patient Records regulations: The Federal rules restrict any use of the information to criminally investigate or prosecute any alcohol or drug abuse patient.[facility] HospitalIn the event this information is protected by the Federal Confidentiality of Alcohol and Drug Abuse Patient Records regulations: The Federal rules restrict any use of the information to criminally investigate or prosecute any alcohol or drug abuse patient.[facility] HospitalIn the event this information is protected by the Federal Confidentiality of Alcohol and Drug Abuse Patient Records regulations: The Federal rules restrict any use of the information to criminally investigate or prosecute any alcohol or drug abuse patient.[facility] HospitalIn the event this information is protected [...] or prosecute any alcohol or drug abuse patient.[facility] HospitalIn the event this information is protected by the Federal Confidentiality of Alcohol and Drug Abuse Patient Records regulations: The Federal rules restrict any use of the information to criminally investigate or prosecute any alcohol or drug abuse patient.[facility] HospitalIn the event this information is protected by the Federal Confidentiality of Alcohol and Drug Abuse Patient Records regulations: The Federal rules restrict any use of the information to criminally investigate or prosecute any alcohol or drug abuse patient.[facility] HospitalIn the event this information is protected by the Federal Confidentiality of Alcohol and Drug Abuse Patient Records regulations: The Federal rules restrict any use of the information to criminally investigate or prosecute any alcohol or drug abuse patient.[facility] HospitalIn the event this information is protected by the Federal Confidentiality of Alcohol and Drug Abuse Patient Records regulations: The Federal rules restrict any use of the information to criminally investigate or prosecute any alcohol or drug abuse patient.[facility] HospitalIn the event this information is protected by the Federal Confidentiality of Alcohol and Drug Abuse Patient Records regulations: The Federal rules restrict any use of the information to criminally investigate or prosecute any alcohol or drug abuse patient.[facility] HospitalIn the event this information is protected by the Federal Confidentiality of Alcohol and Drug Abuse Patient Records regulations: The Federal rules restrict any use of the information to criminally investigate or prosecute any alcohol or drug abuse patient.[facility] HospitalIn the event this information is protected by the Federal Confidentiality of Alcohol and Drug Abuse Patient Records regulations: The Federal rules restrict any use of the information to criminally investigate or prosecute any alcohol or drug abuse patient.[facility] HospitalIn the event this information is protected by the Federal Confidentiality of Alcohol and Drug Abuse Patient Records regulations: The Federal rules restrict any use of the information to criminally investigate or prosecute any alcohol or drug abuse patient.[facility] HospitalIn the event this information is protected by the Federal Confidentiality of Alcohol and Drug Abuse Patient Records regulations: The Federal rules restrict any use of the information to criminally investigate or prosecute any alcohol or drug abuse patient.[facility] HospitalIn the event this information is protected by the Federal Confidentiality of Alcohol and Drug Abuse Patient Records regulations: The Federal rules restrict any use of the information to criminally investigate or prosecute any alcohol or drug abuse patient.[facility] HospitalIn the event this information is protected by the Federal Confidentiality of Alcohol and Drug Abuse Patient Records regulations: The Federal rules restrict any use of the information to criminally investigate or prosecute any alcohol or drug abuse patient.[facility] HospitalIn the event this information is protected by the Federal Confidentiality of Alcohol and Drug Abuse Patient Records regulations: The Federal rules restrict any use of the information to criminally investigate or prosecute any alcohol or drug abuse patient.[facility] HospitalIn the event this information is protected by the Federal Confidentiality of Alcohol and Drug Abuse Patient Records regulations: The Federal rules restrict any use of the information to criminally investigate or prosecute any alcohol or drug abuse patient.[facility] HospitalIn the event this information is protected by the Federal Confidentiality of Alcohol and Drug Abuse Patient Records regulations: The Federal rules restrict any use of the information to criminally investigate or prosecute any alcohol or drug abuse patient.[facility] HospitalIn the event this information is protected by the Federal Confidentiality of Alcohol and Drug Abuse Patient Records regulations: The Federal rules restrict any use of the information to criminally investigate or prosecute any alcohol or drug abuse patient.[facility] HospitalIn the event this information is protected by the Federal Confidentiality of Alcohol and Drug Abuse Patient Records regulations: The Federal rules restrict any use of the information to criminally investigate or prosecute any alcohol or drug abuse patient.[facility] HospitalIn the event this information is protected by the Federal Confidentiality of Alcohol and Drug Abuse Patient Records regulations: The Federal rules restrict any use of the information to criminally investigate or prosecute any alcohol or drug abuse patient.[facility] HospitalIn the event this information is protected by the Federal Confidentiality of Alcohol and Drug Abuse Patient Records regulations: The Federal rules restrict any use of the information to criminally investigate or prosecute any alcohol or drug abuse patient.[facility] HospitalIn the event this information is protected by the Federal Confidentiality of Alcohol and Drug Abuse Patient Records regulations: The Federal rules restrict any use of the information to criminally investigate or prosecute any alcohol or drug abuse patient.[facility] HospitalIn the event this information is protected by the Federal Confidentiality of Alcohol and Drug Abuse Patient Records regulations: The Federal rules restrict any use of the information to criminally investigate or prosecute any alcohol or drug abuse patient.[facility] HospitalIn the event this information is protected by the Federal Confidentiality of Alcohol and Drug Abuse Patient Records regulations: The Federal rules restrict any use of the information to criminally investigate or prosecute any alcohol or drug abuse patient.[facility] HospitalIn the event this information is protected by the Federal Confidentiality of Alcohol and Drug Abuse Patient Records regulations: The Federal rules restrict any use of the information to criminally investigate or prosecute any alcohol or drug abuse patient.[facility] HospitalIn the event this information is protected by the Federal Confidentiality of Alcohol and Drug Abuse Patient Records regulations: The Federal rules restrict any use of the information to criminally investigate or prosecute any alcohol or drug abuse patient.[facility] HospitalIn the event this information is protected by the Federal Confidentiality of Alcohol and Drug Abuse Patient Records regulations: The Federal rules restrict any use of the information to criminally investigate or prosecute any alcohol or drug abuse patient.[facility] HospitalIn the event this information is protected by the Federal Confidentiality of Alcohol and Drug Abuse Patient Records regulations: The Federal rules restrict any use of the information to criminally investigate or prosecute any alcohol or drug abuse patient.[facility] HospitalIn the event this information is protected by the Federal Confidentiality of Alcohol and Drug Abuse Patient Records regulations: The Federal rules restrict any use of the information to criminally investigate or prosecute any alcohol or drug abuse patient.[facility] HospitalIn the event this information is protected by the Federal Confidentiality of Alcohol and Drug Abuse Patient Records regulations: The Federal rules restrict any use of the information to criminally investigate or prosecute any alcohol or drug abuse patient.[facility] HospitalIn the event this information is protected by the Federal Confidentiality of Alcohol and Drug Abuse Patient Records regulations: The Federal rules restrict any use of the information to criminally investigate or prosecute any alcohol or drug abuse patient.[facility] HospitalIn the event this information is protected by the Federal Confidentiality of Alcohol and Drug Abuse Patient Records regulations: The Federal rules restrict any use of the information to criminally investigate or prosecute any alcohol or drug abuse patient.[facility] HospitalIn the event this information is protected by the Federal Confidentiality of Alcohol and Drug Abuse Patient Records regulations: The Federal rules restrict any use of the information to criminally investigate or prosecute any alcohol or drug abuse patient.[facility] HospitalIn the event this information is protected by the Federal Confidentiality of Alcohol and Drug Abuse Patient Records regulations: The Federal rules restrict any use of the information to criminally investigate or prosecute any alcohol or drug abuse patient.[facility] HospitalIn the event this information is protected by the Federal Confidentiality of Alcohol and Drug Abuse Patient Records regulations: The Federal rules restrict any use of the information to criminally investigate or prosecute any alcohol or drug abuse patient.[facility] HospitalIn the event this information is protected by the Federal Confidentiality of Alcohol and Drug Abuse Patient Records regulations: The Federal rules restrict any use of the information to criminally investigate or prosecute any alcohol or drug abuse patient.[facility] HospitalIn the event this information is protected by the Federal Confidentiality of Alcohol and Drug Abuse Patient Records regulations: The Federal rules restrict any use of the information to criminally investigate or prosecute any alcohol or drug abuse patient.[facility] HospitalIn the event this information is protected by the Federal Confidentiality of Alcohol and Drug Abuse Patient Records regulations: The Federal rules restrict any use of the information to criminally investigate or prosecute any alcohol or drug abuse patient.[facility] HospitalIn the event this information is protected by the Federal Confidentiality of Alcohol and Drug Abuse Patient Records regulations: The Federal rules restrict any use of the information to criminally investigate or prosecute any alcohol or drug abuse patient.[facility] HospitalIn the event this information is protected by the Federal Confidentiality of Alcohol and Drug Abuse Patient Records regulations: The Federal rules restrict any use of the information to criminally investigate or prosecute any alcohol or drug abuse patient.[facility] HospitalIn the event this information is protected by the Federal Confidentiality of Alcohol and Drug Abuse Patient Records regulations: The Federal rules restrict any use of the information to criminally investigate or prosecute any alcohol or drug abuse patient.[facility] HospitalIn the event this information is protected by the Federal Confidentiality of Alcohol and Drug Abuse Patient Records regulations: The Federal rules restrict any use of the information to criminally investigate or prosecute any alcohol or drug abuse patient.[facility] HospitalIn the event this information is protected by the Federal Confidentiality of Alcohol and Drug Abuse Patient Records regulations: The Federal rules restrict any use of the information to criminally investigate or prosecute any alcohol or drug abuse patient.[facility] HospitalIn the event this information is protected by the Federal Confidentiality of Alcohol and Drug Abuse Patient Records regulations: The Federal rules restrict any use of the information to criminally investigate or prosecute any alcohol or drug abuse patient.[facility] HospitalIn the event this information is protected by the Federal Confidentiality of Alcohol and Drug Abuse Patient Records regulations: The Federal rules restrict any use of the information to criminally investigate or prosecute any alcohol or drug abuse patient.[facility] HospitalIn the event this information is protected by the Federal Confidentiality of Alcohol and Drug Abuse Patient Records regulations: The Federal rules restrict any use of the information to criminally investigate or prosecute any alcohol or drug abuse patient.[facility] HospitalIn the event this information is protected by the Federal Confidentiality of Alcohol and Drug Abuse Patient Records regulations: The Federal rules restrict any use of the information to criminally investigate or prosecute any alcohol or drug abuse patient.[facility] HospitalIn the event this information is protected by the Federal Confidentiality of Alcohol and Drug Abuse Patient Records regulations: The Federal rules restrict any use of the information to criminally investigate or prosecute any alcohol or drug abuse patient.[facility] HospitalIn the event this information is protected by the Federal Confidentiality of Alcohol and Drug Abuse Patient Records regulations: The Federal rules restrict any use of the information to criminally investigate or prosecute any alcohol or drug abuse patient.[facility] HospitalIn the event this information is protected by the Federal Confidentiality of Alcohol and Drug Abuse Patient Records regulations: The Federal rules restrict any use of the information to criminally investigate or prosecute any alcohol or drug abuse patient.[facility] HospitalIn the event this information is protected by the Federal Confidentiality of Alcohol and Drug Abuse Patient Records regulations: The Federal rules restrict any use of the information to criminally investigate or prosecute any alcohol or drug abuse patient.[facility] HospitalIn the event this information is protected [...] or prosecute any alcohol or drug abuse patient.[facility] HospitalIn the event this information is protected by the Federal Confidentiality of Alcohol and Drug Abuse Patient Records regulations: The Federal rules restrict any use of the information to criminally investigate or prosecute any alcohol or drug abuse patient.[facility] HospitalIn the event this information is protected by the Federal Confidentiality of Alcohol and Drug Abuse Patient Records regulations: The Federal rules restrict any use of the information to criminally investigate or prosecute any alcohol or drug abuse patient.[facility] HospitalIn the event this information is protected by the Federal Confidentiality of Alcohol and Drug Abuse Patient Records regulations: The Federal rules restrict any use of the information to criminally investigate or prosecute any alcohol or drug abuse patient.[facility] HospitalIn the event this information is protected by the Federal Confidentiality of Alcohol and Drug Abuse Patient Records regulations: The Federal rules restrict any use of the information to criminally investigate or prosecute any alcohol or drug abuse patient.[facility] HospitalIn the event this information is protected by the Federal Confidentiality of Alcohol and Drug Abuse Patient Records regulations: The Federal rules restrict any use of the information to criminally investigate or prosecute any alcohol or drug abuse patient.[facility] HospitalIn the event this information is protected by the Federal Confidentiality of Alcohol and Drug Abuse Patient Records regulations: The Federal rules restrict any use of the information to criminally investigate or prosecute any alcohol or drug abuse patient.[facility] HospitalIn the event this information is protected by the Federal Confidentiality of Alcohol and Drug Abuse Patient Records regulations: The Federal rules restrict any use of the information to criminally investigate or prosecute any alcohol or drug abuse patient.[facility] HospitalIn the event this information is protected by the Federal Confidentiality of Alcohol and Drug Abuse Patient Records regulations: The Federal rules restrict any use of the information to criminally investigate or prosecute any alcohol or drug abuse patient.[facility] HospitalIn the event this information is protected by the Federal Confidentiality of Alcohol and Drug Abuse Patient Records regulations: The Federal rules restrict any use of the information to criminally investigate or prosecute any alcohol or drug abuse patient.[facility] HospitalIn the event this information is protected by the Federal Confidentiality of Alcohol and Drug Abuse Patient Records regulations: The Federal rules restrict any use of the information to criminally investigate or prosecute any alcohol or drug abuse patient.[facility] HospitalIn the event this information is protected by the Federal Confidentiality of Alcohol and Drug Abuse Patient Records regulations: The Federal rules restrict any use of the information to criminally investigate or prosecute any alcohol or drug abuse patient.[facility] HospitalIn the event this information is protected by the Federal Confidentiality of Alcohol and Drug Abuse Patient Records regulations: The Federal rules restrict any use of the information to criminally investigate or prosecute any alcohol or drug abuse patient.[facility] HospitalIn the event this information is protected by the Federal Confidentiality of Alcohol and Drug Abuse Patient Records regulations: The Federal rules restrict any use of the information to criminally investigate or prosecute any alcohol or drug abuse patient.[facility] HospitalIn the event this information is protected by the Federal Confidentiality of Alcohol and Drug Abuse Patient Records regulations: The Federal rules restrict any use of the information to criminally investigate or prosecute any alcohol or drug abuse patient.[facility] HospitalIn the event this information is protected by the Federal Confidentiality of Alcohol and Drug Abuse Patient Records regulations: The Federal rules restrict any use of the information to criminally investigate or prosecute any alcohol or drug abuse patient.[facility] HospitalIn the event this information is protected by the Federal Confidentiality of Alcohol and Drug Abuse Patient Records regulations: The Federal rules restrict any use of the information to criminally investigate or prosecute any alcohol or drug abuse patient.[facility] HospitalIn the event this information is protected by the Federal Confidentiality of Alcohol and Drug Abuse Patient Records regulations: The Federal rules restrict any use of the information to criminally investigate or prosecute any alcohol or drug abuse patient.[facility] HospitalIn the event this information is protected by the Federal Confidentiality of Alcohol and Drug Abuse Patient Records regulations: The Federal rules restrict any use of the information to criminally investigate or prosecute any alcohol or drug abuse patient.[facility] HospitalIn the event this information is protected by the Federal Confidentiality of Alcohol and Drug Abuse Patient Records regulations: The Federal rules restrict any use of the information to criminally investigate or prosecute any alcohol or drug abuse patient.[facility] HospitalIn the event this information is protected by the Federal Confidentiality of Alcohol and Drug Abuse Patient Records regulations: The Federal rules restrict any use of the information to criminally investigate or prosecute any alcohol or drug abuse patient.[facility] Reason for Visit (unrecogniz ed section [...] HIGH COMPLEX 45 MINS Cruz Prado MD [address] [place] [address] [facility] [address] [address] Referral ID Status Reason Start Date Expiration Date V isits Requested Visits Authorized [id number] Authorized 10/31/2022 10/30/2023 99 99 Reason Onset [...] dysplasia Procedures CONSULT TO GENERAL SURGERY OFFICE/OUTPATIENT [facility] 60-74 MINUTES Anette Arreola PA-C [address] [place] [address] Referral ID Status Reason Start Date Expiration Date V isits Requested Visits Authorized [id number] Closed PCP Requested Referral 03/16/2022 03/16/2023 1 [...] HIGH COMPLEX 45 MINS Cruz Prado MD [address] [place] [address] [facility] [place] [address] [place] [address] Reason Comments Follow Up Flare up of [...] issue Reason Comments Results Outside facility - [facility] Reason Onset Date Comments Refill Request 10/18/2024 Reason Onset Date Comments Refill Request 10/29/2024 Reason Comments Faxed to [facility] Reason Comments Outside Imaging Reason Comments Outside EGD/ H&P Reason Comments Outside Ft[facility]-[employer]-MM[facility] Ordered Reason Comments Cough ST, congestion x1 [...] Care Teams (unrecognized sec tion and content) Pre Owned Sales Consultant Relationship Specialty Start Date End Date Cruz Prado MD [address] [place], [place] [id number] PCP - General Family Practice 05/20/21 Pre Owned Sales Consultant Relationship Specialty Start Date End Date Cruz Prado MD [address] [place], [place] [id number] PCP - General Family Practice 05/20/21 Pre Owned Sales Consultant Relationship Specialty Start Date End Date Cruz Prado MD [address] [place] [address] PCP - General Family Practice 05/20/21 Pre Owned Sales Consultant Relationship Specialty Start Date End Date Cruz Prado MD [address] [place] [address] PCP - General Family Practice 05/20/21 Pre Owned Sales Consultant Relationship Specialty Start Date End Date Cruz Prado MD [facility] [place] [address] PCP - General Family Practice 05/20/21 Pre Owned Sales Consultant Relationship Specialty Start Date End Date Cruz Prado MD [address] [place] [address], [place] [address] PCP - General Family Practice 05/20/21 Pre Owned Sales Consultant Relationship Specialty Start Date End Date Cruz Prado MD [address] [place] [address], [place] [address] PCP - General Family Practice 05/20/21 Pre Owned Sales Consultant Relationship Specialty Start Date End Date Cruz Prado MD [address] [place] [address], [place] [address] PCP - General Family Practice 05/20/21 Pre Owned Sales Consultant Relationship Specialty Start Date End Date Cruz Prado MD [address] [place] [address], [place] [address] PCP - General Family Practice 05/20/21 Pre Owned Sales Consultant Relationship Specialty Start Date End Date Cruz Prado MD [address] [place] [address], [place] [address] PCP - General Family Practice 05/20/21 Pre Owned Sales Consultant Relationship Specialty Start Date End Date Cruz Prado MD [address] [place] [address], [place] [address] PCP - General Family Practice 05/20/21 Pre Owned Sales Consultant Relationship Specialty Start Date End Date Cruz Prado MD [address] [place] [address] PCP - General Family Practice 05/20/21 Pre Owned Sales Consultant Relationship Specialty Start Date End Date Cruz Prado MD [address] [facility] [place] [address] PCP - General Family Practice 05/20/21 Pre Owned Sales Consultant Relationship Specialty Start Date End Date Alexandre Giles III, MD PCP - General Family Practice 02/23/18 05/19/21 Pre Owned Sales Consultant Relationship Specialty Start Date End Date Cruz Prado MD [facility] [place] [address] PCP - General Family Practice 05/20/21 Pre Owned Sales Consultant Relationship Specialty Start Date End Date Cruz Prado MD [address] [place] [address] PCP - General Family Practice 05/20/21 Pre Owned Sales Consultant Relationship Specialty Start Date End Date Cruz Prado MD [address] [facility] [place] [address] PCP - General Family Medicine 05/20/21 Pre Owned Sales Consultant Relationship Specialty Start Date End Date Cruz Prado MD [address] [facility] [place] [address] PCP - General Family Medicine 05/20/21 Pre Owned Sales Consultant Relationship Specialty Start Date End Date Cruz Prado MD [address] [facility] [place] [address] PCP - General Family Medicine 05/20/21 Pre Owned Sales Consultant Relationship Specialty Start Date End Date Cruz Prado MD [facility] [place] [address] PCP - General Family Medicine 05/20/21 Pre Owned Sales Consultant Relationship Specialty Start Date End Date Cruz Prado MD [address] [place] [address] PCP - General Family Medicine 05/20/21 Pre Owned Sales Consultant Relationship Specialty Start Date End Date Cruz Prado MD [address] [place] [address] PCP - General Family Medicine 05/20/21 Pre Owned Sales Consultant Relationship Specialty Start Date End Date Cruz Prado MD [address] [place] [address] PCP - General Family Medicine 05/20/21 Pre Owned Sales Consultant Relationship Specialty Start Date End Date Cruz Prado MD [facility] [place] [address] PCP - General Family Medicine 05/20/21 Pre Owned Sales Consultant Relationship Specialty Start Date End Date Cruz Prado MD [facility] [place] [address] PCP - General Family Medicine 05/20/21 Pre Owned Sales Consultant Relationship Specialty Start Date End Date Cruz Prado MD [facility] [place] [address] PCP - General Family Medicine 05/20/21 Pre Owned Sales Consultant Relationship Specialty Start Date End Date Cruz Prado MD [facility] [place] [address] PCP - General Family Medicine 05/20/21 Pre Owned Sales Consultant Relationship Specialty Start Date End Date Cruz Prado MD [facility] [place] [address] PCP - General Family Medicine 05/20/21 Pre Owned Sales Consultant Relationship Specialty Start Date End Date Cruz Prado MD [facility] [place] [address] PCP - General Family Medicine 05/20/21 Pre Owned Sales Consultant Relationship Specialty Start Date End Date Cruz Prado MD [address] [place], [place] [id number] PCP - General Family Medicine 05/20/21 Team Status: Active Member Role Status Dates Dr. Alexandre Giles III, MD Family Provider Active Dr. Cruz Prado MD Primary Care Provider Active Team Status: Inactive Member Role Status Dates Dr. Cruz Prado MD Primary Care Provider Active Dr. Nito Crystal DO Emergency Provider Active Pre Owned Sales Consultant Relationship Specialty Start Date End Date Cruz Prado MD [address] [place], [place] [address] PCP - General Family Medicine 05/20/21 Team [...] Dr. Eloy Graham MD Emergency Provider Active Pre Owned Sales Consultant Relationship Specialty Start Date End Date Cruz Prado MD [address] [place] [address] PCP - General Family Medicine 05/20/21 Pre Owned Sales Consultant Relationship Specialty Start Date End Date Cruz Prado MD [address] [place], [place] [id number] PCP - General Family Medicine 05/20/21 Pre Owned Sales Consultant Relationship Specialty Start Date End Date Cruz Prado MD [address] [place] [address] PCP - General Family Medicine 05/20/21 Pre Owned Sales Consultant Relationship Specialty Start Date End Date Cruz Prado MD [address] [place] [address] PCP - General Family Medicine 05/20/21 Pre Owned Sales Consultant Relationship Specialty Start Date End Date Cruz Prado MD [address] [place] [address] PCP - General Family Medicine 05/20/21 Pre Owned Sales Consultant Relationship Specialty Start Date End Date Cruz Prado MD [address] [place] [address] PCP - General Family Medicine 05/20/21 Pre Owned Sales Consultant Relationship Specialty Start Date End Date Cruz Prado MD [address] [place] [address] PCP - General Family Medicine 05/20/21 Pre Owned Sales Consultant Relationship Specialty Start Date End Date Cruz Prado MD [address] [place] [address] PCP - General Family Medicine 05/20/21 Pre Owned Sales Consultant Relationship Specialty Start Date End Date Cruz Prado MD [address] [place] [address] PCP - General Family Medicine 05/20/21 Pre Owned Sales Consultant Relationship Specialty Start Date End Date Cruz Prado MD [address] [place] [address] PCP - General Family Medicine 05/20/21 Pre Owned Sales Consultant Relationship Specialty Start Date End Date Cruz Prado MD [address] [place] [address] PCP - General Family Medicine 05/20/21 Pre Owned Sales Consultant Relationship Specialty Start Date End Date Cruz Prado MD [address] [place] [address] PCP - General Family Medicine 05/20/21 Pre Owned Sales Consultant Relationship Specialty Start Date End Date Cruz Prado MD [address] [place] [address] PCP - General Family Medicine 05/20/21 Pre Owned Sales Consultant Relationship Specialty Start Date End Date Cruz Prado MD [address] [place] [address] PCP - General Family Medicine 05/20/21 Pre Owned Sales Consultant Relationship Specialty Start Date End Date Cruz Prado MD [address] [place] [address] PCP - General Family Medicine 05/20/21 Pre Owned Sales Consultant Relationship Specialty Start Date End Date Cruz Prado MD [address] [place] [address] PCP - General Family Medicine 05/20/21 Pre Owned Sales Consultant Relationship Specialty Start Date End Date Cruz Prado MD [address] [place] [address] PCP - General Family Medicine 05/20/21 Pre Owned Sales Consultant Relationship Specialty Start Date End Date Alexandre Giles III, MD PCP - General Family Medicine 02/23/18 05/19/21 Pre Owned Sales Consultant Relationship Specialty Start Date End Date Cruz Prado MD [address] [place] [address] PCP - General Family Medicine 05/20/21 Pre Owned Sales Consultant Relationship Specialty Start Date End Date Cruz Prado MD [address] [place] [address] PCP - General Family Medicine 05/20/21 Pre Owned Sales Consultant Relationship Specialty Start Date End Date Cruz Prado MD [address] [place] [address] PCP - General Family Medicine 05/20/21 Lorie Moses APRN.OFFICE ADMIN [address] [place] [address] [facility] 10/06/24 Anette Arreola PA-C [address] [place] [address] [facility] 10/06/24 Pre Owned Sales Consultant Relationship Specialty Start Date End Date Cruz Prado MD [address] [place] [address] PCP - General Family Medicine 05/20/21 Lorie Moses APRN.OFFICE ADMIN [address] [place] [address] [facility] 10/06/24 Anette Arreola PA-C [address] [place] [address] [facility] 10/06/24 Pre Owned Sales Consultant Relationship Specialty Start Date End Date Cruz Prado MD [address] [place] [address] PCP - General Family Medicine 05/20/21 Lorie Moses APRN.OFFICE ADMIN [address] [place] [address] [facility] 10/06/24 Anette Arreola PA-C [address] [place] [address] [facility] 10/06/24 Pre Owned Sales Consultant Relationship Specialty Start Date End Date Cruz Prado MD [address] [place] [address] PCP - General Family Medicine 05/20/21 Lorie Moses APRN.OFFICE ADMIN [address] [place] [address] [facility] 10/06/24 Anette Arreola PA-C [address] [place] [address] [facility] 10/06/24 Pre Owned Sales Consultant Relationship Specialty Start Date End Date Cruz Prado MD [address] [place] [address] PCP - General Family Medicine 05/20/21 Lorie Moses, TAX COMPLIANCE MANAGER.OFFICE ADMIN [address] [place] [address] [facility] 10/06/24 Anette Arreola PA-C [address] [place] [address] [facility] 10/06/24 Pre Owned Sales Consultant Relationship Specialty Start Date End Date Cruz Prado MD [address] [place] [address] PCP - General Family Medicine 05/20/21 Lorie Moses APRN.OFFICE ADMIN [address] [place] [address] [facility] 10/06/24 Anette Arreola PA-C [address] [place] [address] [facility] 10/06/24 Pre Owned Sales Consultant Relationship Specialty Start Date End Date Cruz Prado MD [address] [place] [address] PCP - General Family Medicine 05/20/21 Lorie Moses APRN.OFFICE ADMIN [address] [place] [address] [facility] 10/06/24 Anette Arreola PA-C [address] [place] [address] [facility] 10/06/24 Pre Owned Sales Consultant Relationship Specialty Start Date End Date Cruz Prado MD [address] [place] [address] PCP - General Family Medicine 05/20/21 Lorie Moses APRN.OFFICE ADMIN [address] [place] [address] [facility] 10/06/24 Anette Arreola PA-C [address] [place] [address] [facility] 10/06/24 Pre Owned Sales Consultant Relationship Specialty Start Date End Date Cruz Prado MD [address] [place] [address] PCP - General Family Medicine 05/20/21 Lorie Moses APRN.OFFICE ADMIN [address] [place] [address] [facility] 10/06/24 Anette Arreola PA-C [address] [place] [address] [facility] 10/06/24 Pre Owned Sales Consultant Relationship Specialty Start Date End Date Cruz Prado MD [address] [place] [address] PCP - General Family Medicine 05/20/21 Lorie Moses APRN.OFFICE ADMIN [address] [place] [id number] [facility] 10/06/24 Anette Arreola PA-C [address] [place] [address] [facility] 10/06/24 Pre Owned Sales Consultant Relationship Specialty Start Date End Date Cruz Prado MD [address] [place] [address] PCP - General Family Medicine 05/20/21 Lorie Moses APRN.OFFICE ADMIN [address] [place] [address] [facility] 10/06/24 Anette Arreola PA-C [address] [place] [address] [facility] 10/06/24 Pre Owned Sales Consultant Relationship Specialty Start Date End Date Cruz Prado MD [address] [place] [address] PCP - General Family Medicine 05/20/21 Lorie Moses APRN.OFFICE ADMIN [address] [place] [address] [facility] 10/06/24 Anette Arreola PA-C [address] [place] [address] [facility] 10/06/24 Pre Owned Sales Consultant Relationship Specialty Start Date End Date Cruz Prado MD [address] [place] [address] PCP - General Family Medicine 05/20/21 Lorie Moses APRN.OFFICE ADMIN [address] [place] [address] [facility] 10/06/24 Anette Arreola PA-C [address] [place] [address] [facility] 10/06/24 Pre Owned Sales Consultant Relationship Specialty Start Date End Date Cruz Prado MD [address] [place] [address] PCP - General Family Medicine 05/20/21 Lorie Moses APRN.OFFICE ADMIN [address] [place] [address] [facility]24 Anette Arreola PA-C [address] [place], [place] [address] [facility]/06[facility]24 Pre Owned Sales Consultant Relationship Specialty Start Date End Date Cruz Prado MD [address] [place] [address] PCP - General Family Medicine 05/20/21 Anette Arreola PA-C [address] [place] [address] [facility] 10/06/24 Pre Owned Sales Consultant Relationship Specialty Start Date End Date Cruz Prado MD [address] [place] [address] PCP - General [facility] 05/20/21 Anette Arreola PA-C [address] [place] [address] [facility]24 Team Status: Active Member Role/Relationship Status [...] April 29, 2025 End: April 29, 2025 Pre Owned Sales Consultant Relationship Specialty Start Date End Date Cruz Prado MD [address] [place], [place] [address] PCP - General Family Medicine 05/20/21 Lorie Moses APRN.OFFICE ADMIN [address] [place] [address] [id number] [facility] 04/01/25 Anette Arreola PA-C [address] [place] [address] [id number] [facility] 04/01/25 Team Status: Inactive Member Role/Relationship Status Dates Dr. Cruz Prado MD Primary Care Provider Active Start: May 28, 2025 End: May 28, 2025 Dr. Cruz Prado MD Referring Provider Active Start: May 28, 2025 End: May 28, 2025 AKOSUA Durant Attending Provider Active Start: May 28, 2025 End: May 28, 2025 Pre Owned Sales Consultant Relationship Specialty Start Date End Date Cruz Prado MD [address] [place] [address] [id number] PCP - General Family Medicine 05/20/21 Lorie Moses APRN.OFFICE ADMIN [address] [place] [address] [phone] [facility] 04/01/25 Anette Arreola PA-C [address] [place], [place] 0[address] [facility] 04/01/25 Team Status: Active Member [...] BE BASED ON THE PRIMARY CLINICAL RECORDS. [facility] [employer] [facility]. provides no warranty or guarantee of the accuracy or completeness of information in this document.
[2025-08-17 11:04] LABS: Hematocrit 41.3 % (40-54); Hemoglobin 13.9 g/dL (13.0-16.5); Immature Granulocytes Count 0.080 X10^3/uL (0.0-0.0); Mean Corp Hgb Conc 33.7 g/dL (32-36); Mean Corpuscular Volume 86.9 fL (80-94); Mean Platelet Vol. 9.7 fl (6.2-12.0); NRBC Flagged by Analyzer 0 % (0-5); Platelet Count 304 K/mm3 (150-450); RBC Distribution Width CV 12.8 % (11.6-14.6); RBC Distribution Width SD 40.6 fl (35.1-43.9); Red Blood Count 4.75 M/mm3 (4.6-6.2); White Blood Count 9.8 K/mm3 (4.4-11.0)
[2025-08-17 11:57] LABS: AST(SGOT) 24 U/L (<=37); Alanine Aminotransfer ALT/SGPT 32 U/L (<=46); Albumin, Serum 4.3 g/dL (3.4-4.8); Alkaline Phosphatase 66 U/L (40-129); Anion Gap 10 (5-15); BUN 21 mg/dL (4-19); BUN/Creat Ratio 13.0 RATIO (10-20); Calcium,Total 9.3 mg/dL (7.6-11.0); Carbon Dioxide 25.2 mmol/L (21.0-32.0); Chloride 102 mmol/L (98-108); Globulin 2.6 g/dL (2.2-4.2); Glucose 77 mg/dL (70-99); Potassium 4.5 mmol/L (3.3-5.1)
== END | disposition home or self-care (01) ==
PROVIDERS: Nurse Practitioner Acute Care; PCP Family Medicine; Referring Provider Family Medicine; Visit Provider Family Medicine
DX: R79.89 Other specified abnormal findings of blood chemistry (principal); R53.83 Other fatigue
CPT/HCPCS: 36415; 80053; 84403; 85025